=== PATIENT | female | born 1940 | race Caucasian/White ===

== ENCOUNTER 2018-04-05 21:57 | Inpatient (IN) | payer MEDICARE, OTHER, SELFPAY ==
[2018-04-05 21:58] VITALS: BP 161/63; PULSE 61; RESP 12; TEMP 36.3; O2SAT 97; BMI 23.8
--- NOTE | 2018-04-05 22:01 | EKG12_ITS ---
Test Reason : CHEST PAIN Blood Pressure : / mmHG Vent. Rate : 064 BPM Atrial Rate : 064 BPM P-R Int : 174 ms QRS Dur : 078 ms QT Int : 416 ms P-R-T Axes : 071 -10 058 degrees QTc Int : 429 ms Normal sinus rhythm Normal ECG Confirmed by HEMALATHA AREVALO, ELADIO ([id number]), scientific publications editor NILTON UMANZOR ([id number]) on 04/09/2018 8:57:12 AM Referred By: BRONSON/JHONY Confirmed By:ELADIO PENNY MD
--- NOTE | 2018-04-05 22:22 | RAD_ITS ---
STUDY: X-RAY CHEST REASON FOR EXAM: Female, 78 years old. Cough with shortness of breath. TECHNIQUE: 1 view COMPARISON: Prior chest CT exam on February 14, 2014. No prior chest examination. FINDINGS: The lung paiz are well-expanded without major consolidation or focal atelectasis. There is no demonstrated pleural abnormality. The lung nodules as demonstrated on the prior chest CT exam are not apparent on portable chest radiography. The pulmonary nodule at the right lung base may be vaguely visualized just above the surface of the right diaphragm. If so, it does not appear to be substantially changed in size compared to the CT exam. Normal size heart. Normal mediastinum and micah. Normal visualized pulmonary arteries. There is atherosclerotic calcification of the aortic arch with tortuosity. There are diffuse degenerative changes of the visualized thoracic spine. Normal visualized ribs, clavicles, and shoulders. There is no demonstrated abnormality of the visualized soft tissue structures of the upper abdomen. RAD/Chest 1 View (Portable) IMPRESSION: No acute pulmonary findings. Negative for major consolidation, focal atelectasis, cardiomegaly or pleural effusion. Multiple noncalcified nodules were identified on the prior CT exam of February 14, 2014. Only the nodule at the right lung base is vaguely visible and does not appear to be significantly changed in size. The other nodules are not apparent. There is Electronically Signed: Michell Mtz MD at 22:51 EDT , Service support ,
[2018-04-05 22:25] LABS: Absolute Lymphocyte Count 3.86 X10^3/ul (0.83-4.51); Absolute Neutrophil Count 5.1 X10^3/uL (2.0-7.7); Basophil# 0.01 X10^3/uL; Basophil% 0.1 % (0-1); Eosinophil# 0.17 X10^3/uL; Eosinophils% 1.7 % (0-5); Hematocrit 44.1 % (37-47); Lymphocyte # 3.86 X10^3/ul (4.0); Lymphocyte % 37.6 % (19-41); Mean Corp Hgb Conc 31.7 g/gl (32-36); Mean Corpuscular Hgb 26.3 pg (27.0-32.0); Mean Corpuscular Volume 82.7 fL (81-99); Mean Platelet Vol. 11.5 fl (6.2-12.0); Monocyte# 1.12 X10^3/uL; Monocyte% 10.9 % (0-10); Neutrophil % 49.6 % (47-70); POSITIVE COUNT NO; POSITIVE DIFFERENTIAL NO; POSITIVE MORPHOLOGY NO; Platelet Count 158 K/mm3 (150-450); RBC Distribution Width CV 13.9 % (11.6-14.6); RBC Distribution Width SD 41.5 fl (35.1-43.9); Red Blood Count 5.33 M/mm3 (4.2-5.4); White Blood Count 10.3 K/mm3 (4.4-11.0)
[2018-04-05 22:50] VITALS: BP 144/61; PULSE 65; RESP 14; O2SAT 99
[2018-04-05 22:52] LABS: Anion Gap 8 (5-15); BUN 37 mg/dL (7-18); BUN/Creat Ratio 33.9 RATIO (10-20); Calcium,Total 9.5 mg/dL (8.5-10.1); Chloride 104 mmol/L (98-107); Creatinine, Serum 1.09 mg/dL (0.55-1.02); EST Glomerular Filtration Rate 52 mL/min (>60); Est Glom Filt Rate - Afr Amer 63 mL/min (>60); Estimated Creatinine Clearance 37.32 ml/min; Glucose 116 mg/dL (74-106); Potassium 4.4 mmol/L (3.5-5.1); Sodium Level 139 mmol/L (136-145)
[2018-04-05 23:36] VITALS: BP 133/64; PULSE 58; RESP 14; O2SAT 98
[2018-04-06] VITALS (15 sets, daily range): BP systolic 135–159; BP diastolic 64–72; PULSE 50–80; RESP 14–20; TEMP 36.7–37.1; O2SAT 95–99; BMI 24.5; BMI 24.6
[2018-04-06 00:13] LABS: AST(SGOT) 68 U/L (15-37); Alanine Aminotransfer ALT/SGPT 45 U/L (13-56); Albumin, Serum 3.9 g/dL (3.2-5.0); Alkaline Phosphatase 85 U/L (45-117); Bilirubin, Direct 0.28 mg/dL (0.00-0.30); Globulin 3.9 g/dL (2.2-4.2); Lipase 264 U/L (73-393); Protein, Total 7.8 g/dL (6.4-8.2)
--- NOTE | 2018-04-06 00:14 | ED.DCSUM_ITS ---
- ER Visit Summary Date of Service: 04/06/18 Chief Complaint: chest pain History of Present Illness: The patient is a 78 F who presents for chest pain. Patient is having lower substernal upper epigastric chest pain that began this morning at rest. Patient describes it as a crushing pain that radiates straight through into her back. It lasted approximately 20 minutes and then subsided. This afternoon she had another episode that resolved, and then this evening a third episode. At that time she came to the emergency department for evaluation. Pain is improved if she coughs or gets up and walks around. It is worsened by nothing. She denies fever, shortness of breath, abdominal pain, nausea or vomiting, urinary symptoms. She is currently having an episode of vertigo that started 3 days ago and she has had associated nausea with that, but none worsened with the chest pain. She states that she had vaginal bleeding yesterday, and is status post a total hysterectomy. She also felt like her neck was stiff earlier. She has history of diabetes, hypertension, hypercholesterolemia, history of esophageal spasms that she states feels similar to her chest pain today but they occur much higher in her chest, vertigo , cholecystectomy and hysterectomy. She denies smoking. No cardiac history. Physical Examination: Vital signs: afebrile, hemodynamically stable, no hypoxia on room air General: well nourished, well developed, in no distress Skin: warm, dry, no rash, no pallor HEENT: normocephalic and atraumatic; PERRL, EOMI, no nystagmus, moist mucous membranes Cardiovascular: regular rate and rhythm without murmurs, no peripheral edema, 2 + pulses all distal extremities, no chest tenderness Respiratory: No increased work of breathing, lungs are clear to auscultation bilaterally, no rales, rhonchi or wheezing Abdominal: Abdomen is soft, nontender with normoactive bowel sounds, no guarding or rebound, no masses MSK: Moves all extremities, no deformities, normal strength Neuro: Awake and alert, oriented ?4. No facial droop, sensation and motor function intact and symmetric Test Results: Abnormal Lab Results 04/05/18 04/05/18 04/05/18 22:15 22:15 22:15 WBC 10.3 RBC 5.33 Hgb 14.0 Hct 44.1 MCV 82.7 MCH 26.3 L MCHC 31.7 L RDW 13.9 RDW Differential 41.5 Plt Count 158 MPV 11.5 Immature Gran % (Auto) 0.100 Neut % (Auto) 49.6 Lymph % (Auto) 37.6 Harding % (Auto) 10.9 H Eos % (Auto) 1.7 Baso % (Auto) 0.1 Absolute Neuts (auto) 5.1 Absolute Lymphs (auto) 3.86 Total Counted Not Reportable Sodium 139 Potassium 4.4 Chloride 104 Carbon Dioxide 27.0 Anion Gap 8 BUN 37 H Creatinine 1.09 H Estim Creat Clear Calc 37.32 Est GFR (MDRD) Af Amer 63 Est GFR (MDRD) Non-Af 52 L BUN/Creatinine Ratio 33.9 H Glucose 116 H Calcium 9.5 Total Bilirubin 1.30 H Direct Bilirubin 0.28 AST 68 H ALT 45 Alkaline Phosphatase 85 Troponin I < 0.015 Total Protein 7.8 Albumin 3.9 Globulin 3.9 Lipase 264 POC Glucose 04/06/18 04/06/18 04/06/18 02:02 04:51 04:51 WBC 7.5 RBC 4.84 Hgb 12.8 Hct 39.7 MCV 82.0 MCH 26.4 L MCHC 32.2 RDW 13.9 RDW Differential 40.8 Plt Count 149 L MPV 12.5 H Immature Gran % (Auto) 0.300 Neut % (Auto) 49.3 Lymph % (Auto) 34.7 Harding % (Auto) 13.3 H Eos % (Auto) 2.3 Baso % (Auto) 0.1 Absolute Neuts (auto) 3.7 Absolute Lymphs (auto) 2.60 Total Counted Not Reportable Sodium 141 Potassium 4.1 Chloride 105 Carbon Dioxide 27.0 Anion Gap 9 BUN 29 H Creatinine 0.84 Estim Creat Clear Calc 48.43 Est GFR (MDRD) Af Amer 85 Est GFR (MDRD) Non-Af 70 BUN/Creatinine Ratio 34.6 H Glucose 139 H Calcium 8.8 Total Bilirubin Direct Bilirubin AST ALT Alkaline Phosphatase Troponin I < 0.015 < 0.015 Total Protein Albumin Globulin Lipase POC Glucose 04/06/18 06:57 WBC RBC Hgb Hct MCV MCH MCHC RDW RDW Differential Plt Count MPV Immature Gran % (Auto) Neut % (Auto) Lymph % (Auto) Harding % (Auto) Eos % (Auto) Baso % (Auto) Absolute Neuts (auto) Absolute Lymphs (auto) Total Counted Sodium Potassium Chloride Carbon Dioxide Anion Gap BUN Creatinine Estim Creat Clear Calc Est GFR (MDRD) Af Amer Est GFR (MDRD) Non-Af BUN/Creatinine Ratio Glucose Calcium Total Bilirubin Direct Bilirubin AST ALT Alkaline Phosphatase Troponin I Total Protein Albumin Globulin Lipase POC Glucose 146 H Clinical Impression(s) from Imaging Studies Chest X-Ray 04/05/18 22:22 IMPRESSION: No acute pulmonary findings. Negative for major consolidation, focal atelectasis, cardiomegaly or pleural effusion. Multiple noncalcified nodules were identified on the prior CT exam of February 14, 2014. Only the nodule at the right lung base is vaguely visible and does not appear to be significantly changed in size. The other nodules are not apparent. There is Electronically Signed: Michell Mtz MD at 22:51 EDT , Service support , Emergency Department Course and Treatment: Patient presents with 3 episodes of pain that she described as crushing. She has radiation into her back, however if this were an aortic dissection, the pain would not be intermittent with complete resolution for long periods of time in between. EKG showed a sinus rhythm without ischemia or ectopy. Troponin negative. Patient had no leukocytosis. Because of the location of the pain in the radiation into the back, hepatic function and lipase were checked to evaluate for possible pancreatitis. Patient was offered and declined a pelvic exam to evaluate her for the episode of vaginal bleeding that is since resolved. Patient was given aspirin. She remained pain-free while in the emergency department. Because of her age, significant risk factors, and the concerning description of crushing chest pain, patient was admitted for further chest pain workup. Treatment Plan: [] Disposition: [] Impression: Chest pain, concern for atypical angina This note was generated with [employer] software. It may contain incorrect words, spelling, and punctuation that were not noted in review of the chart prior to signing ED Disposition - Plan for ED Patient: Disposition: Acute Care [facility] Chief Complaint: Chest Pain
[2018-04-06] MEDS: Aspirin 81 MG TAB.CHEW 324 MG PO (00:49)
--- NOTE | 2018-04-06 01:43 | EKG12_ITS ---
Test Reason : ADMIT Blood Pressure : / mmHG Vent. Rate : 059 BPM Atrial Rate : 059 BPM P-R Int : 174 ms QRS Dur : 086 ms QT Int : 440 ms P-R-T Axes : 014 -28 052 degrees QTc Int : 435 ms Sinus bradycardia Otherwise normal ECG When compared with ECG of 05-APR-2018 22:07, MANUAL COMPARISON REQUIRED, DATA IS UNCONFIRMED Confirmed by BUD AREVALO, AROLDO ([id number]), staff editor NILTON UMANZOR ([id number]) on 04/11/2018 2:37:45 PM Referred By: STEFANO Confirmed By:AROLDO FARRELL MD
--- NOTE | 2018-04-06 02:58 | PCM.HP.STD ---
Problem List (1) Chest pain Status: Acute (2) Multiple lung nodules Status: Acute (3) Type II diabetes mellitus Status: Chronic (4) Hypertension Status: Chronic History of Present Illness Date of Admission: 04/06/18 Chief Complaint: epigastric pain The patient is a 78 year old F with a PMH as above who presents with 3 intermittent, self-resolving episodes of epigastric pain that she describes as crushing and goes to her back. She had the first episode in the morning, then when around lunch and then her last around dinner, at which point her brought her in to the hospital. She denies any previous cardiac history and does not have a significant family history. She has had previous stress tests in the past that were negative for ischemia, her most recent was 06/2017 with an EF of 83%. When she points to her pain, she points to her epigastric region. There is no radiation to her chest, jaw or arm. She did not have any blurry vision or SOB, and the pain lasted for about 15 minutes. She is currently without chest pain. She states that she has been having an episode of vertigo for the last few days which happens 1-2 times per year for the last 10-15 years. She denies chest pain with activity, only with rest today. She has not had chest pain with activity in the past. Her only h/o chest pain is related to her esophageal spasms. In the ER he EKG was non-ischemic and her troponin was normal. Past Medical History Past Medical History (Chronic Problems): Chronic Problems Peripheral neuropathy (Chronic) Type II diabetes mellitus (Chronic) Hypertension (Chronic) Allergies acetaminophen [From Vicodin] Allergy (Verified 04/05/18 22:00) Unknown codeine Allergy (Verified 04/05/18 22:00) Anaphylaxis hydrocodone bitartrate [From Vicodin] Allergy (Verified 04/05/18 22:00) Unknown zolpidem tartrate [From Ambien] Adverse Reaction (Verified 04/05/18 22:00) Other hallucinations CRAB Allergy (Uncoded 04/05/18 22:00) Swollen lymph glands Home Medications: Ambulatory Orders Medication Instructions Recorded Atorvastatin Calcium [Lipitor] 40 mg PO QHS 02/14/14 Gabapentin 600 mg PO QHS 02/14/14 Metformin [Metformin HCl] 1,000 mg PO BID 02/14/14 Tolterodine Tartrate [Tolterodine 2 mg PO QHS 02/14/14 Tartrate ER] Amlodipine [Norvasc] 5 mg PO DAILY 04/05/18 Glimepiride 1 mg PO DAILY 04/05/18 Hyoscyamine [Levsinex] 0.125 mg PO Q12 PRN 04/05/18 Irbesartan [Avapro] 300 mg PO QHS 04/05/18 Meloxicam 7.5 mg PO DAILY 04/05/18 Ranitidine [Zantac] 150 mg PO BID 04/05/18 Magnesium PO QHS 04/06/18 Sitagliptin Phosphate [Januvia] 100 mg PO DAILY 04/06/18 Surgical History: hysterectomy, - - section, surgery for ectopic , bilateral of oophorectomy. 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 Denies: Hematemesis, Hematochezia, Nausea, Vomiting Genitourinary: Denies: Dysuria Musculoskeletal: Denies: Joint Pain, Joint Tenderness Skin: Denies: Rash, Wounds Neurological: Denies: Numbness, Tingling, Focal weakness Psychiatric: Denies: Anxiety, Depression Hematologic/ Lymphatic: Denies: Easy Bruising, Easy Bleeding VTE Information - Inpt Only VTE Present on Admission: No Patient Problems: Active and Suspected Problems Chest pain (Acute) - Physical Exam General: Alert, Oriented x3, Cooperative, No apparent distress HEENT: Atraumatic, PERRLA, EOMI, Normocephalic Oral: Moist Mucosa Neck: Supple, No JVD Lungs: Clear to auscultation, Normal air movement, No rhonchi, No wheeze, No rales Cardiovascular: Regular rate, Regular Rhythm, Normal S1, Normal S2 Abdomen: Soft, Non Tender, Non-Distended, No Hepato-splenomegaly Extremities: No edema, Capillary Refill Less than 3 Seconds Skin: No rashes, No breakdown Neurological: Neuro grossly intact, Sensory exam intact to light touch and pain Psych/Mental Status: Normal Affect, Appropriate Vital Signs Temp Pulse Resp BP Pulse Ox 98.3 F 62 16 159/72 H 95 04/06/18 01:30 04/06/18 01:57 04/06/18 01:30 04/06/18 01:30 04/06/18 01:30 Oxygen Delivery Method Room Air Weight: 143 lb 4.807 oz Body Mass Index (BMI) 24.5 Assessment/Plan All Active Problems Chest pain (Acute) Liver lesion, right lobe (Acute) Kidney stone on left side (Acute) Multiple lung nodules (Acute) 1. Chest pain r/o/Epigastric pain/HTN/HLD - Unsure as to the cause, she did state that the third time she had her chest pain she began to panic which made the pain worse and to last longer - No significant family h/o heart disease and no personal hx with a stress test which was normal in june 2017 - Will trend troponins - EKG in am - Will monitor overnight - C/w norvasc, ARB, statin 2. DM2 - will hold her home medications and start SSI 3. Urinary incontinence - Stable - c/w tolterodine 4. Pulmonary nodules - The previous CT chest nodules do not appear to be present after 3 years on the CXR today - Outpatient follow-up DVT: Heparin Diet: Cardiac Code Visit OBSV E&M: 91065 Initial observation care L3
[2018-04-06 05:33] LABS: Absolute Neutrophil Count 3.7 X10^3/uL (2.0-7.7); Basophil# 0.01 X10^3/uL; Basophil% 0.1 % (0-1); Eosinophil# 0.17 X10^3/uL; Eosinophils% 2.3 % (0-5); Hematocrit 39.7 % (37-47); Hemoglobin 12.8 g/dl (12.0-15.0); Lymphocyte % 34.7 % (19-41); Mean Corp Hgb Conc 32.2 g/gl (32-36); Mean Corpuscular Hgb 26.4 pg (27.0-32.0); Mean Platelet Vol. 12.5 fl (6.2-12.0); Monocyte% 13.3 % (0-10); Neutrophil % 49.3 % (47-70); Platelet Count 149 K/mm3 (150-450); RBC Distribution Width CV 13.9 % (11.6-14.6); RBC Distribution Width SD 40.8 fl (35.1-43.9); Red Blood Count 4.84 M/mm3 (4.2-5.4); White Blood Count 7.5 K/mm3 (4.4-11.0)
[2018-04-06 05:34] LABS: POSITIVE COUNT NO; POSITIVE DIFFERENTIAL NO; POSITIVE MORPHOLOGY NO
[2018-04-06 05:47] LABS: Anion Gap 9 (5-15); BUN 29 mg/dL (7-18); BUN/Creat Ratio 34.6 RATIO (10-20); Calcium,Total 8.8 mg/dL (8.5-10.1); Chloride 105 mmol/L (98-107); Creatinine, Serum 0.84 mg/dL (0.55-1.02); EST Glomerular Filtration Rate 70 mL/min (>60); Est Glom Filt Rate - Afr Amer 85 mL/min (>60); Estimated Creatinine Clearance 48.43 ml/min; Glucose 139 mg/dL (74-106); Potassium 4.1 mmol/L (3.5-5.1); Sodium Level 141 mmol/L (136-145)
[2018-04-06 07:10] LABS: Bedside Glucose 146 mg/dL (70-110)
[2018-04-06] MEDS: Famotidine 20 MG Tablet PO (09:38)
[2018-04-06] MEDS: Atorvastatin Calcium 40 MG Tablet PO (09:38)
[2018-04-06] MEDS: amLODIPine 5 MG Tablet PO (09:38)
[2018-04-06] MEDS: Losartan Potassium 100 MG Tablet PO (09:39)
[2018-04-06] MEDS: Insulin Lispro 100 UNIT/ML INSULN.PEN SQ (11:10)
[2018-04-06 11:11] LABS: Bedside Glucose 207 mg/dL (70-110)
--- NOTE | 2018-04-06 16:20 | STEWCON_ITS ---
Reason For Study: CHEST PAIN Stress Results Protocol: Terence Protocol Maximum Predicted HR: 143 bpm Target HR: 122 bpm% Max imum Predicted HR: 90 % DurationHeart Rate Stage (mm:ss) (bpm) BPCom ment BASELINE 58 148/68 STAGE 1 3:00 11 1 152/60 STAGE 2 3:00 12 2 182/60 STAGE 3 0:18 12 9 / PEEWEE BLE TO KEEP UP WITH SPEED OF TREADMILL RECOVERY\ 70 140/50 Stress Duration: 6:18 mm:ss Maximum Stress HR: 129 bpm Baseline Echocardiogram Findings Stress Echo Wall motion Data Resting WMIntermediate WMStress WM Resting Wall Motion Wall Motion Stress No regional wall motion No regional wall motion abnormalities noted. abnormalities noted. Ejection Fraction 60 %. Ejection Fraction 75 %. Stress Results Normal blood pressure response to exercise. Exercise was stopped due to achievement of target heart rate. Interpretation Summary Exercise stress echo. Stress protocol: Resting EKG demonstrates sinus bradycardia with a rate of 57 bpm. Resting blood pressure is 148/68 mmHg. The patient exercised according to the regular Terence protocol for a total duration of 6 minutes and 18 seconds. The maximum heart rate attained was 129 bpm which was 90% of the maximum predicted heart rate the maximum workload attained was 7.9 metabolic equivalents. The patient maintained sinus rhythm throughout the recording. At rest there were no ST or T-wave changes noted suggest ischemia at peak exercise upsloping ST changes only were noted with no meet the criteria for ischemia. No clinical angina was noted the test was terminated due to leg fatigue and shortness of breath. Stress echo: The resting echocardiographic images demonstrate an ejection fraction of 60-65% no wall motion abnormalities were noted. The patient exercised according to the Terence protocol for a total duration of 6 minutes and 18 seconds the ejection fraction at peak exercise was noted to be 70-75%. No wall motion abnormalities were noted and no obvious ischemia was present. Conclusion: Normal exercise stress echo with no evidence of ischemia at a moderate workload. Ordering Physician: Stevie Lunsford Performed By: Bee Ospina, MAHAD, RVT
[2018-04-06] MEDS: metFORMIN HCl 1,000 MG Tablet 1000 MG PO (17:14)
[2018-04-06] MEDS: Tolterodine Tartrate 2 MG CAP.SA PO (22:40)
[2018-04-06] MEDS: Gabapentin 600 MG Tablet PO (22:40)
[2018-04-07 03:12] VITALS: PULSE 44
[2018-04-07 03:35] VITALS: BP 138/65; PULSE 51; RESP 16; TEMP 36.9; O2SAT 95
--- NOTE | 2018-04-07 05:00 | EKG12_ITS ---
Test Reason : AM Blood Pressure : / mmHG Vent. Rate : 051 BPM Atrial Rate : 051 BPM P-R Int : 168 ms QRS Dur : 088 ms QT Int : 464 ms P-R-T Axes : 049 -11 029 degrees QTc Int : 427 ms Sinus bradycardia Otherwise normal ECG When compared with ECG of 06-APR-2018 01:53, MANUAL COMPARISON REQUIRED, DATA IS UNCONFIRMED Confirmed by BUD AREVALO, AROLDO ([id number]), non linear editor NILTON UMANZOR ([id number]) on 04/11/2018 2:35:28 PM Referred By: STEFANO Confirmed By:AROLDO FARRELL MD
[2018-04-07 06:21] LABS: Hematocrit 39.5 % (37-47); Hemoglobin 12.8 g/dl (12.0-15.0); Mean Corp Hgb Conc 32.4 g/gl (32-36); Mean Corpuscular Hgb 26.7 pg (27.0-32.0); Mean Corpuscular Volume 82.3 fL (81-99); Platelet Count 137 K/mm3 (150-450); RBC Distribution Width CV 13.7 % (11.6-14.6); RBC Distribution Width SD 40.8 fl (35.1-43.9); White Blood Count 7.2 K/mm3 (4.4-11.0)
[2018-04-07 06:30] LABS: Anion Gap 9 (5-15); BUN 22 mg/dL (7-18); BUN/Creat Ratio 26.4 RATIO (10-20); Calcium,Total 8.8 mg/dL (8.5-10.1); Chloride 106 mmol/L (98-107); Creatinine, Serum 0.83 mg/dL (0.55-1.02); EST Glomerular Filtration Rate 71 mL/min (>60); Est Glom Filt Rate - Afr Amer 86 mL/min (>60); Estimated Creatinine Clearance 49.02 ml/min; Glucose 126 mg/dL (74-106); Potassium 4.1 mmol/L (3.5-5.1); Sodium Level 141 mmol/L (136-145)
[2018-04-07 06:35] LABS: Scan Indicated on CBC? Y/N NO
[2018-04-07 06:39] LABS: Partial Thromboplast Time 32.1 Seconds (24.1-36.2); Prothrombin Time (Protime)PT. 13.2 SECONDS (11.7-14.9)
[2018-04-07 07:57] VITALS: PULSE 48
[2018-04-07 09:35] VITALS: BP 137/67; PULSE 58; RESP 16; TEMP 36.8; O2SAT 97
--- NOTE | 2018-04-07 11:52 | CASEMGMT ---
Face to Face with patient for initial transition planning/care coordination assessment. TACHO CABALLERO introduced self and role at [facility], pt voices understanding and consents to assessment at this time. Pt is sitting up on side of bed in no distress at this time. Pt is A/Ox4 at this time and answers all questions appropriately at this time. Care providers, pharmacy, and demographics verified. See attached link. Pt voices no further concerns/needs at this time. Advised pt to ask for CM if any further questions/concerns/needs arise, voices understanding. [place] T[place] CAB[place]
[2018-04-07 11:58] VITALS: PULSE 64
[2018-04-07] MEDS: Famotidine 20 MG Tablet PO (14:08)
--- NOTE | 2018-04-07 14:11 | DCINST_ITS ---
- Discharge Diagnoses Current Active Problems: Current Active and Chronic Problems Chest pain (Acute) You will use the following diet at home:: Calorie/Carbohydrate Controlled ( specify 1200, 1400, etc) - 1800 neeta Your food should be the consistency of: Regular Your liquids should be the consistency of: Regular/Thin Discharge Activity: Return to Normal Activity Weight Bearing Status: Full weight bearing Allergies/Adverse Reactions: Allergies acetaminophen [From Vicodin] Allergy (Verified 04/05/18 22:00) Unknown codeine Allergy (Verified 04/05/18 22:00) Anaphylaxis hydrocodone bitartrate [From Vicodin] Allergy (Verified 04/05/18 22:00) Unknown zolpidem tartrate [From Ambien] Adverse Reaction (Verified 04/05/18 22:00) Other hallucinations CRAB Allergy (Uncoded 04/05/18 22:00) Swollen lymph glands Medications to take at Discharge Atorvastatin Calcium [Lipitor] 40 mg PO QHS 02/14/14 Gabapentin 600 mg PO QHS 02/14/14 Metformin [Metformin HCl] 1,000 mg PO BID 02/14/14 Tolterodine Tartrate [Tolterodine Tartrate ER] 2 mg PO QHS 02/14/14 Amlodipine [Norvasc] 5 mg PO DAILY 04/05/18 Glimepiride 1 mg PO DAILY 04/05/18 Hyoscyamine [Levsinex] 0.125 mg PO Q12 PRN 04/05/18 Irbesartan [Avapro] 300 mg PO QHS 04/05/18 Meloxicam 7.5 mg PO DAILY 04/05/18 Ranitidine [Zantac] 150 mg PO BID 04/05/18 Magnesium PO QHS 04/06/18 Sitagliptin Phosphate [Januvia] 100 mg PO DAILY 04/06/18 Primary Care Physician: Dhiraj Julian MD [Primary Care Provider] - Please follow up with your Primary Care Physician in: in 2-3 weeks Test Results: Test results from this visit will be discussed in further detail at your follow- up appointment, if applicable.
--- NOTE | 2018-04-09 10:11 | PCM.DC.SUM ---
Discharge Date and Diagnosis Date of Admission: 04/06/18 Date of Discharge: 04/07/18 - Primary Discharge Diagnosis #1 musculoskeletal chest pain #2 type 2 diabetes - Secondary Discharge Diagnosis Chronic Problems Peripheral neuropathy (Chronic) Type II diabetes mellitus (Chronic) Hypertension (Chronic) Hospital Course and Treatment Operations: None Procedures: - - Stress echocardiogram Summary of Care Provided: The patient is a 78 year old F who was seen in the emergency room at [facility] with chief complaint of precordial chest pain. Workup in the emergency room included labs which were remarkable for a creatinine of 1.09 and a BUN of 37, bilirubin was high at 1.3, AST was high at 68, troponin was below 0.015. EKG showed no evidence of ischemic changes. Patient's chest x-ray did not show any acute process. Patient was placed in observation status initially, this was changed to full admission same day, serial enzymes were obtained and these were all negative. Patient underwent a stress echocardiogram on 04/07/18, this test showed no evidence of ischemia and the patient had a normal EF. On that date, patient was seen and examined by myself and felt to be in stable condition for discharge home Discharge Activity: Return to Normal Activity Weight Bearing Status: Full weight bearing Home Medications: Medications to take at Discharge Atorvastatin Calcium [Lipitor] 40 mg PO QHS 02/14/14 Gabapentin 600 mg PO QHS 02/14/14 Metformin [Metformin HCl] 1,000 mg PO BID 02/14/14 Tolterodine Tartrate [Tolterodine Tartrate ER] 2 mg PO QHS 02/14/14 Amlodipine [Norvasc] 5 mg PO DAILY 04/05/18 Glimepiride 1 mg PO DAILY 04/05/18 Hyoscyamine [Levsinex] 0.125 mg PO Q12 PRN 04/05/18 Irbesartan [Avapro] 300 mg PO QHS 04/05/18 Meloxicam 7.5 mg PO DAILY 04/05/18 Ranitidine [Zantac] 150 mg PO BID 04/05/18 Magnesium PO QHS 04/06/18 Sitagliptin Phosphate [Januvia] 100 mg PO DAILY 04/06/18 Primary Care Physician: Dhiraj Julian MD [Primary Care Provider] - Please follow up with your Primary Care Physician in: in 2-3 weeks Please Follow Up With: Dhiraj Julian MD Disposition: Home Minutes spent on discharge:: 31 Patient Condition:: Stable Medical Necessity - Tobacco Use Smoking Status: Never smoker Meaningful Use Info Meaningful Use Diagnoses (Choose all that apply): None applicable Code Visit Inpatient E&M: 75521 Disch Hosp
== END 2018-04-07 14:10 | disposition home or self-care (01) | DRG 313 ==
LOC: ED 23:10 → PCU 04-06 00:46
PROVIDERS: Admitting Provider Family Medicine; Emergency Provider Emergency Medicine; Family Provider Family Medicine; PCP Family Medicine; Visit Provider Internal Medicine
DX: R07.89 Other chest pain (principal); R32 Unspecified urinary incontinence; E11.42 Type 2 diabetes mellitus with diabetic polyneuropathy; Z79.84 Long term (current) use of oral hypoglycemic drugs; I10 Essential (primary) hypertension; E78.5 Hyperlipidemia, unspecified
CPT/HCPCS: 36415; 71045; 80048; 80076; 82962; 83690; 84484; 85025; 85027; 85610; 85730; 93005; 93017; 93350; 99283; J7030; J7040; A4216

== ENCOUNTER 2019-02-11 19:51 | Emergency (ER) | payer MEDICARE, OTHER, SELFPAY ==
[2019-02-11 19:52] VITALS: BP 159/82; PULSE 73; RESP 17; RESP 18; TEMP 36.3; BMI 25.2
--- NOTE | 2019-02-11 20:26 | ED.VISSUMM ---
- ER Visit Summary Date of Service: 02/11/19 Chief Complaint: Left-sided nosebleed History of Present Illness: The patient is a 78 F typically does not get nosebleeds. States that she did have one several weeks ago and Dr. Gianluca Sorenson of the ENT group did have to cauterize it. She denies being on any blood thinners. She is had no nasal trauma. Physical Examination: Well-appearing older female no acute distress. Vital signs are stable and afebrile. Initial blood pressure 159/82. HEENT exam blood for the left naris. Small blood in the posterior pharynx. No clots. Neck nontender. Lungs clear to auscultation bilaterally. Heart regular rhythm no murmur. Abdomen soft nontender. Extremities moves all 4. Neurologically awake alert. Test Results: None. Emergency Department Course and Treatment: Afrin soaked cotton balls were placed in both sides of her nose. After about 10 minutes he removed. Bleeding it resolved. The bleeding was on the left side anteriorly. I placed a nasal tampon. On repeat exam at 2127 patient has no further bleeding is doing well. She is comfortable being discharged home. Treatment Plan: Anterior nasal pack. Antibiotic therapy. Follow-up in ENT in 2 to 3 days. Return if rebleed and unable to stop. Disposition: Discharge Impression: Acute nosebleed. Anterior nasal pack by ER This note was generated with [employer] dictation software. It may contain incorrect words, spelling, and punctuation that were not noted in review of the chart prior to signing ED Disposition - Plan for ED Patient: Referrals: Dhiraj Julian MD [Primary Care Provider] -
--- NOTE | 2019-02-11 21:31 | ED.DEP ---
ED Disposition - Plan for ED Patient: Disposition: Home or Assisted Living Instructions: Nosebleed Prescriptions: Amoxicillin 250 mg PO TID #9 cap Prescription Printed Referrals: Jeff Hernandez MD [STAFF PHYSICIAN] - 3-5 Days Additional Instructions: If rebleeds hold direct pressure by pinching her nose for 20 minutes. If unable stop return to the ER. Nasal packing was pulled out in 3 days. Call and follow-up with Dr. Sorenson's office. Antibiotic daily until pack removed.
[2019-02-11 21:41] VITALS: RESP 18
== END 2019-02-11 21:42 | disposition home or self-care (01) ==
PROVIDERS: Emergency Provider Emergency Medicine; Family Provider Family Medicine; PCP Family Medicine
DX: R04.0 Epistaxis (principal); E11.9 Type 2 diabetes mellitus without complications; Z79.84 Long term (current) use of oral hypoglycemic drugs; Z79.899 Other long term (current) drug therapy
CPT/HCPCS: 30901; 99282

== ENCOUNTER 2019-02-12 22:12 | Emergency (ER) | payer MEDICARE, OTHER, SELFPAY ==
[2019-02-11 19:52] VITALS: BMI 25.2
[2019-02-12 22:13] VITALS: BP 154/75; PULSE 61; RESP 12; TEMP 36.4; O2SAT 98; BMI 24.4
--- NOTE | 2019-02-12 22:35 | ED.VIS.GEN ---
History of Present Illness Chief Complaint: Nosebleed Informant: Patient Narrative: Patient stated just prior to arrival her left nares started bleeding again. She was seen in the department yesterday for nosebleed. She was given Afrin nasal spray and a clip to hold pressure. A nasal tampon was inserted. Right now she is having mild stabbing. Nothing going down the back of her throat. She has an appointment on Saturday with ENT. - Past Medical History (1) Chest pain Status: Acute (2) Kidney stone on left side Status: Acute (3) Liver lesion, right lobe Status: Acute (4) Multiple lung nodules Status: Acute (5) Hypertension Status: Chronic (6) Peripheral neuropathy Status: Chronic (7) Type II diabetes mellitus Status: Chronic Past Medical History - Allergies and Home Meds Allergies/Adverse Reactions: Allergies acetaminophen [From Vicodin] Allergy (Verified 02/12/19 22:13) Unknown codeine Allergy (Verified 02/12/19 22:13) Anaphylaxis hydrocodone bitartrate [From Vicodin] Allergy (Verified 02/12/19 22:13) Unknown zolpidem tartrate [From Ambien] Adverse Reaction (Verified 02/12/19 22:13) Other hallucinations CRAB Allergy (Uncoded 02/12/19 22:13) Swollen lymph glands Primary Care Physician: Dhiraj Julian MD [Primary Care Provider] - Prior records reviewed: Yes Past Medical History: None - See problem list Surgical History: hysterectomy, - - section, surgery for ectopic , bilateral of oophorectomy. Smoking Status: Never smoker Alcohol: None Drugs: None - Family History Maternal Family History: Reports: Heart Disease Paternal Family History: Reports: No pertinent history Review of Systems General: Denies: Chills, Fever, Sweats Eyes: Denies: Visual changes - bilaterally, Diplopia ENT: Reports: - - Left nosebleed. Denies: Rhinorrhea, Sore throat Cardiovascular: Denies: Chest pain, Palpitations Respiratory: Denies: Dyspnea, Cough, Dyspnea on exertion Gastrointestinal: Denies: Abdominal pain, Nausea, Vomiting, Diarrhea, Melena, Hematochezia Genitourinary: Denies: Dysuria, Hematuria, Frequency Musculoskeletal: Denies: Back pain, Extremity Pain Skin: Denies: Rash, Wounds Neurological: Denies: Headache, Weakness, Numbness Physical Exam Vital Signs/Narrative: Vital Signs Temp Pulse Resp BP Pulse Ox 02/12/19 22:13 97.5 F L 61 12 154/75 H 98 General: Well nourished, Well developed, No Acute Distress Head: Normocephalic, Atraumatic Eyes: Perrl, EOMI ENT: Moist mucous membranes, No rhinorrhea, - - Left anterior nasal packing and perfect position. No active bleeding. Throat exam normal. Mild fluid when she dabs that is pink in nature Neck: Supple, Nontender Cardiovascular: Regular rate, Regular rhythm, No murmurs Respiratory: No distress, CTA bilaterally, Chest nontender Abdomen: Soft, Nontender, Nondistended, Normal bowel sounds Back: Nontender, Normal Inspection Extremities: Nontender, No edema Skin: Normal color, No rash Neurological: Alert, Oriented x3, Cranial nerves II-XII grossly intact, Normal Strength, Normal Sensation Psychological: Normal affect, Normal Mood Diagnostic/Tx/Re-eval - Medical Decision Making Afrin nasal spray was sprayed in her nose over the tampon. This was all the patient needed. Bleeding stopped with pressure for 30 minutes. What was happening was her nasal tampon was getting hard. She was given Afrin to use at home. She will follow-up as an outpatient ED Disposition - Plan for ED Patient: Disposition: Home or Assisted Living Diagnosis: Epistaxis Instructions: Nosebleed Referrals: Dhiraj Julian MD [Primary Care Provider] - Additional Instructions: Follow with your ear nose and throat doctor as scheduled
[2019-02-12] MEDS: Oxymetazoline 0.05% 1 SPRAY SPRAY.BTL NASAL (22:37)
[2019-02-12 23:36] VITALS: BP 150/60; PULSE 74; RESP 16; O2SAT 96
== END 2019-02-12 23:36 | disposition home or self-care (01) ==
PROVIDERS: Emergency Provider Emergency Medicine; Family Provider Family Medicine; PCP Family Medicine
DX: R04.0 Epistaxis (principal); I10 Essential (primary) hypertension; E11.42 Type 2 diabetes mellitus with diabetic polyneuropathy; Z79.84 Long term (current) use of oral hypoglycemic drugs; Z79.899 Other long term (current) drug therapy
CPT/HCPCS: 99282

== ENCOUNTER → 2019-03-12 12:48 | Outpatient (CLI) | payer MEDICARE, OTHER, SELFPAY ==
[2019-02-12 22:13] VITALS: BMI 24.4
--- NOTE | 2019-03-12 13:08 | CDU_ITS ---
Reason For Study: Carotid artery stenosis Rt. Velocities/BP Lt. Velocities/BP Prox CCA 73.9/6.9 cm/sec. Prox CCA 77.7/11.4 cm/sec. Mid CCA 78.3/11.3 cm/sec. Mid CCA 88.8 cm/sec. Dist CCA 70.6/11.3 cm/sec. Dist CCA 74/12.6 cm/sec. Prox ICA 140.7/18.9 cm/sec. Prox ICA 65.5/12.6 cm/sec. Mid ICA 125.7/16 cm/sec. Mid ICA 76.1/13.5 cm/sec. Dist ICA 65.4/11.4 cm/sec. Dist ICA 59.7/12.4 cm/sec. Rt. ICA/CCA = 1.9. Lt. ICA/CCA = 1.0. Prox ECA 179.5/16.3 cm/sec. Prox ECA 67.3/6.9 cm/sec. Rt. Vert. 50.7/10.2 cm/sec. Lt. Vert. 42.8/10.7 cm/sec. Right Extracranial There is homogeneous, irregular atherosclerotic plaque noted in the right common carotid artery. There is heterogeneous, irregular atherosclerotic plaque noted in the right internal carotid artery. There is heterogeneous, irregular atherosclerotic plaque noted in the right external carotid artery. Antegrade flow is noted in the right vertebral artery. Left Extracranial There is heterogeneous, irregular atherosclerotic plaque noted in the left common carotid artery. There is heterogeneous, irregular atherosclerotic plaque noted in the left internal carotid artery. There is heterogeneous, irregular atherosclerotic plaque noted in the left external carotid artery. Antegrade flow is noted in the left vertebral artery. Procedure Carotid Duplex [id number]. Exam performed in department. Interpretation Summary Moderate (50-69%) stenosis right extracranial internal carotid. Mild (<50%) stenosis left extracranial internal carotid. Flow within the vertebral arteries is antegrade bilaterally. Ordering Physician: Reinaldo Kumar Referring Physician: Abdiaziz Julian Performed By: Shavon Graham RVT
== END ==
PROVIDERS: Family Provider Family Medicine; PCP Family Medicine; Referring Provider Ophthalmology; Visit Provider Ophthalmology
DX: I65.22 Occlusion and stenosis of left carotid artery (principal)
CPT/HCPCS: 93880

== ENCOUNTER 2019-06-23 02:00 | Emergency (ER) | payer MEDICARE, OTHER, SELFPAY ==
[2019-06-23 02:01] VITALS: BP 173/72; BP 191/80; PULSE 50; PULSE 53; RESP 16; TEMP 36.3; O2SAT 97; BMI 24.0
--- NOTE | 2019-06-23 02:29 | ED.DCSUM_ITS ---
History of Present Illness Chief Complaint: Nosebleed Informant: Patient Onset: Today Current Severity: Mild Maximum Severity: Mild Narrative: Patient presents with nosebleed from the left side of her nose that woke her f rom sleep about 45 minutes ago. Patient was seen here in early February with similar and required nasal packing. Patient states she is been using her saline nasal spray as instructed. No recent facial trauma. She is not on anticoagulants. - Past Medical History (1) Kidney stone on left side Status: Chronic (2) Liver lesion, right lobe Status: Chronic (3) Multiple lung nodules Status: Chronic (4) Hypertension Status: Chronic (5) Peripheral neuropathy Status: Chronic (6) Type II diabetes mellitus Status: Chronic Past Medical History - Allergies and Home Meds Allergies/Adverse Reactions: Allergies acetaminophen [From Vicodin] Allergy (Verified 06/23/19 02:01) Unknown codeine Allergy (Verified 06/23/19 02:01) Anaphylaxis hydrocodone bitartrate [From Vicodin] Allergy (Verified 06/23/19 02:01) Unknown zolpidem tartrate [From Ambien] Adverse Reaction (Verified 06/23/19 02:01) Other hallucinations CRAB Allergy (Uncoded 06/23/19 02:01) Swollen lymph glands Primary Care Physician: Dhiraj Julian MD [Primary Care Provider] - Doctors: Dr Hernandez Surgical History: hysterectomy, - - section, surgery for ectopic , bilateral of oophorectomy. Lives: Spouse/ Significant Other Smoking Status: Unknown if ever smoked - Family History Maternal Family History: Reports: Heart Disease Paternal Family History: Reports: No pertinent history Review of Systems General: Denies: Chills, Fever Eyes: Denies: Visual changes - bilaterally ENT: Denies: Rhinorrhea, Sore throat Cardiovascular: Denies: Chest pain Respiratory: Denies: Dyspnea Gastrointestinal: Denies: Abdominal pain Neurological: Denies: Headache Hematologic: Denies: Easy bruising, Easy bleeding Allergy: Denies: Uticaria Physical Exam Vital Signs/Narrative: Vital Signs Temp Pulse Resp BP Pulse Ox 06/23/19 02:01 97.3 F L 53 L 16 191/80 H 97 Inital Vital Signs reviewed: Yes General: Well nourished, Well developed ENT: Moist mucous membranes, - - Holding pressure to bilateral nares. Bleeding controlled at this time. Neck: Supple Cardiovascular: Regular rate, Regular rhythm Respiratory: No distress, CTA bilaterally Abdomen: Soft, Nontender Neurological: Alert, Oriented x3 Psychological: Normal affect Diagnostic/Tx/Re-eval - Medical Decision Making Cottonball soaked in Afrin and Cetacaine was first applied to the nose. After 10 minutes this was removed and patient was able to blow large clots out of her nose. Sinus pack was placed in the left nare as patient requested not to have a large Rhino Rocket again if at all possible. Bleeding has been well controlled. She is been able to ambulate up and down the malave without any further bleeding. She is given a nasal clip for home if needed. I did advise her that if her bleeding returns she may need to return for the larger packing. She voices understanding and agreement. She will follow-up with Dr. Osman. ED Disposition - Plan for ED Patient: Disposition: Home or Assisted Living Diagnosis: Epistaxis Instructions: Nosebleed Referrals: Jeff Hernandez MD [STAFF PHYSICIAN] - 3-5 Days
[2019-06-23] MEDS: Oxymetazoline 0.05% 1 SPRAY SPRAY.BTL 2 SPRAY NASAL (02:30)
[2019-06-23 03:26] VITALS: BP 173/72; PULSE 50; RESP 16; O2SAT 97
[2019-06-23] MEDS: Tetracaine/Benzocaine/Butamben 1 APPLIC TOPICAL (03:28)
== END 2019-06-23 03:20 | disposition home or self-care (01) ==
PROVIDERS: Emergency Provider Emergency Medicine; Family Provider Family Medicine; PCP Family Medicine
DX: R04.0 Epistaxis (principal); I10 Essential (primary) hypertension; E11.42 Type 2 diabetes mellitus with diabetic polyneuropathy; Z87.442 Personal history of urinary calculi; Z79.84 Long term (current) use of oral hypoglycemic drugs; Z79.899 Other long term (current) drug therapy
CPT/HCPCS: 30901; 99282

== ENCOUNTER 2020-08-12 11:00 | Outpatient (RCR) | payer MEDICARE, OTHER, SELFPAY | END 2020-08-12 23:59 | LOC: IMMUN 11:00 | PROVIDERS: PCP Family Medicine; Visit Provider Family Medicine | DX: Z23 Encounter for immunization (principal) | CPT/HCPCS: 0011A; 0012A ==

== ENCOUNTER 2020-11-14 19:53 | Emergency (ER) | payer MEDICARE, OTHER, SELFPAY ==
[2020-11-14 19:54] VITALS: BP 128/63; PULSE 66; RESP 16; TEMP 36.6; O2SAT 97; BMI 24.2
--- NOTE | 2020-11-14 21:10 | EDS_ITS ---
HPI HPI - GI History of Present Illness Chief Complaint: Nausea/Vomiting Abdominal Pain/Flank Pain Onset: Days (4-5) Context: Gradual Onset Timing: Intermittent Quality: Sharp Location: - (lower abd) Current Severity: Gone Maximum Severity: Moderate Worsened by: - (occurs when having a BM/diarrhea only, then dissapates) Relieved by: Nothing Nausea/Vomiting/Emesis GI Symptom: Positive for Nausea and Vomiting Onset: Days (4-5) Quality: Positive for Nonbilious; Negative for Blood streaks, Coffee ground and Hematemesis Severity: Severe Diarrhea/Melena/Hematochezia GI Symptom: Positive for Diarrhea; Negative for Melena and Hematochezia Onset: Days (4-5) Stool Quality: Positive for Watery and Black; Negative for Maroon and BRB per rectum Severity: Severe Associated Symptoms Associated Symptoms: Negative for Dysuria, Frequency, Hematuria and Urgency Narrative Narrative: Patient presenting with gastroenteritis-like symptoms after her daughter, with whom she has daily contact, had similar symptoms and got over them after about 6 days. Patient saw her PCP today for this, she is feeling like she is having trouble keeping fluids in her since she is vomiting with any food intake and with anything other than sips of fluids, and with the diarrhea, and was sent here to get IV fluids. She has felt lightheaded on occasion but had no syncope. Recent Illness/Hospitalization: No [facility] Medical History (Updated 11/14/20 @ 22:[address] Osito Rizvi MD) Hypertension Kidney stone on left side Liver lesion, right lobe Multiple lung nodules Peripheral neuropathy Type II diabetes mellitus Home Medications Metformin [Metformin Hcl] 1,000 mg PO BID 02/14/14 [History Last Taken 04/05/18] atorvastatin 40 mg PO QHS 02/14/14 [History Last Taken 04/05/18 40 MG] gabapentin 300 mg PO QHS 02/14/14 [History Last Taken 04/04/18] tolterodine 2 mg PO QHS 02/14/14 [History Last Taken 04/04/18] Ranitidine [Zantac] 150 mg PO BID 04/05/18 [History Last Taken 04/05/18] amlodipine 5 mg PO DAILY 04/05/18 [History Last Taken 04/05/18] glimepiride 1 mg PO DAILY 04/05/18 [History Last Taken 04/05/18] hyoscyamine sulfate 0.125 mg PO Q12 PRN 04/05/18 [History Last Taken 04/05/18] irbesartan [Avapro] 300 mg PO QHS 04/05/18 [History Last Taken 04/06/18] meloxicam 15 mg PO DAILY 04/05/18 [History Last Taken 04/05/18] Januvia 100 mg PO DAILY 04/06/18 [History Last Taken 04/05/18] hydrochlorothiazide 25 mg PO DAILY 02/11/19 [History Last Taken Unknown] apremilast [Otezla] 30 mg PO BID 11/14/20 [History Last Taken Unknown] bupropion HCl 75 mg PO DAILY 11/14/20 [History Last Taken Unknown] fluoxetine mg 11/14/20 [History Last Taken Unknown] magnesium 250 mg PO DAILY 11/14/20 [History Last Taken Unknown] ondansetron 8 mg PO Q8H PRN PRN #20 tab 11/14/20 [Rx Last Taken Unknown] Allergy/AdvReac Type Severity Reaction Status Date / Time acetaminophen [From Vicodin] Allergy Unknown Verified 11/14/20 19:56 codeine Allergy Anaphylaxis Verified 11/14/20 19:56 hydrocodone bitartrate Allergy Unknown Verified 11/14/20 19:56 [From Vicodin] zolpidem tartrate AdvReac Other Verified 11/14/20 19:56 [From Ambien] CRAB Allergy Swollen Uncoded 11/14/20 19:56 lymph glands Surgical History H/O: hysterectomy History of cholecystectomy Social History Smoking Status: Never smoker ROS ROS ED Constitutional Constitutional ED: Denies chills or fever(s) Eyes Eyes: Denies change in vision or diplopia ENT ENT ED: Denies rhinorrhea or sore throat Cardiovascular Cardiovascular: Denies chest pain or palpitations Respiratory/Chest Respiratory/Chest: Denies cough or dyspnea Gastrointestinal Gastrointestinal: Reports abdominal pain, diarrhea, nausea, vomiting and other Details: I know what melena looks/smells like, and I don't have melena. ; Denies melena Genitourinary Genitourinary ED: Denies dysuria or hematuria Musculoskeletal Musculoskeletal: Denies back pain or neck pain Integumentary Denies abscess or rash Neurologic Neurologic: Denies headache(s), paresthesias or weakness Psychiatric Psychiatric: Denies anxiety or suicidal thoughts EXAM Physical Exam Const Vital Signs: 11/14/20 19:54 Temperature 98 F Temperature Source Temporal Pulse Rate 66 Respiratory Rate 16 Blood Pressure 128/63 H Blood Pressure Mean 84 Pulse Ox 97 Oxygen Delivery Method Room Air Positive well nourished and well developed General Appearance ED: well developed and NAD HEENT Reports moist mucous membranes normocephalic and atraumatic Eyes PERRL and EOMs intact bilaterally Neck full ROM and supple Resp normal respiratory effort and clear to auscultation bilaterally Cardio regular rate, regular rhythm and no murmurs GI non-tender and non-distended Auscultation: hyperactive bowel sounds Palpation: soft Back/Spine no CVA tenderness General Back: other FROM Extremity normal to inspection General Extremety ED: Negative for edema, pulses abnormal or tenderness General Extremity: Negative for edema or pulses abnormal Neuro oriented x3, CN's II-XII intact bilaterally and no sensory deficits noted Sensorium / Orientation: awake and alert Motor Exam: strength 5/5 throughout Skin no rashes or lesions noted and no wounds MDM MDM MDM Narrative Medical decision making narrative: Labs as noted below are reviewed. She has prerenal azotemia but no electrolyte disturbances, chronically elevated total bilirubin that is no higher than usual, and no significant leukocytosis or leftward shift. Family was asking about her diverticulosis, I do not think she has acute diverticulitis given the pain that she was having, these are likely unrelated. Her abdomen is benign, she does not have a leukocytosis, and given her recent contact with her daughter who was ill with similar symptoms I suspect this is viral in etiology. She feels much better after IV fluids and Zofran. She is comfortable going home with a prescription for Zofran and following up with her doctor. I did offer stool studies but she did not have diarrhea while she was here. We discussed reasons to return and she is comfortable with that plan. Lab Data Attestation: I reviewed the patient's lab results. Labs: Laboratory Results - last 24 hr 11/14/20 11/14/20 20:35 20:35 WBC 10.3 RBC 5.21 Hgb 13.9 Hct 43.8 MCV 84.1 MCH 26.7 L MCHC 31.7 L RDW Std Deviation 41.4 RDW Coeff of Finesse 13.5 Plt Count 171 MPV 12.4 H Immature Gran % (Auto) 0.200 Neut % (Auto) 54.7 Lymph % (Auto) 34.7 Iroquois % (Auto) 8.7 Eos % (Auto) 1.4 Baso % (Auto) 0.3 Absolute Neuts (auto) 5.6 Absolute Lymphs (auto) 3.56 Nucleated RBC % 0 Sodium 139 Potassium 3.9 Chloride 102 Carbon Dioxide 28.0 Anion Gap 9 BUN 29 H Creatinine 1.02 Estim Creat Clear Calc 38.62 Est GFR (MDRD) Af Amer 67 Est GFR (MDRD) Non-Af 56 L BUN/Creatinine Ratio 28.4 H Glucose 113 H Calcium 9.4 Total Bilirubin 1.20 H AST 28 ALT 43 Alkaline Phosphatase 80 Total Protein 7.2 Albumin 3.8 Globulin 3.4 Albumin/Globulin Ratio 1.1 Discharge Plan Triage Chief Complaint: Nausea/Vomiting ED Provider: Osito Rizvi Dx/Rx/DC Orders Clinical Impression: Viral gastroenteritis, Mild dehydration Instructions: ED Dehydration (Adult), ED Gastroenteritis, Viral (Adult) Prescriptions: New ondansetron 4 mg tablet,disintegrating 8 mg PO Q8H PRN PRN (Reason: Nausea) Qty: 20 RF: 0 No Action tolterodine 2 MG capsule,extended release 24hr 2 mg PO QHS RF: 0 atorvastatin 40 MG tablet 40 mg PO QHS RF: 0 gabapentin 300 MG capsule 300 mg PO QHS RF: 0 Metformin [Metformin Hcl] 1,000 MG tablet 1,000 mg PO BID RF: 0 amlodipine 5 MG tablet 5 mg PO DAILY RF: 0 glimepiride 1 MG tablet 1 mg PO DAILY RF: 0 meloxicam 7.5 MG tablet 15 mg PO DAILY RF: 0 hyoscyamine sulfate 0.375 MG tablet 0.125 mg PO Q12 PRN (Reason: esophageal spasms) RF: 0 irbesartan [Avapro] 300 MG tablet 300 mg PO QHS RF: 0 Ranitidine [Zantac] 150 MG tablet 150 mg PO BID RF: 0 Januvia 100 MG tablet 100 mg PO DAILY RF: 0 hydrochlorothiazide 25 MG tablet 25 mg PO DAILY RF: 0 fluoxetine 10 mg Tablet RF: 0 bupropion HCl 75 mg tablet 75 mg PO DAILY RF: 0 magnesium 250 mg Tablet 250 mg PO DAILY RF: 0 Otezla 30 mg tablet 30 mg PO BID RF: 0 Primary Care Provider: Dhiraj Julian Referrals: Dhiraj Julian MD [Primary Care Provider] - 1-2 Days if not improving Disposition Disposition: Home, self care
[2020-11-14 21:22] LABS: Absolute Lymphocyte Count 3.56 X10^3/uL (0.83-4.51); Absolute Neutrophil Count 5.6 X10^3/uL (2.0-7.7); Basophil# 0.03 X10^3/uL; Basophil% 0.3 % (0-1); Eosinophil# 0.14 X10^3/uL; Eosinophils% 1.4 % (0-5); Hematocrit 43.8 % (37-47); Hemoglobin 13.9 g/dL (12.0-15.0); Lymphocyte # 3.56 X10^3/ul (0.83-4.51); Lymphocyte % 34.7 % (19-41); Mean Corp Hgb Conc 31.7 g/dL (32-36); Mean Corpuscular Hgb 26.7 pg (27.0-32.0); Mean Corpuscular Volume 84.1 fL (81-99); Mean Platelet Vol. 12.4 fl (6.2-12.0); Monocyte# 0.89 X10^3/uL; Monocyte% 8.7 % (0-10); NRBC Flagged by Analyzer 0 % (0-5); Neutrophil # 5.61 X10^3/uL (2.7-7.7); Neutrophil % 54.7 % (47-70); Platelet Count 171 K/mm3 (150-450); RBC Distribution Width CV 13.5 % (11.6-14.6); RBC Distribution Width SD 41.4 fl (35.1-43.9); Red Blood Count 5.21 M/mm3 (4.2-5.4); White Blood Count 10.3 K/mm3 (4.4-11.0)
[2020-11-14] MEDS: 0.9% Normal Saline 1,000 ML 1000 ML IV (21:22)
[2020-11-14] MEDS: Ondansetron 4 MG/2 ML Vial IV (21:22)
[2020-11-14 21:38] LABS: ALB/GLOB Ratio 1.1 RATIO (0.9-2.4); AST(SGOT) 28 U/L (15-37); Alanine Aminotransfer ALT/SGPT 43 U/L (13-56); Albumin, Serum 3.8 g/dL (3.2-5.0); Alkaline Phosphatase 80 U/L (45-117); Anion Gap 9 (5-15); BUN 29 mg/dL (7-18); BUN/Creat Ratio 28.4 RATIO (10-20); Calcium,Total 9.4 mg/dL (8.5-10.1); Chloride 102 mmol/L (98-107); Creatinine, Serum 1.02 mg/dL (0.55-1.02); EST Glomerular Filtration Rate 56 mL/min (>60); Est Glom Filt Rate - Afr Amer 67 mL/min (>60); Estimated Creatinine Clearance 38.62 ml/min; Globulin 3.4 g/dL (2.2-4.2); Glucose 113 mg/dL (74-106); Potassium 3.9 mmol/L (3.5-5.1); Protein, Total 7.2 g/dL (6.4-8.2); Sodium Level 139 mmol/L (136-145)
[2020-11-14 22:27] VITALS: BP 122/71; PULSE 67; RESP 13; O2SAT 99
== END 2020-11-14 22:28 | disposition home or self-care (01) ==
PROVIDERS: Emergency Provider Emergency Medicine; PCP Family Medicine
DX: A08.4 Viral intestinal infection, unspecified (principal); E86.0 Dehydration; E11.40 Type 2 diabetes mellitus with diabetic neuropathy, unspecified; I10 Essential (primary) hypertension; Z79.84 Long term (current) use of oral hypoglycemic drugs; Z79.899 Other long term (current) drug therapy
CPT/HCPCS: 80053; 85025; 96374; 99283; J7030; A4216; J2405

== ENCOUNTER → 2021-04-20 15:24 | Outpatient (CLI) | payer MEDICARE, OTHER, SELFPAY ==
--- NOTE | 2021-04-20 15:27 | MRI_ITS ---
STUDY: MRI BRAIN WITHOUT CONTRAST REASON FOR EXAM: Female, 81 years old. Dementia, UNSTEADY GAIT TECHNIQUE: Standardized multiplanar fat and water weighted pulse sequences were obtained. COMPARISON: None. FINDINGS: No evidence of restricted diffusion is seen. No evidence of parenchymal hemorrhages or contusions, no evidence of intra or extra-axial fluid collection is seen. Mild prominence of the ventricles and extra-axial spaces for the patient''s age. Subtle scattered areas of T2 prolongation visualized in the periventricular and subcortical white matter unremarkable for the patient''s age. Normal bilateral basal ganglia. Normal thalami. Normal sella turcica, pituitary gland, infundibular stalk, optic chiasm and hypothalamus. Normal tectal plate and pineal gland. Normal midbrain, carlene and medulla. Normal cerebellum. Normal basal cisterns. Normal bilateral temporal bones. Normal bilateral internal auditory canals. Normal flow voids within the major intracranial circulation suggesting patency by spin echo criteria. Mild circumferential periosteal disease visualized in the paranasal sinuses. Subtle T2 prolongation visualized in the right mastoid air cells. No demonstrated orbital abnormality, within the constraints of a routine brain study. Normal calvarium and skull base. Normal visualized soft tissue structures. Normal visualized upper cervical spine. MRI/Brain without Contrast IMPRESSION: No evidence of acute intracranial pathology is seen. Mild chronic atrophic brain changes and chronic microvascular disease unremarkable for the patient''s age. Electronically Signed: Archie Mancini MD at 8:24 EDT Tel , Service support ,
== END ==
PROVIDERS: PCP Family Medicine; Referring Provider Psychiatry & Neurology Neurology; Visit Provider Psychiatry & Neurology Neurology
DX: F03.90 Unspecified dementia, unspecified severity, without behavioral disturbance, psychotic disturbance, mood disturbance, and anxiety (principal)
CPT/HCPCS: 70551

== ENCOUNTER 2021-04-28 12:53 | Emergency (ER) | payer MEDICARE, OTHER, SELFPAY ==
[2021-04-28 12:54] VITALS: BP 115/64; PULSE 60; RESP 18; TEMP 36.7; O2SAT 96; BMI 24.4
--- NOTE | 2021-04-28 14:35 | EKG12_ITS ---
Test Reason : GENERAL ILLNESS Blood Pressure : / mmHG Vent. Rate : 055 BPM Atrial Rate : 055 BPM P-R Int : 162 ms QRS Dur : 088 ms QT Int : 454 ms P-R-T Axes : 034 -29 059 degrees QTc Int : 434 ms Sinus bradycardia Otherwise normal ECG Confirmed by HEMALATHA AREVALO, ELADIO ([id number]), editorial assistant ANGELA DAVIDSON ([id number]) on 05/02/2021 8:39:14 AM Referred By: SIMON Confirmed By:ELADIO PENNY MD
--- NOTE | 2021-04-28 14:35 | EX.ED.DYSGE1 ---
HPI History of Present Illness Chief Complaint: Nausea/Vomiting/Diarrhea Detail of Chief Complaint: Nausea, vomiting, and diarrhea Informant: patient Narrative Narrative: Patient presents to the emergency department stating that she has not been feeling well for the last 10 days. Patient initially was diagnosed with a UTI 10 days ago and started on Macrobid. Patient subsequently developed low-grade fever and vomiting and diarrhea. She has not vomited for several days and her last diarrheal episode was yesterday x2. Patient denies any abdominal pain. Patient has nausea and just has no appetite. Patient generally feels weak. She denies chest pain or shortness of breath. She had a mild cough. Patient has had both Covid vaccines. Patient denies recent travel. Prior similar symptoms: No PFSH PFS Medical History (Updated 04/28/21 @ 22:[address] Brittney Huston, ) Arthritis Carpal tunnel syndrome High cholesterol Hypertension Kidney stone on left side Liver lesion, right lobe Low back problem Multiple lung nodules Peripheral neuropathy Type II diabetes mellitus Home Medications Metformin [Metformin Hcl] 1,000 mg PO BID 02/14/14 [History Last Taken 04/05/18] atorvastatin 40 mg PO QHS 02/14/14 [History Last Taken 04/05/18 40 MG] gabapentin 300 mg PO QHS 02/14/14 [History Last Taken 04/04/18] tolterodine 2 mg PO QHS 02/14/14 [History Last Taken 04/04/18] Ranitidine [Zantac] 150 mg PO BID 04/05/18 [History Last Taken 04/05/18] amlodipine 5 mg PO DAILY 04/05/18 [History Last Taken 04/05/18] glimepiride 1 mg PO DAILY 04/05/18 [History Last Taken 04/05/18] hyoscyamine sulfate 0.125 mg PO Q12 PRN 04/05/18 [History Last Taken 04/05/18] irbesartan [Avapro] 300 mg PO QHS 04/05/18 [History Last Taken 04/06/18] meloxicam 15 mg PO DAILY 04/05/18 [History Last Taken 04/05/18] Januvia 100 mg PO DAILY 04/06/18 [History Last Taken 04/05/18] hydrochlorothiazide 25 mg PO DAILY 02/11/19 [History Last Taken Unknown] apremilast [Otezla] 30 mg PO BID 11/14/20 [History Last Taken Unknown] bupropion HCl 75 mg PO DAILY 11/14/20 [History Last Taken Unknown] magnesium 250 mg PO DAILY 11/14/20 [History Last Taken Unknown] ondansetron 8 mg PO Q8H PRN PRN #20 tab 11/14/20 [Rx Last Taken Unknown] donepezil 10 mg tablet 10 mg PO QHS #30 tab 04/10/21 [Rx Last Taken Unknown] donepezil 5 mg tablet 5 mg PO QHS #30 tab 04/10/21 [Rx Last Taken Unknown] fluoxetine 10 mg tablet 10 mg PO DAILY tab 04/10/21 [History Last Taken Unknown] valsartan 320 mg tablet 320 mg PO DAILY tab 04/10/21 [History Last Taken Unknown] Allergy/AdvReac Type Severity Reaction Status Date / Time acetaminophen [From Vicodin] Allergy Unknown Verified 04/28/21 12:54 codeine Allergy Anaphylaxis Verified 04/28/21 12:54 hydrocodone bitartrate Allergy Unknown Verified 04/28/21 12:54 [From Vicodin] zolpidem tartrate AdvReac Other Verified 04/28/21 12:54 [From Ambien] CRAB Allergy Swollen Uncoded 04/28/21 12:54 lymph glands Family History (Updated 04/10/21 @ 08:13 by Bee Cherry) Grandfather Parkinson disease Other CVA (cerebral vascular accident) Surgical History H/O: hysterectomy History of cholecystectomy Social History (Updated 04/10/21 @ 08:24 by Bee Cherry) Smoking Status: Never smoker how long ago did patient quit smoking: stoped in 1969 used when she was in her teens alcohol intake: never substance use type: does not use ROS ROS ED Constitutional Constitutional ED: Reports systems reviewed and no addt'l complaints, except as documented; Denies body ache(s), change in weight or chills Eyes Eyes: Denies acute decrease in peripheral vision, change in vision, double vision or loss of vision ENT ENT ED: Reports none; Denies ear pain, lip swelling, loss taste/smell, neck pain, otalgia or sore throat Cardiovascular Cardiovascular: Reports none; Denies abdominal pain, chest pain with activity, leg edema, lightheadedness, palpitations, rapid heart rate or syncope Respiratory/Chest Respiratory/Chest: Reports none; Denies change in mental status, dry cough, dyspnea, hemoptysis, shortness of breath at rest or shortness of breath with exertion Gastrointestinal Gastrointestinal: Reports none, diarrhea, nausea and vomiting; Denies abdominal pain, change in stool character, hematemesis, hematochezia, melena or rectal bleeding Genitourinary Genitourinary ED: Reports none; Denies abdominal discomfort, anuria, dysuria, genital pain or polyuria Musculoskeletal Musculoskeletal: Reports none; Denies arthralgias, back pain, difficulty walking, extremity pain, muscle weakness or myalgias Integumentary Reports none; Denies abscess or rash Neurologic Neurologic: Reports none and weakness; Denies abnormal gait, confusion, focal weakness, frequent falls, headache(s), loss of vision, numbness, paresthesias, radicular pain or vertigo Psychiatric Psychiatric: Reports systems reviewed and no addt'l complaints, except as documented and none; Denies behavioral changes, confusion, difficulty concentrating, hallucinations, suicidal ideation, tactile hallucinations or visual hallucinations Endocrine Endocrinology: Denies none, cold intolerance, excessive sweating, fatigue or heat intolerance Hematologic/Lymphatic Hematologic/Lymphatic: Reports none; Denies anemia, easy bleeding or easy bruising Allergic/Immunologic Allergic/Immunologic ED: Denies as per HPI, none, lip swelling, mouth swelling, throat swelling, tongue swelling or hives EXAM Physical Exam Const Vital Signs: 04/28/21 12:54 04/28/21 14:52 04/28/21 17:55 Temperature 98.1 F 98.7 F Temperature Source Temporal Oral Pulse Rate 60 55 L 54 L Respiratory Rate 18 18 18 Blood Pressure 115/64 141/52 H 147/62 H Blood Pressure Mean 81 81 90 Pulse Ox 96 98 96 Oxygen Delivery Method Room Air Room Air 04/28/21 22:10 Temperature Temperature Source Pulse Rate 48 L Respiratory Rate 18 Blood Pressure 132/81 H Blood Pressure Mean 98 Pulse Ox 98 Oxygen Delivery Method Room Air Positive well nourished and well developed General Appearance ED: well developed and NAD HEENT Reports TM's clear and moist mucous membranes normocephalic and atraumatic; Negative for trauma or tenderness Tympanic Membrane ED: Yes TM's clear Eyes PERRL and EOMs intact bilaterally General Eye ED: Negative for pale conjunctiva or scleral icterus Neck no lymphadenopathy, supple and no JVD General: Negative for tenderness Chest Wall inspection of chest normal and palpation of chest normal Chest: Negative for tenderness Resp normal respiratory effort and clear to auscultation bilaterally Effort and Inspection: Negative for respiratory distress or pain with movement Auscultation: Negative for rhonchi, wheezes or diminished lung sounds Cardio regular rate, regular rhythm, S1 normal heart sound, S2 normal heart sound and no murmurs Peripheral Pulses: pulses 2+ throughout GI normal to inspection, nondistended, normoactive bowel sounds, soft to palpation, non-tender, non-distended and no masses Back/Spine no CVA tenderness and no thoracic nor lumbar tenderness Extremity normal to inspection General Extremety ED: Negative for edema General Extremity: Negative for edema Neuro oriented x3, CN's II-XII intact bilaterally, no sensory deficits noted and gait normal Sensorium / Orientation: awake, alert, oriented to person, oriented to place and oriented to time Motor Exam: strength 5/5 throughout and strength abnormal Psych mental status grossly normal Skin no rashes or lesions noted and no wounds MDM MDM MDM Narrative Medical decision making narrative: IV line established on arrival. Patient was given Zofran 4 mg IV. She was given normal saline. Patient was found to have elevated liver enzymes therefore a CT scan of the abdomen pelvis was obtained which was essentially unremarkable. Patient also had an ultrasound of the right upper quadrant at the request of GI which also was essentially unremarkable. Patient was evaluated by Dr. Rich in the emergency department given the elevated liver enzymes. 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 I was asked to repeat patient's liver enzymes and if trending down to discharge patient home to follow-up with GI as an outpatient. I did send off enteric pathogens and those results will be pending. Patient was feeling significantly improved in department. I suspect etiology of her symptoms likely viral. Patient will be given referral to urology for follow-up regarding the abnormal finding on CT of a possible mass in her bladder. Lab Data Attestation: I reviewed the patient's lab results. Labs: Laboratory Results - last 24 hr 04/28/21 04/28/21 04/28/21 13:10 13:10 13:10 WBC 6.2 RBC 5.16 Hgb 13.8 Hct 41.8 MCV 81.0 MCH 26.7 L MCHC 33.0 RDW Std Deviation 39.3 RDW Coeff of Finesse 13.2 Plt Count 166 MPV 12.9 H Immature Gran % (Auto) 1.000 H Neut % (Auto) 54.5 Lymph % (Auto) 30.4 [place] % (Auto) 11.2 H Eos % (Auto) 2.6 Baso % (Auto) 0.3 Absolute Neuts (auto) 3.4 Absolute Lymphs (auto) 1.87 Nucleated RBC % 0 Sodium 136 Potassium 3.6 Chloride 103 Carbon Dioxide 27.0 Anion Gap 6 BUN 20 H Creatinine 0.98 Estim Creat Clear Calc 37.87 Est GFR (MDRD) Af Amer 70 Est GFR (MDRD) Non-Af 58 L BUN/Creatinine Ratio 20.4 H Glucose 187 H Lactic Acid 1.6 Calcium 9.9 Total Bilirubin 1.50 H Direct Bilirubin AST 191 H ALT 694 H Alkaline Phosphatase 188 H Troponin I High Sens 10 Total Protein 7.3 Albumin 3.3 Globulin 4.0 Albumin/Globulin Ratio 0.8 L Lipase 485 H Urine Color Urine Clarity Urine pH Ur [place] Urine Protein Urine Glucose (UA) Urine Ketones Urine Occult Blood Urine Nitrite Urine Bilirubin Urine Urobilinogen Ur Leukocyte Esterase Urine RBC Urine WBC Ur Squamous Epith Cells Ur Renal Epithelial Cell Urine Bacteria Urine Mucus COVID-19 (YENIFER) 04/28/21 04/28/21 04/28/21 14:30 15:25 22:16 WBC RBC Hgb Hct MCV MCH MCHC RDW Std Deviation RDW Coeff of Finesse Plt Count MPV Immature Gran % (Auto) Neut % (Auto) Lymph % (Auto) [place] % (Auto) Eos % (Auto) Baso % (Auto) Absolute Neuts (auto) Absolute Lymphs (auto) Nucleated RBC % Sodium Potassium Chloride Carbon Dioxide Anion Gap BUN Creatinine Estim Creat Clear Calc Est GFR (MDRD) Af Amer Est GFR (MDRD) Non-Af BUN/Creatinine Ratio Glucose Lactic Acid Calcium Total Bilirubin 1.50 H Direct Bilirubin 0.40 H AST 145 H ALT 561 H Alkaline Phosphatase 167 H Troponin I High Sens Total Protein 6.7 Albumin 3.1 L Globulin 3.6 Albumin/Globulin Ratio Lipase Urine Color Yellow Urine Clarity Sl Cldy Urine pH 7.0 Ur Specific [place] 1.010 Urine Protein 15 H Urine Glucose (UA) 100 H Urine Ketones Negative Urine Occult Blood 25 H Urine Nitrite Negative Urine Bilirubin Negative Urine Urobilinogen Normal Ur Leukocyte Esterase Negative Urine RBC 0-5 SEEN Urine WBC 0-5 SEEN Ur Squamous Epith Cells 0 SEEN Ur Renal Epithelial Cell 0-5 SEEN Urine Bacteria 0 SEEN Urine Mucus 0 SEEN COVID-19 (YENIFER) Not Detected Radiography Diagnostic Testing: Clinical Impression(s) from Imaging Studies Abdomen/Pelvis CT 04/28/21 17:04 IMPRESSION: 1. No acute abnormality. 2. Unremarkable noncontrast liver with previously imaged hemangioma. 3. Possible lesion/mass in the urinary bladder. Either dedicated bladder imaging or cystoscopy is advised for evaluation. Electronically Signed: Shellie Painting MD at 18:13 EDT Tel , Service support , Gallbladder Ultrasound 04/28/21 19:19 IMPRESSION: Right hepatic irregular 2.8 cm echogenic lesion compatible with hemangioma characterized on MRI. Prior cholecystectomy. Heterogeneous echogenic pancreatic parenchyma is nonspecific and can be normal for patient. Pancreatitis can look similar in the appropriate setting. at 2200 Reported and signed by: José Kumar MD Electronically Signed: José Kumar MD at 21:58 EDT Tel , Service support , EKG Initial EKG: Attestation: I personally reviewed and interpreted this EKG as follows: Comments: Sinus rhythm with a ventricular rate of 55 bpm with no acute ST segment changes Discharge Plan Triage Chief Complaint: Nausea/Vomiting/Diarrhea ED Provider: Brittney Huston Dx/Rx/DC Orders Clinical Impression: Gastroenteritis, Elevated liver enzymes, Bladder mass Instructions: ED Gastroenteritis, Viral (Adult) Prescriptions: No Action valsartan 320 mg tablet 320 mg PO DAILY RF: 0 donepezil 5 mg tablet 5 mg PO QHS Qty: 30 RF: 0 donepezil 10 mg tablet 10 mg PO QHS Qty: 30 RF: 2 tolterodine 2 MG capsule,extended release 24hr 2 mg PO QHS RF: 0 atorvastatin 40 MG tablet 40 mg PO QHS RF: 0 gabapentin 300 MG capsule 300 mg PO QHS RF: 0 Metformin [Metformin Hcl] 1,000 MG tablet 1,000 mg PO BID RF: 0 amlodipine 5 MG tablet 5 mg PO DAILY RF: 0 glimepiride 1 MG tablet 1 mg PO DAILY RF: 0 meloxicam 7.5 MG tablet 15 mg PO DAILY RF: 0 hyoscyamine sulfate 0.375 MG tablet 0.125 mg PO Q12 PRN (Reason: esophageal spasms) RF: 0 irbesartan [Avapro] 300 MG tablet 300 mg PO QHS RF: 0 Ranitidine [Zantac] 150 MG tablet 150 mg PO BID RF: 0 Januvia 100 MG tablet 100 mg PO DAILY RF: 0 hydrochlorothiazide 25 MG tablet 25 mg PO DAILY RF: 0 bupropion HCl 75 mg tablet 75 mg PO DAILY RF: 0 magnesium 250 mg Tablet 250 mg PO DAILY RF: 0 Otezla 30 mg tablet 30 mg PO BID RF: 0 ondansetron 4 mg tablet,disintegrating 8 mg PO Q8H PRN PRN (Reason: Nausea) Qty: 20 RF: 0 fluoxetine 10 mg tablet 10 mg PO DAILY RF: 0 Primary Care Provider: Dhiraj Julian Referrals: oRse Cooper MD [STAFF PHYSICIAN] - 3-5 Days Antonio Rich DO [STAFF PHYSICIAN] - 2 Days Dhiraj Julian MD [Primary Care Provider] - Activity Restrictions/Additional Instructions: Up with Dr. Rich regarding the elevated liver enzymes. Follow-up with urology regarding the mass found in the bladder to evaluate further and rule out malignancy. Disposition Disposition: Home, Self Care
[2021-04-28] MEDS: 0.9% Normal Saline 1,000 ML 1000 ML IV (14:48)
[2021-04-28] MEDS: Ondansetron 4 MG/2 ML Vial IV (14:49)
[2021-04-28 14:52] VITALS: BP 141/52; PULSE 55; RESP 18; TEMP 37.1; O2SAT 98
[2021-04-28 14:57] LABS: Bacteria 0 SEEN /hpf (None Seen); Mucous, Urine 0 SEEN /hpf (<or=2+); Squamous Epithelial Cells - UA 0 SEEN /hpf (5-10)
[2021-04-28 14:58] LABS: Glucose, Dipstick 100 mg/dl (Normal); Ketone-Dipstick Negative (Negative); Leukocyte Esterase-Dipstick Negative /ul (Negative); Nitrite-Dipstick Negative (Negative); Occult Blood-Urine 25 /ul (Negative); Protein-Dipstick 15 mg/dl (Negative); Urine Bilirubin Dipstick Negative (Negative); Urine Urobilinogen Normal (Normal)
[2021-04-28 15:05] LABS: Absolute Lymphocyte Count 1.87 X10^3/uL (0.83-4.51); Absolute Neutrophil Count 3.4 X10^3/uL (2.0-7.7); Basophil# 0.02 X10^3/uL; Basophil% 0.3 % (0-1); Eosinophil# 0.16 X10^3/uL; Eosinophils% 2.6 % (0-5); Hematocrit 41.8 % (37-47); Hemoglobin 13.8 g/dL (12.0-15.0); Lymphocyte # 1.87 X10^3/ul (0.83-4.51); Lymphocyte % 30.4 % (19-41); Mean Corpuscular Hgb 26.7 pg (27.0-32.0); Mean Platelet Vol. 12.9 fl (6.2-12.0); Monocyte# 0.69 X10^3/uL; Monocyte% 11.2 % (0-10); NRBC Flagged by Analyzer 0 % (0-5); Neutrophil # 3.36 X10^3/uL (2.7-7.7); Neutrophil % 54.5 % (47-70); Platelet Count 166 K/mm3 (150-450); RBC Distribution Width CV 13.2 % (11.6-14.6); RBC Distribution Width SD 39.3 fl (35.1-43.9); Red Blood Count 5.16 M/mm3 (4.2-5.4); White Blood Count 6.2 K/mm3 (4.4-11.0)
[2021-04-28 15:17] LABS: Lactic Acid 1.6 mmol/L (0.4-1.9)
[2021-04-28 15:20] LABS: ALB/GLOB Ratio 0.8 RATIO (0.9-2.4); AST(SGOT) 191 U/L (15-37); Alanine Aminotransfer ALT/SGPT 694 U/L (13-56); Albumin, Serum 3.3 g/dL (3.2-5.0); Alkaline Phosphatase 188 U/L (45-117); Anion Gap 6 (5-15); BUN 20 mg/dL (7-18); BUN/Creat Ratio 20.4 RATIO (10-20); Calcium,Total 9.9 mg/dL (8.5-10.1); Chloride 103 mmol/L (98-107); Creatinine, Serum 0.98 mg/dL (0.55-1.02); EST Glomerular Filtration Rate 58 mL/min (>60); Est Glom Filt Rate - Afr Amer 70 mL/min (>60); Estimated Creatinine Clearance 37.87 ml/min; Glucose 187 mg/dL (74-106); Lipase 485 U/L (73-393); Potassium 3.6 mmol/L (3.5-5.1); Protein, Total 7.3 g/dL (6.4-8.2); Sodium Level 136 mmol/L (136-145); Troponin-I HS 10 pg/mL (3.0-54.0)
[2021-04-28 15:20] LABS: Color, Urine Yellow (Yellow); Urine Clarity Sl Cldy (Clear)
[2021-04-28 15:41] LABS: Red Blood Cells-Urine 0-5 SEEN /hpf (0-5); Renal Epithelial Cells 0-5 SEEN /hpf (0-5); White Blood Cells 0-5 SEEN /hpf (0-5)
--- NOTE | 2021-04-28 17:04 | CT_ITS ---
STUDY: CT ABDOMEN AND PELVIS WITHOUT CONTRAST REASON FOR EXAM: Female, 81 years old. Abdominal pain and elevated liver enzymes RADIATION DOSAGE (If Supplied By Facility): CTDIvol = ( 6.41 ) mGy, DLP = ( 302.52 ) mGycm TECHNIQUE: Transaxial images were obtained from the dome of the diaphragm to the symphysis pubis without oral contrast, and without intravenous contrast. Sagittal and coronal images were reconstructed. Individualized dose optimization techniques were used for this CT. COMPARISON: 14 February 2014, 15 February 2014 FINDINGS: Examination is technically limited due to lack of IV contrast. Evaluation of hepatic parenchyma is limited. Diagnostic information is available. There are benign calcified granulomata in the lower lungs stable since 2013 and not requiring any further evaluation.. The visualized portions of the heart are within normal limits. There is an ill-defined hypodensity in segment 7 previously diagnosed as hemangioma on MR in 2013 and appearing stable. Gallbladder is removed.. Normal spleen. Normal pancreas. Normal bilateral adrenal glands. Normal right kidney. Normal left kidney. Normal visualized stomach. Normal small intestine. Normal colon. The appendix is visualized and appears normal. Normal abdominal aorta. Normal inferior vena cava. Normal retroperitoneum. There is possible lesion or debris or hematoma in the urinary bladder. This is poorly evaluated. Uterus is removed. Normal abdominal wall. Normal osseous structures. Thecal sac is surgically decompressed at L3-L4 and L4-L5 with laminectomies. CT/Abdomen/Pelvis without Cont IMPRESSION: 1. No acute abnormality. 2. Unremarkable noncontrast liver with previously imaged hemangioma. 3. Possible lesion/mass in the urinary bladder. Either dedicated bladder imaging or cystoscopy is advised for evaluation. Electronically Signed: Shellie Painting MD at 18:13 EDT Tel , Service support ,
[2021-04-28 17:55] VITALS: BP 147/62; PULSE 54; RESP 18; O2SAT 96
--- NOTE | 2021-04-28 19:19 | US_ITS ---
HISTORY: elevated liver enzymes EXAMINATION: US Abdomen RUQ (limited) TECHNIQUE: Reyna scale and color doppler imaging was performed of the right upper quadrant. COMPARISON: CT abdomen and pelvis April 28, 2021. CT chest angiogram February 14, 2014. MRI abdomen February 15, 2014 FINDINGS: Pancreas: Heterogeneous, mildly echogenic parenchyma without gross ductal ectasia. No visualized peripancreatic fluid collection. Pancreatic tail is incompletely seen. Liver: 16.2 cm. Normal general echogenicity. Irregular right hepatic 2.8 cm echogenic lesion. No visualized parenchymal mass or intrahepatic biliary ductal dilatation. Hepatopedal portal flow is preserved. Right kidney: 10.0 cm in length with normal cortical echogenicity. No hydronephrosis, solid renal mass, or shadowing nephrolithiasis. No renal cyst seen. No focal cortical thinning or scarring. Color vascular flow is preserved. Gallbladder: Surgically absent. Common duct measures 6 mm. US/Gallbladder IMPRESSION: Right hepatic irregular 2.8 cm echogenic lesion compatible with hemangioma characterized on MRI. Prior cholecystectomy. Heterogeneous echogenic pancreatic parenchyma is nonspecific and can be normal for patient. Pancreatitis can look similar in the appropriate setting. at 2200 Reported and signed by: José Kumar MD Electronically Signed: José Kumar MD at 21:58 EDT Tel , Service support ,
[2021-04-28 22:10] VITALS: BP 132/81; PULSE 48; RESP 18; O2SAT 98
[2021-04-28 22:39] LABS: AST(SGOT) 145 U/L (15-37); Alanine Aminotransfer ALT/SGPT 561 U/L (13-56); Albumin, Serum 3.1 g/dL (3.2-5.0); Alkaline Phosphatase 167 U/L (45-117); Globulin 3.6 g/dL (2.2-4.2); Protein, Total 6.7 g/dL (6.4-8.2)
[2021-04-28 23:17] VITALS: RESP 16
== END 2021-04-28 23:18 | disposition home or self-care (01) ==
PROVIDERS: Emergency Provider Emergency Medicine; PCP Family Medicine
DX: K52.9 Noninfective gastroenteritis and colitis, unspecified (principal); Z87.440 Personal history of urinary (tract) infections
CPT/HCPCS: 74176; 76705; 80053; 80076; 81001; 83605; 83690; 84484; 85025; 87506; 87635; 93005; 96361; 96374; 99283; J7030; U0005; A4216; J2405; U0003

== ENCOUNTER → 2021-05-01 10:55 | Outpatient (CLI) | payer MEDICARE, OTHER, SELFPAY ==
[2021-05-01 11:59] LABS: Absolute Lymphocyte Count 2.65 X10^3/uL (0.83-4.51); Absolute Neutrophil Count 4.3 X10^3/uL (2.0-7.7); Basophil# 0.03 X10^3/uL; Basophil% 0.4 % (0-1); Eosinophil# 0.06 X10^3/uL; Eosinophils% 0.8 % (0-5); Hematocrit 42.7 % (37-47); Hemoglobin 13.6 g/dL (12.0-15.0); International Normalized Ratio 1.1; Lymphocyte # 2.65 X10^3/ul (0.83-4.51); Lymphocyte % 33.8 % (19-41); Mean Corp Hgb Conc 31.9 g/dL (32-36); Mean Corpuscular Hgb 26.3 pg (27.0-32.0); Mean Corpuscular Volume 82.6 fL (81-99); Mean Platelet Vol. 12.6 fl (6.2-12.0); Monocyte# 0.75 X10^3/uL; Monocyte% 9.6 % (0-10); NRBC Flagged by Analyzer 0 % (0-5); Neutrophil # 4.32 X10^3/uL (2.7-7.7); Neutrophil % 54.9 % (47-70); Platelet Count 221 K/mm3 (150-450); Prothrombin Time (Protime)PT. 13.3 SECONDS (11.7-14.9); RBC Distribution Width CV 13.3 % (11.6-14.6); RBC Distribution Width SD 40.1 fl (35.1-43.9); Red Blood Count 5.17 M/mm3 (4.2-5.4); White Blood Count 7.9 K/mm3 (4.4-11.0)
[2021-05-01 12:18] LABS: ALB/GLOB Ratio 0.9 RATIO (0.9-2.4); AST(SGOT) 80 U/L (15-37); Alanine Aminotransfer ALT/SGPT 329 U/L (13-56); Albumin, Serum 3.4 g/dL (3.2-5.0); Alkaline Phosphatase 154 U/L (45-117); Anion Gap 8 (5-15); BUN 16 mg/dL (7-18); BUN/Creat Ratio 19.4 RATIO (10-20); Calcium,Total 9.4 mg/dL (8.5-10.1); Chloride 101 mmol/L (98-107); Creatinine, Serum 0.82 mg/dL (0.55-1.02); EST Glomerular Filtration Rate 71 mL/min (>60); Est Glom Filt Rate - Afr Amer 86 mL/min (>60); Globulin 3.9 g/dL (2.2-4.2); Glucose 158 mg/dL (74-106); Potassium 3.6 mmol/L (3.5-5.1); Protein, Total 7.3 g/dL (6.4-8.2); Sodium Level 136 mmol/L (136-145)
[2021-05-02 11:50] LABS: AFP, Tumor Marker 1.6 ng/mL (0.0-8.3)
== END ==
PROVIDERS: PCP Family Medicine; Referring Provider Internal Medicine Gastroenterology; Visit Provider Internal Medicine Gastroenterology
DX: Z00.00 Encounter for general adult medical examination without abnormal findings (principal); R74.8 Abnormal levels of other serum enzymes; Z51.89 Encounter for other specified aftercare; K74.60 Unspecified cirrhosis of liver
CPT/HCPCS: 36415; 80053; 82105; 85025; 85610

== ENCOUNTER 2021-05-02 08:28 | Observation (INO) | payer MEDICARE, OTHER, SELFPAY ==
[2021-05-02 08:29] VITALS: BP 126/59; PULSE 51; RESP 18; TEMP 36.1; O2SAT 100; BMI 23.0
--- NOTE | 2021-05-02 09:01 | EKG12_ITS ---
Test Reason : Blood Pressure : / mmHG Vent. Rate : 048 BPM Atrial Rate : 048 BPM P-R Int : 186 ms QRS Dur : 088 ms QT Int : 444 ms P-R-T Axes : 023 -19 060 degrees QTc Int : 396 ms Sinus bradycardia with sinus arrhythmia Otherwise normal ECG Confirmed by HEMALATHA AREVALO, ELADIO ([id number]), editor producer ANGELA DAVIDSON ([id number]) on 05/03/2021 9:27:57 AM Referred By: DIRK Confirmed By:ELADIO PENNY MD
[2021-05-02 09:24] LABS: Absolute Lymphocyte Count 1.48 X10^3/uL (0.83-4.51); Absolute Neutrophil Count 4.2 X10^3/uL (2.0-7.7); Basophil# 0.01 X10^3/uL; Basophil% 0.2 % (0-1); Eosinophil# 0.15 X10^3/uL; Eosinophils% 2.3 % (0-5); Hematocrit 40.7 % (37-47); Hemoglobin 12.9 g/dL (12.0-15.0); Lymphocyte # 1.48 X10^3/ul (0.83-4.51); Lymphocyte % 22.4 % (19-41); Mean Corp Hgb Conc 31.7 g/dL (32-36); Mean Corpuscular Hgb 26.3 pg (27.0-32.0); Mean Corpuscular Volume 82.9 fL (81-99); Mean Platelet Vol. 12.2 fl (6.2-12.0); Monocyte# 0.71 X10^3/uL; Monocyte% 10.8 % (0-10); NRBC Flagged by Analyzer 0 % (0-5); Neutrophil % 63.5 % (47-70); Platelet Count 175 K/mm3 (150-450); RBC Distribution Width CV 13.5 % (11.6-14.6); RBC Distribution Width SD 40.8 fl (35.1-43.9); Red Blood Count 4.91 M/mm3 (4.2-5.4); White Blood Count 6.6 K/mm3 (4.4-11.0)
--- NOTE | 2021-05-02 09:40 | EDS_ITS ---
HPI HPI - GI History of Present Illness Chief Complaint: Abd Pain Informant: patient and family Narrative Narrative: Patient returns with some continuing abdominal pain. She has continuing nausea despite some Zofran. She has had dry heaves but not actual vomiting in the last couple days. She has been having a little trouble getting her meds but is taking them. She has overall malaise. She is not having coughing URIs or myalgias symptoms though. She was just here about 4 days ago for this. She wanted to go home because she was feeling much better after she was seen in the emergency department. She is following up with Dr. Rich. They called again today and were referred in here for further evaluation as her symptoms are not improving. The initial start of these was with nausea vomiting diarrhea almost 2 weeks ago now. No known inciting events. She is also now on antibiotics for possible UTI and is having some urinary symptoms. Her recent CT showed a possible urinary bladder mass. [facility] Medical History Arthritis Carpal tunnel syndrome High cholesterol Hypertension Kidney stone on left side Liver lesion, right lobe Low back problem Multiple lung nodules Peripheral neuropathy Type II diabetes mellitus Home Medications Metformin [Metformin Hcl] 1,000 mg PO BID 02/14/14 [History Last Taken 04/05/18] atorvastatin 40 mg PO QHS 02/14/14 [History Last Taken 04/05/18 40 MG] gabapentin 300 mg PO QHS 02/14/14 [History Last Taken 04/04/18] tolterodine 2 mg PO QHS 02/14/14 [History Last Taken 04/04/18] Ranitidine [Zantac] 150 mg PO BID 04/05/18 [History Last Taken 04/05/18] amlodipine 5 mg PO DAILY 04/05/18 [History Last Taken 04/05/18] glimepiride 1 mg PO DAILY 04/05/18 [History Last Taken 04/05/18] hyoscyamine sulfate 0.125 mg PO Q12 PRN 04/05/18 [History Last Taken 04/05/18] irbesartan [Avapro] 300 mg PO QHS 04/05/18 [History Last Taken 04/06/18] Januvia 100 mg PO DAILY 04/06/18 [History Last Taken 04/05/18] hydrochlorothiazide 25 mg PO DAILY 02/11/19 [History Last Taken Unknown] apremilast [Otezla] 30 mg PO BID 11/14/20 [History Last Taken Unknown] bupropion HCl 75 mg PO DAILY 11/14/20 [History Last Taken Unknown] magnesium 250 mg PO DAILY 11/14/20 [History Last Taken Unknown] ondansetron 8 mg PO Q8H PRN PRN #20 tab 11/14/20 [Rx Last Taken Unknown] donepezil 10 mg tablet 10 mg PO QHS #30 tab 04/10/21 [Rx Last Taken Unknown] donepezil 5 mg tablet 5 mg PO QHS #30 tab 04/10/21 [Rx Last Taken Unknown] fluoxetine 10 mg tablet 10 mg PO DAILY tab 04/10/21 [History Last Taken Unknown] valsartan 320 mg tablet 320 mg PO DAILY tab 04/10/21 [History Last Taken Unknown] Allergy/AdvReac Type Severity Reaction Status Date / Time acetaminophen [From Vicodin] Allergy Unknown Verified 05/02/21 08:28 codeine Allergy Anaphylaxis Verified 05/02/21 08:28 hydrocodone bitartrate Allergy Unknown Verified 05/02/21 08:28 [From Vicodin] zolpidem tartrate AdvReac Other Verified 05/02/21 08:28 [From Ambien] CRAB Allergy Swollen Uncoded 05/02/21 08:28 lymph glands Family History Grandfather Parkinson disease Other CVA (cerebral vascular accident) Surgical History H/O: hysterectomy History of cholecystectomy Social History Smoking Status: Never smoker how long ago did patient quit smoking: stoped in 1970 used when she was in her teens alcohol intake: never substance use type: does not use ROS ROS ED Constitutional Constitutional ED: Denies chills or fever(s) ENT ENT ED: Denies rhinorrhea or sore throat Cardiovascular Cardiovascular: Denies chest pain or palpitations Respiratory/Chest Respiratory/Chest: Denies cough or dyspnea Gastrointestinal Gastrointestinal: Reports abdominal pain, diarrhea, nausea and vomiting; Denies constipation or melena Genitourinary Genitourinary ED: Reports dysuria Musculoskeletal Musculoskeletal: Reports other Details: Patient has chronic longstanding back pain but no change in quality or quantity of pain. Integumentary Denies rash Neurologic Neurologic: Denies headache(s), paresthesias or weakness Endocrine Endocrinology: Denies polydipsia or polyuria Hematologic/Lymphatic Hematologic/Lymphatic: Denies easy bruising Allergic/Immunologic Allergic/Immunologic ED: Denies mouth swelling, tongue swelling or urticaria EXAM Physical Exam Const Vital Signs: 05/02/21 08:29 05/02/21 12:43 Temperature 97 F L Temperature Source Temporal Pulse Rate 51 L 49 L Respiratory Rate 18 16 Blood Pressure 126/59 H 145/60 H Blood Pressure Mean 81 88 Pulse Ox 100 99 Oxygen Delivery Method Room Air Room Air Positive well nourished and well developed General Appearance ED: well developed and NAD HEENT Reports dry mucous membranes Mouth ED: Yes dry mucous membranes Mouth: dry mucous membranes Eyes Eyes Narrative: Possible very minimal icterus. General Eye ED: Negative for pale conjunctiva Neck no JVD Resp normal respiratory effort and clear to auscultation bilaterally Auscultation: Negative for rales, rhonchi or wheezes Cardio regular rate, regular rhythm and no murmurs GI non-distended and no masses GI Narrative: Patient does have some mild tenderness toward the right upper quadrant. No rebound or guarding. Abdomen is not distended. Bowel sounds do sound normal. Auscultation: normoactive bowel sounds Palpation: soft and tender Back/Spine no CVA tenderness Extremity full ROM General Extremety ED: Negative for edema or tenderness General Extremity: Negative for edema Neuro Sensorium / Orientation: alert, oriented to person, oriented to place and oriented to time Psych mental status grossly normal Skin Lesions: no lesions Rashes: no rashes MDM MDM MDM Narrative Medical decision making narrative: Patient's liver function tests are decreasing but still elevated. However, her lipase is increasing. CBC is normal. Lactate is negative. CAT scan shows continued area in the bladder. However CAT scan does not show definitive signs of pancreatitis. Urine has 10-25 white cells. I got more information from patient. She states she was placed on antibiotics for urine infection 10 or 12 days ago. It sounds like it was nitrofurantoin. Because of her nausea vomiting there is been many days she could not take it. However, all her symptoms started long before this by at least 4 or so days. She is no longer running on the antibiotics. With her continual symptoms, still elevated LFTs, I did discuss the case with Dr. Rich. He is very familiar with this patient. His concern is also that there is diverticula near the area of the head of the pancreas. He would like to bring her in for controlling of her nausea and vomiting, hydration and obtaining MRCP. I have hospitalist on page. Lab Data Attestation: I reviewed the patient's lab results. Labs: Laboratory Results - last 24 hr 05/02/21 05/02/21 05/02/21 09:15 09:15 09:15 WBC 6.6 RBC 4.91 Hgb 12.9 Hct 40.7 MCV 82.9 MCH 26.3 L MCHC 31.7 L RDW Std Deviation 40.8 RDW Coeff of Finesse 13.5 Plt Count 175 MPV 12.2 H Immature Gran % (Auto) 0.800 Neut % (Auto) 63.5 Lymph % (Auto) 22.4 [place] % (Auto) 10.8 H Eos % (Auto) 2.3 Baso % (Auto) 0.2 Absolute Neuts (auto) 4.2 Absolute Lymphs (auto) 1.48 Nucleated RBC % 0 Sodium 139 Potassium 3.5 Chloride 100 Carbon Dioxide 28.0 Anion Gap 11 BUN 20 H Creatinine 1.22 H Estim Creat Clear Calc 30.42 Est GFR (MDRD) Af Amer 55 L Est GFR (MDRD) Non-Af 45 L BUN/Creatinine Ratio 16.4 Glucose 151 H Lactic Acid 1.7 Calcium 9.1 Total Bilirubin 1.60 H AST 41 H ALT 233 H Alkaline Phosphatase 135 H Troponin I High Sens 10 Total Protein 6.9 Albumin 3.1 L Globulin 3.8 Albumin/Globulin Ratio 0.8 L Lipase 594 H Urine Color Urine Clarity Urine pH Ur Specific [place] Urine Protein Urine Glucose (UA) Urine Ketones Urine Occult Blood Urine Nitrite Urine Bilirubin Urine Urobilinogen Ur Leukocyte Esterase Urine RBC Urine WBC Ur Squamous Epith Cells Ur Renal Epithelial Cell Urine Bacteria Hyaline Casts Urine Mucus 05/02/21 10:35 WBC RBC Hgb Hct MCV MCH MCHC RDW Std Deviation RDW Coeff of [place] Plt Count MPV Immature Gran % (Auto) Neut % (Auto) Lymph % (Auto) [place] % (Auto) Eos % (Auto) Baso % (Auto) Absolute Neuts (auto) Absolute Lymphs (auto) Nucleated RBC % Sodium Potassium Chloride Carbon Dioxide Anion Gap BUN Creatinine Estim Creat Clear Calc Est GFR (MDRD) Af Amer Est GFR (MDRD) Non-Af BUN/Creatinine Ratio Glucose Lactic Acid Calcium Total Bilirubin AST ALT Alkaline Phosphatase Troponin I High Sens Total Protein Albumin Globulin Albumin/Globulin Ratio Lipase Urine Color Yellow Urine Clarity Sl. Cloudy Urine pH 6.5 Ur Specific [place] 1.010 Urine Protein 30 H Urine Glucose (UA) Normal Urine Ketones 15 H Urine Occult Blood 250 H Urine Nitrite Negative Urine Bilirubin Negative Urine Urobilinogen Normal Ur Leukocyte Esterase 100 H Urine RBC 10-25 SEEN Urine WBC 10-25 SEEN Ur Squamous Epith Cells 0-5 SEEN Ur Renal Epithelial Cell 0-5 SEEN Urine Bacteria 2+ Hyaline Casts 0-5 SEEN Urine Mucus 2+ Radiography Diagnostic Testing: Clinical Impression(s) from Imaging Studies Abdomen/Pelvis CT 05/02/21 11:40 IMPRESSION: Stable 1.2 cm x 2.4 cm linear hypodensity in the posterior aspect of the right lobe of liver. This most likely represents a small hemangioma. 3.9 sign by 2.2 cm mass at the base of the bladder on the right side. A neoplastic process should be ruled out. Electronically Signed: Ben Mathew MD at 12:16 EDT , Service support , Discharge Plan Triage Chief Complaint: Abd Pain ED Provider: Jesus Hilario Dx/Rx/DC Orders Clinical Impression: Elevated liver enzymes, Intractable nausea and vomiting, Elevated lipase Prescriptions: No Action valsartan 320 mg tablet 320 mg PO DAILY RF: 0 donepezil 5 mg tablet 5 mg PO QHS Qty: 30 RF: 0 donepezil 10 mg tablet 10 mg PO QHS Qty: 30 RF: 2 tolterodine 2 MG capsule,extended release 24hr 2 mg PO QHS RF: 0 atorvastatin 40 MG tablet 40 mg PO QHS RF: 0 gabapentin 300 MG capsule 300 mg PO QHS RF: 0 Metformin [Metformin Hcl] 1,000 MG tablet 1,000 mg PO BID RF: 0 amlodipine 5 MG tablet 5 mg PO DAILY RF: 0 glimepiride 1 MG tablet 1 mg PO DAILY RF: 0 hyoscyamine sulfate 0.375 MG tablet 0.125 mg PO Q12 PRN (Reason: esophageal spasms) RF: 0 irbesartan [Avapro] 300 MG tablet 300 mg PO QHS RF: 0 Ranitidine [Zantac] 150 MG tablet 150 mg PO BID RF: 0 Januvia 100 MG tablet 100 mg PO DAILY RF: 0 hydrochlorothiazide 25 MG tablet 25 mg PO DAILY RF: 0 bupropion HCl 75 mg tablet 75 mg PO DAILY RF: 0 magnesium 250 mg Tablet 250 mg PO DAILY RF: 0 Otezla 30 mg tablet 30 mg PO BID RF: 0 ondansetron 4 mg tablet,disintegrating 8 mg PO Q8H PRN PRN (Reason: Nausea) Qty: 20 RF: 0 fluoxetine 10 mg tablet 10 mg PO DAILY RF: 0 Primary Care Provider: Dhiraj Julian Referrals: Dhiraj Julian MD [Primary Care Provider] - Disposition Disposition: Acute Care [facility]
[2021-05-02] MEDS: Ondansetron 4 MG/2 ML Vial IV (09:42)
[2021-05-02 09:56] LABS: Lactic Acid 1.7 mmol/L (0.4-1.9)
[2021-05-02 10:02] LABS: ALB/GLOB Ratio 0.8 RATIO (0.9-2.4); AST(SGOT) 41 U/L (15-37); Alanine Aminotransfer ALT/SGPT 233 U/L (13-56); Albumin, Serum 3.1 g/dL (3.2-5.0); Alkaline Phosphatase 135 U/L (45-117); Anion Gap 11 (5-15); BUN 20 mg/dL (7-18); BUN/Creat Ratio 16.4 RATIO (10-20); Calcium,Total 9.1 mg/dL (8.5-10.1); Chloride 100 mmol/L (98-107); Creatinine, Serum 1.22 mg/dL (0.55-1.02); EST Glomerular Filtration Rate 45 mL/min (>60); Est Glom Filt Rate - Afr Amer 55 mL/min (>60); Estimated Creatinine Clearance 30.42 ml/min; Globulin 3.8 g/dL (2.2-4.2); Glucose 151 mg/dL (74-106); Lipase 594 U/L (73-393); Potassium 3.5 mmol/L (3.5-5.1); Protein, Total 6.9 g/dL (6.4-8.2); Sodium Level 139 mmol/L (136-145); Troponin-I HS 10 pg/mL (3.0-54.0)
[2021-05-02 10:52] LABS: Color, Urine Yellow (Yellow); Glucose, Dipstick Normal (Normal); Ketone-Dipstick 15 mg/dl (Negative); Leukocyte Esterase-Dipstick 100 /ul (Negative); Nitrite-Dipstick Negative (Negative); Occult Blood-Urine 250 /ul (Negative); Protein-Dipstick 30 mg/dl (Negative); Urine Bilirubin Dipstick Negative (Negative); Urine Clarity Sl. Cloudy (Clear); Urine Urobilinogen Normal (Normal); Urine pH 6.5 (5.0 - 8.0)
[2021-05-02 11:01] LABS: White Blood Cells 10-25 SEEN /hpf (0-5)
[2021-05-02 11:02] LABS: Bacteria 2+ /hpf (None Seen); Mucous, Urine 2+ /hpf (<or=2+); Red Blood Cells-Urine 10-25 SEEN /hpf (0-5); Renal Epithelial Cells 0-5 SEEN /hpf (0-5); Squamous Epithelial Cells - UA 0-5 SEEN /hpf (5-10)
[2021-05-02 11:03] LABS: Hyaline Cast 0-5 SEEN /lpf (0-5)
--- NOTE | 2021-05-02 11:40 | CT_ITS ---
STUDY: CT ABDOMEN AND PELVIS WITH CONTRAST REASON FOR EXAM: Female, 81 years old. Abdominal pain. RADIATION DOSAGE (If Supplied By Facility): CTDIvol = ( 10.52 ) mGy, DLP = ( 894.85 ) mGycm TECHNIQUE: Transaxial images were obtained from the dome of the diaphragm to the symphysis pubis without oral contrast. IV 100mL Isovue-300 was administered. Sagittal and coronal images were reconstructed. Individualized dose optimization techniques were used for this CT. COMPARISON: Comparison is made with prior examination 04/28/2021. FINDINGS: Stable calcified granuloma in the right lower lobe. The visualized portions of the heart are within normal limits. There is decreased attenuation of the liver consistent with steatosis. There is a 1.2cm x 2.4 cm linear hypodensity in the posterior aspect of the right lobe of the liver. There appears to be peripheral enhancement. This may represent a small hemangioma. There are surgical clips in the gallbladder fossa consistent with a prior cholecystectomy. Normal spleen. Normal pancreas. Normal bilateral adrenal glands. Normal right kidney. Normal left kidney. Normal visualized stomach. Normal small intestine. Normal colon. The appendix is visualized and appears normal. There is diffuse atherosclerotic calcification of the abdominal aorta, without a demonstrated aneurysm. Normal inferior vena cava. Normal retroperitoneum. Once again, is a 3.9 cm x 2.2 cm mass at the base of the bladder on the right side. Normal abdominal wall. There are diffuse degenerative changes of the visualized lumbar spine. The patient is status post laminectomy at the L4-L5 and L5-S1 levels. This is unchanged. CT/Abdomen/Pelvis W IV Cont ONLY IMPRESSION: Stable 1.2 cm x 2.4 cm linear hypodensity in the posterior aspect of the right lobe of liver. This most likely represents a small hemangioma. 3.9 sign by 2.2 cm mass at the base of the bladder on the right side. A neoplastic process should be ruled out. Electronically Signed: Ben Mathew MD at 12:16 EDT , Service support ,
[2021-05-02 12:43] VITALS: BP 145/60; PULSE 49; RESP 16; O2SAT 99
--- NOTE | 2021-05-02 14:04 | NURSING ---
MED SURG OBS TERELETSJONO ELEVATED LFT, NAUSEA, VOMITING
[2021-05-02 14:07] VITALS: BP 152/55; PULSE 50; RESP 15; TEMP 36.8; O2SAT 97
--- NOTE | 2021-05-02 14:39 | MRI_ITS ---
History: pancreatitis, n/v, weight loss x 3 wks EXAMINATION: MR MRCP W/O Contrast TECHNIQUE: Multiplanar and multisequence MR images of the abdomen were obtained with MRCP sequence. Three-dimensional post-processing reconstructions were performed. IV Contrast dosage and agent: COMPARISON: CT abdomen and pelvis May 02, 2021 FINDINGS: LIVER: Stable lesion within hepatic segment 7 corresponding to known hemangioma. Normal morphology. GALLBLADDER AND BILIARY TREE: Gallbladder is absent. The extrahepatic CBD measures 4.4 mm. No intra- or extrahepatic biliary dilation. No choledochal filling defect . PANCREAS: No mass. No pancreatic duct dilation. SPLEEN: Non-enlarged. ADRENAL GLANDS: No nodules. KIDNEYS: Normal renal size and position. No hydronephrosis. No mass. LYMPH NODES: No enlarged periportal or retroperitoneal lymph nodes. PERITONEUM: No ascites or fluid collection. VESSELS: Aorta is non-dilated. LOWER CHEST: No pleural effusion. MRI/MRCP Abdomen without Contrast IMPRESSION: Unremarkable MRCP. No biliary dilation or choledocolithiasis. No evidence of a mass. at 1653 Reported and signed by: Haider Wang MD Electronically Signed: Haider Wang MD at 16:52 EDT Tel , Service support ,
--- NOTE | 2021-05-02 15:24 | PCM.HP.STD ---
HPI - General General Date of Admission: 05/02/21 Date of Service: 05/02/21 Chief Complaint: Nausea, intermittent vomiting HPI Temi HENRY, is a 81 F who presents to the emergency room at [facility] with a chief complaint of mid abdominal pain along with nausea and dry heaves, she has intermittent vomiting also but has not had vomiting over the past 2 days. Patient is following up with Dr. Rich the repair order clerk as an outpatient. Patient denies any diarrhea or blood in her stool. Work-up in the emergency room included labs which showed elevated liver enzymes-these have been elevated before on her recent visit to the emergency room but are now decreasing. CT of the abdomen and pelvis again shows an area in the bladder concerning for mass, no definite signs of pancreatitis was noted on the CT scan. Urine has 10-25 white cells. Lipase is elevated at 594. Creatinine and BUN are slightly elevated at [address] Rich was contacted by the emergency room physician, he was concerned about a possible diverticular near the head of the pancreas and he would like an MRCP ordered on the patient if she is admitted. Patient will be admitted to [facility] for pancreatitis and persistent nausea and vomiting. [facility] Medical History Arthritis Carpal tunnel syndrome High cholesterol Hypertension Kidney stone on left side Liver lesion, right lobe Low back problem Multiple lung nodules Peripheral neuropathy Type II diabetes mellitus Home Medications atorvastatin 40 mg PO QHS 02/14/14 [History Last Taken 10 Days Ago ~04/22/21] gabapentin 300 mg PO QHS 02/14/14 [History Last Taken 05/01/21] tolterodine 2 mg PO QHS 02/14/14 [History Last Taken 05/01/21] Januvia 100 mg PO DAILY 04/06/18 [History Last Taken 04/29/21] magnesium 250 mg PO DAILY 11/14/20 [History Last Taken 04/25/21] valsartan 320 mg tablet 320 mg PO DAILY tab 04/10/21 [History Last Taken Unknown] amlodipine 10 mg PO DAILY 05/02/21 [History Last Taken 10 Days Ago ~04/22/21] bupropion HCl 150 mg PO DAILY 05/02/21 [History Last Taken 10 Days Ago ~04/22/21] donepezil 5 mg PO QHS 05/02/21 [History Last Taken 05/01/21] donepezil 10 mg PO QHS 05/02/21 [History Last Taken Unknown] fluoxetine 40 mg PO DAILY 05/02/21 [History Last Taken 10 Days Ago ~04/22/21] hydrochlorothiazide 12.5 mg PO DAILY 05/02/21 [History Last Taken 10 Days Ago ~04/22/21] metformin 1,000 mg PO BID 05/02/21 [History Last Taken 05/01/21] omeprazole 40 mg PO DAILY 05/02/21 [History Last Taken 04/25/21] ondansetron 4 mg PO Q8H PRN PRN 05/02/21 [History Last Taken 05/01/21] Allergy/AdvReac Type Severity Reaction Status Date / Time acetaminophen [From Vicodin] Allergy Unknown Verified 05/02/21 08:28 codeine Allergy Anaphylaxis Verified 05/02/21 08:28 hydrocodone bitartrate Allergy Unknown Verified 05/02/21 08:28 [From Vicodin] zolpidem tartrate AdvReac Other Verified 05/02/21 08:28 [From Ambien] CRAB Allergy Swollen Uncoded 05/02/21 08:28 lymph glands Family History Grandfather Parkinson disease Other CVA (cerebral vascular accident) Surgical History H/O: hysterectomy History of cholecystectomy Social History Smoking Status: Never smoker how long ago did patient quit smoking: stoped in 1970 used when she was in her teens alcohol intake: never substance use type: does not use ROS Constitutional Constitutional: Denies anorexia, change in weight, fever(s), night sweats or weakness Eyes Eyes: Denies blurry vision, change in vision, discharge from eye(s) or eye pain Cardiovascular Cardiovascular: Denies chest pain, claudication, edema or palpitations Respiratory/Chest Respiratory/Chest: Denies cough, hemoptysis, shortness of breath at rest or shortness of breath with exertion Gastrointestinal Gastrointestinal: Reports abdominal pain, nausea and vomiting; Denies constipation, diarrhea, hematemesis, hematochezia or melena Genitourinary Genitourinary: Denies dysuria, hematuria, urinary frequency, urinary hesitancy, urinary incontinence or urinary urgency Musculoskeletal Musculoskeletal: Denies back pain, joint pain, joint stiffness, joint swelling, myalgias or neck pain Neurologic Neurologic: Denies abnormal gait, abnormal speech, dizziness, focal weakness, headache(s), loss of vision, numbness, other visual disturbances, paresthesias, seizure-like activity, syncope or tingling Psychiatric Psychiatric: Reports other Details: Cognitive impairment-questionable dementia ; Denies anxiety, cognitive impairment, depression, irritability, mood swings or suicidal ideation Endocrine Endocrinology: Denies change in body appearance, cold intolerance, excessive sweating, heat intolerance, polydipsia or polyuria Hematologic/Lymphatic Hematologic/Lymphatic: Denies none, anemia, easy bleeding, easy bruising or lymphadenopathy Allergic/Immunologic Allergic/Immunologic: Denies rhinitis, urticaria, eczemia or asthma Vital Signs Vital Signs Vital Signs: 05/02/21 08:29 05/02/21 12:43 05/02/21 14:07 Temperature 97 F L 98.2 F Temperature Source Temporal Oral Pulse Rate 51 L 49 L 50 L Respiratory Rate 18 16 15 Blood Pressure 126/59 H 145/60 H 152/55 H Blood Pressure Mean 81 88 87 Pulse Ox 100 99 97 Oxygen Delivery Method Room Air Room Air Room Air Weight Weight: 58.967 kg Body Mass Index (BMI) 23.0 Physical Exam Const alert, oriented x3, no apparent distress, healthy appearing and well nourished General Appearance: cooperative, well kempt and well developed Orientation / Consciousness: awake, oriented to person, oriented to place and oriented to time HEENT normocephalic, head/scalp atraumatic, hearing grossly normal bilaterally and moist oral mucous membranes Eyes PERRL, EOMs intact bilaterally and conjunctivae normal Neck nuchal rigidity, supple, no JVD, thyroid normal and no carotid bruits General: trachea midline Resp normal respiratory effort, no use of accessory muscles and clear to auscultation bilaterally Auscultation: Negative for rales, rhonchi or wheezes Cardio regular rate, regular rhythm, S1 normal heart sound, S2 normal heart sound, no murmurs, no rub and no gallops GI normal to inspection, nondistended, normoactive bowel sounds, soft to palpation, non-tender and non-distended Extremity no clubbing, cyanosis or edema Skin no rashes or lesions noted General Skin Exam: no breakdown Neuro oriented x3, CN's II-XII intact bilaterally, no focal motor deficits and no sensory deficits noted Sensorium / Orientation: awake and alert Speech: speech normal Psych thought process normal and affect normal Results Lab / Micro Data Result Diagrams: 05/02/21 09:15 05/02/21 09:15 Labs: Laboratory Results - last 24 hr 05/02/21 09:15: WBC 6.6, RBC 4.91, Hgb 12.9, Hct 40.7, MCV 82.9, MCH 26.3 L, MCHC 31.7 L, RDW Std Deviation 40.8, RDW Coeff of Finesse 13.5, Plt Count 175, MPV 12.2 H, Immature Gran % (Auto) 0.800, Neut % (Auto) 63.5, Lymph % (Auto) 22.4, [place] % (Auto) 10.8 H, Eos % (Auto) 2.3, Baso % (Auto) 0.2, Absolute Neuts (auto) 4.2, Absolute Lymphs (auto) 1.48, Nucleated RBC % 0 05/02/21 09:15: Sodium 139, Potassium 3.5, Chloride 100, Carbon Dioxide 28.0, Anion Gap 11, BUN 20 H, Creatinine 1.22 H, Estim Creat Clear Calc 30.42, Est GFR (MDRD) Af Amer 55 L, Est GFR (MDRD) Non-Af 45 L, BUN/Creatinine Ratio 16.4, Glucose 151 H, Calcium 9.1, Total Bilirubin 1.60 H, AST 41 H, ALT 233 H, Alkaline Phosphatase 135 H, Troponin I High Sens 10, Total Protein 6.9, Albumin 3.1 L, Globulin 3.8, Albumin/Globulin Ratio 0.8 L, Lipase 594 H 05/02/21 09:15: Lactic Acid 1.7 05/02/21 10:35: Urine Color Yellow, Urine Clarity Sl. Cloudy, Urine pH 6.5, Ur Specific [place] 1.010, Urine Protein 30 H, Urine Glucose (UA) Normal, Urine Ketones 15 H, Urine Occult Blood 250 H, Urine Nitrite Negative, Urine Bilirubin Negative, Urine Urobilinogen Normal, Ur Leukocyte Esterase 100 H, Urine RBC 10-25 SEEN, Urine WBC 10-25 SEEN, Ur Squamous Epith Cells 0-5 SEEN, Ur Renal Epithelial Cell 0-5 SEEN, Urine Bacteria 2+, Hyaline Casts 0-5 SEEN, Urine Mucus 2+ Radiology Impression Abdomen/Pelvis CT 05/02/21 11:40 IMPRESSION: Stable 1.2 cm x 2.4 cm linear hypodensity in the posterior aspect of the right lobe of liver. This most likely represents a small hemangioma. 3.9 sign by 2.2 cm mass at the base of the bladder on the right side. A neoplastic process should be ruled out. Electronically Signed: Ben Mathew MD at 12:16 EDT , Service support , Assessment & Plan Assessment/Plan (1) Elevated liver enzymes: PLAN: 1. Acute pancreatitis-patient will be admitted to [facility], she will be given IV fluids, patient will undergo an MRCP and be seen in consultation by gastroenterology. #2 elevated liver enzymes-etiology unclear, some of the patient's liver enzymes are improved from the last time they were checked on the 15th and 18th of this month. Patient's bilirubin has remained the same. #3 possible bladder mass-patient will be following up with urology as an outpatient #4 persistent nausea and vomiting-etiology unclear, patient will be given fluids #5 cognitive impairment/dementia-patient is on Aricept #6 type 2 diabetes-patient's blood sugars will be monitored #7 essential hypertension Charges/Coding Visit Charges OBSV E&M: 52632 Initial observation care L3
[2021-05-02 16:09] VITALS: BMI 23.9
--- NOTE | 2021-05-02 16:19 | PCS.PANDOC ---
PANDEMIC DOCUMENTATION INITIATED: Date: 05/02/2021 Time: 1600
[2021-05-02 16:20] VITALS: BP 145/55; PULSE 55; RESP 18; TEMP 37.4; O2SAT 97
[2021-05-02] MEDS: Contrast Allergy Safety Check IV (16:24)
[2021-05-02] MEDS: 0.9% Normal Saline 1,000 ML 125 ML IV ×2 (16:24→23:47)
[2021-05-02 16:40] LABS: Bedside Glucose 111 mg/dL (70-110)
--- NOTE | 2021-05-02 18:58 | PCM.CONS.GEN ---
Assessment & Plan Assessment/Plan (1) Elevated lipase: PLAN: .Elevated lipase likely secondary to a recent bout of choledocholithiasis resulting in pancreatitis. I believe that she likely had a small stone that plugged up her common bile duct affecting her pancreatic duct and causing pancreatitis. I suspect that her lipase was going down and went back up secondary dehydration. There was no sign of pseudocyst or chronic pancreatitis to make me think that this has been going on a long time. She does not admit to drinking any alcohol as per her daughter and her son. She should be on IV fluids at 175 cc an hour. (2) Intractable nausea and vomiting: PLAN: Intractable nausea vomiting secondary to pancreatitis and possibly gastritis. She has been on PPI therapy. 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 At this time she is improving. If her abdominal pain still continues then she will need an endoscopic evaluation. HPI Consult Data Date of Consult: 05/02/21 HPI Narrative HPI Narrative: DILCIA HENRY, is a 81 F who presented to the ED on 04/28/2021 after not been feeling well for the last 10 days. Patient initially was diagnosed with a UTI 10 days ago and started on Macrobid. Patient subsequently developed low-grade fever and vomiting and diarrhea. She has not vomited for several days and her last diarrheal episode was yesterday x2. Patient denies any abdominal pain. Patient has nausea and just has no appetite. Patient generally feels weak. She denies chest pain or shortness of breath. She had imaging in the ED that it showed a bladder mass. I was called to see the patient because she had increased liver enzymes consistent with a cholestatic hepatitis, hyperglycemia and mild jaundice. We had ordered an ultrasound in the ED and it it showed some haziness around the area of the pancreas. I encouraged the patient to stay however she was adamant about leaving. She called me last night and had complaints of excruciating pain and lethargy since leaving the hospital. I requested she go back to the emergency room for further evaluation. When she came to the ED she was discovered to have again an increased lipase. Her LFTs were improving. However she was still a lot of pain. I requested that she get an MRCP due to the fact that she had a large duodenal diverticulum that was seen on previous CT scan and ultrasound. There was no filling defect seen in the area of the pancreas or in the common bile duct. At this time she is still having abdominal pain but it is improved after IV fluids and pain medicine. She is still on antibiotics for UTI. [facility] Medical History Arthritis Carpal tunnel syndrome High cholesterol Hypertension Kidney stone on left side Liver lesion, right lobe Low back problem Multiple lung nodules Peripheral neuropathy Type II diabetes mellitus Home Medications atorvastatin 40 mg PO QHS 02/14/14 [History Last Taken 10 Days Ago ~04/22/21] gabapentin 300 mg PO QHS 02/14/14 [History Last Taken 05/01/21] tolterodine 2 mg PO QHS 02/14/14 [History Last Taken 05/01/21] Januvia 100 mg PO DAILY 04/06/18 [History Last Taken 04/29/21] magnesium 250 mg PO DAILY 11/14/20 [History Last Taken 04/25/21] valsartan 320 mg tablet 320 mg PO DAILY tab 04/10/21 [History Last Taken Unknown] amlodipine 10 mg PO DAILY 05/02/21 [History Last Taken 10 Days Ago ~04/22/21] bupropion HCl 150 mg PO DAILY 05/02/21 [History Last Taken 10 Days Ago ~04/22/21] donepezil 5 mg PO QHS 05/02/21 [History Last Taken 05/01/21] donepezil 10 mg PO QHS 05/02/21 [History Last Taken Unknown] fluoxetine 40 mg PO DAILY 05/02/21 [History Last Taken 10 Days Ago ~04/22/21] hydrochlorothiazide 12.5 mg PO DAILY 05/02/21 [History Last Taken 10 Days Ago ~04/22/21] metformin 1,000 mg PO BID 05/02/21 [History Last Taken 05/01/21] omeprazole 40 mg PO DAILY 05/02/21 [History Last Taken 04/25/21] ondansetron 4 mg PO Q8H PRN PRN 05/02/21 [History Last Taken 05/01/21] Allergy/AdvReac Type Severity Reaction Status Date / Time acetaminophen [From Vicodin] Allergy Unknown Verified 05/02/21 08:28 codeine Allergy Anaphylaxis Verified 05/02/21 08:28 hydrocodone bitartrate Allergy Unknown Verified 05/02/21 08:28 [From Vicodin] zolpidem tartrate AdvReac Other Verified 05/02/21 08:28 [From Ambien] CRAB Allergy Swollen Uncoded 05/02/21 08:28 lymph glands Family History Grandfather Parkinson disease Other CVA (cerebral vascular accident) Surgical History H/O: hysterectomy History of cholecystectomy Social History Smoking Status: Never smoker how long ago did patient quit smoking: stoped in 1969 used when she was in her teens alcohol intake: never substance use type: does not use Physical Exam Const alert General Appearance: cooperative Orientation / Consciousness: oriented to person HEENT hearing grossly normal bilaterally Head and Scalp: normal to inspection Face and Sinus: face symmetric Nose: external nose normal Mouth: oral and palatal mucosa normal Eyes conjunctivae normal General Eye: normal appearance of both eyes Neck full ROM General: normal visual inspection Lymph Lymphatic: no lymphadenopathy noted Chest inspection of chest normal and palpation of chest normal Chest: symmetrical chest wall rise Resp normal respiratory effort Effort and Inspection: able to speak in complete sentences Cardio regular rate GI non-distended Percussion: normal to percussion Rectal Exam: deferred Neuro Speech: speech normal Gait (Neuro): normal gait Lab / Micro Data Result Diagrams: 05/02/21 09:15 05/02/21 09:15 Labs: Laboratory Results - last 24 hr 05/02/21 09:15: WBC 6.6, RBC 4.91, Hgb 12.9, Hct 40.7, MCV 82.9, MCH 26.3 L, MCHC 31.7 L, RDW Std Deviation 40.8, RDW Coeff of Finesse 13.5, Plt Count 175, MPV 12.2 H, Immature Gran % (Auto) 0.800, Neut % (Auto) 63.5, Lymph % (Auto) 22.4, [place] % (Auto) 10.8 H, Eos % (Auto) 2.3, Baso % (Auto) 0.2, Absolute Neuts (auto) 4.2, Absolute Lymphs (auto) 1.48, Nucleated RBC % 0 05/02/21 09:15: Sodium 139, Potassium 3.5, Chloride 100, Carbon Dioxide 28.0, Anion Gap 11, BUN 20 H, Creatinine 1.22 H, Estim Creat Clear Calc 30.42, Est GFR (MDRD) Af Amer 55 L, Est GFR (MDRD) Non-Af 45 L, BUN/Creatinine Ratio 16.4, Glucose 151 H, Calcium 9.1, Total Bilirubin 1.60 H, AST 41 H, ALT 233 H, Alkaline Phosphatase 135 H, Troponin I High Sens 10, Total Protein 6.9, Albumin 3.1 L, Globulin 3.8, Albumin/Globulin Ratio 0.8 L, Lipase 594 H 05/02/21 09:15: Lactic Acid 1.7 05/02/21 10:35: Urine Color Yellow, Urine Clarity Sl. Cloudy, Urine pH 6.5, Ur Specific [place] 1.010, Urine Protein 30 H, Urine Glucose (UA) Normal, Urine Ketones 15 H, Urine Occult Blood 250 H, Urine Nitrite Negative, Urine Bilirubin Negative, Urine Urobilinogen Normal, Ur Leukocyte Esterase 100 H, Urine RBC 10-25 SEEN, Urine WBC 10-25 SEEN, Ur Squamous Epith Cells 0-5 SEEN, Ur Renal Epithelial Cell 0-5 SEEN, Urine Bacteria 2+, Hyaline Casts 0-5 SEEN, Urine Mucus 2+ 05/02/21 16:36: POC Glucose 111 H Radiology Impression Abdomen/Pelvis CT 05/02/21 11:40 IMPRESSION: Stable 1.2 cm x 2.4 cm linear hypodensity in the posterior aspect of the right lobe of liver. This most likely represents a small hemangioma. 3.9 sign by 2.2 cm mass at the base of the bladder on the right side. A neoplastic process should be ruled out. Electronically Signed: Ben Mathew MD at 12:16 EDT , Service support , MRCP 05/02/21 14:39 IMPRESSION: Unremarkable MRCP. No biliary dilation or choledocolithiasis. No evidence of a mass. at 1653 Reported and signed by: Haider Wang MD Electronically Signed: Haider Wang MD at 16:52 EDT Tel , Service support , Charges/Coding Visit Charges Inpatient E&M: 80114 Init Hosp L3
[2021-05-02 22:00] VITALS: BP 129/56; PULSE 51; RESP 16; TEMP 37.2; O2SAT 93
[2021-05-02] MEDS: Atorvastatin Calcium 40 MG Tablet PO (22:02)
[2021-05-02] MEDS: Donepezil HCl 10 MG Tablet PO (22:02)
[2021-05-02] MEDS: Tolterodine Tartrate 2 MG CAP.SA PO (22:03)
[2021-05-02] MEDS: Gabapentin 300 MG Capsule PO (22:03)
[2021-05-02 22:15] LABS: Bedside Glucose 134 mg/dL (70-110)
[2021-05-03 06:24] VITALS: BP 139/59; PULSE 52; RESP 16; TEMP 36.7; O2SAT 97
[2021-05-03] MEDS: 0.9% Normal Saline 1,000 ML 125 ML IV ×3 (06:31→21:32)
[2021-05-03] MEDS: Enoxaparin 40 MG/0.4 ML Syringe SC (06:32)
[2021-05-03 06:41] LABS: Bedside Glucose 145 mg/dL (70-110)
[2021-05-03 06:41] LABS: Absolute Lymphocyte Count 2.24 X10^3/uL (0.83-4.51); Absolute Neutrophil Count 3.5 X10^3/uL (2.0-7.7); Basophil# 0.03 X10^3/uL; Basophil% 0.4 % (0-1); Eosinophil# 0.15 X10^3/uL; Eosinophils% 2.2 % (0-5); Hematocrit 35.3 % (37-47); Hemoglobin 11.1 g/dL (12.0-15.0); Lymphocyte # 2.24 X10^3/ul (0.83-4.51); Mean Corp Hgb Conc 31.4 g/dL (32-36); Mean Corpuscular Hgb 26.2 pg (27.0-32.0); Mean Corpuscular Volume 83.5 fL (81-99); Mean Platelet Vol. 12.5 fl (6.2-12.0); Monocyte# 0.84 X10^3/uL; Monocyte% 12.4 % (0-10); NRBC Flagged by Analyzer 0 % (0-5); Neutrophil # 3.49 X10^3/uL (2.7-7.7); Neutrophil % 51.4 % (47-70); Platelet Count 160 K/mm3 (150-450); RBC Distribution Width CV 13.8 % (11.6-14.6); RBC Distribution Width SD 41.9 fl (35.1-43.9); Red Blood Count 4.23 M/mm3 (4.2-5.4); White Blood Count 6.8 K/mm3 (4.4-11.0)
--- NOTE | 2021-05-03 07:03 | PCM.PN.HOSP ---
Subjective Subjective Patient is an 81-year-old lady admitted with abdominal pain. An assessment of pancreatitis made admitted to regular nursing floor for further management Objective Data Objective Data Vital Signs: Vital Signs Temp Pulse Resp BP Pulse Ox 98.1 F 52 L 16 139/59 H 97 05/03/21 06:24 05/03/21 06:24 05/03/21 06:24 05/03/21 06:24 05/03/21 06:24 Oxygen Delivery Method Room Air Weight: 61.235 kg Body Mass Index (BMI) 23.9 Intake & Output: Intake and Output for Last 24 Hours 05/01/21 05/02/21 05/03/21 23:59 23:59 23:59 Intake Total 2282.92 / 2282.92 841.67 / 841.67 Output Total 200 / 200 Balance 2282.92 / 2282.92 641.67 / 641.67 Lab / Micro Data Result Diagrams: 05/03/21 05:55 05/03/21 05:55 Labs: Laboratory Results - last 24 hr 05/02/21 09:15: WBC 6.6, RBC 4.91, Hgb 12.9, Hct 40.7, MCV 82.9, MCH 26.3 L, MCHC 31.7 L, RDW Std Deviation 40.8, RDW Coeff of Finesse 13.5, Plt Count 175, MPV 12.2 H, Immature Gran % (Auto) 0.800, Neut % (Auto) 63.5, Lymph % (Auto) 22.4, [place] % (Auto) 10.8 H, Eos % (Auto) 2.3, Baso % (Auto) 0.2, Absolute Neuts (auto) 4.2, Absolute Lymphs (auto) 1.48, Nucleated RBC % 0 05/02/21 09:15: Sodium 139, Potassium 3.5, Chloride 100, Carbon Dioxide 28.0, Anion Gap 11, BUN 20 H, Creatinine 1.22 H, Estim Creat Clear Calc 30.42, Est GFR (MDRD) Af Amer 55 L, Est GFR (MDRD) Non-Af 45 L, BUN/Creatinine Ratio 16.4, Glucose 151 H, Calcium 9.1, Total Bilirubin 1.60 H, AST 41 H, ALT 233 H, Alkaline Phosphatase 135 H, Troponin I High Sens 10, Total Protein 6.9, Albumin 3.1 L, Globulin 3.8, Albumin/Globulin Ratio 0.8 L, Lipase 594 H 05/02/21 09:15: Lactic Acid 1.7 05/02/21 10:35: Urine Color Yellow, Urine Clarity Sl. Cloudy, Urine pH 6.5, Ur Specific [place] 1.010, Urine Protein 30 H, Urine Glucose (UA) Normal, Urine Ketones 15 H, Urine Occult Blood 250 H, Urine Nitrite Negative, Urine Bilirubin Negative, Urine Urobilinogen Normal, Ur Leukocyte Esterase 100 H, Urine RBC 10-25 SEEN, Urine WBC 10-25 SEEN, Ur Squamous Epith Cells 0-5 SEEN, Ur Renal Epithelial Cell 0-5 SEEN, Urine Bacteria 2+, Hyaline Casts 0-5 SEEN, Urine Mucus 2+ 05/02/21 16:36: POC Glucose 111 H 05/02/21 22:09: POC Glucose 134 H 05/03/21 05:55: WBC 6.8, RBC 4.23, Hgb 11.1 L, Hct 35.3 L, MCV 83.5, MCH 26.2 L, MCHC 31.4 L, RDW Std Deviation 41.9, RDW Coeff of Finesse 13.8, Plt Count 160, MPV 12.5 H, Immature Gran % (Auto) 0.600, Neut % (Auto) 51.4, Lymph % (Auto) 33.0, [place] % (Auto) 12.4 H, Eos % (Auto) 2.2, Baso % (Auto) 0.4, Absolute Neuts (auto) 3.5, Absolute Lymphs (auto) 2.24, Nucleated RBC % 0 05/03/21 06:30: POC Glucose 145 H Radiography Diagnostic Testing: Radiology Impression Abdomen/Pelvis CT 05/02/21 11:40 IMPRESSION: Stable 1.2 cm x 2.4 cm linear hypodensity in the posterior aspect of the right lobe of liver. This most likely represents a small hemangioma. 3.9 sign by 2.2 cm mass at the base of the bladder on the right side. A neoplastic process should be ruled out. Electronically Signed: Ben Mathew MD at 12:16 EDT , Service support , MRCP 05/02/21 14:39 IMPRESSION: Unremarkable MRCP. No biliary dilation or choledocolithiasis. No evidence of a mass. at 1653 Reported and signed by: Haider Wang MD Electronically Signed: Haider Wang MD at 16:52 EDT Tel , Service support , Physical Exam Narrative GENERAL: cooperative HEENT: Atraumatic; EYES; Anicteric, Normal Conjunctiva NECK; supple, normal thyroid, RESPIRATORY: Diminished to auscultation CARDIOVASCULAR: Regular S1 S2, GI: soft, normoactive bowel sounds, : No Renal angle tenderness; EXTREMITIES: No edema, no clubbing, MUSCULOSKELETAL: no muscle waisting NEURO: Awake; no lateralizing signs. SKIN: No Rash PSYCH; Flat affect Assessment & Plan Assessment/Plan (1) Elevated liver enzymes: PLAN: Patient is an 81-year-old lady admitted with abdominal pain. An assessment of pancreatitis made admitted to regular nursing floor for further management 1. Acute pancreatitis ?Secondary to choledocholithiasis. Admitted to regular nursing floor currently being managed conservatively with consultation placed to GI . Dr. Rich's notes and recommendations reviewed 2. 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 AST back to normal ALT remains slightly elevated 3. Diabetes mellitus type II -patient's oral hypoglycemics held. Placed on long acting insulin, Accu-Cheks a.c. and at bedtime and covered with sliding scale insulin 4. Hypertension - Blood pressure controlled, home medications continued with dose adjustment as needed 5. Mild cognitive impairment ?Patient is on Aricept 6. Dyslipidemia -Patient is on statin therapy, continued at home dose 7. Bladder mass ?Patient to follow-up with urology following discharge 8. DVT prophylaxis ?Lovenox Charges/Coding Visit Charges OBSV E&M: 03457 Subsequent observation care L3
[2021-05-03 07:26] LABS: ALB/GLOB Ratio 0.8 RATIO (0.9-2.4); AST(SGOT) 24 U/L (15-37); Alanine Aminotransfer ALT/SGPT 155 U/L (13-56); Albumin, Serum 2.5 g/dL (3.2-5.0); Alkaline Phosphatase 102 U/L (45-117); Anion Gap 8 (5-15); BUN 13 mg/dL (7-18); BUN/Creat Ratio 18.4 RATIO (10-20); Calcium,Total 8.5 mg/dL (8.5-10.1); Chloride 109 mmol/L (98-107); Creatinine, Serum 0.71 mg/dL (0.55-1.02); EST Glomerular Filtration Rate 84 mL/min (>60); Est Glom Filt Rate - Afr Amer 102 mL/min (>60); Estimated Creatinine Clearance 35.49 ml/min; Globulin 3.1 g/dL (2.2-4.2); Glucose 139 mg/dL (74-106); Lipase 515 U/L (73-393); Potassium 3.4 mmol/L (3.5-5.1); Protein, Total 5.6 g/dL (6.4-8.2); Sodium Level 142 mmol/L (136-145)
[2021-05-03 07:31] VITALS: PULSE 60
[2021-05-03 09:56] VITALS: BP 174/54; PULSE 49; RESP 18; TEMP 36.7; O2SAT 96
[2021-05-03] MEDS: buPROPion (XL) 150 MG TABLET.XL PO (10:02)
[2021-05-03] MEDS: FLUoxetine 20 MG Capsule 40 MG PO (10:02)
[2021-05-03] MEDS: Pantoprazole Sodium 40 MG Tablet PO (10:02)
[2021-05-03] MEDS: amLODIPine 10 MG Tablet PO (10:02)
[2021-05-03] MEDS: Losartan Potassium 100 MG Tablet PO (10:03)
[2021-05-03] MEDS: Ketorolac 15 MG/ML Vial IV (11:18)
[2021-05-03] MEDS: 0.9% Saline Lock 10 ML Syringe IV (11:18)
[2021-05-03] MEDS: Insulin Lispro 100 UNIT/ML INSULN.PEN SC ×2 (11:22→21:27)
[2021-05-03] MEDS: Ceftriaxone 1 GM/50 ML BAG IV (11:22)
[2021-05-03 11:25] LABS: Bedside Glucose 165 mg/dL (70-110)
--- NOTE | 2021-05-03 12:12 | CASEMGMT ---
TACHO CABALLERO Assessment: Face to Face with pt for initial transition planning/care coordination assessment. RN ADA introduced self and role at [facility], pt voices understanding and consents to assessment. Pt is A/O x4 and answers all questions appropriately at this time. Pt sitting up on edge of bed in no distress. Daughter Amara at bedside and present for beginning of assessment. Care providers, pharmacy, and demographics verified/updated. Admitting Dx: elevated LFT, nausea, vomiting PCP:Eliel Specialists: Friend, gastro; Allison, uro; Elder Freed, pain mgmt for spinal injections at [facility]. Preferred Pharmacy: [facility] Insurance: [facility], MMO Prescription Benefit: yes LNOK: Amara Kaplan, dtr; Sahil Morillo, son Living Arrangements: Pt lives alone in a two story house with two steps to enter. Pt reports she uses the main floor of the home. Pt reports she is I in ADL's and denies concerns at home. Transportation: Pt drives self and denies concerns with transportation. DME/HHC/SNF: Pt has 2 canes, one regular and one dressy; walker, grab bars in the bathroom and a BGM. Pt states she has strips and lancets for her BGM. Pt states she has had HHC in the past and is unsure of the name of the agency. Pt has been at [place] in the past. Pt states her passed last year. She states she has been to grief meetings at her voodoo but she has stopped them. She states she is too private and conservative for big group meetings. She states she has good family support and pastoral support. She requests to speak to the hospital ton container filler. Made her aware this RN CM will check to see if he is available. She denies the need to speak to the whether he is or not. Pt states she wants to stay the night tonight because if she does not, she will get a bill from her insurance. She is aware that she is in observation status. Discussed with physician and patient is anticipated to dc tomorrow, observation status maintained. Pt states no concerns with going home at time of dc. Pt states no further concerns/needs. CM to follow. Advised pt to ask CM if any further question/concerns/needs arise, voices understanding. Pt Goal: Home Plan: Home with family support
--- NOTE | 2021-05-03 12:55 | CASEMGMT ---
TACHO CABALLERO in to discuss [employer] form with patient. TACHO CABALLERO explained [employer]WFORD form, patient voiced understanding. Pt signed form and filed in chart. Pt provided with a copy of signed [employer]WF[employer] form. Patient is aware that the health center assistant is out, she still declines to speak with [employer]. Patient had no further questions or concerns at this time.
[2021-05-03 13:34] VITALS: BP 144/64; PULSE 53; RESP 20; TEMP 37.6; O2SAT 97
[2021-05-03 13:38] VITALS: PULSE 60
[2021-05-03 16:46] LABS: Bedside Glucose 100 mg/dL (70-110)
--- NOTE | 2021-05-03 19:12 | PCM.PROGNOTE ---
Subjective Subjective .Patient is doing a little bit better today. She states that she is slightly hungry.. She has not had a bowel movement . She is having mild nausea. Objective Data Objective Data Vital Signs: Vital Signs Temp Pulse Resp BP Pulse Ox 99.7 F H 60 20 H 144/64 H 97 05/03/21 13:34 05/03/21 13:38 05/03/21 13:34 05/03/21 13:34 05/03/21 13:34 Oxygen Delivery Method Room Air Weight: 135 lb Body Mass Index (BMI) 23.9 Intake & Output: Intake and Output for Last 24 Hours 05/01/21 05/02/21 05/03/21 23:59 23:59 23:59 Intake Total 2282.92 / 2282.92 1785.42 / 1785.42 Output Total 200 / 200 Balance 2282.92 / 2282.92 1585.42 / 1585.42 Lab / Micro Data Result Diagrams: 05/03/21 05:55 05/03/21 05:55 Labs: Laboratory Results - last 24 hr 05/02/21 22:09: POC Glucose 134 H 05/03/21 05:55: WBC 6.8, RBC 4.23, Hgb 11.1 L, Hct 35.3 L, MCV 83.5, MCH 26.2 L, MCHC 31.4 L, RDW Std Deviation 41.9, RDW Coeff of Finesse 13.8, Plt Count 160, MPV 12.5 H, Immature Gran % (Auto) 0.600, Neut % (Auto) 51.4, Lymph % (Auto) 33.0, [place] % (Auto) 12.4 H, Eos % (Auto) 2.2, Baso % (Auto) 0.4, Absolute Neuts (auto) 3.5, Absolute Lymphs (auto) 2.24, Nucleated RBC % 0 05/03/21 05:55: Sodium 142, Potassium 3.4 L, Chloride 109 H, Carbon Dioxide 25.0, Anion Gap 8, BUN 13, Creatinine 0.71, Estim Creat Clear Calc 35.49, Est GFR (MDRD) Af Amer 102, Est GFR (MDRD) Non-Af 84, BUN/Creatinine Ratio 18.4, Glucose 139 H, Calcium 8.5, Total Bilirubin 1.10 H, AST 24, ALT 155 H, Alkaline Phosphatase 102, Total Protein 5.6 L, Albumin 2.5 L, Globulin 3.1, Albumin/Globulin Ratio 0.8 L, Lipase 515 H 05/03/21 06:30: POC Glucose 145 H 05/03/21 11:16: POC Glucose 165 H 05/03/21 16:35: POC Glucose 100 Physical Exam Const alert General Appearance: cooperative Orientation / Consciousness: oriented to person HEENT hearing grossly normal bilaterally Head and Scalp: normal to inspection Face and Sinus: face symmetric Nose: external nose normal Mouth: oral and palatal mucosa normal Eyes conjunctivae normal General Eye: normal appearance of both eyes Neck full ROM General: normal visual inspection Lymph Lymphatic: no lymphadenopathy noted Chest inspection of chest normal and palpation of chest normal Chest: symmetrical chest wall rise Resp normal respiratory effort Effort and Inspection: able to speak in complete sentences Cardio regular rate GI non-distended Percussion: normal to percussion Rectal Exam: deferred Neuro Speech: speech normal Gait (Neuro): normal gait Assessment & Plan Assessment/Plan (1) Pancreatitis: PLAN: I suspect that her hyperlipidemia is secondary to mild pancreatitis. I will check an ESR and CRP. Even with IV fluids her lipase seems to be decreasing slowly. She seems to be clinically improving. 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 Continue conservative therapy. Charges/Coding Visit Charges Inpatient E&M: 29365 Subs Hosp L2
[2021-05-03 20:20] VITALS: BP 147/98; PULSE 55; RESP 16; TEMP 37.2; O2SAT 97
[2021-05-03] MEDS: Atorvastatin Calcium 40 MG Tablet PO (21:27)
[2021-05-03] MEDS: Gabapentin 300 MG Capsule PO (21:27)
[2021-05-03] MEDS: Donepezil HCl 10 MG Tablet PO (21:28)
[2021-05-03] MEDS: Tolterodine Tartrate 2 MG CAP.SA PO (21:28)
[2021-05-03 21:36] LABS: Bedside Glucose 173 mg/dL (70-110)
[2021-05-04 02:30] VITALS: BP 150/58; PULSE 50; RESP 18; TEMP 36.8; O2SAT 97
[2021-05-04] MEDS: Ondansetron 4 MG/2 ML Vial IV (02:38)
[2021-05-04] MEDS: 0.9% Normal Saline 1,000 ML 125 ML IV (05:09)
[2021-05-04] MEDS: Enoxaparin 40 MG/0.4 ML Syringe SC (05:09)
[2021-05-04 06:35] LABS: Absolute Lymphocyte Count 2.38 X10^3/uL (0.83-4.51); Absolute Neutrophil Count 3.9 X10^3/uL (2.0-7.7); Basophil# 0.01 X10^3/uL; Basophil% 0.1 % (0-1); Eosinophil# 0.13 X10^3/uL; Eosinophils% 1.9 % (0-5); Hemoglobin 10.9 g/dL (12.0-15.0); Lymphocyte # 2.38 X10^3/ul (0.83-4.51); Lymphocyte % 33.9 % (19-41); Mean Corp Hgb Conc 32.1 g/dL (32-36); Mean Corpuscular Hgb 26.8 pg (27.0-32.0); Mean Corpuscular Volume 83.7 fL (81-99); Mean Platelet Vol. 12.1 fl (6.2-12.0); Monocyte# 0.54 X10^3/uL; Monocyte% 7.7 % (0-10); NRBC Flagged by Analyzer 0 % (0-5); Neutrophil # 3.91 X10^3/uL (2.7-7.7); Neutrophil % 55.7 % (47-70); Platelet Count 146 K/mm3 (150-450); RBC Distribution Width CV 13.5 % (11.6-14.6); RBC Distribution Width SD 41.4 fl (35.1-43.9); Red Blood Count 4.06 M/mm3 (4.2-5.4)
[2021-05-04 06:56] LABS: Bedside Glucose 146 mg/dL (70-110)
[2021-05-04 07:05] LABS: ALB/GLOB Ratio 0.8 RATIO (0.9-2.4); AST(SGOT) 20 U/L (15-37); Alanine Aminotransfer ALT/SGPT 118 U/L (13-56); Albumin, Serum 2.5 g/dL (3.2-5.0); Alkaline Phosphatase 94 U/L (45-117); Anion Gap 7 (5-15); BUN 6 mg/dL (7-18); BUN/Creat Ratio 9.5 RATIO (10-20); Calcium,Total 8.2 mg/dL (8.5-10.1); Chloride 111 mmol/L (98-107); Creatinine, Serum 0.63 mg/dL (0.55-1.02); EST Glomerular Filtration Rate 96 mL/min (>60); Est Glom Filt Rate - Afr Amer 117 mL/min (>60); Estimated Creatinine Clearance 35.49 ml/min; Glucose 137 mg/dL (74-106); Magnesium 1.4 mg/dL (1.6-2.6); Potassium 3.3 mmol/L (3.5-5.1); Protein, Total 5.5 g/dL (6.4-8.2); Sodium Level 143 mmol/L (136-145)
[2021-05-04] MEDS: Ceftriaxone 1 GM/50 ML BAG IV (09:02)
[2021-05-04] MEDS: Insulin Lispro 100 UNIT/ML INSULN.PEN SC ×2 (10:49→15:45)
[2021-05-04] MEDS: amLODIPine 10 MG Tablet PO (10:59)
[2021-05-04] MEDS: Losartan Potassium 100 MG Tablet PO (10:59)
[2021-05-04] MEDS: Pantoprazole Sodium 40 MG Tablet PO (10:59)
[2021-05-04] MEDS: FLUoxetine 20 MG Capsule 40 MG PO (11:00)
[2021-05-04] MEDS: buPROPion (XL) 150 MG TABLET.XL PO (11:00)
--- NOTE | 2021-05-04 11:21 | PCM.PN.HOSP ---
Subjective Subjective Had a large BM this morning and feels better. She still uncertain about going home Objective Data Objective Data Vital Signs: Vital Signs Temp Pulse Resp BP Pulse Ox 98.2 F 50 L 18 150/58 H 97 05/04/21 02:30 05/04/21 02:30 05/04/21 02:30 05/04/21 02:30 05/04/21 02:30 Oxygen Delivery Method Room Air Weight: 135 lb Body Mass Index (BMI) 23.9 Intake & Output: Intake and Output for Last 24 Hours 05/03/21 05/04/21 05/05/21 03:59 03:59 03:59 Intake Total 2282.92 / 2282.92 2768.75 / 2768.75 1002.08 / 1002.08 Output Total 200 / 200 650 / 650 Balance 2082.92 / 2082.92 2768.75 / 2768.75 352.08 / 352.08 Lab / Micro Data Result Diagrams: 05/04/21 06:27 05/04/21 06:27 Labs: Laboratory Results - last 24 hr 05/03/21 11:16: POC Glucose 165 H 05/03/21 16:35: POC Glucose 100 05/03/21 21:26: POC Glucose 173 H 05/04/21 06:27: WBC 7.0, RBC 4.06 L, Hgb 10.9 L, Hct 34.0 L, MCV 83.7, MCH 26.8 L, MCHC 32.1, RDW Std Deviation 41.4, RDW Coeff of Finesse 13.5, Plt Count 146 L, MPV 12.1 H, Immature Gran % (Auto) 0.700, Neut % (Auto) 55.7, Lymph % (Auto) 33.9, [place] % (Auto) 7.7, Eos % (Auto) 1.9, Baso % (Auto) 0.1, Absolute Neuts (auto) 3.9, Absolute Lymphs (auto) 2.38, Nucleated RBC % 0 05/04/21 06:27: Sodium 143, Potassium 3.3 L, Chloride 111 H, Carbon Dioxide 25.0, Anion Gap 7, BUN 6 L, Creatinine 0.63, Estim Creat Clear Calc 35.49, Est GFR (MDRD) Af Amer 117, Est GFR (MDRD) Non-Af 96, BUN/Creatinine Ratio 9.5 L, Glucose 137 H, Calcium 8.2 L, Magnesium 1.4 L, Total Bilirubin 1.00, AST 20, ALT 118 H, Alkaline Phosphatase 94, Total Protein 5.5 L, Albumin 2.5 L, Globulin 3.0, Albumin/Globulin Ratio 0.8 L 05/04/21 06:46: POC Glucose 146 H
--- NOTE | 2021-05-04 11:24 | PCM.PN.HOSP ---
Subjective Subjective Feels a bit better today, had a large BM this morning. Objective Data Objective Data Vital Signs: Vital Signs Temp Pulse Resp BP Pulse Ox 98.2 F 50 L 18 150/58 H 97 05/04/21 02:30 05/04/21 02:30 05/04/21 02:30 05/04/21 02:30 05/04/21 02:30 Oxygen Delivery Method Room Air Weight: 135 lb Body Mass Index (BMI) 23.9 Intake & Output: Intake and Output for Last 24 Hours 05/03/21 05/04/21 05/05/21 03:59 03:59 03:59 Intake Total 2282.92 / 2282.92 2768.75 / 2768.75 1002.08 / 1002.08 Output Total 200 / 200 650 / 650 Balance 2082.92 / 2082.92 2768.75 / 2768.75 352.08 / 352.08 Lab / Micro Data Result Diagrams: 05/04/21 06:27 05/04/21 06:27 Labs: Laboratory Results - last 24 hr 05/03/21 11:16: POC Glucose 165 H 05/03/21 16:35: POC Glucose 100 05/03/21 21:26: POC Glucose 173 H 05/04/21 06:27: WBC 7.0, RBC 4.06 L, Hgb 10.9 L, Hct 34.0 L, MCV 83.7, MCH 26.8 L, MCHC 32.1, RDW Std Deviation 41.4, RDW Coeff of Finesse 13.5, Plt Count 146 L, MPV 12.1 H, Immature Gran % (Auto) 0.700, Neut % (Auto) 55.7, Lymph % (Auto) 33.9, [place] % (Auto) 7.7, Eos % (Auto) 1.9, Baso % (Auto) 0.1, Absolute Neuts (auto) 3.9, Absolute Lymphs (auto) 2.38, Nucleated RBC % 0 05/04/21 06:27: Sodium 143, Potassium 3.3 L, Chloride 111 H, Carbon Dioxide 25.0, Anion Gap 7, BUN 6 L, Creatinine 0.63, Estim Creat Clear Calc 35.49, Est GFR (MDRD) Af Amer 117, Est GFR (MDRD) Non-Af 96, BUN/Creatinine Ratio 9.5 L, Glucose 137 H, Calcium 8.2 L, Magnesium 1.4 L, Total Bilirubin 1.00, AST 20, ALT 118 H, Alkaline Phosphatase 94, Total Protein 5.5 L, Albumin 2.5 L, Globulin 3.0, Albumin/Globulin Ratio 0.8 L 05/04/21 06:46: POC Glucose 146 H Physical Exam Const alert, oriented x3 and no apparent distress General Appearance: cooperative HEENT normocephalic and moist oral mucous membranes Eyes PERRL, EOMs intact bilaterally and conjunctivae normal Neck supple and no JVD Resp normal respiratory effort, no retractions, no use of accessory muscles and clear to auscultation bilaterally Auscultation: Negative for crackles, rales, rhonchi or wheezes Cardio regular rate, regular rhythm, S1 normal heart sound, S2 normal heart sound and no murmurs GI soft to palpation and non-distended; Negative for hepatosplenomegaly Palpation: tender Extremity no clubbing, cyanosis or edema Skin no rashes or lesions noted Neuro no focal motor deficits and no sensory deficits noted Psych affect normal Appearance: appropriate Assessment & Plan Assessment/Plan (1) Elevated liver enzymes: PLAN: 1. Acute pancreatitis ?Secondary to choledocholithiasis. Admitted to regular nursing floor currently being managed conservatively with consultation placed to GI . Dr. Rich's notes and recommendations reviewed -05/04/2021: Lipase is trending down and was never severely elevated and there is no CT findings of pancreatitis, possibility of gastroenteritis as a cause of her discomfort. MRCP was unremarkable. 2. 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 AST back to normal ALT remains slightly elevated 3. Diabetes mellitus type II -patient's oral hypoglycemics held. Placed on long acting insulin, Accu-Cheks a.c. and at bedtime and covered with sliding scale insulin 4. Hypertension - Blood pressure controlled, home medications continued with dose adjustment as needed 5. Mild cognitive impairment ?Patient is on Aricept 6. Dyslipidemia -Patient is on statin therapy, continued at home dose 7. Bladder mass ?Patient to follow-up with urology following discharge 05/04/2021: Patient aware of the need for urology follow-up 8. DVT prophylaxis ?Lovenox Charges/Coding Visit Charges OBSV E&M: 41467 Subsequent observation care L2
[2021-05-04 11:46] LABS: Phosphorus 2.9 mg/dL (2.5-4.9)
[2021-05-04] MEDS: Creon 24,000 unit DR Capsule 1 CAP PO ×2 (12:05→15:45)
[2021-05-04 13:52] VITALS: BP 152/67; PULSE 51; RESP 16; TEMP 37.1; O2SAT 96
[2021-05-04] MEDS: 0.9% Normal Saline 1,000 ML 100 ML IV ×2 (14:50→22:31)
[2021-05-04 14:52] VITALS: PULSE 70
[2021-05-04] MEDS: Potassium Chloride Oral Tablet 20 MEQ 60 MEQ PO (15:44)
[2021-05-04 16:21] VITALS: BP 163/84; PULSE 60; RESP 16; TEMP 37.2; O2SAT 97
--- NOTE | 2021-05-04 18:39 | EX.PCM.PN.GI ---
Subjective Subjective She is actually doing a lot better. Added pancreatic enzymes in order to help digestive food better and the setting of pancreatitis. She is feeling a lot better and her appetite is improving also. Objective Data Objective Data Vital Signs: Vital Signs Temp Pulse Resp BP Pulse Ox 98.9 F 60 16 163/84 H 97 05/04/21 16:21 05/04/21 16:21 05/04/21 16:21 05/04/21 16:21 05/04/21 16:21 Oxygen Delivery Method Room Air Weight: 135 lb Body Mass Index (BMI) 23.9 Intake & Output: Intake and Output for Last 24 Hours 05/02/21 05/03/21 05/04/21 23:59 23:59 23:59 Intake Total 2282.92 / 2282.92 2768.75 / 2768.75 1981.08 / 1980.08 Output Total 200 / 200 650 / 650 Balance 2282.92 / 2282.92 2568.75 / 2568.75 1331.08 / 1331.08 Lab / Micro Data Result Diagrams: 05/04/21 06:27 05/04/21 06:27 Labs: Laboratory Results - last 24 hr 05/03/21 21:26: POC Glucose 173 H 05/04/21 06:27: WBC 7.0, RBC 4.06 L, Hgb 10.9 L, Hct 34.0 L, MCV 83.7, MCH 26.8 L, MCHC 32.1, RDW Std Deviation 41.4, RDW Coeff of Finesse 13.5, Plt Count 146 L, MPV 12.1 H, Immature Gran % (Auto) 0.700, Neut % (Auto) 55.7, Lymph % (Auto) 33.9, [place] % (Auto) 7.7, Eos % (Auto) 1.9, Baso % (Auto) 0.1, Absolute Neuts (auto) 3.9, Absolute Lymphs (auto) 2.38, Nucleated RBC % 0 05/04/21 06:27: Sodium 143, Potassium 3.3 L, Chloride 111 H, Carbon Dioxide 25.0, Anion Gap 7, BUN 6 L, Creatinine 0.63, Estim Creat Clear Calc 35.49, Est GFR (MDRD) Af Amer 117, Est GFR (MDRD) Non-Af 96, BUN/Creatinine Ratio 9.5 L, Glucose 137 H, Calcium 8.2 L, Magnesium 1.4 L, Total Bilirubin 1.00, AST 20, ALT 118 H, Alkaline Phosphatase 94, Total Protein 5.5 L, Albumin 2.5 L, Globulin 3.0, Albumin/Globulin Ratio 0.8 L 05/04/21 06:27: Phosphorus 2.9 05/04/21 06:46: POC Glucose 146 H Physical Exam Const alert General Appearance: cooperative Orientation / Consciousness: oriented to person HEENT hearing grossly normal bilaterally Head and Scalp: normal to inspection Face and Sinus: face symmetric Nose: external nose normal Mouth: oral and palatal mucosa normal Eyes conjunctivae normal General Eye: normal appearance of both eyes Neck full ROM General: normal visual inspection Lymph Lymphatic: no lymphadenopathy noted Chest inspection of chest normal and palpation of chest normal Chest: symmetrical chest wall rise Resp normal respiratory effort Effort and Inspection: able to speak in complete sentences Cardio regular rate GI non-distended Percussion: normal to percussion Rectal Exam: deferred Neuro Speech: speech normal Gait (Neuro): normal gait Assessment & Plan Assessment/Plan (1) Pancreatitis: PLAN: I suspect that her hyperlipidemia is secondary to mild pancreatitis. Even with IV fluids her lipase seems to be decreasing slowly. She seems to be clinically improving. Continue current therapy. 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 Continue conservative therapy. (2) Bladder mass: (3) Intractable nausea and vomiting:
[2021-05-04 20:00] VITALS: BP 163/60; PULSE 52; RESP 16; TEMP 37.2; O2SAT 97
[2021-05-04] MEDS: Donepezil HCl 10 MG Tablet PO (21:28)
[2021-05-04] MEDS: Gabapentin 300 MG Capsule PO (21:28)
[2021-05-04] MEDS: Atorvastatin Calcium 40 MG Tablet PO (21:28)
[2021-05-04] MEDS: Tolterodine Tartrate 2 MG CAP.SA PO (21:28)
[2021-05-04 21:50] LABS: Bedside Glucose 136 mg/dL (70-110)
[2021-05-04 23:15] LABS: Bedside Glucose 151 mg/dL (70-110)
[2021-05-04 23:15] LABS: Bedside Glucose 169 mg/dL (70-110)
[2021-05-05 02:05] VITALS: BP 127/90; PULSE 52; RESP 16; TEMP 37.1; O2SAT 94
[2021-05-05] MEDS: Enoxaparin 40 MG/0.4 ML Syringe SC (06:28)
[2021-05-05 06:46] LABS: Absolute Lymphocyte Count 1.88 X10^3/uL (0.83-4.51); Absolute Neutrophil Count 3.1 X10^3/uL (2.0-7.7); Basophil# 0.02 X10^3/uL; Basophil% 0.3 % (0-1); Eosinophils% 3.5 % (0-5); Hematocrit 34.6 % (37-47); Hemoglobin 10.5 g/dL (12.0-15.0); Lymphocyte # 1.88 X10^3/ul (0.83-4.51); Lymphocyte % 32.5 % (19-41); Mean Corp Hgb Conc 30.3 g/dL (32-36); Mean Corpuscular Volume 85.6 fL (81-99); Monocyte% 10.4 % (0-10); NRBC Flagged by Analyzer 0 % (0-5); Neutrophil # 3.06 X10^3/uL (2.7-7.7); Platelet Count 156 K/mm3 (150-450); RBC Distribution Width CV 13.7 % (11.6-14.6); Red Blood Count 4.04 M/mm3 (4.2-5.4); White Blood Count 5.8 K/mm3 (4.4-11.0)
[2021-05-05 07:18] LABS: ALB/GLOB Ratio 0.9 RATIO (0.9-2.4); AST(SGOT) 19 U/L (15-37); Alanine Aminotransfer ALT/SGPT 101 U/L (13-56); Albumin, Serum 2.6 g/dL (3.2-5.0); Alkaline Phosphatase 93 U/L (45-117); Anion Gap 5 (5-15); BUN 4 mg/dL (7-18); BUN/Creat Ratio 5.5 RATIO (10-20); Calcium,Total 8.5 mg/dL (8.5-10.1); Chloride 113 mmol/L (98-107); Creatinine, Serum 0.73 mg/dL (0.55-1.02); EST Glomerular Filtration Rate 82 mL/min (>60); Est Glom Filt Rate - Afr Amer 99 mL/min (>60); Estimated Creatinine Clearance 35.49 ml/min; Glucose 154 mg/dL (74-106); Magnesium 1.7 mg/dL (1.6-2.6); Potassium 3.8 mmol/L (3.5-5.1); Protein, Total 5.6 g/dL (6.4-8.2); Sodium Level 144 mmol/L (136-145)
[2021-05-05 07:39] VITALS: BP 148/70; PULSE 50; RESP 16; TEMP 37.1; O2SAT 97
[2021-05-05] MEDS: Creon 24,000 unit DR Capsule 1 CAP PO ×3 (07:43→16:47)
[2021-05-05] MEDS: 0.9% Normal Saline 1,000 ML 100 ML IV (07:43)
[2021-05-05 08:01] LABS: Bedside Glucose 146 mg/dL (70-110)
[2021-05-05] MEDS: FLUoxetine 20 MG Capsule 40 MG PO (09:49)
[2021-05-05] MEDS: Losartan Potassium 100 MG Tablet PO (09:49)
[2021-05-05] MEDS: Pantoprazole Sodium 40 MG Tablet PO (09:49)
[2021-05-05] MEDS: amLODIPine 10 MG Tablet PO (09:49)
[2021-05-05] MEDS: Ceftriaxone 1 GM/50 ML BAG IV (09:49)
[2021-05-05] MEDS: buPROPion (XL) 150 MG TABLET.XL PO (09:49)
[2021-05-05 12:16] LABS: Bedside Glucose 149 mg/dL (70-110)
[2021-05-05 14:45] VITALS: BP 185/61; PULSE 59; RESP 16; TEMP 37.3; O2SAT 97
--- NOTE | 2021-05-05 16:14 | PCM.PN.HOSP ---
Subjective Subjective Was doing well this morning and then had a large BM that the nurse was able to evaluate and saw that it was bloody. Objective Data Objective Data Vital Signs: Vital Signs Temp Pulse Resp BP Pulse Ox 99.1 F 59 L 16 185/61 H 97 05/05/21 14:45 05/05/21 14:45 05/05/21 14:45 05/05/21 14:45 05/05/21 14:45 Oxygen Delivery Method Room Air Weight: 135 lb Body Mass Index (BMI) 23.9 Intake & Output: Intake and Output for Last 24 Hours 05/04/21 05/05/21 05/06/21 03:59 03:59 03:59 Intake Total 2768.75 / 2768.75 2749.41 / 2749.41 1780 / 1780 Output Total 650 / 650 300 / 300 Balance 2768.75 / 2768.75 2099.41 / 2099.41 1480 / 1480 Lab / Micro Data Result Diagrams: 05/05/21 05:52 05/05/21 05:52 Labs: Laboratory Results - last 24 hr 05/04/21 10:46: POC Glucose 151 H 05/04/21 15:40: POC Glucose 169 H 05/04/21 21:27: POC Glucose 136 H 05/05/21 05:52: Sodium 144, Potassium 3.8, Chloride 113 H, Carbon Dioxide 26.0, Anion Gap 5, BUN 4 L, Creatinine 0.73, Estim Creat Clear Calc 35.49, Est GFR (MDRD) Af Amer 99, Est GFR (MDRD) Non-Af 82, BUN/Creatinine Ratio 5.5 L, Glucose 154 H, Calcium 8.5, Magnesium 1.7, Total Bilirubin 1.10 H, AST 19, ALT 101 H, Alkaline Phosphatase 93, Total Protein 5.6 L, Albumin 2.6 L, Globulin 3.0, Albumin/Globulin Ratio 0.9 05/05/21 05:52: WBC 5.8, RBC 4.04 L, Hgb 10.5 L, Hct 34.6 L, MCV 85.6, MCH 26.0 L, MCHC 30.3 L D, RDW Std Deviation 43.0, RDW Coeff of Finesse 13.7, Plt Count 156, MPV 13.0 H, Immature Gran % (Auto) 0.300, Neut % (Auto) 53.0, Lymph % (Auto) 32.5, [place] % (Auto) 10.4 H, Eos % (Auto) 3.5, Baso % (Auto) 0.3, Absolute Neuts (auto) 3.1, Absolute Lymphs (auto) 1.88, Nucleated RBC % 0 05/05/21 06:28: POC Glucose 146 H 05/05/21 12:02: POC Glucose 149 H Micro: Microbiology 05/02/21 10:35 Urine, Clean Catch Urine Culture - Final Mixed Gram Positive Organisms Physical Exam Const alert, oriented x3 and no apparent distress General Appearance: cooperative HEENT normocephalic and moist oral mucous membranes Eyes PERRL, EOMs intact bilaterally and conjunctivae normal Neck supple and no JVD Resp normal respiratory effort, no retractions, no use of accessory muscles and clear to auscultation bilaterally Auscultation: Negative for crackles, rales, rhonchi or wheezes Cardio regular rate, regular rhythm, S1 normal heart sound, S2 normal heart sound and no murmurs GI soft to palpation, non-tender and non-distended; Negative for hepatosplenomegaly Extremity no clubbing, cyanosis or edema Skin no rashes or lesions noted Neuro no focal motor deficits and no sensory deficits noted Psych affect normal Appearance: appropriate Assessment & Plan Assessment/Plan (1) Elevated liver enzymes: PLAN: 1. Acute pancreatitis ?Secondary to choledocholithiasis. Admitted to regular nursing floor currently being managed conservatively with consultation placed to GI . Dr. Rich's notes and recommendations reviewed -05/04/2021: Lipase is trending down and was never severely elevated and there is no CT findings of pancreatitis, possibility of gastroenteritis as a cause of her discomfort. MRCP was unremarkable. -05/05/2021: Plan to advance her diet today to make sure she could tolerate it and then after morning rounds she had a large bowel movement that the nurse was able to evaluate and noted blood. Made GI aware. 2. 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 AST back to normal ALT remains slightly elevated 3. Diabetes mellitus type II -patient's oral hypoglycemics held. Placed on long acting insulin, Accu-Cheks a.c. and at bedtime and covered with sliding scale insulin 4. Hypertension - Blood pressure controlled, home medications continued with dose adjustment as needed 5. Mild cognitive impairment ?Patient is on Aricept 6. Dyslipidemia -Patient is on statin therapy, continued at home dose 7. Bladder mass ?Patient to follow-up with urology following discharge 05/04/2021: Patient aware of the need for urology follow-up DVT: SCDs Charges/Coding Visit Charges OBSV E&M: 19766 Subsequent observation care L2
[2021-05-05] MEDS: Insulin Lispro 100 UNIT/ML INSULN.PEN SC (16:47)
[2021-05-05 17:06] LABS: Bedside Glucose 185 mg/dL (70-110)
[2021-05-05 18:06] VITALS: BP 146/50; PULSE 53; RESP 16; TEMP 36.8; O2SAT 100
[2021-05-05] MEDS: Tolterodine Tartrate 2 MG CAP.SA PO (22:27)
[2021-05-05] MEDS: Gabapentin 300 MG Capsule PO (22:27)
[2021-05-05] MEDS: Atorvastatin Calcium 40 MG Tablet PO (22:27)
[2021-05-05] MEDS: Donepezil HCl 10 MG Tablet PO (22:27)
[2021-05-05 23:10] LABS: Bedside Glucose 144 mg/dL (70-110)
[2021-05-06 00:05] VITALS: BP 151/59; PULSE 58; RESP 16; TEMP 37; O2SAT 99
[2021-05-06] MEDS: Ondansetron 4 MG/2 ML Vial IV (04:32)
[2021-05-06] MEDS: 0.9% Saline Lock 10 ML Syringe IV (04:32)
[2021-05-06 06:05] VITALS: BP 149/63; PULSE 56; RESP 16; TEMP 36.9; O2SAT 98
[2021-05-06 06:55] LABS: Bedside Glucose 149 mg/dL (70-110)
[2021-05-06 07:38] LABS: Absolute Neutrophil Count 4.9 X10^3/uL (2.0-7.7); Basophil# 0.02 X10^3/uL; Basophil% 0.2 % (0-1); Eosinophil# 0.19 X10^3/uL; Eosinophils% 2.3 % (0-5); Hematocrit 35.8 % (37-47); Hemoglobin 11.4 g/dL (12.0-15.0); Lymphocyte % 27.1 % (19-41); Mean Corp Hgb Conc 31.8 g/dL (32-36); Mean Corpuscular Hgb 26.6 pg (27.0-32.0); Mean Corpuscular Volume 83.6 fL (81-99); Monocyte# 0.82 X10^3/uL; Monocyte% 10.1 % (0-10); NRBC Flagged by Analyzer 0 % (0-5); Neutrophil # 4.87 X10^3/uL (2.7-7.7); Neutrophil % 59.9 % (47-70); Platelet Count 147 K/mm3 (150-450); RBC Distribution Width CV 13.4 % (11.6-14.6); RBC Distribution Width SD 41.1 fl (35.1-43.9); Red Blood Count 4.28 M/mm3 (4.2-5.4); White Blood Count 8.1 K/mm3 (4.4-11.0)
[2021-05-06 07:50] LABS: ALB/GLOB Ratio 0.8 RATIO (0.9-2.4); AST(SGOT) 18 U/L (15-37); Alanine Aminotransfer ALT/SGPT 92 U/L (13-56); Albumin, Serum 2.7 g/dL (3.2-5.0); Alkaline Phosphatase 96 U/L (45-117); Anion Gap 8 (5-15); BUN 10 mg/dL (7-18); BUN/Creat Ratio 11.8 RATIO (10-20); Calcium,Total 9.1 mg/dL (8.5-10.1); Chloride 107 mmol/L (98-107); Creatinine, Serum 0.85 mg/dL (0.55-1.02); EST Glomerular Filtration Rate 69 mL/min (>60); Est Glom Filt Rate - Afr Amer 83 mL/min (>60); Estimated Creatinine Clearance 41.75 ml/min; Globulin 3.5 g/dL (2.2-4.2); Glucose 156 mg/dL (74-106); Potassium 3.7 mmol/L (3.5-5.1); Protein, Total 6.2 g/dL (6.4-8.2); Sodium Level 141 mmol/L (136-145)
[2021-05-06] MEDS: Creon 24,000 unit DR Capsule 1 CAP PO (08:16)
[2021-05-06 08:27] VITALS: BP 158/61; PULSE 53; RESP 16; TEMP 36.6; O2SAT 96
--- NOTE | 2021-05-06 08:30 | EX.PCM.PN.GI ---
Subjective Subjective She had a large bowel movement and a lot of blood was seen in the stool. It was painless. She had been having bloody bowel movements for the past several days. Her hemoglobin is increased from yesterday. Objective Data Objective Data Vital Signs: Vital Signs Temp Pulse Resp BP Pulse Ox 98 F 53 L 16 158/61 H 96 05/06/21 08:27 05/06/21 08:27 05/06/21 08:27 05/06/21 08:27 05/06/21 08:27 Oxygen Delivery Method Room Air Weight: 135 lb Body Mass Index (BMI) 23.9 Intake & Output: Intake and Output for Last 24 Hours 05/04/21 05/05/21 05/06/21 23:59 23:59 23:59 Intake Total 2749.41 / 2749.41 3038 / 3038 Output Total 650 / 650 900 / 900 600 / 600 Balance 2099.41 / 2099.41 2138 / 2138 -600 / -600 Lab / Micro Data Result Diagrams: 05/06/21 06:55 05/06/21 06:55 Labs: Laboratory Results - last 24 hr 05/05/21 12:02: POC Glucose 149 H 05/05/21 16:46: POC Glucose 185 H 05/05/21 22:30: POC Glucose 144 H 05/06/21 06:15: POC Glucose 149 H 05/06/21 06:55: Sodium 141, Potassium 3.7, Chloride 107, Carbon Dioxide 26.0, Anion Gap 8, BUN 10, Creatinine 0.85, Estim Creat Clear Calc 41.75, Est GFR (MDRD) Af Amer 83, Est GFR (MDRD) Non-Af 69, BUN/Creatinine Ratio 11.8, Glucose 156 H, Calcium 9.1, Total Bilirubin 1.00, AST 18, ALT 92 H, Alkaline Phosphatase 96, Total Protein 6.2 L, Albumin 2.7 L, Globulin 3.5, Albumin/Globulin Ratio 0.8 L 05/06/21 06:55: WBC 8.1, RBC 4.28, Hgb 11.4 L, Hct 35.8 L, MCV 83.6, MCH 26.6 L, MCHC 31.8 L, RDW Std Deviation 41.1, RDW Coeff of Finesse 13.4, Plt Count 147 L, MPV 13.0 H, Immature Gran % (Auto) 0.400, Neut % (Auto) 59.9, Lymph % (Auto) 27.1, [place] % (Auto) 10.1 H, Eos % (Auto) 2.3, Baso % (Auto) 0.2, Absolute Neuts (auto) 4.9, Absolute Lymphs (auto) 2.20, Nucleated RBC % 0 Micro: Microbiology 05/02/21 10:35 Urine, Clean Catch Urine Culture - Final Mixed Gram Positive Organisms Physical Exam Const alert General Appearance: cooperative Orientation / Consciousness: oriented to person HEENT hearing grossly normal bilaterally Head and Scalp: normal to inspection Face and Sinus: face symmetric Nose: external nose normal Mouth: oral and palatal mucosa normal Eyes conjunctivae normal General Eye: normal appearance of both eyes Neck full ROM General: normal visual inspection Lymph Lymphatic: no lymphadenopathy noted Chest inspection of chest normal and palpation of chest normal Chest: symmetrical chest wall rise Resp normal respiratory effort Effort and Inspection: able to speak in complete sentences Cardio regular rate GI non-distended Percussion: normal to percussion Rectal Exam: deferred Neuro Speech: speech normal Gait (Neuro): normal gait Assessment & Plan Assessment/Plan (1) Lower GI bleed: PLAN: I suspect that her lower GI bleed either came from a diverticular source, stercoral ulcer associated with constipation, anal fissure associated with constipation, ischemic colitis associated with her recent hospital stay. Lower on the differential diagnosis would be inflammatory bowel disease such as ulcerative colitis, infectious colitis or malignancy. If she continues to bleed we may have to perform a colonoscopy. Her hemoglobin is improving which is really good. (2) Pancreatitis: PLAN: I will recheck her lipase as it has not been checked in a couple days to make sure it continues to improve. (3) Elevated liver enzymes: PLAN: Her liver enzymes are almost back to normal. I believe she had either sludge in her common bile duct or choledocholithiasis that caused the pain and hyperlipasemia.
--- NOTE | 2021-05-06 09:00 | PCM.PN.HOSP ---
Subjective Subjective Abdominal pain is improving, and she is tolerating a diet without significant discomfort. However she does continue to have diarrhea that is intermittently bloody hemoglobin is rising though and is stable Objective Data Objective Data Vital Signs: Vital Signs Temp Pulse Resp BP Pulse Ox 98 F 53 L 16 158/61 H 96 05/06/21 08:27 05/06/21 08:27 05/06/21 08:27 05/06/21 08:27 05/06/21 08:27 Oxygen Delivery Method Room Air Weight: 135 lb Body Mass Index (BMI) 23.9 Intake & Output: Intake and Output for Last 24 Hours 05/05/21 05/06/21 05/07/21 03:59 03:59 03:59 Intake Total 2749.41 / 2749.41 3038 / 3038 Output Total 650 / 650 900 / 900 600 / 600 Balance 2099.41 / 2099.41 2138 / 2138 -600 / -600 Lab / Micro Data Result Diagrams: 05/06/21 06:55 05/06/21 06:55 Labs: Laboratory Results - last 24 hr 05/05/21 12:02: POC Glucose 149 H 05/05/21 16:46: POC Glucose 185 H 05/05/21 22:30: POC Glucose 144 H 05/06/21 06:15: POC Glucose 149 H 05/06/21 06:55: Sodium 141, Potassium 3.7, Chloride 107, Carbon Dioxide 26.0, Anion Gap 8, BUN 10, Creatinine 0.85, Estim Creat Clear Calc 41.75, Est GFR (MDRD) Af Amer 83, Est GFR (MDRD) Non-Af 69, BUN/Creatinine Ratio 11.8, Glucose 156 H, Calcium 9.1, Total Bilirubin 1.00, AST 18, ALT 92 H, Alkaline Phosphatase 96, Total Protein 6.2 L, Albumin 2.7 L, Globulin 3.5, Albumin/Globulin Ratio 0.8 L 05/06/21 06:55: WBC 8.1, RBC 4.28, Hgb 11.4 L, Hct 35.8 L, MCV 83.6, MCH 26.6 L, MCHC 31.8 L, RDW Std Deviation 41.1, RDW Coeff of Finesse 13.4, Plt Count 147 L, MPV 13.0 H, Immature Gran % (Auto) 0.400, Neut % (Auto) 59.9, Lymph % (Auto) 27.1, [place] % (Auto) 10.1 H, Eos % (Auto) 2.3, Baso % (Auto) 0.2, Absolute Neuts (auto) 4.9, Absolute Lymphs (auto) 2.20, Nucleated RBC % 0 Micro: Microbiology 05/02/21 10:35 Urine, Clean Catch Urine Culture - Final Mixed Gram Positive Organisms Physical Exam Const alert, oriented x3 and no apparent distress General Appearance: cooperative HEENT normocephalic and moist oral mucous membranes Eyes PERRL, EOMs intact bilaterally and conjunctivae normal Neck supple and no JVD Resp normal respiratory effort, no retractions, no use of accessory muscles and clear to auscultation bilaterally Auscultation: Negative for crackles, rales, rhonchi or wheezes Cardio regular rate, regular rhythm, S1 normal heart sound, S2 normal heart sound and no murmurs GI soft to palpation, non-tender and non-distended; Negative for hepatosplenomegaly Palpation: tender Extremity no clubbing, cyanosis or edema Skin no rashes or lesions noted Neuro no focal motor deficits and no sensory deficits noted Psych affect normal Appearance: appropriate Assessment & Plan Assessment/Plan (1) Elevated liver enzymes: PLAN: 1. Acute pancreatitis ?Secondary to choledocholithiasis. Admitted to regular nursing floor currently being managed conservatively with consultation placed to GI . Dr. Rich's notes and recommendations reviewed -05/04/2021: Lipase is trending down and was never severely elevated and there is no CT findings of pancreatitis, possibility of gastroenteritis as a cause of her discomfort. MRCP was unremarkable. -05/05/2021: Plan to advance her diet today to make sure she could tolerate it and then after morning rounds she had a large bowel movement that the nurse was able to evaluate and noted blood. Made GI aware. -05/06/2021: Tolerating a diet without significant discomfort. Continues to have some diarrhea with intermittent bleed though her hemoglobin is stable. If her hemoglobin remained stable can possibly plan for discharge in the morning if okay with GI 2. 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 AST back to normal ALT remains slightly elevated 3. Diabetes mellitus type II -patient's oral hypoglycemics held. Placed on long acting insulin, Accu-Cheks a.c. and at bedtime and covered with sliding scale insulin 4. Hypertension - Blood pressure controlled, home medications continued with dose adjustment as needed 5. Mild cognitive impairment ?Patient is on Aricept 6. Dyslipidemia -Patient is on statin therapy, continued at home dose 7. Bladder mass ?Patient to follow-up with urology following discharge 05/04/2021: Patient aware of the need for urology follow-up DVT: SCDs Charges/Coding Visit Charges Inpatient E&M: 52015 Subs Hosp L2
[2021-05-06] MEDS: Pantoprazole Sodium 40 MG Tablet PO (09:53)
[2021-05-06] MEDS: amLODIPine 10 MG Tablet PO (09:53)
[2021-05-06] MEDS: Losartan Potassium 100 MG Tablet PO (09:53)
[2021-05-06] MEDS: FLUoxetine 20 MG Capsule 40 MG PO (09:54)
[2021-05-06] MEDS: buPROPion (XL) 150 MG TABLET.XL PO (09:54)
--- NOTE | 2021-05-06 10:57 | PCM.DC ---
Discharge Instructions Diet Discharge Diet: Low fat / Low cholesterol and Carb Control Diet Activity Discharge Activity: Return to Normal Activity Dressing / Incision Call your doctor if you observe: Fever of 101 or Higher, Shortness of breath, Dizziness, Fainting spells, Swelling in the ankles, Chest pain and Increased palpitations (irregular heartbeat) Follow Up Care Test Results: Test results from this visit will be discussed in further detail at your follow-up appointment, if applicable. Discharge Plan Admission Admit Date/Time: 05/02/21 14:25 Attending Provider: Lars Pelletier Primary Care Provider: Dhiraj Julian Discharge Orders/Prescriptions Prescriptions: Continued valsartan 320 mg tablet 320 mg PO DAILY RF: 0 tolterodine 2 MG capsule,extended release 24hr 2 mg PO QHS RF: 0 atorvastatin 40 MG tablet 40 mg PO QHS RF: 0 gabapentin 300 MG capsule 300 mg PO QHS RF: 0 Januvia 100 MG tablet 100 mg PO DAILY RF: 0 magnesium 250 mg Tablet 250 mg PO DAILY RF: 0 fluoxetine 40 mg capsule 40 mg PO DAILY RF: 0 omeprazole 40 mg Capsule,Delayed Release(Dr/Ec) 40 mg PO DAILY RF: 0 amlodipine 10 mg tablet 10 mg PO DAILY RF: 0 metformin 1,000 mg tablet 1,000 mg PO BID RF: 0 hydrochlorothiazide 12.5 mg capsule 12.5 mg PO DAILY RF: 0 bupropion HCl 150 mg tablet extended release 24 hr 150 mg PO DAILY RF: 0 donepezil 5 mg tablet 5 mg PO QHS RF: 0 donepezil 10 mg tablet 10 mg PO QHS RF: 0 ondansetron 4 mg tablet,disintegrating 4 mg PO Q8H PRN PRN (Reason: Nausea) RF: 0 Referrals / Follow Up: Antonio Rich DO [STAFF PHYSICIAN] - Within 1 Month Dhiraj Julian MD [Primary Care Provider] - Within 1 Week Disposition Disposition (needs filled in before D/C Order can be placed): Home, Self Care
--- NOTE | 2021-05-06 11:04 | DS.PCM_ITS ---
Providers Date of Admission: 05/02/21 Primary Care Physician: Dr. Dhiraj Julian MD Consultations 05/02/21 15:51 Consult: Gastroenterology Routine Consulting Provider: Fab[facility] G[facility] Reason for Consult: pancreatitis EMERGENT Consult: No MD Notified: Yes Date Notified: 05/02/21 Time Notified: 14:31 Method of Notification: Verbal Reason For Visit: ELEVATED LFT NAUSEA VOMITING Diagnosis Discharge Diagnosis (1) Elevated liver enzymes: Status: Acute Code(s): R74.8 - Abnormal levels of other serum enzymes Medications at Discharge Home Medications atorvastatin 40 mg PO QHS 02/14/14 gabapentin 300 mg PO QHS 02/14/14 tolterodine 2 mg PO QHS 02/14/14 Januvia 100 mg PO DAILY 04/06/18 magnesium 250 mg PO DAILY 11/14/20 valsartan 320 mg tablet 320 mg PO DAILY tab 04/10/21 amlodipine 10 mg PO DAILY 05/02/21 bupropion HCl 150 mg PO DAILY 05/02/21 donepezil 5 mg PO QHS 05/02/21 donepezil 10 mg PO QHS 05/02/21 fluoxetine 40 mg PO DAILY 05/02/21 hydrochlorothiazide 12.5 mg PO DAILY 05/02/21 metformin 1,000 mg PO BID 05/02/21 omeprazole 40 mg PO DAILY 05/02/21 ondansetron 4 mg PO Q8H PRN PRN 05/02/21 Hospital Course Operations None Procedures None Summary of Care Provided Minutes Spent on Discharge: 45 Hospital Course: Per HPI: DILCIA HENRY, is a 81 F who presents to the emergency room at [facility] with a chief complaint of mid abdominal pain along with nausea and dry heaves, she has intermittent vomiting also but has not had vomiting over the past 2 days. Patient is following up with Dr. Rich the electric refrigerator preparer as an outpatient. Patient denies any diarrhea or blood in her stool. Work-up in the emergency room included labs which showed elevated liver enzymes-these have been elevated before on her recent visit to the emergency room but are now decreasing. CT of the abdomen and pelvis again shows an area in the bladder concerning for mass, no definite signs of pancreatitis was noted on the CT scan. Urine has 10-25 white cells. Lipase is elevated at 594. Creatinine and BUN are slightly elevated at [address] Rich was contacted by the emergency room physician, he was concerned about a possible diverticular near the head of the pancreas and he would like an MRCP ordered on the patient if she is admitted. Patient will be admitted to [facility] for pancreatitis and persistent nausea and vomiting. Hospital Course: 1. Acute pancreatitis ?Secondary to choledocholithiasis. Admitted to regular nursing floor currently being managed conservatively with consultation placed to GI . Dr. Rich's notes and recommendations reviewed -05/04/2021: Lipase is trending down and was never severely elevated and there i s no CT findings of pancreatitis, possibility of gastroenteritis as a cause of her discomfort. MRCP was unremarkable. -05/05/2021: Plan to advance her diet today to make sure she could tolerate it and then after morning rounds she had a large bowel movement that the nurse was able to evaluate and noted blood. Made GI aware. -05/06/2021: Tolerating a diet without significant discomfort. Continues to have some diarrhea with intermittent bleed though her hemoglobin is stable. In discussion with her and with GI, GI is okay with her being discharged today with outpatient follow-up. She wants to go home today. She is tolerating the diet as discussed above. I discussed with her the plan for discharge and she expressed understanding of the risk and benefits of going home and wants to go home. 2. 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 AST back to normal ALT remains slightly elevated 3. Diabetes mellitus type II -patient's oral hypoglycemics held. Placed on long acting insulin, Accu-Cheks a.c. and at bedtime and covered with sliding scale insulin 4. Hypertension - Blood pressure controlled, home medications continued with dose adjustment as needed 5. Mild cognitive impairment ?Patient is on Aricept 6. Dyslipidemia -Patient is on statin therapy, continued at home dose 7. Bladder mass ?Patient to follow-up with urology following discharge 05/04/2021: Patient aware of the need for urology follow-up Physical Exam Const alert, oriented x3 and no apparent distress General Appearance: cooperative HEENT normocephalic and moist oral mucous membranes Eyes PERRL, EOMs intact bilaterally and conjunctivae normal Neck supple and no JVD Resp normal respiratory effort, no retractions, no use of accessory muscles and clear to auscultation bilaterally Auscultation: Negative for crackles, rales, rhonchi or wheezes Cardio regular rate, regular rhythm, S1 normal heart sound, S2 normal heart sound and no murmurs GI soft to palpation, non-tender and non-distended; Negative for hepatosplenomegaly Extremity no clubbing, cyanosis or edema Skin no rashes or lesions noted Neuro no focal motor deficits and no sensory deficits noted Psych affect normal Appearance: appropriate Weight / BMI Weight Weight: 135 lb Body Mass Index (BMI) 23.9 ABG / Lab / Microbiology Data Result Diagrams: 05/06/21 06:55 05/06/21 06:55 Laboratory: Laboratory Results - last 24 hr 05/05/21 12:02: POC Glucose 149 H 05/05/21 16:46: POC Glucose 185 H 05/05/21 22:30: POC Glucose 144 H 05/06/21 06:15: POC Glucose 149 H 05/06/21 06:55: Sodium 141, Potassium 3.7, Chloride 107, Carbon Dioxide 26.0, Anion Gap 8, BUN 10, Creatinine 0.85, Estim Creat Clear Calc 41.75, Est GFR (MDRD) Af Amer 83, Est GFR (MDRD) Non-Af 69, BUN/Creatinine Ratio 11.8, Glucose 156 H, Calcium 9.1, Total Bilirubin 1.00, AST 18, ALT 92 H, Alkaline Phosphatase 96, Total Protein 6.2 L, Albumin 2.7 L, Globulin 3.5, Albumin/Globulin Ratio 0.8 L 05/06/21 06:55: WBC 8.1, RBC 4.28, Hgb 11.4 L, Hct 35.8 L, MCV 83.6, MCH 26.6 L, MCHC 31.8 L, RDW Std Deviation 41.1, RDW Coeff of Finesse 13.4, Plt Count 147 L, MPV 13.0 H, Immature Gran % (Auto) 0.400, Neut % (Auto) 59.9, Lymph % (Auto) 27.1, Sharkey % (Auto) 10.1 H, Eos % (Auto) 2.3, Baso % (Auto) 0.2, Absolute Neuts (auto) 4.9, Absolute Lymphs (auto) 2.20, Nucleated RBC % 0 Microbiology: Microbiology 05/02/21 10:35 Urine, Clean Catch Urine Culture - Final Mixed Gram Positive Organisms D/C Instructions Discharge Diet: Low fat / Low cholesterol and Carb Control Diet Call your doctor if you observe: Fever of 101 or Higher, Shortness of breath, Dizziness, Fainting spells, Swelling in the ankles, Chest pain and Increased palpitations (irregular heartbeat) Meaningful Use Info Meaningful Use Diagnoses (Choose all that apply): None applicable Discharge Plan Admission Admit Date/Time: 05/02/21 14:25 Attending Provider: Lars Pelletier Primary Care Provider: Dhiraj Julian Discharge Orders/Prescriptions Prescriptions: Continued valsartan 320 mg tablet 320 mg PO DAILY RF: 0 tolterodine 2 MG capsule,extended release 24hr 2 mg PO QHS RF: 0 atorvastatin 40 MG tablet 40 mg PO QHS RF: 0 gabapentin 300 MG capsule 300 mg PO QHS RF: 0 Januvia 100 MG tablet 100 mg PO DAILY RF: 0 magnesium 250 mg Tablet 250 mg PO DAILY RF: 0 fluoxetine 40 mg capsule 40 mg PO DAILY RF: 0 omeprazole 40 mg Capsule,Delayed Release(Dr/Ec) 40 mg PO DAILY RF: 0 amlodipine 10 mg tablet 10 mg PO DAILY RF: 0 metformin 1,000 mg tablet 1,000 mg PO BID RF: 0 hydrochlorothiazide 12.5 mg capsule 12.5 mg PO DAILY RF: 0 bupropion HCl 150 mg tablet extended release 24 hr 150 mg PO DAILY RF: 0 donepezil 5 mg tablet 5 mg PO QHS RF: 0 donepezil 10 mg tablet 10 mg PO QHS RF: 0 ondansetron 4 mg tablet,disintegrating 4 mg PO Q8H PRN PRN (Reason: Nausea) RF: 0 Referrals / Follow Up: Rose Cooper MD [STAFF PHYSICIAN] - Within 1 Month Antonio Rich DO [STAFF PHYSICIAN] - Within 1 Month Dhiraj Julian MD [Primary Care Provider] - Within 1 Week Disposition Disposition (needs filled in before D/C Order can be placed): Home, Self Care Charges/Coding Visit Charges Inpatient E&M: 43251 Disch Hosp
== END 2021-05-06 11:42 | disposition home or self-care (01) ==
LOC: ED 13:50 → MS3 14:27
PROVIDERS: Internal Medicine; Admitting Provider Internal Medicine; Emergency Provider Emergency Medicine; PCP Family Medicine; Visit Provider Family Medicine
DX: K80.50 Calculus of bile duct without cholangitis or cholecystitis without obstruction (principal); K85.90 Acute pancreatitis without necrosis or infection, unspecified; Z23 Encounter for immunization; M19.90 Unspecified osteoarthritis, unspecified site; E11.40 Type 2 diabetes mellitus with diabetic neuropathy, unspecified; I10 Essential (primary) hypertension; R91.8 Other nonspecific abnormal finding of lung field; R74.8 Abnormal levels of other serum enzymes; N32.9 Bladder disorder, unspecified; K57.10 Diverticulosis of small intestine without perforation or abscess without bleeding; E78.5 Hyperlipidemia, unspecified; G31.84 Mild cognitive impairment of uncertain or unknown etiology; R00.1 Bradycardia, unspecified; Z79.899 Other long term (current) drug therapy; Z79.84 Long term (current) use of oral hypoglycemic drugs; Z87.891 Personal history of nicotine dependence; Z87.440 Personal history of urinary (tract) infections
CPT/HCPCS: 36415; 74177; 74181; 80048; 80053; 81001; 82962; 83605; 83690; 83735; 84100; 84484; 85025; 87086; 87088; 93005; 96361; 96365; 96366; 96372; 96375; 96376; 99218; 99284; J7030; Q9967; 90686; A4216; G0378; J2405

== ENCOUNTER → 2021-06-02 18:12 | Outpatient (CLI) | payer MEDICARE, OTHER, SELFPAY ==
--- NOTE | 2021-06-02 16:00 | CYSPIN_PTH ---
PATIENT: DILCIA HENRY LOC: [facility] U#:[id number] AGE/SX: 85/F ROOM: RE06/02/[address]: Dr. Rose Cooper MD : 1940 BED: DIS: SPEC #: [id number] RECD: 06/05/21 08:50 STATUS: KINA DAIJA #: [id number] KALEE: 06/02/21 16:[address]: Rose Cooper DEPT: CYTOLOGY RECD BY: Ava Segundo ENTERED: 06/05/21 08:50 SP TYPE: CYSPIN FL OTHR DR: Dr. Dhiraj Julian MD Tissues: Urine Procedures: Pap Stain (control) Special Stain Group II Cytospin Fluid HEADER OPERATION: Not noted PRE-OP DIAGNOSIS: Gross hematuria TISSUE SUBMITTED: Urine for cytology DIAGNOSIS CYTOLOGY Urine for cytology (cytospin): Positive for malignant cells consistent with urothelial carcinoma. AM:topher 06/05/2021 COMMENT Case has been reviewed in consultation with Dr. Torres who concurs with the above diagnosis. IDC:SJ CYTOLOGY STUDY Slides are reviewed. CYTOLOGY GROSS Received is 20 ml of yellow cloudy fluid labeled with the patient's name and and designated per the requisition as urine. Submitted for cytology preparation. / topher 06/05/2021 TC:0 CPT: 46447
[2021-06-02 18:14] LABS: Cytology, Body Fluid / CSF SEE PATHOLOGY REPORT
== END ==
PROVIDERS: PCP Family Medicine; Visit Provider Urology
DX: R31.0 Gross hematuria (principal)
CPT/HCPCS: 88108; 88313

== ENCOUNTER 2021-07-05 07:16 | Day surgery (SDC) | payer MEDICARE, OTHER, SELFPAY ==
[2021-07-05] VITALS (9 sets, daily range): BP systolic 113–146; BP diastolic 55–74; PULSE 60–100; RESP 16–18; TEMP 36.1–36.6; O2SAT 91–100; BMI 23.8
[2021-07-05 08:20] LABS: Bedside Glucose 151 mg/dL (70-110)
[2021-07-05] MEDS: Lactated Ringers 1,000 ML 15 ML IV (08:32)
--- NOTE | 2021-07-05 08:58 | DCINST_ITS ---
Discharge Instructions Diet Discharge Diet: No restrictions Activity Discharge Activity: Return to Normal Activity and May Not Drive (while taking narcotic pain medications.) Dressing / Incision Call your doctor if you observe: Fever of 101 or Higher Follow Up Care Please Follow Up With: Kalyan Valencia MD When: Call [phone] for an appointment Test Results: Test results from this visit will be discussed in further detail at your follow-up appointment, if applicable. Discharge Plan Admission Primary Reason for Your Visit: Resection of bladder tumor Attending Provider: Kalyan Valencia Primary Care Provider: Dhiraj Julian Discharge Orders/Prescriptions Prescriptions: New ciprofloxacin HCl [Cipro] 500 mg tablet 500 mg PO BID Qty: 10 RF: 0 Continued valsartan 320 mg tablet 320 mg PO DAILY RF: 0 ondansetron 4 mg tablet,disintegrating 4 mg PO Q8H PRN PRN (Reason: Nausea) Qty: 60 RF: 3 tolterodine 2 MG capsule,extended release 24hr 2 mg PO QHS RF: 0 atorvastatin 40 MG tablet 40 mg PO QHS RF: 0 gabapentin 300 MG capsule 300 mg PO QHS RF: 0 Januvia 100 MG tablet 100 mg PO DAILY RF: 0 magnesium 250 mg Tablet 250 mg PO DAILY RF: 0 fluoxetine 40 mg capsule 40 mg PO DAILY RF: 0 amlodipine 10 mg tablet 10 mg PO DAILY RF: 0 metformin 1,000 mg tablet 1,000 mg PO BID RF: 0 hydrochlorothiazide 12.5 mg capsule 12.5 mg PO DAILY RF: 0 bupropion HCl 150 mg tablet extended release 24 hr 150 mg PO DAILY RF: 0 donepezil [Aricept] 5 mg tablet 5 mg PO QHS RF: 0 donepezil 10 mg tablet 10 mg PO QHS RF: 0 Probiotic 10 billion cell Capsule 10,000 mmu cells PO DAILY RF: 0 metoclopramide HCl [Reglan] 5 mg tablet 5 mg PO TID PRN (Reason: Nausea) RF: 0 hydrocortisone 2.5 % cream 1 applic topical BID PRN (Reason: Rash) RF: 0 ondansetron HCl [Zofran] 4 mg tablet 4 mg PO Q8H Qty: 21 RF: 0 Other Ambulatory Orders: Hemoglobin A1c (Routine) Timeframe: [id number] Facility: [facility] - Location: Laboratory Ordered By: Dr. Perico DeHorta Referrals / Follow Up: Kalyan Valencia MD [STAFF PHYSICIAN] - Dhiraj Julian MD [Primary Care Provider] - Disposition Disposition (needs filled in before D/C Order can be placed): Home, Self Care
--- NOTE | 2021-07-05 08:58 | PCM.HP.STD ---
HPI - General HPI Narrative DILCIA HENRY, is a 81 F who presents for resection of a bladder tumor [facility] Medical History (Updated 06/28/21 @ 11:13 by Floresita Alejandra) Ambulates with cane Arthritis Back pain Cancer Carpal tunnel syndrome Depression Diabetes Dietary restriction Fecal incontinence GI bleeding High cholesterol History of hiatal hernia History of pain when walking History of stress test Hx of cataract Hypertension Hypertension Injury of back Kidney stone on left side Kidney stones Liver cirrhosis Liver lesion, right lobe Low back problem Migraine headache Multiple lung nodules Nausea Non-smoker Normal stress echocardiogram Open wound Pancreatitis Peripheral neuropathy Type II diabetes mellitus Wears glasses Home Medications atorvastatin 40 mg PO QHS 02/14/14 [History Last Taken 10 Days Ago ~04/22/21] gabapentin 300 mg PO QHS 02/14/14 [History Last Taken 05/01/21] tolterodine 2 mg PO QHS 02/14/14 [History Last Taken 05/01/21] Januvia 100 mg PO DAILY 04/06/18 [History Last Taken 04/29/21] magnesium 250 mg PO DAILY 11/14/20 [History Last Taken 04/25/21] valsartan 320 mg tablet 320 mg PO DAILY tab 04/10/21 [History Last Taken 07/05/21 06:30] amlodipine 10 mg PO DAILY 05/02/21 [History Last Taken 07/05/21 06:30] bupropion HCl 150 mg PO DAILY 05/02/21 [History Last Taken 10 Days Ago ~04/22/21] donepezil 10 mg PO QHS 05/02/21 [History Last Taken Unknown] donepezil [Aricept] 5 mg PO QHS 05/02/21 [History Last Taken 05/01/21] fluoxetine 40 mg PO DAILY 05/02/21 [History Last Taken 10 Days Ago ~04/22/21] hydrochlorothiazide 12.5 mg PO DAILY 05/02/21 [History Last Taken 10 Days Ago ~04/22/21] metformin 1,000 mg PO BID 05/02/21 [History Last Taken 05/01/21] ondansetron HCl 4 mg tablet 4 mg PO Q8H #21 tab 06/01/21 [Rx Last Taken Unknown] ondansetron 4 mg disintegrating tablet 4 mg PO Q8H PRN PRN #60 tab 06/12/21 [Rx Last Taken Unknown] Probiotic 10,000 mmu cells PO DAILY 06/28/21 [History Last Taken Unknown] hydrocortisone 1 applic TOPICAL BID PRN 06/28/21 [History Last Taken Unknown] metoclopramide HCl [Reglan] 5 mg PO TID PRN 06/28/21 [History Last Taken Unknown] ciprofloxacin HCl [Cipro] 500 mg PO BID #10 tab 07/05/21 [Rx Last Taken Unknown] Allergy/AdvReac Type Severity Reaction Status Date / Time acetaminophen [From Vicodin] Allergy Unknown Verified 07/05/21 08:01 codeine Allergy Anaphylaxis Verified 07/05/21 08:01 hydrocodone bitartrate Allergy Unknown Verified 07/05/21 08:01 [From Vicodin] zolpidem tartrate AdvReac Other Verified 07/05/21 08:01 [From Ambien] CRAB Allergy Swollen Uncoded 07/05/21 08:01 lymph glands Family History Grandfather Parkinson disease Other CVA (cerebral vascular accident) Surgical History (Updated 06/28/21 @ 11:13 by Floresita Alejandra) H/O: hysterectomy History of 2 sections History of back surgery History of cholecystectomy Hx of detached retina repair Hx of total knee replacement Social History Smoking Status: Never smoker how long ago did patient quit smoking: stoped in 1969 used when she was in her teens alcohol intake: never substance use type: does not use Vital Signs Vital Signs Vital Signs: 07/05/21 08:08 07/05/21 08:14 Temperature 97.8 F Temperature Source Temporal Pulse Rate 62 Respiratory Rate 16 Respiratory Pattern Normal Blood Pressure 146/74 H Blood Pressure Mean 98 Blood Pressure Source Monitor Blood Pressure Position Semi-Fowlers Blood Pressure Location Left Arm Pulse Ox 100 Oxygen Delivery Method Room Air Weight Weight: 61.1 kg Body Mass Index (BMI) 23.8 Results Lab / Micro Data Labs: Laboratory Results - last 24 hr 07/05/21 07:52: POC Glucose 151 H
--- NOTE | 2021-07-05 09:10 | BLB_PTH ---
PATIENT: DILCIA HENRY LOC: [facility] [place] U#:[id number] AGE/SX: 81/F ROOM: RE07/05/[address]: Dr. Kalyan Valencia MD : 1940 BED: DIS: 07/05/2021 SPEC #: [id number] RECD: 07/05/21 12:07 STATUS: KINA CHOE #: [id number] KALEE: 07/05/21 09:[address]: Kalyan Valencia DEPT: SURGICAL PATHOLOGY RECD BY: Ava Segundo ENTERED: 07/05/21 13:23 SP TYPE: TURB OTHR DR: Dr. Dhiraj Julian MD Tissues: Urinary bladder, NOS Procedures: Surgery Specimen Level V HEADER OPERATION: Cysto, transurethral resection bladder tumor PRE-OP DIAGNOSIS: Acute neoplasm of bladder TISSUE SUBMITTED: Bladder tumor MICROSCOPIC DIAGNOSIS Urinary bladder tumor, transurethral resection: Papillary urothelial carcinoma. See synoptic report below. AM:topher 07/06/2021 COMMENT BLADDER CANCER (TUR) SUMMARY Procedure: Transurethral resection of bladder (TURBT) Tumor site: Not specified Histologic type: Papillary urothelial carcinoma Histologic grade: 2/3 Tumor configuration: Papillary Muscularis propria presence: Present and free of carcinoma. Lymphvascular invasion: Not identified Tumor extension: Confined to urothelium Additional pathologic findings: Mild chronic inflammation. The above summary is in compliance with [employer] (CAP) Cancer Protocols Checklist and [place] [employer] Committee on Cancer (AJCC), Staging Manual, 8th Ed. MICROSCOPIC DESCRIPTION Slides are reviewed. GROSS DESCRIPTION Received in fixative is one container labeled with the patient's name and designated bladder tumor. The specimen consists of multiple irregular and friable fragments of pink-donnelly soft tissue that in aggregate measure 6.5 x 5.5 x 0.4 cm. The specimen is totally submitted in eight cassettes. / AM:topher 07/05/21 TC:0 CPT: 51184
--- NOTE | 2021-07-05 09:59 | PCM.OPRPT ---
Report of Operation Date of Procedure: 07/05/21 Pre-Operative Diagnosis: Large bladder tumor Post-Operative Diagnosis: Large bladder tumor at the bladder neck trigone on the right side and anterior bladder neck Surgery/Procedure Performed:: Transurethral resection of a very large bladder tumor greater than 5 cm in size instillation of mitomycin-C in the PACU Description of Surgical Findings:: 81-year-old female who had episode of gross hematuria and CT scan was done demonstrated the mass within the bladder she comes now for resection of this tumor that appears to be bladder cancer so today we can proceed with a complete resection and instillation of mitomycin-C. Patient was taken back to the operating room at the smooth induction of general anesthesia she was placed in dorsolithotomy position. The urethra vaginal area prepped and draped used to fashion went into the bladder with a 21 [place] rigid cystourethroscope immediately there was papillary tumor right at the entrance of the bladder the tumor was coming from the bladder neck area circumferentially mostly on the right side the tumor did not involve the left ureteral orifice the tumor was covering the right ureteral orifice and going to the right lateral wall and in the anterior bladder. Photographs were taken to document the tumor I then went in with a resectoscope and started resecting at the midline working my way laterally as I was resected and identified the right ureteral orifice this was resected and open no stent was placed. I continued the resection working my way laterally to the right side pulling back to the bladder neck to resect the tumor is a resectable tumor we went to the lateral wall and eventually work my way to the anterior wall with the tumor extended all the way up to the anterior wall once the tumor was completely resected cauterized bleeders as I went along all the chips of the tumor that was resected was removed out of the bladder it did not appear to be muscle invasive but it certainly appeared to be may be invasive into the lamina propria but I did not feel like it was invasive into the muscle cauterized extensively to obtain hemostasis the right ureter orifice was resected but open no stent was placed and then catheter was used to drain the bladder and then mitomycin C was placed in the PACU, for patient to hold for 1 hour Surgeon: melissa Type of Anesthesia: General Drains: none Admit VTE Documentation VTE Present on Admission: No VTE Mechan Device Prophylaxis: SCD's VTE Pharm Prophylaxis ordered?: No
[2021-07-05] MEDS: Lactated Ringers 1,000 ML 75 ML IV (10:38)
== END 2021-07-05 14:14 | disposition home or self-care (01) ==
LOC: SDC 07:20 → AC 07:27
PROVIDERS: PCP Family Medicine; Referring Provider Urology; Visit Provider Urology
PROC: 0T5B8ZZ Destruction of Bladder, Via Natural or Artificial Opening Endoscopic (ICD-10-PCS; CPT 51720; principal; 2021-07-05 09:00)
DX: C67.5 Malignant neoplasm of bladder neck (principal); E78.00 Pure hypercholesterolemia, unspecified; E11.42 Type 2 diabetes mellitus with diabetic polyneuropathy; R91.8 Other nonspecific abnormal finding of lung field; I10 Essential (primary) hypertension; M19.90 Unspecified osteoarthritis, unspecified site; F32.A Depression, unspecified; Z79.899 Other long term (current) drug therapy; Z79.84 Long term (current) use of oral hypoglycemic drugs; Z87.891 Personal history of nicotine dependence
CPT/HCPCS: 00912; 51720; 52240; 82962; 88307; J7120; J2405; J3490; J9280

== ENCOUNTER 2021-07-08 20:51 | Emergency (ER) | payer MEDICARE, OTHER, SELFPAY ==
[2021-07-08 20:52] VITALS: BP 147/70; PULSE 93; RESP 16; TEMP 36.7; O2SAT 97; BMI 23.4
--- NOTE | 2021-07-08 21:04 | EX.ED.DYSGE1 ---
HPI History of Present Illness Chief Complaint: Complaint Informant: patient Onset/Context/Timing Onset: Today Context: Gradual Onset Timing: Intermittent Quality: Leaking around catheter, bloody urine Current Severity: Moderate Maximum Severity: Moderate Worsened by: Nothing Relieved by: Nothing Associated Symptoms Associated Symptoms: Nothing, no fevers, chills, abdominal pain, nausea, vomiting Narrative Narrative: Patient had a bladder tumor resection several days ago, and was discharged with an 18 F Espinal catheter. Patient states today, she has had more hematuria with some clots, and now there is no flow into the bag but there is leaking around the catheter. [facility] Medical History Ambulates with cane Arthritis Back pain Cancer Carpal tunnel syndrome Depression Diabetes Dietary restriction Fecal incontinence GI bleeding High cholesterol History of hiatal hernia History of pain when walking History of stress test Hx of cataract Hypertension Hypertension Injury of back Kidney stone on left side Kidney stones Liver cirrhosis Liver lesion, right lobe Low back problem Migraine headache Multiple lung nodules Nausea Non-smoker Normal stress echocardiogram Open wound Pancreatitis Peripheral neuropathy Type II diabetes mellitus Wears glasses Home Medications atorvastatin 40 mg PO QHS 02/14/14 [History Last Taken 10 Days Ago ~04/22/21] gabapentin 300 mg PO QHS 02/14/14 [History Last Taken 05/01/21] tolterodine [Detrol LA] 2 mg PO QHS 02/14/14 [History Last Taken 05/01/21] Januvia 100 mg PO DAILY 04/06/18 [History Last Taken 04/29/21] magnesium 250 mg PO DAILY 11/14/20 [History Last Taken 04/25/21] valsartan 320 mg tablet 320 mg PO DAILY tab 04/10/21 [History Last Taken 07/05/21 06:30] amlodipine 10 mg PO DAILY 05/02/21 [History Last Taken 07/05/21 06:30] bupropion HCl 150 mg PO DAILY 05/02/21 [History Last Taken 10 Days Ago ~04/22/21] donepezil 10 mg PO QHS 05/02/21 [History Last Taken Unknown] fluoxetine 40 mg PO DAILY 05/02/21 [History Last Taken 10 Days Ago ~04/22/21] hydrochlorothiazide 12.5 mg PO DAILY 10/19/21 [History Last Taken 10 Days Ago ~04/22/21] metformin 1,000 mg PO BID 05/02/21 [History Last Taken 05/01/21] ondansetron HCl 4 mg tablet 4 mg PO Q8H #21 tab 06/01/21 [Rx Last Taken Unknown] ondansetron 4 mg disintegrating tablet 4 mg PO Q8H PRN PRN #60 tab 06/12/21 [Rx Last Taken Unknown] Probiotic 10,000 mmu cells PO DAILY 06/28/21 [History Last Taken Unknown] hydrocortisone 1 applic TOPICAL BID PRN 06/28/21 [History Last Taken Unknown] metoclopramide HCl [Reglan] 5 mg PO TID PRN 06/28/21 [History Last Taken Unknown] ciprofloxacin HCl [Cipro] 500 mg PO BID #10 tab 07/05/21 [Rx Last Taken Unknown] Allergy/AdvReac Type Severity Reaction Status Date / Time acetaminophen [From Vicodin] Allergy Unknown Verified 07/08/21 20:52 codeine Allergy Anaphylaxis Verified 07/08/21 20:52 hydrocodone bitartrate Allergy Unknown Verified 07/08/21 20:52 [From Vicodin] zolpidem tartrate AdvReac Other Verified 07/08/21 20:52 [From Ambien] CRAB Allergy Swollen Uncoded 07/08/21 20:52 lymph glands Family History Grandfather Parkinson disease Other CVA (cerebral vascular accident) Surgical History (Updated 06/28/21 @ 11:13 by Floresita Alejandra) H/O: hysterectomy History of 2 sections History of back surgery History of cholecystectomy Hx of detached retina repair Hx of total knee replacement Social History Smoking Status: Never smoker how long ago did patient quit smoking: stoped in 1970 used when she was in her teens alcohol intake: never substance use type: does not use ROS ROS ED Constitutional Constitutional ED: Denies chills or fever(s) Eyes Eyes: Denies change in vision or diplopia ENT ENT ED: Denies rhinorrhea or sore throat Cardiovascular Cardiovascular: Denies chest pain or palpitations Respiratory/Chest Respiratory/Chest: Denies cough or dyspnea Gastrointestinal Gastrointestinal: Denies abdominal pain, diarrhea, nausea or vomiting Genitourinary Genitourinary ED: Reports as per HPI and hematuria; Denies dysuria Musculoskeletal Musculoskeletal: Denies back pain or neck pain Integumentary Denies abscess or rash Neurologic Neurologic: Denies headache(s), paresthesias or weakness Psychiatric Psychiatric: Denies anxiety or suicidal thoughts EXAM Physical Exam Const Vital Signs: 07/08/21 20:52 07/08/21 21:20 Temperature 98.1 F 98.1 F Temperature Source Temporal Temporal Pulse Rate 93 93 Respiratory Rate 16 16 Blood Pressure 147/70 H 147/70 H Blood Pressure Mean 95 95 Pulse Ox 97 97 Oxygen Delivery Method Room Air Room Air Positive well nourished and well developed General Appearance ED: well developed and NAD HEENT Reports moist mucous membranes normocephalic and atraumatic Eyes PERRL and EOMs intact bilaterally Neck full ROM and supple Resp normal respiratory effort GI non-tender and non-distended Auscultation: normoactive bowel sounds Palpation: soft Narrative: Espinal catheter in place, hematuria present, there is leaking of clear red urine around the catheter, and a little in the Espnial bag. Extremity normal to inspection General Extremety ED: Negative for edema, pulses abnormal or tenderness General Extremity: Negative for edema or pulses abnormal Neuro oriented x3, CN's II-XII intact bilaterally and no sensory deficits noted Sensorium / Orientation: awake and alert Motor Exam: strength 5/5 throughout Skin no rashes or lesions noted and no wounds MDM MDM MDM Narrative Medical decision making narrative: Discussed with Dr. Valencia, he recommends replacing the catheter with a 20 Arabic without a triple-lumen, flushing the catheter, which is what we did. This resulted in good amount of urine that came out she felt better, urine flowing through the catheter with clots after this, it was pink after we irrigated, it then became a little darker but it is flowing well and the patient wants to go home which I am comfortable with. Will follow up with urology after the weekend. Discharge Plan Triage Chief Complaint: Complaint ED Provider: Osito Rizvi Dx/Rx/DC Orders Clinical Impression: Acute urinary retention, Hematuria, Obstructed Espinal catheter Instructions: ED Espinal Catheter, Care Prescriptions: No Action valsartan 320 mg tablet 320 mg PO DAILY RF: 0 ondansetron 4 mg tablet,disintegrating 4 mg PO Q8H PRN PRN (Reason: Nausea) Qty: 60 RF: 3 tolterodine [Detrol LA] 2 MG capsule,extended release 24hr 2 mg PO QHS RF: 0 atorvastatin 40 MG tablet 40 mg PO QHS RF: 0 gabapentin 300 MG capsule 300 mg PO QHS RF: 0 Januvia 100 MG tablet 100 mg PO DAILY RF: 0 magnesium 250 mg Tablet 250 mg PO DAILY RF: 0 fluoxetine 40 mg capsule 40 mg PO DAILY RF: 0 amlodipine 10 mg tablet 10 mg PO DAILY RF: 0 metformin 1,000 mg tablet 1,000 mg PO BID RF: 0 hydrochlorothiazide 12.5 mg capsule 12.5 mg PO DAILY RF: 0 bupropion HCl 150 mg tablet extended release 24 hr 150 mg PO DAILY RF: 0 donepezil 10 mg tablet 10 mg PO QHS RF: 0 Probiotic 10 billion cell Capsule 10,000 mmu cells PO DAILY RF: 0 metoclopramide HCl [Reglan] 5 mg tablet 5 mg PO TID PRN (Reason: Nausea) RF: 0 hydrocortisone 2.5 % cream 1 applic topical BID PRN (Reason: Rash) RF: 0 ciprofloxacin HCl [Cipro] 500 mg tablet 500 mg PO BID Qty: 10 RF: 0 ondansetron HCl [Zofran] 4 mg tablet 4 mg PO Q8H Qty: 21 RF: 0 Primary Care Provider: Dhiraj Julian Referrals: Kalyan Valencia MD [STAFF PHYSICIAN] - 3-5 Days if not improving Dhiraj Julian MD [Primary Care Provider] - Disposition Disposition: Home, Self Care
[2021-07-08 21:20] VITALS: BP 147/70; PULSE 93; RESP 16; TEMP 36.7; O2SAT 97
[2021-07-08 22:56] VITALS: BP 132/80; PULSE 78; RESP 18; TEMP 36.7; O2SAT 98
== END 2021-07-08 22:57 | disposition home or self-care (01) ==
PROVIDERS: Emergency Provider Emergency Medicine; PCP Family Medicine
DX: R33.9 Retention of urine, unspecified (principal); R31.9 Hematuria, unspecified; T83.091A Other mechanical complication of indwelling urethral catheter, initial encounter; I10 Essential (primary) hypertension; G43.909 Migraine, unspecified, not intractable, without status migrainosus; M19.90 Unspecified osteoarthritis, unspecified site; E11.40 Type 2 diabetes mellitus with diabetic neuropathy, unspecified; E11.36 Type 2 diabetes mellitus with diabetic cataract; E78.00 Pure hypercholesterolemia, unspecified; Z79.84 Long term (current) use of oral hypoglycemic drugs; Z79.899 Other long term (current) drug therapy
CPT/HCPCS: 51702; 99283; A4216

== ENCOUNTER 2021-07-09 10:30 | Emergency (ER) | payer MEDICARE, OTHER, SELFPAY ==
[2021-07-09 10:32] VITALS: BP 150/75; PULSE 78; RESP 14; TEMP 35.5; O2SAT 95; BMI 23.8
--- NOTE | 2021-07-09 10:44 | EDS_ITS ---
HPI HPI - Female History of Present Illness Chief Complaint: Complaint Informant: patient Pain Current Severity: Mild Maximum Severity: Mild Bleeding Issue: Negative for Vaginal bleeding, Passing clots and Passing tissue Narrative Narrative: 81-year-old female history of bladder cancer for which she just had surgery earlier this week. She had a catheter placed postoperatively. She returned overnight last night was passing blood-tinged urine had the Espinal changed to a 20 Brazilian and now today she is passing no urine. She denies any fever or chills. She is on no blood thinners. Prior similar symptoms: Yes Recent Illness/Hospitalization: Yes PFSH [facility] Medical History Ambulates with cane Arthritis Back pain Cancer Carpal tunnel syndrome Depression Diabetes Dietary restriction Fecal incontinence GI bleeding High cholesterol History of hiatal hernia History of pain when walking History of stress test Hx of cataract Hypertension Hypertension Injury of back Kidney stone on left side Kidney stones Liver cirrhosis Liver lesion, right lobe Low back problem Migraine headache Multiple lung nodules Nausea Non-smoker Normal stress echocardiogram Open wound Pancreatitis Peripheral neuropathy Type II diabetes mellitus Wears glasses Home Medications atorvastatin 40 mg PO QHS 02/14/14 [History Last Taken 10 Days Ago ~04/22/21] gabapentin 300 mg PO QHS 02/14/14 [History Last Taken 05/01/21] tolterodine [Detrol LA] 2 mg PO QHS 02/14/14 [History Last Taken 05/01/21] Januvia 100 mg PO DAILY 04/06/18 [History Last Taken 04/29/21] magnesium 250 mg PO DAILY 11/14/20 [History Last Taken 04/25/21] valsartan 320 mg tablet 320 mg PO DAILY tab 04/10/21 [History Last Taken 07/05/21 06:30] amlodipine 10 mg PO DAILY 05/02/21 [History Last Taken 07/05/21 06:30] bupropion HCl 150 mg PO DAILY 05/02/21 [History Last Taken 10 Days Ago ~04/22/21] donepezil 10 mg PO QHS 05/02/21 [History Last Taken Unknown] fluoxetine 40 mg PO DAILY 05/02/21 [History Last Taken 10 Days Ago ~04/22/21] hydrochlorothiazide 12.5 mg PO DAILY 05/02/21 [History Last Taken 10 Days Ago ~04/22/21] metformin 1,000 mg PO BID 05/02/21 [History Last Taken 05/01/21] ondansetron HCl 4 mg tablet 4 mg PO Q8H #21 tab 06/01/21 [Rx Last Taken Unknown] ondansetron 4 mg disintegrating tablet 4 mg PO Q8H PRN PRN #60 tab 06/12/21 [Rx Last Taken Unknown] Probiotic 10,000 mmu cells PO DAILY 06/28/21 [History Last Taken Unknown] hydrocortisone 1 applic TOPICAL BID PRN 06/28/21 [History Last Taken Unknown] metoclopramide HCl [Reglan] 5 mg PO TID PRN 06/28/21 [History Last Taken Unknown] ciprofloxacin HCl [Cipro] 500 mg PO BID #10 tab 07/05/21 [Rx Last Taken Unknown] Allergy/AdvReac Type Severity Reaction Status Date / Time acetaminophen [From Vicodin] Allergy Unknown Verified 07/09/21 10:32 codeine Allergy Anaphylaxis Verified 07/09/21 10:32 hydrocodone bitartrate Allergy Unknown Verified 07/09/21 10:32 [From Vicodin] zolpidem tartrate AdvReac Other Verified 07/09/21 10:32 [From Ambien] CRAB Allergy Swollen Uncoded 07/09/21 10:32 lymph glands Family History Grandfather Parkinson disease Other CVA (cerebral vascular accident) Surgical History H/O: hysterectomy History of 2 sections History of back surgery History of cholecystectomy Hx of detached retina repair Hx of total knee replacement Social History Smoking Status: Never smoker how long ago did patient quit smoking: stoped in 1970 used when she was in her teens alcohol intake: never substance use type: does not use ROS ROS ED ROS Narrative Denies recent illness. Review of Systems ROS Unobtainable: Denies due to encephalopathy Constitutional Constitutional ED: Denies fever(s) Eyes Eyes: Denies change in vision ENT ENT ED: Denies ear pain Cardiovascular Cardiovascular: Denies chest pain Respiratory/Chest Respiratory/Chest: Denies dyspnea Gastrointestinal Gastrointestinal: Denies abdominal pain, diarrhea, nausea or vomiting Genitourinary Genitourinary ED: Reports hematuria; Denies dysuria Musculoskeletal Musculoskeletal: Denies myalgias Integumentary Denies rash Neurologic Neurologic: Denies headache(s) Psychiatric Psychiatric: Denies depression Endocrine Endocrinology: Denies polyuria Hematologic/Lymphatic Hematologic/Lymphatic: Denies easy bruising Allergic/Immunologic Allergic/Immunologic ED: Denies urticaria EXAM Physical Exam Narrative Exam Narrative: 81-year-old female no acute distress vital signs stable afebrile. HEENT exam unremarkable. Lungs are clear equal symmetrical. Heart regular rhythm rate about 78 no murmur. Abdomen soft nondistended normal bowel sounds no peritoneal signs. Bladder scan shows bladder about 250 cc. There is no urine in her Espinal bag. Moving all 4 extremities. No edema. Neurologically she is awake and alert with no focal motor deficits. Const Vital Signs: 07/09/21 10:32 Temperature 96 F L Temperature Source Temporal Pulse Rate 78 Respiratory Rate 14 Blood Pressure 150/75 H Blood Pressure Mean 100 Pulse Ox 95 Oxygen Delivery Method Room Air Positive well nourished and well developed; Negative for obese, cachectic, contractures or unkempt General Appearance ED: well developed and NAD; Negative for unkempt, cachectic, contractures or pallor Nutritional Appearance: Negative for cachectic or obese HEENT Reports moist mucous membranes Negative for trauma or tenderness Eyes PERRL and EOMs intact bilaterally Neck no lymphadenopathy, supple and no JVD Thyroid: Negative for tender Chest Wall inspection of chest normal and palpation of chest normal Resp normal respiratory effort and clear to auscultation bilaterally Effort and Inspection: Negative for pain with movement Auscultation: Negative for rales, rhonchi or wheezes Cardio regular rate, regular rhythm, S1 normal heart sound, no murmurs and no JVD Rate: Negative for tachycardic Rhythm: Negative for abnormal rhythm GI normal to inspection, nondistended, normoactive bowel sounds, soft to palpation, non-tender, non-distended and no masses Auscultation: normoactive bowel sounds Palpation: Negative for tender, guarding or rigid no CVA tenderness Back/Spine no CVA tenderness General Back: Negative for CVA tenderness Extremity normal to inspection and full ROM General Extremety ED: Negative for edema or tenderness General Extremity: Negative for edema Neuro oriented x3 and no sensory deficits noted Sensorium / Orientation: alert, oriented to person, oriented to place and oriented to time; Negative for confused, lethargic or stuporous Psych mental status grossly normal Appearance: Negative for unkempt Mood & Affect: Negative for depressed or tearful Skin no rashes or lesions noted and no wounds General Skin Exam: Negative for jaundice or pallor MDM MDM MDM Narrative Medical decision making narrative: 81-year-old female with urinary retention suspected secondary to gross hematuria. She is a 20 Brazilian [place] change of 22 and irrigated the urinalysis to be sent. Patient doing well feels much better with a larger catheter in. She has blood- tinged urine but not a lot of gross blood. She has appointment to see her urologist on Saturday. Lab Data Attestation: I reviewed the patient's lab results. Lab results narrative: Urinalysis shows greater than 30 red blood cells. No whites. No squamous cells no bacteria. No nitrites. Labs: Laboratory Results - last 24 hr 07/09/21 11:10 Urine Color Red Urine Clarity Cloudy Urine pH 8.0 Ur Specific [place] 1.010 Urine Protein 100 H Urine Glucose (UA) 100 H Urine Ketones Negative Urine Occult Blood 250 H Urine Nitrite Negative Urine Bilirubin Negative Urine Urobilinogen Normal Ur Leukocyte Esterase 100 H Urine RBC > 100 SEEN Urine WBC 0-5 SEEN Ur Squamous Epith Cells 0 SEEN Urine Bacteria 0 SEEN Urine Mucus 0 SEEN Discharge Plan Triage Chief Complaint: Complaint ED Provider: Justo Eastman Dx/Rx/DC Orders Clinical Impression: Hematuria, Acute urinary retention Instructions: ED Hematuria Prescriptions: No Action valsartan 320 mg tablet 320 mg PO DAILY RF: 0 ondansetron 4 mg tablet,disintegrating 4 mg PO Q8H PRN PRN (Reason: Nausea) Qty: 60 RF: 3 tolterodine [Detrol LA] 2 MG capsule,extended release 24hr 2 mg PO QHS RF: 0 atorvastatin 40 MG tablet 40 mg PO QHS RF: 0 gabapentin 300 MG capsule 300 mg PO QHS RF: 0 Januvia 100 MG tablet 100 mg PO DAILY RF: 0 magnesium 250 mg Tablet 250 mg PO DAILY RF: 0 fluoxetine 40 mg capsule 40 mg PO DAILY RF: 0 amlodipine 10 mg tablet 10 mg PO DAILY RF: 0 metformin 1,000 mg tablet 1,000 mg PO BID RF: 0 hydrochlorothiazide 12.5 mg capsule 12.5 mg PO DAILY RF: 0 bupropion HCl 150 mg tablet extended release 24 hr 150 mg PO DAILY RF: 0 donepezil 10 mg tablet 10 mg PO QHS RF: 0 Probiotic 10 billion cell Capsule 10,000 mmu cells PO DAILY RF: 0 metoclopramide HCl [Reglan] 5 mg tablet 5 mg PO TID PRN (Reason: Nausea) RF: 0 hydrocortisone 2.5 % cream 1 applic topical BID PRN (Reason: Rash) RF: 0 ciprofloxacin HCl [Cipro] 500 mg tablet 500 mg PO BID Qty: 10 RF: 0 ondansetron HCl [Zofran] 4 mg tablet 4 mg PO Q8H Qty: 21 RF: 0 Primary Care Provider: Dhiraj Julian Referrals: Kalyan Valencia MD [STAFF PHYSICIAN] - Keep Renee appointment Dhiraj Julian MD [Primary Care Provider] - Activity Restrictions/Additional Instructions: Follow-up with Dr. Kristian Valencia as scheduled. Return if unable to pass urine through the catheter. If bleeding is a lot worse or you feel worse. Plenty of fluids and rest. Disposition Disposition: Home, Self Care
[2021-07-09 11:17] LABS: Bacteria 0 SEEN /hpf (None Seen); Mucous, Urine 0 SEEN /hpf (<or=2+); Squamous Epithelial Cells - UA 0 SEEN /hpf (5-10)
[2021-07-09 11:19] LABS: Color, Urine Red (Yellow); Glucose, Dipstick 100 mg/dl (Normal); Ketone-Dipstick Negative (Negative); Leukocyte Esterase-Dipstick 100 /ul (Negative); Nitrite-Dipstick Negative (Negative); Occult Blood-Urine 250 /ul (Negative); Protein-Dipstick 100 mg/dl (Negative); Urine Bilirubin Dipstick Negative (Negative); Urine Clarity Cloudy (Clear); Urine Urobilinogen Normal (Normal)
[2021-07-09 11:36] LABS: Red Blood Cells-Urine > 100 SEEN /hpf (0-5); White Blood Cells 0-5 SEEN /hpf (0-5)
[2021-07-09 12:09] VITALS: BP 173/73; PULSE 71
--- NOTE | 2021-07-09 12:10 | ED.RN ---
Pt came in with 20FR arechiga catheter secured by leg bag. Pt complaining of leakage around and minimal collection of urine. Arechiga changed to 22FR, immediate drainage of urine-hematuria noted. Collected 500cc of urine and minimal clots noted. Arechiga continues to drain, switched to leg bag on discharge. Pt tolerated well.
== END 2021-07-09 12:12 | disposition home or self-care (01) ==
PROVIDERS: Emergency Provider Emergency Medicine; PCP Family Medicine
DX: R31.9 Hematuria, unspecified (principal); R33.9 Retention of urine, unspecified; Z87.891 Personal history of nicotine dependence
CPT/HCPCS: 51702; 81001; 99283

== ENCOUNTER → 2021-12-04 | Outpatient (CLI) | payer MEDICARE, OTHER, SELFPAY ==
--- NOTE | 2021-12-04 13:35 | RAD_ITS ---
STUDY: X-RAY - PELVIS AND LEFT HIP REASON FOR EXAM: Female, 81 years old. L HIP OA TECHNIQUE: 3 views of the pelvis and hip. COMPARISON: None. FINDINGS: There is a non-specific bowel gas pattern. Normal visualized soft tissue structures. Normal bilateral iliac wings, sacroiliac joints and visualized sacrum. Normal bilateral superior and inferior pubic rami. Normal pubic symphysis. Normal bilateral ischial tuberosities. Normal visualized femoral head. There is osteoarthritic spur formation of the acetabular rim. There is moderate articular joint space narrowing of the hip. RAD/HIP, UNI W/ Pelvis 2-3 Views IMPRESSION: Moderate arthrosis. Electronically Signed: Nate Holman MD at 15:19 EDT ,
== END | disposition home or self-care (01) ==
LOC: RAD 13:09
PROVIDERS: PCP Family Medicine; Referring Provider Anesthesiology Pain Medicine; Visit Provider Anesthesiology Pain Medicine
DX: M16.12 Unilateral primary osteoarthritis, left hip (principal)
CPT/HCPCS: 73502

== ENCOUNTER 2022-01-05 14:08 | Emergency (ER) | payer MEDICARE, OTHER, SELFPAY ==
[2022-01-05 14:09] VITALS: BP 118/69; PULSE 65; RESP 18; TEMP 36.8; O2SAT 98; BMI 23.0
--- NOTE | 2022-01-05 14:29 | RAD_ITS ---
STUDY: X-RAY - LEFT ELBOW REASON FOR EXAM: Female, 81 years old. trauma TECHNIQUE: 3 view(s) of the elbow. COMPARISON: None. FINDINGS: Normal visualized humerus, radius and ulna. Normal radiocapitellar and ulnotrochlear articulations. The soft tissue structures are unremarkable. RAD/Elbow min 3 Views IMPRESSION: Normal x-ray examination of the elbow. Electronically Signed: Nate Holman MD at 15:11 EDT ,
[2022-01-05] MEDS: Clindamycin 600 MG/50 ML BAG 100 MG IV (15:19)
[2022-01-05 15:39] LABS: ALB/GLOB Ratio 0.8 RATIO (0.9-2.4); AST(SGOT) 43 U/L (15-37); Alanine Aminotransfer ALT/SGPT 51 U/L (13-56); Albumin, Serum 3.3 g/dL (3.2-5.0); Alkaline Phosphatase 86 U/L (45-117); Anion Gap 7 (5-15); BUN 24 mg/dL (7-18); BUN/Creat Ratio 23.3 RATIO (10-20); Calcium,Total 9.8 mg/dL (8.5-10.1); Chloride 102 mmol/L (98-107); Creatinine, Serum 1.03 mg/dL (0.55-1.02); EST Glomerular Filtration Rate 55 mL/min (>60); Est Glom Filt Rate - Afr Amer 66 mL/min (>60); Estimated Creatinine Clearance 36.04 ml/min; Globulin 3.9 g/dL (2.2-4.2); Glucose 129 mg/dL (74-106); Potassium 4.1 mmol/L (3.5-5.1); Protein, Total 7.2 g/dL (6.4-8.2); Sodium Level 137 mmol/L (136-145)
[2022-01-05 16:08] LABS: Absolute Lymphocyte Count 2.46 X10^3/uL (0.83-4.51); Absolute Neutrophil Count 2.2 X10^3/uL (2.0-7.7); Basophil# 0.02 X10^3/uL; Basophil% 0.3 % (0-1); Eosinophils% 1.6 % (0-5); Hematocrit 38.6 % (37-47); Hemoglobin 11.8 g/dL (12.0-15.0); Lymphocyte # 2.46 X10^3/ul (0.83-4.51); Lymphocyte % 40.5 % (19-41); Mean Corp Hgb Conc 30.6 g/dL (32-36); Mean Corpuscular Hgb 25.1 pg (27.0-32.0); Mean Corpuscular Volume 82.1 fL (81-99); Mean Platelet Vol. 11.3 fl (6.2-12.0); Monocyte# 1.27 X10^3/uL; Monocyte% 20.9 % (0-10); NRBC Flagged by Analyzer 0 % (0-5); Neutrophil % 36.2 % (47-70); Platelet Count 145 K/mm3 (150-450); RBC Distribution Width CV 16.5 % (11.6-14.6); RBC Distribution Width SD 49.2 fl (35.1-43.9); White Blood Count 6.1 K/mm3 (4.4-11.0)
--- NOTE | 2022-01-05 16:09 | EX.ED.UPPERE ---
HPI History of Present Illness Chief Complaint: Upper Extremity Injury Narrative Narrative: Patient presents with left elbow pain. She has a history of a fall, she had a negative x-ray but has had some olecranon pain since then. Today she noticed some pus from her patellar bursa. No fever or chills. No new injury. She has no significant pain with pronation supination flexion or extension unless the extension is almost full. [facility] Medical History Ambulates with cane Arthritis Back pain Cancer Carpal tunnel syndrome Depression Diabetes Dietary restriction Fecal incontinence GI bleeding High cholesterol History of hiatal hernia History of pain when walking History of stress test Hx of cataract Hypertension Hypertension Injury of back Kidney stone on left side Kidney stones Liver cirrhosis Liver lesion, right lobe Low back problem Migraine headache Multiple lung nodules Nausea Non-smoker Normal stress echocardiogram Open wound Pancreatitis Peripheral neuropathy Type II diabetes mellitus Wears glasses Home Medications atorvastatin 40 mg tablet 40 mg PO QHS cholestrol 02/14/14 [History Last Taken 10 Days Ago ~04/22/21] gabapentin 300 mg capsule 300 mg PO QHS nerve pain 02/14/14 [History Last Taken 05/01/21] tolterodine 2 mg capsule,extended release 24 hr (Detrol LA) 2 mg PO QHS overactive bladder 02/14/14 [History Last Taken 05/01/21] sitagliptin 100 mg tablet (Januvia) 100 mg PO DAILY diabetes 04/06/18 [History Last Taken 04/29/21] magnesium 250 mg tablet 250 mg PO DAILY 11/14/20 [History Last Taken 04/25/21] valsartan 320 mg tablet 320 mg PO DAILY 04/10/21 [History Last Taken 07/05/21 06:30] amlodipine 10 mg tablet 10 mg PO DAILY bp 05/02/21 [History Last Taken 07/05/21 06:30] bupropion HCl 150 mg 24 hr tablet, extended release 150 mg PO DAILY mood 05/02/21 [History Last Taken 10 Days Ago ~04/22/21] donepezil 10 mg tablet 10 mg PO QHS memory 05/02/21 [History Last Taken Unknown] fluoxetine 40 mg capsule 40 mg PO DAILY depression 05/02/21 [History Last Taken 10 Days Ago ~04/22/21] hydrochlorothiazide 12.5 mg capsule 12.5 mg PO DAILY bp/fluid 05/02/21 [History Last Taken 10 Days Ago ~04/22/21] metformin 1,000 mg tablet 1,000 mg PO BID dm 05/02/21 [History Last Taken 05/01/21] ondansetron 4 mg disintegrating tablet 4 mg PO Q8H PRN PRN Nausea #60 tabs 06/12/21 [Rx Last Taken Unknown] Lactobacillus acidophilus 10 billion cell capsule (Probiotic) 10,000 mmu cells PO DAILY 06/28/21 [History Last Taken Unknown] hydrocortisone 2.5 % topical cream 1 applic topical BID PRN Rash 06/28/21 [History Last Taken Unknown] metoclopramide HCl 5 mg tablet (Reglan) 5 mg PO TID PRN Nausea 06/28/21 [History Last Taken Unknown] ciprofloxacin HCl 500 mg tablet (Cipro) 500 mg PO BID #10 tabs 07/05/21 [Rx Last Taken Unknown] clindamycin HCl 300 mg capsule (Cleocin HCl) 300 mg PO Q6H #28 caps 01/05/22 [Rx Last Taken Unknown] Allergy/AdvReac Type Severity Reaction Status Date / Time acetaminophen [From Vicodin] Allergy Unknown Verified 01/05/22 14:12 codeine Allergy Anaphylaxis Verified 01/05/22 14:12 hydrocodone bitartrate AdvReac Vomiting Verified 01/05/22 14:12 [From Vicodin] zolpidem tartrate AdvReac Other Verified 01/05/22 14:12 [From Ambien] CRAB Allergy Swollen Uncoded 01/05/22 14:12 lymph glands Family History Grandfather Parkinson disease Other CVA (cerebral vascular accident) Surgical History H/O: hysterectomy History of 2 sections History of back surgery History of cholecystectomy Hx of detached retina repair Hx of total knee replacement Social History Smoking Status: Never smoker how long ago did patient quit smoking: stoped in 1970 used when she was in her teens alcohol intake: never substance use type: does not use ROS ROS ED ROS Narrative Past medical history: none Medications: Reviewed Social history: Noncontributory Review of systems: General: No fevers or chills Musculoskeletal: Elbow pain as in HPI Skin: No other abrasions or lacerations Neurological: No weakness or paresthesias Hematologic: No easy bleeding or easy bruising EXAM Physical Exam Narrative Exam Narrative: Physical exam General: Well nourished, Well developed, No Acute Distress Head: Normocephalic, Atraumatic Neck: Supple, Nontender, No lymphadenopathy Cardiovascular: Regular rate, Regular rhythm Respiratory: No distress, CTA bilaterally Abdomen: Soft, Nontender, Nondistended Back: Nontender, Normal Inspection. Negative for: CVA tenderness Extremities: Left elbow shows a very small olecranon bursa with very scant pustular discharge. There is no surrounding cellulitis. There is no joint effusion. No pain with pronation and supination some pain with full extension but otherwise no other pain Skin: As above otherwise normal color, No rash Neurological: Alert, Normal Strength, Normal Sensation Psychological: Normal affect Const Vital Signs: 01/05/22 14:09 Temperature 98.3 F Temperature Source Temporal Pulse Rate 65 Respiratory Rate 18 Blood Pressure 118/69 Blood Pressure Mean 85 Pulse Ox 98 Oxygen Delivery Method Room Air MDM MDM MDM Narrative Medical decision making narrative: Patient is given IV antibiotics, I talked to orthopedics who is planning on doing a washout in the office in 2 days on Saturday. Patient will be followed up with orthopedics if anything worsens they are to return. This seems like a reasonable treatment strategy. Lab Data Labs: Laboratory Results - last 24 hr 01/05/22 01/05/22 15:06 15:06 WBC Cancelled Corrected WBC Cancelled RBC Cancelled Hgb Cancelled Hct Cancelled MCV Cancelled MCH Cancelled MCHC Cancelled RDW Std Deviation Cancelled RDW Coeff of [place] Cancelled Plt Count Cancelled MPV Cancelled Immature Gran % (Auto) Cancelled Neut % (Auto) Cancelled Lymph % (Auto) Cancelled [place] % (Auto) Cancelled Eos % (Auto) Cancelled Baso % (Auto) Cancelled Absolute Neuts (auto) Cancelled Absolute Lymphs (auto) Cancelled Total Counted Cancelled Neutrophils % (Manual) Cancelled Band Neutrophils % Cancelled Lymphocytes % (Manual) Cancelled Monocytes % (Manual) Cancelled Eosinophils % (Manual) Cancelled Basophils % (Manual) Cancelled Metamyelocytes % Cancelled Myelocytes % Cancelled Promyelocytes % Cancelled Blast Cells % Cancelled Plasma Cell % (Manual) Cancelled Other Cells % Cancelled Nucleated RBC % Cancelled Nucleated RBCs/100 WBC Cancelled Differential Comment Cancelled Diff Path Review Cancelled Hypersegmented Neuts Cancelled Atypical Lymphocytes Cancelled Reactive Lymphocytes Cancelled Smudge Cells Cancelled Toxic Granulation Cancelled Toxic Vacuolation Cancelled Dohle Bodies Cancelled Gisela Rods Cancelled Platelet Estimate Cancelled Plt Morphology Comment Cancelled RBC Morphology Cancelled Polychromasia Cancelled Hypochromasia Cancelled Poikilocytosis Cancelled Basophilic Stippling Cancelled Anisocytosis Cancelled Microcytosis Cancelled Macrocytosis Cancelled Spherocytes Cancelled Sickle Cells Cancelled Target Cells Cancelled Tear Drop Cells Cancelled Ovalocytes Cancelled Stomatocytes Cancelled [place] Bodies Cancelled Brandee Cells Cancelled Bite Cells Cancelled Crenated Cell Cancelled Acanthocytes (Spur) Cancelled Rouleaux Cancelled Schistocytes Cancelled Sodium 137 Potassium 4.1 Chloride 102 Carbon Dioxide 28.0 Anion Gap 7 BUN 24 H Creatinine 1.03 H Estim Creat Clear Calc 36.04 Est GFR (MDRD) Af Amer 66 Est GFR (MDRD) Non-Af 55 L BUN/Creatinine Ratio 23.3 H Glucose 129 H Calcium 9.8 Total Bilirubin 0.40 AST 43 H ALT 51 Alkaline Phosphatase 86 Total Protein 7.2 Albumin 3.3 Globulin 3.9 Albumin/Globulin Ratio 0.8 L Radiography Diagnostic Testing: Clinical Impression(s) from Imaging Studies Elbow X-Ray 01/05/22 14:29 IMPRESSION: Normal x-ray examination of the elbow. Electronically Signed: Nate Holman MD at 15:11 EDT , Discharge Plan Triage Chief Complaint: Upper Extremity Injury ED Provider: Quentin Bear Dx/Rx/DC Orders Clinical Impression: Bursitis, olecranon, Fall Instructions: ED Bursitis Elbow Olecranon Prescriptions: New clindamycin HCl [Cleocin HCl] 300 mg capsule 300 mg PO Q6H Qty: 28 0RF No Action valsartan 320 mg tablet 320 mg PO DAILY Label Comments: TAKE 1 TABLET BY MOUTH EVERY DAY ondansetron 4 mg tablet,disintegrating 4 mg PO Q8H PRN PRN (Reason: Nausea) Qty: 60 3RF tolterodine [Detrol LA] 2 MG capsule,extended release 24hr 2 mg PO QHS Label Comments: URINARY MEDICATION atorvastatin 40 MG tablet 40 mg PO QHS Label Comments: CHOLESTEROL gabapentin 300 MG capsule 300 mg PO QHS Label Comments: NEUROPATHY Januvia 100 MG tablet 100 mg PO DAILY Label Comments: magnesium 250 mg Tablet 250 mg PO DAILY fluoxetine 40 mg capsule 40 mg PO DAILY amlodipine 10 mg tablet 10 mg PO DAILY metformin 1,000 mg tablet 1,000 mg PO BID hydrochlorothiazide 12.5 mg capsule 12.5 mg PO DAILY bupropion HCl 150 mg tablet extended release 24 hr 150 mg PO DAILY donepezil 10 mg tablet 10 mg PO QHS Rx Instructions: Begin after completing one month of treatment of donepezil 5mg nightly Probiotic 10 billion cell Capsule 10,000 mmu cells PO DAILY metoclopramide HCl [Reglan] 5 mg tablet 5 mg PO TID PRN (Reason: Nausea) Rx Instructions: administer 30 minutes before meals hydrocortisone 2.5 % cream 1 applic topical BID PRN (Reason: Rash) Rx Instructions: apply to the rectum twice daily x 21 days ciprofloxacin HCl [Cipro] 500 mg tablet 500 mg PO BID Qty: 10 0RF Primary Care Provider: Dhiraj Julian Referrals: Nirmal Dunn MD [STAFF PHYSICIAN] - (on Saturday) Dhiraj Julian MD [Primary Care Provider] - Disposition Disposition: Home, Self Care
[2022-01-05 16:34] VITALS: BP 120/70; PULSE 68; RESP 18; O2SAT 98
== END 2022-01-05 16:37 | disposition home or self-care (01) ==
PROVIDERS: Emergency Provider Emergency Medicine; PCP Family Medicine; Visit Provider Emergency Medicine
DX: M70.22 Olecranon bursitis, left elbow (principal)
CPT/HCPCS: 73080; 80053; 85025; 96365; 96366; 99282; J7050; A4216

== ENCOUNTER → 2022-01-16 | Outpatient (CLI) | payer MEDICARE, OTHER, SELFPAY ==
--- NOTE | 2022-01-16 15:46 | MRI_ITS ---
EXAM: MR LUMBAR SPINE WITHOUT INTRAVENOUS CONTRAST CLINICAL INDICATION: RADICULOPATHY, LUMBAR REGION TECHNIQUE: Multiplanar and multisequence MR images of the lumbar spine without intravenous contrast. This report was created using [employer] report Clinical Data technology. COMPARISON: None. FINDINGS: VERTEBRAE: Unremarkable. Vertebral body heights are preserved. Normal vertebral bodies and posterior elements. Normal alignment. No spondylolisthesis. There is preservation of the normal lumbar lordosis. SPINAL CORD: Unremarkable. Normal position and signal intensity of the conus medullaris. SOFT TISSUES: Unremarkable. DISCS/SPINAL CANAL/NEURAL FORAMINA: L1-L2: Unremarkable. Normal disc height and morphology. Normal spinal canal and lateral recesses. Normal neuroforamina. L2-3: Prominent disc space narrowing. Broad-based disc protrusion and facet arthropathy results in mild spinal stenosis and moderate bilateral neural foraminal narrowing. L3-4: Prominent disc space narrowing. Broad-based disc protrusion and prominent facet arthropathy results in mild spinal stenosis and severe bilateral neural foraminal and left lateral recess stenoses. L4-5: Prominent disc space narrowing. Broad-based disc protrusion and facet arthropathy results in mild spinal stenosis and severe bilateral neural foraminal narrowing. L5-S1: Mild disc bulging and moderate bilateral facet arthropathy results in moderate narrowing of the neural foramina. No significant spinal stenosis. MRI/Spine Lumbar (Routine) IMPRESSION: Prominent disc space narrowing at L2-3, L3-4 and L4-5 as well as multilevel facet arthropathy resulting in multilevel mild spinal stenoses and moderate to severe neural foraminal stenoses as described above. Electronically Signed: Haider Wang MD at 8:59 EDT ,
== END | disposition home or self-care (01) ==
LOC: MRI 15:30
PROVIDERS: PCP Family Medicine; Referring Provider Anesthesiology Pain Medicine; Visit Provider Anesthesiology Pain Medicine
DX: M96.1 Postlaminectomy syndrome, not elsewhere classified (principal); M54.16 Radiculopathy, lumbar region
CPT/HCPCS: 72148

== ENCOUNTER 2022-01-26 14:26 | Emergency (ER) | payer OTHER, MEDICARE, SELFPAY ==
[2022-01-26 14:28] VITALS: BP 149/92; PULSE 84; RESP 16; TEMP 36.7; O2SAT 99; BMI 24.5
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
[2022-01-26 16:09] VITALS: RESP 16
== END 2022-01-26 16:10 | disposition home or self-care (01) ==
PROVIDERS: Emergency Provider Emergency Medicine; PCP Family Medicine; Visit Provider Emergency Medicine
DX: S16.1XXA Strain of muscle, fascia and tendon at neck level, initial encounter (principal); S30.1XXA Contusion of abdominal wall, initial encounter; V43.52XA Car driver injured in collision with other type car in traffic accident, initial encounter
CPT/HCPCS: 70450; 71045; 72125; 74176; 93005; 99284

== ENCOUNTER → 2022-03-07 | Outpatient (CLI) | payer MEDICARE, OTHER, SELFPAY ==
[2022-03-07 13:36] LABS: Hemoglobin A1c 6.8 % (3.8-5.6)
== END | disposition home or self-care (01) ==
LOC: LAB 12:12
PROVIDERS: PCP Family Medicine; Referring Provider Nurse Practitioner Adult Health; Visit Provider Nurse Practitioner Adult Health
DX: E11.9 Type 2 diabetes mellitus without complications (principal)
CPT/HCPCS: 36415; 83036

== ENCOUNTER 2022-03-26 07:45 | Observation (INO) | payer MEDICARE, OTHER, SELFPAY ==
--- NOTE | 2022-03-20 13:10 | CASEMGMT ---
Social Work Referral Source: nurse Dasia at Dr. Fam's office. Date of referral: 03/20/2022 Reason for referral: Discharge planning Per phone call with Dasia soto nurse at Dr. Fam's office, the patient and family are interested in the [facility] after surgery on 03.26.2022. Dasia inquired whether there was anything which can be done to arrange this prior to surgery. Let Dasia know this telegraphic typewriter installer can call the patient to review, but will need PT/OT evaluations ordered and once this is done this will assist with formalizing a plan based on patient's care needs. Phone call to number listed for patient, . Patient's daughter Amara answered and reported to be handling all of patient's health care and physician phone calls. Amara confirmed that spoke with physician office about SNF and further therapy after surgery. Amara asked about patient staying at [facility], reporting that patient has voiced preference to remain at the hospital for rehab as this is close to patient's home. Educated to the availability of list of SNF's for patient's geographic region, and that social services manager would like to provide this to patient and family. Educated Amara to need for 3 choices, as well as that based on how patient does after surgery, and with therapy would help indicate level of care at time of discharge. Amara reported patient has been to [place] in the past, after last back surgery and patient would not want to return to this facility. Amara reports the patient would like the hospital based unit as a first choice. Amara reported will work with the patient on determining a second and third choice. Amara reported patient normally lives alone and is independent at home, but was told would need 24/7 care after surgery and this is not a viable option for the family to provided to the patient. Emailed Amara at [email or web address] list of area SNF's in patient's geographic regions including resource and quality data. Inquired whether patient has a power of deputy prosecuting attorney for healthcare and or living well. Amara reported patient has both and agreed to bring the forms in with the patient at time of surgery or email to this telegraphic typewriter installer prior to surgery. Phone call to admissions line for [facility] and rehab units. Spoke with Deidre and admissions of identified first choice. Based on diagnosis the rehab unit may be a consideration for this patient, but further determination of level of care needs will be after surgery and therapy evaluations. Phone call back to daughter Amara, and message left updating. Plan: Based on patient living alone, limited family availability to provide 24-hour care, and history of rehab after prior back surgery anticipate some level of rehab for patient after this procedure. SNF versus rehab unit level of care. Social work will follow and assist with appropriate referrals as indicated. -PAPO Schwartz, FINISH SPECIALIST
[2022-03-22 16:00] LABS: Absolute Neutrophil Count 4.1 X10^3/uL (2.0-7.7); Basophil# 0.03 X10^3/uL; Basophil% 0.4 % (0-1); Eosinophil# 0.15 X10^3/uL; Eosinophils% 1.9 % (0-5); Hematocrit 39.7 % (37-47); Hemoglobin 12.6 g/dL (12.0-15.0); Lymphocyte % 36.3 % (19-41); Mean Corp Hgb Conc 31.7 g/dL (32-36); Mean Corpuscular Hgb 26.4 pg (27.0-32.0); Mean Corpuscular Volume 83.1 fL (81-99); Mean Platelet Vol. 12.2 fl (6.2-12.0); Monocyte# 0.76 X10^3/uL; Monocyte% 9.5 % (0-10); NRBC Flagged by Analyzer 0 % (0-5); Neutrophil # 4.11 X10^3/uL (2.7-7.7); Neutrophil % 51.5 % (47-70); Platelet Count 171 K/mm3 (150-450); RBC Distribution Width CV 14.7 % (11.6-14.6); RBC Distribution Width SD 44.2 fl (35.1-43.9); Red Blood Count 4.78 M/mm3 (4.2-5.4)
[2022-03-22 16:38] LABS: Anion Gap 8 (5-15); BUN 25 mg/dL (7-18); BUN/Creat Ratio 23.1 RATIO (10-20); Calcium,Total 9.7 mg/dL (8.5-10.1); Chloride 106 mmol/L (98-107); Creatinine, Serum 1.08 mg/dL (0.55-1.02); EST Glomerular Filtration Rate 52 mL/min (>60); Est Glom Filt Rate - Afr Amer 63 mL/min (>60); Glucose 113 mg/dL (74-106); Potassium 4.3 mmol/L (3.5-5.1); Sodium Level 139 mmol/L (136-145)
[2022-03-22 17:18] LABS: HIV - WCH Non-Reactive (Nonreactive); Hepatitis B Surface Antibody Non-Reactive; Hepatitis C Antibody Non-Reactive (Nonreactive)
[2022-03-22 17:59] LABS: Magnesium 2.1 mg/dL (1.6-2.6)
[2022-03-24 16:19] LABS: Hepatitis A AB, Total Negative (Negative)
[2022-03-26] VITALS (12 sets, daily range): BP systolic 109–144; BP diastolic 48–70; PULSE 56–67; RESP 12–18; TEMP 35.9–37.1; O2SAT 94–100; BMI 23.1
[2022-03-26] MEDS: Magnesium 1 GM over 15 mins IV (06:16)
[2022-03-26] MEDS: Acetaminophen 500 MG Tablet 1000 MG PO ×3 (06:16→21:45)
[2022-03-26] MEDS: Lactated Ringers 1,000 ML 15 ML IV (06:17)
[2022-03-26] MEDS: Insulin Lispro 100 UNIT/ML INSULN.PEN SC ×2 (06:18→16:14)
[2022-03-26 07:25] LABS: Bedside Glucose 281 mg/dL (74-106)
--- NOTE | 2022-03-26 07:30 | RAD_ITS ---
EXAM: XR SPINE, 1 VIEW CLINICAL INDICATION: REPEAT LAMINECTOMY L3-4 TECHNIQUE: Single view of the spine. This report was created using [employer] report generation technology. COMPARISON: None. FINDINGS: VERTEBRAE: Single lateral view of the lumbar spine obtained in the OR for localization purposes. Surgical marker the L4 level. Multilevel disc degeneration and facet arthropathy. Preserved vertebral body height. No fracture. Preservation of the normal spine curvature. DISC SPACES: Normal. Disc spaces are maintained. SOFT TISSUES: Normal. RAD/Lumbar Spine 2 or 3 Views IMPRESSION: As above. Electronically Signed: Haider Wang MD at 9:51 EDT ,
[2022-03-26] MEDS: Cefazolin 2 GM in 0.9% Normal Saline 100 ML IV (07:39)
[2022-03-26] MEDS: THROMBIN (RECOMBINANT) 20,000 UNIT VIAL 20000 UNIT TOPICAL (09:20)
--- NOTE | 2022-03-26 09:30 | RAD_ITS ---
EXAM: XR SPINE, 1 VIEW CLINICAL INDICATION: LAMINECTOMY TECHNIQUE: Single view of the spine. This report was created using [employer] report generation technology. COMPARISON: None. FINDINGS: VERTEBRAE: Normal. Preserved vertebral body height. No fracture. Preservation of the normal spine curvature. No significant facet arthropathy. DISC SPACES: Lateral view of the lumbar spine obtained in the OR demonstrates radiographic marker at the L3-4 disc. SOFT TISSUES: Normal. RAD/Spine 1 View Any Level IMPRESSION: As above. Electronically Signed: Haider Wang MD at 9:51 EDT ,
[2022-03-26] MEDS: Lactated Ringers 1,000 ML 100 ML IV ×2 (10:00→21:45)
--- NOTE | 2022-03-26 10:11 | PCM.HP.BLA ---
History and Physical [facility] [address] [place] [id number] OFFICE VISIT Date of Service:? 02/23/22 MR#: [id number] Acct: [id number] Name:DILCIA AVENDANO Rep #: [id number] : 1940 ? ? Provider: Dr. Memo Fam, DO Age/Sex:? 81/F ? ? Location: [facility] [place].NITIN Status: Signed Intake Vital Signs ? 01/26/2214:28 Height 5 ft 4 in Weight: 143 lb BMI 24.5 BP 149/92 H Respiration 16 Pulse 84 Temp 98.0 F Temp Source Temporal Pulse Oximetry (%) 99 Intake Visit Reasons:?Lumbar pain Chief Complaint: Cognitive changes/Tremor Lt hand Allergies acetaminophen [From Vicodin] Allergy (Verified 01/26/22 15:01) Unknowncodeine Allergy (Verified 01/26/22 15:01) Anaphylaxishydrocodone bitartrate [From Vicodin] Adverse Reaction (Verified 01/26/22 15:01) Vomitingzolpidem tartrate [From Ambien] Adverse Reaction (Verified 01/26/22 15:01) OtherCRAB Allergy (Uncoded 01/26/22 15:01) Swollen lymph glands Medications atorvastatin 40 mg tablet 40 mg PO QHS cholestrol 02/14/14 [History Confirmed 02/23/22] gabapentin 300 mg capsule 300 mg PO QHS nerve pain 02/14/14 [History Confirmed 02/23/22] tolterodine 2 mg capsule,extended release 24 hr (Detrol LA) 2 mg PO QHS overactive bladder 02/14/14 [History Confirmed 02/23/22] sitagliptin 100 mg tablet (Januvia) 100 mg PO DAILY diabetes 04/06/18 [History Confirmed 02/23/22] magnesium 250 mg tablet 250 mg PO DAILY 11/14/20 [History Confirmed 02/23/22] valsartan 320 mg tablet 320 mg PO DAILY 04/10/21 [History Confirmed 02/23/22] amlodipine 10 mg tablet 10 mg PO DAILY bp 05/02/21 [History Confirmed 02/23/22] bupropion HCl 150 mg 24 hr tablet, extended release 150 mg PO DAILY mood 05/02/21 [History Confirmed 02/23/22] fluoxetine 40 mg capsule 40 mg PO DAILY depression 05/02/21 [History Confirmed 02/23/22] hydrochlorothiazide 12.5 mg capsule 12.5 mg PO DAILY bp/fluid 05/02/21 [History Confirmed 02/23/22] metformin 1,000 mg tablet 1,000 mg PO BID dm 05/02/21 [History Confirmed 02/23/22] hydrocortisone 2.5 % topical cream 1 applic topical BID PRN Rash 06/28/21 [History Confirmed 02/23/22] clobetasol 0.05 % scalp solution 1 applic topical 02/23/22 [History Confirmed 02/23/22] meloxicam 15 mg tablet 15 mg PO 02/23/22 [History Confirmed 02/23/22] nystatin 100,000 unit/gram topical powder 1 applic topical 02/23/22 [History Confirmed 02/23/22] PFSH Medical History?(Updated 02/23/22 @ 14:[address] Memo Fam DO) Ambulates with cane Arthritis Back pain Cancer Carpal tunnel syndrome Depression Diabetes Dietary restriction Fecal incontinence GI bleeding High cholesterol History of hiatal hernia History of pain when walking History of stress test Hx of cataract Hypertension Hypertension Injury of back Kidney stone on left side Kidney stones Liver cirrhosis Liver lesion, right lobe Low back problem Migraine headache Multiple lung nodules Nausea Non-smoker Normal stress echocardiogram Open wound Pancreatitis Peripheral neuropathy Type II diabetes mellitus Wears glasses Surgical History? H/O: hysterectomy History of 2 sections History of back surgery History of cholecystectomy Hx of detached retina repair Hx of total knee replacement Family History? Grandfather Parkinson diseaseOther CVA (cerebral vascular accident) Social History? Smoking Status:? Never smoker how long ago did patient quit smoking:? stoped in 1970 used when she was in her teens alcohol intake:? never substance use type:? does not use HPI Lumbar pain Details: Parts of this documentation were recorded by a scribe, this documentation accurately reflects the service provided and the decisions made by me, Dr. Memo Fam DO 02/23/22 1301. DILCIA HENRY is a 81 year old F NEW patient here today for lumbar spine. She states that she has been having lumbar pain since she was a child. She has had a previous surgery by Dr. Aviles at [facility] and she was doing really well until about 2 years ago then her pain returned and has been worse over the last 8 months. She states that she has been seeing Dr. Mark for back injections which are not helpful She states that she is now having a hard time walking as she has weakness in the left leg. She has been seen by Dr. Pappas and had an MRI completed and was sent here by Dr. Mark. She states that she has lower left sided back pain thats radiates down her left leg to the knee. She does have numbness of the left thigh as well. She states that her left leg is always itchy. Goal today is to have something to help with the pain. She does live along and she does have a hx of falls d/t her left leg pain/numbness. Mrs. Henry is a delightful young lady 81 years old who presents in the company of her daughter.? She has terrific pain from her left buttocks into the anterior thigh.? The thigh feels weak and she has trouble going up or down stairs because of the weakness.? As I recall her back surgery at 2 or 3 levels was about 14 years ago.? It was very successful and made her pain go away for a long time.? Last few months the pain has been worse and worse even though it started perhaps a year or 2 ago.? Now it is affecting her life.? She is normally very active. Mrs. Henry is very well oriented as to time place and person.? Her mind is sharp.? Right now she has some pain with extension and some with flexion that is increased.? She has wasting of the left quad as compared to the right.? The left patellar reflex is completely absent and the right 1 is 3+.? She can stand on her toes and she can stand on her heels without difficulty.? She has no long tract signs.? Clonus is absent Babinski's are downgoing. I went over the MRI scan that she had not too long ago.? I can see where the old surgery was in the fact that she has marked degeneration at L2-3 L3-4 and L4-5.? However at L3-4 she has lateral recess stenosis probably bony in nature or he could even be left over ligamentum flavum.? Nonetheless it is probably affecting the L4 nerve root which goes right along with her symptoms.? I explained to Mrs. Henry and her daughter that I would sure like to help her if possible.? We probably need to get her hemoglobin A1c down to below 7 before I feel comfortable doing her surgery.? After that we will schedule her for decompression of L3-4 on the left side.? I will see her again at preop. Coding Level of Care Code Off vis,new,level 3 Diagnoses Back pain? M54.9 Lumbosacral radiculopathy at L4? M54.17 Time Spent (min) 40 Assessment and Plan Assessment and Plan (1) Back pain: ?Status:?Acute ?Comment: SCIATIC SANCHEZ, HX OF BACK SURGERY
--- NOTE | 2022-03-26 10:13 | PCM.OPRPT ---
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 Fam child care assistant: Pham Moore NP Anesthesia: General endotracheal by [facility] EBL: 20 cc Drains: None Complications: None Procedure: Patient was taken to the OR where she was placed under general endotracheal anesthesia a Espinal catheter was inserted. Neuro monitoring placed her leads on the patient. The patient was then placed in the prone position on the Bruno frame. After proper positioning with care to protect her bony prominences her breasts her brachial plexus her ulnar nerves of both elbows and her cervical spine and facial features the back was prepped and draped standard fashion I made a longitudinal incision centered somewhat over the old incision centered at the level of the iliac crest. Subcutaneous tissues were incised length of the skin incision. Note that she did not have any spinous processes as these were removed from her surgery 17 years ago. So when a certain depth I started skiving the incision with the cautery over to the left to identify facet. Identified the facet that I thought would probably be the L3-4 facet. A marker was put in place and an intraoperative x-ray was taken the demonstrated that we were at the right level. Then used cautery to slowly start releasing soft tissues off of the facet as I went towards the medial side. I finished the release with straight and angled curettes this was a careful and tedious process obviously. Once I had some of the scar released off the medial part of the facet I began the laminectomy process removing basically in layers first top half and then as I went further deeper I was able to use the curette to release the scar tissue off of the dura and the dura of course was identified I continued this until I was able to completely decompress the lateral recess with mostly using 3 mm 45 degree Kerrison rongeurs. Again this was a tedious process because of the old surgery and the fact that she had some scar tissue and also quite a bit of ligamentum flavum that was left in at the time of the surgery 17 years ago. Of course this is almost impossible to take off the dura as safely so the idea is to remove bone far enough out that the ligamentum flavum can sleep simply stay on the dura as long as it does not have any pressure from the outside from bone. I also was able to identify the foramen the foramen was open and the L4 nerve root was loose. Note that I took a second x-ray with a needle thought to be in the disc space and we confirmed that it was knowing that looking at the MRI scan I had to go to the disc space and not really necessarily above it but I was able to release even above it and only a little bit below it perhaps less than a quarter of an inch and this was all decompressed also so this confirmed that the pressure that was seen from the MRI scan had been released. Noted we thoroughly irrigated every few minutes in the course of the case to prevent infection. I then packed the epidural space with thrombin-soaked Gelfoam and cottonoids 2 or 3 times until we got excellent hemostasis. An amniotic membrane was placed over the dura to prevent any further adhesions. Gelfoam was placed over the top of that. I then closed the lumbar fascia using [id number] suture with #1 Vicryl followed by closure of subcutaneous tissues with 2-0 Vicryl in interrupted fashion and the skin was approximated using skin clips. Sterile dressings were applied. The patient was then recovered in the OR she was moved to her hospital bed and taken to recovery in satisfactory condition. This is the end of operative summary on Shanel Felton. This is Dr. Fam dictating.
[2022-03-26 11:21] LABS: Bedside Glucose 138 mg/dL (74-106)
--- NOTE | 2022-03-26 11:55 | HP.PCM_ITS ---
History and Physical MR#: [id number] Acct: [id number] Name:MIRTA ANGEL Rep #: [id number] : 07/27/1948 ? ? Provider: Dr. Memo Fam, DO Age/Sex:? 73/F ? ? Location: [facility] [place] Status: Signed Intake Vital Signs ? 03/24/2111:45 Height 5 ft 4 in Intake Visit Reasons:?CERVICAL SPINE Is patient in pain?: Yes Pain scale (1-10): 7 Allergies amoxicillin Adverse Reaction (Intermediate, V Nauseasulfamethoxazole [From ] Adverse Reaction (Intermediate, Fatiguetrimethoprim [From ] Adverse Reaction (Intermediate, Fatigue Medications atenolol 25 mg tablet 25 mg PO QHS bp 11/04/20 [History Co biotin 10,000 mcg disintegrating tablet 10,000 mcg PO DAILY supplement 11/04/20 calcium carbonate 500 mg calcium (1,250 mg) tablet 500 mg PO BID supplement 11/04/20 [History Confirme cholecalciferol (vitamin D3) 50 mcg (2,000 unit) capsule 50 mcg PO DAILY supplement 11/04/20 [History Confirmed citalopram 20 mg tablet 20 mg PO DAILY anxiety 11/04/20 [History lisinopril 2.5 mg tablet 2.5 mg PO QHS bp 11/04/20 [History Confirmed 03/16/22] magnesium 250 mg tablet 250 mg PO DAILY supplement 11/04/20 [History Confirmed 03/16/22] meloxicam 7.5 mg tablet 7.5 mg PO DAILY 11/04/20 [History Confirmed 03/16/22] metformin 500 mg tablet,extended release 24 hr 500 mg PO DAILY bld glucose 11/04/20 [History Confirmed 03/16/22] rosuvastatin 5 mg tablet 5 mg PO QHS cholesterol 11/04/20 [History Confirmed 03/16/22] trazodone 50 mg tablet 50 mg PO QHS sleep 11/04/20 [History Confirmed 03/16/22] oxycodone-acetaminophen 5 mg-325 mg tablet 0.5 - 1 tab PO BID pain 03/21/21 [History Confirmed 03/16/22] potassium 99 mg tablet 99 mg PO DAILY supplement 03/21/21 [History Confirmed 03/16/22] PFSH Medical History? Anxiety Back pain CPAP (continuous positive airway pressure) dependence Easy bruising Former smoker High cholesterol History of cardiac arrhythmia History of diabetes mellitus History of irregular heartbeat History of stress test Hypertension Restless legs Wears dentures Wears partial dentures Surgical History History of appendectomy History of carpal tunnel release of both wrists History of cholecystectomy History of lumbar surgery History of rotator cuff surgery Family History? Father Diabetes Heart disease Hypertension Myocardial infarctionBrother Myocardial infarction Hypertension Heart disease Diabetes CancerGrandmother CancerGrandfather CancerMother Arthritis Social History?( household members:? spouse and family Smoking Status:? Former smoker alcohol intake:? never what type of physical activity do you participate in:? none do you feel safe at home:? Yes HPI CERVICAL SPINE Details: Parts of this documentation were recorded by a scribe, this documentation accurately reflects the service provided and the decisions made by me, Dr. Memo Fam, DO MIRTA OTERO is a 73 year old F here today for neck pain that radiates into bilateral arms. Patient is being referred by Dr. Mark who performed a steroid injection into her cervical spine without any relief of pain. Patient applies both ice and heat to her neck and uses a tens unit. She also takes naproxen for pain relief. She says all of these interventions do not work as well as they used to. Patient obtained a cervical spine MRI earlier this year. No plain x- rays have been obtained recently. Patient denies any injury that would have caused her pain. Patient states that on a scale from 1-10 that her pain is a 7 or 8 Mrs. Oetro returns for follow-up and for a new problem.? She has had neck pain now for several months that has gradually worsened.? It goes down her right arm mostly and little bit on her left arm and the pain has been severe at times.? She is unable to live her life as she would like to because of the disability discomfort and pain.? She had an epidural steroid done by Dr. Mark about 2 or 2 and half months ago and it did not help her whatsoever.? She is a diabetic and takes 1 metformin pill a day. On examination she has positive Spurling's to the right side.? She otherwise has feels physiologic reflexes bilaterally.? She has no muscle atrophy.? She has reasonable motor strength of all the major muscle groups of both upper extremities.? She has no long tract signs.? Clonus is absent and Babinski's are downgoing. I reviewed plain x-rays of her cervical spine that demonstrated decreased disc space with some enthesophyte formation at C5-6.? I reviewed the MRI scan that she had the demonstrates that she has significant foraminal stenosis at C5-6 on the right and little bit on the left.? She also has significant foraminal stenosis at C6-7 only on the left.? She was wishes to have something done if she is tired of the significant pain that she has been living in.? She will need a two-level anterior cervical fusion at C5-6 and C6-7.? Since she is diabetic I will order a current hemoglobin A1c and a fructosamine level.? I explained to her that if her hemoglobin A1c is more than 7 or if her fructosamine level is over 294 we will have to work on getting those values down before surgical intervention.? I will see her again at preop.? She is due to see Dr. Moran on the of this month.? She thinks that he was going to go ahead and draw a h emoglobin A1c.? I will make sure that Dr. Jones gets this dictation to see that I am going to order the hemoglobin A1c early.? I told her to keep her appointment with Dr. Jones. Coding Level of Care Code Off vis,est,level 2 Diagnoses Cervical disc disorder at C5-C6 level with radiculopathy? M50.122
--- NOTE | 2022-03-26 13:22 | PN.HOSP_ITS ---
Subjective Subjective Consult requested by Dr. Fam for post operative medical management. Feeling tired post-op. Objective Data Objective Data Vital Signs: Vital Signs Temp Pulse Resp BP Pulse Ox O2 Del Method O2 Flow Rate 36.7 C 63 18 130/64 H 97 Room Air 4 03/26/22 12:44 03/26/22 12:44 03/26/22 12:44 03/26/22 12:44 03/26/22 12:44 03/26/22 12:44 03/26/22 12:08 Oxygen Flow Rate (L/min) 4 Oxygen Delivery Method Room Air Weight: 61 kg Body Mass Index (BMI) 23.1 Intake & Output: Intake and Output for Last 24 Hours 03/24/22 03/25/22 03/26/22 23:59 23:59 23:59 Intake Total 1212 / 1212 Output Total 400 / 400 Balance 812 / 812 Lab / Micro Data Result Diagrams: 03/22/22 15:34 03/22/22 15:34 Labs: Laboratory Results - last 24 hr 03/26/22 06:02: POC Glucose 281 H 03/26/22 11:01: POC Glucose 138 H Micro: Microbiology 03/22/22 15:34 Swab (Method) Nasal Screen MRSA/MSSA - Final Radiography Diagnostic Testing: Radiology Impression Lumbar Spine X-Ray 03/26/22 07:30 IMPRESSION: As above. Electronically Signed: Haider Wang MD at 9:51 EDT , Spine X-Ray 03/26/22 09:30 IMPRESSION: As above. Electronically Signed: Haider Wang MD at 9:51 EDT , Physical Exam Const alert and no apparent distress Resp normal respiratory effort, no retractions, no use of accessory muscles and clear to auscultation bilaterally Cardio regular rate, regular rhythm, S1 normal heart sound and S2 normal heart sound GI normal to inspection, nondistended, normoactive bowel sounds and soft to palpation Extremity normal to inspection Assessment & Plan Assessment/Plan (1) Lumbosacral radiculopathy at L4: PLAN: s/p laminectomy mgmt per spine PLAN: Plan DM2: * continue metformin, tradjenta * add SSI * anticipate DC home with home medications. HTN: * stable * continue HCTZ, losartan, amlodipine DW pt's dtr at bedside Thank for the consult. The hospital service will follow along during the patient's hospitalization. Charges/Coding Visit Charges Inpatient E&M: 92765 Subs Hosp L2
[2022-03-26] MEDS: Cefazolin 1 GM/50 ML BAG IV (16:13)
[2022-03-26 17:40] LABS: Bedside Glucose 167 mg/dL (74-106)
[2022-03-26] MEDS: metFORMIN HCl 1,000 MG Tablet 1000 MG PO (18:43)
[2022-03-26] MEDS: Atorvastatin Calcium 40 MG Tablet PO (21:46)
[2022-03-27] VITALS (7 sets, daily range): BP systolic 115–152; BP diastolic 48–80; PULSE 51–78; RESP 12–18; TEMP 36.5–36.8; O2SAT 88–99
[2022-03-27] MEDS: Cefazolin 1 GM/50 ML BAG IV (00:03)
[2022-03-27] MEDS: Gabapentin 300 MG Capsule PO (00:03)
[2022-03-27 00:45] LABS: Bedside Glucose 103 mg/dL (74-106)
[2022-03-27] MEDS: Acetaminophen 500 MG Tablet 1000 MG PO ×3 (06:40→21:05)
--- NOTE | 2022-03-27 07:14 | PN.HOSP_ITS ---
Subjective Subjective Has some back pain. Objective Data Objective Data Vital Signs: Vital Signs Temp Pulse Resp BP Pulse Ox O2 Del Method O2 Flow Rate 36.5 C L 61 16 137/68 H 96 Nasal Cannula 2 03/27/22 04:36 03/27/22 04:36 03/27/22 04:36 03/27/22 04:36 03/27/22 04:36 03/27/22 04:36 03/27/22 04:36 Oxygen Flow Rate (L/min) 2 Oxygen Delivery Method Nasal Cannula Weight: 61 kg Body Mass Index (BMI) 23.1 Intake & Output: Intake and Output for Last 24 Hours 03/25/22 03/26/22 03/27/22 23:59 23:59 23:59 Intake Total 2703.66 / 2703.66 1438.33 / 1438.33 Output Total 1100 / 1100 1950 / 1950 Balance 1603.66 / 1603.66 -511.67 / -511.67 Lab / Micro Data Result Diagrams: 03/22/22 15:34 03/22/22 15:34 Labs: Laboratory Results - last 24 hr 03/26/22 06:02: POC Glucose 281 H 03/26/22 11:01: POC Glucose 138 H 03/26/22 16:12: POC Glucose 167 H 03/27/22 00:12: POC Glucose 103 Micro: Microbiology 03/22/22 15:34 Swab (Method) Nasal Screen MRSA/MSSA - Final Radiography Diagnostic Testing: Radiology Impression Lumbar Spine X-Ray 03/26/22 07:30 IMPRESSION: As above. Electronically Signed: Haider Wang MD at 9:51 EDT , Spine X-Ray 03/26/22 09:30 IMPRESSION: As above. Electronically Signed: Haider Wang MD at 9:51 EDT , Physical Exam Const Constitutional Narrative: more alert. up in chair Cardio regular rate, regular rhythm, S1 normal heart sound and S2 normal heart sound GI normal to inspection, nondistended, normoactive bowel sounds, soft to palpation and non-tender Extremity normal to inspection Assessment & Plan Assessment/Plan (1) Lumbosacral radiculopathy at L4: PLAN: s/p laminectomy mgmt per spine PLAN: Plan DM2: * stable * continue metformin, tradjenta * add SSI * anticipate DC home with home medications. HTN: * stable * continue HCTZ, losartan, amlodipine Transient Hypoxia: lungs clear. incentive spirometer DW pt's dtr at bedside Medically stable for discharge. Home meds reconcilled. Will sign off. Please call with questions. Charges/Coding Visit Charges Inpatient E&M: 22618 Subs Hosp L2
[2022-03-27 07:45] LABS: Bedside Glucose 129 mg/dL (74-106)
[2022-03-27] MEDS: hydroCHLOROthiazide 12.5mg 12.5 MG PO (08:25)
[2022-03-27] MEDS: buPROPion (XL) 150 MG TABLET.XL PO (08:25)
[2022-03-27] MEDS: Ensure Clear 120 ML Liquid PO ×3 (08:25→21:05)
[2022-03-27] MEDS: metFORMIN HCl 1,000 MG Tablet 1000 MG PO ×2 (08:26→16:30)
[2022-03-27] MEDS: amLODIPine 10 MG Tablet PO (08:26)
[2022-03-27] MEDS: Fluoxetine HCl 40 MG CAPSULE PO (08:27)
[2022-03-27] MEDS: Pantoprazole Sodium 20 MG Tablet PO (08:27)
[2022-03-27] MEDS: LINAGLIPTIN 5 MG TABLET PO (08:27)
[2022-03-27] MEDS: Losartan Potassium 100 MG Tablet PO (08:27)
[2022-03-27 09:16] LABS: Bedside Glucose 145 mg/dL (74-106)
--- NOTE | 2022-03-27 09:41 | CASEMGMT ---
Social Work Prior to admission pt's family requesting post acute care at [facility] fro short term rehab prior to returning home. SW spoke with PT who confirms pt would be appropriate for Inpatient Rehab Unit. SW met with pt and introduced self and role of SW. Pt confirms that she plans for short term rehab prior to returning home. SW discussed both RU and SNF and pt states she wants to stay at [facility]. A list of RU and SNF providers including quality and resource use data and consistent with the patient?s preferred geographic region, medical needs, and insurance network were provided from the [employer] Guide. With pt permission, phone call to pt dgt Amara and discharge plan discussed. Amara confirms pt will need post accute care and SW discussed RU and SNF. Amara agreeable to RU and preferred provider is [facility] RU. Phone call to Deidre in RU and referral made. Return call from Deidre who confirms pt has been accepted and can admit when medically ready. Amara updated. Plan: [facility] Inpatient Rehab, when medically ready FELICITA Galan
--- NOTE | 2022-03-27 10:00 | NURSING ---
This RN is aware of Vitals taken by [facility] [employer].
[2022-03-27] MEDS: Insulin Lispro 100 UNIT/ML INSULN.PEN SC ×2 (11:19→16:33)
[2022-03-27 11:41] LABS: Bedside Glucose 164 mg/dL (74-106)
--- NOTE | 2022-03-27 11:58 | CASEMGMT ---
TACHO CABALLERO made tc to discuss CRAWFORD form with patient dtr Amara at [phone]. RN ADA explained CRAWFORD form, patient dtr voiced understanding. Pt dtr gave verbal consent for signature on form and filed in chart. Dodie LUIS verified as well. Pt provided with a copy of signed CRAWFORD form. Patient dtr had no further questions or concerns at this time.
--- NOTE | 2022-03-27 12:12 | PCM.PN.ORT ---
Subjective Subjective Postop day #1. Mrs. Felton is seen on rounds. She related right away that her anterior left thigh pain was completely resolved. Dressings dry. Neurologically she is intact in both lower extremities. She is alert and well oriented. Is scheduled to be moved to the transitional care unit in probably today or possibly tomorrow. Progress is satisfactory. Objective Data Objective Data Vital Signs: Vital Signs Temp Pulse Resp BP Pulse Ox O2 Del Method O2 Flow Rate 98.1 F 53 L 12 139/52 H 96 Nasal Cannula 2 03/27/22 08:20 03/27/22 08:20 03/27/22 08:20 03/27/22 08:20 03/27/22 09:11 03/27/22 09:11 03/27/22 09:11 Oxygen Flow Rate (L/min) 2 Oxygen Delivery Method Nasal Cannula Weight: 134 lb 7.712 oz Body Mass Index (BMI) 23.1 Intake & Output: Intake and Output for Last 24 Hours 03/25/22 03/26/22 03/27/22 23:59 23:59 23:59 Intake Total 2703.66 / 2703.66 1738.33 / 1738.33 Output Total 1100 / 1100 2050 / 2050 Balance 1603.66 / 1603.66 -311.67 / -311.67 Lab / Micro Data Result Diagrams: 03/22/22 15:34 03/22/22 15:34 Labs: Laboratory Results - last 24 hr 03/26/22 16:12: POC Glucose 167 H 03/27/22 00:12: POC Glucose 103 03/27/22 06:45: POC Glucose 129 H 03/27/22 08:19: POC Glucose 145 H 03/27/22 11:16: POC Glucose 164 H Micro: Microbiology 03/22/22 15:34 Swab (Method) Nasal Screen MRSA/MSSA - Final
--- NOTE | 2022-03-27 15:40 | CASEMGMT ---
Social Work SW met with physician who feels it would be more beneficial for pt to go to TCU than RU. TCU is able to accept. Physician notified and SW requested physician complete Transfer to extended care orders and medication list for discharge. Pt can discharge to TCU when these orders are complete. Phone call to pt dgt Amara and updated on the change. Amara agreeable. Physician paged to discuss discharge orders. No return call. Plan: TCU, when medically ready FELICITA Galan
[2022-03-27 16:55] LABS: Bedside Glucose 184 mg/dL (74-106)
--- NOTE | 2022-03-27 17:52 | NURSING ---
paged Dr. Fam via terminal makeup operator as waiting on transfer to extended care facility paperwork and med list to sent pt to tcu.
--- NOTE | 2022-03-27 18:48 | NURSING ---
called Dr. Fam via boarding machine operator as no return call to page. informed Dr. Fam of paperwork needed including transfer to extended care facility report and signed med list. Dr. Fam stated he was not aware he needed to do these thing and this is why he consults the hospitalist. Discussed admitting physician usually is the physician that does the transfer to extended care facility report even if hospitalists assist with the med list. States he will no longer consult the hospitalist or transfer patients to these facilities. Dr. Fam states he is not at the hospital to complete these forms. States to have Dr. Edgar call him. Dr. Edgar sent text message
--- NOTE | 2022-03-27 18:51 | NURSING ---
received phone call from Dr. Fam asking why he was not informed of the need for this paperwork earlier. Explained that per SW note he had been informed of the need for these forms at time of note. Also informed Dr. Fam per primary RN that he had told her when he was rounding on patient that he was going to go back to the office to do the paperwork. Informed by Dr. Fam that patient is to stay the night and forms would be addressed tomorrow.
--- NOTE | 2022-03-27 18:52 | NURSING ---
received return call from Dr. Edgar. updated on formed needed for discharge to TCU. Discussed converstation had with Dr. Fam. This nurse was informed it is up to admitting physician to complete the transfer to extended care facility, that Dr. Edgar had updated/adjusted the home meds in the computer but he had also signed off the patient.
[2022-03-27] MEDS: Atorvastatin Calcium 40 MG Tablet PO (21:05)
[2022-03-27 21:31] LABS: Bedside Glucose 136 mg/dL (74-106)
[2022-03-28 02:00] VITALS: BP 144/67; PULSE 65; RESP 16; TEMP 36.8; O2SAT 95
[2022-03-28] MEDS: Acetaminophen 500 MG Tablet 1000 MG PO ×2 (05:48→13:14)
[2022-03-28 06:40] LABS: Bedside Glucose 141 mg/dL (74-106)
[2022-03-28 08:30] VITALS: BP 132/73; PULSE 70; RESP 18; TEMP 36.9; O2SAT 96
[2022-03-28] MEDS: metFORMIN HCl 1,000 MG Tablet 1000 MG PO (08:46)
[2022-03-28 09:41] VITALS: O2SAT 92
[2022-03-28] MEDS: amLODIPine 10 MG Tablet PO (10:42)
[2022-03-28] MEDS: LINAGLIPTIN 5 MG TABLET PO (10:42)
[2022-03-28] MEDS: Losartan Potassium 100 MG Tablet PO (10:42)
[2022-03-28] MEDS: Fluoxetine HCl 40 MG CAPSULE PO (10:42)
[2022-03-28] MEDS: Pantoprazole Sodium 20 MG Tablet PO (10:42)
[2022-03-28] MEDS: hydroCHLOROthiazide 12.5mg 12.5 MG PO (10:42)
[2022-03-28] MEDS: buPROPion (XL) 150 MG TABLET.XL PO (10:43)
[2022-03-28] MEDS: Ensure Clear 120 ML Liquid PO ×2 (10:44→13:14)
[2022-03-28] MEDS: Insulin Lispro 100 UNIT/ML INSULN.PEN SC (11:36)
--- NOTE | 2022-03-28 12:35 | CASEMGMT ---
Social Work SW spoke with Physician who feels pt is ready for discharge at this time. Discharge orders completed and faxed to TCU. VM left with pt olga lidia Maloney informing of transfer to TCU. Disposition: TCU, skilled level of care FELICITA Palacios
[2022-03-28 13:08] VITALS: BP 136/58; PULSE 70; RESP 16; TEMP 36.8; O2SAT 94
--- NOTE | 2022-03-28 13:57 | NURSING ---
REPORT GIVEN TO TCU
--- NOTE | 2022-03-28 14:13 | CASEMGMT ---
All d/c orders completed for patient for TCU. patient is on her way to TCU. Aelxia KEARNEY
[2022-03-29 08:30] LABS: Bedside Glucose 267 mg/dL (74-106)
[2022-03-29 08:30] LABS: Bedside Glucose 272 mg/dL (74-106)
== END 2022-03-28 14:12 | disposition skilled nursing facility (03) ==
LOC: SDC 12:15 → MS3 12:15
PROVIDERS: Anesthesiology; Admitting Provider Orthopaedic Surgery; PCP Family Medicine; Referring Provider Orthopaedic Surgery; Visit Provider Orthopaedic Surgery
PROC: (CPT 63030; principal; 2022-03-26 07:00)
DX: M48.061 Spinal stenosis, lumbar region without neurogenic claudication (principal); E11.42 Type 2 diabetes mellitus with diabetic polyneuropathy; M54.16 Radiculopathy, lumbar region; M54.17 Radiculopathy, lumbosacral region; Z87.891 Personal history of nicotine dependence; Z79.899 Other long term (current) drug therapy; Z79.84 Long term (current) use of oral hypoglycemic drugs; F32.A Depression, unspecified; E78.00 Pure hypercholesterolemia, unspecified; I10 Essential (primary) hypertension; G25.0 Essential tremor; R09.02 Hypoxemia
CPT/HCPCS: 63030; 00630; 36415; 72020; 72100; 80048; 82962; 83735; 85025; 86703; 86706; 86708; 86803; 87077; 87081; 87426; 96361; 96365; 96366; 97162; 97530; 99218; 99251; J7120; G0378; G0463; J2405; J3475

== ENCOUNTER 2022-03-28 14:15 | Inpatient (IN) | payer MEDICARE, OTHER, SELFPAY ==
[2022-03-28 14:45] VITALS: BP 130/80; PULSE 78; RESP 18; TEMP 36.2; O2SAT 98; BMI 23.2
[2022-03-28] MEDS: Petrolatum 33% Tube 1 APPLIC TOPICAL (18:16)
[2022-03-28] MEDS: metFORMIN HCl 1,000 MG Tablet 1000 MG PO (18:17)
--- NOTE | 2022-03-28 20:45 | HP.PCM_ITS ---
[facility] - General General Date of Admission: 03/28/22 Date of Service: 03/28/22 Chief Complaint: Here for rehab. [facility] Temi HENRY, is a 82 Female who presents with followin03/26/2022 Dr. Fam performed repeat laminectomy medial facetectomy L3-4 on left. 03/26/2022 Tired post-op. 03/27/2022 Some back pain. Radicular symptoms resolved. Patient lives alone, TCU on discharge. 03/28/2022 Admit to TCU with debility, here for rehabilitation, strengthening, prior to discharge home alone. [facility] Medical History Ambulates with cane Arthritis Back pain Cancer Cancer Carpal tunnel syndrome Depression Diabetes Dietary restriction Fecal incontinence Forgetfulness GI bleeding High cholesterol History of hiatal hernia History of pain when walking History of stress test Hx of cataract Hypertension Hypertension Injury of back Kidney stone on left side Liver lesion, right lobe Migraine headache Multiple lung nodules Nausea Non-smoker Normal stress echocardiogram Open wound Pancreatitis Pancreatitis Peripheral neuropathy Type II diabetes mellitus Wears glasses Home Medications atorvastatin 40 mg tablet 40 mg PO QHS cholestrol 02/14/14 [History Last Taken 10 Days Ago ~04/22/21] gabapentin 300 mg capsule 300 mg PO QHS PRN NERVE PAIN 02/14/14 [History Last Taken 05/01/21] tolterodine 2 mg capsule,extended release 24 hr (Detrol LA) 2 mg PO QHS overactive bladder 02/14/14 [History Last Taken 05/01/21] sitagliptin 100 mg tablet (Januvia) 100 mg PO DAILY diabetes 04/06/18 [History Last Taken 04/29/21] magnesium 250 mg tablet 250 mg PO DAILY Supplement 11/14/20 [History Last Taken 04/25/21] valsartan 320 mg tablet 320 mg PO DAILY Cholesterol 04/10/21 [History Last Taken 07/05/21 06:30] amlodipine 10 mg tablet 10 mg PO DAILY bp 05/02/21 [History Last Taken 03/26/22 05:00] bupropion HCl 150 mg 24 hr tablet, extended release 150 mg PO DAILY mood 05/02/21 [History Last Taken 03/26/22 05:00] fluoxetine 40 mg capsule 40 mg PO DAILY depression 05/02/21 [History Last Taken 03/26/22 05:00] hydrochlorothiazide 12.5 mg capsule 12.5 mg PO DAILY bp/fluid 05/02/21 [History Last Taken 10 Days Ago ~04/22/21] metformin 1,000 mg tablet 1,000 mg PO BID dm 05/02/21 [History Last Taken 05/01/21] hydrocortisone 2.5 % topical cream 1 applic topical BID PRN Rash 06/28/21 [History Last Taken Unknown] clobetasol 0.05 % scalp solution 1 applic topical PRN PRN Skin Cleansing 02/23/22 [History Last Taken Unknown] meloxicam 15 mg tablet 15 mg PO DAILY Arthritis 02/23/22 [History Last Taken Unknown] nystatin 100,000 unit/gram topical powder 1 applic topical PRN PRN Rash 02/23/22 [History Last Taken Unknown] calcium carbonate 600 mg-vitamin D3 5 mcg (200 unit) tablet 1 tab PO DAILY Supp lement 03/21/22 [History Last Taken Unknown] omeprazole 20 mg capsule,delayed release 20 mg PO DAILY GERD 03/21/22 [History Last Taken 03/26/22 05:00] Allergy/AdvReac Type Severity Reaction Status Date / Time codeine Allergy Anaphylaxis Verified 03/26/22 06:22 crab Allergy Swollen Verified 03/28/22 10:33 lymph glands hydrocodone bitartrate AdvReac Vomiting Verified 03/26/22 06:22 [From Vicodin] zolpidem tartrate AdvReac Other Verified 03/26/22 06:22 [From Ambien] Family History Grandfather Parkinson disease Other CVA (cerebral vascular accident) Surgical History H/O: hysterectomy History of 2 sections History of back surgery History of cholecystectomy Hx of cystoscopy Hx of detached retina repair Hx of total knee replacement Social History (Updated 03/28/22 @ 20:[address] Romulo Infante MD) household members: none Smoking Status: Never smoker how long ago did patient quit smoking: stoped in 1970 used when she was in her teens alcohol intake: never substance use type: does not use ROS Constitutional Constitutional: Denies chills, fever(s) or weight gain ENT HEENT: Denies headache(s), nasal congestion or nasal discharge Cardiovascular Cardiovascular: Denies chest pain or palpitations Respiratory/Chest Respiratory/Chest: Denies cough, excessive phlegm production or shortness of breath with exertion Gastrointestinal Gastrointestinal: Denies abdominal pain, nausea or vomiting Genitourinary Genitourinary: Denies dysuria Musculoskeletal Musculoskeletal: Denies joint pain or joint swelling Integumentary Integumentary: Denies rash or wounds Neurologic Neurologic: Denies focal weakness, numbness or tingling Psychiatric Psychiatric: Denies anxiety, auditory hallucinations, depression, homicidal ideation or suicidal ideation Vital Signs Vital Signs Vital Signs: 03/28/22 14:45 03/28/22 14:45 Temperature 97.1 F L Temperature Source Temporal Pulse Rate 78 78 Pulse Rhythm Regular Pulse Strength Normal (2+) Respiratory Rate 18 Respiratory Effort Normal Non-Labored Respiratory Depth Normal Respiratory Pattern Normal Blood Pressure 130/80 H Blood Pressure Mean 96 Blood Pressure Source Monitor Blood Pressure Position Sitting Blood Pressure Location Left Arm Pulse Ox 98 Oxygen Delivery Method Room Air Room Air Weight Weight: 61.371 kg Body Mass Index (BMI) 23.2 Physical Exam Const alert General Appearance: cooperative HEENT normocephalic Eyes PERRL and EOMs intact bilaterally Neck supple, no JVD and no carotid bruits Resp normal respiratory effort, normal air movement and clear to auscultation bilater ally Cardio regular rate and regular rhythm GI normal to inspection, nondistended, normoactive bowel sounds, non-tender and non-distended Extremity normal capillary refill General Extremity: Negative for edema Skin no rashes or lesions noted General Skin Exam: no breakdown Psych affect normal Appearance: appropriate Results Lab / Micro Data Micro: Microbiology 03/28/22 15:28 Nasal Secretion SARS-CoV-2 Antigen (Rapid) - Final Assessment & Plan Assessment/Plan (1) Debility: (2) Lumbar back pain with radiculopathy affecting left lower extremity: (3) Diabetes mellitus: (4) Hypertension: (5) Hyperlipidemia: (6) Diabetic polyneuropathy: (7) Overactive bladder: (8) Hypomagnesemia: (9) Depression: (10) Osteoarthritis: PLAN: Plan 82 year old female with below past medical history hospitalized for repeat laminectomy medial facetectomy L3-4 on left 03/26/[address] Fam, admitted to TCU with debility, here for rehabilitation, strengthening, prior to discharge home alone. * Debility - PT/OT. * Pain - Tylenol 1000mg q6h prn pain (1-10). * Bowel - Senna/colace 1 tablet bid, Dulcolax 10mg daily prn. * Adult immunization - Administer pneumonia vaccine, covid19 vaccine, flu vacci ne as appropriate. * DVT prophylaxis - Hold. * Hypertension - Losartan 100mg daily, HCTZ 12.5mg daily, Amlodipine 10mg daily. * Hyperlipidemia - Atorvastatin 40mg qhs. * Depression - Bupropion XL 150mg daily, Fluoxetine 40mg daily, stable chronic continuous churn buttermaker use, GDR not recommended. * Calcium deficiency - Calcium/D 1 tablet daily. * Diabetic polyneuropathy - Gabapentin 300mg qhs prn. * Hemorrhoids - HC 2.5% topical bid thru 04/18/2022. * Diabetes Mellitus II - Metformin 1000mg bidcm, Tradjenta 5mg daily. * Hypomagnesemia - Magnesium chloride 128mg daily. * GERD - Pantoprazole 20mg daily. * Skin irritation - Eucerin topical bid. * Overactive bladder - Tolterodine 2mg qhs.
[2022-03-28] MEDS: Tolterodine Tartrate 2 MG CAP.SA PO (21:23)
[2022-03-28] MEDS: Atorvastatin Calcium 40 MG Tablet PO (21:23)
[2022-03-28] MEDS: Senna/Docusate Sodium 1 Tablet PO (21:32)
[2022-03-28] MEDS: Acetaminophen 500 MG Tablet 1000 MG PO (21:35)
[2022-03-29 05:29] LABS: Absolute Lymphocyte Count 2.29 X10^3/uL (0.83-4.51); Absolute Neutrophil Count 4.8 X10^3/uL (2.0-7.7); Basophil# 0.01 X10^3/uL; Basophil% 0.1 % (0-1); Eosinophil# 0.28 X10^3/uL; Eosinophils% 3.3 % (0-5); Hematocrit 37.3 % (37-47); Hemoglobin 11.6 g/dL (12.0-15.0); Lymphocyte # 2.29 X10^3/ul (0.83-4.51); Lymphocyte % 27.4 % (19-41); Mean Corp Hgb Conc 31.1 g/dL (32-36); Mean Corpuscular Hgb 26.1 pg (27.0-32.0); Mean Corpuscular Volume 83.8 fL (81-99); Mean Platelet Vol. 11.8 fl (6.2-12.0); Monocyte# 0.98 X10^3/uL; Monocyte% 11.7 % (0-10); NRBC Flagged by Analyzer 0 % (0-5); Neutrophil # 4.77 X10^3/uL (2.7-7.7); Neutrophil % 57.1 % (47-70); Platelet Count 138 K/mm3 (150-450); RBC Distribution Width CV 14.6 % (11.6-14.6); RBC Distribution Width SD 44.4 fl (35.1-43.9); Red Blood Count 4.45 M/mm3 (4.2-5.4); White Blood Count 8.4 K/mm3 (4.4-11.0)
[2022-03-29 05:53] LABS: Anion Gap 7 (5-15); BUN 22 mg/dL (7-18); BUN/Creat Ratio 22.9 RATIO (10-20); Calcium,Total 9.2 mg/dL (8.5-10.1); Chloride 104 mmol/L (98-107); Creatinine, Serum 0.96 mg/dL (0.55-1.02); EST Glomerular Filtration Rate 59 mL/min (>60); Est Glom Filt Rate - Afr Amer 72 mL/min (>60); Estimated Creatinine Clearance 39.69 ml/min; Glucose 160 mg/dL (74-106); Potassium 4.2 mmol/L (3.5-5.1); Sodium Level 140 mmol/L (136-145)
[2022-03-29] MEDS: Fluoxetine HCl 40 MG CAPSULE PO (06:38)
[2022-03-29] MEDS: Senna/Docusate Sodium 1 Tablet PO (06:38)
[2022-03-29] MEDS: hydroCHLOROthiazide 12.5mg 12.5 MG PO (06:39)
[2022-03-29] MEDS: amLODIPine 10 MG Tablet PO (06:39)
[2022-03-29] MEDS: buPROPion (XL) 150 MG TABLET.XL PO (06:40)
[2022-03-29] MEDS: Magnesium Chloride 64 MG Delay Rel.Tablet 128 MG PO (06:40)
[2022-03-29] MEDS: Pantoprazole Sodium 20 MG Tablet PO (06:40)
[2022-03-29] MEDS: Losartan Potassium 100 MG Tablet PO (06:41)
[2022-03-29] MEDS: LINAGLIPTIN 5 MG TABLET PO (06:41)
[2022-03-29] MEDS: Petrolatum 33% Tube 1 APPLIC TOPICAL ×2 (06:44→17:30)
[2022-03-29] MEDS: Calcium Carb/Vitamin D 1 TABLET Tablet PO (06:45)
[2022-03-29] MEDS: metFORMIN HCl 1,000 MG Tablet 1000 MG PO ×2 (06:46→17:29)
[2022-03-29 06:51] LABS: Bedside Glucose 143 mg/dL (74-106)
[2022-03-29] MEDS: Tuberculin,Purif.prot.deriv. 50 TU/ML Vial 0.1 ML ID (09:30)
[2022-03-29 10:19] VITALS: BP 114/63; PULSE 77; RESP 17; TEMP 36.6; O2SAT 97
--- NOTE | 2022-03-29 10:55 | PCM.PN.DRR ---
TCU RX Drug Regimen Review Subjective: 82 YOF admitted to TCU for strengthening and rehabilitation prior to DC home alone. The patient is admitted S/P hospitalization after having a laminectomy performed. Objective: Allergies codeine Allergy (Verified 03/26/22 06:22) Anaphylaxis crab Allergy (Verified 03/28/22 10:33) Swollen lymph glands hydrocodone bitartrate [From Vicodin] Adverse Reaction (Verified 03/26/22 06:22) Vomiting zolpidem tartrate [From Ambien] Adverse Reaction (Verified 03/26/22 06:22) Other hallucinations Current Medications Generic Name Dose Route Start Last Admin Trade Name Freq PRN Reason Stop Dose Admin Acetaminophen 1,000 mg 03/28/22 21:00 03/28/22 21:35 Acetaminophen 500 Mg Tablet PO 1,000 mg Q6H PRN PRN Administration Pain Score 1-10 Amlodipine Besylate 10 mg 03/29/22 06:00 03/29/22 06:39 Amlodipine 10 Mg Tablet PO 10 mg DAILY PARAM Administration Atorvastatin Calcium 40 mg 03/28/22 22:00 03/28/22 21:23 Atorvastatin Calcium 40 Mg Tablet PO 40 mg QHS PARAM Administration Bisacodyl 10 mg 03/28/22 21:00 Bisacodyl 5 Mg Tablet PO DAILY PRN Constipation Bupropion HCl 150 mg 03/29/22 06:00 03/29/22 06:40 Bupropion (Xl) 150 Mg Tablet.Xl PO 150 mg DAILY PARAM Administration Calcium/Vitamin D 1 tablet 03/29/22 08:00 03/29/22 06:45 Calcium Carb/Vitamin D 1 Tablet Tablet PO 1 tablet DAILYCM PARAM Administration Fluoxetine HCl 40 mg 03/29/22 06:00 03/29/22 06:38 Fluoxetine Hcl 40 Mg Capsule PO 40 mg DAILY PARAM Administration Gabapentin 300 mg 03/28/22 14:55 Gabapentin 300 Mg Capsule PO QHS PRN NERVE PAIN Hydrochlorothiazide 12.5 mg 03/29/22 06:00 03/29/22 06:39 Hydrochlorothiazide 12.5mg PO 12.5 mg DAILY PARAM Administration Hydrocortisone 1 applic 03/28/22 14:55 Hydrocortisone 2.5% Crm TOPICAL 04/18/22 14:56 BID PRN Rash Protocol Linagliptin 5 mg 03/29/22 06:00 03/29/22 06:41 Linagliptin 5 Mg Tablet PO 5 mg DAILY PARAM Administration Losartan Potassium 100 mg 03/29/22 06:00 03/29/22 06:41 Losartan Potassium 100 Mg Tablet PO 100 mg DAILY PARAM Administration Magnesium Chloride 128 mg 03/29/22 06:00 03/29/22 06:40 Magnesium Chloride 64 Mg Delay Rel.Tablet PO 128 mg DAILY PARAM Administration Metformin HCl 1,000 mg 03/28/22 17:00 03/29/22 06:46 Metformin Hcl 1,000 Mg Tablet PO 1,000 mg BIDCM PARAM Administration Multi-Ingredient Cream 1 applic 03/28/22 18:00 03/29/22 06:44 Petrolatum 33% Tube TOPICAL 1 applic BID PARAM Administration Protocol Pantoprazole Sodium 20 mg 03/29/22 06:00 03/29/22 06:40 Pantoprazole Sodium 20 Mg Tablet PO 20 mg DAILY PARAM Administration Senna/Docusate Sodium 1 tablet 03/28/22 21:15 03/29/22 06:38 Senna/Docusate Sodium 1 Tablet PO 1 tablet BID PARAM Administration Sodium Chloride 10 - 40 ml 03/28/22 15:19 0.9% Saline Lock 10 Ml Syringe IV UD PRN SALINE FLUSH Tolterodine Tartrate 2 mg 03/28/22 22:00 03/28/22 21:23 Tolterodine Tartrate 2 Mg Cap.Sa PO 2 mg QHS PARAM Administration Tuberculin PPD 0.1 ml 04/05/22 10:00 Tuberculin,Purif.Prot.Deriv. 50 Tu/Ml Vial ID 04/05/22 10:01 X1 ONE Problem List (Last Reviewed 03/28/22 @ 20:[address] Romulo Infante MD) Osteoarthritis (Acute) Depression (Acute) Hypomagnesemia (Acute) Overactive bladder (Acute) Diabetic polyneuropathy (Acute) Hyperlipidemia (Acute) Hypertension (Chronic) Diabetes mellitus (Acute) Lumbar back pain with radiculopathy affecting left lower extremity (Acute) Debility (Acute) Vital Signs Temp Pulse Resp BP Pulse Ox O2 Del Method 97.8 F 77 17 114/63 97 Room Air 03/29/22 10:19 03/29/22 10:19 03/29/22 10:19 03/29/22 10:19 03/29/22 10:19 03/29/22 10:19 Oxygen Delivery Method Room Air Weight: 61.371 kg Body Mass Index (BMI) 23.2 Sodium 140 mmol/L (136-145) 03/29/22 05:10 Potassium 4.2 mmol/L (3.5-5.1) 03/29/22 05:10 Chloride 104 mmol/L (98-107) 03/29/22 05:10 Carbon Dioxide 29.0 mmol/L (21.0-32.0) 03/29/22 05:10 Anion Gap 7 (5-15) 03/29/22 05:10 BUN 22 mg/dL (7-18) H 03/29/22 05:10 Creatinine 0.96 mg/dL (0.55-1.02) 03/29/22 05:10 Est GFR (MDRD) Af Amer 72 mL/min (>60) 03/29/22 05:10 Est GFR (MDRD) Non-Af 59 mL/min (>60) L 03/29/22 05:10 BUN/Creatinine Ratio 22.9 RATIO (10-20) H 03/29/22 05:10 Glucose 160 mg/dL (74-106) H 03/29/22 05:10 Assessment/Plan: 1. Pain: Tylenol 1000mg PO Q6h PRN Pain 1-10. Please continue to monitor for increased/decreased S/S pain, PRN medication usage, LFT as clinically indicated. - The patient has utilized 1 dose of acetaminophen since admission. Pre-medication pain score rated 5/10 and patient was resting with eyes closed at time of post assessment. Pain control appears adequate at this time. 2. HTN/HLD: Norvasc 10mg PO Daily, Lipitor 40mg PO QHS, HCTZ 12.5mg PO Daily, Losartan 100mg PO Daily. Please continue to monitor BP (range 114-130/ 63-80), pulse (range 77-78 BPM), electrolytes (WNL), lipid panel annually or sooner as clinically indicated. 3. Type II Diabetes: Metformin 1000mg PO BID, Tradjenta 5mg PO Daily. Please continue to monitor blood glucose (POC = 143), A1c (last 6.8% on 03/05), S/S hypoglycemia. The patient is on correct doses of medication based on renal function/GFR. 4. Diabetic Polyneuropathy: Gabapentin 300mg PO QHS PRN nerve Pain. This is a Beer's Criteria medication which can increase the risk of falls in patients >65 years of age. Please continue to monitor the patient closely for falls, assess risk vs. benefit should problems arise. The patient is on a correct dose/ frequency of this medication based on renal function. 5. Overactive Bladder: Detrol LA 2mg PO QHS. Please continue to monitor for improvement in bladder symptoms. This is a Beer's Criteria medication and can increase WATER PURIFICATION CHEMIST effects. it does not appear patient is affected at this time, please continue to monitor to assess risk vs. benefit of continued use. 6. GERD: Protonix 20mg PO Daily. Please continue to monitor for upset stomach, medication effectiveness. may also encourage non-pharmacologic treatments to help minimize GERD exacerbations and flare-ups as well. 7. Hemorrhoids: Hydrocortisone Cream 2.5% Cream topically BID thru 04/18/22. Please continue to monitor for medication effectiveness, skin irritation. 8. Bowel: Senna/Docusate 1 tab PO BID, Dulcolax 10mg PO Daily PRN. Please continue to monitor for increased/decreased constipation and/or diarrhea. To date, the patient has not had a bowel movement. Consider administering PRN medication if the patient has not had a bowel movement in >48hr, thank you. 9. General Wellness: Os-Noman + D 1 tablet PO Daily, magnesium chloride 2 tab PO Daily. Please continue to monitor labs as clinically indicated. 10. Skin Integrity: Eucerin Cream topically BID. Please continue to assess skin for evidence of skin breakdown, sore formations. Assessment/Plan for indications treated with psychotropic medications: 11. Depression: Bupropion XL 150mg PO daily, Prozac 40mg PO Daily. The patient has been on these as chronic, long-term use. Please assess if GDR is clinically appropriate, thank you. Prozac is a Beer's criteria medication which can increase the risk of fall/fractures in the elderly. Please continue to monitor the patient for increased risk of falls and assess the risk vs. benefit of use should problems arise. Medical chart and medication regimen reviewed. The following medication irregularities or issues were identified: 1. The patient is on multiple medications that can increase falls in patients older than 65 (Gabapentin, Prozac). Please continue to closely monitor patient and assess the risk vs. benefit should problems arise, thank you. Date of Note:: 03/29/22
--- NOTE | 2022-03-29 13:43 | NURSING ---
THERAPY CAME TO THIS NURSE AND STATED PT ASKED FOR PURSE AND WAS GIVEN IT. PT THEN PULLED OUT CLEAR CONTAINER WITH 2 BLUE PILLS IN IT AND STATED SHE NEEDED HER TYLENOL. THIS NURSE TO ROOM AND ASKED PT TO SEE BOTTLE. PT STATED IT WAS HER TYLENOL THAT SHE CARRY WITH HER IN CLEAR BOTTLE. (NO WRITING ON BOTTLE). ASKED PT IF I COULD LOCK IT UP IN MED BOX TILL SHE GOES HOME AND EDUCATED HER ON TAKING MEDS WITH OUT US KNOWING AND HOW IT COULD EFFECT HER. PT UNDER STOOD. PT OKED THIS NURSE TO LOCK IT UP IN MED BOX.
--- NOTE | 2022-03-29 15:54 | CASEMGMT ---
Social Work Met with patient to complete initial assessment. Introduced self and role. Verified contacts. Discussed code status and MOLST form. Pt confirms DNR-CC - purple bracelet placed, DNR form placed in . folder. MOLST completed and placed in foldapril. Educated to Medicare benefit and secondary insurance. Pts goal is to return home alone. 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 SW to continue to follow for DC planning. Chula Allen, PATTERN VAULT CLERK POLE FRAME CONSTRUCTION WORKER
[2022-03-29] MEDS: Acetaminophen 500 MG Tablet 1000 MG PO (16:35)
[2022-03-29] MEDS: Atorvastatin Calcium 40 MG Tablet PO ×2 (21:17)
[2022-03-29] MEDS: Tolterodine Tartrate 2 MG CAP.SA PO (21:18)
[2022-03-30] MEDS: amLODIPine 10 MG Tablet PO (06:10)
[2022-03-30] MEDS: buPROPion (XL) 150 MG TABLET.XL PO (06:10)
[2022-03-30] MEDS: Fluoxetine HCl 40 MG CAPSULE PO (06:10)
[2022-03-30] MEDS: Pantoprazole Sodium 20 MG Tablet PO (06:10)
[2022-03-30] MEDS: hydroCHLOROthiazide 12.5mg 12.5 MG PO (06:10)
[2022-03-30] MEDS: Magnesium Chloride 64 MG Delay Rel.Tablet 128 MG PO (06:10)
[2022-03-30] MEDS: LINAGLIPTIN 5 MG TABLET PO (06:10)
[2022-03-30] MEDS: Losartan Potassium 100 MG Tablet PO (06:10)
[2022-03-30] MEDS: Petrolatum 33% Tube 1 APPLIC TOPICAL ×2 (06:13→16:46)
[2022-03-30 06:41] LABS: Bedside Glucose 164 mg/dL (74-106)
[2022-03-30] MEDS: Calcium Carb/Vitamin D 1 TABLET Tablet PO (08:18)
[2022-03-30] MEDS: metFORMIN HCl 1,000 MG Tablet 1000 MG PO ×2 (08:18→16:45)
[2022-03-30 12:36] VITALS: PULSE 77; RESP 16; O2SAT 96
[2022-03-30] MEDS: Senna/Docusate Sodium 1 Tablet PO (16:45)
[2022-03-30] MEDS: Tolterodine Tartrate 2 MG CAP.SA PO ×2 (20:06→20:10)
[2022-03-30] MEDS: Acetaminophen 500 MG Tablet 1000 MG PO (20:10)
[2022-03-31] MEDS: Losartan Potassium 100 MG Tablet PO (05:40)
[2022-03-31] MEDS: Pantoprazole Sodium 20 MG Tablet PO (05:40)
[2022-03-31] MEDS: Magnesium Chloride 64 MG Delay Rel.Tablet 128 MG PO (05:40)
[2022-03-31] MEDS: amLODIPine 10 MG Tablet PO (05:40)
[2022-03-31] MEDS: hydroCHLOROthiazide 12.5mg 12.5 MG PO (05:40)
[2022-03-31] MEDS: Senna/Docusate Sodium 1 Tablet PO (05:40)
[2022-03-31] MEDS: LINAGLIPTIN 5 MG TABLET PO (05:41)
[2022-03-31] MEDS: Fluoxetine HCl 40 MG CAPSULE PO (05:41)
[2022-03-31] MEDS: buPROPion (XL) 150 MG TABLET.XL PO (05:41)
[2022-03-31] MEDS: Petrolatum 33% Tube 1 APPLIC TOPICAL ×2 (05:46→16:32)
[2022-03-31 06:35] LABS: Bedside Glucose 111 mg/dL (74-106)
[2022-03-31] MEDS: metFORMIN HCl 1,000 MG Tablet 1000 MG PO ×2 (07:46→16:31)
[2022-03-31] MEDS: Calcium Carb/Vitamin D 1 TABLET Tablet PO (07:46)
[2022-03-31 14:00] VITALS: BP 113/62; PULSE 79; RESP 16; TEMP 36.8; O2SAT 98
[2022-03-31] MEDS: Atorvastatin Calcium 40 MG Tablet PO (19:48)
[2022-03-31] MEDS: Acetaminophen 500 MG Tablet 1000 MG PO (19:50)
[2022-03-31 20:00] VITALS: O2SAT 97
[2022-04-01] MEDS: buPROPion (XL) 150 MG TABLET.XL PO (06:06)
[2022-04-01] MEDS: Magnesium Chloride 64 MG Delay Rel.Tablet 128 MG PO (06:06)
[2022-04-01] MEDS: hydroCHLOROthiazide 12.5mg 12.5 MG PO (06:07)
[2022-04-01] MEDS: Pantoprazole Sodium 20 MG Tablet PO (06:07)
[2022-04-01] MEDS: Fluoxetine HCl 40 MG CAPSULE PO (06:07)
[2022-04-01] MEDS: amLODIPine 10 MG Tablet PO (06:07)
[2022-04-01] MEDS: LINAGLIPTIN 5 MG TABLET PO (06:07)
[2022-04-01] MEDS: Losartan Potassium 100 MG Tablet PO (06:07)
[2022-04-01] MEDS: Petrolatum 33% Tube 1 APPLIC TOPICAL ×2 (06:09→17:23)
[2022-04-01 06:50] LABS: Bedside Glucose 126 mg/dL (74-106)
[2022-04-01] MEDS: metFORMIN HCl 1,000 MG Tablet 1000 MG PO ×2 (07:48→17:24)
[2022-04-01] MEDS: Calcium Carb/Vitamin D 1 TABLET Tablet PO (07:48)
[2022-04-01 14:32] VITALS: BP 118/64; PULSE 77; RESP 16; TEMP 36.1; O2SAT 98
[2022-04-01] MEDS: Atorvastatin Calcium 40 MG Tablet PO (20:22)
[2022-04-01] MEDS: Acetaminophen 500 MG Tablet 1000 MG PO (20:22)
[2022-04-01] MEDS: Tolterodine Tartrate 2 MG CAP.SA PO (20:22)
[2022-04-02] MEDS: Losartan Potassium 100 MG Tablet PO (05:58)
[2022-04-02] MEDS: LINAGLIPTIN 5 MG TABLET PO (05:59)
[2022-04-02] MEDS: Fluoxetine HCl 40 MG CAPSULE PO (05:59)
[2022-04-02] MEDS: buPROPion (XL) 150 MG TABLET.XL PO (05:59)
[2022-04-02] MEDS: Magnesium Chloride 64 MG Delay Rel.Tablet 128 MG PO (06:00)
[2022-04-02] MEDS: hydroCHLOROthiazide 12.5mg 12.5 MG PO (06:00)
[2022-04-02] MEDS: amLODIPine 10 MG Tablet PO (06:00)
[2022-04-02] MEDS: Pantoprazole Sodium 20 MG Tablet PO (06:00)
[2022-04-02] MEDS: Petrolatum 33% Tube 1 APPLIC TOPICAL ×2 (06:04→17:39)
[2022-04-02 06:50] LABS: Bedside Glucose 133 mg/dL (74-106)
[2022-04-02] MEDS: metFORMIN HCl 1,000 MG Tablet 1000 MG PO ×2 (08:04→17:39)
[2022-04-02] MEDS: Calcium Carb/Vitamin D 1 TABLET Tablet PO (08:04)
[2022-04-02] MEDS: Acetaminophen 500 MG Tablet 1000 MG PO ×2 (09:54→20:04)
[2022-04-02 14:06] VITALS: BP 119/59; PULSE 70; RESP 18; TEMP 36.6; O2SAT 96
[2022-04-02] MEDS: Atorvastatin Calcium 40 MG Tablet PO (20:03)
[2022-04-02] MEDS: Tolterodine Tartrate 2 MG CAP.SA PO (20:03)
[2022-04-02 20:06] VITALS: PULSE 78; RESP 16; O2SAT 94
[2022-04-03] MEDS: buPROPion (XL) 150 MG TABLET.XL PO (05:20)
[2022-04-03] MEDS: LINAGLIPTIN 5 MG TABLET PO (05:20)
[2022-04-03] MEDS: hydroCHLOROthiazide 12.5mg 12.5 MG PO (05:21)
[2022-04-03] MEDS: Losartan Potassium 100 MG Tablet PO (05:21)
[2022-04-03] MEDS: amLODIPine 10 MG Tablet PO (05:21)
[2022-04-03] MEDS: Pantoprazole Sodium 20 MG Tablet PO (05:21)
[2022-04-03] MEDS: Magnesium Chloride 64 MG Delay Rel.Tablet 128 MG PO (05:21)
[2022-04-03] MEDS: Fluoxetine HCl 40 MG CAPSULE PO (05:21)
[2022-04-03] MEDS: Petrolatum 33% Tube 1 APPLIC TOPICAL ×2 (05:22→16:53)
[2022-04-03 05:24] VITALS: BP 120/64; PULSE 58
[2022-04-03 06:36] LABS: Bedside Glucose 129 mg/dL (74-106)
[2022-04-03] MEDS: metFORMIN HCl 1,000 MG Tablet 1000 MG PO ×2 (07:48→16:53)
[2022-04-03] MEDS: Calcium Carb/Vitamin D 1 TABLET Tablet PO (07:49)
--- NOTE | 2022-04-03 09:49 | NURSING ---
CALLED DR NAVARRETE'S OFFICE. APPT IS SCHEDULED 04/09 AT 1530. UPDATED R'. SHE WILL LET STAFF KNOW IF SHE CAN GET TRANSPORT ARRANGED.
--- NOTE | 2022-04-03 09:57 | CASEMGMT ---
Addendum entered by Chula Allen 04/03/22 10:34: Dtr provided preferences: [facility], Usha Montoya. Referral made via phone and [facility] to [facility]. Original Note: Social Work Spoke with pt to discuss DC plans. Pt is requesting to DC home tomorrow. IDT agreeable and recommending HHC PT. Pt agreeable and does not have preference for HHC. Pt states her DIL Maria Antonia can transport her. No DME needs. SW contacted dtr, Amara, as DIL phone number is not listed. Dtr confirms DC plans. SW offered to send skilled HHC list - dtr agreeable. Skilled HHC list of providers including quality and resource use data and consistent with the patient?s preferred geographic region, medical needs, and insurance network via [facility] Guide Link. BIMS () and PHQ-9 (09/10) completed for MDS assessment. Plan: DC home alone 04/04, HHC PT ANJELICA OrtizW
[2022-04-03 14:08] VITALS: BP 126/46; PULSE 72; RESP 14; TEMP 36.8; O2SAT 98
--- NOTE | 2022-04-03 20:16 | DS.PCM_ITS ---
Providers Date of Admission: 03/28/22 Primary Care Physician: Dr. Dhiraj Julian MD Reason For Visit: LAMINECTOMY LT L3-4 Diagnosis Discharge Diagnosis (1) Debility: Status: Acute Code(s): R53.81 - Other malaise (2) Lumbar back pain with radiculopathy affecting left lower extremity: Status: Acute Code(s): M54.16 - Radiculopathy, lumbar region (3) Diabetes mellitus: Status: Acute Code(s): E11.9 - Type 2 diabetes mellitus without complications (4) Hypertension: Status: Chronic Code(s): I10 - Essential (primary) hypertension (5) Hyperlipidemia: Status: Acute Code(s): E78.5 - Hyperlipidemia, unspecified (6) Diabetic polyneuropathy: Status: Acute Code(s): E11.42 - Type 2 diabetes mellitus with diabetic polyneuropathy (7) Overactive bladder: Status: Acute Code(s): N32.81 - Overactive bladder (8) Hypomagnesemia: Status: Acute Code(s): E83.42 - Hypomagnesemia (9) Depression: Status: Acute Code(s): F32.A - Depression, unspecified (10) Osteoarthritis: Status: Acute Code(s): M19.90 - Unspecified osteoarthritis, unspecified site Plan 82 year old female with below past medical history hospitalized for repeat laminectomy medial facetectomy L3-4 on left 03/26/[address] Fam, admitted to TCU with debility, here for rehabilitation, strengthening, prior to discharge home alone. * Debility - PT/OT. * Pain - Tylenol 1000mg q6h prn pain (1-10). * Bowel - Senna/colace 1 tablet bid, Dulcolax 10mg daily prn. * Adult immunization - Administer pneumonia vaccine, covid19 vaccine, flu vaccine as appropriate. * DVT prophylaxis - Hold. * Hypertension - Losartan 100mg daily, HCTZ 12.5mg daily, Amlodipine 10mg daily. * Hyperlipidemia - Atorvastatin 40mg qhs. * Depression - Bupropion XL 150mg daily, Fluoxetine 40mg daily, stable chronic snf use, GDR not recommended. * Calcium deficiency - Calcium/D 1 tablet daily. * Diabetic polyneuropathy - Gabapentin 300mg qhs prn. * Hemorrhoids - HC 2.5% topical bid thru 04/18/2022. * Diabetes Mellitus II - Metformin 1000mg bidcm, Tradjenta 5mg daily. * Hypomagnesemia - Magnesium chloride 128mg daily. * GERD - Pantoprazole 20mg daily. * Skin irritation - Eucerin topical bid. * Overactive bladder - Tolterodine 2mg qhs. Medications at Discharge Home Medications atorvastatin 40 mg tablet 40 mg PO QHS cholestrol 02/14/14 tolterodine 2 mg capsule,extended release 24 hr (Detrol LA) 2 mg PO QHS overactive bladder 02/14/14 sitagliptin 100 mg tablet (Januvia) 100 mg PO DAILY diabetes 04/06/18 magnesium 250 mg tablet 250 mg PO DAILY Supplement 11/14/20 valsartan 320 mg tablet 320 mg PO DAILY Cholesterol 04/10/21 amlodipine 10 mg tablet 10 mg PO DAILY bp 05/02/21 bupropion HCl 150 mg 24 hr tablet, extended release 150 mg PO DAILY mood 05/02/21 fluoxetine 40 mg capsule 40 mg PO DAILY depression 05/02/21 hydrochlorothiazide 12.5 mg capsule 12.5 mg PO DAILY bp/fluid 05/02/21 metformin 1,000 mg tablet 1,000 mg PO BID dm 05/02/21 calcium carbonate 600 mg-vitamin D3 5 mcg (200 unit) tablet 1 tab PO DAILY Supplement 03/21/22 omeprazole 20 mg capsule,delayed release 20 mg PO DAILY GERD 03/21/22 acetaminophen 500 mg tablet 1,000 mg PO Q6H PRN PRN Pain Score 1-10 #0 tabs 04/03/22 Hospital Course Operations - (Lumbar laminectomy.) Procedures None Summary of Care Provided Minutes Spent on Discharge: 35 Hospital Course: 82 year old female with below past medical history hospitalized for repeat laminectomy medial facetectomy L3-4 on left 03/26/[address] Fam, admitted to TCU with debility, here for rehabilitation, strengthening, prior to discharge home alone. Discharge home alone 04/04/2022, Home Health Care PT. Physical Exam Const alert General Appearance: cooperative HEENT normocephalic Eyes PERRL and EOMs intact bilaterally Neck supple, no JVD and no carotid bruits Resp normal respiratory effort, normal air movement and clear to auscultation bilaterally Cardio regular rate and regular rhythm GI normal to inspection, nondistended, normoactive bowel sounds, non-tender and non-distended Extremity normal capillary refill General Extremity: Negative for edema Skin no rashes or lesions noted General Skin Exam: no breakdown Psych affect normal Appearance: appropriate Weight / BMI Weight Weight: 59.874 kg Body Mass Index (BMI) 23.2 ABG / Lab / Microbiology Data Result Diagrams: 03/29/22 05:10 03/29/22 05:10 Laboratory: Laboratory Results - last 24 hr 04/03/22 06:12: POC Glucose 129 H Microbiology: Microbiology 03/28/22 15:28 Nasal Secretion SARS-CoV-2 Antigen (Rapid) - Final D/C Instructions Discharge Diet: No restrictions Discharge Activity: Return to Normal Activity, May Shower and Use Walker Weight Bearing Status: Weight bearing as tolerated Call your doctor if you observe: Fever of 101 or Higher, Inability to urinate, Inability to have a bowel movement, Shortness of breath, Dizziness, Fainting spells, Swelling in the ankles, Chest pain and Uncontrolled pain Additional Instructions: Discharge home alone 04/04/2022, Home Health Care PT. Please Follow Up With: DR FAM When: As scheduled. Meaningful Use Info Meaningful Use Diagnoses (Choose all that apply): None applicable Discharge Plan Admission Admit Date/Time: 03/28/22 14:15 Primary Reason for Your Visit: Debility. Attending Provider: Romulo Infante Chi Primary Care Provider: Dhiraj Julian Instructions Additional Instructions / Restrictions: Discharge home alone 04/04/2022, Home Health Care PT. Discharge Orders/Prescriptions Prescriptions: New acetaminophen 500 mg Tablet 1,000 mg PO Q6H PRN PRN (Reason: Pain Score 1-10) Qty: 0 0RF Continued valsartan 320 mg tablet 320 mg PO DAILY Label Comments: TAKE 1 TABLET BY MOUTH EVERY DAY tolterodine [Detrol LA] 2 MG capsule,extended release 24hr 2 mg PO QHS Label Comments: URINARY MEDICATION atorvastatin 40 MG tablet 40 mg PO QHS Label Comments: CHOLESTEROL Januvia 100 MG tablet 100 mg PO DAILY Label Comments: magnesium 250 mg Tablet 250 mg PO DAILY fluoxetine 40 mg capsule 40 mg PO DAILY amlodipine 10 mg tablet 10 mg PO DAILY metformin 1,000 mg tablet 1,000 mg PO BID hydrochlorothiazide 12.5 mg capsule 12.5 mg PO DAILY bupropion HCl 150 mg tablet extended release 24 hr 150 mg PO DAILY calcium carbonate-vitamin D3 600 mg-5 mcg (200 unit) Tablet 1 tab PO DAILY omeprazole 20 mg Capsule,Delayed Release(Dr/Ec) 20 mg PO DAILY Discontinued clobetasol 0.05 % solution 1 applic topical PRN PRN (Reason: Skin Cleansing) Label Comments: APPLY TO THE AREAS OF RASH ON THE SCALP 1X DAILY- BEST TO APPLY AFTER SHOWER WHEN HAIR IS DAMP meloxicam 15 mg tablet 15 mg PO DAILY nystatin 100,000 unit/gram powder 1 applic topical PRN PRN (Reason: Rash) Label Comments: APPLY TO AFFECTED AREA TWICE A DAY gabapentin 300 MG capsule 300 mg PO QHS PRN (Reason: NERVE PAIN) Label Comments: NEUROPATHY hydrocortisone 2.5 % cream 1 applic topical BID PRN (Reason: Rash) Rx Instructions: apply to the rectum twice daily x 21 days Referrals / Follow Up: Dhiraj Julian MD [Primary Care Provider] - Disposition Disposition (needs filled in before D/C Order can be placed): Home Health Service
[2022-04-03] MEDS: Atorvastatin Calcium 40 MG Tablet PO (20:44)
[2022-04-03] MEDS: Tolterodine Tartrate 2 MG CAP.SA PO ×2 (20:44)
[2022-04-04] MEDS: Magnesium Chloride 64 MG Delay Rel.Tablet 128 MG PO (05:31)
[2022-04-04] MEDS: Pantoprazole Sodium 20 MG Tablet PO (05:31)
[2022-04-04] MEDS: Losartan Potassium 100 MG Tablet PO (05:31)
[2022-04-04] MEDS: LINAGLIPTIN 5 MG TABLET PO (05:31)
[2022-04-04] MEDS: buPROPion (XL) 150 MG TABLET.XL PO (05:31)
[2022-04-04] MEDS: Fluoxetine HCl 40 MG CAPSULE PO (05:31)
[2022-04-04] MEDS: amLODIPine 10 MG Tablet PO (05:31)
[2022-04-04] MEDS: hydroCHLOROthiazide 12.5mg 12.5 MG PO (05:31)
[2022-04-04] MEDS: Petrolatum 33% Tube 1 APPLIC TOPICAL (05:32)
[2022-04-04 05:38] VITALS: BP 119/63; PULSE 68
[2022-04-04 06:40] LABS: Bedside Glucose 132 mg/dL (74-106)
[2022-04-04] MEDS: metFORMIN HCl 1,000 MG Tablet 1000 MG PO (08:00)
[2022-04-04] MEDS: Calcium Carb/Vitamin D 1 TABLET Tablet PO (08:00)
--- NOTE | 2022-04-04 11:11 | NURSING ---
duscharged home with family. discharge instructions, appointments, and medications reviewed with pt. denies questions or concerns
[2022-04-04 11:15] VITALS: BP 128/68; PULSE 70; RESP 16; TEMP 36.7; O2SAT 97
--- NOTE | 2022-04-04 12:01 | NURSING ---
Health Education Aide Note; MDS complete
--- NOTE | 2022-04-09 08:51 | MDS.RN ---
Information for the mds was obtained from review of the clinical record, interview of resident, staff, and direct observation of resident's care.
== END 2022-04-04 11:17 | disposition home health service (06) | DRG 561 ==
PROVIDERS: Admitting Provider Family Medicine Geriatric Medicine; PCP Family Medicine; Visit Provider Family Medicine Geriatric Medicine
DX: Z47.89 Encounter for other orthopedic aftercare (principal); E11.42 Type 2 diabetes mellitus with diabetic polyneuropathy; I10 Essential (primary) hypertension; E78.00 Pure hypercholesterolemia, unspecified; M19.90 Unspecified osteoarthritis, unspecified site; E83.42 Hypomagnesemia; K21.9 Gastro-esophageal reflux disease without esophagitis; K64.9 Unspecified hemorrhoids; F32.A Depression, unspecified; N32.81 Overactive bladder; Z79.84 Long term (current) use of oral hypoglycemic drugs; Z79.899 Other long term (current) drug therapy
CPT/HCPCS: 36415; 80048; 82962; 85025; 87811; 92523; 97110; 97116; 97162; 97166; 97530; 97535

== ENCOUNTER 2022-07-15 15:13 | Emergency (ER) | payer MEDICARE, OTHER, SELFPAY ==
[2022-07-15 15:15] VITALS: BP 180/71; PULSE 63; RESP 20; TEMP 36.9; O2SAT 99; BMI 23.5
[2022-07-15 15:27] VITALS: BP 180/71; PULSE 65; RESP 20; TEMP 36.9; O2SAT 98
--- NOTE | 2022-07-15 15:57 | EKG12_ITS ---
Test Reason : CHEST PAIN Blood Pressure : / mmHG Vent. Rate : 064 BPM Atrial Rate : 064 BPM P-R Int : 154 ms QRS Dur : 092 ms QT Int : 424 ms P-R-T Axes : 018 -28 050 degrees QTc Int : 437 ms Normal sinus rhythm Normal ECG Confirmed by BUD AREVALO, AROLDO ([id number]), scientific publications editor ANGELA DAVIDSON ([id number]) on 07/17/2022 1:15:43 PM Referred By: JIMENA Confirmed By:AROLDO FARRELL MD
--- NOTE | 2022-07-15 15:57 | RAD_ITS ---
INDICATION: chest pain EXAMINATION/TECHNIQUE: X-RAY - XR Chest 1 View COMPARISON: None. FINDINGS: The lungs are clear. Tortuous and calcified thoracic aorta. The heart is not enlarged. No pleural effusion or pneumothorax. Degenerative changes of the thoracic spine. RAD/Chest 1 View (Portable) IMPRESSION: No acute radiographic abnormalities. Electronically Signed: Sahil Cruz MD at 17:35 EST ,
--- NOTE | 2022-07-15 16:17 | EDS_ITS ---
HPI History of Present Illness Chief Complaint: Chest Pain Informant: patient Onset/Context/Timing Onset: Today and Hours (1) Activity at onset: sudden Timing: Continuous Quality: Positive for Aching and Dull Location: Substernal and - (Abdominal) Worsened By: Nothing Relieved By: Nothing Associated Symptoms: Positive for Nausea, Vomiting, Dyspnea and Lightheadedness; Negative for Diaphoresis, Cough, Fever, Acid Reflux or Palpitations Narrative Narrative: Patient presents with chest and abdominal pain that began today. Patient states it began rather suddenly. Patient states she was eating lunch when this began. Patient states it has been constant. Patient states it began approxi-1 hour prior to arrival. Patient describes it as dull and aching. Patient states it started in her lower chest and has spread to her entire abdomen. Patient states nothing makes it worse and nothing makes it better. Patient admits to some nausea and one episode of vomiting. Patient admits to some shortness of breath and lightheadedness. Patient denies any cough or fevers. Patient denies any diaphoresis or palpitations. CVD Risk Factors: Positive for Hypertension, Diabetes and Hypercholesterolemia; Negative for Family History 1' </=55 or Smoking PE Risk Factors: Positive for Cancer; Negative for Recent Travel/Surgery, Recent Immobilization or Prior DVT or PE [facility] Medical History Ambulates with cane Arthritis Back pain Cancer Cancer Carpal tunnel syndrome Depression Diabetes Dietary restriction Fecal incontinence Forgetfulness GI bleeding High cholesterol History of hiatal hernia History of pain when walking History of stress test Hx of cataract Hypertension Hypertension Injury of back Kidney stone on left side Liver lesion, right lobe Migraine headache Multiple lung nodules Nausea Non-smoker Normal stress echocardiogram Open wound Pancreatitis Pancreatitis Peripheral neuropathy Type II diabetes mellitus Wears glasses Home Medications atorvastatin 40 mg tablet 40 mg PO QHS cholestrol 02/14/14 [History Last Taken 10 Days Ago ~04/22/21] tolterodine 2 mg capsule,extended release 24 hr (Detrol LA) 2 mg PO QHS overactive bladder 02/14/14 [History Last Taken 05/01/21] sitagliptin phosphate 100 mg tablet (Januvia) 100 mg PO DAILY diabetes 04/06/18 [History Last Taken 04/29/21] magnesium 250 mg tablet 250 mg PO DAILY Supplement 11/14/20 [History Last Taken 04/25/21] valsartan 320 mg tablet 320 mg PO DAILY Cholesterol 04/10/21 [History Last Taken 07/05/21 06:30] amlodipine 10 mg tablet 10 mg PO DAILY bp 05/02/21 [History Last Taken 03/26/22 05:00] bupropion HCl 150 mg 24 hr tablet, extended release 150 mg PO DAILY mood 05/02/21 [History Last Taken 03/26/22 05:00] fluoxetine 40 mg capsule 40 mg PO DAILY depression 05/02/21 [History Last Taken 03/26/22 05:00] hydrochlorothiazide 12.5 mg capsule 12.5 mg PO DAILY bp/fluid 05/02/21 [History Last Taken 10 Days Ago ~04/22/21] metformin 1,000 mg tablet 1,000 mg PO BID dm 05/02/21 [History Last Taken 05/01/21] calcium carbonate 600 mg-vitamin D3 5 mcg (200 unit) tablet 1 tab PO DAILY Supplement 03/21/22 [History Last Taken Unknown] omeprazole 20 mg capsule,delayed release 20 mg PO DAILY GERD 03/21/22 [History Last Taken 03/26/22 05:00] acetaminophen 500 mg tablet 1,000 mg PO Q6H PRN PRN Pain Score 1-10 #0 tabs 04/03/22 [Rx Last Taken Unknown] Allergy/AdvReac Type Severity Reaction Status Date / Time codeine Allergy Anaphylaxis Verified 07/15/22 15:14 crab Allergy Swollen Verified 07/15/22 15:14 lymph glands hydrocodone bitartrate AdvReac Vomiting Verified 07/15/22 15:14 [From Vicodin] zolpidem tartrate AdvReac Other Verified 07/15/22 15:14 [From Ambien] Family History Grandfather Parkinson disease Other CVA (cerebral vascular accident) Surgical History H/O: hysterectomy History of 2 sections History of back surgery History of cholecystectomy Hx of cystoscopy Hx of detached retina repair Hx of total knee replacement Social History household members: none Smoking Status: Never smoker how long ago did patient quit smoking: stoped in 1969 used when she was in her teens alcohol intake: never substance use type: does not use ROS ROS ED Constitutional Constitutional ED: Reports chills and subjective; Denies fever(s) Eyes Eyes: Denies blurry vision or change in vision ENT ENT ED: Denies rhinorrhea or sore throat Cardiovascular Cardiovascular: Reports chest pain; Denies palpitations Respiratory/Chest Respiratory/Chest: Reports dyspnea; Denies cough Gastrointestinal Gastrointestinal: Reports abdominal pain, nausea and vomiting Genitourinary Genitourinary ED: Denies dysuria or hematuria Musculoskeletal Musculoskeletal: Denies back pain or neck pain Integumentary Denies abscess or rash Neurologic Neurologic: Reports headache(s); Denies weakness Allergic/Immunologic Allergic/Immunologic ED: Denies mouth swelling or urticaria EXAM Physical Exam Const Vital Signs: 07/15/22 15:15 07/15/22 15:15 07/15/22 15:27 Temperature 98.4 F 98.4 F Temperature Source Oral Oral Pulse Rate 63 65 Respiratory Rate 20 H 20 H Respiratory Effort Normal Non-Labored Respiratory Pattern Tachypnea Blood Pressure 180/71 H 180/71 H Blood Pressure Mean 107 107 Pulse Ox 99 98 Oxygen Delivery Method Room Air Room Air 07/15/22 16:45 07/15/22 19:05 Temperature Temperature Source Pulse Rate 67 Respiratory Rate 15 Respiratory Effort Respiratory Pattern Blood Pressure 150/68 H Blood Pressure Mean 95 Pulse Ox 99 96 Oxygen Delivery Method Room Air Room Air Positive well nourished and well developed General Appearance ED: well developed and NAD HEENT normocephalic and atraumatic Eyes PERRL and EOMs intact bilaterally Neck supple and no JVD Chest Wall palpation of chest normal Resp normal respiratory effort and clear to auscultation bilaterally Effort and Inspection: Negative for respiratory distress Cardio regular rate, regular rhythm and no murmurs GI normal to inspection, nondistended, normoactive bowel sounds, soft to palpation, non-tender and non-distended Extremity normal to inspection General Extremety ED: Negative for edema or tenderness General Extremity: Negative for edema Neuro oriented x3, CN's II-XII intact bilaterally and no sensory deficits noted Sensorium / Orientation: awake and alert Motor Exam: strength 5/5 throughout Psych mental status grossly normal Heart Score History: Slightly/Non-Suspicious ECG: Normal Age: >/= 65 years Risk Factors: >/= 3 Risk Factors or History of CAD Troponin: </= Normal Limit Score: 4 MDM MDM MDM Narrative Medical decision making narrative: Patient was given aspirin by EMS. EKG was obtained. On my interpretation, it showed a normal sinus rhythm with a rate of 64. OH interval, QRS interval, and QTc intervals were all normal. Hope was normal. There are no acute ST or T wave changes. Portable 1 view chest x-ray was obtained. On my interpretation, lung paiz are clear. There is normal cardiac silhouette. Bony thorax is normal. There is no acute process noted. Radiologist also interpreted the x- ray and agrees. CBC was within normal limits. Comprehensive metabolic profile was within normal limits. Lipase was slightly elevated at 597. Patient has had similar results in the past. High-sensitivity troponin was normal. 2-hour repeat high-sensitivity troponin was essentially unchanged. Urinalysis does not show any evidence of urinary tract infection or hematuria. Patient is feeling better on reevaluation. Patient wants to go home. Patient was instructed to drink plenty of fluids. Patient was instructed to follow-up with her primary care physician in 5 to 7 days. Patient understood and was agreeable with the plan. All questions were answered. Lab Data Attestation: I reviewed the patient's lab results. Labs: Laboratory Results - last 24 hr 07/15/22 07/15/22 07/15/22 15:03 15:03 16:58 WBC 9.2 RBC 4.99 Hgb 13.4 Hct 41.9 MCV 84.0 MCH 26.9 L MCHC 32.0 RDW Std Deviation 44.1 H RDW Coeff of Finesse 14.5 Plt Count 187 MPV 12.6 H Immature Gran % (Auto) 0.300 Neut % (Auto) 49.9 Lymph % (Auto) 38.9 [place] % (Auto) 9.3 Eos % (Auto) 1.5 Baso % (Auto) 0.1 Absolute Neuts (auto) 4.6 Absolute Lymphs (auto) 3.58 Nucleated RBC % 0 Sodium 140 Potassium 4.6 Chloride 104 Carbon Dioxide 31.0 Anion Gap 5 BUN 23 H Creatinine 0.96 Estim Creat Clear Calc 38.02 Est GFR (MDRD) Af Amer 72 Est GFR (MDRD) Non-Af 59 L BUN/Creatinine Ratio 24.0 H Glucose 83 Calcium 9.5 Total Bilirubin 1.10 H AST 63 H ALT 49 Alkaline Phosphatase 75 Troponin I High Sens 9 Total Protein 7.4 Albumin 3.9 Globulin 3.5 Albumin/Globulin Ratio 1.1 Lipase 597 H Urine Color Straw Urine Clarity Clear Urine pH 8.0 Ur Specific [place] 1.010 Urine Protein Negative Urine Glucose (UA) 50 H Urine Ketones Negative Urine Occult Blood Negative Urine Nitrite Negative Urine Bilirubin Negative Urine Urobilinogen Normal Ur Leukocyte Esterase Negative Urine RBC 0 SEEN Urine WBC 0 SEEN Ur Squamous Epith Cells 0-5 SEEN Urine Bacteria 0 SEEN Urine Mucus 0 SEEN 07/15/22 18:13 WBC RBC Hgb Hct MCV MCH MCHC RDW Std Deviation RDW Coeff of [place]ines[place] Plt Count MPV Immature Gran % (Auto) Neut % (Auto) Lymph % (Auto) [place] % (Auto) Eos % (Auto) Baso % (Auto) Absolute Neuts (auto) Absolute Lymphs (auto) Nucleated RBC % Sodium Potassium Chloride Carbon Dioxide Anion Gap BUN Creatinine Estim Creat Clear Calc Est GFR (MDRD) Af Amer Est GFR (MDRD) Non-Af BUN/Creatinine Ratio Glucose Calcium Total Bilirubin AST ALT Alkaline Phosphatase Troponin I High Sens 10 Total Protein Albumin Globulin Albumin/Globulin Ratio Lipase Urine Color Urine Clarity Urine pH Ur Specific [place] Urine Protein Urine Glucose (UA) Urine Ketones Urine Occult Blood Urine Nitrite Urine Bilirubin Urine Urobilinogen Ur Leukocyte Esterase Urine RBC Urine WBC Ur Squamous Epith Cells Urine Bacteria Urine Mucus Radiography Chest X-Ray - ED: 1 View, Read by ED Physician, Read by Radiologist and No Acute Disease Diagnostic Testing: Clinical Impression(s) from Imaging Studies Chest X-Ray 07/15/22 15:57 IMPRESSION: No acute radiographic abnormalities. Electronically Signed: Sahil Cruz MD at 17:35 EST , EKG Initial EKG: Attestation: I personally reviewed and interpreted this EKG as follows: Interpretation: Sinus Rhythm (64) and No Acute Injury Pattern Prior EKG tracings: available for review Prior: Unchanged (01/26/2022) Discharge Plan Triage Chief Complaint: Chest Pain ED Provider: Perico Bar Dx/Rx/DC Orders Clinical Impression: Abdominal pain, Chest pain Instructions: ED Abdominal Pain Unkn Cause Fem, ED Chest Pain, Uncertain Cause Prescriptions: No Action valsartan 320 mg tablet 320 mg PO DAILY Label Comments: TAKE 1 TABLET BY MOUTH EVERY DAY tolterodine [Detrol LA] 2 MG capsule,extended release 24hr 2 mg PO QHS Label Comments: URINARY MEDICATION atorvastatin 40 MG tablet 40 mg PO QHS Label Comments: CHOLESTEROL Januvia 100 MG tablet 100 mg PO DAILY Label Comments: magnesium 250 mg Tablet 250 mg PO DAILY fluoxetine 40 mg capsule 40 mg PO DAILY amlodipine 10 mg tablet 10 mg PO DAILY metformin 1,000 mg tablet 1,000 mg PO BID hydrochlorothiazide 12.5 mg capsule 12.5 mg PO DAILY bupropion HCl 150 mg tablet extended release 24 hr 150 mg PO DAILY calcium carbonate-vitamin D3 600 mg-5 mcg (200 unit) Tablet 1 tab PO DAILY omeprazole 20 mg Capsule,Delayed Release(Dr/Ec) 20 mg PO DAILY acetaminophen 500 mg Tablet 1,000 mg PO Q6H PRN PRN (Reason: Pain Score 1-10) Qty: 0 0RF Hold Instructions: Order Changed Primary Care Provider: Dhiraj Julian Referrals: Dhiraj Julian MD [Primary Care Provider] - 3-5 Days Disposition Disposition: Home, Self Care
[2022-07-15 16:28] LABS: Absolute Lymphocyte Count 3.58 X10^3/uL (0.83-4.51); Absolute Neutrophil Count 4.6 X10^3/uL (2.0-7.7); Basophil# 0.01 X10^3/uL; Basophil% 0.1 % (0-1); Eosinophil# 0.14 X10^3/uL; Eosinophils% 1.5 % (0-5); Hematocrit 41.9 % (37-47); Hemoglobin 13.4 g/dL (12.0-15.0); Lymphocyte # 3.58 X10^3/ul (0.83-4.51); Lymphocyte % 38.9 % (19-41); Mean Corpuscular Hgb 26.9 pg (27.0-32.0); Mean Platelet Vol. 12.6 fl (6.2-12.0); Monocyte# 0.86 X10^3/uL; Monocyte% 9.3 % (0-10); NRBC Flagged by Analyzer 0 % (0-5); Neutrophil # 4.59 X10^3/uL (2.7-7.7); Neutrophil % 49.9 % (47-70); Platelet Count 187 K/mm3 (150-450); RBC Distribution Width CV 14.5 % (11.6-14.6); RBC Distribution Width SD 44.1 fl (35.1-43.9); Red Blood Count 4.99 M/mm3 (4.2-5.4); White Blood Count 9.2 K/mm3 (4.4-11.0)
[2022-07-15 16:45] VITALS: O2SAT 99
[2022-07-15 16:55] LABS: ALB/GLOB Ratio 1.1 RATIO (0.9-2.4); AST(SGOT) 63 U/L (15-37); Alanine Aminotransfer ALT/SGPT 49 U/L (13-56); Albumin, Serum 3.9 g/dL (3.2-5.0); Alkaline Phosphatase 75 U/L (45-117); Anion Gap 5 (5-15); BUN 23 mg/dL (7-18); Calcium,Total 9.5 mg/dL (8.5-10.1); Chloride 104 mmol/L (98-107); Creatinine, Serum 0.96 mg/dL (0.55-1.02); EST Glomerular Filtration Rate 59 mL/min (>60); Est Glom Filt Rate - Afr Amer 72 mL/min (>60); Estimated Creatinine Clearance 38.02 ml/min; Globulin 3.5 g/dL (2.2-4.2); Glucose 83 mg/dL (74-106); Lipase 597 U/L (73-393); Potassium 4.6 mmol/L (3.5-5.1); Protein, Total 7.4 g/dL (6.4-8.2); Sodium Level 140 mmol/L (136-145); Troponin-I HS (w/2H Reflex) 9 pg/mL (3.0-54.0)
[2022-07-15 17:03] LABS: Bacteria 0 SEEN /hpf (None Seen); Mucous, Urine 0 SEEN /hpf (<or=2+); Red Blood Cells-Urine 0 SEEN /hpf (0-5); White Blood Cells 0 SEEN /hpf (0-5)
[2022-07-15 17:06] LABS: Color, Urine Straw (Yellow); Glucose, Dipstick 50 mg/dl (Normal); Ketone-Dipstick Negative (Negative); Leukocyte Esterase-Dipstick Negative /ul (Negative); Nitrite-Dipstick Negative (Negative); Occult Blood-Urine Negative /ul (Negative); Protein-Dipstick Negative (Negative); Urine Bilirubin Dipstick Negative (Negative); Urine Clarity Clear (Clear); Urine Urobilinogen Normal (Normal)
[2022-07-15 17:34] LABS: Squamous Epithelial Cells - UA 0-5 SEEN /hpf (5-10)
[2022-07-15 18:21] LABS: Reflex Troponin-HS? (from REC) Y
[2022-07-15 19:05] VITALS: BP 150/68; PULSE 67; RESP 15; O2SAT 96
[2022-07-15 19:20] LABS: Troponin-I HS 10 pg/mL (3.0-54.0)
[2022-07-15 19:46] VITALS: BP 140/60; PULSE 78; RESP 16
== END 2022-07-15 19:47 | disposition home or self-care (01) ==
PROVIDERS: Emergency Provider Emergency Medicine; PCP Family Medicine; Visit Provider Emergency Medicine
DX: R10.9 Unspecified abdominal pain (principal); E11.42 Type 2 diabetes mellitus with diabetic polyneuropathy; R07.9 Chest pain, unspecified; I10 Essential (primary) hypertension; E78.00 Pure hypercholesterolemia, unspecified; Z79.899 Other long term (current) drug therapy; Z79.84 Long term (current) use of oral hypoglycemic drugs
CPT/HCPCS: 71045; 80053; 81001; 83690; 84484; 85025; 93005; 99285; A4216

== ENCOUNTER 2023-02-17 20:47 | Emergency (ER) | payer MEDICARE, OTHER, SELFPAY ==
[2023-02-17 20:49] VITALS: BP 141/107; PULSE 68; RESP 16; TEMP 36.6; O2SAT 100; BMI 24.3
--- NOTE | 2023-02-17 21:03 | EKG12_ITS ---
Test Reason : ABDOMINAL PAIN Blood Pressure : / mmHG Vent. Rate : 066 BPM Atrial Rate : 066 BPM P-R Int : 172 ms QRS Dur : 088 ms QT Int : 430 ms P-R-T Axes : 038 -28 062 degrees QTc Int : 450 ms Sinus rhythm with occasional Premature ventricular complexes Otherwise normal ECG Confirmed by HEMALATHA AREVALO, ELADIO ([id number]), online editor ANGELA DAVIDSON ([id number]) on 02/18/2023 1:34:14 PM Referred By: Confirmed By:ELADIO PENNY MD
--- NOTE | 2023-02-17 21:03 | CT_ITS ---
We are attempting to reach an attending provider to discuss findings. An addendum with communication details will be sent when the communication is complete. EXAM: CT ABDOMEN AND PELVIS WITH INTRAVENOUS CONTRAST CLINICAL INDICATION: upper abdominal pain TECHNIQUE: Helically acquired images were obtained of the abdomen and pelvis with intravenous contrast. This CT exam was performed using one or more of the following dose reduction techniques: automated exposure control, adjustment of the mA and/or kV according to patient size, and/or use of iterative reconstruction technique. CONTRAST: 75 cc of Isovue-300 IV. RADIATION DOSE: CTDIvol = 11.62 mGy, DLP = 477.94 mGy-cm COMPARISON: Noncontrast CT scan of the abdomen and pelvis 01/26/2022. FINDINGS: LOWER THORAX: Partially visualized low-density mass measuring 2.6 cm in the right atrium near the interatrial septum. Calcified granuloma right lung base. Coronary artery calcifications. No cardiomegaly. No significant pericardial effusion. ABDOMEN: LIVER: Focal linear subcapsular area of low density posteriorly in the right lobe of the liver unchanged since previous exam. GALLBLADDER AND BILE DUCTS: Cholecystectomy. No intra- or extrahepatic biliary ductal dilation. PANCREAS: Unremarkable. No focal cystic or solid mass. SPLEEN: Unremarkable. Normal size without focal cystic or solid mass. ADRENALS: Unremarkable. No nodules. KIDNEYS AND URETERS: Unremarkable. Normal renal size and position. No hydronephrosis. STOMACH AND BOWEL: Unremarkable. No stomach or bowel distention. No focal inflammatory change. PELVIS: APPENDIX: Normal appendix. BLADDER: Unremarkable. REPRODUCTIVE: Hysterectomy. ABDOMEN and PELVIS: INTRAPERITONEAL SPACE: Unremarkable. No ascites or other fluid collection. No free air. BONES/JOINTS: Unremarkable. No suspicious lytic or blastic abnormality. SOFT TISSUES: Unremarkable. No discrete abdominal or pelvic wall hernia. VASCULATURE: See above. LYMPH NODES: Numerous borderline enlarged jejunal mesenteric lymph nodes similar to the prior exam. CT/Abdomen/Pelvis W IV Cont ONLY IMPRESSION: 1. Partially visualized low-density mass measuring 2.6 cm in the right atrium near the interatrial septum. Consider CTA chest with contrast or cardiac echo for further evaluation. 2. Numerous borderline enlarged jejunal mesenteric lymph nodes similar to the prior exam. 3. Coronary artery disease. 4. Focal linear subcapsular area of low density posteriorly in the right lobe of the liver unchanged since previous exam. 5. Hysterectomy. 6. No acute abdominal pelvic abnormality. 7. Cholecystectomy. Electronically Signed: Matt Barraza MD at 22:33 EDT ,
--- NOTE | 2023-02-17 21:07 | EX.ED.DYSGE1 ---
HPI <Dr. Fawad De Leon DO - Last Filed: 02/18/23 00:30> History of Present Illness Chief Complaint: Abd Pain <BRIAN Rosas - Last Filed: 02/17/23 21:56> Narrative Narrative: 82-year-old female with PMH of HTN, HLD, DM2, esophageal spasms, kidney stones, bladder cancer s/p treatment, cholecystectomy, hysterectomy presents with sudden onset epigastric pain that started about 30 minutes ago while she was sitting on the couch. She states it felt like something struck her in the epigastrium and it started radiating around both sides to the back. She started to become very worried about this and was breathing heavily. When her daughter arrived shortly after she states the patient was hyperventilating and does become anxious when these type of things happen. After arriving here she states the pain has lessened to about 7/10. She has no nausea or vomiting. She has had diarrhea today which is different than her normal 1-2 daily BMs. No melena or hematochezia. No fever chills or chest pain or shortness of breath. She states she just had a cystoscopy a week ago and it was normal. She also saw cardiology for murmur and had a normal echo and EKG. PFSH <Dr. Fawad De Leon DO - Last Filed: 02/18/23 00:30> [facility] Medical History Ambulates with cane Arthritis Back pain Cancer Carpal tunnel syndrome Depression Diabetes Dietary restriction Essential hypertension Fecal incontinence Forgetfulness GI bleeding High cholesterol History of hiatal hernia History of pain when walking History of stress test Hx of cataract Hypertension Injury of back Kidney stone on left side Liver lesion, right lobe Migraine headache Multiple lung nodules Nausea Normal stress echocardiogram Open wound Pancreatitis Peripheral neuropathy Type II diabetes mellitus Wears glasses Home Medications atorvastatin 40 mg tablet 40 mg PO QHS cholestrol 02/14/14 [History Last Taken 10 Days Ago ~04/22/21] tolterodine 2 mg capsule,extended release 24 hr (Detrol LA) 2 mg PO QHS overactive bladder 02/14/14 [History Last Taken 05/01/21] magnesium 250 mg tablet 250 mg PO DAILY Supplement 11/14/20 [History Last Taken 04/25/21] valsartan 320 mg tablet 320 mg PO DAILY Cholesterol 04/10/21 [History Last Taken 07/05/21 06:30] amlodipine 10 mg tablet 10 mg PO DAILY bp 05/02/21 [History Last Taken 03/26/22 05:00] bupropion HCl 150 mg 24 hr tablet, extended release 150 mg PO DAILY mood 05/02/21 [History Last Taken 03/26/22 05:00] fluoxetine 40 mg capsule 40 mg PO DAILY depression 05/02/21 [History Last Taken 03/26/22 05:00] hydrochlorothiazide 12.5 mg capsule 12.5 mg PO DAILY bp/fluid 05/02/21 [History Last Taken 10 Days Ago ~04/22/21] metformin 1,000 mg tablet 1,000 mg PO BID dm 05/02/21 [History Last Taken 05/01/21] calcium carbonate 600 mg-vitamin D3 5 mcg (200 unit) tablet 1 tab PO DAILY Supplement 03/21/22 [History Last Taken Unknown] acetaminophen 500 mg tablet 1,000 mg (2 x 500 mg) PO Q6H PRN PRN Pain Score 1-10 #0 tabs 04/03/22 [Rx Last Taken Unknown] Lactobacillus acidophilus 20 billion cell capsule (Florajen Acidophilus) 20,000 mmu cells PO DAILY 01/25/23 [History Last Taken Unknown] clobetasol 0.05 % topical ointment 1 applic topical BID PRN 01/25/23 [History Last Taken Unknown] gabapentin 300 mg capsule 600 mg PO QHS 01/25/23 [History Last Taken Unknown] glimepiride 1 mg tablet 1 mg PO QAM 01/25/23 [History Last Taken Unknown] hyoscyamine sulfate 0.125 mg sublingual tablet 0.125 mg sublingual Q4H PRN 01/25/23 [History Last Taken Unknown] linagliptin 5 mg tablet 5 mg PO DAILY 01/25/23 [History Last Taken Unknown] meclizine 12.5 mg tablet 12.5 mg PO Q6H PRN 01/25/23 [History Last Taken Unknown] meloxicam 15 mg tablet 15 mg PO DAILY 01/25/23 [History Last Taken Unknown] oxycodone-acetaminophen 2.5 mg-325 mg tablet 1 tab PO Q6H PRN 01/25/23 [History Last Taken Unknown] albuterol sulfate 90 mcg/actuation aerosol inhaler 2 puff inhalation Q6H PRN 02/13/23 [History Last Taken Unknown] nystatin 100,000 unit/gram topical powder 1 applic topical BID PRN 02/13/23 [History Last Taken Unknown] ondansetron 4 mg disintegrating tablet 4 mg PO Q6H PRN 02/13/23 [History Last Taken Unknown] Allergy/AdvReac Type Severity Reaction Status Date / Time acetaminophen [From Vicodin] Allergy Severe Anaphylaxis Verified 02/17/23 20:49 duloxetine Allergy Severe Hallucinati Verified 02/17/23 20:49 ons hydrocodone [From Vicodin] Allergy Severe Anaphylaxis Verified 02/17/23 20:49 levofloxacin [From Levaquin] Allergy Unknown Hallucinations, Verified 02/17/23 20:49 joint pain oxaprozin Allergy Unknown Unknown Verified 02/17/23 20:49 prednisone Allergy Unknown Unknown Verified 02/17/23 20:49 codeine Allergy Anaphylaxis Verified 02/17/23 20:49 crab Allergy Swollen Verified 02/17/23 20:49 lymph glands hydrocodone bitartrate AdvReac Vomiting Verified 02/17/23 20:49 [From Vicodin] zolpidem tartrate AdvReac Other Verified 02/17/23 20:49 [From Ambien] Family History Grandmother Parkinson disease Father Hypertension CVA (cerebral vascular accident) Diabetes Myocardial infarction Brother Sarcoid Surgical History H/O: hysterectomy History of 2 sections History of back surgery History of cataract extraction History of cholecystectomy Hx of cystoscopy Hx of detached retina repair Hx of total knee replacement S/P laminectomy Social History household members: none Smoking Status: Former smoker quit date: 01/30/71 how long ago did patient quit smokin alcohol intake: never substance use type: does not use caffeine: No ROS <BRIAN Rosas - Last Filed: 02/17/23 21:56> ROS ED ROS Narrative Constitutional: Negative for fever, chills, malaise. CVS: Negative for palpitations, chest pain, syncope. Respiratory: Negative for shortness of breath, cough, orthopnea. GI: Positive for abdominal pain, nausea, vomiting, diarrhea, constipation, melena, hematochezia. : Negative for dysuria, hematuria or frequency. Neuro: Negative for headache, motor/sensory dysfunction. Skin: Negative for rash, abscess, or wound. Musc: Negative for joint pain, swelling, trauma. Heme: Negative for easy bruising, bleeding, lymphadenopathy. EXAM <Dr. Fawad De Leon DO - Last Filed: 02/18/23 00:30> Physical Exam Const Vital Signs: 02/17/23 20:49 Temperature 97.9 F Temperature Source Oral Pulse Rate 68 Respiratory Rate 16 Blood Pressure 141/107 H Blood Pressure Mean 118 Pulse Ox 100 <BRIAN Rosas - Last Filed: 02/17/23 21:56> Physical Exam Narrative Exam Narrative: CONST: Patient sitting in no acute distress. EYES: Normal inspection. NECK: Normal inspection. RESP: No respiratory distress, CTAB. CVS: Regular rate and rhythm, no murmur, no gallop. ABD: Soft with mild midline epigastric tenderness, no guarding or rebound, nondistended, no hepatosplenomegaly. Back: Normal inspection. SKIN: Color normal, no rash, warm, dry, intact. EXTREMITIES: Normal appearance, no pedal edema. 2+ radial and DP pulses. NEURO: Oriented x4. PSYCH: Normal affect. Const Vital Signs: 02/17/23 20:49 Temperature 97.9 F Temperature Source Oral Pulse Rate 68 Respiratory Rate 16 Blood Pressure 141/107 H Blood Pressure Mean 118 Pulse Ox 100 [facility] <Dr. Fawad De Leon DO - Last Filed: 02/18/23 00:30> [facility] Lab Data Lab results narrative: CBC without evidence of systemic inflammation, anemia, no thrombocytopenia BMP without significant [place] abnormalities, no significant acute kidney injury, no anion gap LFTs show no evidence of hepatobiliary pathology. Lipase is wnl indicating no pancreatic inflammation. Urinalysis shows no evidence of urinary inflammation suggestive of UTI Lactate initially elevated consistent with endorgan hypoperfusion and dehydration, repeat lactate downtrending consistent with improved circulation and adequate resuscitation. Labs: Laboratory Results - last 24 hr 02/17/23 02/17/23 02/17/23 21:14 21:28 23:21 WBC 10.9 RBC 4.75 Hgb 11.6 L Hct 37.8 MCV 79.6 L MCH 24.4 L MCHC 30.7 L RDW Std Deviation 42.2 RDW Coeff of Fniesse 14.8 H Plt Count 197 MPV 11.1 Immature Gran % (Auto) 0.400 Neut % (Auto) 45.0 L Lymph % (Auto) 43.4 H [place] % (Auto) 9.2 Eos % (Auto) 1.7 Baso % (Auto) 0.3 Absolute Neuts (auto) 4.9 Absolute Lymphs (auto) 4.72 H Nucleated RBC % 0 Sodium 141 Potassium 4.2 Chloride 109 H Carbon Dioxide 23.0 Anion Gap 9 BUN 30 H Creatinine 1.10 H Estim Creat Clear Calc 33.18 Est GFR (MDRD) Af Amer 61 Est GFR (MDRD) Non-Af 51 L BUN/Creatinine Ratio 27.3 H Glucose 65 L Lactic Acid 3.0 H* 2.3 H* Calcium 9.3 Total Bilirubin 0.70 AST 73 H ALT 51 Alkaline Phosphatase 98 Troponin I High Sens 8 Total Protein 6.8 Albumin 3.4 Globulin 3.4 Albumin/Globulin Ratio 1.0 Lipase 52 Urine Color Yellow Urine Clarity Clear Urine pH 7.0 Ur Specific [place] 1.010 Urine Protein Negative Urine Glucose (UA) Normal Urine Ketones Negative Urine Occult Blood Negative Urine Nitrite Negative Urine Bilirubin Negative Urine Urobilinogen Normal Ur Leukocyte Esterase Negative Urine RBC 0 SEEN Urine WBC 0-5 SEEN Ur Squamous Epith Cells 0-5 SEEN Urine Bacteria 0 SEEN Urine Mucus 0 SEEN Radiography Diagnostic Testing: Clinical Impression(s) from Imaging Studies Abdomen/Pelvis CT 02/17/23 21:03 IMPRESSION: 1. Partially visualized low-density mass measuring 2.6 cm in the right atrium near the interatrial septum. Consider CTA chest with contrast or cardiac echo for further evaluation. 2. Numerous borderline enlarged jejunal mesenteric lymph nodes similar to the prior exam. 3. Coronary artery disease. 4. Focal linear subcapsular area of low density posteriorly in the right lobe of the liver unchanged since previous exam. 5. Hysterectomy. 6. No acute abdominal pelvic abnormality. 7. Cholecystectomy. Electronically Signed: Matt Barraza MD at 22:33 EDT , ADDENDUM: 02/17/23 2242 IMPRESSION: 1. Partially visualized low-density mass measuring 2.6 cm in the right atrium near the interatrial septum. Consider CTA chest with contrast or cardiac echo for further evaluation. 2. Numerous borderline enlarged jejunal mesenteric lymph nodes similar to the prior exam. 3. Coronary artery disease. 4. Focal linear subcapsular area of low density posteriorly in the right lobe of the liver unchanged since previous exam. 5. Hysterectomy. 6. No acute abdominal pelvic abnormality. 7. Cholecystectomy. N.B. : The above Results were Read Back by Matt Barraza MD to Fawad De Leon MD, and understanding confirmed on 02/17/2023 22:35:37 (ET). Electronically Signed: Matt Barraza MD at 22:33 EDT , Treatment and Re-Evaluation :: ED attending note: I evaluated the patient in conjunction with the SHERYL. I agree with his/her statements and above findings. I have personally performed a face to face assessment of the patient and have reviewed the SHERLY Note. I performed a substantive portion of the visit including all aspects of the following. I personally saw the patient performed chart review, physical exam, reviewed labs, imaging (if obtained), and formulated a treatment and management plan. Brief history: 82-year-old female here with epigastric abdominal pain, diarrhea. She states she is history of esophageal spasm and this feels similar. States pain was extremely severe located epigastrium radiated to her back. Denies any syncope or loss of consciousness. Denies any focal weakness. Exam: Nursing triage notes reviewed, Vital signs reviewed Constitutional: please see mdm HENT: MMM Eyes: Pupils equal round and reactive to light, Extraocular muscles intact Neck: No stridor, no JVD, full neck ROM Lungs: Clear to auscultation, No wheezing or rales. No increased work of breathing, no conversational dyspnea, no accessory muscle use, no nasal flaring. No respiratory distress noted Heart: Regular rate and rhythm, No murmurs, No rubs and No gallops, 2+ distal pulses (radial, femoral, posterior tibial) in all extremities Abdomen: Soft, there is no tenderness, rigidity, rebound or guarding, no obvious peritoneal signs, no palpable pulsatile abdominal masses, no auscultated abdominal bruit : No CVAT Extremities: No edema Neuro: No focal neurological deficits, cranial nerves II through XII intact, 5/5 strength in all extremities. Intact sensation to light touch in all extremities, 2+ reflexes bilateral patella dens. Normal gait. No ataxia. Skin: No rash or lesions noted MDM/plan: Chief Complaint: Abdominal pain, diarrhea External records reviewed: CT scan from 2021 shows IMPRESSION: Large amount of fecal material is seen in the colon. The previously seen mass in the bladder is not seen at this time. Factors affecting care: Bladder cancer, type 2 diabetes, hyperlipidemia Social determinants of health: Elderly, dementia History obtained from others: Patient's daughter MDM narrative: The patient was hemodynamically stable, afebrile, nontoxic-appearing. Exam was mostly unremarkable. No obvious peritoneal signs I considered the following differential diagnosis: Perforation, obstruction, myocardial ischemia, arrhythmia, pancreatitis, hepatobiliary production, mesenteric BMP to rule out electrolyte abnormalities CT scan rule out perforation or obstruction or evidence of mesenteric ischemia. We obtained a broad lab and imaging work-up to further elucidate etiology the patient complaints. Specifically obtain lactate to rule out signs of end-organ hypoperfusion. Lactate was initially elevated. CT scan of the abdomen pelvis showed no evidence of acute intra-abdominal cause including mesenteric ischemia. CT scan of the abdomen pelvis did not show evidence of an atrial mass. POCUS ultrasound was performed by myself and revealed no evidence of obvious intra atrial mass. Likely imaging artifact. Given the patient's initial elevated lactate was given 1 L fluid lactate was repeated. Repeat lactate was downtrending and essentially normal. Patient remained asymptomatic. I discussed further fluid resuscitation with patient and daughter. Offered further evaluation. Pt and daughter stated they would prefer to go home. Repeat abdominal exam showed no symptoms no pain no distention no peritoneal signs. Suspect the patient's lactate elevation was secondary to dehydration from diarrhea. Encourage oral intake of Pedialyte or body armor or Gatorade. Strict return precaution were discussed. All questions were answered. Shared decision making: I will have a discussion with the patient and or visitors regarding risk/benefits of further testing or admission. They will be made aware of of the risk/benefits inherent in this decision they will be given the opportunity to voice understanding. Consults: None Impression: Diarrhea, dehydration, esophageal spasm Disposition: Discharge <BRIAN Rosas - Last Filed: 02/17/23 21:56> [facility] Narrative Medical decision making narrative: History gathered from: Patient and daughter Patient has had diarrhea today and developed epigastric pain. She appears well and nontoxic and is afebrile with normal vital signs. Her cardiopulmonary exam is unremarkable. She has focal epigastric tenderness with no guarding or rebound. She has no right upper quadrant tenderness and has had a cholecystectomy. There is no evidence of pulsatile mass and upper and lower extremity pulses are symmetric. Broad work-up including cardiac and abdominal labs were ordered due to her age. Cardiac work-up was negative with nonischemic EKG and troponin of 8. CBC shows normal white count of 10.9. Hemoglobin is 11.6. This is slightly lower than previous but she has been in the range of 10 or 11 previously. Electrolytes are normal. Creatinine 1.1. ALT is 73 but she has normal AST, bilirubin, alk phos and lipase. Urinalysis is negative for infection. CT of the abdomen/pelvis is pending and disposition signed over to my attending. Differential: Esophageal spasm, ACS, pancreatitis, kidney stone, gastritis, GERD, among others Lab Data Attestation: I reviewed the patient's lab results. Labs: Laboratory Results - last 24 hr 02/17/23 02/17/23 02/17/23 21:14 21:28 23:21 WBC 10.9 RBC 4.75 Hgb 11.6 L Hct 37.8 MCV 79.6 L MCH 24.4 L MCHC 30.7 L RDW Std Deviation 42.2 RDW Coeff of Finesse 14.8 H Plt Count 197 MPV 11.1 Immature Gran % (Auto) 0.400 Neut % (Auto) 45.0 L Lymph % (Auto) 43.4 H [place] % (Auto) 9.2 Eos % (Auto) 1.7 Baso % (Auto) 0.3 Absolute Neuts (auto) 4.9 Absolute Lymphs (auto) 4.72 H Nucleated RBC % 0 Sodium 141 Potassium 4.2 Chloride 109 H Carbon Dioxide 23.0 Anion Gap 9 BUN 30 H Creatinine 1.10 H Estim Creat Clear Calc 33.18 Est GFR (MDRD) Af Amer 61 Est GFR (MDRD) Non-Af 51 L BUN/Creatinine Ratio 27.3 H Glucose 65 L Lactic Acid 3.0 H* 2.3 H* Calcium 9.3 Total Bilirubin 0.70 AST 73 H ALT 51 Alkaline Phosphatase 98 Troponin I High Sens 8 Total Protein 6.8 Albumin 3.4 Globulin 3.4 Albumin/Globulin Ratio 1.0 Lipase 52 Urine Color Yellow Urine Clarity Clear Urine pH 7.0 Ur Specific [place] 1.010 Urine Protein Negative Urine Glucose (UA) Normal Urine Ketones Negative Urine Occult Blood Negative Urine Nitrite Negative Urine Bilirubin Negative Urine Urobilinogen Normal Ur Leukocyte Esterase Negative Urine RBC 0 SEEN Urine WBC 0-5 SEEN Ur Squamous Epith Cells 0-5 SEEN Urine Bacteria 0 SEEN Urine Mucus 0 SEEN Radiography Diagnostic Testing: Clinical Impression(s) from Imaging Studies Abdomen/Pelvis CT 02/17/23 21:03 IMPRESSION: 1. Partially visualized low-density mass measuring 2.6 cm in the right atrium near the interatrial septum. Consider CTA chest with contrast or cardiac echo for further evaluation. 2. Numerous borderline enlarged jejunal mesenteric lymph nodes similar to the prior exam. 3. Coronary artery disease. 4. Focal linear subcapsular area of low density posteriorly in the right lobe of the liver unchanged since previous exam. 5. Hysterectomy. 6. No acute abdominal pelvic abnormality. 7. Cholecystectomy. Electronically Signed: Matt Barraza MD at 22:33 EDT , ADDENDUM: 02/17/23 2242 IMPRESSION: 1. Partially visualized low-density mass measuring 2.6 cm in the right atrium near the interatrial septum. Consider CTA chest with contrast or cardiac echo for further evaluation. 2. Numerous borderline enlarged jejunal mesenteric lymph nodes similar to the prior exam. 3. Coronary artery disease. 4. Focal linear subcapsular area of low density posteriorly in the right lobe of the liver unchanged since previous exam. 5. Hysterectomy. 6. No acute abdominal pelvic abnormality. 7. Cholecystectomy. N.B. : The above Results were Read Back by Matt Barraza MD to Fawad De Leon MD, and understanding confirmed on 02/17/2023 22:35:37 (ET). Electronically Signed: Matt Barraza MD at 22:33 EDT , EKG Initial EKG: Attestation: I personally reviewed and interpreted this EKG as follows: Interpretation: Sinus Rhythm and No Acute Injury Pattern Comments: Sinus rhythm with occasional PVCs, 66 bpm, no STEMI criteria Discharge Plan Triage Chief Complaint: Abd Pain ED Midlevel Provider: Amara Reilly ED Provider: Fawad De Leon Dx/Rx/DC Orders Clinical Impression: Diarrhea, Esophageal spasm, Abdominal pain, Acidosis, lactic Instructions: Abdominal Pain, ED Esophageal Spasm Prescriptions: No Action valsartan 320 mg tablet 320 mg PO DAILY Patient Comments: TAKE 1 TABLET BY MOUTH EVERY DAY glimepiride 1 mg tablet 1 mg PO QAM Rx Instructions: administer with breakfast meloxicam 15 mg tablet 15 mg PO DAILY Patient Comments: TAKE 1 TABLET BY MOUTH ONCE DAILY WITH FOOD oxycodone-acetaminophen 2.5-325 mg tablet 1 tab PO Q6H PRN Patient Comments: TAKE 1 TABLET BY MOUTH EVERY 6 HOURS NEEDED FOR PAIN FOR 10 DAYS INS WILL NOT COVER Florajen Acidophilus 20 billion cell capsule 20,000 mmu cells PO DAILY Patient Comments: TAKE 1 CAPSULE BY MOUTH ONCE DAILY gabapentin 300 mg capsule 600 mg PO QHS meclizine 12.5 mg tablet 12.5 mg PO Q6H PRN clobetasol 0.05 % ointment 1 applic topical BID PRN hyoscyamine sulfate 0.125 mg tablet, sublingual 0.125 mg sublingual Q4H PRN linagliptin 5 mg tablet 5 mg PO DAILY nystatin 100,000 unit/gram powder 1 applic topical BID PRN ondansetron 4 mg tablet,disintegrating 4 mg PO Q6H PRN albuterol sulfate 90 mcg/actuation HFA aerosol inhaler 2 puff inhalation Q6H PRN tolterodine [Detrol LA] 2 MG capsule,extended release 24hr 2 mg PO QHS Patient Comments: URINARY MEDICATION atorvastatin 40 MG tablet 40 mg PO QHS Patient Comments: CHOLESTEROL magnesium 250 mg Tablet 250 mg PO DAILY fluoxetine 40 mg capsule 40 mg PO DAILY amlodipine 10 mg tablet 10 mg PO DAILY metformin 1,000 mg tablet 1,000 mg PO BID hydrochlorothiazide 12.5 mg capsule 12.5 mg PO DAILY bupropion HCl 150 mg tablet extended release 24 hr 150 mg PO DAILY calcium carbonate-vitamin D3 600 mg-5 mcg (200 unit) Tablet 1 tab PO DAILY acetaminophen 500 mg Tablet 1,000 mg PO Q6H PRN PRN (Reason: Pain Score 1-10) Qty: 0 0RF Hold Instructions: Order Changed Primary Care Provider: Dhiraj Julian Referrals: Dhiraj Julian MD [Primary Care Provider] - Activity Restrictions/Additional Instructions: Thank you for trusting us with your care today! Please take Tylenol (2 pills, 650 mg), ibuprofen (2 pills, 400 mg) every 6 hours as needed for pain and fever control. Please return to the emergency department if your symptoms change or worsen. Please follow with your primary care physician for further outpatient evaluation and management. Disposition Disposition: Home, Self Care
[2023-02-17 21:21] LABS: Absolute Lymphocyte Count 4.72 X10^3/uL (0.83-4.51); Absolute Neutrophil Count 4.9 X10^3/uL (2.0-7.7); Basophil# 0.03 X10^3/uL; Basophil% 0.3 % (0-1); Eosinophil# 0.18 X10^3/uL; Eosinophils% 1.7 % (0-5); Hematocrit 37.8 % (37-47); Hemoglobin 11.6 g/dL (12.0-15.0); Lymphocyte # 4.72 X10^3/ul (0.83-4.51); Lymphocyte % 43.4 % (19-41); Mean Corp Hgb Conc 30.7 g/dL (32-36); Mean Corpuscular Hgb 24.4 pg (27.0-32.0); Mean Corpuscular Volume 79.6 fL (81-99); Mean Platelet Vol. 11.1 fl (6.2-12.0); Monocyte% 9.2 % (0-10); NRBC Flagged by Analyzer 0 % (0-5); Platelet Count 197 K/mm3 (150-450); RBC Distribution Width CV 14.8 % (11.6-14.6); RBC Distribution Width SD 42.2 fl (35.1-43.9); Red Blood Count 4.75 M/mm3 (4.2-5.4); White Blood Count 10.9 K/mm3 (4.4-11.0)
[2023-02-17 21:39] LABS: Bacteria 0 SEEN /hpf (None Seen); Mucous, Urine 0 SEEN /hpf (<or=2+); Red Blood Cells-Urine 0 SEEN /hpf (0-5)
[2023-02-17 21:40] LABS: Color, Urine Yellow (Yellow); Glucose, Dipstick Normal (Normal); Ketone-Dipstick Negative (Negative); Leukocyte Esterase-Dipstick Negative /ul (Negative); Nitrite-Dipstick Negative (Negative); Occult Blood-Urine Negative /ul (Negative); Protein-Dipstick Negative (Negative); Urine Bilirubin Dipstick Negative (Negative); Urine Clarity Clear (Clear); Urine Urobilinogen Normal (Normal)
[2023-02-17 21:40] LABS: AST(SGOT) 73 U/L (15-37); Alanine Aminotransfer ALT/SGPT 51 U/L (13-56); Albumin, Serum 3.4 g/dL (3.2-5.0); Alkaline Phosphatase 98 U/L (45-117); Anion Gap 9 (5-15); BUN 30 mg/dL (7-18); BUN/Creat Ratio 27.3 RATIO (10-20); Calcium,Total 9.3 mg/dL (8.5-10.1); Chloride 109 mmol/L (98-107); EST Glomerular Filtration Rate 51 mL/min (>60); Est Glom Filt Rate - Afr Amer 61 mL/min (>60); Estimated Creatinine Clearance 33.18 ml/min; Globulin 3.4 g/dL (2.2-4.2); Glucose 65 mg/dL (74-106); Lipase 52 U/L (13-75); Potassium 4.2 mmol/L (3.5-5.1); Protein, Total 6.8 g/dL (6.4-8.2); Sodium Level 141 mmol/L (136-145); Troponin-I HS 8 pg/mL (3.0-54.0)
[2023-02-17 21:52] LABS: Squamous Epithelial Cells - UA 0-5 SEEN /hpf (5-10); White Blood Cells 0-5 SEEN /hpf (0-5)
[2023-02-17] MEDS: 0.9% Normal Saline 1,000 ML 1000 ML IV (22:07)
[2023-02-17] MEDS: Ketorolac 15 MG/ML Vial IV (22:08)
[2023-02-18 00:16] LABS: Lactic Acid 2.3 mmol/L (0.4-1.9)
[2023-02-18 01:38] LABS: Reflex Lactate? Y
[2023-02-18 03:32] LABS: Reflex Lactate? Y
== END 2023-02-18 00:35 | disposition home or self-care (01) ==
LOC: ED 21:51
PROVIDERS: Physician Assistant; Emergency Provider Emergency Medicine; PCP Family Medicine; Visit Provider Emergency Medicine
DX: K22.4 Dyskinesia of esophagus (principal); F03.90 Unspecified dementia, unspecified severity, without behavioral disturbance, psychotic disturbance, mood disturbance, and anxiety; E11.42 Type 2 diabetes mellitus with diabetic polyneuropathy; E86.0 Dehydration; R19.7 Diarrhea, unspecified; I10 Essential (primary) hypertension; Z87.891 Personal history of nicotine dependence; E87.20 Acidosis, unspecified; E78.00 Pure hypercholesterolemia, unspecified; Z79.899 Other long term (current) drug therapy; Z79.84 Long term (current) use of oral hypoglycemic drugs
CPT/HCPCS: 74177; 80053; 81001; 83605; 83690; 84484; 85025; 93005; 96361; 96374; 99283; J7030; Q9967; A4216

== ENCOUNTER 2023-06-20 16:27 | Observation (INO) | payer MEDICARE, OTHER, SELFPAY ==
[2023-06-20] VITALS (11 sets, daily range): BP systolic 129–161; BP diastolic 61–112; PULSE 62–74; RESP 13–20; TEMP 36.2–36.6; O2SAT 92–99; BMI 24.3; BMI 23.9
--- NOTE | 2023-06-20 16:40 | CT_ITS ---
We are attempting to reach an attending provider to discuss findings. An addendum with communication details will be sent when the communication is complete. INDICATION: Neuro deficit, acute, stroke suspected EXAMINATION: CTA HEAD, AND CTA NECK TECHNIQUE: Routine carotid CT angiogram protocol was performed without and with IV contrast. In addition, images were obtained of the [place]. NASCET criteria using the distal ICAs for comparison were used for evaluation of stenoses. 3D reconstructions were reviewed. A radiation dose optimization technique was used for this scan. IV Contrast dosage and agent: COMPARISON: FINDINGS: --CTA NECK: AORTIC ARCH AND BRANCHES: Normal anatomy, patent. RIGHT CCA: No occlusion, significant stenosis or dissection. RIGHT CAROTID BULB: Atherosclerotic calcifications with approximate 60-70% luminal stenosis. RIGHT ICA: No occlusion, significant stenosis or dissection. LEFT CCA: No occlusion, significant stenosis or dissection. LEFT CAROTID BULB: Atherosclerotic calcifications with less than 50% luminal stenosis. LEFT ICA: No occlusion, significant stenosis or dissection. RIGHT VERTEBRAL ARTERY: No occlusion, significant stenosis or dissection. LEFT VERTEBRAL ARTERY: No occlusion, significant stenosis or dissection. NECK SOFT TISSUES: Unremarkable. --CTA HEAD: --Anterior circulation: ICAs: No significant stenosis at the intracranial/visualized segments. ACAs: No significant stenosis at the visualized segments. ACOM: Present. MCAs: No significant stenosis at the visualized segments. --Posterior circulation: PCOMs: Nonvisualization bilaterally. 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 BASILAR ARTERY: No significant stenosis. VERTEBRAL ARTERIES: No significant stenosis at the intradural/visualized segments. No evidence of intracranial aneurysm or vascular malformation. CT/STROKE CTA Head AND Neck W/Con IMPRESSION: Atherosclerotic calcifications at the carotid bulbs, right more than left. Negative CTA Brain. Electronically Signed: Yrn Orellana DO at 17:19 EST Reading Location ID and State: [facility] / [place] Tel [phone], Service support ,
--- NOTE | 2023-06-20 16:40 | CT_ITS ---
We are attempting to reach an attending provider to discuss findings. An addendum with communication details will be sent when the communication is complete. INDICATION: Neuro deficit, acute, stroke suspected EXAMINATION: CT BRAIN - CT Head Stroke Protocol W/O Contrast Injection TECHNIQUE: Multiple axial images were obtained of the head without intravenous contrast. A radiation dose optimization technique was used for this scan. IV Contrast dosage and agent: None. COMPARISON: FINDINGS: BRAIN PARENCHYMA: No intra- or extra-axial hemorrhage. No evidence of acute infarct. No intracranial mass or mass effect. Mild bilateral white matter microangiopathic ischemic changes. Posterior fossa structures are unremarkable. CSF SPACES: Appropriate for age. No hydrocephalus. Basal cisterns are patent. CALVARIUM, SKULL BASE, PARANASAL SINUSES AND MASTOID AIR CELLS: Clear. No discrete lytic or blastic abnormalities. ORBITS: Both globes, extraocular muscles, optic nerves and retrobulbar fat appear unremarkable. CT/STROKE Brain/Head without Cont IMPRESSION: Age-related changes. No acute intracranial pathology. Electronically Signed: Yrn Orellana DO at 16:57 EST Reading Location ID and State: [facility] / [place] Tel [phone], Service support ,
--- NOTE | 2023-06-20 16:51 | EX.ED.DYSGE1 ---
HPI History of Present Illness Chief Complaint: Stroke Alert Informant: patient and family Narrative Narrative: I was called out to triage to see this patient. I made sure they did not require intubation or acute in room evaluation or therapy and they were sent to CT. I was told that the patient was perfectly normal at 130 this afternoon. Somebody checked on her at 3 or 3030 and she was missing. They do not know where she was. Evidently she was eventually found. She has been vomiting and globally confused. She was having decreased sensation of her left lower extremity but the patient says that she has spinal stenosis and gets that. 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 No other lateralizing finding. A more comprehensive evaluation will be done when we are not in the malave. Patient is not a good informant as she is somewhat confused. She gets distracted and runs off track quite easily. Daughter states that she does have some mild dementia but she is very functional. She was normal at 130. She went over the house to take her to an appointment. The house was open and purse was still in the house. She was trying to find her mother. Evidently a neighbor found her. She had vomited although she has not vomited since. They do not know if she fell and patient denies this but patient's story changes frequently. But patient evidently is much more confused and confabulating stories and this is very far out of her normal. [facility] Medical History Ambulates with cane Arthritis Back pain Cancer Carpal tunnel syndrome Depression Diabetes Dietary restriction Essential hypertension Fecal incontinence Forgetfulness GI bleeding High cholesterol History of hiatal hernia History of pain when walking History of stress test Hx of cataract Hypertension Injury of back Kidney stone on left side Liver lesion, right lobe Migraine headache Multiple lung nodules Nausea Normal stress echocardiogram Open wound Pancreatitis Peripheral neuropathy Type II diabetes mellitus Wears glasses Home Medications atorvastatin 40 mg tablet 40 mg PO QHS cholestrol 02/14/14 [History Last Taken 10 Days Ago ~04/22/21] tolterodine 2 mg capsule,extended release 24 hr (Detrol LA) 2 mg PO QHS overactive bladder 02/14/14 [History Last Taken 05/01/21] magnesium 250 mg tablet 250 mg PO DAILY Supplement 11/14/20 [History Last Taken 04/25/21] valsartan 320 mg tablet 320 mg PO DAILY Cholesterol 04/10/21 [History Last Taken 07/05/21 06:30] amlodipine 10 mg tablet 10 mg PO DAILY bp 05/02/21 [History Last Taken 03/26/22 05:00] bupropion HCl 150 mg 24 hr tablet, extended release 150 mg PO DAILY mood 05/02/21 [History Last Taken 03/26/22 05:00] fluoxetine 40 mg capsule 40 mg PO DAILY depression 05/02/21 [History Last Taken 03/26/22 05:00] hydrochlorothiazide 12.5 mg capsule 12.5 mg PO DAILY bp/fluid 05/02/21 [History Last Taken 10 Days Ago ~04/22/21] metformin 1,000 mg tablet 1,000 mg PO BID dm 05/02/21 [History Last Taken 05/01/21] calcium carbonate 600 mg-vitamin D3 5 mcg (200 unit) tablet 1 tab PO DAILY Supplement 03/21/22 [History Last Taken Unknown] Lactobacillus acidophilus 20 billion cell capsule (Florajen Acidophilus) 20,000 mmu cells PO DAILY 01/25/23 [History Last Taken Unknown] clobetasol 0.05 % topical ointment 1 applic topical BID PRN rash 01/25/23 [History Last Taken Unknown] gabapentin 300 mg capsule 600 mg PO QHS 01/25/23 [History Last Taken Unknown] glimepiride 1 mg tablet 1 mg PO QAM 01/25/23 [History Last Taken Unknown] hyoscyamine sulfate 0.125 mg sublingual tablet 0.125 mg sublingual Q4H PRN dyspepsia 01/25/23 [History Last Taken Unknown] linagliptin 5 mg tablet 5 mg PO DAILY 01/25/23 [History Last Taken Unknown] meclizine 12.5 mg tablet 12.5 mg PO Q6H PRN dizziness 01/25/23 [History Last Taken Unknown] meloxicam 15 mg tablet 15 mg PO DAILY 01/25/23 [History Last Taken Unknown] oxycodone-acetaminophen 2.5 mg-325 mg tablet 1 tab PO Q6H PRN pain 01/25/23 [History Last Taken Unknown] nystatin 100,000 unit/gram topical powder 1 applic topical BID PRN rash 02/13/23 [History Last Taken Unknown] ondansetron 4 mg disintegrating tablet 4 mg PO Q6H PRN nausea and vomiting 02/13/23 [History Last Taken Unknown] Allergy/AdvReac Type Severity Reaction Status Date / Time acetaminophen [From Vicodin] Allergy Severe Anaphylaxis Verified 06/20/23 16:39 duloxetine Allergy Severe Hallucinati Verified 06/20/23 16:39 ons hydrocodone [From Vicodin] Allergy Severe Anaphylaxis Verified 06/20/23 16:39 levofloxacin [From Levaquin] Allergy Unknown Hallucinations, Verified 06/20/23 16:39 joint pain oxaprozin Allergy Unknown Unknown Verified 06/20/23 16:39 prednisone Allergy Unknown Unknown Verified 06/20/23 16:39 codeine Allergy Anaphylaxis Verified 06/20/23 16:39 crab Allergy Swollen Verified 06/20/23 16:39 lymph glands hydrocodone bitartrate AdvReac Vomiting Verified 06/20/23 16:39 [From Vicodin] zolpidem tartrate AdvReac Other Verified 06/20/23 16:39 [From Ambien] Family History Grandmother Parkinson disease Father Hypertension CVA (cerebral vascular accident) Diabetes Myocardial infarction Brother Sarcoid Surgical History H/O: hysterectomy History of 2 sections History of back surgery History of cataract extraction History of cholecystectomy Hx of cystoscopy Hx of detached retina repair Hx of total knee replacement S/P laminectomy Social History household members: none Smoking Status: Never smoker how long ago did patient quit smokin alcohol intake: never substance use type: does not use caffeine: No ROS ROS ED ROS Narrative Review of systems is really unobtainable because the patient cannot give a consistent story. EXAM Physical Exam Narrative Exam Narrative: General: Patient is actually awake alert and pleasant. She is not sleepy or lethargic. HEENT: I do not see signs of trauma or injury to her head. She does have a little left facial droop but she has a history of Young's palsy and that is apparently normal for her. Neck is not tender. No JVD. Lungs are clear. Saturations are normal at 99% on room air showing no hypoxia. Heart is regular. Abdomen is soft and nontender. Extremities show no tenderness. Patient had stated once that she seemed to be leaning to the right but I am not getting any localizing weakness on exam. Occasionally sees she seems to feel less on the left but she has a history of stenosis and has those symptoms sometimes. Her NIH is overall 0 at this time. Occasionally she will go up to a 1 for questions about a month. Const Vital Signs: 06/20/23 16:30 06/20/23 16:57 06/20/23 16:57 Temperature 97.2 F L Temperature Source Temporal Pulse Rate 66 62 Respiratory Rate 16 19 H Blood Pressure 136/112 H 153/67 H Blood Pressure Mean 120 95 Pulse Ox 99 99 99 Oxygen Delivery Method Room Air Room Air Room Air 06/20/23 17:23 06/20/23 16:32 06/20/23 17:41 Temperature Temperature Source Pulse Rate 64 66 67 Respiratory Rate 19 H 15 13 Blood Pressure 161/64 H 156/61 H Blood Pressure Mean 96 92 Pulse Ox 99 98 99 Oxygen Delivery Method Room Air Room Air Room Air 06/20/23 18:17 06/20/23 19:34 06/20/23 20:51 Temperature 97.9 F Temperature Source Pulse Rate 74 64 72 Respiratory Rate 18 20 H 20 H Blood Pressure 153/83 H 147/74 H 129/90 H Blood Pressure Mean 106 98 103 Pulse Ox 97 94 92 Oxygen Delivery Method Room Air Room Air MDM MDM MDM Narrative Medical decision making narrative: Online neurologist saw her. He is getting her NIH at 1 and would not recommend tPA at this time. Patient's CBC shows acute abnormalities. Patient's electrolytes show mild elevation of the BUN and creatinine and glucose but no marked abnormalities to explain her symptoms. Her magnesium is normal. Bones no. Her PT TD and ETT are normal. No Urinalysis is no acute process. My independent interpretation of her CT of the head shows some atrophy and age-related changes but no bleed. Final reading is negative. Final reading of her CTA shows some chronic stenosis but no acute process. Patient is not back to her baseline. We do not know the source of this at this time. Stroke is still certainly possible. This needs to be worked up further and the patient should be in the hospital. She has multiple risk factors. I would think if she had taken too much of her meds such as gabapentin, she would be much more sleepy or lethargic. But she is not back to baseline and she needs further evaluation. I will do the [facility]. Lab Data Attestation: I reviewed the patient's lab results. Labs: Laboratory Results - last 24 hr 06/20/23 06/20/23 16:35 17:57 WBC 9.3 RBC 5.03 Hgb 12.5 Hct 40.1 MCV 79.7 L MCH 24.9 L MCHC 31.2 L RDW Std Deviation 44.6 H RDW Coeff of [place] 15.6 H Plt Count 190 MPV 11.6 Immature Gran % (Auto) 0.300 Neut % (Auto) 64.3 Lymph % (Auto) 24.7 Henry % (Auto) 9.5 Eos % (Auto) 0.8 Baso % (Auto) 0.4 Absolute Neuts (auto) 6.0 Absolute Lymphs (auto) 2.29 Nucleated RBC % 0 PT 13.5 INR 1.0 APTT 25.8 Sodium 139 Potassium 4.0 Chloride 106 Carbon Dioxide 26.0 Anion Gap 7 BUN 28 H Creatinine 1.13 H Estim Creat Clear Calc 31.75 Est GFR (MDRD) Af Amer 59 L Est GFR (MDRD) Non-Af 49 L BUN/Creatinine Ratio 24.8 H Glucose 119 H Calcium 9.6 Magnesium 1.8 Troponin I High Sens 11 Urine Color Yellow Urine Clarity Clear Urine pH 8.0 Ur Specific [place] 1.015 Urine Protein 15 H Urine Glucose (UA) Normal Urine Ketones 50 H Urine Occult Blood Negative Urine Nitrite Negative Urine Bilirubin Negative Urine Urobilinogen Normal Ur Leukocyte Esterase 25 H Urine RBC 0 SEEN Urine WBC 0-5 SEEN Ur Squamous Epith Cells 0-5 SEEN Urine Bacteria 0 SEEN Urine Mucus 0 SEEN Radiography Diagnostic Testing: Clinical Impression(s) from Imaging Studies Brain CT 06/20/23 16:40 IMPRESSION: Age-related changes. No acute intracranial pathology. Electronically Signed: Yrn Orellana DO at 16:57 EST Reading Location ID and State: [facility] / [place] Tel [phone], Service support , ADDENDUM: 06/20/23 0549 IMPRESSION: Age-related changes. No acute intracranial pathology. N.B. : The above Results were Read Back by Yrn Orellana DO to Jesus Hilario MD, and understanding confirmed on 06/20/2023 17:11:05 (ET). Electronically Signed: Yrn Orellana DO at 16:57 EST , Head/Neck CTA 06/20/23 16:40 IMPRESSION: Atherosclerotic calcifications at the carotid bulbs, right more than left. Negative CTA Brain. Electronically Signed: Yrn Orellana DO at 17:19 EST , ADDENDUM: 06/20/23 1727 IMPRESSION: Atherosclerotic calcifications at the carotid bulbs, right more than left. Negative CTA Brain. N.B. : The above Results were Read Back by Yrn Orellana DO to Jesus Hilario MD, and understanding confirmed on 06/20/2023 17:20:07 (ET). Electronically Signed: Yrn Orellana DO at 17:19 EST , Chest X-Ray 06/20/23 17:20 IMPRESSION: No radiographic evidence of acute cardiopulmonary disease. Electronically Signed: Yrn Orellana DO at 17:39 EST , Management Discussion w/another healthcare provider: Hospitalist and Clinical Instructor Discharge Plan Triage Chief Complaint: Stroke Alert Other Complaint: Neuro S/Sx ED Provider: Jesus Hilario Dx/Rx/DC Orders Clinical Impression: Acute alteration in mental status, History of dementia, Mild dehydration Prescriptions: No Action valsartan 320 mg tablet 320 mg PO DAILY Patient Comments: TAKE 1 TABLET BY MOUTH EVERY DAY glimepiride 1 mg tablet 1 mg PO QAM Rx Instructions: administer with breakfast meloxicam 15 mg tablet 15 mg PO DAILY Patient Comments: TAKE 1 TABLET BY MOUTH ONCE DAILY WITH FOOD oxycodone-acetaminophen 2.5-325 mg tablet 1 tab PO Q6H PRN (Reason: pain) Patient Comments: TAKE 1 TABLET BY MOUTH EVERY 6 HOURS NEEDED FOR PAIN FOR 10 DAYS INS WILL NOT COVER Florajen Acidophilus 20 billion cell capsule 20,000 mmu cells PO DAILY Patient Comments: TAKE 1 CAPSULE BY MOUTH ONCE DAILY gabapentin 300 mg capsule 600 mg PO QHS meclizine 12.5 mg tablet 12.5 mg PO Q6H PRN (Reason: dizziness) clobetasol 0.05 % ointment 1 applic topical BID PRN (Reason: rash) hyoscyamine sulfate 0.125 mg tablet, sublingual 0.125 mg sublingual Q4H PRN (Reason: dyspepsia) linagliptin 5 mg tablet 5 mg PO DAILY nystatin 100,000 unit/gram powder 1 applic topical BID PRN (Reason: rash) ondansetron 4 mg tablet,disintegrating 4 mg PO Q6H PRN (Reason: nausea and vomiting) tolterodine [Detrol LA] 2 MG capsule,extended release 24hr 2 mg PO QHS Patient Comments: URINARY MEDICATION atorvastatin 40 MG tablet 40 mg PO QHS Patient Comments: CHOLESTEROL magnesium 250 mg Tablet 250 mg PO DAILY fluoxetine 40 mg capsule 40 mg PO DAILY amlodipine 10 mg tablet 10 mg PO DAILY metformin 1,000 mg tablet 1,000 mg PO BID hydrochlorothiazide 12.5 mg capsule 12.5 mg PO DAILY bupropion HCl 150 mg tablet extended release 24 hr 150 mg PO DAILY calcium carbonate-vitamin D3 600 mg-5 mcg (200 unit) Tablet 1 tab PO DAILY Primary Care Provider: Dhiraj Julian Referrals: Dhiraj Julian MD [Primary Care Provider] -
[2023-06-20 16:52] LABS: Absolute Lymphocyte Count 2.29 X10^3/uL (0.83-4.51); Basophil# 0.04 X10^3/uL; Basophil% 0.4 % (0-1); Eosinophil# 0.07 X10^3/uL; Eosinophils% 0.8 % (0-5); Hematocrit 40.1 % (37-47); Hemoglobin 12.5 g/dL (12.0-15.0); Lymphocyte # 2.29 X10^3/ul (0.83-4.51); Lymphocyte % 24.7 % (19-41); Mean Corp Hgb Conc 31.2 g/dL (32-36); Mean Corpuscular Hgb 24.9 pg (27.0-32.0); Mean Corpuscular Volume 79.7 fL (81-99); Mean Platelet Vol. 11.6 fl (6.2-12.0); Monocyte# 0.88 X10^3/uL; Monocyte% 9.5 % (0-10); NRBC Flagged by Analyzer 0 % (0-5); Neutrophil # 5.98 X10^3/uL (2.7-7.7); Neutrophil % 64.3 % (47-70); Platelet Count 190 K/mm3 (150-450); RBC Distribution Width CV 15.6 % (11.6-14.6); RBC Distribution Width SD 44.6 fl (35.1-43.9); Red Blood Count 5.03 M/mm3 (4.2-5.4); White Blood Count 9.3 K/mm3 (4.4-11.0)
[2023-06-20 17:10] LABS: Anion Gap 7 (5-15); BUN 28 mg/dL (7-18); BUN/Creat Ratio 24.8 RATIO (10-20); Calcium,Total 9.6 mg/dL (8.5-10.1); Chloride 106 mmol/L (98-107); Creatinine, Serum 1.13 mg/dL (0.55-1.02); EST Glomerular Filtration Rate 49 mL/min (>60); Est Glom Filt Rate - Afr Amer 59 mL/min (>60); Estimated Creatinine Clearance 31.75 ml/min; Glucose 119 mg/dL (74-106); Magnesium 1.8 mg/dL (1.6-2.6); Sodium Level 139 mmol/L (136-145); Troponin-I HS 11 pg/mL (3.0-54.0)
--- NOTE | 2023-06-20 17:20 | RAD_ITS ---
INDICATION: Neuro deficit, acute, stroke suspected EXAMINATION/TECHNIQUE: X-RAY - XR Chest 1 View COMPARISON: July 15, 2022 FINDINGS: LINES/DEVICES: None. LUNGS: No consolidation, edema or effusion. No pneumothorax. MEDIASTINUM AND CARDIOVASCULAR STRUCTURES: Cardiac silhouette not enlarged. Central airways and mediastinal contour are unremarkable. BONES AND SOFT TISSUES: Unremarkable. RAD/Chest 1 View IMPRESSION: No radiographic evidence of acute cardiopulmonary disease. Electronically Signed: Yrn Orellana DO at 17:39 EST ,
[2023-06-20 17:21] LABS: Partial Thromboplast Time 25.8 Seconds (24.1-36.2); Prothrombin Time (Protime)PT. 13.5 SECONDS (11.7-14.9)
[2023-06-20 18:06] LABS: Bacteria 0 SEEN /hpf (None Seen); Mucous, Urine 0 SEEN /hpf (<or=2+); Red Blood Cells-Urine 0 SEEN /hpf (0-5)
[2023-06-20 18:11] LABS: Color, Urine Yellow (Yellow); Glucose, Dipstick Normal (Normal); Ketone-Dipstick 50 mg/dl (Negative); Leukocyte Esterase-Dipstick 25 /ul (Negative); Nitrite-Dipstick Negative (Negative); Occult Blood-Urine Negative /ul (Negative); Protein-Dipstick 15 mg/dl (Negative); Specific Gravity, Urine 1.015 (1.002-1.030); Squamous Epithelial Cells - UA 0-5 SEEN /hpf (5-10); Urine Bilirubin Dipstick Negative (Negative); Urine Clarity Clear (Clear); Urine Urobilinogen Normal (Normal); White Blood Cells 0-5 SEEN /hpf (0-5)
--- NOTE | 2023-06-20 20:55 | HP.PCM.HOS_ITS ---
[facility] - General General Date of Admission: 06/20/23 Date of Service: 06/20/23 Chief Complaint: Altered mental status HPI Narrative DILCIA HENRY, is a 83 F with a past medical history of essential hypertension, hyperlipidemia, diabetes mellitus type 2; of unknown control, history of mild dementia; but the patient still lives independently, remote history of Young's palsy; with persistent left facial droop, history of migraine headaches, history of pancreatitis, depression; since the of her approximately 2 years ago, history of bladder cancer, peripheral neuropathy, history of spinal stenosis; with decreased sensation in the left lower extremity and osteoarthritis; status post left total knee replacement who presents to [facility] ER complaining of altered mental status. Ms. Henry is not a fully-reliable historian at this time as she has a limited recollection of today's earlier events so information was gathered from chart, medical staff and computer. According to the records patient was last known to be normal approximately 1:30 in the afternoon earlier today on June 20, 2023 then someone went to check on her at approximately 3 PM and noted she was missing from her home. Apparently she was found by one of her neighbors and admitted to nausea, vomiting and she was noted to be severely confused. The patient's daughter was present in the ER and she claimed that though her mother does have mild dementia she has been very functional - up till now. The patient is not sure if she fell but she has no obvious signs of recent trauma or abrasions. The daughter reports the patient is much more confused than normal and confabulating stories that is very out of character for her. There is no report of fever, chills, diarrhea, constipation, recent illness, recent medication changes or known alcohol abuse and her urine drug screen is negative. In the ER she was noted to have a CT scans of the brain, head and neck that were negative for acute pathologic changes that would explain her acute delirium with persistent confusion in the setting of chronic dementia but her laboratory test did reveal evidence of likely dehydration with a serum creatinine of 1.13 mg/dL and a BUN of 28 mg/dL present on admission and she was then admitted to the CDU under observation status for a TIA/CVA workup for a stay that is expected to be less than 48 hours. [facility] Medical History Ambulates with cane Arthritis Back pain Cancer Carpal tunnel syndrome Depression Diabetes Dietary restriction Essential hypertension Fecal incontinence Forgetfulness GI bleeding High cholesterol History of hiatal hernia History of pain when walking History of stress test Hx of cataract Hypertension Injury of back Kidney stone on left side Liver lesion, right lobe Migraine headache Multiple lung nodules Nausea Normal stress echocardiogram Open wound Pancreatitis Peripheral neuropathy Type II diabetes mellitus Wears glasses Home Medications atorvastatin 40 mg tablet 40 mg PO QHS cholestrol 02/14/14 [History Last Taken 10 Days Ago ~04/22/21] tolterodine 2 mg capsule,extended release 24 hr (Detrol LA) 2 mg PO QHS overactive bladder 02/14/14 [History Last Taken 05/01/21] magnesium 250 mg tablet 250 mg PO DAILY Supplement 11/14/20 [History Last Taken 04/25/21] valsartan 320 mg tablet 320 mg PO DAILY Cholesterol 04/10/21 [History Last Taken 07/05/21 06:30] amlodipine 10 mg tablet 10 mg PO DAILY bp 05/02/21 [History Last Taken 03/26/22 05:00] bupropion HCl 150 mg 24 hr tablet, extended release 150 mg PO DAILY mood 05/02/21 [History Last Taken 03/26/22 05:00] fluoxetine 40 mg capsule 40 mg PO DAILY depression 05/02/21 [History Last Taken 03/26/22 05:00] hydrochlorothiazide 12.5 mg capsule 12.5 mg PO DAILY bp/fluid 05/02/21 [History Last Taken 10 Days Ago ~04/22/21] metformin 1,000 mg tablet 1,000 mg PO BID dm 05/02/21 [History Last Taken ] calcium carbonate 600 mg-vitamin D3 5 mcg (200 unit) tablet 1 tab PO DAILY Supplement 03/21/22 [History Last Taken Unknown] Lactobacillus acidophilus 20 billion cell capsule (Florajen Acidophilus) 20,000 mmu cells PO DAILY 01/25/23 [History Last Taken Unknown] clobetasol 0.05 % topical ointment 1 applic topical BID PRN rash 01/25/23 [History Last Taken Unknown] gabapentin 300 mg capsule 600 mg PO QHS 01/25/23 [History Last Taken Unknown] glimepiride 1 mg tablet 1 mg PO QAM 01/25/23 [History Last Taken Unknown] hyoscyamine sulfate 0.125 mg sublingual tablet 0.125 mg sublingual Q4H PRN dyspe psia 01/25/23 [History Last Taken Unknown] linagliptin 5 mg tablet 5 mg PO DAILY 01/25/23 [History Last Taken Unknown] meclizine 12.5 mg tablet 12.5 mg PO Q6H PRN dizziness 01/25/23 [History Last Taken Unknown] meloxicam 15 mg tablet 15 mg PO DAILY 01/25/23 [History Last Taken Unknown] oxycodone-acetaminophen 2.5 mg-325 mg tablet 1 tab PO Q6H PRN pain 01/25/23 [History Last Taken Unknown] nystatin 100,000 unit/gram topical powder 1 applic topical BID PRN rash 02/13/23 [History Last Taken Unknown] ondansetron 4 mg disintegrating tablet 4 mg PO Q6H PRN nausea and vomiting 02/13/23 [History Last Taken Unknown] Allergy/AdvReac Type Severity Reaction Status Date / Time acetaminophen [From Vicodin] Allergy Severe Anaphylaxis Verified 06/20/23 16:39 duloxetine Allergy Severe Hallucinati Verified 06/20/23 16:39 ons hydrocodone [From Vicodin] Allergy Severe Anaphylaxis Verified 06/20/23 16:39 levofloxacin [From Levaquin] Allergy Unknown Hallucinations, Verified 06/20/23 16:39 joint pain oxaprozin Allergy Unknown Unknown Verified 06/20/23 16:39 prednisone Allergy Unknown Unknown Verified 06/20/23 16:39 codeine Allergy Anaphylaxis Verified 06/20/23 16:39 crab Allergy Swollen Verified 06/20/23 16:39 lymph glands hydrocodone bitartrate AdvReac Vomiting Verified 06/20/23 16:39 [From Vicodin] zolpidem tartrate AdvReac Other Verified 06/20/23 16:39 [From Ambien] Family History Grandmother Parkinson disease Father Hypertension CVA (cerebral vascular accident) Diabetes Myocardial infarction Brother Sarcoid Surgical History H/O: hysterectomy History of 2 sections History of back surgery History of cataract extraction History of cholecystectomy Hx of cystoscopy Hx of detached retina repair Hx of total knee replacement S/P laminectomy Social History household members: none Smoking Status: Never smoker how long ago did patient quit smokin alcohol intake: never substance use type: does not use caffeine: No ROS ROS Narrative Full review of systems could not be completed due to patient's persistent confusion and tangential manner of answering questions. Review of Systems ROS Unobtainable: due to mental condition Vital Signs Vital Signs Vital Signs: 06/20/23 16:30 06/20/23 16:57 06/20/23 16:57 Temperature 97.2 F L Temperature Source Temporal Pulse Rate 66 62 Respiratory Rate 16 19 H Blood Pressure 136/112 H 153/67 H Blood Pressure Mean 120 95 Pulse Ox 99 99 99 Oxygen Delivery Method Room Air Room Air Room Air 06/20/23 17:23 06/20/23 16:32 06/20/23 17:41 Temperature Temperature Source Pulse Rate 64 66 67 Respiratory Rate 19 H 15 13 Blood Pressure 161/64 H 156/61 H Blood Pressure Mean 96 92 Pulse Ox 99 98 99 Oxygen Delivery Method Room Air Room Air Room Air 06/20/23 18:17 06/20/23 19:34 06/20/23 20:51 Temperature 97.9 F Temperature Source Pulse Rate 74 64 72 Respiratory Rate 18 20 H 20 H Blood Pressure 153/83 H 147/74 H 129/90 H Blood Pressure Mean 106 98 103 Pulse Ox 97 94 92 Oxygen Delivery Method Room Air Room Air Weight Weight: 137 lb 9.095 oz Body Mass Index (BMI) 24.3 Physical Exam Narrative Patient is pleasantly confused and eager to interact. Const alert, no apparent distress, average body habitus and healthy appearing General Appearance: cooperative Orientation / Consciousness: confused HEENT normocephalic, head/scalp atraumatic, hearing grossly normal bilaterally, moist oral mucous membranes and oropharynx normal Eyes PERRL, EOMs intact bilaterally and conjunctivae normal Neck no lymphadenopathy and supple Resp normal respiratory effort, no retractions, no use of accessory muscles and clear to auscultation bilaterally Cardio regular rate and regular rhythm GI normal to inspection, nondistended, normoactive bowel sounds, soft to palpation, non-tender and non-distended Extremity normal to inspection, full ROM and no clubbing, cyanosis or edema Skin Skin Narrative: Patient has no evidence of rash at this time. Neuro CN's II-XII intact bilaterally and moves all extremities Sensorium / Orientation: awake, alert and oriented to person Speech: speech normal Motor Exam: strength 5/5 throughout Psych affect normal Psych Narrative: Patient is pleasantly confused, tangential and sometimes nonsensical in her responses to questions. Results Medical Records Data Attestation: I reviewed the patient's medical records Lab / Micro Data Attestation: I reviewed the patient's lab results. 06/20/23 16:35 06/20/23 16:35 Labs: Laboratory Results - last 24 hr 06/20/23 16:35: WBC 9.3, RBC 5.03, Hgb 12.5, Hct 40.1, MCV 79.7 L, MCH 24.9 L, MCHC 31.2 L, RDW Std Deviation 44.6 H, RDW Coeff of Finesse 15.6 H, Plt Count 190, MPV 11.6, Immature Gran % (Auto) 0.300, Neut % (Auto) 64.3, Lymph % (Auto) 24.7, [place] % (Auto) 9.5, Eos % (Auto) 0.8, Baso % (Auto) 0.4, Absolute Neuts (auto) 6.0, Absolute Lymphs (auto) 2.29, Nucleated RBC % 0, PT 13.5, INR 1.0, APTT 25.8, Sodium 139, Potassium 4.0, Chloride 106, Carbon Dioxide 26.0, Anion Gap 7, BUN 28 H, Creatinine 1.13 H, Estim Creat Clear Calc 31.75, Est GFR (MDRD) Af Amer 59 L, Est GFR (MDRD) Non-Af 49 L, BUN/Creatinine Ratio 24.8 H, Glucose 119 H, Calcium 9.6, Magnesium 1.8, Troponin I High Sens 11 06/20/23 17:57: Urine Color Yellow, Urine Clarity Clear, Urine pH 8.0, Ur Specific [place] 1.015, Urine Protein 15 H, Urine Glucose (UA) Normal, Urine Ketones 50 H, Urine Occult Blood Negative, Urine Nitrite Negative, Urine Bilirubin Negative, Urine Urobilinogen Normal, Ur Leukocyte Esterase 25 H, Urine RBC 0 SEEN, Urine WBC 0-5 SEEN, Ur Squamous Epith Cells 0-5 SEEN, Urine Bacteria 0 SEEN, Urine Mucus 0 SEEN Imagaing Radiology Impression Brain CT 06/20/23 16:40 IMPRESSION: Age-related changes. No acute intracranial pathology. Electronically Signed: Yrn Orellana DO at 16:57 EST , ADDENDUM: 06/20/23 1717 IMPRESSION: Age-related changes. No acute intracranial pathology. N.B. : The above Results were Read Back by Yrn Orellana DO to Jesus Hilario MD, and understanding confirmed on 06/20/2023 17:11:05 (ET). Electronically Signed: Yrn Orellana DO at 16:57 EST , Head/Neck CTA 06/20/23 16:40 IMPRESSION: Atherosclerotic calcifications at the carotid bulbs, right more than left. Negative CTA Brain. Electronically Signed: Yrn Orellana DO at 17:19 EST , ADDENDUM: 06/20/23 1727 IMPRESSION: Atherosclerotic calcifications at the carotid bulbs, right more than left. Negative CTA Brain. N.B. : The above Results were Read Back by Yrn Orellana DO to Jesus Hilario MD, and understanding confirmed on 06/20/2023 17:20:07 (ET). Electronically Signed: Yrn Orellana DO at 17:19 EST , Chest X-Ray 06/20/23 17:20 IMPRESSION: No radiographic evidence of acute cardiopulmonary disease. Electronically Signed: Yrn Orellana DO at 17:39 EST , Assessment & Plan Assessment/Plan (1) Acute alteration in mental status: (2) History of dementia: (3) Mild dehydration: PLAN: Plan 1. Acute delirium with alteration in mental status with persistent confusion since at least 3 PM this afternoon in the setting of chronic mild dementia - Admit to CDU under observation status. Give empiric aspirin and statin. Allow for permissive hypertension until CVA definitively ruled out on MRI. Check MRI of the brain to assess for acute infarct or inflammation that would explain her symptomatology. Check carotid Doppler to evaluate for stenosis. Check echocardiogram to evaluate left ventricular ejection fraction. Minimize STOVE FITTER- active medications. Check TSH, B12 and folate levels to evaluate for potential nutritional deficiencies that may clarify potential ways to improve her clinical condition. Check urine drug screen including blood alcohol concentration is pending at this time to fully evaluate for potential reversible causes of confusion. Finally, we will consult [facility] to evaluate this patient in the a.m. for further recommendations with help appreciated in advance. 2. Mild dehydration present on admission with serum creatinine of 1.13 mg/dL and BUN of 28 mg/dL - Volume resuscitate and then recheck BMP in the a.m. to ensure correction. 3. 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 4. Depression; since the of her approximately 2 years ago compounding #1 - #3 - Resume her antidepressant regimen as previous. 5. Essential hypertension - Hold scheduled antihypertensives to allow for p ermissive hypertension until CVA is definitively ruled out on MRI. 5. Hyperlipidemia - Continue atorvastatin as previous and check lipid profile this admission in light of #1. 6. Diabetes mellitus type 2; of unknown control - ADA diet. Fingerstick blood sugars before every meal and at bedtime plus low intensity sliding scale insulin. Check hemoglobin A1c to objectively evaluate quality of diabetic control. 7. History of migraine headaches - Stable with no evidence of recurrence at t his time. 8. History of pancreatitis - Stable. 9. History of bladder cancer - Noted. 10. Osteoarthritis; status post left total knee replacement - Stable. 11. DVT prophylaxis - Lovenox 40 mg subcu daily plus SCDs. Total time: Approximately 70 minutes. Charges/Coding Visit Charges OBSV E&M: 54706 Observ/hosp same date L2
[2023-06-20 21:28] LABS: Alcohol, Blood (Medical)-Serum < 3.0 mg/dL
--- NOTE | 2023-06-20 21:28 | CDU_ITS ---
Reason For Study: CONFUSION W/SUSPECTED TIA Rt. Velocities/BP Lt. Velocities/BP Prox CCA 53.5/8.1 cm/sec. Prox CCA 90.8/16.0 cm/sec. Mid CCA 61.0/11.0 cm/sec. Mid CCA 101.8/19.3 cm/sec. Dist CCA 58.2/10.0 cm/sec. Dist CCA 88.6/17.1 cm/sec. Prox ICA 176.3/22.6 cm/sec. Prox ICA 78.7/14.9 cm/sec. Mid ICA 143.6/17.5 cm/sec. Mid ICA 72.1/9.5 cm/sec. Dist ICA 56.7/8.4 cm/sec. Dist ICA 67.7/13.8 cm/sec. Rt. ICA/CCA = 176.3/61.0=2.9. Lt. ICA/CCA = 78.7/101.8=0.8. Prox ECA 226.8/18.2 cm/sec. Prox ECA 80.9/9.5 cm/sec. Rt. Vert. 53.4/9.5 cm/sec. Lt. Vert. 46.8/9.2 cm/sec. Right Extracranial There is heterogeneous, irregular atherosclerotic plaque noted in the right common carotid artery. There is heterogeneous, irregular atherosclerotic plaque noted in the right internal carotid artery. There is heterogeneous, irregular atherosclerotic plaque noted in the right external carotid artery. Antegrade flow is noted in the right vertebral artery. Left Extracranial There is heterogeneous, irregular atherosclerotic plaque noted in the left common carotid artery. There is heterogeneous, irregular atherosclerotic plaque noted in the left internal carotid artery. There is heterogeneous, irregular atherosclerotic plaque noted in the left external carotid artery. Antegrade flow is noted in the left vertebral artery. Procedure Carotid Duplex 70969. This is a Carotid Duplex examination using B-mode, color flow and specral Doppler. Exam performed portable in patient room. 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 Less than 50% stenosis left external carotid Patent, antegrade vertebrals bilaterally Slight change on right from 03/12/19 Ordering Physician: Surjit Guerrero Referring Physician: Dhiraj Julian Performed By: Rina Cazares RDCS, RVT
--- NOTE | 2023-06-20 21:46 | ECHOD_ITS ---
Reason For Study: TIA/CVA Procedure This was a 2D Doppler, Color Flow transthoracic echocardiogram. Exam performed portable in patient room. Left Ventricle Normal LV size. Mild concentric left ventricular hypertrophy. The left ventricular ejection fraction is 65 %. Stage 2 diastolic dysfunction. Right Ventricle Normal right ventricle. Atria Severely dilated left atrium. Filamentous structure noted in the left atrium. Cannot rule out left atrial mass. Recommend AGA or cardiac MRI for further evaluation. The right atrium is mildly enlarged. Bubble contrast study negative for right to left interatrial shunt. Mitral Valve Trivial mitral valve insufficiency. Tricuspid Valve Mild to moderate (1-2+) tricuspid valve insufficiency. Right ventricular systolic pressure estimated to be 40 mmHg. Aortic Valve Aortic sclerosis, no stenosis. Pulmonic Valve The pulmonic valve is not well visualized. Great Vessels The aortic root is not well visualized. Pericardium/Pleural Trivial pericardial effusion. Medication Performed a rapid injection of agitated mix of 9 cc saline and 1cc air to assess for atrial septal defect. MMode/2D Measurements & Calculations LVIDd: 4.6 cm IVSd: 1.2 cm LA dimension: 4.6 cm LVIDs: 2.8 cm LVPWd: 0.85 cm RVDd: 3.4 cm FS: 40.2 % LAV(MOD-bp): 71.9 ml LVAd ap4: 23.5 cm2 SV(MOD-sp4): 39.7 ml LAV(MOD-bp) Indexed: 43.9 ml/m2 LVLd ap4: 6.6 cm LAV(MOD-sp2): 62.1 ml EDV(MOD-sp4): 68.1 ml LAV(MOD-sp4): 79.3 ml EDV(sp4-el): 70.5 ml LVAs ap4: 13.2 cm2 LVLs ap4: 5.3 cm ESV(MOD-sp4): 28.5 ml ESV(sp4-el): 27.9 ml EF(MOD-sp4): 58.2 % EF(sp4-el): 60.5 % SV(sp4-el): 42.6 ml LA A4 area: 24.3 cm2 RA A4 area: 18.4 cm2 TAPSE: 2.3 cm Time Measurements MV dec time: 0.17 sec Doppler Measurements & Calculations MV E max joseluis: 103.2 cm/sec Lat Peak E' Joseluis: 8.9 cm/sec Med Peak E' Joseluis: 7.3 cm/sec MV A max joseluis: 87.8 cm/sec E/E' lat: 11.7 E/E' med: 14.2 MV E/A: 1.2 MV V2 max: 125.5 cm/sec MV P1/2t max joseluis: 129.6 cm/sec Ao V2 max: 139.1 cm/sec MV max P.3 mmHg MV P1/2t: 61.0 msec Ao max P.8 mmHg MV V2 mean: 63.8 cm/sec Ao V2 mean: 94.2 cm/sec MV mean P.0 mmHg MV dec slope: 622.5 cm/sec2 Ao mean P.2 mmHg MV V2 VTI: 39.6 cm MVA(P1/2t): 3.6 cm2 Ao V2 VTI: 35.1 cm AV (velocity ratio): 0.87 LV V1 max: 109.8 cm/sec PA V2 max: 102.3 cm/sec TR max joseluis: 294.2 cm/sec LV V1 max P.8 mmHg TR max P.6 mmHg LV V1 mean P.9 mmHg LV V1 mean: 80.1 cm/sec LV V1 VTI: 30.5 cm ECHO/Echo Complete Interpretation Summary Mild concentric left ventricular hypertrophy. The left ventricular ejection fraction is 65 %. Stage 2 diastolic dysfunction. Severely dilated left atrium. Filamentous structure noted in the left atrium. C annot rule out left atrial mass. Recommend AGA or cardiac MRI for further evaluation. The right atrium is mildly enlarged. Mild to moderate (1-2+) tricuspid valve insufficiency. Right ventricular systolic pressure estimated to be 40 mmHg. Aortic sclerosis, no stenosis. Trivial pericardial effusion. Ordering Physician: Surjit Guerrero Referring Physician: KATHIE OBRIEN Performed By: Luis A Farrell RCS
--- NOTE | 2023-06-20 21:46 | MRI_ITS ---
HISTORY: Persistent confusion with suspected TIA versus CVA. TECHNIQUE: Multiplanar and multisequence MR images of the brain were obtained without contrast. 278 images. COMPARISON: CT prior day, MRI 04/20/2021. FINDINGS: BRAIN PARENCHYMA: Multiple foci and small zones of increased T2 FLAIR signal in the bilateral cerebral white matter again seen. No abnormal focus of restricted diffusion. No acute intracranial hemorrhage identified. CSF SPACES: Chronic volume loss. No significant midline shift or other mass effect.No extra-axial fluid collection. VASCULAR SYSTEM: Major intracranial flow voids are maintained. PARANASAL SINUSES AND MASTOID AIR CELLS: Trace fluid in the right mastoid air cells. ORBITS: Right lens resection. MRI/Brain without Contrast IMPRESSION: No evidence for acute infarct. Chronic involutional and white matter changes. Electronically Signed: Larissa Castillo MD at 12:09 EST ,
[2023-06-20 22:02] LABS: Vitamin B12 271 pg/mL (211-911)
[2023-06-20] MEDS: 0.9% Normal Saline (1000mL) 1,000 ML 100 ML IV (22:43)
[2023-06-20] MEDS: Aspirin 81 MG TAB.CHEW 162 MG PO (22:50)
[2023-06-20] MEDS: Tolterodine Tartrate 2 MG CAP.SA PO (22:50)
[2023-06-20] MEDS: Atorvastatin Calcium 40 MG Tablet PO (22:50)
[2023-06-21] VITALS (8 sets, daily range): BP systolic 135–157; BP diastolic 60–98; PULSE 56–70; RESP 12–18; TEMP 36.6–37.1; O2SAT 92–99; BMI 24.0
[2023-06-21 00:07] LABS: Bedside Glucose 98 mg/dL (74-106)
[2023-06-21 03:02] LABS: Amphetamine Urine VISTA NEGATIVE (<1000 ng/mL); Barbiturate Urine VISTA NEGATIVE (< 200 ng/mL); Benzodiazepine Urine VISTA NEGATIVE (< 200 ng/mL); Cocaine Urine VISTA NEGATIVE (< 300 ng/mL); Ecstacy Urine VISTA NEGATIVE (< 500 ng/mL); Methadone Urine VISTA NEGATIVE (< 300 ng/mL); PCP Urine VISTA NEGATIVE (< 25 ng/mL); THC Urine VISTA NEGATIVE (< 50 ng/mL); Vista UDS pH Range 8
[2023-06-21 04:16] LABS: Bedside Glucose 104 mg/dL (74-106)
[2023-06-21 06:30] LABS: Absolute Lymphocyte Count 2.37 X10^3/uL (0.83-4.51); Absolute Neutrophil Count 4.7 X10^3/uL (2.0-7.7); Basophil# 0.04 X10^3/uL; Basophil% 0.5 % (0-1); Eosinophil# 0.14 X10^3/uL; Eosinophils% 1.7 % (0-5); Hemoglobin 11.1 g/dL (12.0-15.0); Lymphocyte # 2.37 X10^3/ul (0.83-4.51); Lymphocyte % 29.4 % (19-41); Mean Corp Hgb Conc 30.8 g/dL (32-36); Mean Corpuscular Hgb 24.8 pg (27.0-32.0); Mean Corpuscular Volume 80.4 fL (81-99); Mean Platelet Vol. 11.4 fl (6.2-12.0); Monocyte# 0.83 X10^3/uL; Monocyte% 10.3 % (0-10); NRBC Flagged by Analyzer 0 % (0-5); Neutrophil # 4.66 X10^3/uL (2.7-7.7); Neutrophil % 57.9 % (47-70); Platelet Count 167 K/mm3 (150-450); RBC Distribution Width CV 15.6 % (11.6-14.6); RBC Distribution Width SD 44.9 fl (35.1-43.9); Red Blood Count 4.48 M/mm3 (4.2-5.4); White Blood Count 8.1 K/mm3 (4.4-11.0)
[2023-06-21 07:02] LABS: Bedside Glucose 109 mg/dL (74-106)
[2023-06-21 07:22] LABS: ALB/GLOB Ratio 1.1 RATIO (0.9-2.4); AST(SGOT) 24 U/L (15-37); Alanine Aminotransfer ALT/SGPT 21 U/L (13-56); Albumin, Serum 3.3 g/dL (3.2-5.0); Alkaline Phosphatase 71 U/L (45-117); Anion Gap 8 (5-15); BUN 25 mg/dL (7-18); BUN/Creat Ratio 24.8 RATIO (10-20); Calcium,Total 8.5 mg/dL (8.5-10.1); Chloride 108 mmol/L (98-107); Cholesterol 137 mg/dL (200); Creatinine, Serum 1.01 mg/dL (0.55-1.02); EST Glomerular Filtration Rate 56 mL/min (>60); Est Glom Filt Rate - Afr Amer 67 mL/min (>60); Estimated Creatinine Clearance 35.52 ml/min; Glucose 109 mg/dL (74-106); High Density Lipoprotein 42 mg/dL; Phosphorus 3.5 mg/dL (2.5-4.9); Potassium 3.6 mmol/L (3.5-5.1); Protein, Total 6.3 g/dL (6.4-8.2); Sodium Level 140 mmol/L (136-145); Thyroid Stim Hormone (TSH) 1.59 uIU/mL (0.358-3.74); Triglycerides 124 mg/dL; Very Low Density Lipoprotein 25 mg/dL (5-40)
--- NOTE | 2023-06-21 08:58 | PN.HOSP_ITS ---
Reason for Visit Reason for Visit: Diagnoses Dehydration (06/20/23) Altered mental status, unspecified (06/20/23) Personal history of other mental and behavioral disorders (06/20/23) Objective Data Objective Data Vital Signs: Vital Signs Temp Pulse Resp BP Pulse Ox O2 Del Method 97.9 F 65 17 135/60 H 93 Room Air 06/21/23 04:12 06/21/23 06:50 06/21/23 06:50 06/21/23 04:12 06/21/23 06:50 06/21/23 06:50 Oxygen Delivery Method Room Air Weight: 61.4 kg Body Mass Index (BMI) 24.0 Lab / Micro Data 06/21/23 05:50 06/21/23 05:50 Labs: Laboratory Results - last 24 hr 06/20/23 16:35: WBC 9.3, RBC 5.03, Hgb 12.5, Hct 40.1, MCV 79.7 L, MCH 24.9 L, MCHC 31.2 L, RDW Std Deviation 44.6 H, RDW Coeff of Finesse 15.6 H, Plt Count 190, MPV 11.6, Immature Gran % (Auto) 0.300, Neut % (Auto) 64.3, Lymph % (Auto) 24.7, Armstrong % (Auto) 9.5, Eos % (Auto) 0.8, Baso % (Auto) 0.4, Absolute Neuts (auto) 6.0, Absolute Lymphs (auto) 2.29, Nucleated RBC % 0, PT 13.5, INR 1.0, APTT 25.8, Sodium 139, Potassium 4.0, Chloride 106, Carbon Dioxide 26.0, Anion Gap 7, BUN 28 H, Creatinine 1.13 H, Estim Creat Clear Calc 31.75, Est GFR (MDRD) Af Amer 59 L, Est GFR (MDRD) Non-Af 49 L, BUN/Creatinine Ratio 24.8 H, Glucose 119 H, Calcium 9.6, Magnesium 1.8, Troponin I High Sens 11, Folate 19.70 06/20/23 17:57: Urine Color Yellow, Urine Clarity Clear, Urine pH 8.0, Ur Specif ic [place] 1.015, Urine Protein 15 H, Urine Glucose (UA) Normal, Urine Ketones 50 H, Urine Occult Blood Negative, Urine Nitrite Negative, Urine Bilirubin Negative, Urine Urobilinogen Normal, Ur Leukocyte Esterase 25 H, Urine RBC 0 SEEN, Urine WBC 0-5 SEEN, Ur Squamous Epith Cells 0-5 SEEN, Urine Bacteria 0 SEEN, Urine Mucus 0 SEEN, Urine Opiates Screen NEGATIVE, Urine Methadone Screen NEGATIVE, Ur Barbiturates Screen NEGATIVE, Ur Phencyclidine Scrn NEGATIVE, Ur Amphetamines Screen NEGATIVE, MDMA (Ecstasy) Screen NEGATIVE, U Benzodiazepines Scrn NEGATIVE, Urine Cocaine Screen NEGATIVE, U Cannabinoids Screen NEGATIVE, Ur Drug Screen Comment 06/20/23 21:05: Vitamin B12 271, Ethyl Alcohol < 3.0 06/20/23 23:48: POC Glucose 98 06/21/23 03:58: POC Glucose 104 06/21/23 05:50: WBC 8.1, RBC 4.48, Hgb 11.1 L, Hct 36.0 L, MCV 80.4 L, MCH 24.8 L, MCHC 30.8 L, RDW Std Deviation 44.9 H, RDW Coeff of Finesse 15.6 H, Plt Count 167, MPV 11.4, Immature Gran % (Auto) 0.200, Neut % (Auto) 57.9, Lymph % (Auto) 29.4, Armstrong % (Auto) 10.3 H, Eos % (Auto) 1.7, Baso % (Auto) 0.5, Absolute Neuts (auto) 4.7, Absolute Lymphs (auto) 2.37, Nucleated RBC % 0, Sodium 140, Potassium 3.6, Chloride 108 H, Carbon Dioxide 24.0, Anion Gap 8, BUN 25 H, Creatinine 1.01, Estim Creat Clear Calc 35.52, Est GFR (MDRD) Af Amer 67, Est GFR (MDRD) Non-Af 56 L, BUN/Creatinine Ratio 24.8 H, Glucose 109 H, Calcium 8.5, Phosphorus 3.5, Total Bilirubin 1.60 H, AST 24, ALT 21, Alkaline Phosphatase 71, Total Protein 6.3 L, Albumin 3.3, Globulin 3.0, Albumin/Globulin Ratio 1.1, Triglycerides 124, Cholesterol 137, LDL Cholesterol 70, VLDL Cholesterol 25, HDL Cholesterol 42, TSH 1.59 06/21/23 06:44: POC Glucose 109 H Radiography Diagnostic Testing: Radiology Impression Brain CT 06/20/23 16:40 IMPRESSION: Age-related changes. No acute intracranial pathology. Electronically Signed: Yrn Orellana DO at 16:57 EST , ADDENDUM: 06/20/23 1717 IMPRESSION: Age-related changes. No acute intracranial pathology. N.B. : The above Results were Read Back by Yrn Orellana DO to Jesus Hilario MD, and understanding confirmed on 06/20/2023 17:11:05 (ET). Electronically Signed: Yrn Orellana DO at 16:57 EST , Head/Neck CTA 06/20/23 16:40 IMPRESSION: Atherosclerotic calcifications at the carotid bulbs, right more than left. Negative CTA Brain. Electronically Signed: Yrn Orellana DO at 17:19 EST , ADDENDUM: 06/20/23 1727 IMPRESSION: Atherosclerotic calcifications at the carotid bulbs, right more than left. Negative CTA Brain. N.B. : The above Results were Read Back by Yrn Orellana DO to Jesus Hilario MD, and understanding confirmed on 06/20/2023 17:20:07 (ET). Electronically Signed: Yrn Orellana DO at 17:19 EST , Chest X-Ray 06/20/23 17:20 IMPRESSION: No radiographic evidence of acute cardiopulmonary disease. Electronically Signed: Yrn Orellana DO at 17:39 EST , Physical Exam Narrative GENERAL: cooperative HEENT: Atraumatic; normocephalic EYES; Anicteric, Normal Conjunctiva NECK; supple, normal thyroid, RESPIRATORY: Diminished to auscultation CARDIOVASCULAR: Regular S1 S2, GI: soft, normoactive bowel sounds, : No Renal angle tenderness; EXTREMITIES: No edema, no clubbing, MUSCULOSKELETAL: no muscle wasting NEURO: Awake; no lateralizing signs. SKIN: No Rash PSYCH; Flat affect Assessment & Plan Assessment/Plan (1) Acute alteration in mental status: (2) History of dementia: (3) Mild dehydration: PLAN: Plan 1. Acute delirium with alteration in mental status with persistent confusion since at least 3 PM this afternoon in the setting of chronic mild dementia - Admit to CDU under observation status. Give empiric aspirin and statin. Allow for permissive hypertension until CVA definitively ruled out on MRI. Check MRI of the brain to assess for acute infarct or inflammation that would explain her symptomatology. Check carotid Doppler to evaluate for stenosis. Check echoc ardiogram to evaluate left ventricular ejection fraction. 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 Check TSH, B12 and folate levels to evaluate for potential nutritional deficiencies that may clarify potential ways to improve her clinical condition. Check urine drug screen including blood alcohol concentration is pending at this time to fully evaluate for potential reversible causes of confusion. Finally, we will consult [facility] to evaluate this patient in the a.m. for further recommendations with help appreciated in advance. 2. Mild dehydration present on admission with serum creatinine of 1.13 mg/dL and BUN of 28 mg/dL - Volume resuscitate and then recheck BMP in the a.m. to ensure correction. 3. 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 4. Depression; since the of her approximately 2 years ago compounding #1 - #3 - Resume her antidepressant regimen as previous. 5. Essential hypertension - Hold scheduled antihypertensives to allow for permissive hypertension until CVA is definitively ruled out on MRI. 5. Hyperlipidemia - Continue atorvastatin as previous and check lipid profile this admission in light of #1. 6. Diabetes mellitus type 2; of unknown control - ADA diet. Fingerstick blood sugars before every meal and at bedtime plus low intensity sliding scale insulin. Check hemoglobin A1c to objectively evaluate quality of diabetic control. 7. History of migraine headaches - Stable with no evidence of recurrence at this time. 8. History of pancreatitis - Stable. 9. History of bladder cancer - Noted. 10. Osteoarthritis; status post left total knee replacement - Stable. 11. DVT prophylaxis - Lovenox 40 mg subcu daily plus SCDs. Total time: Approximately 70 minutes.
[2023-06-21] MEDS: Aspirin 81 MG TAB.CHEW 162 MG PO (12:15)
[2023-06-21] MEDS: Magnesium Chloride 64 MG Delay Rel.Tablet PO (12:15)
[2023-06-21] MEDS: Fluoxetine HCl 40 MG CAPSULE PO (12:15)
[2023-06-21] MEDS: buPROPion (XL) 150 MG TABLET.XL PO (12:15)
[2023-06-21] MEDS: Meloxicam 15 MG Tablet PO (12:15)
[2023-06-21] MEDS: Calcium Carb/Vitamin D 1 TABLET Tablet PO (12:15)
[2023-06-21] MEDS: Enoxaparin 40 MG/0.4 ML Syringe SC (12:16)
[2023-06-21] MEDS: 0.9% Normal Saline (1000mL) 1,000 ML 100 ML IV (12:30)
[2023-06-21 12:41] LABS: Bedside Glucose 191 mg/dL (74-106)
--- NOTE | 2023-06-21 13:00 | PCM.DC.SUM ---
Providers Date of Admission: 06/20/23 Date of Discharge: 06/21/23 Primary Care Physician: Dr. Dhiraj Julian MD Reason For Visit: ALTERED MENTAL STATUS WITH POSSIBLE TIA VS CVA Diagnosis Discharge Diagnosis (1) Acute alteration in mental status: Status: Acute Code(s): R41.82 - Altered mental status, unspecified (2) History of dementia: Status: Acute Code(s): Z86.59 - Personal history of other mental and behavioral disorders (3) Mild dehydration: Status: Acute Code(s): E86.0 - Dehydration Medications at Discharge Home Medications atorvastatin 40 mg tablet 40 mg PO QHS cholestrol 02/14/14 tolterodine 2 mg capsule,extended release 24 hr (Detrol LA) 2 mg PO QHS overactive bladder 02/14/14 magnesium 250 mg tablet 250 mg PO DAILY Supplement 11/14/20 valsartan 320 mg tablet 320 mg PO DAILY Cholesterol 04/10/21 amlodipine 10 mg tablet 10 mg PO DAILY bp 05/02/21 bupropion HCl 150 mg 24 hr tablet, extended release 150 mg PO DAILY mood 05/02/21 fluoxetine 40 mg capsule 40 mg PO DAILY depression 05/02/21 hydrochlorothiazide 12.5 mg capsule 12.5 mg PO DAILY bp/fluid 05/02/21 metformin 1,000 mg tablet 1,000 mg PO BID dm 05/02/21 calcium carbonate 600 mg-vitamin D3 5 mcg (200 unit) tablet 1 tab PO DAILY Supplement 03/21/22 Lactobacillus acidophilus 20 billion cell capsule (Florajen Acidophilus) 20,000 mmu cells PO DAILY 01/25/23 clobetasol 0.05 % topical ointment 1 applic topical BID PRN rash 01/25/23 hyoscyamine sulfate 0.125 mg sublingual tablet 0.125 mg sublingual Q4H PRN dyspepsia 01/25/23 linagliptin 5 mg tablet 5 mg PO DAILY 01/25/23 meclizine 12.5 mg tablet 12.5 mg PO Q6H PRN dizziness 01/25/23 meloxicam 15 mg tablet 15 mg PO DAILY 01/25/23 nystatin 100,000 unit/gram topical powder 1 applic topical BID PRN rash 02/13/23 ondansetron 4 mg disintegrating tablet 4 mg PO Q6H PRN nausea and vomiting 08/02/23 aspirin 81 mg chewable tablet 162 mg (2 x 81 mg) PO DAILYCM #30 tabs 06/21/23 Hospital Course Summary of Care Provided Minutes Spent on Discharge: 35 Hospital Course: Patient is an 83-year-old lady admitted with transient confusion 1. Transient global amnesia ? Patient admitted to monitored bed underwent subsequent evaluation with an MRI which came back negative. Patient's symptoms did resolve. Patient was on gabapentin and it was held during her hospital stay and to continue on discharge 2. Mild dehydration ? 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 Diabetes mellitus type II -patient's oral hypoglycemics held. Placed on long acting insulin, Accu-Cheks a.c. and at bedtime and covered with sliding scale insulin. Patient will on both metformin as well as Amaryl at home blood glucose remained stable without her antihyperglycemic agents. Amaryl subsequently discontinued on discharge 5. Hypertension - Blood pressure controlled, home medications continued with dose adjustment as needed 6. Dyslipidemia -Patient is on statin therapy, continued at home dose 7. Mild cognitive impairment ?Patient is on Aricept 8. History of bladder cancer ? Status post TURP remains in remission 9. DVT prophylaxis - On enoxaparin Physical Exam Narrative GENERAL: cooperative HEENT: Atraumatic; normocephalic EYES; Anicteric, Normal Conjunctiva NECK; supple, normal thyroid, RESPIRATORY: Diminished to auscultation CARDIOVASCULAR: Regular S1 S2, GI: soft, normoactive bowel sounds, : No Renal angle tenderness; EXTREMITIES: No edema, no clubbing, MUSCULOSKELETAL: no muscle wasting NEURO: Awake; no lateralizing signs. SKIN: No Rash PSYCH; Flat affect Weight / BMI Weight Weight: 61.4 kg Body Mass Index (BMI) 24.0 ABG / Lab / Microbiology Data 06/21/23 05:50 06/21/23 05:50 Laboratory: Laboratory Results - last 24 hr 06/20/23 16:35: WBC 9.3, RBC 5.03, Hgb 12.5, Hct 40.1, MCV 79.7 L, MCH 24.9 L, MCHC 31.2 L, RDW Std Deviation 44.6 H, RDW Coeff of Finesse 15.6 H, Plt Count 190, MPV 11.6, Immature Gran % (Auto) 0.300, Neut % (Auto) 64.3, Lymph % (Auto) 24.7, [place] % (Auto) 9.5, Eos % (Auto) 0.8, Baso % (Auto) 0.4, Absolute Neuts (auto) 6.0, Absolute Lymphs (auto) 2.29, Nucleated RBC % 0, PT 13.5, INR 1.0, APTT 25.8, Sodium 139, Potassium 4.0, Chloride 106, Carbon Dioxide 26.0, Anion Gap 7, BUN 28 H, Creatinine 1.13 H, Estim Creat Clear Calc 31.75, Est GFR (MDRD) Af Amer 59 L, Est GFR (MDRD) Non-Af 49 L, BUN/Creatinine Ratio 24.8 H, Glucose 119 H, Calcium 9.6, Magnesium 1.8, Troponin I High Sens 11, Folate 19.70 06/20/23 17:57: Urine Color Yellow, Urine Clarity Clear, Urine pH 8.0, Ur Specific [place] 1.015, Urine Protein 15 H, Urine Glucose (UA) Normal, Urine Ketones 50 H, Urine Occult Blood Negative, Urine Nitrite Negative, Urine Bilirubin Negative, Urine Urobilinogen Normal, Ur Leukocyte Esterase 25 H, Urine RBC 0 SEEN, Urine WBC 0-5 SEEN, Ur Squamous Epith Cells 0-5 SEEN, Urine Bacteria 0 SEEN, Urine Mucus 0 SEEN, Urine Opiates Screen NEGATIVE, Urine Methadone Screen NEGATIVE, Ur Barbiturates Screen NEGATIVE, Ur Phencyclidine Scrn NEGATIVE, Ur Amphetamines Screen NEGATIVE, MDMA (Ecstasy) Screen NEGATIVE, U Benzodiazepines Scrn NEGATIVE, Urine Cocaine Screen NEGATIVE, U Cannabinoids Screen NEGATIVE, Ur Drug Screen Comment 06/20/23 21:05: Vitamin B12 271, Ethyl Alcohol < 3.0 06/20/23 23:48: POC Glucose 98 06/21/23 03:58: POC Glucose 104 06/21/23 05:50: WBC 8.1, RBC 4.48, Hgb 11.1 L, Hct 36.0 L, MCV 80.4 L, MCH 24.8 L, MCHC 30.8 L, RDW Std Deviation 44.9 H, RDW Coeff of Finesse 15.6 H, Plt Count 167, MPV 11.4, Immature Gran % (Auto) 0.200, Neut % (Auto) 57.9, Lymph % (Auto) 29.4, [place] % (Auto) 10.3 H, Eos % (Auto) 1.7, Baso % (Auto) 0.5, Absolute Neuts (auto) 4.7, Absolute Lymphs (auto) 2.37, Nucleated RBC % 0, Sodium 140, Potassium 3.6, Chloride 108 H, Carbon Dioxide 24.0, Anion Gap 8, BUN 25 H, Creatinine 1.01, Estim Creat Clear Calc 35.52, Est GFR (MDRD) Af Amer 67, Est GFR (MDRD) Non-Af 56 L, BUN/Creatinine Ratio 24.8 H, Glucose 109 H, Calcium 8.5, Phosphorus 3.5, Total Bilirubin 1.60 H, AST 24, ALT 21, Alkaline Phosphatase 71, Total Protein 6.3 L, Albumin 3.3, Globulin 3.0, Albumin/Globulin Ratio 1.1, Triglycerides 124, Cholesterol 137, LDL Cholesterol 70, VLDL Cholesterol 25, HDL Cholesterol 42, TSH 1.59 06/21/23 06:44: POC Glucose 109 H 06/21/23 12:16: POC Glucose 191 H Radiography Diagnostic Testing: Radiology Impression Brain CT 06/20/23 16:40 IMPRESSION: Age-related changes. No acute intracranial pathology. Electronically Signed: Yrn Orellana DO at 16:57 EST , ADDENDUM: 06/20/23 1717 IMPRESSION: Age-related changes. No acute intracranial pathology. N.B. : The above Results were Read Back by Yrn Orellana DO to Jesus Hilario MD, and understanding confirmed on 06/20/2023 17:11:05 (ET). Electronically Signed: Yrn Orellana DO at 16:57 EST , Head/Neck CTA 06/20/23 16:40 IMPRESSION: Atherosclerotic calcifications at the carotid bulbs, right more than left. Negative CTA Brain. Electronically Signed: Yrn Orellana DO at 17:19 EST , ADDENDUM: 06/20/23 1727 IMPRESSION: Atherosclerotic calcifications at the carotid bulbs, right more than left. Negative CTA Brain. N.B. : The above Results were Read Back by Yrn Orellana DO to Jesus Hilario MD, and understanding confirmed on 06/20/2023 17:20:07 (ET). Electronically Signed: Yrn Orellana DO at 17:19 EST , Chest X-Ray 06/20/23 17:20 IMPRESSION: No radiographic evidence of acute cardiopulmonary disease. Electronically Signed: Yrn Orellana DO at 17:39 EST , Brain MRI 06/20/23 21:46 IMPRESSION: No evidence for acute infarct. Chronic involutional and white matter changes. Electronically Signed: Larissa Castillo MD at 12:09 EST , D/C Instructions Discharge Diet: 1800 Calorie Control Diet Discharge Activity: Return to Normal Activity Call your doctor if you observe: Fever of 101 or Higher, Shortness of breath, Fainting spells and Chest pain Meaningful Use Info Meaningful Use Diagnoses (Choose all that apply): None applicable Discharge Plan Admission Admit Date/Time: 06/20/23 21:23 Attending Provider: Surjit Johns Primary Care Provider: Dhiraj Julian Consulting Providers: Lars Pelletier Discharge Orders/Prescriptions Prescriptions: New aspirin 81 mg Tablet,Chewable 162 mg PO DAILYCM Qty: 30 0RF Continued valsartan 320 mg tablet 320 mg PO DAILY Patient Comments: TAKE 1 TABLET BY MOUTH EVERY DAY meloxicam 15 mg tablet 15 mg PO DAILY Patient Comments: TAKE 1 TABLET BY MOUTH ONCE DAILY WITH FOOD Florajen Acidophilus 20 billion cell capsule 20,000 mmu cells PO DAILY Patient Comments: TAKE 1 CAPSULE BY MOUTH ONCE DAILY meclizine 12.5 mg tablet 12.5 mg PO Q6H PRN (Reason: dizziness) clobetasol 0.05 % ointment 1 applic topical BID PRN (Reason: rash) hyoscyamine sulfate 0.125 mg tablet, sublingual 0.125 mg sublingual Q4H PRN (Reason: dyspepsia) linagliptin 5 mg tablet 5 mg PO DAILY nystatin 100,000 unit/gram powder 1 applic topical BID PRN (Reason: rash) ondansetron 4 mg tablet,disintegrating 4 mg PO Q6H PRN (Reason: nausea and vomiting) tolterodine [Detrol LA] 2 MG capsule,extended release 24hr 2 mg PO QHS Patient Comments: URINARY MEDICATION atorvastatin 40 MG tablet 40 mg PO QHS Patient Comments: CHOLESTEROL magnesium 250 mg Tablet 250 mg PO DAILY fluoxetine 40 mg capsule 40 mg PO DAILY amlodipine 10 mg tablet 10 mg PO DAILY metformin 1,000 mg tablet 1,000 mg PO BID hydrochlorothiazide 12.5 mg capsule 12.5 mg PO DAILY bupropion HCl 150 mg tablet extended release 24 hr 150 mg PO DAILY calcium carbonate-vitamin D3 600 mg-5 mcg (200 unit) Tablet 1 tab PO DAILY Discontinued glimepiride 1 mg tablet 1 mg PO QAM Rx Instructions: administer with breakfast oxycodone-acetaminophen 2.5-325 mg tablet 1 tab PO Q6H PRN (Reason: pain) Patient Comments: TAKE 1 TABLET BY MOUTH EVERY 6 HOURS NEEDED FOR PAIN FOR 10 DAYS INS WILL NOT COVER gabapentin 300 mg capsule 600 mg PO QHS Referrals / Follow Up: Dhiraj Julian MD [Primary Care Provider] - Within 1 Week Disposition Disposition (needs filled in before D/C Order can be placed): Home, Self Care Charges/Coding Visit Charges Inpatient E&M: 88902 Disch Hosp >30min
--- NOTE | 2023-06-21 13:50 | CASEMGMT ---
Patient has order for discharge. RN CM in to discuss needs at discharge, no family at bedside, patient has history of dementia. RN CM called daughter Amara to discuss needs. Daughter concerned for safety at home as patient was found wondering from home. RN CM discussed different levels of care and patient's observation status. Amara states she will be in at 3:30 to discuss options for discharge. RN CM updated social work regarding safety at home and possible need for placement. CM will continue to follow this patient and plan for a safe discharge.
--- NOTE | 2023-06-21 16:21 | CASEMGMT ---
Addendum entered by Alexia Granados 06/21/23 17:00: Violette from [facility] called and the respite bed will not be available until Saturday. JANELLE notified physician, RN, and patient's family. JANELLE will follow up with [facility] Saturday. Alexia KAERNEY Original Note: JANELLE met with patient's daughter Amara and patient. Introduced self and role at [facility]. Amara expressed concern that patient is not safe to be home alone. Family is not able to stay with patient and patient cannot stay with family as they have prior obligations and work. JANELLE provided Amara with a list of private duty agencies and assisted living facilities. Amara said they will work on getting patient into assisted living, but where does patient go in the meantime. Amara and patient are aware halfway would not be covered as patient is Medicare observation status. JANELLE mentioned that several facilities offer respite which may be cheaper than going to a halfway private pay. Amara asked if JANELLE could check with [facility]. JANELLE called [facility] and spoke with Marysol in admissions. JANELLE explained the situation. [facility]sol said they do offer respite, but they do not have anything available in their memory care unit. JANELLE spoke with Amara letting her know this information. Amara asked JANELLE to check with [facility]. JANELLE spoke with Violette at [facility] and they do have an opening in their memory care unit for respite. It would be $275 per day and would want 2 weeks up front. Respite is no more than 30 days. JANELLE explained that would be more than sufficient for family as they are looking for assisted living for patient. Violette was not sure when the room would be cleaned. Violette will check on this and get back to JANELLE. Violette said it could be Saturday. JANELLE asked Violette if it could be the weekend. She will check on it. JANELLE spoke with Amara and let her know this information. JANELLE also updated physician. Awaiting return call from [facility]. Alexia KEARNEY
[2023-06-21 16:55] LABS: Bedside Glucose 157 mg/dL (74-106)
--- NOTE | 2023-06-21 17:10 | CASEMGMT ---
Met with patient and her family to complete CRAWFORD form. CRAWFORD form explained to all who voiced understanding. Patient requested that her daughter sign form. Original form placed in pt?s chart and copy provided to?patient. Hattie Mayen, Discharge Planning Asst
[2023-06-21] MEDS: Atorvastatin Calcium 40 MG Tablet PO (21:52)
[2023-06-21] MEDS: Tolterodine Tartrate 2 MG CAP.SA PO (21:52)
[2023-06-21 22:19] LABS: Bedside Glucose 153 mg/dL (74-106)
[2023-06-22 00:21] VITALS: BMI 24.0
[2023-06-22 03:42] LABS: Bedside Glucose 106 mg/dL (74-106)
[2023-06-22 03:51] VITALS: BP 143/64; PULSE 60; RESP 14; TEMP 36.9; O2SAT 96
[2023-06-22 06:00] VITALS: BMI 24.0
[2023-06-22 06:23] LABS: Bedside Glucose 120 mg/dL (74-106)
--- NOTE | 2023-06-22 08:26 | PN.HOSP_ITS ---
Reason for Visit Reason for Visit: Diagnoses Dehydration (06/20/23) Altered mental status, unspecified (06/20/23) Personal history of other mental and behavioral disorders (06/20/23) Subjective Subjective LATE entry note for 06/21/2023 Patient admitted with altered mental status acute CVA was ruled out plan was for patient to be discharged home however patient's family requested for transfer to nursing home facility Objective Data Objective Data Vital Signs: Vital Signs Temp Pulse Resp BP Pulse Ox O2 Del Method 98.4 F 60 14 143/64 H 96 Room Air 06/22/23 03:51 06/22/23 03:51 06/22/23 03:51 06/22/23 03:51 06/22/23 03:51 06/22/23 03:51 Oxygen Delivery Method Room Air Weight: 61.4 kg Body Mass Index (BMI) 24.0 Intake & Output: Intake and Output for Last 24 Hours 06/20/23 06/21/23 06/22/23 23:59 23:59 23:59 Intake Total 2288.33 / 2288.33 100 / 100 Output Total 2 / 2 Balance 2286.33 / 2286.33 100 / 100 Lab / Micro Data 06/22/23 09:08 06/22/23 09:08 Labs: Laboratory Results - last 24 hr 06/21/23 12:16: POC Glucose 191 H 06/21/23 16:33: POC Glucose 157 H 06/21/23 21:54: POC Glucose 153 H 06/22/23 03:23: POC Glucose 106 06/22/23 06:04: POC Glucose 120 H Radiography Diagnostic Testing: Radiology Impression Brain MRI 06/20/23 21:46 IMPRESSION: No evidence for acute infarct. Chronic involutional and white matter changes. Electronically Signed: Larissa Csatillo MD at 12:09 EST , Echocardiogram 06/20/23 21:46 Interpretation Summary Mild concentric left ventricular hypertrophy. The left ventricular ejection fraction is 65 %. Stage 2 diastolic dysfunction. Severely dilated left atrium. Filamentous structure noted in the left atrium. Cannot rule out left atrial mass. Recommend AGA or cardiac MRI for further evaluation. The right atrium is mildly enlarged. Mild to moderate (1-2+) tricuspid valve insufficiency. Right ventricular systolic pressure estimated to be 40 mmHg. Aortic sclerosis, no stenosis. Trivial pericardial effusion. Ordering Physician: Surjit Guerrero Referring Physician: KATHIE OBRIEN Performed By: Luis A Farrell RCS Physical Exam Narrative GENERAL: cooperative HEENT: Atraumatic; normocephalic EYES; Anicteric, Normal Conjunctiva NECK; supple, normal thyroid, RESPIRATORY: Diminished to auscultation CARDIOVASCULAR: Regular S1 S2, GI: soft, normoactive bowel sounds, : No Renal angle tenderness; EXTREMITIES: No edema, no clubbing, MUSCULOSKELETAL: no muscle wasting NEURO: Awake; no lateralizing signs. SKIN: No Rash PSYCH; Flat affect Assessment & Plan Assessment/Plan (1) Acute alteration in mental status: (2) History of dementia: (3) Mild dehydration: PLAN: Plan Patient is an 83-year-old lady admitted with transient confusion 1. Transient global amnesia ? Patient admitted to monitored bed underwent subsequent evaluation with an MRI which came back negative. Patient symptoms resolved patient is on gabapentin discontinued 2. Mild dehydration ? 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 Diabetes mellitus type II -patient's oral hypoglycemics held. Placed on long acting insulin, Accu-Cheks a.c. and at bedtime and covered with sliding scale insulin. Patient will on both metformin as well as Amaryl at home blood glucose remained stable without her antihyperglycemic agents. Amaryl subsequently discontinued on discharge 5. Hypertension - Blood pressure controlled, home medications continued with dose adjustment as needed 6. Dyslipidemia -Patient is on statin therapy, continued at home dose 7. Mild cognitive impairment ?Patient is on Aricept 8. History of bladder cancer ? Status post TURP remains in remission 9. Physical deconditioning - Requested for PT OT eval and social media marketing analyst to assist with discharge planning 10. DVT prophylaxis - On enoxaparin Time spent in the patient's overall evaluation,decision-making process, review of diagnostic data, adjustment of management, discussion with other providers, nursing nursing and ancillary staff involved in patient's care documentation, 50 Minutes Charges/Coding Visit Charges Inpatient E&M: 10729 [facility] Hosp L3
[2023-06-22 09:29] LABS: Absolute Lymphocyte Count 2.02 X10^3/uL (0.83-4.51); Absolute Neutrophil Count 4.6 X10^3/uL (2.0-7.7); Basophil# 0.03 X10^3/uL; Basophil% 0.4 % (0-1); Eosinophil# 0.14 X10^3/uL; Eosinophils% 1.8 % (0-5); Hematocrit 38.4 % (37-47); Hemoglobin 11.8 g/dL (12.0-15.0); Lymphocyte # 2.02 X10^3/ul (0.83-4.51); Lymphocyte % 26.3 % (19-41); Mean Corp Hgb Conc 30.7 g/dL (32-36); Mean Corpuscular Hgb 24.6 pg (27.0-32.0); Mean Corpuscular Volume 80.2 fL (81-99); Mean Platelet Vol. 11.3 fl (6.2-12.0); Monocyte# 0.83 X10^3/uL; Monocyte% 10.8 % (0-10); NRBC Flagged by Analyzer 0 % (0-5); Neutrophil # 4.64 X10^3/uL (2.7-7.7); Neutrophil % 60.4 % (47-70); Platelet Count 162 K/mm3 (150-450); RBC Distribution Width CV 15.4 % (11.6-14.6); RBC Distribution Width SD 44.9 fl (35.1-43.9); Red Blood Count 4.79 M/mm3 (4.2-5.4); White Blood Count 7.7 K/mm3 (4.4-11.0)
[2023-06-22 09:49] LABS: Anion Gap 2 (5-15); BUN 21 mg/dL (7-18); BUN/Creat Ratio 20.6 RATIO (10-20); Calcium,Total 8.9 mg/dL (8.5-10.1); Chloride 107 mmol/L (98-107); Creatinine, Serum 1.02 mg/dL (0.55-1.02); EST Glomerular Filtration Rate 55 mL/min (>60); Est Glom Filt Rate - Afr Amer 67 mL/min (>60); Estimated Creatinine Clearance 35.18 ml/min; Glucose 130 mg/dL (74-106); Potassium 3.9 mmol/L (3.5-5.1); Sodium Level 138 mmol/L (136-145)
[2023-06-22 09:50] VITALS: BP 148/92; PULSE 55; RESP 16; TEMP 36.5; O2SAT 97
[2023-06-22] MEDS: Meloxicam 15 MG Tablet PO (10:14)
[2023-06-22] MEDS: buPROPion (XL) 150 MG TABLET.XL PO (10:14)
[2023-06-22] MEDS: Fluoxetine HCl 40 MG CAPSULE PO (10:14)
[2023-06-22] MEDS: Enoxaparin 40 MG/0.4 ML Syringe SC (10:14)
[2023-06-22] MEDS: Magnesium Chloride 64 MG Delay Rel.Tablet PO (10:14)
[2023-06-22] MEDS: Calcium Carb/Vitamin D 1 TABLET Tablet PO (10:14)
[2023-06-22] MEDS: Aspirin 81 MG TAB.CHEW 162 MG PO (10:14)
[2023-06-22 10:55] LABS: Bedside Glucose 113 mg/dL (74-106)
--- NOTE | 2023-06-22 11:14 | PCM.PN.HOSP ---
Reason for Visit Reason for Visit: Diagnoses Dehydration (06/20/23) Altered mental status, unspecified (06/20/23) Personal history of other mental and behavioral disorders (06/20/23) Objective Data Objective Data Vital Signs: Vital Signs Temp Pulse Resp BP Pulse Ox O2 Del Method 97.7 F L 55 L 16 148/92 H 97 Room Air 06/22/23 09:50 06/22/23 09:50 06/22/23 09:50 06/22/23 09:50 06/22/23 09:50 06/22/23 10:05 Oxygen Delivery Method Room Air Weight: 61.4 kg Body Mass Index (BMI) 24.0 Intake & Output: Intake and Output for Last 24 Hours 06/20/23 06/21/23 06/22/23 23:59 23:59 23:59 Intake Total 2288.33 / 2288.33 100 / 100 Output Total 2 / 2 Balance 2286.33 / 2286.33 100 / 100 Lab / Micro Data 06/22/23 09:08 06/22/23 09:08 Labs: Laboratory Results - last 24 hr 06/21/23 12:16: POC Glucose 191 H 06/21/23 16:33: POC Glucose 157 H 06/21/23 21:54: POC Glucose 153 H 06/22/23 03:23: POC Glucose 106 06/22/23 06:04: POC Glucose 120 H 06/22/23 09:08: WBC 7.7, RBC 4.79, Hgb 11.8 L, Hct 38.4, MCV 80.2 L, MCH 24.6 L, MCHC 30.7 L, RDW Std Deviation 44.9 H, RDW Coeff of Finesse 15.4 H, Plt Count 162, MPV 11.3, Immature Gran % (Auto) 0.300, Neut % (Auto) 60.4, Lymph % (Auto) 26.3, [place] % (Auto) 10.8 H, Eos % (Auto) 1.8, Baso % (Auto) 0.4, Absolute Neuts (auto) 4.6, Absolute Lymphs (auto) 2.02, Nucleated RBC % 0, Sodium 138, Potassium 3.9, Chloride 107, Carbon Dioxide 29.0, Anion Gap 2 L, BUN 21 H, Creatinine 1.02, Estim Creat Clear Calc 35.18, Est GFR (MDRD) Af Amer 67, Est GFR (MDRD) Non-Af 55 L, BUN/Creatinine Ratio 20.6 H, Glucose 130 H, Calcium 8.9 06/22/23 10:25: POC Glucose 113 H Radiography Diagnostic Testing: Radiology Impression Carotid Duplex 06/20/23 21:28 Interpretation Summary 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 Less than 50% stenosis left external carotid Patent, antegrade vertebrals bilaterally Slight change on right from 03/12/19 Ordering Physician: Surjit Guerrero Referring Physician: Dhiraj Obrien Performed By: Rina Cazares, RDCS, RVT Brain MRI 06/20/23 21:46 IMPRESSION: No evidence for acute infarct. Chronic involutional and white matter changes. Electronically Signed: Larissa Castillo MD at 12:09 EST Reading Location ID and State: [facility] / [place] Tel , Service support , Echocardiogram 06/20/23 21:46 Interpretation Summary Mild concentric left ventricular hypertrophy. The left ventricular ejection fraction is 65 %. Stage 2 diastolic dysfunction. Severely dilated left atrium. Filamentous structure noted in the left atrium. Cannot rule out left atrial mass. Recommend AGA or cardiac MRI for further evaluation. The right atrium is mildly enlarged. Mild to moderate (1-2+) tricuspid valve insufficiency. Right ventricular systolic pressure estimated to be 40 mmHg. Aortic sclerosis, no stenosis. Trivial pericardial effusion. Ordering Physician: Surjit Guerrero Referring Physician: DHIRAJ OBRIEN Performed By: Luis A Farrell RCS Charges/Coding Visit Charges Inpatient E&M: 02738 Subs Hosp L3
[2023-06-22 11:20] VITALS: O2SAT 95
[2023-06-22 13:30] VITALS: BMI 24.0
[2023-06-22 14:46] VITALS: BP 129/116; PULSE 67; RESP 16; TEMP 37.1; O2SAT 97
[2023-06-22 17:02] LABS: Bedside Glucose 128 mg/dL (74-106)
[2023-06-22] MEDS: Atorvastatin Calcium 40 MG Tablet PO (20:25)
[2023-06-22] MEDS: Tolterodine Tartrate 2 MG CAP.SA PO (20:25)
[2023-06-22 20:45] VITALS: BP 158/74; PULSE 63; RESP 18; TEMP 37.2; O2SAT 97
[2023-06-22 21:02] LABS: Bedside Glucose 165 mg/dL (74-106)
[2023-06-22] MEDS: Insulin Lispro 100 UNIT/ML INSULN.PEN SC (21:05)
--- NOTE | 2023-06-22 23:01 | PCA ---
Assisted in complete bed change, gown change, emptied trash cans, and linens bins
[2023-06-23 01:07] VITALS: BMI 24.0
[2023-06-23 03:05] VITALS: BP 135/84; PULSE 58; RESP 18; TEMP 36.8; O2SAT 96
[2023-06-23 03:43] LABS: Bedside Glucose 137 mg/dL (74-106)
[2023-06-23 06:00] VITALS: BMI 23.8
[2023-06-23 06:16] LABS: Bedside Glucose 138 mg/dL (74-106)
[2023-06-23 07:29] LABS: Absolute Lymphocyte Count 2.43 X10^3/uL (0.83-4.51); Absolute Neutrophil Count 4.5 X10^3/uL (2.0-7.7); Basophil# 0.03 X10^3/uL; Basophil% 0.4 % (0-1); Eosinophil# 0.16 X10^3/uL; Hemoglobin 11.7 g/dL (12.0-15.0); Lymphocyte # 2.43 X10^3/ul (0.83-4.51); Lymphocyte % 29.8 % (19-41); Mean Corp Hgb Conc 30.8 g/dL (32-36); Mean Corpuscular Hgb 24.7 pg (27.0-32.0); Mean Corpuscular Volume 80.2 fL (81-99); Mean Platelet Vol. 11.1 fl (6.2-12.0); Monocyte% 12.3 % (0-10); NRBC Flagged by Analyzer 0 % (0-5); Neutrophil # 4.52 X10^3/uL (2.7-7.7); Neutrophil % 55.3 % (47-70); Platelet Count 158 K/mm3 (150-450); RBC Distribution Width CV 15.2 % (11.6-14.6); RBC Distribution Width SD 44.1 fl (35.1-43.9); Red Blood Count 4.74 M/mm3 (4.2-5.4); White Blood Count 8.2 K/mm3 (4.4-11.0)
[2023-06-23 07:50] VITALS: O2SAT 95
[2023-06-23 07:53] LABS: Anion Gap 5 (5-15); BUN 23 mg/dL (7-18); BUN/Creat Ratio 22.8 RATIO (10-20); Chloride 107 mmol/L (98-107); Creatinine, Serum 1.01 mg/dL (0.55-1.02); EST Glomerular Filtration Rate 56 mL/min (>60); Est Glom Filt Rate - Afr Amer 67 mL/min (>60); Estimated Creatinine Clearance 35.52 ml/min; Glucose 127 mg/dL (74-106); Magnesium 1.9 mg/dL (1.6-2.6); Phosphorus 3.7 mg/dL (2.5-4.9); Potassium 3.8 mmol/L (3.5-5.1); Sodium Level 138 mmol/L (136-145)
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
[2023-06-23] MEDS: Magnesium Chloride 64 MG Delay Rel.Tablet PO (09:56)
[2023-06-23] MEDS: Aspirin 81 MG TAB.CHEW 162 MG PO (09:56)
[2023-06-23] MEDS: Enoxaparin 40 MG/0.4 ML Syringe SC (09:56)
[2023-06-23] MEDS: Calcium Carb/Vitamin D 1 TABLET Tablet PO (09:56)
[2023-06-23] MEDS: Meloxicam 15 MG Tablet PO (09:56)
[2023-06-23] MEDS: buPROPion (XL) 150 MG TABLET.XL PO (09:57)
[2023-06-23] MEDS: Fluoxetine HCl 40 MG CAPSULE PO (09:57)
[2023-06-23 10:16] VITALS: BP 118/70; PULSE 64; RESP 12; TEMP 36.6; O2SAT 98
[2023-06-23] MEDS: Insulin Lispro 100 UNIT/ML INSULN.PEN SC ×2 (11:32→17:03)
[2023-06-23 11:51] LABS: Bedside Glucose 202 mg/dL (74-106)
[2023-06-23 15:58] VITALS: BP 155/71; PULSE 58; RESP 12; TEMP 36.6; O2SAT 97
[2023-06-23 15:59] VITALS: BMI 23.8
[2023-06-23 17:23] LABS: Bedside Glucose 155 mg/dL (74-106)
[2023-06-23 20:03] VITALS: BMI 23.8
[2023-06-23] MEDS: Atorvastatin Calcium 40 MG Tablet PO (21:26)
[2023-06-23] MEDS: Tolterodine Tartrate 2 MG CAP.SA PO (21:26)
[2023-06-23 21:50] VITALS: BP 160/79; PULSE 75; RESP 18; TEMP 37.1; O2SAT 98
[2023-06-23 21:53] LABS: Bedside Glucose 127 mg/dL (74-106)
[2023-06-24 03:23] LABS: Bedside Glucose 135 mg/dL (74-106)
[2023-06-24 03:50] VITALS: BP 168/86; PULSE 62; RESP 18; TEMP 37.1; O2SAT 96
[2023-06-24 04:30] VITALS: BP 141/61
[2023-06-24 06:00] VITALS: BMI 23.6
[2023-06-24 06:10] LABS: Bedside Glucose 149 mg/dL (74-106)
[2023-06-24 06:50] LABS: Absolute Lymphocyte Count 2.82 X10^3/uL (0.83-4.51); Absolute Neutrophil Count 4.7 X10^3/uL (2.0-7.7); Basophil# 0.04 X10^3/uL; Basophil% 0.5 % (0-1); Eosinophil# 0.17 X10^3/uL; Eosinophils% 1.9 % (0-5); Hematocrit 38.5 % (37-47); Hemoglobin 11.9 g/dL (12.0-15.0); Lymphocyte # 2.82 X10^3/ul (0.83-4.51); Lymphocyte % 31.9 % (19-41); Mean Corp Hgb Conc 30.9 g/dL (32-36); Mean Corpuscular Hgb 24.9 pg (27.0-32.0); Mean Corpuscular Volume 80.7 fL (81-99); Mean Platelet Vol. 11.7 fl (6.2-12.0); Monocyte# 1.07 X10^3/uL; Monocyte% 12.1 % (0-10); NRBC Flagged by Analyzer 0 % (0-5); Neutrophil # 4.71 X10^3/uL (2.7-7.7); Neutrophil % 53.3 % (47-70); Platelet Count 158 K/mm3 (150-450); RBC Distribution Width CV 15.1 % (11.6-14.6); RBC Distribution Width SD 43.9 fl (35.1-43.9); Red Blood Count 4.77 M/mm3 (4.2-5.4); White Blood Count 8.8 K/mm3 (4.4-11.0)
[2023-06-24 07:15] LABS: Anion Gap 7 (5-15); BUN 26 mg/dL (7-18); BUN/Creat Ratio 26.7 RATIO (10-20); Calcium,Total 9.2 mg/dL (8.5-10.1); Chloride 106 mmol/L (98-107); Creatinine, Serum 0.98 mg/dL (0.55-1.02); EST Glomerular Filtration Rate 58 mL/min (>60); Est Glom Filt Rate - Afr Amer 70 mL/min (>60); Estimated Creatinine Clearance 36.61 ml/min; Glucose 131 mg/dL (74-106); Potassium 3.8 mmol/L (3.5-5.1); Sodium Level 139 mmol/L (136-145)
[2023-06-24 07:30] LABS: Bedside Glucose 123 mg/dL (74-106)
[2023-06-24 09:50] VITALS: BP 121/111; PULSE 52; RESP 16; TEMP 37.3; O2SAT 98
[2023-06-24] MEDS: Magnesium Chloride 64 MG Delay Rel.Tablet PO (10:06)
[2023-06-24] MEDS: buPROPion (XL) 150 MG TABLET.XL PO (10:06)
[2023-06-24] MEDS: Calcium Carb/Vitamin D 1 TABLET Tablet PO (10:06)
[2023-06-24] MEDS: Fluoxetine HCl 40 MG CAPSULE PO (10:06)
[2023-06-24] MEDS: Aspirin 81 MG TAB.CHEW 162 MG PO (10:06)
[2023-06-24] MEDS: Enoxaparin 40 MG/0.4 ML Syringe SC (10:07)
[2023-06-24] MEDS: Meloxicam 15 MG Tablet PO (10:07)
--- NOTE | 2023-06-24 11:34 | PCM.DC.SUM ---
Providers Date of Admission: 06/20/23 Date of Discharge: 06/24/23 Primary Care Physician: Dr. Dhiraj Julian MD Reason For Visit: ALTERED MENTAL STATUS WITH POSSIBLE TIA VS CVA Diagnosis Discharge Diagnosis (1) Acute alteration in mental status: Status: Acute Code(s): R41.82 - Altered mental status, unspecified (2) History of dementia: Status: Acute Code(s): Z86.59 - Personal history of other mental and behavioral disorders (3) Mild dehydration: Status: Acute Code(s): E86.0 - Dehydration Medications at Discharge Home Medications atorvastatin 40 mg tablet 40 mg PO QHS cholestrol 02/14/14 tolterodine 2 mg capsule,extended release 24 hr (Detrol LA) 2 mg PO QHS overactive bladder 02/14/14 magnesium 250 mg tablet 250 mg PO DAILY Supplement 11/14/20 valsartan 320 mg tablet 320 mg PO DAILY Cholesterol 04/10/21 amlodipine 10 mg tablet 10 mg PO DAILY bp 05/02/21 bupropion HCl 150 mg 24 hr tablet, extended release 150 mg PO DAILY mood 05/02/21 fluoxetine 40 mg capsule 40 mg PO DAILY depression 05/02/21 hydrochlorothiazide 12.5 mg capsule 12.5 mg PO DAILY bp/fluid 05/02/21 metformin 1,000 mg tablet 1,000 mg PO BID dm 05/02/21 calcium carbonate 600 mg-vitamin D3 5 mcg (200 unit) tablet 1 tab PO DAILY Supplement 03/21/22 Lactobacillus acidophilus 20 billion cell capsule (Florajen Acidophilus) 20,000 mmu cells PO DAILY 01/25/23 clobetasol 0.05 % topical ointment 1 applic topical BID PRN rash 01/25/23 hyoscyamine sulfate 0.125 mg sublingual tablet 0.125 mg sublingual Q4H PRN dyspepsia 01/25/23 linagliptin 5 mg tablet 5 mg PO DAILY 01/25/23 meclizine 12.5 mg tablet 12.5 mg PO Q6H PRN dizziness 01/25/23 meloxicam 15 mg tablet 15 mg PO DAILY 01/25/23 nystatin 100,000 unit/gram topical powder 1 applic topical BID PRN rash 02/13/23 ondansetron 4 mg disintegrating tablet 4 mg PO Q6H PRN nausea and vomiting 08/02/23 aspirin 81 mg chewable tablet 162 mg (2 x 81 mg) PO DAILYCM #30 tabs 06/21/23 Hospital Course Operations None Procedures None Summary of Care Provided Minutes Spent on Discharge: 55 Hospital Course: Patient is an 83-year-old female with a past medical history as outlined was admitted through the ED on 06/20/2023 on account of altered mental status. Last known well was around 130 on the day of admission June 20, 2023 when someone went to check on her and she was found to be missing from her home. She was found by one of her neighbors due to nausea and vomiting and was noted to be very confused. She apparently had mild dementia per her daughter but she had been very functional up until that point. She had had nonsustained fever, chills, dehydration or constipation or any other illness. Urine drug screen was negative. CT of the brain, head and neck was negative for any acute pathology and showed no evidence of stroke. Creatinine was mildly elevated and so there was concern for dehydration. She was admitted and managed for acute encephalopathy with concerns for dehydration and to rule out a stroke. MRI of the brain done was negative for stroke and so his symptoms were thought to be due to transient global amnesia in light of her dementia. Patient remained stable during this admission. She was evaluated by PT OT and was deemed as needing skilled care in light of her worsening dementia. [facility]. She is follow-up with her primary care doctor within 1 to 2 weeks. Patient seen and examined prior to discharge. He had no complaints and had an uneventful night. Review of systems otherwise negative. Labs and vitals reviewed. Home medication reviewed and reconciled. Physical Exam Const no apparent distress and average body habitus Constitutional Narrative: Very confused. Alert and oriented x 0 General Appearance: cooperative Orientation / Consciousness: awake, confused and disoriented Exam Limitations: no limitations HEENT normocephalic, head/scalp atraumatic and hearing grossly normal bilaterally Mouth: oral and palatal mucosa normal Eyes PERRL and EOMs intact bilaterally Neck no lymphadenopathy and supple Resp normal respiratory effort, no retractions and no use of accessory muscles Cardio regular rate, regular rhythm, S1 normal heart sound, S2 normal heart sound and no murmurs GI normal to inspection, nondistended, normoactive bowel sounds and soft to palpation Extremity normal to inspection, full ROM and no clubbing, cyanosis or edema General Extremity: edema Skin no rashes or lesions noted Neuro CN's II-XII intact bilaterally, moves all extremities, no focal motor deficits and no sensory deficits noted Sensorium / Orientation: awake and alert Motor Exam: strength 5/5 throughout Psych Psych Narrative: very confused Weight / BMI Weight Weight: 133 lb 2.547 oz Body Mass Index (BMI) 23.6 ABG / Lab / Microbiology Data 06/24/23 06:20 06/24/23 06:20 Laboratory: Laboratory Results - last 24 hr 06/20/23 16:36: POC Glucose 123 H 06/23/23 11:31: POC Glucose 202 H 06/23/23 17:03: POC Glucose 155 H 06/23/23 21:19: POC Glucose 127 H 06/24/23 03:05: POC Glucose 135 H 06/24/23 05:50: POC Glucose 149 H 06/24/23 06:20: WBC 8.8, RBC 4.77, Hgb 11.9 L, Hct 38.5, MCV 80.7 L, MCH 24.9 L, MCHC 30.9 L, RDW Std Deviation 43.9, RDW Coeff of Finesse 15.1 H, Plt Count 158, MPV 11.7, Immature Gran % (Auto) 0.300, Neut % (Auto) 53.3, Lymph % (Auto) 31.9, [place] % (Auto) 12.1 H, Eos % (Auto) 1.9, Baso % (Auto) 0.5, Absolute Neuts (auto) 4.7, Absolute Lymphs (auto) 2.82, Nucleated RBC % 0, Sodium 139, Potassium 3.8, Chloride 106, Carbon Dioxide 26.0, Anion Gap 7, BUN 26 H, Creatinine 0.98, Estim Creat Clear Calc 36.61, Est GFR (MDRD) Af Amer 70, Est GFR (MDRD) Non-Af 58 L, BUN/Creatinine Ratio 26.7 H, Glucose 131 H, Calcium 9.2 D/C Instructions Discharge Diet: 1800 Calorie Control Diet Weight Bearing Status: Weight bearing as tolerated Call your doctor if you observe: Fever of 101 or Higher, Shortness of breath, Fainting spells and Chest pain Meaningful Use Info Meaningful Use Diagnoses (Choose all that apply): None applicable Discharge Plan Admission Admit Date/Time: 06/20/23 21:23 Primary Reason for Your Visit: weakness, altered mental status Attending Provider: Janneth Lewis Primary Care Provider: Dhiraj Julian Consulting Providers: Lars Pelletier; Surjit Johns Instructions Patient Instructions: Altered LOC Ch Discharge Orders/Prescriptions Prescriptions: New aspirin 81 mg Tablet,Chewable 162 mg PO DAILYCM Qty: 30 0RF Continued valsartan 320 mg tablet 320 mg PO DAILY Patient Comments: TAKE 1 TABLET BY MOUTH EVERY DAY meloxicam 15 mg tablet 15 mg PO DAILY Patient Comments: TAKE 1 TABLET BY MOUTH ONCE DAILY WITH FOOD Florajen Acidophilus 20 billion cell capsule 20,000 mmu cells PO DAILY Patient Comments: TAKE 1 CAPSULE BY MOUTH ONCE DAILY meclizine 12.5 mg tablet 12.5 mg PO Q6H PRN (Reason: dizziness) clobetasol 0.05 % ointment 1 applic topical BID PRN (Reason: rash) hyoscyamine sulfate 0.125 mg tablet, sublingual 0.125 mg sublingual Q4H PRN (Reason: dyspepsia) linagliptin 5 mg tablet 5 mg PO DAILY nystatin 100,000 unit/gram powder 1 applic topical BID PRN (Reason: rash) ondansetron 4 mg tablet,disintegrating 4 mg PO Q6H PRN (Reason: nausea and vomiting) tolterodine [Detrol LA] 2 MG capsule,extended release 24hr 2 mg PO QHS Patient Comments: URINARY MEDICATION atorvastatin 40 MG tablet 40 mg PO QHS Patient Comments: CHOLESTEROL magnesium 250 mg Tablet 250 mg PO DAILY fluoxetine 40 mg capsule 40 mg PO DAILY amlodipine 10 mg tablet 10 mg PO DAILY metformin 1,000 mg tablet 1,000 mg PO BID hydrochlorothiazide 12.5 mg capsule 12.5 mg PO DAILY bupropion HCl 150 mg tablet extended release 24 hr 150 mg PO DAILY calcium carbonate-vitamin D3 600 mg-5 mcg (200 unit) Tablet 1 tab PO DAILY Discontinued glimepiride 1 mg tablet 1 mg PO QAM Rx Instructions: administer with breakfast oxycodone-acetaminophen 2.5-325 mg tablet 1 tab PO Q6H PRN (Reason: pain) Patient Comments: TAKE 1 TABLET BY MOUTH EVERY 6 HOURS NEEDED FOR PAIN FOR 10 DAYS INS WILL NOT COVER gabapentin 300 mg capsule 600 mg PO QHS Referrals / Follow Up: Dhiraj Julian MD [Primary Care Provider] - Within 1 Week Disposition Disposition (needs filled in before D/C Order can be placed): Home, Self Care Charges/Coding Visit Charges Inpatient E&M: 15907 Disch Hosp >30min
[2023-06-24] MEDS: Insulin Lispro 100 UNIT/ML INSULN.PEN SC (12:14)
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
[2023-06-24 12:33] LABS: Bedside Glucose 188 mg/dL (74-106)
[2023-06-24 12:42] VITALS: BMI 23.6
--- NOTE | 2023-06-24 14:17 | PHA.DC.MR.R ---
Pharmacy [facility] Reconciliation Pharmacy Service has performed discharge medication reconciliation for this patient. The patient's discharge medication list was reviewed for discrepancies and discrepancies were resolved. Medications at Discharge Home Medications atorvastatin 40 mg tablet 40 mg PO QHS cholestrol 02/14/14 tolterodine 2 mg capsule,extended release 24 hr (Detrol LA) 2 mg PO QHS overactive bladder 02/14/14 magnesium 250 mg tablet 250 mg PO DAILY Supplement 11/14/20 valsartan 320 mg tablet 320 mg PO DAILY Cholesterol 04/10/21 amlodipine 10 mg tablet 10 mg PO DAILY bp 05/02/21 bupropion HCl 150 mg 24 hr tablet, extended release 150 mg PO DAILY mood 05/02/21 fluoxetine 40 mg capsule 40 mg PO DAILY depression 05/02/21 hydrochlorothiazide 12.5 mg capsule 12.5 mg PO DAILY bp/fluid 05/02/21 metformin 1,000 mg tablet 1,000 mg PO BID dm 05/02/21 calcium carbonate 600 mg-vitamin D3 5 mcg (200 unit) tablet 1 tab PO DAILY Supplement 03/21/22 Lactobacillus acidophilus 20 billion cell capsule (Florajen Acidophilus) 20,000 mmu cells PO DAILY 01/25/23 clobetasol 0.05 % topical ointment 1 applic topical BID PRN rash 01/25/23 hyoscyamine sulfate 0.125 mg sublingual tablet 0.125 mg sublingual Q4H PRN dyspepsia 01/25/23 linagliptin 5 mg tablet 5 mg PO DAILY 01/25/23 meclizine 12.5 mg tablet 12.5 mg PO Q6H PRN dizziness 01/25/23 meloxicam 15 mg tablet 15 mg PO DAILY 01/25/23 nystatin 100,000 unit/gram topical powder 1 applic topical BID PRN rash 02/13/23 ondansetron 4 mg disintegrating tablet 4 mg PO Q6H PRN nausea and vomiting 02/13/23 aspirin 81 mg chewable tablet 162 mg (2 x 81 mg) PO DAILYCM #30 tabs 06/21/23
--- NOTE | 2023-06-24 15:53 | CHAPLAIN ---
Type of Pastoral Visit _x__ Initial Visit ___ Follow-up Visit ___ On-call Visit ___ General Patient Visit ___ Spiritual Assessment ___ Family Conference ___ Bereavement ___ Rapid Response ___ Code Blue ___ Other (describe below) Pastoral Care Referral From _x__ Patient ___ Family ___ Nurse ___ Physician ___ Medication Reconciliation Technician ___ Power Equipment Mechanics Instructor ___ Other (describe below) Sacrament/Intervention ___ Active listening ___ Anointing ___ Oriental Orthodox ___ Bereavement ___ Communion ___ Susi exploration ___ ___ Life review ___ Prayer ___ Reconciliation ___ Sacrament of Sick _x__ Supportive presence ___ Wedding ___ Other (describe below) Pastoral Comments this patient was being readied for discharge when this carpenter mine entered the room; offer of good wishes and support given as pt greets the carpenter mine and thanks him for coming; pt talks freely as she is being wheeled out for discharge
== END 2023-06-24 13:41 | disposition home or self-care (01) ==
LOC: ED 21:10 → PCU 21:28
PROVIDERS: Internal Medicine; Admitting Provider Family Medicine; Emergency Provider Emergency Medicine; PCP Family Medicine; Visit Provider Student in an Organized Health Care Education/Training Program
DX: G45.4 Transient global amnesia (principal); F03.90 Unspecified dementia, unspecified severity, without behavioral disturbance, psychotic disturbance, mood disturbance, and anxiety; E11.42 Type 2 diabetes mellitus with diabetic polyneuropathy; E86.0 Dehydration; I10 Essential (primary) hypertension; E78.00 Pure hypercholesterolemia, unspecified; Z79.84 Long term (current) use of oral hypoglycemic drugs; M48.00 Spinal stenosis, site unspecified; Z79.899 Other long term (current) drug therapy; F32.A Depression, unspecified; R11.2 Nausea with vomiting, unspecified; I65.23 Occlusion and stenosis of bilateral carotid arteries; I08.1 Rheumatic disorders of both mitral and tricuspid valves
CPT/HCPCS: 36415; 70450; 70496; 70498; 70551; 71045; 80048; 80053; 80061; 80307; 81001; 82077; 82607; 82746; 82962; 83735; 84100; 84443; 84484; 85025; 85610; 85730; 93005; 93306; 93880; 94762; 96360; 96361; 96372; 97110; 97116; 97162; 97166; 97530; 97535; 99221; 99285; J7030; Q9967; A4216; G0378

== ENCOUNTER → 2023-06-26 | Outpatient (REF) | payer MEDICARE, OTHER, SELFPAY ==
[2023-06-26 08:48] LABS: Erythrocyte Sedimentation Rate 20 mm/hr (0-30)
[2023-06-26 08:51] LABS: Absolute Lymphocyte Count 2.63 X10^3/uL (0.83-4.51); Basophil# 0.04 X10^3/uL; Basophil% 0.5 % (0-1); Eosinophil# 0.21 X10^3/uL; Eosinophils% 2.7 % (0-5); Hematocrit 36.3 % (37-47); Hemoglobin 11.4 g/dL (12.0-15.0); Lymphocyte # 2.63 X10^3/ul (0.83-4.51); Lymphocyte % 33.7 % (19-41); Mean Corp Hgb Conc 31.4 g/dL (32-36); Mean Corpuscular Hgb 25.1 pg (27.0-32.0); Monocyte# 0.86 X10^3/uL; NRBC Flagged by Analyzer 0 % (0-5); Neutrophil # 4.04 X10^3/uL (2.7-7.7); Neutrophil % 51.7 % (47-70); Platelet Count 165 K/mm3 (150-450); RBC Distribution Width CV 15.1 % (11.6-14.6); RBC Distribution Width SD 43.1 fl (35.1-43.9); Red Blood Count 4.54 M/mm3 (4.2-5.4); White Blood Count 7.8 K/mm3 (4.4-11.0)
[2023-06-26 09:11] LABS: ALB/GLOB Ratio 1.1 RATIO (0.9-2.4); AST(SGOT) 19 U/L (15-37); Alanine Aminotransfer ALT/SGPT 21 U/L (13-56); Albumin, Serum 3.4 g/dL (3.2-5.0); Alkaline Phosphatase 77 U/L (45-117); Anion Gap 6 (5-15); BUN 24 mg/dL (7-18); BUN/Creat Ratio 22.9 RATIO (10-20); Calcium,Total 9.1 mg/dL (8.5-10.1); Chloride 104 mmol/L (98-107); Creatinine, Serum 1.05 mg/dL (0.55-1.02); EST Glomerular Filtration Rate 53 mL/min (>60); Est Glom Filt Rate - Afr Amer 65 mL/min (>60); Globulin 3.2 g/dL (2.2-4.2); Glucose 144 mg/dL (74-106); Protein, Total 6.6 g/dL (6.4-8.2); Sodium Level 136 mmol/L (136-145)
[2023-06-26 09:53] LABS: Hemoglobin A1c 6.9 % (3.8-5.6)
== END ==
LOC: OLS.WHLCAR 05:00
PROVIDERS: PCP Family Medicine; Visit Provider Internal Medicine
DX: E11.40 Type 2 diabetes mellitus with diabetic neuropathy, unspecified (principal); F03.90 Unspecified dementia, unspecified severity, without behavioral disturbance, psychotic disturbance, mood disturbance, and anxiety; I10 Essential (primary) hypertension
CPT/HCPCS: 36415; 80053; 83036; 85025; 85652

== ENCOUNTER 2023-08-04 19:41 | Inpatient (IN) | payer MEDICARE, OTHER, SELFPAY ==
[2023-08-04 19:42] VITALS: BP 129/65; PULSE 81; RESP 16; TEMP 36.4; O2SAT 99; BMI 23.3
--- NOTE | 2023-08-04 20:12 | CT_ITS ---
STUDY: CT ABDOMEN AND PELVIS WITH CONTRAST REASON FOR EXAM: Female, 83 years old. abdominal pain RADIATION DOSAGE (If Supplied By Facility): CTDIvol = ( 9.51 ) mGy, DLP = ( 876.03 ) mGycm TECHNIQUE: Transaxial images were obtained from the dome of the diaphragm to the symphysis pubis without oral contrast. 100ml Isovue 370 was administered. Sagittal and coronal images were reconstructed. Individualized dose optimization techniques were used for this CT. COMPARISON: 02/17/2023. FINDINGS: Left lower lobe nodule measuring 1 cm stable or slightly increased in the interval. Minimal posterior dependent atelectasis. Redemonstrated hypoattenuated mass within the right atrium measuring 3.8 x 3.1 cm.Remainder of the liver unremarkable. There are surgical clips in the gallbladder fossa consistent with a prior cholecystectomy. Normal spleen. Normal pancreas. Normal bilateral adrenal glands. Mild fullness of the right renal collecting system and right ureter to the level of the urinary bladder with no stone along the trajectory of the right ureter, etiology indeterminate. Normal left kidney with no left hydronephrosis or hydroureter. Small hiatal hernia, otherwise unremarkable stomach. Normal small intestine. Increased fecal debris within the colon consistent with constipation. There is non-visualization of the appendix. There is significant thickening of the wall through the distal sigmoid and rectum concerning for significant inflammatory process/proctitis versus rectal lesion. There is diffuse atherosclerotic calcification of the abdominal aorta, without a demonstrated aneurysm. Normal inferior vena cava. Normal retroperitoneum. Normal urinary bladder. There is absence of the uterus consistent with a prior hysterectomy. Normal abdominal wall. There are diffuse degenerative changes of the visualized lumbar spine. CT/Abdomen/Pelvis W IV Cont ONLY IMPRESSION: Constipation. Question severe distal proctitis versus rectal lesion/neoplasm not excluded. Correlation with physical exam recommended. Stable hypoattenuated linear density most compatible with benign process. Status post cholecystectomy. Mild hiatal hernia. Question minimal right hydronephrosis and hydroureter with etiology indeterminate. A distal stricture, lesion along the ureter or urinary bladder cannot be excluded, versus recently passed stone. Clinical correlation recommended. Electronically Signed: Ammy Hamm MD at 22:12 EST ,
--- OUTSIDE RECORDS SUMMARY | 2023-08-04 20:20 | XMS RPT_ITS | CCD ---
Author Name Unknown Address [address] [place] [address] Organization [facility] Care Team Providers Care Business Owner/Engineer Name Role Phone Kathie Julian MD Primary Care Provider KATHIE JULIAN Referring Unavailable KATHIE JULIAN Primary Care Unavailable KATHIE JULIAN Referring Unavailable KATHIE JULIAN Primary Care Unavailable KATHIE JULIAN Attending Unavailable KATHIE JULIAN Primary Care Unavailable KATHIE JULIAN Referring Unavailable KATHIE JULIAN Primary Care Unavailable KATHIE JULIAN Primary Care Unavailable KATHIE JULIAN Attending Unavailable KATHIE JULIAN Primary Care Unavailable JEANA MENDOZA Attending Unavailable KATHIE JULIAN Primary Care Unavailable KATHIE JULIAN Referring Unavailable KATHIE JULIAN Referring Unavailable KATHIE JULIAN Primary Care Unavailable Allergies Allergy Classification Reported Allergen(s) Allergy Type Date of Onset Reaction(s) Facility (20 sources) Acetaminophen / HYDROcodone; Translations: [HYDROCODONE-ACETA MINOPHEN] Drug Allergy 7 Anaphylaxis [facility] Work Phone: (20 sources) Codeine; Translations: [CODEINE] Drug Allergy 4 Anaphylaxis [facility] Work Phone: (20 sources) crab allergenic extract; Translations: [CRAB] Drug Allergy 6 Unknown [facility] (20 sources) DULoxetine; Translations: [DULOXETINE] Drug Allergy 4 Other: See Comments [facility] (20 sources) levoFLOXacin; Translations: [LEVOFLOXACIN] Drug Allergy 0 Intolerance [facility] Work Phone: (20 sources) oxaprozin; Translations: [OXAPROZIN] Drug Allergy 5 [facility] Work Phone: (20 sources) predniSONE; Translations: [PREDNISONE] Drug Allergy 5 Other: See Comments [facility] Work Phone: (20 sources) zolpidem; Translations: [ZOLPIDEM TARTRATE] Drug Allergy 4 Mental Status Change [facility] Work Phone: Medications Current Medications Medication Drug Class(es) Dates Sig (Normalized) Sig (Original) 24 hr buPROPion hydrochloride 150 mg extended release oral tablet (20 sources) Aminoketone Start: 08-07-2021 End: 11-19-2023 take 1 tablet by mouth once daily buPROPion XL (WELLBUTRIN XL) 150 mg 24 hr tablet Indications: Anxiety with depression Take 1 tablet by mouth once daily. 90 tablet 1 05/23/2023 11/19/2023 Active Completed/Discontinued Medications Medication Drug Class(es) Dates Sig (Normalized) Sig (Original) acetaminophen 325 mg / oxyCODONE hydrochloride 2.5 mg oral tablet (20 sources) Opioid Agonist Start: 06-28-2022 take 1 tablet by mouth every six hours as needed for pain oxyCODONE-Acetami nophen 2.5-325 mg per tablet TAKE 1 TABLET BY MOUTH EVERY 6 HOURS NEEDED FOR PAIN FOR 10 DAYS INS WILL NOT COVER 0 06/28/2022 Active Problems Active Problems Problem Classification Problem Date Documented Da te Episodic/Chronic Allergic reactions (1 source) Inflammatory dermatosis; Translations: [Dermatitis, unspecified] Episodic Anxiety disorders (3 sources) Mixed anxiety and depressive disorder; Translations: [Other specified anxiety disorders] Chronic Cancer of bladder (20 sources) Malignant neoplasm, overlapping lesion of bladder; Translations: [Malignant neoplasm of overlapping sites of bladder] Onset: 1 07-11-2021 Chronic Cardiac dysrhythmias (20 sources) Ventricular premature beats; Translations: [Ventricular premature depolarization] Onset: 8 08-25-2018 Chronic Conditions associated with dizziness or vertigo (1 source) Benign paroxysmal positional vertigo; Translations: [Benign paroxysmal vertigo, unspecified ear] Episodic Delirium, dementia, and amnestic and other cognitive disorders (13 sources) Dementia; Translations: [Unspecified dementia without behavioral disturbance] Onset: 3 Chronic Diabetes mellitus with complications (20 sources) Type 2 diabetes mellitus; Translations: [Type 2 diabetes mellitus with diabetic neuropathy, unspecified] Onset: 7 08-28-2016 Chronic Diabetes mellitus without complication (2 sources) Type 2 diabetes mellitus without complication; Translations: [Type 2 diabetes mellitus without complications] Chronic Disorders of lipid metabolism (20 sources) Pure hypercholesterolemia; Translations: [Pure hypercholesterolemia, unspecified] Onset: 4 01-31-2004 Chronic Esophageal disorders (20 sources) Gastroesophageal reflux disease; Translations: [Gastro-esophageal reflux disease without esophagitis] Onset: 9 08-25-2018 Chronic Essential hypertension (20 sources) Benign essential hypertension; Translations: [Essential (primary) hypertension] Onset: 5 06-21-2005 Chronic Fracture of upper limb (1 source) Closed fracture thumb proximal phalanx; Translations: [Nondisplaced fracture of proximal phalanx of right thumb, subsequent encounter for fracture with routine healing] Episodic Headache; including migraine (1 source) Headache; Translations: [Headache, unspecified headache type] 06-25-2023 Episodic Mood disorders (3 sources) Depressive disorder; Translations: [Depression, unspecified depression type] Chronic Osteoarthritis (20 sources) Osteoarthrosis of the carpometacarpal joint of the thumb; Translations: [Unilateral primary osteoarthritis of first carpometacarpal joint, right hand] Onset: 9 07-23-2018 Chronic Other connective tissue disease (20 sources) History of right total knee replacement; Translations: [Presence of right artificial knee joint] Onset: 8 08-05-2017 Chronic Other connective tissue disease (2 sources) Bursitis of olecranon of left elbow; Translations: [Olecranon bursitis, left elbow] Episodic Other diseases of bladder and urethra (20 sources) Overactive bladder; Translations: [Overactive bladder] Onset: 9 08-25-2018 Chronic Other diseases of kidney and ureters (2 sources) Renal impairment; Translations: [Disorder of kidney and ureter, unspecified] Episodic Other gastrointestinal disorders (1 source) Altered bowel function; Translations: [Other specified symptoms and signs involving the digestive system and abdomen] Episodic Other hematologic conditions (1 source) Microcytosis; Translations: [Other abnormality of red blood cells] Episodic Other nervous system disorders (20 sources) Carpal tunnel syndrome of right wrist; Translations: [Carpal tunnel syndrome, right upper limb] Onset: 9 08-25-2018 Chronic Other non-traumatic joint disorders (1 source) Shoulder pain; Translations: [Pain in left shoulder] Episodic Other non-traumatic joint disorders (1 source) Pain in elbow; Translations: [Pain in left elbow] Episodic Other non-traumatic joint disorders (1 source) Chronic pain of left upper limb; Translations: [Pain in left shoulder] Episodic Other screening for suspected conditions (not mental disorders or infectious disease) (2 sources) Patient encounter status; Translations: [Encounter for screening for malignant neoplasm of colon] Episodic Spondylosis; intervertebral disc disorders; other back problems (20 sources) Displacement of lumbar intervertebral disc without myelopathy; Translations: [Other intervertebral disc displacement, lumbar region] Onset: 01-24-2004 Chronic Past or Other Problems Problem Classification Problem Date Documented Date Episodic/Chronic Genitourinary symptoms and ill-defined conditions (20 sources) Microalbuminuria; Translations: [Proteinuria, unspecified] Onset: 03-20-2017 03-20-2017 Episodic Heart valve disorders (2 sources) Heart murmur; Translations: [Cardiac murmur, unspecified] Onset: 12-21-2022 Episodic Other aftercare (2 sources) Follow-up orthopedic assessment; Translations: [Encounter for other orthopedic aftercare] Onset: 05-03-2022 06-14-2023 Episodic Other and unspecified benign neoplasm (20 sources) Hemangioma of liver; Translations: [Hemangioma of intra-abdominal structures] Onset: 02-17-2014 11-28-2018 Episodic Other diseases of kidney and ureters (1 source) Disorder of kidney and ureter, unspecified; Translations: [Renal insufficiency] Onset: 01-31-2023 Episodic Other lower respiratory disease (20 sources) Multiple nodules of lung; Translations: [Other nonspecific abnormal finding of lung field] Onset: 02-17-2014 06-17-2017 Episodic Pancreatic disorders (not diabetes) (13 sources) Acute pancreatitis; Translations: [Acute pancreatitis without necrosis or infection, unspecified] Onset: 05-03-2021 07-11-2021 Episodic Residual codes; unclassified (2 sources) Postprocedural state finding; Translations: [Other specified postprocedural states] Onset: 06-28-2022 06-14-2023 Episodic Spondylosis; intervertebral disc disorders; other back problems (20 sources) Lumbar radiculopathy; Translations: [Radiculopathy, lumbar region] Onset: 11-10-2015 11-10-2015 Episodic Results Test Name Value Interpretation Reference Range Facil ity Vital Signs Date Time Vital Sign Value Performing Clinician Faci lity 06-14-2023 15:38-0500 Body height 162.6 cm Kathie Julian MD Work Phone: [facility] 06-14-2023 15:38-0500 Body weight 64.32 kg Kathie Julian MD Work Phone: [facility] 06-14-2023 15:38-0500 Diastolic blood pressure 70 mm[Hg] Kathie Julain MD Work Phone: [facility] 06-14-2023 15:38-0500 Heart rate 67 /min Kathie Julian MD Work Phone: [facility] 06-14-2023 15:38-0500 SaO2% (BldA) [Mass fraction] 97 % Kathie Julian MD Work Phone: [facility] 06-14-2023 15:38-0500 Systolic blood pressure 146 mm[Hg] Kathie Julian MD Work Phone: [facility] 02-19-2023 15:30-0400 Diastolic blood pressure 70 mm[Hg] Jeana Mendoza MECHANICAL ENGINEERING SPECIALIST.FACING MACHINE OPERATOR Work Phone: [facility] 02-19-2023 15:30-0400 Heart rate 60 /min Jeana Mendoza MECHANICAL ENGINEERING SPECIALIST.FACING MACHINE OPERATOR Work Phone: [facility] 02-19-2023 15:30-0400 Respiratory rate 16 /min Jeana Mendoza MECHANICAL ENGINEERING SPECIALIST.FACING MACHINE OPERATOR Work Phone: [facility] 02-19-2023 15:30-0400 SaO2% (BldA) [Mass fraction] 98 % Jeana Mendoza MECHANICAL ENGINEERING SPECIALIST.FACING MACHINE OPERATOR Work Phone: [facility] 02-19-2023 15:30-0400 Systolic blood pressure 130 mm[Hg] Jeana Mendoza APRN.CNP Work Phone: [facility] 12-13-2022 15:28-0400 Body height 162.6 cm Kathie Julian MD Work Phone: [facility] 12-13-2022 15:28-0400 Body weight 62.41 kg Kathie Julian MD Work Phone: [facility] 12-13-2022 15:28-0400 Diastolic blood pressure 54 mm[Hg] Kathie Julian MD Work Phone: [facility] 12-13-2022 15:28-0400 Heart rate 69 /min Kathie Julian MD Work Phone: [facility] 12-13-2022 15:28-0400 SaO2% (BldA) [Mass fraction] 96 % Kathie Julian MD Work Phone: [facility] 12-13-2022 15:28-0400 Systolic blood pressure 118 mm[Hg] Kathie Julian MD Work Phone: [facility] 07-12-2022 11:08-0500 Body weight 60.6 kg Kathie Julian MD Work Phone: [facility] 07-12-2022 11:08-0500 Diastolic blood pressure 66 mm[Hg] Kathie Julian MD Work Phone: [facility] 07-12-2022 11:08-0500 Heart rate 66 /min Kathie Julian MD Work Phone: [facility] 07-12-2022 11:08-0500 Respiratory rate 20 /min Kathie Julian MD Work Phone: [facility] 07-12-2022 11:08-0500 SaO2% (BldA) [Mass fraction] 97 % Kathie Julian MD Work Phone: [facility] 07-12-2022 11:08-0500 Systolic blood pressure 144 mm[Hg] Kathie Julian MD Work Phone: [facility] 02-16-2022 10:15-0400 Body weight 59.88 kg Jeana Haagen MECHANICAL ENGINEERING SPECIALIST.FACING MACHINE OPERATOR Work Phone: [facility] 02-16-2022 10:15-0400 Diastolic blood pressure 66 mm[Hg] Jeana Haagen MECHANICAL ENGINEERING SPECIALIST.FACING MACHINE OPERATOR Work Phone: [facility] 02-16-2022 10:15-0400 Heart rate 58 /min Jeana Haagen MECHANICAL ENGINEERING SPECIALIST.FACING MACHINE OPERATOR Work Phone: [facility] 02-16-2022 10:15-0400 Respiratory rate 14 /min Jeana Haagen MECHANICAL ENGINEERING SPECIALIST.FACING MACHINE OPERATOR Work Phone: [facility] 02-16-2022 10:15-0400 SaO2% (BldA) [Mass fraction] 97 % Jeana Haagen MECHANICAL ENGINEERING SPECIALIST.FACING MACHINE OPERATOR Work Phone: [facility] 02-16-2022 10:15-0400 Systolic blood pressure 128 mm[Hg] Jeana Haagen MECHANICAL ENGINEERING SPECIALIST.FACING MACHINE OPERATOR Work Phone: [facility] 01-18-2022 11:34-0400 Body weight 61.69 kg Kathie Julian MD Work Phone: [facility] 01-18-2022 11:34-0400 Diastolic blood pressure 62 mm[Hg] Kathie Julian MD Work Phone: [facility] 01-18-2022 11:34-0400 Heart rate 60 /min Kathie Julian MD Work Phone: [facility] 01-18-2022 11:34-0400 Systolic blood pressure 132 mm[Hg] Kathie Julian MD Work Phone: [facility] 01-10-2022 11:21-0400 Diastolic blood pressure 62 mm[Hg] Kathie Julian MD Work Phone: [facility] 01-10-2022 11:21-0400 Systolic blood pressure 128 mm[Hg] Kathie Julian MD Work Phone: [facility] 01-10-2022 10:59-0400 Body weight 60.33 kg Kathie Julian MD Work Phone: [facility] 01-10-2022 10:59-0400 Heart rate 60 /min Kathie Julian MD Work Phone: [facility] 01-10-2022 10:59-0400 Respiratory rate 16 /min Kathie Julian MD Work Phone: [facility] 01-05-2022 13:32-0400 Body weight 60.33 kg Arpita Podlogar MECHANICAL ENGINEERING SPECIALIST.FACING MACHINE OPERATOR Work Phone: [facility] 01-05-2022 13:32-0400 Diastolic blood pressure 58 mm[Hg] Arpita Podlogar MECHANICAL ENGINEERING SPECIALIST.FACING MACHINE OPERATOR Work Phone: [facility] 01-05-2022 13:32-0400 Heart rate 69 /min Arpita Podlogar MECHANICAL ENGINEERING SPECIALIST.FACING MACHINE OPERATOR Work Phone: [facility] 01-05-2022 13:32-0400 Respiratory rate 18 /min Arpita Podlogar MECHANICAL ENGINEERING SPECIALIST.FACING MACHINE OPERATOR Work Phone: [facility] 01-05-2022 13:32-0400 SaO2% (BldA) [Mass fraction] 98 % Arpita Podlogar MECHANICAL ENGINEERING SPECIALIST.FACING MACHINE OPERATOR Work Phone: [facility] 01-05-2022 13:32-0400 Systolic blood pressure 112 mm[Hg] Arpita Podlogar MECHANICAL ENGINEERING SPECIALIST.FACING MACHINE OPERATOR Work Phone: [facility] 12-09-2021 09:00-0400 Body temperature 97.39 [degF] Jessica Athy PA-C Work Phone: [facility] 12-09-2021 09:00-0400 Body weight 61.87 kg Jessica Athy PA-C Work Phone: [facility] 12-09-2021 09:00-0400 Diastolic blood pressure 66 mm[Hg] Jessica Athy PA-C Work Phone: [facility] 12-09-2021 09:00-0400 Heart rate 75 /min Jessica Athy PA-C Work Phone: [facility] 12-09-2021 09:00-0400 Respiratory rate 20 /min Jessicabrittany Estevezmarianne PA-C Work Phone: [facility] 12-09-2021 09:00-0400 SaO2% (BldA) [Mass fraction] 97 % Jessicabrittany Estevezy PA-C Work Phone: [facility] 12-09-2021 09:00-0400 Systolic blood pressure 138 mm[Hg] Jessicabrittany Estevezy PA-C Work Phone: [facility] 11-08-2021 15:22-0400 Body weight 63.01 kg Jeana Haagen MECHANICAL ENGINEERING SPECIALIST.FACING MACHINE OPERATOR Work Phone: [facility] 11-08-2021 15:22-0400 Diastolic blood pressure 62 mm[Hg] Jeana Haagen MECHANICAL ENGINEERING SPECIALIST.FACING MACHINE OPERATOR Work Phone: [facility] 11-08-2021 15:22-0400 Heart rate 80 /min Jeana Haagen MECHANICAL ENGINEERING SPECIALIST.FACING MACHINE OPERATOR Work Phone: [facility] 11-08-2021 15:22-0400 Respiratory rate 16 /min Jeana Haagen MECHANICAL ENGINEERING SPECIALIST.FACING MACHINE OPERATOR Work Phone: [facility] 11-08-2021 15:22-0400 SaO2% (BldA) [Mass fraction] 98 % Jeana Haagen MECHANICAL ENGINEERING SPECIALIST.FACING MACHINE OPERATOR Work Phone: [facility] 11-08-2021 15:22-0400 Systolic blood pressure 134 mm[Hg] Jeana Haagen MECHANICAL ENGINEERING SPECIALIST.FACING MACHINE OPERATOR Work Phone: [facility] Encounters Encounter Date Encounter Type Care Provider Facility Start: 06-24-2023 Telephone encounter Kathie Julian MD Work Phone: [facility] Procedures Date Procedure Procedure Detail Performing Clinician Start: 01-31-2023 Us retroperitoneal r eal time w/image complete Kathie Julian MD Work Phone: Start: 12-24-2019 Adult depression scr eening assessment Khadijah Durandione NP Start: 12-17-2018 Electrocardiogram Plan of Treatment Date Care Activity Detail Author Start: 10-18-2024 Urine microalbumin profile [facility] Start: 06-14-2024 3 comp foot exam completed Diabetic Foot Exam [facility] Start: 06-14-2024 Diabetic foot examination Diabetic F oot Exam [facility] Start: 12-22-2023 Glaucoma screening Dilated Retinal E xam [facility] Start: 12-22-2023 Hepatitis C antibody , confirmatory test DILATED RETINAL EXAM [facility] Start: 12-14-2023 COVID-19 VACCINE (3 - Booster for Moderna series) COVID-19 VACCINE (3 - Booster for Moderna series) [facility] Immunizations Immunization Date Immunization Notes Care Provider Lisbet frausto 05-03-2021 influenza, seasonal, injectable, preservative free Kathie Julian MD Work Phone: [facility] 05-03-2021 influenza virus vacc ine, unspecified formulation Us Work Phone: [facility] 09-09-2020 COVID-19 vaccine, fu ll dose (MODERNA) Khadijah Schlechty [facility] 08-12-2020 COVID-19 vaccine, fu ll dose (MODERNA) Khadijah Schlechty [facility] 04-09-2020 influenza, high-dose , quadrivalent vaccine (FLUZONE HIGH DOSE QUADRIVALENT) Khadijah Schlecy [facility] Work Phone: 04-21-2019 influenza, high dose seasonal, preservative-free Khadijah Schlechty [facility] Work Phone: 04-28-2018 influenza, high dose seasonal, preservative-free Khadijah Schlechty [facility] 04-15-2017 influenza, high dose seasonal, preservative-free Khadijah Schlechty [facility] 05-08-2016 influenza, high dose seasonal, preservative-free Khadijah Schlechty [facility] Work Phone: 05-05-2015 influenza, high dose seasonal, preservative-free Khadijah Schlechty [facility] 01-05-2015 pneumococcal conjuga te vaccine, 13 valent Khadijah Schlechty [facility] 10-18-2014 tetanus toxoid, redu brie diphtheria toxoid, and acellular pertussis vaccine, adsorbed Khadijah Schlechty NP [facility] 04-21-2014 influenza, seasonal, injectable [facility] 02-17-2014 pneumococcal polysaccharide vaccine, 23 valent [facility] Work Phone: 05-23-2013 influenza virus vacc ine, unspecified formulation [facility]hadijah [facility] 04-19-2012 influenza virus vacc ine, unspecified formulation [facility] 07-15-2011 TD(adult) unspecifie d formulation Kathie Julian MD Work Phone: [facility] 06-20-2011 tetanus and diphther ia toxoids, adsorbed, preservative free, for adult use (2 Lf of tetanus toxoid and 2 Lf of diphtheria toxoid) [facility] 05-26-2011 influenza virus vacc ine, unspecified formulation [facility] Work Phone: 04-29-2010 influenza virus vacc ine, unspecified formulation [facility] Work Phone: 05-19-2009 zoster vaccine, live [facility] 04-16-2009 influenza virus vacc ine, unspecified formulation [facility] Work Phone: 05-20-2008 influenza virus vacc ine, unspecified formulation Khadijah [facility] 07-25-2007 influenza virus vacc ine, unspecified formulation [facility] Work Phone: 06-11-2006 influenza virus vacc ine, unspecified formulation Khadijah [facility] Work Phone: 04-30-2003 pneumococcal polysaccharide vaccine, 23 valent Jessica Rivera PA-C Work Phone: [facility] Work Phone: Payers Date Payer Category Payer Medicare [id number] 2020 Unknown MMO MMO MEDICARE SUPPLEMENT [id number] 2020-Present [phone] [address] [place] [address] Indemnity [id number] 2020 Unknown MMO MMO MEDICARE SUPPLEMENT [id number] 2020-Present [phone] [address] [place] [address] Indemnity [id number] 2013 Medicare MEDICARE MEDICAR E A AND B [id number] 2013-Present [phone] [address] [address] [place] [address] Medicare [id number] 2013 Medicare MEDICARE MEDICAR E A AND B [id number] 2013-Present [phone] [place] [address] Medicare [id number] 2013 Medicare [id number] Social History Date Type Detail Facility Start: 06-24-2014 End: 03-22-2022 Tobacco smoking status NHIS Ex-smoker [facility] Start: 06-14-1959 End: 01-30-1971 History of tobacco use Current smoker [facility] Start: 06-14-1959 End: 01-30-1971 History of tobacco use Cigarette Smoker [facility] Start: 10-04-2021 End: 06-14-2023 Alcohol intake Current non-drinker of alcohol (finding) [facility] Start: 1940 Sex Assigned At Not on file [facility] Start: 09-24-2021 End: 03-22-2022 Exposure to SARS-CoV-2 (event) Not sure [facility] Start: 06-24-2014 End: 12-13-2022 Cigarettes smoked current (pack per day) - Reported 0.3 [facility] Work Phone: Start: 06-24-2014 End: 03-22-2022 Tobacco use and exposure Smokeless tobacco non-user [facility] Work Phone: Start: 03-22-2022 Tobacco Comment Parents smoked in childhood home. Spouse non-smoker. [facility] Start: 12-24-2019 End: 12-13-2022 Tobacco use panel [facility] Work Phone: Adult Depression Screening Assessment 6 [facility] Work Phone: Medical Equipment Procedure Code Equipment Code Equipment Origin al Text Equipment Identifier Dates Cement Simplex B one High Viscosity - [id number] Start: 07-10-2017 Insert Triathlon 3 X3 11mm Tibial Posterior Stabilized Primary Knee - [id number] Start: 07-10-2017 Component Triath bere 3 Femoral Cemented Posterior Stabilize Knee Right - [id number] Start: 07-10-2017 Component Triath bere 32mm Asymmetric X3 10mm Patellar Knee - [id number] Start: 07-10-2017 Baseplate Triath bere 3 Tibial Primary Cement Knee - [id number] Start: 07-10-2017 Start: 11-25-2018 End: 07-12-2022 Clinical Notes 02-05-2019 to 06-25-2023 Telephone Encounter - Tamanna Moreno OCCA - 06/25/2023 1:51 PM ESTTelephone Encounter - Kathie Julian MD - 06/25/2023 1:43 PM ESTTelephone Encounter - Evans Hernandez RN - 06/25/2023 1:13 PM EST Note Date & Type Note Facility 06-25-2023 Miscellaneous Notes TC back to Amara who verbalized understanding. Agreeable to follow up as long as with Dr. Julian and on a or Saturday after 3PM. Per preference, scheduled followup for 08/16/2023. JUAN Elizondo Got it. Please make sure has a follow up. Phoned daughterAmara, and given provider's question. Amara states patient is only at [facility] for respite care until they can find a place for patient. Reports patient is not admitted there, and they are not doing a thing for patient. Reports they are trying to get patient into [facility], and [facility] will see patient tomorrow, to do an assessment, to see if she is a good candidate for [facility]. Daughter asking if pcp can order the sed rate, for patient to come to lab to have blood draw, since she is only at [facility] for respite care? Please advise daughterAmara. Is she doing rehab at [facility]. If we are not managing. I cannot order anything until she comes out. Daughter notified of provider message. She is asking for a sed rate to rule out temporal arteritis, as the hospital did not run this. Please advise Meds she is on have not changed in some time. They are also not usually big offenders of causing changes like this. She has had some memory decline I believe for a while, we may be seeing more signs of dementia. Pts daughter called and is notified of providers message and instructions. She voices understanding and will wait on Dr Julian to call back. Yenny Ferrer, TACHO Metformin refilled. Will forward note to Dr. Julian for him to review on his return. Jeana Mendoza APRN.ANGI Patient's daughter called in for a refill of Metformin and they are calling back this afternoon to check on the status as she is out of this medication and needs this filled today. Please call and advise. Patient's daughter Amara Kaplan calling to give Dr. Julian an update on patient and ask for his input, as well. Amara states patient has been showing signs of early dementia over the years, however this past pt had a dentist appt and instead of waiting for dtr Amara to pick her up, pt began to walk to the dentist. Pt stated there was a birthday republican at the dentist that she was going to. Pt was redirected back home by a neighbor. Pt also voiced to dtr that she had fallen twice that day () and had a headache and was vomiting. Due to pt's abrupt memory change as well as other sx's, dtr took pt to [facility] ER. Pt was admitted and is still there this morning. Pt believes it is the year 1988. Dtr states a complete stroke work up was completed and nothing was found . The plan is for pt to be discharged from [facility] today and pt will go to [facility] memory care unit under respite care for now until a further plan is determined. Daughter states [facility] has discontinued pt's gabapaentin, which has been only med change at this time. Dtr states pt continues fluoxetine and wellbutrin and is taking meds correctly as far as she knows and pt has not taken any Oxy IR this past week. Dtr wonders if Dr. Julian thinks this could all be med related, or other? Noted pt had recent OV with Dr. Julian on 06/14/23 with no med changes. Labs were ordered but not completed and pt was advised to F/U in 6 months. Daughter also requesting Metformin refill for pt as pended. Please advise daughter Amara. Dtr aware that Dr Julian is OOO today and will return tomorrow. Requested Prescriptions Pending Prescriptions Disp Refills metFORMIN (GLUCOPHAGE) 1,000 mg tablet 180 tablet 1 Sig: Take 1 tablet by mouth two times a day with meals. Last encounter with this provider: 06/14/2023 Next appt: not scheduled. Ginny Zacarias RN documented in this encounter [facility] 06-14-2023 Note HNO ID: [id number] Author: Kathie Julian MD Service: ? Author Type: Physician Type: Progress Notes Filed: 06/14/2023 4:19 PM Note Text: Patient presents with: 6 Month Exam HPI: Patient presents today for office visit for follow up. Still seeing Dr. Mark Takes her 2-3 hrs in the morning to get up and moving due to being in severe pain. They are going to send her to a surgery. Has ddd spine and also has arthritis in her hip. HTN: Monitors BP Stable Continues on HCTZ, Amlodipine and Valsartan Denies chest pain and shortness of breath Has had headaches for the last couple weeks. Taking Ibuprofen prn with relief. Headaches were sharp. She was congested when headaches came on. No headaches for last couple days. Feeling better. Some dizziness first thing in the mornings. Gets up slowly. Denies palpitations and syncope Some edema to B/L ankles the last couple days DM: Monitors sugars Checking once in the morning This a.m 103 No vision changes. Having cataract surgery soon. Not scheduled yet. Denies foot lesions, numbness and pain GERD: Continues on Omeprazole Symptoms controlled Still follows with Urology. Hx of bladder ca. Continues on Detrol. No urinary issues. Denies hematuria. MEDICATIONS: Current Outpatient Medications Medication Sig oxyCODONE IR (ROXICODONE) 5 mg immediate release tablet TAKE 1 TABLET BY MOUTH TWICE A DAY FOR 28 DAYS NEEDED omeprazole (PRILOSEC) 20 mg capsule Take 1 capsule by mouth daily before breakfast. 1/2 hr before meal. buPROPion XL (WELLBUTRIN XL) 150 mg 24 hr tablet Take 1 tablet by mouth once daily. glimepiride (AMARYL) 1 mg tablet Take 1 tablet by mouth daily with breakfast. meloxicam (MOBIC) 15 mg tablet Take 1 tablet by mouth once daily. With food. metFORMIN (GLUCOPHAGE) 1,000 mg tablet Take 1 tablet by mouth twice daily with meals. hyoscyamine sublingual (LEVSIN SL) 0.125 mg Dissolve 1 tablet under the tongue every 4 hours as needed. valsartan (DIOVAN) 320 mg tablet Take 1 tablet by mouth once daily. atorvastatin (LIPITOR) 40 mg tablet Take 1 tablet by mouth once daily. FLUoxetine (PROZAC) 40 mg capsule Take 1 capsule by mouth once daily. amLODIPine (NORVASC) 10 mg tablet Take 1 tablet by mouth once daily. hydroCHLOROthiazide 12.5 mg capsule Take 1 capsule by mouth once daily. linaGLIPtin (TRADJENTA) 5 mg tab Take 1 tablet by mouth once daily. clobetasol (TEMOVATE) 0.05 % ointment Apply to affected area twice daily. Apply to the severely and persistently itching patch of rash and bumps of left upper back post shoulder area dermatitis once to twice per day as tolerated; AVOID face, eyes/eyelids, and all deep fold areas. Can use for up to 2-4 weeks on a particular area, but then stop or taper off as able (sooner if cleared). tolterodine ER (DETROL LA) 2 mg 24 hr capsule Take 1 capsule by mouth once daily. oxyCODONE-Acetaminophen 2.5-325 mg per tablet TAKE 1 TABLET BY MOUTH EVERY 6 HOURS NEEDED FOR PAIN FOR 10 DAYS INS WILL NOT COVER blood sugar diagnostic (ACCU-CHEK GUILLERMINA) test strip Use twice a day as instructed. DX:E11.40 Insulin: No Lactobacillus acidophilus (FLORAJEN ACIDOPHILUS) 20 billion cell cap Take 1 capsule by mouth once daily. blood sugar diagnostic (BLOOD GLUCOSE TEST) test strip Test blood suga(s) 2 times daily. Dx: Type 2 DM - Controlled E11.9 Insulin: No nystatin (NYSTOP) powder Apply 1 application to affected area twice daily. gabapentin (NEURONTIN) 300 mg capsule Take 2 capsules by mouth daily at bedtime for 180 days. Patient also takes one pill in the morning as needed ondansetron orally disintegrating (ZOFRAN ODT) 4 mg disintegrating tablet Take 1 tablet by mouth every 6 hours. meclizine (ANTIVERT) 12.5 mg tab Take 1 tablet by mouth every 6 hours as needed (dizziness). DETROL LA 2 mg 24 hr capsule Take 1 capsule by mouth once daily. Magnesium Oxide 250 mg tab Take by mouth daily at bedtime. Blood-Glucose Meter (ACCU-CHEK GUILLERMINA PLUS METER) misc Use daily as instructed. DX:E11.40 Insulin: No Blood-Glucose Meter (ACCU-CHEK GUILLERMINA MONITORING) Misc Kit USE DIRECTED Current Facility-Administered Medications Medication Dose Route Frequency perflutren lipid microspheres 1.3 mL in NaCl (PF) 0.9% 10 mL injection (DEFINITY) INTRAVENOUS DIRECTED PRN sodium chloride 0.9 % (flush) 10 mL (BD POSIFLUSH) 10 mL INTRAVENOUS DIRECTED PRN ALLERGIES: ALLERGIES Allergen Reactions Codeine Anaphylaxis Ambien [Zolpidem Ta* Mental Status Change Hallucinations. Crab Unknown Cymbalta [Duloxetin* Other: See Comments Made blood sugar go up. Hallucinations Oxaprozin Prednisone Other: See Comments Hyperglycemia. Vicodin [Hydrocodon* Anaphylaxis Levaquin [Levofloxa* Intolerance Had joint pain. Hallucinations. 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 [facility] 06-14-2023 History of Present illness Narrative Patient presents with: 6 Month Exam HPI: Patient presents today for office visit for follow up. Still seeing Dr. Mark Takes her 2-3 hrs in the morning to get up and moving due to being in severe pain. They are going to send her to a surgery. Has ddd spine and also has arthritis in her hip. HTN: Monitors BP Stable Continues on HCTZ, Amlodipine and Valsartan Denies chest pain and shortness of breath Has had headaches for the last couple weeks. Taking Ibuprofen prn with relief. Headaches were sharp. She was congested when headaches came on. No headaches for last couple days. Feeling better. Some dizziness first thing in the mornings. Gets up slowly. Denies palpitations and syncope Some edema to B/L ankles the last couple days DM: Monitors sugars Checking once in the morning This a.m 103 No vision changes. Having cataract surgery soon. Not scheduled yet. Denies foot lesions, numbness and pain GERD: Continues on Omeprazole Symptoms controlled Still follows with Urology. Hx of bladder ca. Continues on Detrol. No urinary issues. Denies hematuria. MEDICATIONS: Current Outpatient Medications Medication Sig oxyCODONE IR (ROXICODONE) 5 mg immediate release tablet TAKE 1 TABLET BY MOUTH TWICE A DAY FOR 28 DAYS NEEDED omeprazole (PRILOSEC) 20 mg capsule Take 1 capsule by mouth daily before breakfast. 1/2 hr before meal. buPROPion XL (WELLBUTRIN XL) 150 mg 24 hr tablet Take 1 tablet by mouth once daily. glimepiride (AMARYL) 1 mg tablet Take 1 tablet by mouth daily with breakfast. meloxicam (MOBIC) 15 mg tablet Take 1 tablet by mouth once daily. With food. metFORMIN (GLUCOPHAGE) 1,000 mg tablet Take 1 tablet by mouth twice daily with meals. hyoscyamine sublingual (LEVSIN SL) 0.125 mg Dissolve 1 tablet under the tongue every 4 hours as needed. valsartan (DIOVAN) 320 mg tablet Take 1 tablet by mouth once daily. atorvastatin (LIPITOR) 40 mg tablet Take 1 tablet by mouth once daily. FLUoxetine (PROZAC) 40 mg capsule Take 1 capsule by mouth once daily. amLODIPine (NORVASC) 10 mg tablet Take 1 tablet by mouth once daily. hydroCHLOROthiazide 12.5 mg capsule Take 1 capsule by mouth once daily. linaGLIPtin (TRADJENTA) 5 mg tab Take 1 tablet by mouth once daily. clobetasol (TEMOVATE) 0.05 % ointment Apply to affected area twice daily. Apply to the severely and persistently itching patch of rash and bumps of left upper back post shoulder area dermatitis once to twice per day as tolerated; AVOID face, eyes/eyelids, and all deep fold areas. Can use for up to 2-4 weeks on a particular area, but then stop or taper off as able (sooner if cleared). tolterodine ER (DETROL LA) 2 mg 24 hr capsule Take 1 capsule by mouth once daily. oxyCODONE-Acetaminophen 2.5-325 mg per tablet TAKE 1 TABLET BY MOUTH EVERY 6 HOURS NEEDED FOR PAIN FOR 10 DAYS INS WILL NOT COVER blood sugar diagnostic (ACCU-CHEK GUILLERMINA) test strip Use twice a day as instructed. DX:E11.40 Insulin: No Lactobacillus acidophilus (FLORAJEN ACIDOPHILUS) 20 billion cell cap Take 1 capsule by mouth once daily. blood sugar diagnostic (BLOOD GLUCOSE TEST) test strip Test blood suga(s) 2 times daily. Dx: Type 2 DM - Controlled E11.9 Insulin: No nystatin (NYSTOP) powder Apply 1 application to affected area twice daily. gabapentin (NEURONTIN) 300 mg capsule Take 2 capsules by mouth daily at bedtime for 180 days. Patient also takes one pill in the morning as needed ondansetron orally disintegrating (ZOFRAN ODT) 4 mg disintegrating tablet Take 1 tablet by mouth every 6 hours. meclizine (ANTIVERT) 12.5 mg tab Take 1 tablet by mouth every 6 hours as needed (dizziness). DETROL LA 2 mg 24 hr capsule Take 1 capsule by mouth once daily. Magnesium Oxide 250 mg tab Take by mouth daily at bedtime. Blood-Glucose Meter (ACCU-CHEK GUILLERMINA PLUS METER) misc Use daily as instructed. DX:E11.40 Insulin: No Blood-Glucose Meter (ACCU-CHEK GUILLERMINA MONITORING) Misc Kit USE DIRECTED Current Facility-Administered Medications Medication Dose Route Frequency perflutren lipid microspheres 1.3 mL in NaCl (PF) 0.9% 10 mL injection (DEFINITY) INTRAVENOUS DIRECTED PRN sodium chloride 0.9 % (flush) 10 mL (BD POSIFLUSH) 10 mL INTRAVENOUS DIRECTED PRN ALLERGIES: ALLERGIES Allergen Reactions Codeine Anaphylaxis Ambien [Zolpidem Ta* Mental Status Change Hallucinations. Crab Unknown Cymbalta [Duloxetin* Other: See Comments Made blood sugar go up. Hallucinations Oxaprozin Prednisone Other: See Comments Hyperglycemia. Vicodin [Hydrocodon* Anaphylaxis Levaquin [Levofloxa* Intolerance Had joint pain. Hallucinations. 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) PONV (postoperative nausea and vomiting) 06/24/2017 Pure hypercholesterolemia Retinal break of right eye 2015 Type II or unspecified type diabetes mellitus without mention of complication, not stated as uncontrolled PAST SURGICAL HISTORY Procedure Laterality Date ARTHROSCOPY KNEE DIAGNOSTIC W/WO SYNOVIAL BX SPX Right 03/2005 Arthroscopy, knee ARTHRP INTERPOS INTERCARPAL/METACARPAL JOINTS Right 08/27/2018 Right thumb CMC arthroplasty with LRTI, palmaris longes and Right carpal tunnel release ARTHRP KNE CONDYLE&PLATU MEDIAL&LAT COMPARTMENTS Right 07/10/2017 Knee replacement, total DELIVERY ONLY 08/04/1963 , low transverse DELIVERY ONLY 03/02/1972 , low transverse CHOLECYSTOSTOMY PRQ W/IMAGING & CATHETER PLMT 1991 COLONOSCOPY FLX DX W/COLLJ SPEC WHEN PFRMD 08/22/2011 Colonoscopy LAMINECTOMY W/O FFD 07/16 VERT SEG LUMBAR 01/2004 removal of blood clot at site LAMINECTOMY,LUMBAR Left 03/26/2022 L3-[address] Fam medial facetectomy LAPAROSCOPY SURG CHOLECYSTECTOMY 1996 PAST SURGICAL HISTORY OF Right 2017 cataract surgery PAST SURGICAL HISTORY OF Right 2016 Macular hole repair TOTAL ABDOMINAL HYSTERECT W/WO RMVL TUBE OVARY 1987 fibroid TX ECTOPIC ABDOMINAL/VAGINAL APPR 1967 FAMILY HISTORY Problem Relation Age of Onset Arthritis Mother Hypertension Father Stroke Father Diabetes Father at 71 of diabetes Heart Father LA Arthritis Maternal Grandmother other (Other) Maternal Grandmother parkinsons other (Other) Brother sarcoid other (Other. GB resection.) Daughter Social History Tobacco Use Smoking status: Former Packs/day: 0.30 Years: 12.00 Additional pack years: 0.00 Total pack years: 3.60 Types: Cigarettes Start date: 06/14/1959 Quit date: 01/30/1971 Years since quittin.4 Smokeless tobacco: Never Tobacco comments: Parents smoked in childhood home. Spouse non-smoker. Substance Use Topics Alcohol use: No Drug use: No Reviewed current medications, allergies, past medical history, surgical history, family history and social history today. REVIEW OF SYSTEMS All other reviewed and negative other than HPI. HEALTH MAINTENANCE: Reviewed health maintenance issues today and recommended the following in detail. Hepatitis B Vaccine(1 of 3 - Risk 3-dose series) Never done RSV Vaccine(1 - 1-dose 60+ series) Never done Diabetic Foot Exam due on 07/12/2022 Influenza Vaccine(1) due on 03/15/2023 Covid-19 Vaccine(3 - 2022- season) due on 03/15/2023 HbA1C due on 06/14/2023 VITALS: BP 146/70 Pulse 67 Ht 162.6 cm (5' 4 ) Wt 64.3 kg (141 lb 12.8 oz) SpO2 97% BMI 24.34 kg/m Last 4 Encounter Wt Readings: Date: Wt: 12/13/2022 62.4 kg (137 lb 9.6 oz) 07/12/2022 60.6 kg (133 lb 9.6 oz) 03/22/2022 60.8 kg (134 lb) 02/16/2022 59.9 kg (132 lb) PHYSICAL EXAMINATION: General appearance: Well appearing, alert, in no acute distress, well-hydrated, well nourished. Skin: Skin color, texture, turgor normal, no suspicious rashes or lesions Head: Normocephalic, no masses, lesions, tenderness or abnormalities Eyes: Anicteric sclera. Pupils are equally round and reactive to light. Extraocular movements are intact. Lungs: Lungs clear to auscultation. No wheezing, rhonchi, rales Heart: RRR without murmur, gallop, or rubs. No ectopy Abdomen: Normal abdominal exam, Abdomen soft, non-tender. Bowel sounds normal. No masses, organomegaly Extremities: No deformities, edema, skin discoloration, clubbing or cyanosis. Good capillary refill. Musculoskeletal: No joint swelling, deformity, or tenderness Feet:Shoes and socks removed, No deformities, ulcers, calluses, normal distal pulses, and sensitive to 10 gm monofilament ASSESSMENT/PLAN: 1. Radiculopathy, lumbar region - ICD9: 724.4, ICD10: M54.16 (primary diagnosis) - per ortho 2. 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 Essential hypertension, benign - ICD9: 401.1, ICD10: I10 - fair control. Bp check and validate cuff in one month - BASIC METABOLIC PNL 4. Pure hypercholesterolemia - ICD9: 272.0, ICD10: E78.00 - stable. 5. Gastroesophageal reflux disease, unspecified whether esophagitis present - ICD9: 530.81, ICD10: K21.9 - stable. 6. Malignant neoplasm of overlapping sites of bladder (HCC) - ICD9: 188.8, ICD10: C67.8 - per urology Kathie Julian MD RTO in six months. documented in this encounter [facility] 06-05-2023 Miscellaneous Notes Patient has been identified by name and date of : Pharmacy phones for refill(s): Requested Prescriptions Pending Prescriptions Disp Refills omeprazole (PRILOSEC) 20 mg capsule 30 capsule 5 Sig: Take 1 capsule by mouth daily before breakfast. 1/2 hr before meal. Date of last office visit in primary care: 02/19/2023 Date of next office visit in primary care: 06/14/2023 Last 2 Encounter Wt Readings: Date: Wt: 12/13/2022 62.4 kg (137 lb 9.6 oz) 07/12/2022 60.6 kg (133 lb 9.6 oz) Previous labs/tests for medication: Not applicable Please advise. Thank you. Graciela Tello LPN. documented in this encounter [facility] 05-23-2023 Miscellaneous Notes The following approved medication requests have been transmitted electronically. Requested Prescriptions Signed Prescriptions Disp Refills meloxicam (MOBIC) 15 mg tablet 30 tablet 5 Sig: Take 1 tablet by mouth once daily. With food. Authorizing Provider: EJ SMITH MD Shanel Felton is calling Kathie Julian MD today requesting an prescription meloxicam (MOBIC) 15 mg tablet Please send to [facility]/ Alex documented in this encounter [facility] 05-22-2023 Miscellaneous Notes Patient has been identified by name and date of : Yes Requested Prescriptions Pending Prescriptions Disp Refills buPROPion XL (WELLBUTRIN XL) 150 mg 24 hr tablet 90 tablet 1 Sig: Take 1 tablet by mouth once daily. glimepiride (AMARYL) 1 mg tablet 30 tablet 11 Sig: Take 1 tablet by mouth daily with breakfast. RX INSTRUCTIONS: Patient aware RX will be sent to pharmacy. No need to notify patient. Lucrecia Henry documented in this encounter [facility] 03-07-2023 Miscellaneous Notes Medication refill requested by pharmacy. Requested Prescriptions Pending Prescriptions Disp Refills metFORMIN (GLUCOPHAGE) 1,000 mg tablet 180 tablet 1 Sig: Take 1 tablet by mouth twice daily with meals. Last encounter with this provider: 02/19/2023 Next appt: 06/14/2023 Ginny Zacarias RN documented in this encounter [facility] 02-19-2023 Note HNO ID: [id number] Author: Jeana Mendoza APRN.FACING MACHINE OPERATOR Service: ? Author Type: Nurse Practitioner Type: Progress Notes Filed: 02/19/2023 5:28 PM Note Text: This is a 82 year old female who presents today with: Patient presents with: ER F/U: [facility] ER 02/18/23 dx: abd pain HISTORY OF PRESENT ILLNESS: Shanel Felton is a 82 year old female. Patient presents with: ER F/U: [facility] ER 02/18/23 dx: abd pain Pt presents today with ER follow-up. Patient went to the emergency room on 02/18/2023 with complaints of a sudden onset of epigastric pain that started about 30 minutes prior to her onset of the emergency room. Per the documentation, patient stated for like something struck her in the epigastrium and it started radiating around both sides to the back. When the daughter arrived shortly after the onset, patient was hyperventilating and anxious. After arriving to the emergency room, the pain lessened to about a 7 out of 10. There was no nausea or vomiting. She did have diarrhea earlier in the day which was different than her normal 1-2 daily BMs. No melena or hematochezia. No fevers or chills. No chest pain or shortness of breath. Patient was noted to have a cystoscopy a week ago and it was normal. She also saw cardiology for a murmur and had a normal echo and EKG. She had a BMP to rule out electrolyte abnormalities. A CT scan to rule out perforation obstruction, or evidence of mesenteric ischemia. A broad lab and imaging work-up were obtained. Lactate was initially elevated, but then lowered on recheck. CT scan of the abdomen showed no evidence of acute intra-abdominal cause including mesenteric ischemia. The CT had questionable evidence of a atrial mass. A [id number] ultrasound was obtained and revealed no evidence of obvious intra atrial mass. [place] that the imaging was likely showing artifact. In addition patient recently had echo which did not demonstrate this. It was felt that patient was experiencing esophageal spasm. Patient did take a Levsin and felt improvement. Reports this morning she felt like she was going to start with symptoms again, but took the Levsin and had relief within 20 minutes. She reports that she feels great today. 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) PONV (postoperative nausea and vomiting) 06/24/2017 Pure hypercholesterolemia Retinal break of right eye 2016 Type II or unspecified type diabetes mellitus without mention of complication, not stated as uncontrolled PAST SURGICAL HISTORY Procedure Laterality Date ARTHROSCOPY KNEE DIAGNOSTIC W/WO SYNOVIAL BX SPX Right 03/2005 Arthroscopy, knee ARTHRP INTERPOS INTERCARPAL/METACARPAL JOINTS Right 08/27/2018 Right thumb CMC arthroplasty with LRTI, palmaris longes and Right carpal tunnel release ARTHRP KNE CONDYLEANDPLATU MEDIALANDLAT COMPARTMENTS Right 07/10/2017 Knee replacement, total DELIVERY ONLY 08/04/1963 , low transverse DELIVERY ONLY 03/02/1972 , low transverse CHOLECYSTOSTOMY PRQ W/IMAGING AND CATHETER PLMT 1991 COLONOSCOPY FLX DX W/COLLJ SPEC WHEN PFRMD 08/22/2011 Colonoscopy LAMINECTOMY W/O FFD 07/16 VERT SEG LUMBAR 01/2004 removal of blood clot at site LAMINECTOMY,LUMBAR Left 03/26/2022 L3-[address] Fam medial facetectomy LAPAROSCOPY SURG CHOLECYSTECTOMY 1996 PAST SURGICAL HISTORY OF Right 2017 cataract surgery PAST SURGICAL HISTORY OF Right 2016 Macular hole repair TOTAL ABDOMINAL HYSTERECT W/WO RMVL TUBE OVARY 1987 fibroid TX ECTOPIC ABDOMINAL/VAGINAL APPR 1967 ALLERGIES Codeine, Ambien [Zolpidem Tartrate], Crab, Cymbalta [Duloxetine], Oxaprozin, Prednisone, Vicodin [Hydrocodone-Acetaminophen], and Levaquin [Levofloxacin] MEDICATIONS Current Outpatient Medications Medication Sig hyoscyamine sublingual (LEVSIN SL) 0.125 mg Dissolve 1 tablet under the tongue every 4 hours as needed. valsartan (DIOVAN) 320 mg tablet Take 1 tablet by mouth once daily. atorvastatin (LIPITOR) 40 mg tablet Take 1 tablet by mouth once daily. FLUoxetine (PROZAC) 40 mg capsule Take 1 capsule by mouth once daily. amLODIPine (NORVASC) 10 mg tablet Take 1 tablet by mouth once daily. hydroCHLOROthiazide 12.5 mg capsule Take 1 capsule by mouth once daily. linaGLIPtin (TRADJENTA) 5 mg tab Take 1 tablet by mouth once daily. clobetasol (TEMOVATE) 0.05 % ointment Apply to affected area twice daily. Apply to the severely and persistently itching patch of rash and bumps of left upper back post shoulder area dermatitis once to twice per day as tolerated; AVOID face, eyes/eyelids, and all deep fold areas. Can use for up to 2-4 weeks on a particular area, but then stop or taper off as able (sooner if cleared). glimepiride (AMARYL) 1 mg tablet (more content not included)... [facility] 02-19-2023 Instructions Jeana Mendoza APRN.CNP - 02/19/2023 3:57 PM EDT Take the levsin as needed. Let us know if you get any further episode. documented in this encounter [facility] 02-19-2023 History of Present illness Narrative This is a 82 year old female who presents today with: Patient presents with: ER F/U: [facility] ER 02/18/23 dx: abd pain HISTORY OF PRESENT ILLNESS: Shanel Felton is a 82 year old female. Patient presents with: ER F/U: [facility] ER 02/18/23 dx: abd pain Pt presents today with ER follow-up. Patient went to the emergency room on 02/18/2023 with complaints of a sudden onset of epigastric pain that started about 30 minutes prior to her onset of the emergency room. Per the documentation, patient stated for like something struck her in the epigastrium and it started radiating around both sides to the back. When the daughter arrived shortly after the onset, patient was hyperventilating and anxious. After arriving to the emergency room, the pain lessened to about a 7 out of 10. There was no nausea or vomiting. She did have diarrhea earlier in the day which was different than her normal 1-2 daily BMs. No melena or hematochezia. No fevers or chills. No chest pain or shortness of breath. Patient was noted to have a cystoscopy a week ago and it was normal. She also saw cardiology for a murmur and had a normal echo and EKG. She had a BMP to rule out electrolyte abnormalities. A CT scan to rule out perforation obstruction, or evidence of mesenteric ischemia. A broad lab and imaging work-up were obtained. Lactate was initially elevated, but then lowered on recheck. CT scan of the abdomen showed no evidence of acute intra-abdominal cause including mesenteric ischemia. The CT had questionable evidence of a atrial mass. A [id number] ultrasound was obtained and revealed no evidence of obvious intra atrial mass. [place] that the imaging was likely showing artifact. In addition patient recently had echo which did not demonstrate this. It was felt that patient was experiencing esophageal spasm. Patient did take a Levsin and felt improvement. Reports this morning she felt like she was going to start with symptoms again, but took the Levsin and had relief within 20 minutes. She reports that she feels great today. 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) PONV (postoperative nausea and vomiting) 06/24/2017 Pure hypercholesterolemia Retinal break of right eye 2016 Type II or unspecified type diabetes mellitus without mention of complication, not stated as uncontrolled PAST SURGICAL HISTORY Procedure Laterality Date ARTHROSCOPY KNEE DIAGNOSTIC W/WO SYNOVIAL BX SPX Right 03/2005 Arthroscopy, knee ARTHRP INTERPOS INTERCARPAL/METACARPAL JOINTS Right 08/27/2018 Right thumb CMC arthroplasty with LRTI, palmaris longes and Right carpal tunnel release ARTHRP KNE CONDYLE&PLATU MEDIAL&LAT COMPARTMENTS Right 07/10/2017 Knee replacement, total DELIVERY ONLY 08/04/1963 , low transverse DELIVERY ONLY 03/02/1972 , low transverse CHOLECYSTOSTOMY PRQ W/IMAGING & CATHETER PLMT 1991 COLONOSCOPY FLX DX W/COLLJ SPEC WHEN PFRMD 08/22/2011 Colonoscopy LAMINECTOMY W/O FFD 07/16 VERT SEG LUMBAR 01/2004 removal of blood clot at site LAMINECTOMY,LUMBAR Left 03/26/2022 L3-[address] Fam medial facetectomy LAPAROSCOPY SURG CHOLECYSTECTOMY 1996 PAST SURGICAL HISTORY OF Right 2017 cataract surgery PAST SURGICAL HISTORY OF Right 2016 Macular hole repair TOTAL ABDOMINAL HYSTERECT W/WO RMVL TUBE OVARY 1986 fibroid TX ECTOPIC ABDOMINAL/VAGINAL APPR 1966 ALLERGIES Codeine, Ambien [Zolpidem Tartrate], Crab, Cymbalta [Duloxetine], Oxaprozin, Prednisone, Vicodin [Hydrocodone-Acetaminophen], and Levaquin [Levofloxacin] MEDICATIONS Current Outpatient Medications Medication Sig hyoscyamine sublingual (LEVSIN SL) 0.125 mg Dissolve 1 tablet under the tongue every 4 hours as needed. valsartan (DIOVAN) 320 mg tablet Take 1 tablet by mouth once daily. atorvastatin (LIPITOR) 40 mg tablet Take 1 tablet by mouth once daily. FLUoxetine (PROZAC) 40 mg capsule Take 1 capsule by mouth once daily. amLODIPine (NORVASC) 10 mg tablet Take 1 tablet by mouth once daily. hydroCHLOROthiazide 12.5 mg capsule Take 1 capsule by mouth once daily. linaGLIPtin (TRADJENTA) 5 mg tab Take 1 tablet by mouth once daily. clobetasol (TEMOVATE) 0.05 % ointment Apply to affected area twice daily. Apply to the severely and persistently itching patch of rash and bumps of left upper back post shoulder area dermatitis once to twice per day as tolerated; AVOID face, eyes/eyelids, and all deep fold areas. Can use for up to 2-4 weeks on a particular area, but then stop or taper off as able (sooner if cleared). glimepiride (AMARYL) 1 mg tablet Take 1 tablet by mouth daily with breakfast. tolterodine ER (DETROL LA) 2 mg 24 hr capsule Take 1 capsule by mouth once daily. omeprazole (PRILOSEC) 20 mg capsule Take 1 capsule by mouth daily before breakfast. 1/2 hr before meal. meloxicam (MOBIC) 15 mg tablet Take 1 tablet by mouth once daily. With food. metFORMIN (GLUCOPHAGE) 1,000 mg tablet Take 1 tablet by mouth twice daily with meals. buPROPion XL (WELLBUTRIN XL) 150 mg 24 hr tablet Take 1 tablet by mouth once daily. oxyCODONE-Acetaminophen 2.5-325 mg per tablet TAKE 1 TABLET BY MOUTH EVERY 6 HOURS NEEDED FOR PAIN FOR 10 DAYS INS WILL NOT COVER blood sugar diagnostic (ACCU-CHEK GUILLERMINA) test strip Use twice a day as instructed. DX:E11.40 Insulin: No Lactobacillus acidophilus (FLORAJEN ACIDOPHILUS) 20 billion cell cap Take 1 capsule by mouth once daily. blood sugar diagnostic (BLOOD GLUCOSE TEST) test strip Test blood suga(s) 2 times daily. Dx: Type 2 DM - Controlled E11.9 Insulin: No nystatin (NYSTOP) powder Apply 1 application to affected area twice daily. gabapentin (NEURONTIN) 300 mg capsule Take 2 capsules by mouth daily at bedtime for 180 days. Patient also takes one pill in the morning as needed ondansetron orally disintegrating (ZOFRAN ODT) 4 mg disintegrating tablet Take 1 tablet by mouth every 6 hours. meclizine (ANTIVERT) 12.5 mg tab Take 1 tablet by mouth every 6 hours as needed (dizziness). DETROL LA 2 mg 24 hr capsule Take 1 capsule by mouth once daily. Magnesium Oxide 250 mg tab Take by mouth daily at bedtime. Blood-Glucose Meter (ACCU-CHEK GUILLERMINA PLUS METER) misc Use daily as instructed. DX:E11.40 Insulin: No Blood-Glucose Meter (ACCU-CHEK GUILLERMINA MONITORING) Misc Kit USE DIRECTED Current Facility-Administered Medications Medication Dose Route Frequency perflutren lipid microspheres 1.3 mL in NaCl (PF) 0.9% 10 mL injection (DEFINITY) INTRAVENOUS DIRECTED PRN sodium chloride 0.9 % (flush) 10 mL (BD POSIFLUSH) 10 mL INTRAVENOUS DIRECTED PRN FAMILY HISTORY Problem Relation Age of Onset Arthritis Mother Hypertension Father Stroke Father Diabetes Father at 71 of diabetes Heart Father LA Arthritis Maternal Grandmother other (Other) Maternal Grandmother parkinsons other (Other) Brother sarcoid other (Other. GB resection.) Daughter Social History Tobacco Use Smoking status: Former Packs/day: 0.30 Years: 12.00 Total pack years: 3.60 Types: Cigarettes Start date: 06/14/1959 Quit date: 01/30/1971 Years since quittin.0 Smokeless tobacco: Never Tobacco comments: Parents smoked in childhood home. Spouse non-smoker. Substance Use Topics Alcohol use: No Drug use: No EXAM: BP 130/70 Pulse 60 Resp 16 SpO2 98% PHYSICAL EXAM: General Appearance: Well appearing, alert, in no acute distress, well-hydrated, well nourished.. Skin: Skin color, texture, turgor normal, no suspicious rashes or lesions. Head: Normocephalic, no masses, lesions, tenderness or abnormalities. Eyes: Anicteric sclera. Extraocular movements are intact. . Neck: Supple, no adenopathy; thyroid symmetric, normal size, no bruits. Lungs: Lungs clear to auscultation. No wheezing, rhonchi, rales.. Heart: RRR without murmur, gallop, or rubs. No ectopy. Abdomen: Normal abdominal exam, Abdomen soft. Mild generalized tenderness. No rebound/guarding. Bowel sounds normal. No masses, organomegaly. Extremities: No deformities, edema, skin discoloration, clubbing or cyanosis. Good capillary refill. . Neurologic: Gait normal. ASSESSMENT/PLAN: 1. Esophageal spasm - ICD9: 530.5, ICD10: K22.4 [place] symptoms related to esophageal spasm. Improved today. Has prn levsyn. She is aware to notify provider of any new/recurrent/worsening symptoms. Discussed treatment plan and patient voices understanding. Patient's questions answered appropriately. Medications and potential side effects were discussed and patient voices understanding. Return to the office as scheduled or as needed for worsening/no improvement. Jeana Mendoza APRN.FACING MACHINE OPERATOR documented in this encounter [facility] 02-18-2023 Miscellaneous Notes Pt's daughter Amara calling in as she had to take her mom to the [facility] ER yesterday. She states pt has a hx of esophageal spasms and that is what the end dx was in the ER. Pt was having at home and got so anxious that she was having a panic attack and hyperventilating. When daughter go to her mom's house she wasn't sure what was happening so to be safe she took her to the ER where they dx it as esophageal spasms. Pt has taken Levsin in the past prescribed by Dr. Durbin. Daughter states these pills help but only has a couple of them left. Asking for refill. Appt with Jeana Mendoza on 02/19 at 340 pm for ER f/u. Patient has been identified by name and date of : Yes, Provider Dr. Julian Date 02/18/23 Time 1030 Daughter Amara phones for refill(s): Requested Prescriptions Pending Prescriptions Disp Refills hyoscyamine sublingual (LEVSIN SL) 0.125 mg 30 tablet 5 Sig: Dissolve 1 tablet under the tongue every 4 hours as needed. Date of last office visit in primary care: 12/13/22 Next OV 06/14/23 Last 2 Encounter Wt Readings: Date: Wt: 12/13/2022 62.4 kg (137 lb 9.6 oz) 07/12/2022 60.6 kg (133 lb 9.6 oz) Previous labs/tests for medication: Blood Pressure: BUN (mg/dL) Date Value 01/25/2023 26 04/19/2021 28 Sodium (mmol/L) Date Value 01/25/2023 141 04/19/2021 139 Last 1 Encounter BP Readings: Date: BP: 12/13/2022 118/54 Liver Function: ALT (U/L) Date Value 12/13/2022 19 03/31/2021 26 AST (U/L) Date Value 12/13/2022 22 03/31/2021 26 Please advise. Thank you. Jessica Persaud RN documented in this encounter [facility] 02-11-2023 Miscellaneous Notes Amara calls to request results of US Kidney/bladder. Reviewed Negative results. Amara verbalizes understanding. Jaylin Camacho RN documented in this encounter [facility] 01-31-2023 Note HNO ID: [id number] Author: Anamaria Giron RDMS Service: ? Author Type: Endoscopy Technician Type: Progress Notes Filed: 01/31/2023 10:30 AM Note Text: Radiology Service Progress Note PATIENT NAME: Shanel Felton DATE OF SERVICE: January 31, 2023 TIME: 10:30 AM PATIENT IDENTITY VERIFICATION COMPLETED USING TWO (2) IDENTIFIERS: Name and Date of confirmed by patient verbally. FALL SCREENING: Has the patient had 2 falls in the last year or 1 fall with injury or currently using an Ambulatory Assistive Device (Walker, Cane, Wheelchair, Crutches, etc.)? No PATIENT GENDER DATA: Female. status: : No status: NO. PATIENT RELEVANT IMPLANT DATA REVIEWED: Not Applicable RADIOLOGY DEPARTMENT: Ultrasound PERIPHERAL IV DATA: Not applicable SIGNED BY: Anamaria Giron RDMS January 31, 2023 10:30 AM [facility] 01-31-2023 History of Present illness Narrative Radiology Service Progress Note PATIENT NAME: Shanel Felton DATE OF SERVICE: January 31, 2023 TIME: 10:30 AM PATIENT IDENTITY VERIFICATION COMPLETED USING TWO (2) IDENTIFIERS: Name and Date of confirmed by patient verbally. FALL SCREENING: Has the patient had 2 falls in the last year or 1 fall with injury or currently using an Ambulatory Assistive Device (Walker, Cane, Wheelchair, Crutches, etc.)? No PATIENT GENDER DATA: Female. status: : No status: NO. PATIENT RELEVANT IMPLANT DATA REVIEWED: Not Applicable RADIOLOGY DEPARTMENT: Ultrasound PERIPHERAL IV DATA: Not applicable SIGNED BY: Anamaria Giron RDMS January 31, 2023 10:30 AM documented in this encounter [facility] 12-14-2022 Miscellaneous Notes Patient notified. Ginny Zacarias RN Labs are stable except kidney function is down a little. Can be due to hydration. Push fluids. Recheck bmp in two weeks. documented in this encounter [facility] 12-13-2022 Note HNO ID: [id number] Author: Kathie Julian MD Service: ? Author Type: Physician Type: Progress Notes Filed: 12/13/2022 4:09 PM Note Text: Patient presents with: Follow Up HPI: Patient presents today for office visit for follow up. HTN: Monitors BP at home Stable Denies chest pain and shortness of breath No headaches or dizziness No palpitations No syncope No edema DM: Monitors blood sugars Sugars have been high Watches diet closely and exercises daily No vision changes. Up to date on eye exam No foot lesions, numbness or pain. Follows podiatry prn. Discuss Januvia. Was on patient assistance in past however no longer qualifies. Requesting something cheaper. Paying over $700 a month. GERD: Taking Omeprazole. Symptoms controlled. HLD: No myalgias Still seeing Dr Mark. Still seeing urology. Psych:emotionally is doing well. Memory is still an issue. Her daughter is with her today.has had labs and MRI. Has seen neurology. Declines meds. MEDICATIONS: Current Outpatient Medications Medication Sig glimepiride (AMARYL) 1 mg tablet Take 1 tablet by mouth daily with breakfast. tolterodine ER (DETROL LA) 2 mg 24 hr capsule Take 1 capsule by mouth once daily. hydroCHLOROthiazide 12.5 mg capsule Take 1 capsule by mouth once daily. omeprazole (PRILOSEC) 20 mg capsule Take 1 capsule by mouth daily before breakfast. 1/2 hr before meal. meloxicam (MOBIC) 15 mg tablet Take 1 tablet by mouth once daily. With food. metFORMIN (GLUCOPHAGE) 1,000 mg tablet Take 1 tablet by mouth twice daily with meals. buPROPion XL (WELLBUTRIN XL) 150 mg 24 hr tablet Take 1 tablet by mouth once daily. oxyCODONE-Acetaminophen 2.5-325 mg per tablet TAKE 1 TABLET BY MOUTH EVERY 6 HOURS NEEDED FOR PAIN FOR 10 DAYS INS WILL NOT COVER blood sugar diagnostic (ACCU-CHEK GUILLERMINA) test strip Use twice a day as instructed. DX:E11.40 Insulin: No amLODIPine (NORVASC) 10 mg tablet Take 1 tablet by mouth once daily. Lactobacillus acidophilus (FLORAJEN ACIDOPHILUS) 20 billion cell cap Take 1 capsule by mouth once daily. FLUoxetine (PROZAC) 40 mg capsule Take 1 capsule by mouth once daily. atorvastatin (LIPITOR) 40 mg tablet Take 1 tablet by mouth once daily. valsartan (DIOVAN) 320 mg tablet Take 1 tablet by mouth once daily. blood sugar diagnostic (BLOOD GLUCOSE TEST) test strip Test blood suga(s) 2 times daily. Dx: Type 2 DM - Controlled E11.9 Insulin: No nystatin (NYSTOP) powder Apply 1 application to affected area twice daily. gabapentin (NEURONTIN) 300 mg capsule Take 2 capsules by mouth daily at bedtime for 180 days. Patient also takes one pill in the morning as needed ondansetron orally disintegrating (ZOFRAN ODT) 4 mg disintegrating tablet Take 1 tablet by mouth every 6 hours. meclizine (ANTIVERT) 12.5 mg tab Take 1 tablet by mouth every 6 hours as needed (dizziness). DETROL LA 2 mg 24 hr capsule Take 1 capsule by mouth once daily. Magnesium Oxide 250 mg tab Take by mouth daily at bedtime. Blood-Glucose Meter (ACCU-CHEK GUILLERMINA PLUS METER) misc Use daily as instructed. DX:E11.40 Insulin: No clobetasol (TEMOVATE) 0.05 % ointment Apply to the severely and persistently itching patch of rash and bumps of left upper back post shoulder area dermatitis once to twice per day as tolerated; AVOID face, eyes/eyelids, and all deep fold areas. Can use for up to 2-4 weeks on a particular area, but then stop or taper off as able (sooner if cleared). (Patient taking differently: as needed. Apply to the severely and persistently itching patch of rash and bumps of left upper back post shoulder area dermatitis once to twice per day as tolerated; AVOID face, eyes/eyelids, and all deep fold areas. Can use for up to 2-4 weeks on a particular area, but then stop or taper off as able (sooner if cleared).) hyoscyamine sublingual (LEVSIN SL) 0.125 mg subl Dissolve 1 tablet under the tongue every 4 hours as needed. Blood-Glucose Meter (ACCU-CHEK GUILLERMINA MONITORING) [facility] Kit USE DIRECTED No current facility-administered medications for this visit. ALLERGIES: ALLERGIES Allergen Reactions Codeine Anaphylaxis Ambien [Zolpidem Ta* Mental Status Change Hallucinations. Crab Unknown Cymbalta [Duloxetin* Other: See Comments Made blood sugar go up. Hallucinations Oxaprozin Prednisone Other: See Comments Hyperglycemia. Vicodin [Hydrocodon* Anaphylaxis Levaquin [Levofloxa* Intolerance Had joint pain. Hallucinations. 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 [facility] 12-13-2022 History of Present illness Narrative Patient presents with: Follow Up HPI: Patient presents today for office visit for follow up. HTN: Monitors BP at home Stable Denies chest pain and shortness of breath No headaches or dizziness No palpitations No syncope No edema DM: Monitors blood sugars Sugars have been high Watches diet closely and exercises daily No vision changes. Up to date on eye exam No foot lesions, numbness or pain. Follows podiatry prn. Discuss Januvia. Was on patient assistance in past however no longer qualifies. Requesting something cheaper. Paying over $700 a month. GERD: Taking Omeprazole. Symptoms controlled. HLD: No myalgias Still seeing Dr Mark. Still seeing urology. Psych:emotionally is doing well. Memory is still an issue. Her daughter is with her today.has had labs and MRI. Has seen neurology. Declines meds. MEDICATIONS: Current Outpatient Medications Medication Sig glimepiride (AMARYL) 1 mg tablet Take 1 tablet by mouth daily with breakfast. tolterodine ER (DETROL LA) 2 mg 24 hr capsule Take 1 capsule by mouth once daily. hydroCHLOROthiazide 12.5 mg capsule Take 1 capsule by mouth once daily. omeprazole (PRILOSEC) 20 mg capsule Take 1 capsule by mouth daily before breakfast. 1/2 hr before meal. meloxicam (MOBIC) 15 mg tablet Take 1 tablet by mouth once daily. With food. metFORMIN (GLUCOPHAGE) 1,000 mg tablet Take 1 tablet by mouth twice daily with meals. buPROPion XL (WELLBUTRIN XL) 150 mg 24 hr tablet Take 1 tablet by mouth once daily. oxyCODONE-Acetaminophen 2.5-325 mg per tablet TAKE 1 TABLET BY MOUTH EVERY 6 HOURS NEEDED FOR PAIN FOR 10 DAYS INS WILL NOT COVER blood sugar diagnostic (ACCU-CHEK GUILLERMINA) test strip Use twice a day as instructed. DX:E11.40 Insulin: No amLODIPine (NORVASC) 10 mg tablet Take 1 tablet by mouth once daily. Lactobacillus acidophilus (FLORAJEN ACIDOPHILUS) 20 billion cell cap Take 1 capsule by mouth once daily. FLUoxetine (PROZAC) 40 mg capsule Take 1 capsule by mouth once daily. atorvastatin (LIPITOR) 40 mg tablet Take 1 tablet by mouth once daily. valsartan (DIOVAN) 320 mg tablet Take 1 tablet by mouth once daily. blood sugar diagnostic (BLOOD GLUCOSE TEST) test strip Test blood suga(s) 2 times daily. Dx: Type 2 DM - Controlled E11.9 Insulin: No nystatin (NYSTOP) powder Apply 1 application to affected area twice daily. gabapentin (NEURONTIN) 300 mg capsule Take 2 capsules by mouth daily at bedtime for 180 days. Patient also takes one pill in the morning as needed ondansetron orally disintegrating (ZOFRAN ODT) 4 mg disintegrating tablet Take 1 tablet by mouth every 6 hours. meclizine (ANTIVERT) 12.5 mg tab Take 1 tablet by mouth every 6 hours as needed (dizziness). DETROL LA 2 mg 24 hr capsule Take 1 capsule by mouth once daily. Magnesium Oxide 250 mg tab Take by mouth daily at bedtime. Blood-Glucose Meter (ACCU-CHEK GUILLERMINA PLUS METER) misc Use daily as instructed. DX:E11.40 Insulin: No clobetasol (TEMOVATE) 0.05 % ointment Apply to the severely and persistently itching patch of rash and bumps of left upper back post shoulder area dermatitis once to twice per day as tolerated; AVOID face, eyes/eyelids, and all deep fold areas. Can use for up to 2-4 weeks on a particular area, but then stop or taper off as able (sooner if cleared). (Patient taking differently: as needed. Apply to the severely and persistently itching patch of rash and bumps of left upper back post shoulder area dermatitis once to twice per day as tolerated; AVOID face, eyes/eyelids, and all deep fold areas. Can use for up to 2-4 weeks on a particular area, but then stop or taper off as able (sooner if cleared).) hyoscyamine sublingual (LEVSIN SL) 0.125 mg subl Dissolve 1 tablet under the tongue every 4 hours as needed. Blood-Glucose Meter (ACCU-CHEK GUILLERMINA MONITORING) [facility] Kit USE DIRECTED No current facility-administered medications for this visit. ALLERGIES: ALLERGIES Allergen Reactions Codeine Anaphylaxis Ambien [Zolpidem Ta* Mental Status Change Hallucinations. Crab Unknown Cymbalta [Duloxetin* Other: See Comments Made blood sugar go up. Hallucinations Oxaprozin Prednisone Other: See Comments Hyperglycemia. Vicodin [Hydrocodon* Anaphylaxis Levaquin [Levofloxa* Intolerance Had joint pain. Hallucinations. 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) PONV (postoperative nausea and vomiting) 06/24/2017 Pure hypercholesterolemia Retinal break of right eye 2016 Type II or unspecified type diabetes mellitus without mention of complication, not stated as uncontrolled PAST SURGICAL HISTORY Procedure Laterality Date ARTHROSCOPY KNEE DIAGNOSTIC W/WO SYNOVIAL BX SPX Right 03/2005 Arthroscopy, knee ARTHRP INTERPOS INTERCARPAL/METACARPAL JOINTS Right 08/27/2018 Right thumb CMC arthroplasty with LRTI, palmaris longes and Right carpal tunnel release ARTHRP KNE CONDYLE&PLATU MEDIAL&LAT COMPARTMENTS Right 07/10/2017 Knee replacement, total DELIVERY ONLY 08/04/1963 , low transverse DELIVERY ONLY 03/02/1972 , low transverse CHOLECYSTOSTOMY PRQ W/IMAGING & CATHETER PLMT 1991 COLONOSCOPY FLX DX W/COLLJ SPEC WHEN PFRMD 08/22/2011 Colonoscopy LAMINECTOMY W/O FFD 1/2 VERT SEG LUMBAR 01/2004 removal of blood clot at site LAMINECTOMY,LUMBAR Left 03/26/2022 L3-[address] Fam medial facetectomy LAPAROSCOPY SURG CHOLECYSTECTOMY 1996 PAST SURGICAL HISTORY OF Right 2017 cataract surgery PAST SURGICAL HISTORY OF Right 2016 Macular hole repair TOTAL ABDOMINAL HYSTERECT W/WO RMVL TUBE OVARY 1987 fibroid TX ECTOPIC ABDOMINAL/VAGINAL APPR 1967 FAMILY HISTORY Problem Relation Age of Onset Arthritis Mother Hypertension Father Stroke Father Diabetes Father at 71 of diabetes Heart Father [place] Arthritis Maternal Grandmother other (Other) Maternal Grandmother parkinsons other (Other) Brother sarcoid other (Other. GB resection.) Daughter Social History Tobacco Use Smoking status: Former Packs/day: 0.30 Years: 12.00 Pack years: 3.60 Types: Cigarettes Start date: 06/14/1959 Quit date: 01/30/1971 Years since quittin.9 Smokeless tobacco: Never Tobacco comments: Parents smoked in childhood home. Spouse non-smoker. Substance Use Topics Alcohol use: No Drug use: No Reviewed current medications, allergies, past medical history, surgical history, family history and social history today. REVIEW OF SYSTEMS All other reviewed and negative other than HPI. HEALTH MAINTENANCE: Reviewed health maintenance issues today and recommended the following in detail. SHINGRIX VACCINE(2 of 3) due on 07/14/2009 COVID-19 VACCINE(3 - Booster for Moderna series) due on 11/04/2020 DIABETIC FOOT EXAM due on 07/12/2022 ADVANCE DIRECTIVE DISCUSSION - on file. DEPRESSION ASSESSMENT Never done DILATED RETINAL EXAM has an appt next week. URINE ALBUMIN:CREATININE RATIO due on 01/10/2023 LDL CHOLESTEROL due on 01/10/2023 VITALS: BP 118/54 Pulse 69 Ht 162.6 cm (5' 4 ) Wt 62.4 kg (137 lb 9.6 oz) SpO2 96% BMI 23.62 kg/m Last 4 Encounter Wt Readings: Date: Wt: 12/13/2022 62.4 kg (137 lb 9.6 oz) 07/12/2022 60.6 kg (133 lb 9.6 oz) 03/22/2022 60.8 kg (134 lb) 02/16/2022 59.9 kg (132 lb) PHYSICAL EXAMINATION: General appearance: Well appearing, alert, in no acute distress, well-hydrated, well nourished. Skin: Skin color, texture, turgor normal, no suspicious rashes or lesions Head: Normocephalic, no masses, lesions, tenderness or abnormalities Lungs: Lungs clear to auscultation. No wheezing, rhonchi, rales Heart: RRR, soft systolic murmur Abdomen: Normal abdominal exam, Abdomen soft, non-tender. Bowel sounds normal. No masses, organomegaly Extremities: No deformities, edema, skin discoloration, clubbing or cyanosis. Good capillary refill. Musculoskeletal: No joint swelling, deformity, or tenderness ASSESSMENT/PLAN: 1. Radiculopathy, lumbar region - ICD9: 724.4, ICD10: M54.16 (primary diagnosis) - per radiculopathy 2. Depression, unspecified depression type - ICD9: 311, ICD10: F32.A - continue meds. - FLUOXETINE 40 MG CAPSULE 3. Essential hypertension, benign - ICD9: 401.1, ICD10: I10 - Controlled - Continue current medications - Recommend regular aerobic exercise - AMLODIPINE 10 MG TABLET - HYDROCHLOROTHIAZIDE 12.5 MG CAPSULE 4. 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 Right carpal tunnel syndrome - ICD9: 354.0, ICD10: G56.01 - stable 6. Pure hypercholesterolemia - ICD9: 272.0, ICD10: E78.00 - follow labs. 7. Malignant neoplasm of overlapping sites of bladder (HCC) - ICD9: 188.8, ICD10: C67.8 - per Dr Mark 8. Displacement of lumbar intervertebral disc without myelopathy - ICD9: 722.10, ICD10: M51.26 - per pain management 9. Primary osteoarthritis of first carpometacarpal joint of right hand - ICD9: 715.14, ICD10: M18.11 - stable 10. Dementia without behavioral disturbance, psychotic disturbance, mood disturbance, or anxiety, unspecified dementia severity, unspecified dementia type (HCC) - ICD9: 294.20, ICD10: F03.90 - declines meds. Kathie Julian RTO in six months and prn. documented in this encounter [facility] 10-18-2022 Miscellaneous Notes Patient was notified Honey Means Ma Readd amaril once a day. Call sugars in two weeks Patient returns call and reports that blood sugars have been up for patient since starting on oxycodone. Yesterday readings were 177, 161, and 133. FBS at time of phone call was 150. Patient reports d/t cost of Januvia she won't be able to afford it monthly. Jaylin Camacho RN Placed call to patients daughter and patient. No answer at either number. Left VM on patients daughter phone advising her return call with sugar readings. Unable to leave message on patient phone. Lizeth Washington Check with Shanel how her sugars have been running., if cannot get assistance, we may have to change meds. Patient daughter called Sw and let Sw know that patient received message from [employer] that she was over income for help with Januvia assistance. Sw reviewed income that patient reported last year and now this year. There was a change in income and patient daughter notes that patient has a pension that she does not always remember that she has at times. So now, this has placed patient over income for assistance. documented in this encounter [facility] 10-12-2022 Miscellaneous Notes Patient said she didn't realize she didn't have any refills left on this rx. She is completely out of medication and wants to know if rx can be sent today. Patient has been identified by name and date of : Yes Requested Prescriptions Pending Prescriptions Disp Refills tolterodine ER (DETROL LA) 2 mg 24 hr capsule 90 capsule 1 Sig: Take 1 capsule by mouth once daily. RX INSTRUCTIONS: Patient aware RX will be sent to pharmacy. No need to notify patient. Taylor Marin Pss documented in this encounter [facility] 10-09-2022 Miscellaneous Notes Patient phones requesting refills as follows: Requested Prescriptions Pending Prescriptions Disp Refills hydroCHLOROthiazide 12.5 mg capsule 30 capsule 12 Sig: Take 1 capsule by mouth once daily. omeprazole (PRILOSEC) 20 mg capsule 30 capsule 5 Sig: Take 1 capsule by mouth daily before breakfast. 1/2 hr before meal. MARLENA 07/12/22 NOV 12/13/22 Please review and advise. Caydne Patterson LPN documented in this encounter [facility] 10-03-2022 Miscellaneous Notes Application mailed to [employer]. Copy sent to scanning. done Application on desk to sign. Patient and daughter stopped in with patient income statements. Figured up patient income and noted on forms. will take forms to Dr. Julian office for Januvia prescription completion. Sw spoke with patient as Sw has not received income information for [employer] PAP forms. Patient notes that she thought daughter was going to drop off income. Sw notes that she has not received income documentation. Patient reports that she is going to see daughter today and will see when she is planning on dropping off income to and will let SW know. Sw received [employer] application with consent for release form for [employer] application for Januvia. Patient [employer] forms did not have gross income written on forms. There was an envelope with different figures noted on envelope. No income documentation attached. Patient notes that she thought that daughter had attached tax forms to application when she dropped forms off. Sw does not have tax forms. Patient notes that she will call daughter and ask her to drop off tax form to to be able to address yearly income on application. Patient spoke with Sw and noted that she received [employer] P[employer] forms and have completed forms for her Januvia. Patient notes that her daughter will drop off forms to . documented in this encounter [facility] 09-21-2022 Miscellaneous Notes Faxing as requested. Sw checked with [facility] regarding [facility] Fax. The rep said that the fax number is [phone]. Sw will send to OSITO Cruz to see about refaxing patient Januvia prescription. documented in this encounter [facility] 09-19-2022 Miscellaneous Notes Script faxed as requested. Printed. Patient called Sw regarding refill through [facility] PAP. Patient notes that she called [facility] and they need a new prescription for Januvia refill to be processed. Sw notes that she will check with [facility] to see where prescription needs to be sent and about yearly application. [facility] needs new Januvia prescription faxed to them. Patient is able then to have refill on current PAP application. Patient is in need of applying to [employer] P[employer] as application will 09/27/22. Please fax Januvia prescription to [facility] fax#[phone]. Sw will also assist patient with applying again to [employer] and mail application along with consent for release form to patient home. documented in this encounter [facility] 09-11-2022 Miscellaneous Notes Patient has been identified by name and date of : Yes Requested Prescriptions Pending Prescriptions Disp Refills meloxicam (MOBIC) 15 mg tablet 30 tablet 5 Sig: Take 1 tablet by mouth once daily. With food. RX INSTRUCTIONS: Patient aware RX will be sent to pharmacy. No need to notify patient. MARLENA 07/12/22 NOV 12/13/22 Bee Patino MA Patient is requesting a script for Mobic [facility] [place] if PCP is still wanting her to take this. documented in this encounter [facility] 08-31-2022 Miscellaneous Notes Pt returned call. Message from Mook schmidt Left message for patient to return call. Amara Moreira Ma No FH. Yes, she can stop . Thanks, Mook Lee PA-C Patient calling to ask if she needs to continue having mamm done yearly? Patient received her reminder letter, last mamm was done 09/12/2021. Pending order if needed. Patient said to call her if still needing to have mamm done, to get appt scheduled. Please advise documented in this encounter [facility] 08-20-2022 Miscellaneous Notes Spoke with patient. Informed and verbalized understanding. States she wasn't feeling the greatest for a couple weeks and was in a lot of pain. Wasn't being too cautious with her diet in this time but states her pain is under control now and she's feeling much better and things are looking up. She will watch her diet more closely. Lizeth Washington Attempted to contact patient at both numbers. No answer at each number. Unable to leave message at this time. Please try to contact patient again. Thank you. Can please let patient know that we received her lab results. er A1C crept up a little bit to 7.4. Please try to watch diet. Please work on diabetic diet, by eating less sugar, bread, potato, pasta, rice, corn, corn syrup. Jeana Mendoza APRN.FACING MACHINE OPERATOR documented in this encounter [facility] 07-30-2022 Miscellaneous Notes Patient has been identified by name and date of : Yes, Provider Eliel Date 07/30 Time 1530 Patient phones for refill(s): Requested Prescriptions Pending Prescriptions Disp Refills metFORMIN (GLUCOPHAGE) 1,000 mg tablet 180 tablet 0 Sig: Take 1 tablet by mouth twice daily with meals. Date of last office visit with pcp: 07/12/22 Date of last office visit in primary care: Last 2 Encounter Wt Readings: Date: Wt: 07/12/2022 60.6 kg (133 lb 9.6 oz) 03/22/2022 60.8 kg (134 lb) Previous labs/tests for medication: Diabetes: Hemoglobin A1C (%) Date Value 04/16/2022 7.2 01/10/2022 7.7 03/27/2021 7.1 10/04/2020 7.2 Please advise. Thank you. Tamiko Rosario RN documented in this encounter [facility] 07-19-2022 Miscellaneous Notes Patient calling pharmacy is telling her provider will not respond to request for rx renewal. Patient said she still has about 30 pills left, she gets 90 day rx. Pending rx to file to pharmacy. Please advise Patient has been identified by name and date of : Patient phones for refill(s): Requested Prescriptions Pending Prescriptions Disp Refills buPROPion XL (WELLBUTRIN XL) 150 mg 24 hr tablet 90 tablet 1 Sig: Take 1 tablet by mouth once daily. Date of last office visit in primary care: 07/12/2022, has appt 12/13/2022 Last 2 Encounter Wt Readings: Date: Wt: 07/12/2022 60.6 kg (133 lb 9.6 oz) 03/22/2022 60.8 kg (134 lb) Previous labs/tests for medication: Not applicable Please advise. Thank you. Graciela Tello LPN documented in this encounter [facility] 07-12-2022 History of Present illness Narrative Patient presents with: Follow Up: 6 month HPI: Patient presents today for office visit for follow up. Continues to see Dr. Mark and Dr. Fam. They are discussing a spinal stimulator. We are six months out from her surgery. Using oxycodone. HYPERTENSION:has been good at home. No chest pain or shortness of breath. Is out of amlodipine today. Her family will check the bp in one month and call with numbers. DM:occasionally checking sugars. Have been ok. Has been riding he bike daily. HLD:no issues with cholesterol. Psych:emotionally is doing well. Still following with urology. MEDICATIONS: Current Outpatient Medications Medication Sig oxyCODONE-Acetaminophen 2.5-325 mg per tablet TAKE 1 TABLET BY MOUTH EVERY 6 HOURS NEEDED FOR PAIN FOR 10 DAYS INS WILL NOT COVER amLODIPine (NORVASC) 10 mg tablet Take 1 tablet by mouth once daily. FLUoxetine (PROZAC) 40 mg capsule Take 1 capsule by mouth once daily. metFORMIN (GLUCOPHAGE) 1,000 mg tablet Take 1 tablet by mouth twice daily with meals. meloxicam (MOBIC) 15 mg tablet Take 1 tablet by mouth once daily. With food. atorvastatin (LIPITOR) 40 mg tablet Take 1 tablet by mouth once daily. tolterodine ER (DETROL LA) 2 mg 24 hr capsule Take 1 capsule by mouth once daily. buPROPion XL (WELLBUTRIN XL) 150 mg 24 hr tablet Take 1 tablet by mouth once daily. valsartan (DIOVAN) 320 mg tablet Take 1 tablet by mouth once daily. blood sugar diagnostic (BLOOD GLUCOSE TEST) test strip Test blood suga(s) 2 times daily. Dx: Type 2 DM - Controlled E11.9 Insulin: No hydroCHLOROthiazide 12.5 mg capsule Take 1 capsule by mouth once daily. nystatin (NYSTOP) powder Apply 1 application to affected area twice daily. ondansetron orally disintegrating (ZOFRAN ODT) 4 mg disintegrating tablet Take 1 tablet by mouth every 6 hours. meclizine (ANTIVERT) 12.5 mg tab Take 1 tablet by mouth every 6 hours as needed (dizziness). DETROL LA 2 mg 24 hr capsule Take 1 capsule by mouth once daily. blood sugar diagnostic (ACCU-CHEK GUILLERMINA) test strip Use twice a day as instructed. DX:E11.40 Insulin: No Magnesium Oxide 250 mg tab Take by mouth daily at bedtime. Blood-Glucose Meter (ACCU-CHEK GUILLERMINA PLUS METER) [facility] Use daily as instructed. DX:E11.40 Insulin: No hyoscyamine sublingual (LEVSIN SL) 0.125 mg subl Dissolve 1 tablet under the tongue every 4 hours as needed. Blood-Glucose Meter (ACCU-CHEK GUILLERMINA MONITORING) Misc Kit USE DIRECTED SITagliptin (JANUVIA) 100 mg tablet Take 1 tablet by mouth once daily for 14 days. omeprazole (PRILOSEC) 20 mg capsule Take 1 capsule by mouth daily before breakfast. 1/2 hr before meal. traMADol (ULTRAM) 50 mg tablet Take 50 mg by mouth every 6 hours as needed for pain. (Patient not taking: Reported on 07/12/2022) benzonatate (TESSALON PERLES) 100 mg capsule Take 1 capsule by mouth three times daily as needed for cough. (Patient not taking: Reported on 07/12/2022) gabapentin (NEURONTIN) 300 mg capsule Take 2 capsules by mouth daily at bedtime for 180 days. Patient also takes one pill in the morning as needed clobetasol (TEMOVATE) 0.05 % ointment Apply to the severely and persistently itching patch of rash and bumps of left upper back post shoulder area dermatitis once to twice per day as tolerated; AVOID face, eyes/eyelids, and all deep fold areas. Can use for up to 2-4 weeks on a particular area, but then stop or taper off as able (sooner if cleared). (Patient taking differently: as needed. Apply to the severely and persistently itching patch of rash and bumps of left upper back post shoulder area dermatitis once to twice per day as tolerated; AVOID face, eyes/eyelids, and all deep fold areas. Can use for up to 2-4 weeks on a particular area, but then stop or taper off as able (sooner if cleared). ) No current facility-administered medications for this visit. ALLERGIES: ALLERGIES Allergen Reactions Codeine Anaphylaxis Ambien [Zolpidem Ta* Mental Status Change Hallucinations. Crab Unknown Cymbalta [Duloxetin* Other: See Comments Made blood sugar go up. Hallucinations Oxaprozin Prednisone Other: See Comments Hyperglycemia. Vicodin [Hydrocodon* Anaphylaxis Levaquin [Levofloxa* Intolerance Had joint pain. Hallucinations. 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) PONV (postoperative nausea and vomiting) 06/24/2017 Pure hypercholesterolemia Retinal break of right eye 2015 Type II or unspecified type diabetes mellitus without mention of complication, not stated as uncontrolled PAST SURGICAL HISTORY Procedure Laterality Date ARTHROSCOPY KNEE DIAGNOSTIC W/WO SYNOVIAL BX SPX Right 03/2005 Arthroscopy, knee ARTHRP INTERPOS INTERCARPAL/METACARPAL JOINTS Right 08/27/2018 Right thumb CMC arthroplasty with LRTI, palmaris longes and Right carpal tunnel release ARTHRP KNE CONDYLE&PLATU MEDIAL&LAT COMPARTMENTS Right 07/10/2017 Knee replacement, total DELIVERY ONLY 08/04/1963 , low transverse DELIVERY ONLY 03/02/1972 , low transverse CHOLECYSTOSTOMY PRQ W/IMAGING & CATHETER PLMT 1991 COLONOSCOPY FLX DX W/COLLJ SPEC WHEN PFRMD 08/22/2011 Colonoscopy LAMINECTOMY W/O FFD 07/16 VERT SEG LUMBAR 01/2004 removal of blood clot at site LAMINECTOMY,LUMBAR Left 03/26/2022 L3-[address] Fam medial facetectomy LAPAROSCOPY SURG CHOLECYSTECTOMY 1996 PAST SURGICAL HISTORY OF Right 2017 cataract surgery PAST SURGICAL HISTORY OF Right 2016 Macular hole repair TOTAL ABDOMINAL HYSTERECT W/WO RMVL TUBE OVARY 1987 fibroid TX ECTOPIC ABDOMINAL/VAGINAL APPR 1967 FAMILY HISTORY Problem Relation Age of Onset Arthritis Mother Hypertension Father Stroke Father Diabetes Father at 71 of diabetes Heart Father LA Arthritis Maternal Grandmother other (Other) Maternal Grandmother parkinsons other (Other) Brother sarcoid other (Other. GB resection.) Daughter Social History Tobacco Use Smoking status: Former Packs/day: 0.30 Years: 12.00 Pack years: 3.60 Types: Cigarettes Start date: 06/14/1959 Quit date: 01/30/1971 Years since quittin.4 Smokeless tobacco: Never Tobacco comments: Parents smoked in childhood home. Spouse non-smoker. Substance Use Topics Alcohol use: No Drug use: No Reviewed current medications, allergies, past medical history, surgical history, family history and social history today. REVIEW OF SYSTEMS All other reviewed and negative other than HPI. HEALTH MAINTENANCE: Reviewed health maintenance issues today and recommended the following in detail. COVID-19 VACCINE(3 - Booster for Moderna series) due on 11/04/2020 DEPRESSION ASSESSMENT Never done INFLUENZA-had done. VITALS: BP 144/66 (BP Site: Right Arm, BP Position: Sitting) Pulse 66 Resp 20 Wt 60.6 kg (133 lb 9.6 oz) SpO2 97% BMI 22.93 kg/m Last 4 Encounter Wt Readings: Date: Wt: 07/12/2022 60.6 kg (133 lb 9.6 oz) 03/22/2022 60.8 kg (134 lb) 02/16/2022 59.9 kg (132 lb) 01/18/2022 61.7 kg (136 lb) PHYSICAL EXAMINATION: General appearance: Well appearing, alert, in no acute distress, well-hydrated, well nourished. Skin: Skin color, texture, turgor normal, no suspicious rashes or lesions Head: Normocephalic, no masses, lesions, tenderness or abnormalities Neck: Supple, no adenopathy; thyroid symmetric, normal size, no bruits Back: Normal exam Lungs: Lungs clear to auscultation. No wheezing, rhonchi, rales Heart: RRR without murmur, gallop, or rubs. No ectopy Abdomen: Normal abdominal exam, Abdomen soft, non-tender. Bowel sounds normal. No masses, organomegaly Extremities: No deformities, edema, skin discoloration, clubbing or cyanosis. Good capillary refill. Musculoskeletal: No joint swelling, deformity, or tenderness ASSESSMENT/PLAN: 1. Pure hypercholesterolemia - ICD9: 272.0, ICD10: E78.00 (primary diagnosis) - stable. 2. 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 - Continue current medications - BLOOD SUGAR DIAGNOSTIC STRIPS - BASIC METABOLIC PNL - HGB A1C 3. Essential hypertension, benign - ICD9: 401.1, ICD10: I10 - good control - Goal of BP <130/80 - AMLODIPINE 10 MG TABLET 4. Malignant neoplasm of overlapping sites of bladder (HCC) - ICD9: 188.8, ICD10: C67.8 - stable. 5. Displacement of lumbar intervertebral disc without myelopathy - ICD9: 722.10, ICD10: M51.26 - as above. Per pain management. 6. Postlaminectomy syndrome, lumbar region - ICD9: 722.83, ICD10: M96.1 7. Microalbuminuria - ICD9: 791.0, ICD10: R80.9 - will follow. Kathie Julian RTO in six months and prn. documented in this encounter [facility] 06-06-2022 Miscellaneous Notes MARLENA 03/22/2022 Appointment scheduled 07/12/2022 Please advise. Thank you. KELVIN Elizondo Patient has been identified by name and date of : Yes Patient phones for refill(s): Requested Prescriptions Pending Prescriptions Disp Refills amLODIPine (NORVASC) 10 mg tablet 90 tablet 3 Sig: Take 1 tablet by mouth once daily. metFORMIN (GLUCOPHAGE) 1,000 mg tablet 180 tablet 0 Sig: Take 1 tablet by mouth twice daily with meals. Date of last office visit in primary care: 03/22/22 Last 2 Encounter Wt Readings: Date: Wt: 03/22/2022 60.8 kg (134 lb) 02/16/2022 59.9 kg (132 lb) Previous labs/tests for medication: Not applicable Please advise. Thank you. Shawna Roberts documented in this encounter [facility] 05-24-2022 Miscellaneous Notes Pt calling and states if she needs to continue medication below she will need a refill called. CHELLE Johnson will mail it to her. Please advise pt. Maggi Gonzalez [facility] Patient has been identified by name and date of : Yes Patient phones for refill(s): Requested Prescriptions Pending Prescriptions Disp Refills FLUoxetine (PROZAC) 40 mg capsule 90 capsule 1 Sig: Take 1 capsule by mouth once daily. Date of last office visit in primary care: 03/22/22 next apt 07/12/22 Last 2 Encounter Wt Readings: Date: Wt: 03/22/2022 60.8 kg (134 lb) 02/16/2022 59.9 kg (132 lb) Previous labs/tests for medication: Not applicable Thank you. Maggi Gonzalez LPN documented in this encounter [facility] 05-03-2022 Miscellaneous Notes Patient [facility] and she is eligible for refill on her Januvia on 06/18/22. Patient notes that she will contact [facility] at that time to request refill. Patient thanked David for assistance. Patient reports that she is getting low on her Januvia. She has number for [facility] and will call to see when she is eligible for refill on Januvia. Sw noted that she would check with [employer] and see when patient needs to complete new yearly application. Sw will let patient know what she learns from [employer]. Sw received message from patient requesting SW call her to discuss prescription assistance needs. Sw noted that she would reach out to patient tomorrow 05/03 @10am. documented in this encounter [facility] 04-24-2022 Miscellaneous Notes Patient has been identified by name and date of : Yes Patient phones for refill(s): Requested Prescriptions Pending Prescriptions Disp Refills metFORMIN (GLUCOPHAGE) 1,000 mg tablet 180 tablet 0 Sig: Take 1 tablet by mouth twice daily with meals. Date of last office visit in primary care: 04/21/2022 6 month follow-up: 07/12/2022 Last 2 Encounter Wt Readings: Date: Wt: 03/22/2022 60.8 kg (134 lb) 02/16/2022 59.9 kg (132 lb) Previous labs/tests for medication: Diabetes: Hemoglobin A1C (%) Date Value 04/16/2022 7.2 01/10/2022 7.7 03/27/2021 7.1 10/04/2020 7.2 Please advise. Thank you. Rocio Tran LPN documented in this encounter [facility] 04-05-2022 Miscellaneous Notes ok Katie BOYD calling from [facility] to report plan of care for patient and Physical Therapy will visit patient 1 time a week for first week and 2 times a week for 4 weeks. Physical therapy will work with patient on Strengthening, Pain Management, and Gait/Transfer Safety. No Call Back needed. hPam Clemente RN documented in this encounter [facility] 04-03-2022 Miscellaneous Notes Liliam notified. Cayden Patterson LPN Yes Liliam from [facility] calls and states that patient is being discharged from [facility] on 04/04/2022 with the diagnosis of Laminectomy L3-L4 . Liliam asking if provider willing to follow patient with orders for Physical Therapy? If agreeable please give Liliam a call back . Thank you, Pham Clemente RN documented in this encounter [facility] 03-23-2022 Miscellaneous Notes Daughter was here picked up splint. Spoke with her about care of fracture. Spoke with pt 's daughter and information listed below given. Pt 's daughter verbalizes understanding. Daughter will machine pecan picker down stairs. Please advise if this is not okay. Maggi Gonzalez LPN Reviewed with ortho can use splint for comfort. Follow up not needed unless patient not feeling better over time. Left message for daughter to call office. Spoke with ortho and they will contact office back. Could they see her today? Spoke to daughter Zachary. Problem with seeing ortho? Patient is going to be in TCU 1-[address] Fam. She has a thumb fracture although it is a month old. Do we have a thumb spica splint we can give her and send her over to see Alex lopez. documented in this encounter [facility] 03-22-2022 Miscellaneous Notes OV faxed See ov Dasia with Dr. Fam's office called to check on medical clearance for surgery on Saturday03-26-22. I let her know pt it having a pre op clearance apt today. She is asking to have everything faxed to [phone]. If there is any problems please call [phone]. Maggi Gonzalez LPN documented in this encounter [facility] 03-21-2022 Miscellaneous Notes TC to pt, she states surgery is scheduled for next Saturday (03/26). Appt scheduled for tomorrow (03/22) @ 4:20 with PCP. She is complicated enough, I would prefer to do a preop visit. Received fax from [facility] requesting medical clearance letter and any other pertinent information for patient to proceed with a repeat laminectomy L3-4 left side. They did not fax any type of form to be signed. Ok for letter? Advise. Lizeth Washington documented in this encounter [facility] 03-12-2022 Miscellaneous Notes Shanel is asking for a 90 script for all of the medication. Pharmacy verified in [facility] Patient has been identified by name and date of : Yes Patient aware RX will be sent to pharmacy. No need to notify patient. Patient phones for refill(s): Requested Prescriptions Pending Prescriptions Disp Refills meloxicam (MOBIC) 15 mg tablet Sig: Take 1 tablet by mouth once daily. With food. atorvastatin (LIPITOR) 40 mg tablet 90 tablet 1 Sig: Take 1 tablet by mouth once daily. tolterodine ER (DETROL LA) 2 mg 24 hr capsule 90 capsule 1 Sig: Take 1 capsule by mouth once daily. buPROPion XL (WELLBUTRIN XL) 150 mg 24 hr tablet Sig: Take 1 tablet by mouth once daily. Date of last office visit : 02/16/2022 Date of next office visit : 07/12/2022 Last 2 Encounter Wt Readings: Date: Wt: 02/16/2022 59.9 kg (132 lb) 01/18/2022 61.7 kg (136 lb) Please advise. Katie Velasquez Pss documented in this encounter [facility] 03-06-2022 Miscellaneous Notes 2 week supply sent. Jeana Mendoza APRN.[facility] [place] spoke with patient and she reports that she did call [facility] Patient Assistance program for Januvia. Patient reports that the automated message stated that prescription refill was now in process. Patient notes that [facility] did not mention how long it would take before prescription would be sent to patient. Patient is asking for 2 week prescription of Januvia to be sent to [facility]. Patient is asking for this request to be sent to [place]. We can send in another refill. I am not sure what pharmacy she is describing. If needs refilled, send back to Jeana/[facility] since I am out of the office. Patient called DAVID to ask what she should do as she thought she had one more bottle of Januvia, but that turned out to be another medication. Sw noted on SW 10/11/21 note that patient would need to call [facility] to request Januvia refill. Patient notes that she will tell [facility] that she is out of medication and see what they say about sending her refill and time frame. Sw noted that she will send note to Dr. Julian for any recommendations he may have. Typically, patient assistance companies take 5-10 days for shipping. Patient hopes if she explains that she is out of medication that they can expediate order. Patient notes that she will let know what she finds out from [facility]. documented in this encounter [facility] 02-16-2022 History of Present illness Narrative This is a 81 year old female who presents today with: Patient presents with: Wheelchair Evaluation HISTORY OF PRESENT ILLNESS: Shanel Felton is a 81 year old female. Patient presents with: Wheelchair Evaluation Pt presents today for mobility device evaluation. Presents with daughter. Family is concerned about her ability to navigate in her home. Refers even to walk into her kitchen is difficult. Pt has chronic lower back pain. She has radicular symptoms in the LLE resulting in pain and weakness which has affected her ability to be mobile and independently function in her home. Home is one floor. Two little steps to get into the home. Refers the home is large and there is room to use mobilized wheelchair. She has been using a cane and walker in the home. She has been sleeping in the living room. But she would use a motorized/wheelchair to get to the bathroom. She reports that the left leg does give out on her resulting in several falls. Refers symptoms have worsened over the last couple of years. Refers that she has been following with pain management. She has been receiving injections into her lower back. She has an upcoming appointment with ortho next Saturday -- Dr. Dunn. Discussed the different possibilities for mobility devices. Patient and daughter report that they do not feel that she would be able to have the dexterity to use her arms to mobilize a wheelchair. This would exacerbate her back pain. In addition, she has weakness in her hands, as well as an old torn left rotator cuff which results in shoulder pain. Not driving any longer. They also feel that this would help with mood. She currently is unable to really leave her home. Her daughter lives three blocks away, but patient reports that she cannot even ambulate across her yard d/t the pain and weakness in her back and leg. If she could increase her mobility, she would be able to participate in more activities outside the home. 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) PONV (postoperative nausea and vomiting) 06/24/2017 Pure hypercholesterolemia Retinal break of right eye 2016 Type II or unspecified type diabetes mellitus without mention of complication, not stated as uncontrolled PAST SURGICAL HISTORY Procedure Laterality Date ARTHROSCOPY KNEE DIAGNOSTIC W/WO SYNOVIAL BX SPX Right 03/2005 Arthroscopy, knee ARTHRP INTERPOS INTERCARPAL/METACARPAL JOINTS Right 08/27/2018 Right thumb CMC arthroplasty with LRTI, palmaris longes and Right carpal tunnel release ARTHRP KNE CONDYLE&PLATU MEDIAL&LAT COMPARTMENTS Right 07/10/2017 Knee replacement, total DELIVERY ONLY 08/04/1963 , low transverse DELIVERY ONLY 03/02/1972 , low transverse CHOLECYSTOSTOMY PRQ W/IMAGING & CATHETER PLMT 1991 COLONOSCOPY FLX DX W/COLLJ SPEC WHEN PFRMD 08/22/2011 Colonoscopy LAMINECTOMY W/O FFD 07/16 VERT SEG LUMBAR 01/2004 removal of blood clot at site LAPAROSCOPY SURG CHOLECYSTECTOMY 1996 PAST SURGICAL HISTORY OF Right 2017 cataract surgery PAST SURGICAL HISTORY OF Right 2016 Macular hole repair TOTAL ABDOMINAL HYSTERECT W/WO RMVL TUBE OVARY 1987 fibroid TX ECTOPIC ABDOMINAL/VAGINAL APPR 1966 ALLERGIES Codeine, Ambien [Zolpidem Tartrate], Crab, Cymbalta [Duloxetine], Oxaprozin, Prednisone, Vicodin [Hydrocodone-Acetaminophen], and Levaquin [Levofloxacin] MEDICATIONS Current Outpatient Medications Medication Sig omeprazole (PRILOSEC) 20 mg capsule Take 1 capsule by mouth daily before breakfast. 1/2 hr before meal. metFORMIN (GLUCOPHAGE) 1,000 mg tablet Take 1 tablet by mouth twice daily with meals. valsartan (DIOVAN) 320 mg tablet Take 1 tablet by mouth once daily. traMADol (ULTRAM) 50 mg tablet Take 50 mg by mouth every 6 hours as needed for pain. atorvastatin (LIPITOR) 40 mg tablet Take 1 tablet by mouth once daily. blood sugar diagnostic (BLOOD GLUCOSE TEST) test strip Test blood suga(s) 2 times daily. Dx: Type 2 DM - Controlled E11.9 Insulin: No FLUoxetine HCl (PROZAC) 40 mg capsule Take 1 capsule by mouth once daily. benzonatate (TESSALON PERLES) 100 mg capsule Take 1 capsule by mouth three times daily as needed for cough. SITagliptin (JANUVIA) 100 mg tablet Take 1 tablet by mouth once daily. meloxicam (MOBIC) 15 mg tablet Take 1 tablet by mouth once daily. With food. tolterodine ER (DETROL LA) 2 mg 24 hr capsule Take 1 capsule by mouth once daily. buPROPion XL (WELLBUTRIN XL) 150 mg 24 hr tablet Take 1 tablet by mouth once daily. hydroCHLOROthiazide 12.5 mg capsule Take 1 capsule by mouth once daily. sAXagliptin (ONGLYZA) 5 mg tab Take 1 tablet by mouth once daily. nystatin (NYSTOP) powder Apply 1 application to affected area twice daily. gabapentin (NEURONTIN) 300 mg capsule Take 2 capsules by mouth daily at bedtime for 180 days. Patient also takes one pill in the morning as needed amLODIPine (NORVASC) 10 mg tablet Take 1 tablet by mouth once daily. ondansetron orally disintegrating (ZOFRAN ODT) 4 mg disintegrating tablet Take 1 tablet by mouth every 6 hours. meclizine (ANTIVERT) 12.5 mg tab Take 1 tablet by mouth every 6 hours as needed (dizziness). DETROL LA 2 mg 24 hr capsule Take 1 capsule by mouth once daily. blood sugar diagnostic (ACCU-CHEK GUILLERMINA) test strip Use twice a day as instructed. DX:E11.40 Insulin: No Magnesium Oxide 250 mg tab Take by mouth daily at bedtime. Blood-Glucose Meter (ACCU-CHEK GUILLERMINA PLUS METER) [facility] Use daily as instructed. DX:E11.40 Insulin: No clobetasol (TEMOVATE) 0.05 % ointment Apply to the severely and persistently itching patch of rash and bumps of left upper back post shoulder area dermatitis once to twice per day as tolerated; AVOID face, eyes/eyelids, and all deep fold areas. Can use for up to 2-4 weeks on a particular area, but then stop or taper off as able (sooner if cleared). (Patient taking differently: as needed. Apply to the severely and persistently itching patch of rash and bumps of left upper back post shoulder area dermatitis once to twice per day as tolerated; AVOID face, eyes/eyelids, and all deep fold areas. Can use for up to 2-4 weeks on a particular area, but then stop or taper off as able (sooner if cleared). ) hyoscyamine sublingual (LEVSIN SL) 0.125 mg subl Dissolve 1 tablet under the tongue every 4 hours as needed. Blood-Glucose Meter (ACCU-CHEK GUILLERMINA MONITORING) [facility] Kit USE DIRECTED No current facility-administered medications for this visit. FAMILY HISTORY Problem Relation Age of Onset Arthritis Mother Hypertension Father Stroke Father Diabetes Father at 71 of diabetes Heart Father LA Arthritis Maternal Grandmother other (Other) Maternal Grandmother parkinsons other (Other) Brother sarcoid other (Other. GB resection.) Daughter Social History Tobacco Use Smoking status: Former Smoker Packs/day: 0.30 Years: 12.00 Pack years: 3.60 Types: Cigarettes Start date: 06/14/1959 Quit date: 01/30/1971 Years since quittin.0 Smokeless tobacco: Never Used Tobacco comment: Parents smoked in childhood home. Spouse non-smoker. Substance Use Topics Alcohol use: No Drug use: No EXAM: BP 128/66 Pulse (!) 58 Resp 14 Wt 59.9 kg (132 lb) SpO2 97% BMI 22.66 kg/m PHYSICAL EXAM: General Appearance: Well appearing, alert, in no acute distress, well-hydrated, well nourished.. Skin: Skin color, texture, turgor normal, no suspicious rashes or lesions. Head: Normocephalic, no masses, lesions, tenderness or abnormalities. Eyes: Anicteric sclera.Extraocular movements are intact. . Neurologic: Gait slightly unsteady -- hand-held assist and cane. ASSESSMENT/PLAN: 1. Displacement of lumbar intervertebral disc without myelopathy - ICD9: 722.10, ICD10: M51.26 (primary diagnosis) 2. Chronic left-sided low back pain with left-sided sciatica - ICD9: 724.2, 724.3, 338.29, ICD10: M54.42, G89.29 3. Chronic left shoulder pain - ICD9: 719.41, 338.29, ICD10: M25.512, G89.29 Pt with limited mobility d/t chronic back pain with radicular symptoms to the left leg. She would benefit from motorized scooter for mobility both in and out of her home. She would not be able to self-propel a device d/t back pain and left arm/shoulder pain. She has the space in her home to accommodate a device and the mental capacity to be able to use a device. Having a motorized scooter would allow her to be able to continue to function independently in her home. Discussed treatment plan and patient voices understanding. Patient's questions answered appropriately. Medications and potential side effects were discussed and patient voices understanding. Return to the office as scheduled or as needed for worsening/no improvement. Jeana Mendoza APRN.FACING MACHINE OPERATOR documented in this encounter [facility] 02-09-2022 Miscellaneous Notes Appointment has been scheduled. I can write a script. Let her know however, due to expense, these are often difficult to get paid for and my require a special face to face visit and some evaluation recommended by the provider. Amara returns call and reports patient is requesting a motorized scooter. Pended. Needs diagnosis. Jaylin Camacho RN Patient calling was told by her daughter to call office and ask for rx for motorized wheel chair. Patient said she is having more difficulty walking across the room at home, back problems. She plans to use this inside and out side the home. Asked patient if she wanted motorized power chair like a hoverround or power wheel chair? Patient said right now she uses walker in her home. Patient is not sure which she wanted. Patient is going to call her daughter and have her call the office. Not sure which order to pend. documented in this encounter [facility] 02-01-2022 Miscellaneous Notes noted Patient reports she was told to call in with an update after being seen by Dr. Julian on 01/18/22 due to changes in bowel function. She states she is doing okay and that she is not having any diarrhea or blood in her stools, or other symptoms. She reports that her stools are not completely solid but she believes it is from medication. Thank you. documented in this encounter [facility] 01-18-2022 Instructions Kathie Julian MD - 01/18/2022 11:54 AM EDT Call with an update next week on the bowels. Call if worsens. documented in this encounter [facility] 01-18-2022 Nurse Note Bowels have changed noticed that are very thin skinny formed. Left leg itching 2-3 weeks. No visible rash. Elbow is distillation operator helper from fall. Bleed again through the night. Still on clindamycin for her elbow also. documented in this encounter [facility] 01-18-2022 History of Present illness Narrative Patient presents with: Change In Bowel Habits HPI: Patient presents today for office visit for acute visit. See nursing note from yesterday: Pt called in and reports that 10 days ago she had a BM that was bright red, the next day she had another one. She states after those to episodes she hasn't had anymore blood in her stool, but now she can't control her bowel movements. Pt denies any abdominal pain or nausea. She reports she used to have BMs the size of frankfurters, now they are like little snakes the size of her little finger followed by diarrhea. She states that it is not foul smelling. She says she was too embarrassed at her last appointment to tell the provider about this issue. Appointment was made with provider tomorrow at 1120 am. Nursing Notes: Nancy Silverio LPN 01/18/2022 11:37 AM Signed Bowels have changed noticed that are very thin skinny formed. Left leg itching 2-3 weeks. No visible rash. Elbow is distillation operator helper from fall. Bleed again through the night. Still on clindamycin for her elbow also. Has not followed up with ortho yet. Reinforced to do so. Occasional serous drainage. Redness is improving. Is healing. No fever or chills. Still on antibiotics. No current gi bleeding. No abd pain. No fever or nausea or vomiting. Stools are formed. Has had a lot of gas. Caliber has changed just since on antibiotics. Bowels are soft. No loss of control of bowels but has felt like she has to defecate and has to go immediately. Has only been since on antibiotics. No current pain meds. Is seeing Dr. Mark. They are considering a pain pump or or stimulator. Has some itching on her left upper thigh. Now has extended down the leg as well and feels tingling. This is the leg that is affected by her back issues. No rash. MEDICATIONS: Current Outpatient Medications Medication Sig omeprazole (PRILOSEC) 20 mg capsule Take 1 capsule by mouth daily before breakfast. 1/2 hr before meal. metFORMIN (GLUCOPHAGE) 1,000 mg tablet Take 1 tablet by mouth twice daily with meals. valsartan (DIOVAN) 320 mg tablet Take 1 tablet by mouth once daily. traMADol (ULTRAM) 50 mg tablet Take 50 mg by mouth every 6 hours as needed for pain. atorvastatin (LIPITOR) 40 mg tablet Take 1 tablet by mouth once daily. blood sugar diagnostic (BLOOD GLUCOSE TEST) test strip Test blood suga(s) 2 times daily. Dx: Type 2 DM - Controlled E11.9 Insulin: No FLUoxetine HCl (PROZAC) 40 mg capsule Take 1 capsule by mouth once daily. benzonatate (TESSALON PERLES) 100 mg capsule Take 1 capsule by mouth three times daily as needed for cough. SITagliptin (JANUVIA) 100 mg tablet Take 1 tablet by mouth once daily. meloxicam (MOBIC) 15 mg tablet Take 1 tablet by mouth once daily. With food. tolterodine ER (DETROL LA) 2 mg 24 hr capsule Take 1 capsule by mouth once daily. buPROPion XL (WELLBUTRIN XL) 150 mg 24 hr tablet Take 1 tablet by mouth once daily. hydroCHLOROthiazide 12.5 mg capsule Take 1 capsule by mouth once daily. sAXagliptin (ONGLYZA) 5 mg tab Take 1 tablet by mouth once daily. nystatin (NYSTOP) powder Apply 1 application to affected area twice daily. gabapentin (NEURONTIN) 300 mg capsule Take 2 capsules by mouth daily at bedtime for 180 days. Patient also takes one pill in the morning as needed amLODIPine (NORVASC) 10 mg tablet Take 1 tablet by mouth once daily. ondansetron orally disintegrating (ZOFRAN ODT) 4 mg disintegrating tablet Take 1 tablet by mouth every 6 hours. meclizine (ANTIVERT) 12.5 mg tab Take 1 tablet by mouth every 6 hours as needed (dizziness). DETROL LA 2 mg 24 hr capsule Take 1 capsule by mouth once daily. blood sugar diagnostic (ACCU-CHEK GUILLERMINA) test strip Use twice a day as instructed. DX:E11.40 Insulin: No Magnesium Oxide 250 mg tab Take by mouth daily at bedtime. Blood-Glucose Meter (ACCU-CHEK GUILLERMINA PLUS METER) [facility] Use daily as instructed. DX:E11.40 Insulin: No clobetasol (TEMOVATE) 0.05 % ointment Apply to the severely and persistently itching patch of rash and bumps of left upper back post shoulder area dermatitis once to twice per day as tolerated; AVOID face, eyes/eyelids, and all deep fold areas. Can use for up to 2-4 weeks on a particular area, but then stop or taper off as able (sooner if cleared). (Patient taking differently: as needed. Apply to the severely and persistently itching patch of rash and bumps of left upper back post shoulder area dermatitis once to twice per day as tolerated; AVOID face, eyes/eyelids, and all deep fold areas. Can use for up to 2-4 weeks on a particular area, but then stop or taper off as able (sooner if cleared). ) hyoscyamine sublingual (LEVSIN SL) 0.125 mg subl Dissolve 1 tablet under the tongue every 4 hours as needed. Blood-Glucose Meter (ACCU-CHEK GUILLERMINA MONITORING) [facility] Kit USE DIRECTED No current facility-administered medications for this visit. ALLERGIES: ALLERGIES Allergen Reactions Codeine Anaphylaxis Ambien [Zolpidem Ta* Mental Status Change Hallucinations. Crab Unknown Cymbalta [Duloxetin* Other: See Comments Made blood sugar go up. Hallucinations Oxaprozin Prednisone Other: See Comments Hyperglycemia. Vicodin [Hydrocodon* Anaphylaxis Levaquin [Levofloxa* Intolerance Had joint pain. Hallucinations. 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) PONV (postoperative nausea and vomiting) 06/24/2017 Pure hypercholesterolemia Retinal break of right eye 2016 Type II or unspecified type diabetes mellitus without mention of complication, not stated as uncontrolled PAST SURGICAL HISTORY Procedure Laterality Date ARTHROSCOPY KNEE DIAGNOSTIC W/WO SYNOVIAL BX SPX Right 03/2005 Arthroscopy, knee ARTHRP INTERPOS INTERCARPAL/METACARPAL JOINTS Right 08/27/2018 Right thumb CMC arthroplasty with LRTI, palmaris longes and Right carpal tunnel release ARTHRP KNE CONDYLE&PLATU MEDIAL&LAT COMPARTMENTS Right 07/10/2017 Knee replacement, total DELIVERY ONLY 08/04/1963 , low transverse DELIVERY ONLY 03/02/1972 , low transverse CHOLECYSTOSTOMY PRQ W/IMAGING & CATHETER PLMT 1991 COLONOSCOPY FLX DX W/COLLJ SPEC WHEN PFRMD 08/22/2011 Colonoscopy LAMINECTOMY W/O FFD 07/16 VERT SEG LUMBAR 01/2004 removal of blood clot at site LAPAROSCOPY SURG CHOLECYSTECTOMY 1996 PAST SURGICAL HISTORY OF Right 2017 cataract surgery PAST SURGICAL HISTORY OF Right 2016 Macular hole repair TOTAL ABDOMINAL HYSTERECT W/WO RMVL TUBE OVARY 1987 fibroid TX ECTOPIC ABDOMINAL/VAGINAL APPR 1967 FAMILY HISTORY Problem Relation Age of Onset Arthritis Mother Hypertension Father Stroke Father Diabetes Father at 71 of diabetes Heart Father LA Arthritis Maternal Grandmother other (Other) Maternal Grandmother parkinsons other (Other) Brother sarcoid other (Other. GB resection.) Daughter Social History Tobacco Use Smoking status: Former Smoker Packs/day: 0.30 Years: 12.00 Pack years: 3.60 Types: Cigarettes Start date: 06/14/1959 Quit date: 01/30/1971 Years since quittin.0 Smokeless tobacco: Never Used Tobacco comment: Parents smoked in childhood home. Spouse non-smoker. Substance Use Topics Alcohol use: No Drug use: No Reviewed current medications, allergies, past medical history, surgical history, family history and social history today. REVIEW OF SYSTEMS She thinks she had a colonoscopy done four year ago. Last record I had was 10 years ago. All other reviewed and negative other than HPI. VITALS: BP 132/62 Pulse 60 Wt 61.7 kg (136 lb) BMI 23.34 kg/m Last 4 Encounter Wt Readings: Date: Wt: 01/10/2022 60.3 kg (133 lb) 01/05/2022 60.3 kg (133 lb) 12/09/2021 61.9 kg (136 lb 6.4 oz) 11/08/2021 63 kg (138 lb 14.4 oz) PHYSICAL EXAMINATION: General appearance: Well appearing, alert, in no acute distress, well-hydrated, well nourished. Skin: Skin color, texture, turgor normal, no suspicious rashes or lesions Lungs: Lungs clear to auscultation. No wheezing, rhonchi, rales Heart: RRR without murmur, gallop, or rubs. No ectopy Abdomen: Normal abdominal exam, Abdomen soft, non-tender. Bowel sounds normal. No masses, organomegaly No rash on skin. Elbow is improving. Minimal redness around elbow. Normal range of motion. ASSESSMENT/PLAN: 1. Change in bowel function - ICD9: 787.99, ICD10: R19.8 (primary diagnosis) - ? Related to antibiotics. Check ifobt. Call if worsens or not better when finishes antibiotics. If continues, see surgery for scope 2. Olecranon bursitis of left elbow - ICD9: 726.33, ICD10: M70.22 - follow with ortho - CONSULT TO ORTHOPAEDICS 3. Screening for colon cancer - ICD9: V76.51, ICD10: Z12.11 - FECAL OCCULT BLOOD TEST Kathie Julian documented in this encounter [facility] 01-17-2022 Miscellaneous Notes Pt called in and reports that 10 days ago she had a BM that was bright red, the next day she had another one. She states after those to episodes she hasn't had anymore blood in her stool, but now she can't control her bowel movements. Pt denies any abdominal pain or nausea. She reports she used to have BMs the size of frankfurters, now they are like little snakes the size of her little finger followed by diarrhea. She states that it is not foul smelling. She says she was too embarrassed at her last appointment to tell the provider about this issue. Appointment was made with provider tomorrow at 1120 am. documented in this encounter [facility] 01-12-2022 Miscellaneous Notes Patient was notified [facility] 1. Sugars are up. Watch diet and call sugars in two weeks. Get a1c in three months. 2. Protein in urine is better. Stay on bp meds 3. Red blood cells are smaller. Check iron in the week or two . documented in this encounter [facility] 01-10-2022 History of Present illness Narrative No chief complaint on file. HPI: Patient presents today for office visit for follow up. Has been getting spinal injections from Dr. Mark. Getting pain pump. Sees Friend in a few weeks. No stomach pain. Has reflux symptoms. No black or bloody stools. She is on clindamycin for below, which may be bothering her. Did have a fall recently but has had falls all her life. Hit her head and injured her bursa. Seen in the ER after. Seeing Alex lopez for her olecranon bursitis. Has been draining. No redness or warmth. Does use a cane. HTN: Patient is compliant with meds Yes Denies side effects: Yes. Chest pain: No. Dyspnea: No. Edema: No. Palpitations: No. DM: Reports overall feeling well. Medication side effects: No. Hypoglycemic spells: No. Watching diet: Yes. HYPERLIPIDEMIA: Patient is taking medication: yes, Patient denies myalgias: No. UROLOGY : following with urolgoy MEDICATIONS: Current Outpatient Medications Medication Sig metFORMIN (GLUCOPHAGE) 1,000 mg tablet Take 1 tablet by mouth twice daily with meals. valsartan (DIOVAN) 320 mg tablet Take 1 tablet by mouth once daily. traMADol (ULTRAM) 50 mg tablet Take 50 mg by mouth every 6 hours as needed for pain. atorvastatin (LIPITOR) 40 mg tablet Take 1 tablet by mouth once daily. blood sugar diagnostic (BLOOD GLUCOSE TEST) test strip Test blood suga(s) 2 times daily. Dx: Type 2 DM - Controlled E11.9 Insulin: No FLUoxetine HCl (PROZAC) 40 mg capsule Take 1 capsule by mouth once daily. benzonatate (TESSALON PERLES) 100 mg capsule Take 1 capsule by mouth three times daily as needed for cough. SITagliptin (JANUVIA) 100 mg tablet Take 1 tablet by mouth once daily. meloxicam (MOBIC) 15 mg tablet Take 1 tablet by mouth once daily. With food. tolterodine ER (DETROL LA) 2 mg 24 hr capsule Take 1 capsule by mouth once daily. buPROPion XL (WELLBUTRIN XL) 150 mg 24 hr tablet Take 1 tablet by mouth once daily. hydroCHLOROthiazide 12.5 mg capsule Take 1 capsule by mouth once daily. sAXagliptin (ONGLYZA) 5 mg tab Take 1 tablet by mouth once daily. nystatin (NYSTOP) powder Apply 1 application to affected area twice daily. gabapentin (NEURONTIN) 300 mg capsule Take 2 capsules by mouth daily at bedtime for 180 days. Patient also takes one pill in the morning as needed amLODIPine (NORVASC) 10 mg tablet Take 1 tablet by mouth once daily. ondansetron orally disintegrating (ZOFRAN ODT) 4 mg disintegrating tablet Take 1 tablet by mouth every 6 hours. meclizine (ANTIVERT) 12.5 mg tab Take 1 tablet by mouth every 6 hours as needed (dizziness). DETROL LA 2 mg 24 hr capsule Take 1 capsule by mouth once daily. blood sugar diagnostic (ACCU-CHEK GUILLERMINA) test strip Use twice a day as instructed. DX:E11.40 Insulin: No Magnesium Oxide 250 mg tab Take by mouth daily at bedtime. Blood-Glucose Meter (ACCU-CHEK GUILLERMINA PLUS METER) misc Use daily as instructed. DX:E11.40 Insulin: No clobetasol (TEMOVATE) 0.05 % ointment Apply to the severely and persistently itching patch of rash and bumps of left upper back post shoulder area dermatitis once to twice per day as tolerated; AVOID face, eyes/eyelids, and all deep fold areas. Can use for up to 2-4 weeks on a particular area, but then stop or taper off as able (sooner if cleared). (Patient taking differently: as needed. Apply to the severely and persistently itching patch of rash and bumps of left upper back post shoulder area dermatitis once to twice per day as tolerated; AVOID face, eyes/eyelids, and all deep fold areas. Can use for up to 2-4 weeks on a particular area, but then stop or taper off as able (sooner if cleared). ) hyoscyamine sublingual (LEVSIN SL) 0.125 mg subl Dissolve 1 tablet under the tongue every 4 hours as needed. Blood-Glucose Meter (ACCU-CHEK GUILLERMINA MONITORING) Misc Kit USE DIRECTED No current facility-administered medications for this visit. ALLERGIES: ALLERGIES Allergen Reactions Codeine Anaphylaxis Ambien [Zolpidem Ta* Mental Status Change Hallucinations. Crab Unknown Cymbalta [Duloxetin* Other: See Comments Made blood sugar go up. Hallucinations Oxaprozin Prednisone Other: See Comments Hyperglycemia. Vicodin [Hydrocodon* Anaphylaxis Levaquin [Levofloxa* Intolerance Had joint pain. Hallucinations. 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) PONV (postoperative nausea and vomiting) 06/24/2017 Pure hypercholesterolemia Retinal break of right eye 2016 Type II or unspecified type diabetes mellitus without mention of complication, not stated as uncontrolled PAST SURGICAL HISTORY Procedure Laterality Date ARTHROSCOPY KNEE DIAGNOSTIC W/WO SYNOVIAL BX SPX Right 03/2005 Arthroscopy, knee ARTHRP INTERPOS INTERCARPAL/METACARPAL JOINTS Right 08/27/2018 Right thumb CMC arthroplasty with LRTI, palmaris longes and Right carpal tunnel release ARTHRP KNE CONDYLE&PLATU MEDIAL&LAT COMPARTMENTS Right 07/10/2017 Knee replacement, total DELIVERY ONLY 08/04/1963 , low transverse DELIVERY ONLY 03/02/1972 , low transverse CHOLECYSTOSTOMY PRQ W/IMAGING & CATHETER PLMT 1991 COLONOSCOPY FLX DX W/COLLJ SPEC WHEN PFRMD 08/22/2011 Colonoscopy LAMINECTOMY W/O FFD 07/16 VERT SEG LUMBAR 01/2004 removal of blood clot at site LAPAROSCOPY SURG CHOLECYSTECTOMY 1996 PAST SURGICAL HISTORY OF Right 2017 cataract surgery PAST SURGICAL HISTORY OF Right 2016 Macular hole repair TOTAL ABDOMINAL HYSTERECT W/WO RMVL TUBE OVARY 1987 fibroid TX ECTOPIC ABDOMINAL/VAGINAL APPR 1967 FAMILY HISTORY Problem Relation Age of Onset Arthritis Mother Hypertension Father Stroke Father Diabetes Father at 71 of diabetes Heart Father LA Arthritis Maternal Grandmother other (Other) Maternal Grandmother parkinsons other (Other) Brother sarcoid other (Other. GB resection.) Daughter Social History Tobacco Use Smoking status: Former Smoker Packs/day: 0.30 Years: 12.00 Pack years: 3.60 Types: Cigarettes Start date: 06/14/1959 Quit date: 01/30/1971 Years since quittin.9 Smokeless tobacco: Never Used Tobacco comment: Parents smoked in childhood home. Spouse non-smoker. Substance Use Topics Alcohol use: No Drug use: No Reviewed current medications, allergies, past medical history, surgical history, family history and social history today. REVIEW OF SYSTEMS All other reviewed and negative other than HPI. HEALTH MAINTENANCE: Reviewed health maintenance issues today HBA1C due on 09/24/2021 LDL CHOLESTEROL due on 10/04/2021 VITALS: BP 128/62 Pulse 60 Resp 16 Wt 60.3 kg (133 lb) BMI 22.83 kg/m Last 4 Encounter Wt Readings: Date: Wt: 01/05/2022 60.3 kg (133 lb) 12/09/2021 61.9 kg (136 lb 6.4 oz) 11/08/2021 63 kg (138 lb 14.4 oz) 10/04/2021 64 kg (141 lb) PHYSICAL EXAMINATION: General appearance: Well appearing, alert, in no acute distress, well-hydrated, well nourished. and Wheelchair Skin: Skin color, texture, turgor normal, no suspicious rashes or lesions Head: Normocephalic, no masses, lesions, tenderness or abnormalities Neck: Supple, no adenopathy; thyroid symmetric, normal size, no bruits Back: Normal exam Lungs: Lungs clear to auscultation. No wheezing, rhonchi, rales Heart: RRR without murmur, gallop, or rubs. No ectopy Abdomen: Normal abdominal exam, Abdomen soft, non-tender. Bowel sounds normal. No masses, organomegaly Extremities: No deformities, edema, skin discoloration, clubbing or cyanosis. Good capillary refill. Musculoskeletal: No joint swelling, deformity, or tenderness Peripheral pulses: Normal Neuro: Negative. ASSESSMENT/PLAN: 1. 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 - CBC + DIFF - COMP METABOLIC PANEL - LIPID PANEL BASIC - HGB A1C - ALBUMIN/CREAT RATIO RND UR 2. Pure hypercholesterolemia - ICD9: 272.0, ICD10: E78.00 As above 3. Essential hypertension, benign - ICD9: 401.1, ICD10: I10 - Continue current medication(s) - Goal of BP <130/80 4. Microalbuminuria - ICD9: 791.0, ICD10: R80.9 - follow closely 5. Malignant neoplasm of overlapping sites of bladder (HCC) - ICD9: 188.8, ICD10: C67.8 - per urology 6. GERD without esophagitis - ICD9: 530.81, ICD10: K21.9 - add meds. - OMEPRAZOLE 20 MG CAPSULE,DELAYED RELEASE Kathie Julian documented in this encounter [facility] 01-05-2022 History of Present illness Narrative 01/05/2022 Patient presents with: Derm Problem: left elbow SUBJECTIVE: This is a 81 year old, accompanied by daughter, that is here today for Above Complaints.. ONSET: a month or so ago after a fall LOCATION: left elbow DURATION: constant CHARACTERISTICS: stabbing AGGRAVATING FEATURES: moving it ALLEVIATING FEATURES: not moving it RADIATION: upper arm and around to inner elbow Patient is left hand dominant Had a yellow blister about one week and then had some drainage from it. Elbow continues to be sore and she has a scab to it. 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 valsartan (DIOVAN) 320 mg tablet Take 1 tablet by mouth once daily. traMADol (ULTRAM) 50 mg tablet Take 50 mg by mouth every 6 hours as needed for pain. atorvastatin (LIPITOR) 40 mg tablet Take 1 tablet by mouth once daily. blood sugar diagnostic (BLOOD GLUCOSE TEST) test strip Test blood suga(s) 2 times daily. Dx: Type 2 DM - Controlled E11.9 Insulin: No FLUoxetine HCl (PROZAC) 40 mg capsule Take 1 capsule by mouth once daily. benzonatate (TESSALON PERLES) 100 mg capsule Take 1 capsule by mouth three times daily as needed for cough. SITagliptin (JANUVIA) 100 mg tablet Take 1 tablet by mouth once daily. meloxicam (MOBIC) 15 mg tablet Take 1 tablet by mouth once daily. With food. tolterodine ER (DETROL LA) 2 mg 24 hr capsule Take 1 capsule by mouth once daily. buPROPion XL (WELLBUTRIN XL) 150 mg 24 hr tablet Take 1 tablet by mouth once daily. hydroCHLOROthiazide 12.5 mg capsule Take 1 capsule by mouth once daily. sAXagliptin (ONGLYZA) 5 mg tab Take 1 tablet by mouth once daily. nystatin (NYSTOP) powder Apply 1 application to affected area twice daily. gabapentin (NEURONTIN) 300 mg capsule Take 2 capsules by mouth daily at bedtime for 180 days. Patient also takes one pill in the morning as needed amLODIPine (NORVASC) 10 mg tablet Take 1 tablet by mouth once daily. ondansetron orally disintegrating (ZOFRAN ODT) 4 mg disintegrating tablet Take 1 tablet by mouth every 6 hours. meclizine (ANTIVERT) 12.5 mg tab Take 1 tablet by mouth every 6 hours as needed (dizziness). DETROL LA 2 mg 24 hr capsule Take 1 capsule by mouth once daily. blood sugar diagnostic (ACCU-CHEK GUILLERMINA) test strip Use twice a day as instructed. DX:E11.40 Insulin: No Magnesium Oxide 250 mg tab Take by mouth daily at bedtime. Blood-Glucose Meter (ACCU-CHEK GUILLERMINA PLUS METER) misc Use daily as instructed. DX:E11.40 Insulin: No clobetasol (TEMOVATE) 0.05 % ointment Apply to the severely and persistently itching patch of rash and bumps of left upper back post shoulder area dermatitis once to twice per day as tolerated; AVOID face, eyes/eyelids, and all deep fold areas. Can use for up to 2-4 weeks on a particular area, but then stop or taper off as able (sooner if cleared). (Patient taking differently: as needed. Apply to the severely and persistently itching patch of rash and bumps of left upper back post shoulder area dermatitis once to twice per day as tolerated; AVOID face, eyes/eyelids, and all deep fold areas. Can use for up to 2-4 weeks on a particular area, but then stop or taper off as able (sooner if cleared). ) hyoscyamine sublingual (LEVSIN SL) 0.125 mg subl Dissolve 1 tablet under the tongue every 4 hours as needed. Blood-Glucose Meter (ACCU-CHEK GUILLERMINA MONITORING) Misc Kit USE DIRECTED No current facility-administered medications for this visit. Medications and allergies reviewed by this provider. SOCIAL HISTORY Social History Tobacco Use Smoking status: Former Smoker Packs/day: 0.30 Years: 12.00 Pack years: 3.60 Types: Cigarettes Start date: 06/14/1959 Quit date: 01/30/1971 Years since quittin.9 Smokeless tobacco: Never Used Tobacco comment: Parents smoked in childhood home. Spouse non-smoker. Substance Use Topics Alcohol use: No Drug use: No REVIEW OF SYSTEMS All other reviewed and negative other than HPI. OBJECTIVE: BP 112/58 Pulse 69 Resp 18 Wt 60.3 kg (133 lb) SpO2 98% BMI 22.83 kg/m . Vital signs reviewed by this provider. APPEARANCE Well appearing, alert, in no acute distress, well-hydrated, well nourished. EYES conjunctiva and sclera normal. LEFT ELBOW: approximately 50 cent sized mildly erythematous area with yellow scab in the middle. No active drainage. TTP. Discomfort with passive and active ROM. 2+ radial pulse SHINGRIX VACCINE(1 of 2) due on 07/14/2009 DEPRESSION SCREENING due on 12/23/2020 COVID-19 VACCINE(3 - Booster for Moderna series) due on 02/06/2021 ADVANCE DIRECTIVE DISCUSSION Never done HBA1C due on 09/24/2021 LDL CHOLESTEROL due on 10/04/2021 URINE ALBUMIN:CREATININE RATIO due on 03/27/2022 DIABETIC FOOT EXAM due on 07/12/2022 DILATED RETINAL EXAM due on 12/21/2022 ANNUAL PCP TEAM CHRONIC DISEASE VISIT due on 01/05/2023 BP CONTROLLED (<130/80) due on 01/05/2023 DTAP,TDAP,TD(2 - Td or Tdap) due on 10/18/2024 BONE DENSITY Completed INFLUENZA Completed PNEUMOCOCCAL: 65+ Completed ASSESSMENT/PLAN: 1. Left elbow pain - ICD9: 719.42, ICD10: M25.522 - discussed with Dr. Bliss in orthopedics - recommend ER evaluation for possible infected bursa - patient is agreeable to go to [facility]. Daughter will drive her Arpita Harvey APRN.CNP Prescription instructions reviewed with patient as applicable. Patient advised if symptoms do not improve or if symptoms worsen sooner, to contact their primary care physician. Potential red flag symptoms discussed with the patient. Reviewed appropriate action plan to take if red flag symptoms occur. Patient agreeable to treatment plan. documented in this encounter [facility] 01-04-2022 Miscellaneous Notes Patient calls to report that her left elbow isn't getting any better since her appointment at end of November. Patient reports that the scabbed area is now open and draining a small amount of yellow drainage. Redness noted to christopher-wound. PCP with no available appointments. Patient declined scheduling with PA. Patient requesting appointment with another provider in [facility]. Scheduled tomorrow per request. Jaylin Camacho RN documented in this encounter [facility] 12-18-2021 Miscellaneous Notes Script sent. Jeana Mendoza APRN.ANGI Scheduled 01/10/22 Pharmacy verified in [facility] Patient has been identified by name and date of : Yes Patient aware RX will be sent to pharmacy. No need to notify patient. Patient phones for refill(s): Pending Prescriptions Disp Refills METFORMIN 1,000 MG TABLET 180 tablet 0 Sig: Take 1 tablet by mouth twice daily with meals. TRIP: No Date of last office visit : 11/08/2021 Date of next office visit : 01/10/2022 Last 2 Encounter Wt Readings: Date: Wt: 12/09/2021 61.9 kg (136 lb 6.4 oz) 11/08/2021 63 kg (138 lb 14.4 oz) Not applicable Please advise. Katie Velasquez Pss Patient is out of metformin and called on Saturday, but I don't see a request. Please send in as soon as possible. Pharmacy verified in Epic Patient has been identified by name and date of : Yes Patient aware RX will be sent to pharmacy. No need to notify patient. Patient phones for refill(s): Pending Prescriptions Disp Refills METFORMIN 1,000 MG TABLET 180 tablet 0 Sig: Take 1 tablet by mouth twice daily with meals. TRIP: No Date of last office visit : 11/08/2021 Date of next office visit : 01/10/2022 Last 2 Encounter Wt Readings: Date: Wt: 12/09/2021 61.9 kg (136 lb 6.4 oz) 11/08/2021 63 kg (138 lb 14.4 oz) Please advise. Katie Velasquez Pss documented in this encounter [facility] 12-12-2021 Miscellaneous Notes Patient has been identified by name and date of : Yes Pending Prescriptions Disp Refills VALSARTAN 320 MG TABLET 90 tablet 3 Sig: Take 1 tablet by mouth once daily. TRIP: No RX INSTRUCTIONS: Patient requesting a call when RX is approved and sent to the pharmacy. Please call patient at: [phone]. Sheree Gonzalez Pss documented in this encounter [facility] 12-09-2021 History of Present illness Narrative This note was created using [employer]. Subjective Shanel Felton is a 81 year old female. HPI Patient presents with left elbow and shoulder pain for a week. She states she fell down her stairs to her basement. She did hit her head at that time but denies any loss of consciousness or significant headache. She states she has had inner ear problems her whole life and falls frequently. She states she let go of the rail and just lost her balance. Denies neck or back pain. She has had swelling and redness to her elbow which happened almost immediately after the fall. The redness and swelling actually has gotten better but was still bothering her so she came in for evaluation. She denies weakness or numbness. It is painful to lift her left shoulder as well. She states she tore her rotator cuff in that several years ago. No fever or chills. Review of Systems Musculoskeletal: Left elbow and shoulder pain All other systems reviewed and are negative. 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 atorvastatin (LIPITOR) 40 mg tablet Take 1 tablet by mouth once daily. 90 tablet 1 blood sugar diagnostic (BLOOD GLUCOSE TEST) test strip Test blood suga(s) 2 times daily. Dx: Type 2 DM - Controlled E11.9 Insulin: No 200 Strip 3 FLUoxetine HCl (PROZAC) 40 mg capsule Take 1 capsule by mouth once daily. 90 capsule 1 benzonatate (TESSALON PERLES) 100 mg capsule Take 1 capsule by mouth three times daily as needed for cough. 30 capsule 0 meloxicam (MOBIC) 15 mg tablet Take 1 tablet by mouth once daily. With food. 30 tablet 5 metFORMIN (GLUCOPHAGE) 1,000 mg tablet Take 1 tablet by mouth twice daily with meals. 180 tablet 0 tolterodine ER (DETROL LA) 2 mg 24 hr capsule Take 1 capsule by mouth once daily. 90 capsule 1 buPROPion XL (WELLBUTRIN XL) 150 mg 24 hr tablet Take 1 tablet by mouth once daily. 30 tablet 5 hydroCHLOROthiazide 12.5 mg capsule Take 1 capsule by mouth once daily. 30 capsule 12 sAXagliptin (ONGLYZA) 5 mg tab Take 1 tablet by mouth once daily. 90 tablet 3 nystatin (NYSTOP) powder Apply 1 application to affected area twice daily. 60 g 5 amLODIPine (NORVASC) 10 mg tablet Take 1 tablet by mouth once daily. 90 tablet 3 valsartan (DIOVAN) 320 mg tablet Take 1 tablet by mouth once daily. 90 tablet 3 ondansetron orally disintegrating (ZOFRAN ODT) 4 mg disintegrating tablet Take 1 tablet by mouth every 6 hours. 20 tablet 0 meclizine (ANTIVERT) 12.5 mg tab Take 1 tablet by mouth every 6 hours as needed (dizziness). 30 tablet 0 DETROL LA 2 mg 24 hr capsule Take 1 capsule by mouth once daily. 90 capsule 1 blood sugar diagnostic (ACCU-CHEK GUILLERMINA) test strip Use twice a day as instructed. DX:E11.40 Insulin: No 200 Strip 3 Magnesium Oxide 250 mg tab Take by mouth daily at bedtime. Blood-Glucose Meter (ACCU-CHEK GUILLERMINA PLUS METER) misc Use daily as instructed. DX:E11.40 Insulin: No 1 Each 0 clobetasol (TEMOVATE) 0.05 % ointment Apply to the severely and persistently itching patch of rash and bumps of left upper back post shoulder area dermatitis once to twice per day as tolerated; AVOID face, eyes/eyelids, and all deep fold areas. Can use for up to 2-4 weeks on a particular area, but then stop or taper off as able (sooner if cleared). (Patient taking differently: as needed. Apply to the severely and persistently itching patch of rash and bumps of left upper back post shoulder area dermatitis once to twice per day as tolerated; AVOID face, eyes/eyelids, and all deep fold areas. Can use for up to 2-4 weeks on a particular area, but then stop or taper off as able (sooner if cleared). ) 30 g 3 hyoscyamine sublingual (LEVSIN SL) 0.125 mg subl Dissolve 1 tablet under the tongue every 4 hours as needed. 30 tablet 5 Blood-Glucose Meter (ACCU-CHEK GUILLERMINA MONITORING) Misc Kit USE DIRECTED 1 0 cephALEXin (KEFLEX) 500 mg capsule Take 1 capsule by mouth three times daily for 7 days. 21 capsule 0 SITagliptin (JANUVIA) 100 mg tablet Take 1 tablet by mouth once daily. 60 tablet 0 gabapentin (NEURONTIN) 300 mg capsule Take 2 capsules by mouth daily at bedtime for 180 days. Patient also takes one pill in the morning as needed 270 capsule 1 No current facility-administered medications for this visit. PAST SURGICAL HISTORY Procedure Laterality Date ARTHROSCOPY KNEE DIAGNOSTIC W/WO SYNOVIAL BX SPX Right 03/2005 Arthroscopy, knee ARTHRP INTERPOS INTERCARPAL/METACARPAL JOINTS Right 08/27/2018 Right thumb CMC arthroplasty with LRTI, palmaris longes and Right carpal tunnel release ARTHRP KNE CONDYLE&PLATU MEDIAL&LAT COMPARTMENTS Right 07/10/2017 Knee replacement, total DELIVERY ONLY 08/04/1963 , low transverse DELIVERY ONLY 03/02/1972 , low transverse CHOLECYSTOSTOMY PRQ W/IMAGING & CATHETER PLMT 1991 COLONOSCOPY FLX DX W/COLLJ SPEC WHEN PFRMD 08/22/2011 Colonoscopy LAMINECTOMY W/O FFD 07/16 VERT SEG LUMBAR 01/2004 removal of blood clot at site LAPAROSCOPY SURG CHOLECYSTECTOMY 1996 PAST SURGICAL HISTORY OF Right 2016 cataract surgery PAST SURGICAL HISTORY OF Right 2016 Macular hole repair TOTAL ABDOMINAL HYSTERECT W/WO RMVL TUBE OVARY 1987 fibroid TX ECTOPIC ABDOMINAL/VAGINAL APPR 1967 FAMILY HISTORY Problem Relation Age of Onset Arthritis Mother Hypertension Father Stroke Father Diabetes Father at 71 of diabetes Heart Father LA Arthritis Maternal Grandmother other (Other) Maternal Grandmother parkinsons other (Other) Brother sarcoid other (Other. GB resection.) Daughter Social History Tobacco Use Smoking status: Former Smoker Packs/day: 0.30 Years: 12.00 Pack years: 3.60 Types: Cigarettes Start date: 06/14/1959 Quit date: 01/30/1971 Years since quittin.8 Smokeless tobacco: Never Used Tobacco comment: Parents smoked in childhood home. Spouse non-smoker. Substance Use Topics Alcohol use: No Drug use: No Objective BP 138/66 Pulse 75 Temp 36.3 C (97.4 F) Resp 20 Wt 61.9 kg (136 lb 6.4 oz) SpO2 97% BMI 23.41 kg/m Physical Exam Vitals reviewed. Constitutional: Appearance: Normal appearance. HENT: Head: Normocephalic and atraumatic. Musculoskeletal: Comments: Exam of the left elbow reveals swelling and mild erythema to the olecranon. Consistent with bursitis. Pain with flexion and extension of the elbow. Able to fully extend. Normal hand grasp strength. Radial pulse 2+. She does have an overlying scab over the elbow as well. No lymphangitic streaking. She has limited range of motion of the left shoulder with pain upon lifting the arm past 90 degrees on abduction. Skin: General: Skin is warm and dry. Neurological: General: No focal deficit present. Mental Status: She is alert and oriented to person, place, and time. Cranial Nerves: No cranial nerve deficit. Motor: No weakness. Gait: Gait normal. Assessment and Plan ASSESSMENT/PLAN: 1. Olecranon bursitis of left elbow - ICD9: 726.33, ICD10: M70.22 (primary diagnosis) X-ray was read by the radiologist as no fracture. I did place her in an Jose wrap and sling for comfort. Recommended ice, rest. I did cover her with Keflex as she does have an overlying scab and may have a secondary cellulitis. Do not feel she has a septic bursitis. Discussed if not improving to follow-up with PCP. Patient agreeable. - XR ELBOW SPECIAL VIEWS AP/LAT/OTHER LEFT 2. Acute pain of left shoulder - ICD9: 719.41, ICD10: M25.512 X-ray showed degenerative changes with no acute fracture. Discussed follow-up with PCP if not improving over the next 1 to 2 weeks. - XR SHOULDER GENERAL 3V OR MORE AP/TRUE AP/OTHER LEFT Jessica Rivera PA-C documented in this encounter [facility] 11-10-2021 Miscellaneous Notes Voicemails left 11/10/2021 by both patient and Ibis from [facility] in Dr. Mark's office in [place], [place] Requesting records from Dr. Pappas and Pattie Freed PA-C office to be faxed to [phone] Records sent via fax at this time documented in this encounter [facility] 11-09-2021 History of Present illness Narrative POPULATION HEALTH NAVIGATION OUTREACH Action/FYI [facility] Support: Called pt to schedule an appt in Pain Management. Patient Declined will stop down and schedule Pt identified by name and : YES, via phone Outreach Outcome/Action Spoke to patient or caregiver: Patient will return the call or ask for return call Reason for Outreach Care Gap or Scheduling/Wellness visits Payer: Payor: MEDICARE / Plan: MEDICARE A AND B / Product Type: Medicare / Care Gap Reviewed:: Specialty Scheduling consult Reminder: Reminder note to check Health Maintenance for items below Health Maintenance items due: BP CONTROLLED (<130/80) Never done SHINGRIX VACCINE(2 of 3) due on 07/14/2009 DILATED RETINAL EXAM due on 11/18/2020 DEPRESSION SCREENING due on 12/23/2020 COVID-19 VACCINE(3 - Booster for Moderna series) due on 02/06/2021 ADVANCE DIRECTIVE DISCUSSION Never done HBA1C due on 09/24/2021 LDL CHOLESTEROL due on 10/04/2021 Message Sent to Practice: No Navigation Signature: Katie Segura November 09, 2021 1:16 PM documented in this encounter [facility] 11-08-2021 Instructions Jeana Mendoza APRN.CNP - 11/08/2021 4:09 PM EDT 1. Please help schedule with pain management and ortho here in [place]. documented in this encounter [facility] 11-08-2021 History of Present illness Narrative This is a 81 year old female who presents today with: Patient presents with: Back Pain: LEFT leg/hip & back x 1 month HISTORY OF PRESENT ILLNESS: Shanel Felton is a 81 year old female. Patient presents with: Back Pain: LEFT leg/hip & back x 1 month Patient presents today with ongoing back and left leg pain. Refers that she is just having trouble tolerating the discomfort any longer. It is intermittent in nature -- not there right now. Gets n/t in the left leg. No loss of bowel/bladder. She has had injections in the past which have been very helpful. She reports that more recently, injection was in the hip and did not find this helpful. She would like to avoid pain medication. She is taking gabapentin, but reports that she doesn't think this is helpful. She is participating in PT. Should would like to try to get care more local. MRI 01/11/21 IMPRESSION: Lumbar spondylosis as discussed. There is some improvement in the AP dimension of the spinal canal related to prior laminectomies at L3-L4 and L4-L5. Loss of disc height, endplate osteophyte, lateral margins of the annulus, and facet degenerative change contribute to moderate foraminal narrowing L2-L3, severe foraminal narrowing at L3-L4 and L4-L5. Would expect radiculopathy as a consequence. Anatomic Thoracic/Lumbar Variant: None. L4-5 is considered the level of the iliac crest and assume there are 5 lumbar-type vertebrae. 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) PONV (postoperative nausea and vomiting) 06/24/2017 Pure hypercholesterolemia Retinal break of right eye 2016 Type II or unspecified type diabetes mellitus without mention of complication, not stated as uncontrolled PAST SURGICAL HISTORY Procedure Laterality Date ARTHROSCOPY KNEE DIAGNOSTIC W/WO SYNOVIAL BX SPX Right 03/2005 Arthroscopy, knee ARTHRP INTERPOS INTERCARPAL/METACARPAL JOINTS Right 08/27/2018 Right thumb CMC arthroplasty with LRTI, palmaris longes and Right carpal tunnel release ARTHRP KNE CONDYLE&PLATU MEDIAL&LAT COMPARTMENTS Right 07/10/2017 Knee replacement, total DELIVERY ONLY 08/04/1963 , low transverse DELIVERY ONLY 03/02/1972 , low transverse CHOLECYSTOSTOMY PRQ W/IMAGING & CATHETER PLMT 1991 COLONOSCOPY FLX DX W/COLLJ SPEC WHEN PFRMD 08/22/2011 Colonoscopy LAMINECTOMY W/O FFD 07/16 VERT SEG LUMBAR 01/2004 removal of blood clot at site LAPAROSCOPY SURG CHOLECYSTECTOMY 1996 PAST SURGICAL HISTORY OF Right 2017 cataract surgery PAST SURGICAL HISTORY OF Right 2016 Macular hole repair TOTAL ABDOMINAL HYSTERECT W/WO RMVL TUBE OVARY 1987 fibroid TX ECTOPIC ABDOMINAL/VAGINAL APPR 1967 ALLERGIES Codeine, Ambien [Zolpidem Tartrate], Crab, Cymbalta [Duloxetine], Oxaprozin, Prednisone, Vicodin [Hydrocodone-Acetaminophen], and Levaquin [Levofloxacin] MEDICATIONS Current Outpatient Medications Medication Sig blood sugar diagnostic (BLOOD GLUCOSE TEST) test strip Test blood suga(s) 2 times daily. Dx: Type 2 DM - Controlled E11.9 Insulin: No FLUoxetine HCl (PROZAC) 40 mg capsule Take 1 capsule by mouth once daily. benzonatate (TESSALON PERLES) 100 mg capsule Take 1 capsule by mouth three times daily as needed for cough. SITagliptin (JANUVIA) 100 mg tablet Take 1 tablet by mouth once daily. meloxicam (MOBIC) 15 mg tablet Take 1 tablet by mouth once daily. With food. metFORMIN (GLUCOPHAGE) 1,000 mg tablet Take 1 tablet by mouth twice daily with meals. tolterodine ER (DETROL LA) 2 mg 24 hr capsule Take 1 capsule by mouth once daily. buPROPion XL (WELLBUTRIN XL) 150 mg 24 hr tablet Take 1 tablet by mouth once daily. hydroCHLOROthiazide 12.5 mg capsule Take 1 capsule by mouth once daily. sAXagliptin (ONGLYZA) 5 mg tab Take 1 tablet by mouth once daily. atorvastatin (LIPITOR) 40 mg tablet Take 1 tablet by mouth once daily. nystatin (NYSTOP) powder Apply 1 application to affected area twice daily. amLODIPine (NORVASC) 10 mg tablet Take 1 tablet by mouth once daily. valsartan (DIOVAN) 320 mg tablet Take 1 tablet by mouth once daily. ondansetron orally disintegrating (ZOFRAN ODT) 4 mg disintegrating tablet Take 1 tablet by mouth every 6 hours. meclizine (ANTIVERT) 12.5 mg tab Take 1 tablet by mouth every 6 hours as needed (dizziness). DETROL LA 2 mg 24 hr capsule Take 1 capsule by mouth once daily. blood sugar diagnostic (ACCU-CHEK GUILLERMINA) test strip Use twice a day as instructed. DX:E11.40 Insulin: No Magnesium Oxide 250 mg tab Take by mouth daily at bedtime. Blood-Glucose Meter (ACCU-CHEK GUILLERMINA PLUS METER) [facility] [place] Use daily as instructed. DX:E11.40 Insulin: No clobetasol (TEMOVATE) 0.05 % ointment Apply to the severely and persistently itching patch of rash and bumps of left upper back post shoulder area dermatitis once to twice per day as tolerated; AVOID face, eyes/eyelids, and all deep fold areas. Can use for up to 2-4 weeks on a particular area, but then stop or taper off as able (sooner if cleared). (Patient taking differently: as needed. Apply to the severely and persistently itching patch of rash and bumps of left upper back post shoulder area dermatitis once to twice per day as tolerated; AVOID face, eyes/eyelids, and all deep fold areas. Can use for up to 2-4 weeks on a particular area, but then stop or taper off as able (sooner if cleared). ) hyoscyamine sublingual (LEVSIN SL) 0.125 mg subl Dissolve 1 tablet under the tongue every 4 hours as needed. Blood-Glucose Meter (ACCU-CHEK GUILLERMINA MONITORING) [facility] Kit USE DIRECTED gabapentin (NEURONTIN) 300 mg capsule Take 2 capsules by mouth daily at bedtime for 180 days. Patient also takes one pill in the morning as needed No current facility-administered medications for this visit. FAMILY HISTORY Problem Relation Age of Onset Arthritis Mother Hypertension Father Stroke Father Diabetes Father at 71 of diabetes Heart Father LA Arthritis Maternal Grandmother other (Other) Maternal Grandmother parkinsons other (Other) Brother sarcoid other (Other. GB resection.) Daughter Social History Tobacco Use Smoking status: Former Smoker Packs/day: 0.30 Years: 12.00 Pack years: 3.60 Types: Cigarettes Start date: 06/14/1959 Quit date: 01/30/1971 Years since quittin.8 Smokeless tobacco: Never Used Tobacco comment: Parents smoked in childhood home. Spouse non-smoker. Substance Use Topics Alcohol use: No Drug use: No EXAM: BP 134/62 Pulse 80 Resp 16 Wt 63 kg (138 lb 14.4 oz) SpO2 98% BMI 23.84 kg/m PHYSICAL EXAM: General Appearance: Well appearing, alert, in no acute distress, well-hydrated, well nourished.. Skin: Skin color, texture, turgor normal, no suspicious rashes or lesions. Head: Normocephalic, no masses, lesions, tenderness or abnormalities. Eyes: Anicteric sclera. Extraocular movements are intact. Back:no pain to palpation of vertebrae, good flexion and extension, good range of motion, no muscle tenderness. Some left leg weakness. Reflexes difficult to elicit, but appear decreased in the left. No foot drop. Lungs: Lungs clear to auscultation. No wheezing, rhonchi, rales.. Heart: RRR without murmur, gallop, or rubs. No ectopy. ASSESSMENT/PLAN: 1. Chronic left-sided low back pain with left-sided sciatica - ICD9: 724.2, 724.3, 338.29, ICD10: M54.42, G89.29 She is interested in other options for pain management. She would like to try to have this done locally. We will go ahead and refer to pain management and Ortho for further evaluation and treatment. - CONSULT TO PAIN MGT - CONSULT TO ORTHOPAEDICS Discussed treatment plan and patient voices understanding. Patient's questions answered appropriately. Medications and potential side effects were discussed and patient voices understanding. Return to the office as scheduled or as needed for worsening/no improvement. Jeana Mendoza APRN.ANGI This note was partially generated using Mingle360 voice recognition system. Note was reviewed for accuracy. There may be minor misspellings or grammar miscues with Mingle360 voice recognition. documented in this encounter [facility] 11-08-2021 Miscellaneous Notes Protocol Recommended: See PCP within 4 hours. No appt available with Dr. Julian today. Appt made with Jeana Mendoza at 3:20pm today. Thank you. Reason for Disposition [1] SEVERE pain (e.g., excruciating, unable to do any normal activities) AND [2] not improved after 2 hours of pain medicine Answer Assessment - Initial Assessment Questions 1. ONSET: Patient reports she has been dealing with left leg sciatica and low back pain for several months and has recently been ordered PT for this. She states the PT is making her pain worse at times. She rates her left leg pain as a 7-7.5 out of 10 now. Complaining of tingling to left knee, left thigh and left calf at this time. She states it has gotten progressively worse over the last few weeks. Heating pad or use of stationary bicycle helps left leg pain. Denies left leg being cool to touch and states it is normal in color. States her left leg has been itching intensely. 2. LOCATION:as above 3. PAIN: moderate 4. WORK OR EXERCISE:no 5. CAUSE: Patient unsure as to why it's worsening. 6. OTHER SYMPTOMS: Denies chest pain, back pain, breathing difficulty, swelling, rash, or fever. Reports numbness/tingling sensation and weakness to left leg due to not using it as much. She reports she has bladder cancer currently but no change to bladder or bowel function 7. :n/a Protocols used: LEG [id number] documented in this encounter [facility] 11-01-2021 Miscellaneous Notes Addended by: AMARA RAMIRES on: 11/01/2021 11:02 AM Modules accepted: Orders documented in this encounter [facility] 11-01-2021 History of Present illness Narrative Episode Visit Count: 1 Therapist That Will Oversee The Plan Of Care: Amara Ramires PT Start of Care Date: 10/31/21 Onset Date: 10/31/20 Plan of Care Certification Date: 10/31/21 Next Certification Due Date: 12/13/21 Patient Identified by Name and Date of : Yes REHABILITATION AND SPORTS THERAPY PHYSICAL THERAPY EVALUATION PLAN OF CARE: Assessment: Shanel Felton presents with diagnosis of left sided low back pain with left sided sciatica that interferes with standing;walking . She presents with impairments in ADL's, gait, independence in exercise, overall function and strength . Pt with good response to manual lumbar traction . Prognosis for therapy is Fair due to: chronic nature of impairments . She will benefit from skilled therapy services to meet the goals established for this plan of care as noted below. Classification Low Back Pain Subgroup Classification: Core stabilization subgroup: recommended visits 10. Goals for Episode of Care: created on 10/31/21 through 12/13/21 Independent in home exercises. Stand / Walk greater 10 min without pain/symptoms. increasing Patient will be able to tolerate functional activities without increased symptoms. Knowledgeable regarding prophylaxis. Patient will increase strength of core to 4+/5 to allow for improve ability to complete ADLs. Patient Goals: decrease pain , be able to walk and stand to do ADL's more . Planned Interventions, Frequency, and Duration: Current Frequency: 2x/week Duration: 4 weeks Total Number of Visits Planned: 8 Planned Treatment Interventions: Therapeutic exercise (89117);Neuromuscular re-education (20555);Manual therapy (54090);Therapeutic activities (05526);Self-senior care management (57467);Gait Training (07422);Patient/Family/Caregiver Education PLAN FOR NEXT VISIT: Will continue wtih progression of exs and manual traction Patient demonstrates good understanding of plan of care and treatment. The above goals and plan of care were discussed and agreed upon by patient/family. SUBJECTIVE: Shanel Felton is a 81 year old female seen today for Pt notes that she has been in agonizing pain for the last 2 years. Most recently had injection in hip which created alot of pain. Sitting is the only position that does not hurt. Pain in left s-I region which extends to the front and then thigh gets numb with pain down to ankle Patient Goals: decrease pain , be able to walk and stand to do ADL's more . Functional Limitations: standing;walking Prior Level of Function: Independent without limitations Relevant History Past Relevant Surgical Conditions: Total Knee Replacement-Right (right retinal tear surgery, years ago laminectomy surgery multiple levels) Preferred Language: Bangladeshi Employment: Retired Recreation / Current Exercise: bike 45 min twice daily Home Environment Patient Lives With: Self/Alone Home Type: Ranch Entry To Home: Stairs;Without Rail Intake Information: Prescription present Previous Treatment: Heat ;Topicals;Injections Falls Interview: No positive findings with falls interview Red Flags Cancer Red Flags: History of Cancer (undergoing current treatment) Red Flags - Cervical Cancer Red Flags: History of Cancer (undergoing current treatment) Spine History Symptoms Location at Onset: Back Pain is Worse Always: Standing;Walking Pain is Better Always: Lying;Sitting Sleeping Position: Side lying right;Side lying left Sleep Affected by Pain: Pain awakens Pain: Pain Pain Level: 9 Pain Location: Low Back/Lumbar Spine - Left Post Treatment Pain Post Treatment Pain Level: Better Post Treatment Pain Location: Low Back/Lumbar Spine - Left;Leg - Left Post Treatment Symptoms: feels so much better after traction PROMIS Scales Higher is Better 11/10/2015 12/13/2015 04/03/2017 GH Physical - Percentile 15 % 53 % 15 % GH Mental - Percentile 73 % 82 % 82 % T-scores: mean of general population = 50. 5 points is clinically meaningfully difference Percentiles provide an indication of how the patient's score ranks in relation to the general population. Higher percentile rankings indicate better function/quality of life. 50th percentile is the average of the general population and indicates half of respondents had a worse score. T-scores: mean of general population = 50. 5 points is clinically meaningfully difference Percentiles provide an indication of how the patient's score ranks in relation to the general population. Higher percentile rankings indicate better function/quality of life. 50th percentile is the average of the general population and indicates half of respondents had a worse score. OBJECTIVE MEASURES WITH LEVEL OF FUNCTION: Posture / Alignment Posture: Good Spine Observations Spine presents with: decreased lordosis L Lumbar Spine Palpation Tenderness: PSIS (posterior superior iliac spine);Piriformis;Greater trochanter Lumbar Spine AROM Lumbar Flexion: Normal Lumbar Extension: Minimal limitation LE Strength Trunk Strength: 3/5 R Hip Flexion (L2): 5/5 R Knee Extension (L3): 5/5 R Knee Flexion: 5/5 R Ankle Dorsiflexion (L4): 5/5 L Hip Flexion (L2): 4/5 L Knee Extension (L3): 5/5 L Knee Flexion: 5/5 L Ankle Dorsiflexion (L4): 5/5 Functional Strength Functional Strength: trouble with walking greater several minutes, standing limited Special Tests - Hip and Spine Hip and Spine Special Tests: SLR Test;Prashant's Test;SI Tests SLR Test: Right Negative;Left Negative Prashant's Test: Left Negative Supine to Long Sit Test : left is short to long Gait Weight Bearing Status: FWB Gait: Independent Gait Device: None Gait Deviations: Left Lower Extremity Gait Deviations Left Lower Extremity: Stance time decreased;Push off during terminal stance decreased Education: Education Learning Preferences: Demonstration;Explanation;Performa nce;Printed Materials Barriers: None Learning/educational needs: Home exercise program;Plan of Care Education Provided: Yes, see treatment interventions for education provided Education Provided To: Patient Education Mode/Type: Demonstration;Explanation/Discussi on;Literature/Printed Materials;Performance Response to Education/Teach Back: States/Identifies;Return Demonstration TREATMENT: PT Treatment Interventions: Therapeutic Exercise;Manual Therapy Evaluation Therapeutic Exercise: 1: hooklying TA 1x10 2: hooklying TA with bent knee falls outs 1x10 3: hooklying TA with marches 1x10 Skilled Intervention: Patient was educated in proper exercise technique and purpose for exercises. Skilled judgment was provided in selection of appropriate interventions. Provided written instruction for home exercise program to facilitate proper performance and compliance. Correct performance of therapeutic exercises was facilitated with verbal and visual cuing. Patient education as noted. Home Exercise Program Assigned: 1: Exs as outlined above Billing * Evaluation Low Complexity: 1 Unit Therapeutic Exercise Treatment Minutes: 20 Manual TherapyTreatment Minutes: 10 Total Treatment Time Minutes (timed/untimed): 30 Amara Ramires PT documented in this encounter [facility] documented as of this encounter (statuses as of 01/10/2022) [facility]2022 History of Past illness Narrative* Problem Noted Date Resolved Date Acute left-sided low back pain with left-sided s ciatica 10/31/2021 01/08/2022 Acute pancreatitis 05/03/2021 01/08/2022 Overview: 04/28/2021 presented to [facility] ED with complaint of mid abdominal pain, nausea and dry heaves with intermittent vomiting over 2 days[address] Has followed with Dr[address] Rich gastroenterology as outpatient. Vital signs 90 2E-70-59-126/59-100% RA. Exam is unremarkable. WBC 6.6 Hgb 12.9 HCT 40.7 PLT 175, absolute neuts normal, Ig percent 0.80. NA 139 K3.5 CL 100 CO2 28.0 BUN 20H- CRE 1.22H GLU 150 1H. Bili 1.60H, AST 41H, ALT 233H, ALP 135H, lipase 594H, lactic acid 1.7 CT ABD/PEL W0: Calcified granulomata lower lungs, ill-defined hypodensity in the liver previously described as hemangioma on MRI 2014 appearing stable. Gallbladder removed, normal spleen, normal pancreas, normal adrenal glands, normal kidneys, normal stomach and intestines, normal abdominal aorta, vena cava and retroperitoneum, possible lesion or debris or hematoma in urinary bladder poorly identified, uterus normal. Thecal sac surgically decompressed at L3-L4 and L4-L5 with laminectomies. Admitted from emergency department. Problem list: 1. Acute pancreatitis with elevated liver enzymes, IV fluids, plan MRCP and consult to gastroenterology 2. Elevated liver enzymes etiology unclear, unchanged from previous 3. Possible bladder mass, follow-up urology outpatient 4. Persistent nausea and vomiting unclear, IV fluid. 5. Cognitive impairment/dementia on Aricept 6. Type 2 diabetes controlled 7. Essential hypertension: Continue meds. Tendonitis, Achilles, right 02/05/201902/13 Knee joint replacement status, right 07/10/2017 07/11/2017 PONV (postoperative nausea and vomiting) 017 03/03/2019 Primary osteoarthritis of right knee 06/12/2017 07/11/2017 Overview: Added automatically from request for surgery [id number] Acute pain of right knee 05/08/2017 017 Decreased ROM of right knee 05/08/201702/13 Weakness 05/08/2017 03/03/2019 Degeneration of lumbar intervertebral disc 11/0903/03/2019 Uncontrolled type 2 diabetes with neuropathy 10/201508/28/2016 Diabetes mellitus with neuropathy 05/18/2014 03/14/2016 Neurodermatitis, localized 01/02/201303/14 Disturbance of skin sensation 01/02/2013 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/2013 03/14/2016 Lichenification and lichen simplex chronicus 11/28/2016 Eczematous dermatitis 12/09/2011 11/28/2016 Pruritus 12/09/2011 11/28/2016 Xerosis cutis 12/09/2011 03/14/2016 Actinic skin damage 12/09/2011 03/14/2016 Solar lentigo 12/09/2011 03/14/2016 Incontinence of urine 06/20/2011 03/03/2019 Other and unspecified hyperlipidemia 11/29/2009 03/14/2016 Lumbosacral spondylosis without myelopathy 06/2303/14/2016 Thoracic or lumbosacral neuritis or radiculitis, unspecified 01/07/2007 03/14/2016 Unspecified disorder of skin and subcutaneous ti ssue 05/08/2006 03/14/2016 Spinal stenosis, lumbar theresa on, without neurogenic claudication 11/15/2005 03/14/2016 Pain in joint, lower leg 05/15/2005 016 Abdominal migraine, not intractable 01/31/2004 03/14/2016 Diabetic polyneuropathy 01/31/2004 03/14/20 16 documented as of this encounter (statuses as of 01/12/2022) [facility] History of Past illness Narrative* Problem Noted Date Resolved Date Acute left-sided low back pain with left-sided s ciatica 10/31/2021 01/08/2022 Acute pancreatitis 05/03/2021 01/08/2022 Overview: 04/28/2021 presented to [facility] ED with complaint of mid abdominal pain, nausea and dry heaves with intermittent vomiting over 2 days. Has followed with Dr. Rich gastroenterology as outpatient. Vital signs 90 0I-37-44-126/59-100% RA. Exam is unremarkable. WBC 6.6 Hgb 12.9 HCT 40.7 PLT 175, absolute neuts normal, Ig percent 0.80. NA 139 K3.5 CL 100 CO2 28.0 BUN 20H- CRE 1.22H GLU 150 1H. Bili 1.60H, AST 41H, ALT 233H, ALP 135H, lipase 594H, lactic acid 1.7 CT ABD/PEL W0: Calcified granulomata lower lungs, ill-defined hypodensity in the liver previously described as hemangioma on MRI 2014 appearing stable. Gallbladder removed, normal spleen, normal pancreas, normal adrenal glands, normal kidneys, normal stomach and intestines, normal abdominal aorta, vena cava and retroperitoneum, possible lesion or debris or hematoma in urinary bladder poorly identified, uterus normal. Thecal sac surgically decompressed at L3-L4 and L4-L5 with laminectomies. Admitted from emergency department. Problem list: 1. Acute pancreatitis with elevated liver enzymes, IV fluids, plan MRCP and consult to gastroenterology 2. Elevated liver enzymes etiology unclear, unchanged from previous 3. Possible bladder mass, follow-up urology outpatient 4. Persistent nausea and vomiting unclear, IV fluid. 5. Cognitive impairment/dementia on Aricept 6. Type 2 diabetes controlled 7. Essential hypertension: Continue meds. Tendonitis, Achilles, right 02/05/201902/13 Knee joint replacement status, right 07/10/2017 07/11/2017 PONV (postoperative nausea and vomiting) 017 03/03/2019 Primary osteoarthritis of right knee 06/12/2017 07/11/2017 Overview: Added automatically from request for surgery [id number] Acute pain of right knee 05/08/2017 017 Decreased ROM of right knee 05/08/201702/13 Weakness 05/08/2017 03/03/2019 Degeneration of lumbar intervertebral disc 11/0903/03/2019 Uncontrolled type 2 diabetes with neuropathy 10/201508/28/2016 Diabetes mellitus with neuropathy 05/18/2014 03/14/2016 Neurodermatitis, localized 01/02/201303/14 Disturbance of skin sensation 01/02/2013 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/2013 03/14/2016 Lichenification and lichen simplex chronicus 11/28/2016 Eczematous dermatitis 12/09/2011 11/28/2016 Pruritus 12/09/2011 11/28/2016 Xerosis cutis 12/09/2011 03/14/2016 Actinic skin damage 12/09/2011 03/14/2016 Solar lentigo 12/09/2011 03/14/2016 Incontinence of urine 06/20/2011 03/03/2019 Other and unspecified hyperlipidemia 11/29/2009 03/14/2016 Lumbosacral spondylosis without myelopathy 06/2303/14/2016 Thoracic or lumbosacral neuritis or radiculitis, unspecified 01/07/2007 03/14/2016 Unspecified disorder of skin and subcutaneous ti ssue 05/08/2006 03/14/2016 Spinal stenosis, lumbar theresa on, without neurogenic claudication 11/15/2005 03/14/2016 Pain in joint, lower leg 05/15/2005 016 Abdominal migraine, not intractable 01/31/2004 03/14/2016 Diabetic polyneuropathy 01/31/2004 03/14/20 16 documented as of this encounter (statuses as of 01/18/2022) [facility]04-19-2022 History of Past illness Narrative* Problem Noted Date Resolved Date Acute left-sided low back pain with left-sided s ciatica 10/31/2021 01/08/2022 Acute pancreatitis 05/03/2021 01/08/2022 Overview: 04/28/2021 presented to [facility] ED with complaint of mid abdominal pain, nausea and dry heaves with intermittent vomiting over 2 days. Has followed with Dr. Rich gastroenterology as outpatient. Vital signs 90 3E-88-47-126/59-100% RA. Exam is unremarkable. WBC 6.6 Hgb 12.9 HCT 40.7 PLT 175, absolute neuts normal, Ig percent 0.80. NA 139 K3.5 CL 100 CO2 28.0 BUN 20H- CRE 1.22H GLU 150 1H. Bili 1.60H, AST 41H, ALT 233H, ALP 135H, lipase 594H, lactic acid 1.7 CT ABD/PEL W0: Calcified granulomata lower lungs, ill-defined hypodensity in the liver previously described as hemangioma on MRI 2013 appearing stable. Gallbladder removed, normal spleen, normal pancreas, normal adrenal glands, normal kidneys, normal stomach and intestines, normal abdominal aorta, vena cava and retroperitoneum, possible lesion or debris or hematoma in urinary bladder poorly identified, uterus normal. Thecal sac surgically decompressed at L3-L4 and L4-L5 with laminectomies. Admitted from emergency department. Problem list: 1. Acute pancreatitis with elevated liver enzymes, IV fluids, plan MRCP and consult to gastroenterology 2. Elevated liver enzymes etiology unclear, unchanged from previous 3. Possible bladder mass, follow-up urology outpatient 4. Persistent nausea and vomiting unclear, IV fluid. 5. Cognitive impairment/dementia on Aricept 6. Type 2 diabetes controlled 7. Essential hypertension: Continue meds. Tendonitis, Achilles, right 02/05/201902/13 Knee joint replacement status, right 07/10/2017 07/11/2017 PONV (postoperative nausea and vomiting) 017 03/03/2019 Primary osteoarthritis of right knee 06/12/2017 07/11/2017 Overview: Added automatically from request for surgery [id number] Acute pain of right knee 05/08/2017 017 Decreased ROM of right knee 05/08/201702/13 Weakness 05/08/2017 03/03/2019 Degeneration of lumbar intervertebral disc 11/0903/03/2019 Uncontrolled type 2 diabetes with neuropathy 10/201508/28/2016 Diabetes mellitus with neuropathy 05/18/2014 03/14/2016 Neurodermatitis, localized 01/02/201303/14 Disturbance of skin sensation 01/02/2013 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/2013 03/14/2016 Lichenification and lichen simplex chronicus 11/28/2016 Eczematous dermatitis 12/09/2011 11/28/2016 Pruritus 12/09/2011 11/28/2016 Xerosis cutis 12/09/2011 03/14/2016 Actinic skin damage 12/09/2011 03/14/2016 Solar lentigo 12/09/2011 03/14/2016 Incontinence of urine 06/20/2011 03/03/2019 Other and unspecified hyperlipidemia 11/29/2009 03/14/2016 Lumbosacral spondylosis without myelopathy 06/2303/14/2016 Thoracic or lumbosacral neuritis or radiculitis, unspecified 01/07/2007 03/14/2016 Unspecified disorder of skin and subcutaneous ti ssue 05/08/2006 03/14/2016 Spinal stenosis, lumbar theresa on, without neurogenic claudication 11/15/2005 03/14/2016 Pain in joint, lower leg 05/15/2005 016 Abdominal migraine, not intractable 01/31/2004 03/14/2016 Diabetic polyneuropathy 01/31/2004 03/14/20 16 documented as of this encounter (statuses as of 02/01/2022) [facility]04-19-2022 History of Past illness Narrative* Problem Noted Date Resolved Date Acute left-sided low back pain with left-sided s ciatica 10/31/2021 01/08/2022 Acute pancreatitis 05/03/2021 01/08/2022 Overview: 04/28/2021 presented to [facility] ED with complaint of mid abdominal pain, nausea and dry heaves with intermittent vomiting over 2 days. Has followed with Dr. Rich gastroenterology as outpatient. Vital signs 90 4R-70-13-126/59-100% RA. Exam is unremarkable. WBC 6.6 Hgb 12.9 HCT 40.7 PLT 175, absolute neuts normal, Ig percent 0.80. NA 139 K3.5 CL 100 CO2 28.0 BUN 20H- CRE 1.22H GLU 150 1H. Bili 1.60H, AST 41H, ALT 233H, ALP 135H, lipase 594H, lactic acid 1.7 CT ABD/PEL W0: Calcified granulomata lower lungs, ill-defined hypodensity in the liver previously described as hemangioma on MRI 2014 appearing stable. Gallbladder removed, normal spleen, normal pancreas, normal adrenal glands, normal kidneys, normal stomach and intestines, normal abdominal aorta, vena cava and retroperitoneum, possible lesion or debris or hematoma in urinary bladder poorly identified, uterus normal. Thecal sac surgically decompressed at L3-L4 and L4-L5 with laminectomies. Admitted from emergency department. Problem list: 1. Acute pancreatitis with elevated liver enzymes, IV fluids, plan MRCP and consult to gastroenterology 2. Elevated liver enzymes etiology unclear, unchanged from previous 3. Possible bladder mass, follow-up urology outpatient 4. Persistent nausea and vomiting unclear, IV fluid. 5. Cognitive impairment/dementia on Aricept 6. Type 2 diabetes controlled 7. Essential hypertension: Continue meds. Tendonitis, Achilles, right 02/05/201902/13 Knee joint replacement status, right 07/10/2017 07/11/2017 PONV (postoperative nausea and vomiting) 017 03/03/2019 Primary osteoarthritis of right knee 06/12/2017 07/11/2017 Overview: Added automatically from request for surgery [id number] Acute pain of right knee 05/08/2017 017 Decreased ROM of right knee 05/08/201702/13 Weakness 05/08/2017 03/03/2019 Degeneration of lumbar intervertebral disc 11/0903/03/2019 Uncontrolled type 2 diabetes with neuropathy 10/201508/28/2016 Diabetes mellitus with neuropathy 05/18/2014 03/14/2016 Neurodermatitis, localized 01/02/201303/14 Disturbance of skin sensation 01/02/2013 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/2013 03/14/2016 Lichenification and lichen simplex chronicus 11/28/2016 Eczematous dermatitis 12/09/2011 11/28/2016 Pruritus 12/09/2011 11/28/2016 Xerosis cutis 12/09/2011 03/14/2016 Actinic skin damage 12/09/2011 03/14/2016 Solar lentigo 12/09/2011 03/14/2016 Incontinence of urine 06/20/2011 03/03/2019 Other and unspecified hyperlipidemia 11/29/2009 03/14/2016 Lumbosacral spondylosis without myelopathy 06/2303/14/2016 Thoracic or lumbosacral neuritis or radiculitis, unspecified 01/07/2007 03/14/2016 Unspecified disorder of skin and subcutaneous ti ssue 05/08/2006 03/14/2016 Spinal stenosis, lumbar theresa on, without neurogenic claudication 11/15/2005 03/14/2016 Pain in joint, lower leg 05/15/2005 016 Abdominal migraine, not intractable 01/31/2004 03/14/2016 Diabetic polyneuropathy 01/31/2004 03/14/20 16 documented as of this encounter (statuses as of 02/09/2022) [facility]04-19-2022 History of Past illness Narrative* Problem Noted Date Resolved Date Acute left-sided low back pain with left-sided s ciatica 10/31/2021 01/08/2022 Acute pancreatitis 05/03/2021 01/08/2022 Overview: 04/28/2021 presented to [facility] ED with complaint of mid abdominal pain, nausea and dry heaves with intermittent vomiting over 2 days. Has followed with Dr. Rich gastroenterology as outpatient. Vital signs 90 8C-05-74-126/59-100% RA. Exam is unremarkable. WBC 6.6 Hgb 12.9 HCT 40.7 PLT 175, absolute neuts normal, Ig percent 0.80. NA 139 K3.5 CL 100 CO2 28.0 BUN 20H- CRE 1.22H GLU 150 1H. Bili 1.60H, AST 41H, ALT 233H, ALP 135H, lipase 594H, lactic acid 1.7 CT ABD/PEL W0: Calcified granulomata lower lungs, ill-defined hypodensity in the liver previously described as hemangioma on MRI 2014 appearing stable. Gallbladder removed, normal spleen, normal pancreas, normal adrenal glands, normal kidneys, normal stomach and intestines, normal abdominal aorta, vena cava and retroperitoneum, possible lesion or debris or hematoma in urinary bladder poorly identified, uterus normal. Thecal sac surgically decompressed at L3-L4 and L4-L5 with laminectomies. Admitted from emergency department. Problem list: 1. Acute pancreatitis with elevated liver enzymes, IV fluids, plan MRCP and consult to gastroenterology 2. Elevated liver enzymes etiology unclear, unchanged from previous 3. Possible bladder mass, follow-up urology outpatient 4. Persistent nausea and vomiting unclear, IV fluid. 5. Cognitive impairment/dementia on Aricept 6. Type 2 diabetes controlled 7. Essential hypertension: Continue meds. Tendonitis, Achilles, right 02/05/201902/13 Knee joint replacement status, right 07/10/2017 07/11/2017 PONV (postoperative nausea and vomiting) 017 03/03/2019 Primary osteoarthritis of right knee 06/12/2017 07/11/2017 Overview: Added automatically from request for surgery [id number] Acute pain of right knee 05/08/2017 017 Decreased ROM of right knee 05/08/201702/13 Weakness 05/08/2017 03/03/2019 Degeneration of lumbar intervertebral disc 11/0903/03/2019 Uncontrolled type 2 diabetes with neuropathy 10/201508/28/2016 Diabetes mellitus with neuropathy 05/18/2014 03/14/2016 Neurodermatitis, localized 01/02/201303/14 Disturbance of skin sensation 01/02/2013 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/2013 03/14/2016 Lichenification and lichen simplex chronicus 11/28/2016 Eczematous dermatitis 12/09/2011 11/28/2016 Pruritus 12/09/2011 11/28/2016 Xerosis cutis 12/09/2011 03/14/2016 Actinic skin damage 12/09/2011 03/14/2016 Solar lentigo 12/09/2011 03/14/2016 Incontinence of urine 06/20/2011 03/03/2019 Other and unspecified hyperlipidemia 11/29/2009 03/14/2016 Lumbosacral spondylosis without myelopathy 06/2303/14/2016 Thoracic or lumbosacral neuritis or radiculitis, unspecified 01/07/2007 03/14/2016 Unspecified disorder of skin and subcutaneous ti ssue 05/08/2006 03/14/2016 Spinal stenosis, lumbar theresa on, without neurogenic claudication 11/15/2005 03/14/2016 Pain in joint, lower leg 05/15/2005 016 Abdominal migraine, not intractable 01/31/2004 03/14/2016 Diabetic polyneuropathy 01/31/2004 03/14/20 16 documented as of this encounter (statuses as of 02/16/2022) [facility]04-19-2022 History of Past illness Narrative* Problem Noted Date Resolved Date Acute left-sided low back pain with left-sided s ciatica 10/31/2021 01/08/2022 Acute pancreatitis 05/03/2021 01/08/2022 Overview: 04/28/2021 presented to [facility] ED with complaint of mid abdominal pain, nausea and dry heaves with intermittent vomiting over 2 days. Has followed with Dr. Rich gastroenterology as outpatient. Vital signs 90 8O-07-53-126/59-100% RA. Exam is unremarkable. WBC 6.6-Hgb 12.9-HCT 40.7-PLT 175, absolute neuts normal, Ig percent 0.80. NA 139-K3.5-CL 100-CO2 28.0-BUN 20H--CRE 1.22H-GLU 150 1H. Bili 1.60H, AST 41H, ALT 233H, ALP 135H, lipase 594H, lactic acid 1.7 CT ABD/PEL W0: Calcified granulomata lower lungs, ill-defined hypodensity in the liver previously described as hemangioma on MRI 2013 appearing stable. Gallbladder removed, normal spleen, normal pancreas, normal adrenal glands, normal kidneys, normal stomach and intestines, normal abdominal aorta, vena cava and retroperitoneum, possible lesion or debris or hematoma in urinary bladder poorly identified, uterus normal. Thecal sac surgically decompressed at L3-L4 and L4-L5 with laminectomies. Admitted from emergency department. Problem list: 1. Acute pancreatitis with elevated liver enzymes, IV fluids, plan MRCP and consult to gastroenterology 2. Elevated liver enzymes etiology unclear, unchanged from previous 3. Possible bladder mass, follow-up urology outpatient 4. Persistent nausea and vomiting unclear, IV fluid. 5. Cognitive impairment/dementia on Aricept 6. Type 2 diabetes controlled 7. Essential hypertension: Continue meds. Tendonitis, Achilles, right 02/05/201902/13 Knee joint replacement status, right 07/10/2017 07/11/2017 PONV (postoperative nausea and vomiting) 017 03/03/2019 Primary osteoarthritis of right knee 06/12/2017 07/11/2017 Overview: Added automatically from request for surgery [id number] Acute pain of right knee 05/08/2017 017 Decreased ROM of right knee 05/08/201702/13 Weakness 05/08/2017 03/03/2019 Degeneration of lumbar intervertebral disc 11/0903/03/2019 Uncontrolled type 2 diabetes with neuropathy 10/201508/28/2016 Diabetes mellitus with neuropathy 05/18/2014 03/14/2016 Neurodermatitis, localized 01/02/201303/14 Disturbance of skin sensation 01/02/2013 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/2013 03/14/2016 Lichenification and lichen simplex chronicus 11/28/2016 Eczematous dermatitis 12/09/2011 11/28/2016 Pruritus 12/09/2011 11/28/2016 Xerosis cutis 12/09/2011 03/14/2016 Actinic skin damage 12/09/2011 03/14/2016 Solar lentigo 12/09/2011 03/14/2016 Incontinence of urine 06/20/2011 03/03/2019 Other and unspecified hyperlipidemia 11/29/2009 03/14/2016 Lumbosacral spondylosis without myelopathy 06/2303/14/2016 Thoracic or lumbosacral neuritis or radiculitis, unspecified 01/07/2007 03/14/2016 Unspecified disorder of skin and subcutaneous ti ssue 05/08/2006 03/14/2016 Spinal stenosis, lumbar theresa on, without neurogenic claudication 11/15/2005 03/14/2016 Pain in joint, lower leg 05/15/2005 016 Abdominal migraine, not intractable 01/31/2004 03/14/2016 Diabetic polyneuropathy 01/31/2004 03/14/20 16 documented as of this encounter (statuses as of 03/07/2022) [facility] History of Past illness Narrative* Problem Noted Date Resolved Date Acute left-sided low back pain with left-sided s ciatica 10/31/2021 01/08/2022 Acute pancreatitis 05/03/2021 01/08/2022 Overview: 04/28/2021 presented to [facility] ED with complaint of mid abdominal pain, nausea and dry heaves with intermittent vomiting over 2 days. Has followed with Dr. Rich gastroenterology as outpatient. Vital signs 90 7S-76-96-126/59-100% RA. Exam is unremarkable. WBC 6.6-Hgb 12.9-HCT 40.7-PLT 175, absolute neuts normal, Ig percent 0.80. NA 139-K3.5-CL 100-CO2 28.0-BUN 20H--CRE 1.22H-GLU 150 1H. Bili 1.60H, AST 41H, ALT 233H, ALP 135H, lipase 594H, lactic acid 1.7 CT ABD/PEL W0: Calcified granulomata lower lungs, ill-defined hypodensity in the liver previously described as hemangioma on MRI 2013 appearing stable. Gallbladder removed, normal spleen, normal pancreas, normal adrenal glands, normal kidneys, normal stomach and intestines, normal abdominal aorta, vena cava and retroperitoneum, possible lesion or debris or hematoma in urinary bladder poorly identified, uterus normal. Thecal sac surgically decompressed at L3-L4 and L4-L5 with laminectomies. Admitted from emergency department. Problem list: 1. Acute pancreatitis with elevated liver enzymes, IV fluids, plan MRCP and consult to gastroenterology 2. Elevated liver enzymes etiology unclear, unchanged from previous 3. Possible bladder mass, follow-up urology outpatient 4. Persistent nausea and vomiting unclear, IV fluid. 5. Cognitive impairment/dementia on Aricept 6. Type 2 diabetes controlled 7. Essential hypertension: Continue meds. Tendonitis, Achilles, right 02/05/201902/13 Knee joint replacement status, right 07/10/2017 07/11/2017 PONV (postoperative nausea and vomiting) 017 03/03/2019 Primary osteoarthritis of right knee 06/12/2017 07/11/2017 Overview: Added automatically from request for surgery [id number] Acute pain of right knee 05/08/2017 017 Decreased ROM of right knee 05/08/201702/13 Weakness 05/08/2017 03/03/2019 Degeneration of lumbar intervertebral disc 11/0903/03/2019 Uncontrolled type 2 diabetes with neuropathy 10/201508/28/2016 Diabetes mellitus with neuropathy 05/18/2014 03/14/2016 Neurodermatitis, localized 01/02/201303/14 Disturbance of skin sensation 01/02/2013 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/2013 03/14/2016 Lichenification and lichen simplex chronicus 11/28/2016 Eczematous dermatitis 12/09/2011 11/28/2016 Pruritus 12/09/2011 11/28/2016 Xerosis cutis 12/09/2011 03/14/2016 Actinic skin damage 12/09/2011 03/14/2016 Solar lentigo 12/09/2011 03/14/2016 Incontinence of urine 06/20/2011 03/03/2019 Other and unspecified hyperlipidemia 11/29/2009 03/14/2016 Lumbosacral spondylosis without myelopathy 06/2303/14/2016 Thoracic or lumbosacral neuritis or radiculitis, unspecified 01/07/2007 03/14/2016 Unspecified disorder of skin and subcutaneous ti ssue 05/08/2006 03/14/2016 Spinal stenosis, lumbar theresa on, without neurogenic claudication 11/15/2005 03/14/2016 Pain in joint, lower leg 05/15/2005 016 Abdominal migraine, not intractable 01/31/2004 03/14/2016 Diabetic polyneuropathy 01/31/2004 03/14/20 16 documented as of this encounter (statuses as of 03/12/2022) [facility] History of Past illness Narrative* Problem Noted Date Resolved Date Acute left-sided low back pain with left-sided s ciatica 10/31/2021 01/08/2022 Acute pancreatitis 05/03/2021 01/08/2022 Overview: 04/28/2021 presented to [facility] ED with complaint of mid abdominal pain, nausea and dry heaves with intermittent vomiting over 2 days. Has followed with Dr. Rich gastroenterology as outpatient. Vital signs 90 4Y-22-86-126/59-100% RA. Exam is unremarkable. WBC 6.6-Hgb 12.9-HCT 40.7-PLT 175, absolute neuts normal, Ig percent 0.80. NA 139-K3.5-CL 100-CO2 28.0-BUN 20H--CRE 1.22H-GLU 150 1H. Bili 1.60H, AST 41H, ALT 233H, ALP 135H, lipase 594H, lactic acid 1.7 CT ABD/PEL W0: Calcified granulomata lower lungs, ill-defined hypodensity in the liver previously described as hemangioma on MRI 2014 appearing stable. Gallbladder removed, normal spleen, normal pancreas, normal adrenal glands, normal kidneys, normal stomach and intestines, normal abdominal aorta, vena cava and retroperitoneum, possible lesion or debris or hematoma in urinary bladder poorly identified, uterus normal. Thecal sac surgically decompressed at L3-L4 and L4-L5 with laminectomies. Admitted from emergency department. Problem list: 1. Acute pancreatitis with elevated liver enzymes, IV fluids, plan MRCP and consult to gastroenterology 2. Elevated liver enzymes etiology unclear, unchanged from previous 3. Possible bladder mass, follow-up urology outpatient 4. Persistent nausea and vomiting unclear, IV fluid. 5. Cognitive impairment/dementia on Aricept 6. Type 2 diabetes controlled 7. Essential hypertension: Continue meds. Tendonitis, Achilles, right 02/05/201902/13 Knee joint replacement status, right 07/10/2017 07/11/2017 PONV (postoperative nausea and vomiting) 017 03/03/2019 Primary osteoarthritis of right knee 06/12/2017 07/11/2017 Overview: Added automatically from request for surgery [id number] Acute pain of right knee 05/08/2017 017 Decreased ROM of right knee 05/08/201702/13 Weakness 05/08/2017 03/03/2019 Degeneration of lumbar intervertebral disc 11/0903/03/2019 Uncontrolled type 2 diabetes with neuropathy 10/201508/28/2016 Diabetes mellitus with neuropathy 05/18/2014 03/14/2016 Neurodermatitis, localized 01/02/201303/14 Disturbance of skin sensation 01/02/2013 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/2013 03/14/2016 Lichenification and lichen simplex chronicus 11/28/2016 Eczematous dermatitis 12/09/2011 11/28/2016 Pruritus 12/09/2011 11/28/2016 Xerosis cutis 12/09/2011 03/14/2016 Actinic skin damage 12/09/2011 03/14/2016 Solar lentigo 12/09/2011 03/14/2016 Incontinence of urine 06/20/2011 03/03/2019 Other and unspecified hyperlipidemia 11/29/2009 03/14/2016 Lumbosacral spondylosis without myelopathy 06/2303/14/2016 Thoracic or lumbosacral neuritis or radiculitis, unspecified 01/07/2007 03/14/2016 Unspecified disorder of skin and subcutaneous ti ssue 05/08/2006 03/14/2016 Spinal stenosis, lumbar theresa on, without neurogenic claudication 11/15/2005 03/14/2016 Pain in joint, lower leg 05/15/2005 016 Abdominal migraine, not intractable 01/31/2004 03/14/2016 Diabetic polyneuropathy 01/31/2004 03/14/20 16 documented as of this encounter (statuses as of 03/12/2022) [facility] History of Past illness Narrative* Problem Noted Date Resolved Date Acute left-sided low back pain with left-sided s ciatica 10/31/2021 01/08/2022 Acute pancreatitis 05/03/2021 01/08/2022 Overview: 04/28/2021 presented to [facility] ED with complaint of mid abdominal pain, nausea and dry heaves with intermittent vomiting over 2 days. Has followed with Dr. Rich gastroenterology as outpatient. Vital signs 90 3I-82-19-126/59-100% RA. Exam is unremarkable. WBC 6.6-Hgb 12.9-HCT 40.7-PLT 175, absolute neuts normal, Ig percent 0.80. NA 139-K3.5-CL 100-CO2 28.0-BUN 20H--CRE 1.22H-GLU 150 1H. Bili 1.60H, AST 41H, ALT 233H, ALP 135H, lipase 594H, lactic acid 1.7 CT ABD/PEL W0: Calcified granulomata lower lungs, ill-defined hypodensity in the liver previously described as hemangioma on MRI 2014 appearing stable. Gallbladder removed, normal spleen, normal pancreas, normal adrenal glands, normal kidneys, normal stomach and intestines, normal abdominal aorta, vena cava and retroperitoneum, possible lesion or debris or hematoma in urinary bladder poorly identified, uterus normal. Thecal sac surgically decompressed at L3-L4 and L4-L5 with laminectomies. Admitted from emergency department. Problem list: 1. Acute pancreatitis with elevated liver enzymes, IV fluids, plan MRCP and consult to gastroenterology 2. Elevated liver enzymes etiology unclear, unchanged from previous 3. Possible bladder mass, follow-up urology outpatient 4. Persistent nausea and vomiting unclear, IV fluid. 5. Cognitive impairment/dementia on Aricept 6. Type 2 diabetes controlled 7. Essential hypertension: Continue meds. Tendonitis, Achilles, right 02/05/201902/13 Knee joint replacement status, right 07/10/2017 07/11/2017 PONV (postoperative nausea and vomiting) 017 03/03/2019 Primary osteoarthritis of right knee 06/12/2017 07/11/2017 Overview: Added automatically from request for surgery [id number] Acute pain of right knee 05/08/2017 017 Decreased ROM of right knee 05/08/201702/13 Weakness 05/08/2017 03/03/2019 Degeneration of lumbar intervertebral disc 11/0903/03/2019 Uncontrolled type 2 diabetes with neuropathy 10/201508/28/2016 Diabetes mellitus with neuropathy 05/18/2014 03/14/2016 Neurodermatitis, localized 01/02/201303/14 Disturbance of skin sensation 01/02/2013 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/2013 03/14/2016 Lichenification and lichen simplex chronicus 11/28/2016 Eczematous dermatitis 12/09/2011 11/28/2016 Pruritus 12/09/2011 11/28/2016 Xerosis cutis 12/09/2011 03/14/2016 Actinic skin damage 12/09/2011 03/14/2016 Solar lentigo 12/09/2011 03/14/2016 Incontinence of urine 06/20/2011 03/03/2019 Other and unspecified hyperlipidemia 11/29/2009 03/14/2016 Lumbosacral spondylosis without myelopathy 06/2303/14/2016 Thoracic or lumbosacral neuritis or radiculitis, unspecified 01/07/2007 03/14/2016 Unspecified disorder of skin and subcutaneous ti ssue 05/08/2006 03/14/2016 Spinal stenosis, lumbar theresa on, without neurogenic claudication 11/15/2005 03/14/2016 Pain in joint, lower leg 05/15/2005 016 Abdominal migraine, not intractable 01/31/2004 03/14/2016 Diabetic polyneuropathy 01/31/2004 03/14/20 16 documented as of this encounter (statuses as of 03/21/2022) [facility]04-19-2022 History of Past illness Narrative* Problem Noted Date Resolved Date Acute left-sided low back pain with left-sided s ciatica 10/31/2021 01/08/2022 Acute pancreatitis 05/03/2021 01/08/2022 Overview: 04/28/2021 presented to [facility] ED with complaint of mid abdominal pain, nausea and dry heaves with intermittent vomiting over 2 days[address] Has followed with Dr. Rich gastroenterology as outpatient. Vital signs 90 3E-73-75-126/59-100% RA. Exam is unremarkable. WBC 6.6-Hgb 12.9-HCT 40.7-PLT 175, absolute neuts normal, Ig percent 0.80. NA 139-K3.5-CL 100-CO2 28.0-BUN 20H--CRE 1.22H-GLU 150 1H. Bili 1.60H, AST 41H, ALT 233H, ALP 135H, lipase 594H, lactic acid 1.7 CT ABD/PEL W0: Calcified granulomata lower lungs, ill-defined hypodensity in the liver previously described as hemangioma on MRI 2014 appearing stable. Gallbladder removed, normal spleen, normal pancreas, normal adrenal glands, normal kidneys, normal stomach and intestines, normal abdominal aorta, vena cava and retroperitoneum, possible lesion or debris or hematoma in urinary bladder poorly identified, uterus normal. Thecal sac surgically decompressed at L3-L4 and L4-L5 with laminectomies. Admitted from emergency department. Problem list: 1. Acute pancreatitis with elevated liver enzymes, IV fluids, plan MRCP and consult to gastroenterology 2. Elevated liver enzymes etiology unclear, unchanged from previous 3. Possible bladder mass, follow-up urology outpatient 4. Persistent nausea and vomiting unclear, IV fluid. 5. Cognitive impairment/dementia on Aricept 6. Type 2 diabetes controlled 7. Essential hypertension: Continue meds. Tendonitis, Achilles, right 02/05/201902/13 Knee joint replacement status, right 07/10/2017 07/11/2017 PONV (postoperative nausea and vomiting) 017 03/03/2019 Primary osteoarthritis of right knee 06/12/2017 07/11/2017 Overview: Added automatically from request for surgery [id number] Acute pain of right knee 05/08/2017 017 Decreased ROM of right knee 05/08/201702/13 Weakness 05/08/2017 03/03/2019 Degeneration of lumbar intervertebral disc 11/0903/03/2019 Uncontrolled type 2 diabetes with neuropathy 10/201508/28/2016 Diabetes mellitus with neuropathy 05/18/2014 03/14/2016 Neurodermatitis, localized 01/02/201303/14 Disturbance of skin sensation 01/02/2013 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/2013 03/14/2016 Lichenification and lichen simplex chronicus 11/28/2016 Eczematous dermatitis 12/09/2011 11/28/2016 Pruritus 12/09/2011 11/28/2016 Xerosis cutis 12/09/2011 03/14/2016 Actinic skin damage 12/09/2011 03/14/2016 Solar lentigo 12/09/2011 03/14/2016 Incontinence of urine 06/20/2011 03/03/2019 Other and unspecified hyperlipidemia 11/29/2009 03/14/2016 Lumbosacral spondylosis without myelopathy 06/2303/14/2016 Thoracic or lumbosacral neuritis or radiculitis, unspecified 01/07/2007 03/14/2016 Unspecified disorder of skin and subcutaneous ti ssue 05/08/2006 03/14/2016 Spinal stenosis, lumbar theresa on, without neurogenic claudication 11/15/2005 03/14/2016 Pain in joint, lower leg 05/15/2005 016 Abdominal migraine, not intractable 01/31/2004 03/14/2016 Diabetic polyneuropathy 01/31/2004 03/14/20 16 documented as of this encounter (statuses as of 03/22/2022) [facility]04-19-2022 History of Past illness Narrative* Problem Noted Date Resolved Date Acute left-sided low back pain with left-sided s ciatica 10/31/2021 01/08/2022 Acute pancreatitis 05/03/2021 01/08/2022 Overview: 04/28/2021 presented to [facility] ED with complaint of mid abdominal pain, nausea and dry heaves with intermittent vomiting over 2 days. Has followed with Dr. Rich gastroenterology as outpatient. Vital signs 90 5Q-92-54-126/59-100% RA. Exam is unremarkable. WBC 6.6-Hgb 12.9-HCT 40.7-PLT 175, absolute neuts normal, Ig percent 0.80. NA 139-K3.5-CL 100-CO2 28.0-BUN 20H--CRE 1.22H-GLU 150 1H. Bili 1.60H, AST 41H, ALT 233H, ALP 135H, lipase 594H, lactic acid 1.7 CT ABD/PEL W0: Calcified granulomata lower lungs, ill-defined hypodensity in the liver previously described as hemangioma on MRI 2014 appearing stable. Gallbladder removed, normal spleen, normal pancreas, normal adrenal glands, normal kidneys, normal stomach and intestines, normal abdominal aorta, vena cava and retroperitoneum, possible lesion or debris or hematoma in urinary bladder poorly identified, uterus normal. Thecal sac surgically decompressed at L3-L4 and L4-L5 with laminectomies. Admitted from emergency department. Problem list: 1. Acute pancreatitis with elevated liver enzymes, IV fluids, plan MRCP and consult to gastroenterology 2. Elevated liver enzymes etiology unclear, unchanged from previous 3. Possible bladder mass, follow-up urology outpatient 4. Persistent nausea and vomiting unclear, IV fluid. 5. Cognitive impairment/dementia on Aricept 6. Type 2 diabetes controlled 7. Essential hypertension: Continue meds. Tendonitis, Achilles, right 02/05/201902/13 Knee joint replacement status, right 07/10/2017 07/11/2017 PONV (postoperative nausea and vomiting) 017 03/03/2019 Primary osteoarthritis of right knee 06/12/2017 07/11/2017 Overview: Added automatically from request for surgery [id number] Acute pain of right knee 05/08/2017 017 Decreased ROM of right knee 05/08/201702/13 Weakness 05/08/2017 03/03/2019 Degeneration of lumbar intervertebral disc 11/0903/03/2019 Uncontrolled type 2 diabetes with neuropathy 10/201508/28/2016 Diabetes mellitus with neuropathy 05/18/2014 03/14/2016 Neurodermatitis, localized 01/02/201303/14 Disturbance of skin sensation 01/02/2013 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/2013 03/14/2016 Lichenification and lichen simplex chronicus 11/28/2016 Eczematous dermatitis 12/09/2011 11/28/2016 Pruritus 12/09/2011 11/28/2016 Xerosis cutis 12/09/2011 03/14/2016 Actinic skin damage 12/09/2011 03/14/2016 Solar lentigo 12/09/2011 03/14/2016 Incontinence of urine 06/20/2011 03/03/2019 Other and unspecified hyperlipidemia 11/29/2009 03/14/2016 Lumbosacral spondylosis without myelopathy 06/2303/14/2016 Thoracic or lumbosacral neuritis or radiculitis, unspecified 01/07/2007 03/14/2016 Unspecified disorder of skin and subcutaneous ti ssue 05/08/2006 03/14/2016 Spinal stenosis, lumbar theresa on, without neurogenic claudication 11/15/2005 03/14/2016 Pain in joint, lower leg 05/15/2005 016 Abdominal migraine, not intractable 01/31/2004 03/14/2016 Diabetic polyneuropathy 01/31/2004 03/14/20 16 documented as of this encounter (statuses as of 03/23/2022) [facility]04-19-2022 History of Past illness Narrative* Problem Noted Date Resolved Date Acute left-sided low back pain with left-sided s ciatica 10/31/2021 01/08/2022 Acute pancreatitis 05/03/2021 01/08/2022 Overview: 04/28/2021 presented to [facility] ED with complaint of mid abdominal pain, nausea and dry heaves with intermittent vomiting over 2 days. Has followed with Dr. Rich gastroenterology as outpatient. Vital signs 90 4H-72-25-126/59-100% RA. Exam is unremarkable. WBC 6.6-Hgb 12.9-HCT 40.7-PLT 175, absolute neuts normal, Ig percent 0.80. NA 139-K3.5-CL 100-CO2 28.0-BUN 20H--CRE 1.22H-GLU 150 1H. Bili 1.60H, AST 41H, ALT 233H, ALP 135H, lipase 594H, lactic acid 1.7 CT ABD/PEL W0: Calcified granulomata lower lungs, ill-defined hypodensity in the liver previously described as hemangioma on MRI 2014 appearing stable. Gallbladder removed, normal spleen, normal pancreas, normal adrenal glands, normal kidneys, normal stomach and intestines, normal abdominal aorta, vena cava and retroperitoneum, possible lesion or debris or hematoma in urinary bladder poorly identified, uterus normal. Thecal sac surgically decompressed at L3-L4 and L4-L5 with laminectomies. Admitted from emergency department. Problem list: 1. Acute pancreatitis with elevated liver enzymes, IV fluids, plan MRCP and consult to gastroenterology 2. Elevated liver enzymes etiology unclear, unchanged from previous 3. Possible bladder mass, follow-up urology outpatient 4. Persistent nausea and vomiting unclear, IV fluid. 5. Cognitive impairment/dementia on Aricept 6. Type 2 diabetes controlled 7. Essential hypertension: Continue meds. Tendonitis, Achilles, right 02/05/201902/13 Knee joint replacement status, right 07/10/2017 07/11/2017 PONV (postoperative nausea and vomiting) 017 03/03/2019 Primary osteoarthritis of right knee 06/12/2017 07/11/2017 Overview: Added automatically from request for surgery [id number] Acute pain of right knee 05/08/2017 Decreased ROM of right knee 05/08/201702/13 Weakness 05/08/2017 03/03/2019 Degeneration of lumbar intervertebral disc 11/0903/03/2019 Uncontrolled type 2 diabetes with neuropathy 10/201508/28/2016 Diabetes mellitus with neuropathy 05/18/2014 03/14/2016 Neurodermatitis, localized 01/02/201303/14 Disturbance of skin sensation 01/02/2013 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/2013 03/14/2016 Lichenification and lichen simplex chronicus 11/28/2016 Eczematous dermatitis 12/09/2011 11/28/2016 Pruritus 12/09/2011 11/28/2016 Xerosis cutis 12/09/2011 03/14/2016 Actinic skin damage 12/09/2011 03/14/2016 Solar lentigo 12/09/2011 03/14/2016 Incontinence of urine 06/20/2011 03/03/2019 Other and unspecified hyperlipidemia 11/29/2009 03/14/2016 Lumbosacral spondylosis without myelopathy 06/2303/14/2016 Thoracic or lumbosacral neuritis or radiculitis, unspecified 01/07/2007 03/14/2016 Unspecified disorder of skin and subcutaneous ti ssue 05/08/2006 03/14/2016 Spinal stenosis, lumbar theresa on, without neurogenic claudication 11/15/2005 03/14/2016 Pain in joint, lower leg 05/15/2005 016 Abdominal migraine, not intractable 01/31/2004 03/14/2016 Diabetic polyneuropathy 01/31/2004 03/14/20 16 documented as of this encounter (statuses as of 04/03/2022) [facility]04-[facility]2022 History of Past illness Narrative* Problem Noted Date Resolved Date Acute left-sided low back pain with left-sided s ciatica 10/31/2021 01/08/2022 Acute pancreatitis 05/03/2021 01/08/2022 Overview: 04/28/2021 presented to [facility] ED with complaint of mid abdominal pain, nausea and dry heaves with intermittent vomiting over 2 days. Has followed with Dr. Rich gastroenterology as outpatient. Vital signs 90 4M-40-70-126/59-100% RA. Exam is unremarkable. WBC 6.6-Hgb 12.9-HCT 40.7-PLT 175, absolute neuts normal, Ig percent 0.80. NA 139-K3.5-CL 100-CO2 28.0-BUN 20H--CRE 1.22H-GLU 150 1H. Bili 1.60H, AST 41H, ALT 233H, ALP 135H, lipase 594H, lactic acid 1.7 CT ABD/PEL W0: Calcified granulomata lower lungs, ill-defined hypodensity in the liver previously described as hemangioma on MRI 2014 appearing stable. Gallbladder removed, normal spleen, normal pancreas, normal adrenal glands, normal kidneys, normal stomach and intestines, normal abdominal aorta, vena cava and retroperitoneum, possible lesion or debris or hematoma in urinary bladder poorly identified, uterus normal. Thecal sac surgically decompressed at L3-L4 and L4-L5 with laminectomies. Admitted from emergency department. Problem list: 1. Acute pancreatitis with elevated liver enzymes, IV fluids, plan MRCP and consult to gastroenterology 2. Elevated liver enzymes etiology unclear, unchanged from previous 3. Possible bladder mass, follow-up urology outpatient 4. Persistent nausea and vomiting unclear, IV fluid. 5. Cognitive impairment/dementia on Aricept 6. Type 2 diabetes controlled 7. Essential hypertension: Continue meds. Tendonitis, Achilles, right 02/05/201902/13 Knee joint replacement status, right 07/10/2017 07/11/2017 PONV (postoperative nausea and vomiting) 017 03/03/2019 Primary osteoarthritis of right knee 06/12/2017 07/11/2017 Overview: Added automatically from request for surgery [id number] Acute pain of right knee 05/08/2017 017 Decreased ROM of right knee 05/08/201702/13 Weakness 05/08/2017 03/03/2019 Degeneration of lumbar intervertebral disc 11/0903/03/2019 Uncontrolled type 2 diabetes with neuropathy 10/201508/28/2016 Diabetes mellitus with neuropathy 05/18/2014 03/14/2016 Neurodermatitis, localized 01/02/201303/14 Disturbance of skin sensation 01/02/2013 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/2013 03/14/2016 Lichenification and lichen simplex chronicus 11/28/2016 Eczematous dermatitis 12/09/2011 11/28/2016 Pruritus 12/09/2011 11/28/2016 Xerosis cutis 12/09/2011 03/14/2016 Actinic skin damage 12/09/2011 03/14/2016 Solar lentigo 12/09/2011 03/14/2016 Incontinence of urine 06/20/2011 03/03/2019 Other and unspecified hyperlipidemia 11/29/2009 03/14/2016 Lumbosacral spondylosis without myelopathy 06/2303/14/2016 Thoracic or lumbosacral neuritis or radiculitis, unspecified 01/07/2007 03/14/2016 Unspecified disorder of skin and subcutaneous ti ssue 05/08/2006 03/14/2016 Spinal stenosis, lumbar theresa on, without neurogenic claudication 11/15/2005 03/14/2016 Pain in joint, lower leg 05/15/2005 016 Abdominal migraine, not intractable 01/31/2004 03/14/2016 Diabetic polyneuropathy 01/31/2004 03/14/20 16 documented as of this encounter (statuses as of 04/05/2022) [facility] History of Past illness Narrative* Problem Noted Date Resolved Date Acute left-sided low back pain with left-sided s ciatica 10/31/2021 01/08/2022 Acute pancreatitis 05/03/2021 01/08/2022 Overview: 04/28/2021 presented to [facility] ED with complaint of mid abdominal pain, nausea and dry heaves with intermittent vomiting over 2 days. Has followed with Dr. Rich gastroenterology as outpatient. Vital signs 90 6J-30-40-126/59-100% RA. Exam is unremarkable. WBC 6.6-Hgb 12.9-HCT 40.7-PLT 175, absolute neuts normal, Ig percent 0.80. NA 139-K3.5-CL 100-CO2 28.0-BUN 20H--CRE 1.22H-GLU 150 1H. Bili 1.60H, AST 41H, ALT 233H, ALP 135H, lipase 594H, lactic acid 1.7 CT ABD/PEL W0: Calcified granulomata lower lungs, ill-defined hypodensity in the liver previously described as hemangioma on MRI 2014 appearing stable. Gallbladder removed, normal spleen, normal pancreas, normal adrenal glands, normal kidneys, normal stomach and intestines, normal abdominal aorta, vena cava and retroperitoneum, possible lesion or debris or hematoma in urinary bladder poorly identified, uterus normal. Thecal sac surgically decompressed at L3-L4 and L4-L5 with laminectomies. Admitted from emergency department. Problem list: 1. Acute pancreatitis with elevated liver enzymes, IV fluids, plan MRCP and consult to gastroenterology 2. Elevated liver enzymes etiology unclear, unchanged from previous 3. Possible bladder mass, follow-up urology outpatient 4. Persistent nausea and vomiting unclear, IV fluid. 5. Cognitive impairment/dementia on Aricept 6. Type 2 diabetes controlled 7. Essential hypertension: Continue meds. Tendonitis, Achilles, right 02/05/201902/13 Knee joint replacement status, right 07/10/2017 07/11/2017 PONV (postoperative nausea and vomiting) 017 03/03/2019 Primary osteoarthritis of right knee 06/12/2017 07/11/2017 Overview: Added automatically from request for surgery [id number] Acute pain of right knee 05/08/2017 017 Decreased ROM of right knee 05/08/201702/13 Weakness 05/08/2017 03/03/2019 Degeneration of lumbar intervertebral disc 11/0903/03/2019 Uncontrolled type 2 diabetes with neuropathy 10/201508/28/2016 Diabetes mellitus with neuropathy 05/18/2014 03/14/2016 Neurodermatitis, localized 01/02/201303/14 Disturbance of skin sensation 01/02/2013 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/2013 03/14/2016 Lichenification and lichen simplex chronicus 11/28/2016 Eczematous dermatitis 12/09/2011 11/28/2016 Pruritus 12/09/2011 11/28/2016 Xerosis cutis 12/09/2011 03/14/2016 Actinic skin damage 12/09/2011 03/14/2016 Solar lentigo 12/09/2011 03/14/2016 Incontinence of urine 06/20/2011 03/03/2019 Other and unspecified hyperlipidemia 11/29/2009 03/14/2016 Lumbosacral spondylosis without myelopathy 06/2303/14/2016 Thoracic or lumbosacral neuritis or radiculitis, unspecified 01/07/2007 03/14/2016 Unspecified disorder of skin and subcutaneous ti ssue 05/08/2006 03/14/2016 Spinal stenosis, lumbar theresa on, without neurogenic claudication 11/15/2005 03/14/2016 Pain in joint, lower leg 05/15/2005 016 Abdominal migraine, not intractable 01/31/2004 03/14/2016 Diabetic polyneuropathy 01/31/2004 03/14/20 16 documented as of this encounter (statuses as of 04/24/2022) [facility] History of Past illness Narrative* Problem Noted Date Resolved Date Acute left-sided low back pain with left-sided s ciatica 10/31/2021 01/08/2022 Acute pancreatitis 05/03/2021 01/08/2022 Overview: 04/28/2021 presented to [facility] ED with complaint of mid abdominal pain, nausea and dry heaves with intermittent vomiting over 2 days. Has followed with Dr. Rich gastroenterology as outpatient. Vital signs 90 4S-43-36-126/59-100% RA. Exam is unremarkable. WBC 6.6-Hgb 12.9-HCT 40.7-PLT 175, absolute neuts normal, Ig percent 0.80. NA 139-K3.5-CL 100-CO2 28.0-BUN 20H--CRE 1.22H-GLU 150 1H. Bili 1.60H, AST 41H, ALT 233H, ALP 135H, lipase 594H, lactic acid 1.7 CT ABD/PEL W0: Calcified granulomata lower lungs, ill-defined hypodensity in the liver previously described as hemangioma on MRI 2014 appearing stable. Gallbladder removed, normal spleen, normal pancreas, normal adrenal glands, normal kidneys, normal stomach and intestines, normal abdominal aorta, vena cava and retroperitoneum, possible lesion or debris or hematoma in urinary bladder poorly identified, uterus normal. Thecal sac surgically decompressed at L3-L4 and L4-L5 with laminectomies. Admitted from emergency department. Problem list: 1. Acute pancreatitis with elevated liver enzymes, IV fluids, plan MRCP and consult to gastroenterology 2. Elevated liver enzymes etiology unclear, unchanged from previous 3. Possible bladder mass, follow-up urology outpatient 4. Persistent nausea and vomiting unclear, IV fluid. 5. Cognitive impairment/dementia on Aricept 6. Type 2 diabetes controlled 7. Essential hypertension: Continue meds. Tendonitis, Achilles, right 02/05/201902/13 Knee joint replacement status, right 07/10/2017 07/11/2017 PONV (postoperative nausea and vomiting) 017 03/03/2019 Primary osteoarthritis of right knee 06/12/2017 07/11/2017 Overview: Added automatically from request for surgery [id number] Acute pain of right knee 05/08/2017 017 Decreased ROM of right knee 05/08/201702/13 Weakness 05/08/2017 03/03/2019 Degeneration of lumbar intervertebral disc 11/0903/03/2019 Uncontrolled type 2 diabetes with neuropathy 10/201508/28/2016 Diabetes mellitus with neuropathy 05/18/2014 03/14/2016 Neurodermatitis, localized 01/02/201303/14 Disturbance of skin sensation 01/02/2013 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/2013 03/14/2016 Lichenification and lichen simplex chronicus 11/28/2016 Eczematous dermatitis 12/09/2011 11/28/2016 Pruritus 12/09/2011 11/28/2016 Xerosis cutis 12/09/2011 03/14/2016 Actinic skin damage 12/09/2011 03/14/2016 Solar lentigo 12/09/2011 03/14/2016 Incontinence of urine 06/20/2011 03/03/2019 Other and unspecified hyperlipidemia 11/29/2009 03/14/2016 Lumbosacral spondylosis without myelopathy 06/2303/14/2016 Thoracic or lumbosacral neuritis or radiculitis, unspecified 01/07/2007 03/14/2016 Unspecified disorder of skin and subcutaneous ti ssue 05/08/2006 03/14/2016 Spinal stenosis, lumbar theersa on, without neurogenic claudication 11/15/2005 03/14/2016 Pain in joint, lower leg 05/15/2005 016 Abdominal migraine, not intractable 01/31/2004 03/14/2016 Diabetic polyneuropathy 01/31/2004 03/14/20 16 documented as of this encounter (statuses as of 05/03/2022) [facility] History of Past illness Narrative* Problem Noted Date Resolved Date Acute left-sided low back pain with left-sided s ciatica 10/31/2021 01/08/2022 Acute pancreatitis 05/03/2021 01/08/2022 Overview: 04/28/2021 presented to [facility] ED with complaint of mid abdominal pain, nausea and dry heaves with intermittent vomiting over 2 days. Has followed with Dr. Rich gastroenterology as outpatient. Vital signs 90 1M-92-15-126/59-100% RA. Exam is unremarkable. WBC 6.6-Hgb 12.9-HCT 40.7-PLT 175, absolute neuts normal, Ig percent 0.80. NA 139-K3.5-CL 100-CO2 28.0-BUN 20H--CRE 1.22H-GLU 150 1H. Bili 1.60H, AST 41H, ALT 233H, ALP 135H, lipase 594H, lactic acid 1.7 CT ABD/PEL W0: Calcified granulomata lower lungs, ill-defined hypodensity in the liver previously described as hemangioma on MRI 2013 appearing stable. Gallbladder removed, normal spleen, normal pancreas, normal adrenal glands, normal kidneys, normal stomach and intestines, normal abdominal aorta, vena cava and retroperitoneum, possible lesion or debris or hematoma in urinary bladder poorly identified, uterus normal. Thecal sac surgically decompressed at L3-L4 and L4-L5 with laminectomies. Admitted from emergency department. Problem list: 1. Acute pancreatitis with elevated liver enzymes, IV fluids, plan MRCP and consult to gastroenterology 2. Elevated liver enzymes etiology unclear, unchanged from previous 3. Possible bladder mass, follow-up urology outpatient 4. Persistent nausea and vomiting unclear, IV fluid. 5. Cognitive impairment/dementia on Aricept 6. Type 2 diabetes controlled 7. Essential hypertension: Continue meds. Tendonitis, Achilles, right 02/05/201902/13 Knee joint replacement status, right 07/10/2017 07/11/2017 PONV (postoperative nausea and vomiting) 017 03/03/2019 Primary osteoarthritis of right knee 06/12/2017 07/11/2017 Overview: Added automatically from request for surgery [id number] Acute pain of right knee 05/08/2017 017 Decreased ROM of right knee 05/08/201702/13 Weakness 05/08/2017 03/03/2019 Degeneration of lumbar intervertebral disc 11/0903/03/2019 Uncontrolled type 2 diabetes with neuropathy 10/201508/28/2016 Diabetes mellitus with neuropathy 05/18/2014 03/14/2016 Neurodermatitis, localized 01/02/201303/14 Disturbance of skin sensation 01/02/2013 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/2013 03/14/2016 Lichenification and lichen simplex chronicus 11/28/2016 Eczematous dermatitis 12/09/2011 11/28/2016 Pruritus 12/09/2011 11/28/2016 Xerosis cutis 12/09/2011 03/14/2016 Actinic skin damage 12/09/2011 03/14/2016 Solar lentigo 12/09/2011 03/14/2016 Incontinence of urine 06/20/2011 03/03/2019 Other and unspecified hyperlipidemia 11/29/2009 03/14/2016 Lumbosacral spondylosis without myelopathy 06/2303/14/2016 Thoracic or lumbosacral neuritis or radiculitis, unspecified 01/07/2007 03/14/2016 Unspecified disorder of skin and subcutaneous ti ssue 05/08/2006 03/14/2016 Spinal stenosis, lumbar theresa on, without neurogenic claudication 11/15/2005 03/14/2016 Pain in joint, lower leg 05/15/2005 016 Abdominal migraine, not intractable 01/31/2004 03/14/2016 Diabetic polyneuropathy 01/31/2004 03/14/20 16 documented as of this encounter (statuses as of 05/24/2022) [facility] History of Past illness Narrative* Problem Noted Date Resolved Date Acute left-sided low back pain with left-sided s ciatica 10/31/2021 01/08/2022 Acute pancreatitis 05/03/2021 01/08/2022 Overview: 04/28/2021 presented to [facility] ED with complaint of mid abdominal pain, nausea and dry heaves with intermittent vomiting over 2 days. Has followed with Dr. Rich gastroenterology as outpatient. Vital signs 90 0P-46-17-126/59-100% RA. Exam is unremarkable. WBC 6.6-Hgb 12.9-HCT 40.7-PLT 175, absolute neuts normal, Ig percent 0.80. NA 139-K3.5-CL 100-CO2 28.0-BUN 20H--CRE 1.22H-GLU 150 1H. Bili 1.60H, AST 41H, ALT 233H, ALP 135H, lipase 594H, lactic acid 1.7 CT ABD/PEL W0: Calcified granulomata lower lungs, ill-defined hypodensity in the liver previously described as hemangioma on MRI 2014 appearing stable. Gallbladder removed, normal spleen, normal pancreas, normal adrenal glands, normal kidneys, normal stomach and intestines, normal abdominal aorta, vena cava and retroperitoneum, possible lesion or debris or hematoma in urinary bladder poorly identified, uterus normal. Thecal sac surgically decompressed at L3-L4 and L4-L5 with laminectomies. Admitted from emergency department. Problem list: 1. Acute pancreatitis with elevated liver enzymes, IV fluids, plan MRCP and consult to gastroenterology 2. Elevated liver enzymes etiology unclear, unchanged from previous 3. Possible bladder mass, follow-up urology outpatient 4. Persistent nausea and vomiting unclear, IV fluid. 5. Cognitive impairment/dementia on Aricept 6. Type 2 diabetes controlled 7. Essential hypertension: Continue meds. Tendonitis, Achilles, right 02/05/201902/13 Knee joint replacement status, right 07/10/2017 07/11/2017 PONV (postoperative nausea and vomiting) 017 03/03/2019 Primary osteoarthritis of right knee 06/12/2017 07/11/2017 Overview: Added automatically from request for surgery [id number] Acute pain of right knee 05/08/2017 017 Decreased ROM of right knee 05/08/201702/13 Weakness 05/08/2017 03/03/2019 Degeneration of lumbar intervertebral disc 11/0903/03/2019 Uncontrolled type 2 diabetes with neuropathy 10/201508/28/2016 Diabetes mellitus with neuropathy 05/18/2014 03/14/2016 Neurodermatitis, localized 01/02/201303/14 Disturbance of skin sensation 01/02/2013 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/2013 03/14/2016 Lichenification and lichen simplex chronicus 11/28/2016 Eczematous dermatitis 12/09/2011 11/28/2016 Pruritus 12/09/2011 11/28/2016 Xerosis cutis 12/09/2011 03/14/2016 Actinic skin damage 12/09/2011 03/14/2016 Solar lentigo 12/09/2011 03/14/2016 Incontinence of urine 06/20/2011 03/03/2019 Other and unspecified hyperlipidemia 11/29/2009 03/14/2016 Lumbosacral spondylosis without myelopathy 06/2303/14/2016 Thoracic or lumbosacral neuritis or radiculitis, unspecified 01/07/2007 03/14/2016 Unspecified disorder of skin and subcutaneous ti ssue 05/08/2006 03/14/2016 Spinal stenosis, lumbar theresa on, without neurogenic claudication 11/15/2005 03/14/2016 Pain in joint, lower leg 05/15/2005 016 Abdominal migraine, not intractable 01/31/2004 03/14/2016 Diabetic polyneuropathy 01/31/2004 03/14/20 16 documented as of this encounter (statuses as of 06/06/2022) [facility]04-19-2022 History of Past illness Narrative* Problem Noted Date Resolved Date Acute left-sided low back pain with left-sided s ciatica 10/31/2021 01/08/2022 Acute pancreatitis 05/03/2021 01/08/2022 Overview: 04/28/2021 presented to [facility] ED with complaint of mid abdominal pain, nausea and dry heaves with intermittent vomiting over 2 days. Has followed with Dr. Rich gastroenterology as outpatient. Vital signs 90 0Q-33-29-126/59-100% RA. Exam is unremarkable. WBC 6.6-Hgb 12.9-HCT 40.7-PLT 175, absolute neuts normal, Ig percent 0.80. NA 139-K3.5-CL 100-CO2 28.0-BUN 20H--CRE 1.22H-GLU 150 1H. Bili 1.60H, AST 41H, ALT 233H, ALP 135H, lipase 594H, lactic acid 1.7 CT ABD/PEL W0: Calcified granulomata lower lungs, ill-defined hypodensity in the liver previously described as hemangioma on MRI 2014 appearing stable. Gallbladder removed, normal spleen, normal pancreas, normal adrenal glands, normal kidneys, normal stomach and intestines, normal abdominal aorta, vena cava and retroperitoneum, possible lesion or debris or hematoma in urinary bladder poorly identified, uterus normal. Thecal sac surgically decompressed at L3-L4 and L4-L5 with laminectomies. Admitted from emergency department. Problem list: 1. Acute pancreatitis with elevated liver enzymes, IV fluids, plan MRCP and consult to gastroenterology 2. Elevated liver enzymes etiology unclear, unchanged from previous 3. Possible bladder mass, follow-up urology outpatient 4. Persistent nausea and vomiting unclear, IV fluid. 5. Cognitive impairment/dementia on Aricept 6. Type 2 diabetes controlled 7. Essential hypertension: Continue meds. Tendonitis, Achilles, right 02/05/201902/13 Knee joint replacement status, right 07/10/2017 07/11/2017 PONV (postoperative nausea and vomiting) 017 03/03/2019 Primary osteoarthritis of right knee 06/12/2017 07/11/2017 Overview: Added automatically from request for surgery [id number] Acute pain of right knee 05/08/2017 017 Decreased ROM of right knee 05/08/201702/13 Weakness 05/08/2017 03/03/2019 Degeneration of lumbar intervertebral disc 11/0903/03/2019 Uncontrolled type 2 diabetes with neuropathy 10/201508/28/2016 Diabetes mellitus with neuropathy 05/18/2014 03/14/2016 Neurodermatitis, localized 01/02/201303/14 Disturbance of skin sensation 01/02/2013 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/2013 03/14/2016 Lichenification and lichen simplex chronicus 11/28/2016 Eczematous dermatitis 12/09/2011 11/28/2016 Pruritus 12/09/2011 11/28/2016 Xerosis cutis 12/09/2011 03/14/2016 Actinic skin damage 12/09/2011 03/14/2016 Solar lentigo 12/09/2011 03/14/2016 Incontinence of urine 06/20/2011 03/03/2019 Other and unspecified hyperlipidemia 11/29/2009 03/14/2016 Lumbosacral spondylosis without myelopathy 06/2303/14/2016 Thoracic or lumbosacral neuritis or radiculitis, unspecified 01/07/2007 03/14/2016 Unspecified disorder of skin and subcutaneous ti ssue 05/08/2006 03/14/2016 Spinal stenosis, lumbar theresa on, without neurogenic claudication 11/15/2005 03/14/2016 Pain in joint, lower leg 05/15/2005 016 Abdominal migraine, not intractable 01/31/2004 03/14/2016 Diabetic polyneuropathy 01/31/2004 03/14/20 16 documented as of this encounter (statuses as of 07/08/2022) [facility]04-19-2022 History of Past illness Narrative* Problem Noted Date Resolved Date Acute left-sided low back pain with left-sided s ciatica 10/31/2021 01/08/2022 Acute pancreatitis 05/03/2021 01/08/2022 Overview: 04/28/2021 presented to [facility] ED with complaint of mid abdominal pain, nausea and dry heaves with intermittent vomiting over 2 days. Has followed with Dr. Rich gastroenterology as outpatient. Vital signs 90 2M-22-28-126/59-100% RA. Exam is unremarkable. WBC 6.6-Hgb 12.9-HCT 40.7-PLT 175, absolute neuts normal, Ig percent 0.80. NA 139-K3.5-CL 100-CO2 28.0-BUN 20H--CRE 1.22H-GLU 150 1H. Bili 1.60H, AST 41H, ALT 233H, ALP 135H, lipase 594H, lactic acid 1.7 CT ABD/PEL W0: Calcified granulomata lower lungs, ill-defined hypodensity in the liver previously described as hemangioma on MRI 2014 appearing stable. Gallbladder removed, normal spleen, normal pancreas, normal adrenal glands, normal kidneys, normal stomach and intestines, normal abdominal aorta, vena cava and retroperitoneum, possible lesion or debris or hematoma in urinary bladder poorly identified, uterus normal. Thecal sac surgically decompressed at L3-L4 and L4-L5 with laminectomies. Admitted from emergency department. Problem list: 1. Acute pancreatitis with elevated liver enzymes, IV fluids, plan MRCP and consult to gastroenterology 2. Elevated liver enzymes etiology unclear, unchanged from previous 3. Possible bladder mass, follow-up urology outpatient 4. Persistent nausea and vomiting unclear, IV fluid. 5. Cognitive impairment/dementia on Aricept 6. Type 2 diabetes controlled 7. Essential hypertension: Continue meds. Tendonitis, Achilles, right 02/05/201902/13 Knee joint replacement status, right 07/10/2017 07/11/2017 PONV (postoperative nausea and vomiting) 017 03/03/2019 Primary osteoarthritis of right knee 06/12/2017 07/11/2017 Overview: Added automatically from request for surgery [id number] Acute pain of right knee 05/08/2017 017 Decreased ROM of right knee 05/08/201702/13 Weakness 05/08/2017 03/03/2019 Degeneration of lumbar intervertebral disc 11/0903/03/2019 Uncontrolled type 2 diabetes with neuropathy 10/201508/28/2016 Diabetes mellitus with neuropathy 05/18/2014 03/14/2016 Neurodermatitis, localized 01/02/201303/14 Disturbance of skin sensation 01/02/2013 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/2013 03/14/2016 Lichenification and lichen simplex chronicus 11/28/2016 Eczematous dermatitis 12/09/2011 11/28/2016 Pruritus 12/09/2011 11/28/2016 Xerosis cutis 12/09/2011 03/14/2016 Actinic skin damage 12/09/2011 03/14/2016 Solar lentigo 12/09/2011 03/14/2016 Incontinence of urine 06/20/2011 03/03/2019 Other and unspecified hyperlipidemia 11/29/2009 03/14/2016 Lumbosacral spondylosis without myelopathy 06/2303/14/2016 Thoracic or lumbosacral neuritis or radiculitis, unspecified 01/07/2007 03/14/2016 Unspecified disorder of skin and subcutaneous ti ssue 05/08/2006 03/14/2016 Spinal stenosis, lumbar theresa on, without neurogenic claudication 11/15/2005 03/14/2016 Pain in joint, lower leg 05/15/2005 016 Abdominal migraine, not intractable 01/31/2004 03/14/2016 Diabetic polyneuropathy 01/31/2004 03/14/20 16 documented as of this encounter (statuses as of 07/18/2022) [facility]04-19-2022 History of Past illness Narrative* Problem Noted Date Resolved Date Acute left-sided low back pain with left-sided s ciatica 10/31/2021 01/08/2022 Acute pancreatitis 05/03/2021 01/08/2022 Overview: 04/28/2021 presented to [facility] ED with complaint of mid abdominal pain, nausea and dry heaves with intermittent vomiting over 2 days. Has followed with Dr. Rich gastroenterology as outpatient. Vital signs 90 7M-84-24-126/59-100% RA. Exam is unremarkable. WBC 6.6-Hgb 12.9-HCT 40.7-PLT 175, absolute neuts normal, Ig percent 0.80. NA 139-K3.5-CL 100-CO2 28.0-BUN 20H--CRE 1.22H-GLU 150 1H. Bili 1.60H, AST 41H, ALT 233H, ALP 135H, lipase 594H, lactic acid 1.7 CT ABD/PEL W0: Calcified granulomata lower lungs, ill-defined hypodensity in the liver previously described as hemangioma on MRI 2014 appearing stable. Gallbladder removed, normal spleen, normal pancreas, normal adrenal glands, normal kidneys, normal stomach and intestines, normal abdominal aorta, vena cava and retroperitoneum, possible lesion or debris or hematoma in urinary bladder poorly identified, uterus normal. Thecal sac surgically decompressed at L3-L4 and L4-L5 with laminectomies. Admitted from emergency department. Problem list: 1. Acute pancreatitis with elevated liver enzymes, IV fluids, plan MRCP and consult to gastroenterology 2. Elevated liver enzymes etiology unclear, unchanged from previous 3. Possible bladder mass, follow-up urology outpatient 4. Persistent nausea and vomiting unclear, IV fluid. 5. Cognitive impairment/dementia on Aricept 6. Type 2 diabetes controlled 7. Essential hypertension: Continue meds. Tendonitis, Achilles, right 02/05/201902/13 Knee joint replacement status, right 07/10/2017 07/11/2017 PONV (postoperative nausea and vomiting) 017 03/03/2019 Primary osteoarthritis of right knee 06/12/2017 07/11/2017 Overview: Added automatically from request for surgery [id number] Acute pain of right knee 05/08/2017 017 Decreased ROM of right knee 05/08/201702/13 Weakness 05/08/2017 03/03/2019 Degeneration of lumbar intervertebral disc 11/0903/03/2019 Uncontrolled type 2 diabetes with neuropathy 10/201508/28/2016 Diabetes mellitus with neuropathy 05/18/2014 03/14/2016 Neurodermatitis, localized 01/02/201303/14 Disturbance of skin sensation 01/02/2013 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/2013 03/14/2016 Lichenification and lichen simplex chronicus 11/28/2016 Eczematous dermatitis 12/09/2011 11/28/2016 Pruritus 12/09/2011 11/28/2016 Xerosis cutis 12/09/2011 03/14/2016 Actinic skin damage 12/09/2011 03/14/2016 Solar lentigo 12/09/2011 03/14/2016 Incontinence of urine 06/20/2011 03/03/2019 Other and unspecified hyperlipidemia 11/29/2009 03/14/2016 Lumbosacral spondylosis without myelopathy 06/2303/14/2016 Thoracic or lumbosacral neuritis or radiculitis, unspecified 01/07/2007 03/14/2016 Unspecified disorder of skin and subcutaneous ti ssue 05/08/2006 03/14/2016 Spinal stenosis, lumbar theresa on, without neurogenic claudication 11/15/2005 03/14/2016 Pain in joint, lower leg 05/15/2005 016 Abdominal migraine, not intractable 01/31/2004 03/14/2016 Diabetic polyneuropathy 01/31/2004 03/14/20 16 documented as of this encounter (statuses as of 07/20/2022) [facility]04-19-2022 History of Past illness Narrative* Problem Noted Date Resolved Date Acute left-sided low back pain with left-sided s ciatica 10/31/2021 01/08/2022 Acute pancreatitis 05/03/2021 01/08/2022 Overview: 04/28/2021 presented to [facility] ED with complaint of mid abdominal pain, nausea and dry heaves with intermittent vomiting over 2 days. Has followed with Dr. Rich gastroenterology as outpatient. Vital signs 90 6Q-48-15-126/59-100% RA. Exam is unremarkable. WBC 6.6-Hgb 12.9-HCT 40.7-PLT 175, absolute neuts normal, Ig percent 0.80. NA 139-K3.5-CL 100-CO2 28.0-BUN 20H--CRE 1.22H-GLU 150 1H. Bili 1.60H, AST 41H, ALT 233H, ALP 135H, lipase 594H, lactic acid 1.7 CT ABD/PEL W0: Calcified granulomata lower lungs, ill-defined hypodensity in the liver previously described as hemangioma on MRI 2014 appearing stable. Gallbladder removed, normal spleen, normal pancreas, normal adrenal glands, normal kidneys, normal stomach and intestines, normal abdominal aorta, vena cava and retroperitoneum, possible lesion or debris or hematoma in urinary bladder poorly identified, uterus normal. Thecal sac surgically decompressed at L3-L4 and L4-L5 with laminectomies. Admitted from emergency department. Problem list: 1. Acute pancreatitis with elevated liver enzymes, IV fluids, plan MRCP and consult to gastroenterology 2. Elevated liver enzymes etiology unclear, unchanged from previous 3. Possible bladder mass, follow-up urology outpatient 4. Persistent nausea and vomiting unclear, IV fluid. 5. Cognitive impairment/dementia on Aricept 6. Type 2 diabetes controlled 7. Essential hypertension: Continue meds. Tendonitis, Achilles, right 02/05/201902/13 Knee joint replacement status, right 07/10/2017 07/11/2017 PONV (postoperative nausea and vomiting) 017 03/03/2019 Primary osteoarthritis of right knee 06/12/2017 07/11/2017 Overview: Added automatically from request for surgery [id number] Acute pain of right knee 05/08/2017 017 Decreased ROM of right knee 05/08/201702/13 Weakness 05/08/2017 03/03/2019 Degeneration of lumbar intervertebral disc 11/0903/03/2019 Uncontrolled type 2 diabetes with neuropathy 10/201508/28/2016 Diabetes mellitus with neuropathy 05/18/2014 03/14/2016 Neurodermatitis, localized 01/02/201303/14 Disturbance of skin sensation 01/02/2013 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/2013 03/14/2016 Lichenification and lichen simplex chronicus 11/28/2016 Eczematous dermatitis 12/09/2011 11/28/2016 Pruritus 12/09/2011 11/28/2016 Xerosis cutis 12/09/2011 03/14/2016 Actinic skin damage 12/09/2011 03/14/2016 Solar lentigo 12/09/2011 03/14/2016 Incontinence of urine 06/20/2011 03/03/2019 Other and unspecified hyperlipidemia 11/29/2009 03/14/2016 Lumbosacral spondylosis without myelopathy 06/2303/14/2016 Thoracic or lumbosacral neuritis or radiculitis, unspecified 01/07/2007 03/14/2016 Unspecified disorder of skin and subcutaneous ti ssue 05/08/2006 03/14/2016 Spinal stenosis, lumbar theresa on, without neurogenic claudication 11/15/2005 03/14/2016 Pain in joint, lower leg 05/15/2005 016 Abdominal migraine, not intractable 01/31/2004 03/14/2016 Diabetic polyneuropathy 01/31/2004 03/14/20 16 documented as of this encounter (statuses as of 07/30/2022) [facility]04-[facility] History of Past illness Narrative* Problem Noted Date Resolved Date Acute left-sided low back pain with left-sided s ciatica 10/31/2021 01/08/2022 Acute pancreatitis 05/03/2021 01/08/2022 Overview: 04/28/2021 presented to [facility] ED with complaint of mid abdominal pain, nausea and dry heaves with intermittent vomiting over 2 days. Has followed with Dr. Rich gastroenterology as outpatient. Vital signs 90 5M-85-53-126/59-100% RA. Exam is unremarkable. WBC 6.6-Hgb 12.9-HCT 40.7-PLT 175, absolute neuts normal, Ig percent 0.80. NA 139-K3.5-CL 100-CO2 28.0-BUN 20H--CRE 1.22H-GLU 150 1H. Bili 1.60H, AST 41H, ALT 233H, ALP 135H, lipase 594H, lactic acid 1.7 CT ABD/PEL W0: Calcified granulomata lower lungs, ill-defined hypodensity in the liver previously described as hemangioma on MRI 2013 appearing stable. Gallbladder removed, normal spleen, normal pancreas, normal adrenal glands, normal kidneys, normal stomach and intestines, normal abdominal aorta, vena cava and retroperitoneum, possible lesion or debris or hematoma in urinary bladder poorly identified, uterus normal. Thecal sac surgically decompressed at L3-L4 and L4-L5 with laminectomies. Admitted from emergency department. Problem list: 1. Acute pancreatitis with elevated liver enzymes, IV fluids, plan MRCP and consult to gastroenterology 2. Elevated liver enzymes etiology unclear, unchanged from previous 3. Possible bladder mass, follow-up urology outpatient 4. Persistent nausea and vomiting unclear, IV fluid. 5. Cognitive impairment/dementia on Aricept 6. Type 2 diabetes controlled 7. Essential hypertension: Continue meds. Tendonitis, Achilles, right 02/05/201902/13 Knee joint replacement status, right 07/10/2017 07/11/2017 PONV (postoperative nausea and vomiting) 017 03/03/2019 Primary osteoarthritis of right knee 06/12/2017 07/11/2017 Overview: Added automatically from request for surgery [id number] Acute pain of right knee 05/08/2017 017 Decreased ROM of right knee 05/08/201702/13 Weakness 05/08/2017 03/03/2019 Degeneration of lumbar intervertebral disc 11/0903/03/2019 Uncontrolled type 2 diabetes with neuropathy 10/201508/28/2016 Diabetes mellitus with neuropathy 05/18/2014 03/14/2016 Neurodermatitis, localized 01/02/201303/14 Disturbance of skin sensation 01/02/2013 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/2013 03/14/2016 Lichenification and lichen simplex chronicus 11/28/2016 Eczematous dermatitis 12/09/2011 11/28/2016 Pruritus 12/09/2011 11/28/2016 Xerosis cutis 12/09/2011 03/14/2016 Actinic skin damage 12/09/2011 03/14/2016 Solar lentigo 12/09/2011 03/14/2016 Incontinence of urine 06/20/2011 03/03/2019 Other and unspecified hyperlipidemia 11/29/2009 03/14/2016 Lumbosacral spondylosis without myelopathy 06/2303/14/2016 Thoracic or lumbosacral neuritis or radiculitis, unspecified 01/07/2007 03/14/2016 Unspecified disorder of skin and subcutaneous ti ssue 05/08/2006 03/14/2016 Spinal stenosis, lumbar theresa on, without neurogenic claudication 11/15/2005 03/14/2016 Pain in joint, lower leg 05/15/2005 016 Abdominal migraine, not intractable 01/31/2004 03/14/2016 Diabetic polyneuropathy 01/31/2004 03/14/20 16 documented as of this encounter (statuses as of 08/20/2022) [facility] History of Past illness Narrative* Problem Noted Date Resolved Date Acute left-sided low back pain with left-sided s ciatica 10/31/2021 01/08/2022 Acute pancreatitis 05/03/2021 01/08/2022 Overview: 04/28/2021 presented to [facility] ED with complaint of mid abdominal pain, nausea and dry heaves with intermittent vomiting over 2 days. Has followed with Dr. Rich gastroenterology as outpatient. Vital signs 90 9E-46-00-126/59-100% RA. Exam is unremarkable. WBC 6.6-Hgb 12.9-HCT 40.7-PLT 175, absolute neuts normal, Ig percent 0.80. NA 139-K3.5-CL 100-CO2 28.0-BUN 20H--CRE 1.22H-GLU 150 1H. Bili 1.60H, AST 41H, ALT 233H, ALP 135H, lipase 594H, lactic acid 1.7 CT ABD/PEL W0: Calcified granulomata lower lungs, ill-defined hypodensity in the liver previously described as hemangioma on MRI 2013 appearing stable. Gallbladder removed, normal spleen, normal pancreas, normal adrenal glands, normal kidneys, normal stomach and intestines, normal abdominal aorta, vena cava and retroperitoneum, possible lesion or debris or hematoma in urinary bladder poorly identified, uterus normal. Thecal sac surgically decompressed at L3-L4 and L4-L5 with laminectomies. Admitted from emergency department. Problem list: 1. Acute pancreatitis with elevated liver enzymes, IV fluids, plan MRCP and consult to gastroenterology 2. Elevated liver enzymes etiology unclear, unchanged from previous 3. Possible bladder mass, follow-up urology outpatient 4. Persistent nausea and vomiting unclear, IV fluid. 5. Cognitive impairment/dementia on Aricept 6. Type 2 diabetes controlled 7. Essential hypertension: Continue meds. Tendonitis, Achilles, right 02/05/201902/13 Knee joint replacement status, right 07/10/2017 07/11/2017 PONV (postoperative nausea and vomiting) 017 03/03/2019 Primary osteoarthritis of right knee 06/12/2017 07/11/2017 Overview: Added automatically from request for surgery [id number] Acute pain of right knee 05/08/2017 017 Decreased ROM of right knee 05/08/201702/13 Weakness 05/08/2017 03/03/2019 Degeneration of lumbar intervertebral disc 11/0903/03/2019 Uncontrolled type 2 diabetes with neuropathy 10/201508/28/2016 Diabetes mellitus with neuropathy 05/18/2014 03/14/2016 Neurodermatitis, localized 01/02/201303/14 Disturbance of skin sensation 01/02/2013 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/2013 03/14/2016 Lichenification and lichen simplex chronicus 11/28/2016 Eczematous dermatitis 12/09/2011 11/28/2016 Pruritus 12/09/2011 11/28/2016 Xerosis cutis 12/09/2011 03/14/2016 Actinic skin damage 12/09/2011 03/14/2016 Solar lentigo 12/09/2011 03/14/2016 Incontinence of urine 06/20/2011 03/03/2019 Other and unspecified hyperlipidemia 11/29/2009 03/14/2016 Lumbosacral spondylosis without myelopathy 06/2303/14/2016 Thoracic or lumbosacral neuritis or radiculitis, unspecified 01/07/2007 03/14/2016 Unspecified disorder of skin and subcutaneous ti ssue 05/08/2006 03/14/2016 Spinal stenosis, lumbar theresa on, without neurogenic claudication 11/15/2005 03/14/2016 Pain in joint, lower leg 05/15/2005 016 Abdominal migraine, not intractable 01/31/2004 03/14/2016 Diabetic polyneuropathy 01/31/2004 03/14/20 16 documented as of this encounter (statuses as of 08/31/2022) [facility] History of Past illness Narrative* Problem Noted Date Resolved Date Acute left-sided low back pain with left-sided s ciatica 10/31/2021 01/08/2022 Acute pancreatitis 05/03/2021 01/08/2022 Overview: 04/28/2021 presented to [facility] ED with complaint of mid abdominal pain, nausea and dry heaves with intermittent vomiting over 2 days. Has followed with Dr. Rich gastroenterology as outpatient. Vital signs 90 0U-12-77-126/59-100% RA. Exam is unremarkable. WBC 6.6-Hgb 12.9-HCT 40.7-PLT 175, absolute neuts normal, Ig percent 0.80. NA 139-K3.5-CL 100-CO2 28.0-BUN 20H--CRE 1.22H-GLU 150 1H. Bili 1.60H, AST 41H, ALT 233H, ALP 135H, lipase 594H, lactic acid 1.7 CT ABD/PEL W0: Calcified granulomata lower lungs, ill-defined hypodensity in the liver previously described as hemangioma on MRI 2014 appearing stable. Gallbladder removed, normal spleen, normal pancreas, normal adrenal glands, normal kidneys, normal stomach and intestines, normal abdominal aorta, vena cava and retroperitoneum, possible lesion or debris or hematoma in urinary bladder poorly identified, uterus normal. Thecal sac surgically decompressed at L3-L4 and L4-L5 with laminectomies. Admitted from emergency department. Problem list: 1. Acute pancreatitis with elevated liver enzymes, IV fluids, plan MRCP and consult to gastroenterology 2. Elevated liver enzymes etiology unclear, unchanged from previous 3. Possible bladder mass, follow-up urology outpatient 4. Persistent nausea and vomiting unclear, IV fluid. 5. Cognitive impairment/dementia on Aricept 6. Type 2 diabetes controlled 7. Essential hypertension: Continue meds. Tendonitis, Achilles, right 02/05/201902/13 Knee joint replacement status, right 07/10/2017 07/11/2017 PONV (postoperative nausea and vomiting) 017 03/03/2019 Primary osteoarthritis of right knee 06/12/2017 07/11/2017 Overview: Added automatically from request for surgery [id number] Acute pain of right knee 05/08/2017 017 Decreased ROM of right knee 05/08/201702/13 Weakness 05/08/2017 03/03/2019 Degeneration of lumbar intervertebral disc 11/0903/03/2019 Uncontrolled type 2 diabetes with neuropathy 10/201508/28/2016 Diabetes mellitus with neuropathy 05/18/2014 03/14/2016 Neurodermatitis, localized 01/02/201303/14 Disturbance of skin sensation 01/02/2013 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/2013 03/14/2016 Lichenification and lichen simplex chronicus 11/28/2016 Eczematous dermatitis 12/09/2011 11/28/2016 Pruritus 12/09/2011 11/28/2016 Xerosis cutis 12/09/2011 03/14/2016 Actinic skin damage 12/09/2011 03/14/2016 Solar lentigo 12/09/2011 03/14/2016 Incontinence of urine 06/20/2011 03/03/2019 Other and unspecified hyperlipidemia 11/29/2009 03/14/2016 Lumbosacral spondylosis without myelopathy 06/2303/14/2016 Thoracic or lumbosacral neuritis or radiculitis, unspecified 01/07/2007 03/14/2016 Unspecified disorder of skin and subcutaneous ti ssue 05/08/2006 03/14/2016 Spinal stenosis, lumbar theresa on, without neurogenic claudication 11/15/2005 03/14/2016 Pain in joint, lower leg 05/15/2005 016 Abdominal migraine, not intractable 01/31/2004 03/14/2016 Diabetic polyneuropathy 01/31/2004 03/14/20 16 documented as of this encounter (statuses as of 09/12/2022) [facility]04-19-2022 History of Past illness Narrative* Problem Noted Date Resolved Date Acute left-sided low back pain with left-sided s ciatica 10/31/2021 01/08/2022 Acute pancreatitis 05/03/2021 01/08/2022 Overview: 04/28/2021 presented to [facility] ED with complaint of mid abdominal pain, nausea and dry heaves with intermittent vomiting over 2 days. Has followed with Dr. Rich gastroenterology as outpatient. Vital signs 90 7H-84-52-126/59-100% RA. Exam is unremarkable. WBC 6.6-Hgb 12.9-HCT 40.7-PLT 175, absolute neuts normal, Ig percent 0.80. NA 139-K3.5-CL 100-CO2 28.0-BUN 20H--CRE 1.22H-GLU 150 1H. Bili 1.60H, AST 41H, ALT 233H, ALP 135H, lipase 594H, lactic acid 1.7 CT ABD/PEL W0: Calcified granulomata lower lungs, ill-defined hypodensity in the liver previously described as hemangioma on MRI 2014 appearing stable. Gallbladder removed, normal spleen, normal pancreas, normal adrenal glands, normal kidneys, normal stomach and intestines, normal abdominal aorta, vena cava and retroperitoneum, possible lesion or debris or hematoma in urinary bladder poorly identified, uterus normal. Thecal sac surgically decompressed at L3-L4 and L4-L5 with laminectomies. Admitted from emergency department. Problem list: 1. Acute pancreatitis with elevated liver enzymes, IV fluids, plan MRCP and consult to gastroenterology 2. Elevated liver enzymes etiology unclear, unchanged from previous 3. Possible bladder mass, follow-up urology outpatient 4. Persistent nausea and vomiting unclear, IV fluid. 5. Cognitive impairment/dementia on Aricept 6. Type 2 diabetes controlled 7. Essential hypertension: Continue meds. Tendonitis, Achilles, right 02/05/201902/13 Knee joint replacement status, right 07/10/2017 07/11/2017 PONV (postoperative nausea and vomiting) 017 03/03/2019 Primary osteoarthritis of right knee 06/12/2017 07/11/2017 Overview: Added automatically from request for surgery [id number] Acute pain of right knee 05/08/2017 017 Decreased ROM of right knee 05/08/201702/13 Weakness 05/08/2017 03/03/2019 Degeneration of lumbar intervertebral disc 11/0903/03/2019 Uncontrolled type 2 diabetes with neuropathy 10/201508/28/2016 Diabetes mellitus with neuropathy 05/18/2014 03/14/2016 Neurodermatitis, localized 01/02/201303/14 Disturbance of skin sensation 01/02/2013 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/2013 03/14/2016 Lichenification and lichen simplex chronicus 11/28/2016 Eczematous dermatitis 12/09/2011 11/28/2016 Pruritus 12/09/2011 11/28/2016 Xerosis cutis 12/09/2011 03/14/2016 Actinic skin damage 12/09/2011 03/14/2016 Solar lentigo 12/09/2011 03/14/2016 Incontinence of urine 06/20/2011 03/03/2019 Other and unspecified hyperlipidemia 11/29/2009 03/14/2016 Lumbosacral spondylosis without myelopathy 06/2303/14/2016 Thoracic or lumbosacral neuritis or radiculitis, unspecified 01/07/2007 03/14/2016 Unspecified disorder of skin and subcutaneous ti ssue 05/08/2006 03/14/2016 Spinal stenosis, lumbar theresa on, without neurogenic claudication 11/15/2005 03/14/2016 Pain in joint, lower leg 05/15/2005 016 Abdominal migraine, not intractable 01/31/2004 03/14/2016 Diabetic polyneuropathy 01/31/2004 03/14/20 16 documented as of this encounter (statuses as of 09/20/2022) [facility]04-19-2022 History of Past illness Narrative* Problem Noted Date Resolved Date Acute left-sided low back pain with left-sided s ciatica 10/31/2021 01/08/2022 Acute pancreatitis 05/03/2021 01/08/2022 Overview: 04/28/2021 presented to [facility] ED with complaint of mid abdominal pain, nausea and dry heaves with intermittent vomiting over 2 days. Has followed with Dr. Rich gastroenterology as outpatient. Vital signs 90 0G-59-57-126/59-100% RA. Exam is unremarkable. WBC 6.6-Hgb 12.9-HCT 40.7-PLT 175, absolute neuts normal, Ig percent 0.80. NA 139-K3.5-CL 100-CO2 28.0-BUN 20H--CRE 1.22H-GLU 150 1H. Bili 1.60H, AST 41H, ALT 233H, ALP 135H, lipase 594H, lactic acid 1.7 CT ABD/PEL W0: Calcified granulomata lower lungs, ill-defined hypodensity in the liver previously described as hemangioma on MRI 2014 appearing stable. Gallbladder removed, normal spleen, normal pancreas, normal adrenal glands, normal kidneys, normal stomach and intestines, normal abdominal aorta, vena cava and retroperitoneum, possible lesion or debris or hematoma in urinary bladder poorly identified, uterus normal. Thecal sac surgically decompressed at L3-L4 and L4-L5 with laminectomies. Admitted from emergency department. Problem list: 1. Acute pancreatitis with elevated liver enzymes, IV fluids, plan MRCP and consult to gastroenterology 2. Elevated liver enzymes etiology unclear, unchanged from previous 3. Possible bladder mass, follow-up urology outpatient 4. Persistent nausea and vomiting unclear, IV fluid. 5. Cognitive impairment/dementia on Aricept 6. Type 2 diabetes controlled 7. Essential hypertension: Continue meds. Tendonitis, Achilles, right 02/05/201902/13 Knee joint replacement status, right 07/10/2017 07/11/2017 PONV (postoperative nausea and vomiting) 017 03/03/2019 Primary osteoarthritis of right knee 06/12/2017 07/11/2017 Overview: Added automatically from request for surgery [id number] Acute pain of right knee 05/08/2017 017 Decreased ROM of right knee 05/08/201702/13 Weakness 05/08/2017 03/03/2019 Degeneration of lumbar intervertebral disc 11/0903/03/2019 Uncontrolled type 2 diabetes with neuropathy 10/201508/28/2016 Diabetes mellitus with neuropathy 05/18/2014 03/14/2016 Neurodermatitis, localized 01/02/201303/14 Disturbance of skin sensation 01/02/2013 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/2013 03/14/2016 Lichenification and lichen simplex chronicus 11/28/2016 Eczematous dermatitis 12/09/2011 11/28/2016 Pruritus 12/09/2011 11/28/2016 Xerosis cutis 12/09/2011 03/14/2016 Actinic skin damage 12/09/2011 03/14/2016 Solar lentigo 12/09/2011 03/14/2016 Incontinence of urine 06/20/2011 03/03/2019 Other and unspecified hyperlipidemia 11/29/2009 03/14/2016 Lumbosacral spondylosis without myelopathy 06/2303/14/2016 Thoracic or lumbosacral neuritis or radiculitis, unspecified 01/07/2007 03/14/2016 Unspecified disorder of skin and subcutaneous ti ssue 05/08/2006 03/14/2016 Spinal stenosis, lumbar theresa on, without neurogenic claudication 11/15/2005 03/14/2016 Pain in joint, lower leg 05/15/2005 016 Abdominal migraine, not intractable 01/31/2004 03/14/2016 Diabetic polyneuropathy 01/31/2004 03/14/20 16 documented as of this encounter (statuses as of 09/21/2022) [facility]04-19-2022 History of Past illness Narrative* Problem Noted Date Resolved Date Acute left-sided low back pain with left-sided s ciatica 10/31/2021 01/08/2022 Acute pancreatitis 05/03/2021 01/08/2022 Overview: 04/28/2021 presented to [facility] ED with complaint of mid abdominal pain, nausea and dry heaves with intermittent vomiting over 2 days. Has followed with Dr. Rich gastroenterology as outpatient. Vital signs 90 3H-68-52-126/59-100% RA. Exam is unremarkable. WBC 6.6-Hgb 12.9-HCT 40.7-PLT 175, absolute neuts normal, Ig percent 0.80. NA 139-K3.5-CL 100-CO2 28.0-BUN 20H--CRE 1.22H-GLU 150 1H. Bili 1.60H, AST 41H, ALT 233H, ALP 135H, lipase 594H, lactic acid 1.7 CT ABD/PEL W0: Calcified granulomata lower lungs, ill-defined hypodensity in the liver previously described as hemangioma on MRI 2014 appearing stable. Gallbladder removed, normal spleen, normal pancreas, normal adrenal glands, normal kidneys, normal stomach and intestines, normal abdominal aorta, vena cava and retroperitoneum, possible lesion or debris or hematoma in urinary bladder poorly identified, uterus normal. Thecal sac surgically decompressed at L3-L4 and L4-L5 with laminectomies. Admitted from emergency department. Problem list: 1. Acute pancreatitis with elevated liver enzymes, IV fluids, plan MRCP and consult to gastroenterology 2. Elevated liver enzymes etiology unclear, unchanged from previous 3. Possible bladder mass, follow-up urology outpatient 4. Persistent nausea and vomiting unclear, IV fluid. 5. Cognitive impairment/dementia on Aricept 6. Type 2 diabetes controlled 7. Essential hypertension: Continue meds. Tendonitis, Achilles, right 02/05/201902/13 Knee joint replacement status, right 07/10/2017 07/11/2017 PONV (postoperative nausea and vomiting) 017 03/03/2019 Primary osteoarthritis of right knee 06/12/2017 07/11/2017 Overview: Added automatically from request for surgery [id number] Acute pain of right knee 05/08/2017 017 Decreased ROM of right knee 05/08/201702/13 Weakness 05/08/2017 03/03/2019 Degeneration of lumbar intervertebral disc 11/0903/03/2019 Uncontrolled type 2 diabetes with neuropathy 10/201508/28/2016 Diabetes mellitus with neuropathy 05/18/2014 03/14/2016 Neurodermatitis, localized 01/02/201303/14 Disturbance of skin sensation 01/02/2013 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/2013 03/14/2016 Lichenification and lichen simplex chronicus 11/28/2016 Eczematous dermatitis 12/09/2011 11/28/2016 Pruritus 12/09/2011 11/28/2016 Xerosis cutis 12/09/2011 03/14/2016 Actinic skin damage 12/09/2011 03/14/2016 Solar lentigo 12/09/2011 03/14/2016 Incontinence of urine 06/20/2011 03/03/2019 Other and unspecified hyperlipidemia 11/29/2009 03/14/2016 Lumbosacral spondylosis without myelopathy 06/2303/14/2016 Thoracic or lumbosacral neuritis or radiculitis, unspecified 01/07/2007 03/14/2016 Unspecified disorder of skin and subcutaneous ti ssue 05/08/2006 03/14/2016 Spinal stenosis, lumbar theresa on, without neurogenic claudication 11/15/2005 03/14/2016 Pain in joint, lower leg 05/15/2005 016 Abdominal migraine, not intractable 01/31/2004 03/14/2016 Diabetic polyneuropathy 01/31/2004 03/14/20 16 documented as of this encounter (statuses as of 10/03/2022) [facility]04-19-2022 History of Past illness Narrative* Problem Noted Date Resolved Date Acute left-sided low back pain with left-sided s ciatica 10/31/2021 01/08/2022 Acute pancreatitis 05/03/2021 01/08/2022 Overview: 04/28/2021 presented to [facility] ED with complaint of mid abdominal pain, nausea and dry heaves with intermittent vomiting over 2 days. Has followed with Dr. Rich gastroenterology as outpatient. Vital signs 90 9X-01-87-126/59-100% RA. Exam is unremarkable. WBC 6.6-Hgb 12.9-HCT 40.7-PLT 175, absolute neuts normal, Ig percent 0.80. NA 139-K3.5-CL 100-CO2 28.0-BUN 20H--CRE 1.22H-GLU 150 1H. Bili 1.60H, AST 41H, ALT 233H, ALP 135H, lipase 594H, lactic acid 1.7 CT ABD/PEL W0: Calcified granulomata lower lungs, ill-defined hypodensity in the liver previously described as hemangioma on MRI 2014 appearing stable. Gallbladder removed, normal spleen, normal pancreas, normal adrenal glands, normal kidneys, normal stomach and intestines, normal abdominal aorta, vena cava and retroperitoneum, possible lesion or debris or hematoma in urinary bladder poorly identified, uterus normal. Thecal sac surgically decompressed at L3-L4 and L4-L5 with laminectomies. Admitted from emergency department. Problem list: 1. Acute pancreatitis with elevated liver enzymes, IV fluids, plan MRCP and consult to gastroenterology 2. Elevated liver enzymes etiology unclear, unchanged from previous 3. Possible bladder mass, follow-up urology outpatient 4. Persistent nausea and vomiting unclear, IV fluid. 5. Cognitive impairment/dementia on Aricept 6. Type 2 diabetes controlled 7. Essential hypertension: Continue meds. Tendonitis, Achilles, right 02/05/201902/13 Knee joint replacement status, right 07/10/2017 07/11/2017 PONV (postoperative nausea and vomiting) 017 03/03/2019 Primary osteoarthritis of right knee 06/12/2017 07/11/2017 Overview: Added automatically from request for surgery [id number] Acute pain of right knee 05/08/2017 017 Decreased ROM of right knee 05/08/201702/13 Weakness 05/08/2017 03/03/2019 Degeneration of lumbar intervertebral disc 11/0903/03/2019 Uncontrolled type 2 diabetes with neuropathy 10/201508/28/2016 Diabetes mellitus with neuropathy 05/18/2014 03/14/2016 Neurodermatitis, localized 01/02/201303/14 Disturbance of skin sensation 01/02/2013 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/2013 03/14/2016 Lichenification and lichen simplex chronicus 11/28/2016 Eczematous dermatitis 12/09/2011 11/28/2016 Pruritus 12/09/2011 11/28/2016 Xerosis cutis 12/09/2011 03/14/2016 Actinic skin damage 12/09/2011 03/14/2016 Solar lentigo 12/09/2011 03/14/2016 Incontinence of urine 06/20/2011 03/03/2019 Other and unspecified hyperlipidemia 11/29/2009 03/14/2016 Lumbosacral spondylosis without myelopathy 06/2303/14/2016 Thoracic or lumbosacral neuritis or radiculitis, unspecified 01/07/2007 03/14/2016 Unspecified disorder of skin and subcutaneous ti ssue 05/08/2006 03/14/2016 Spinal stenosis, lumbar theresa on, without neurogenic claudication 11/15/2005 03/14/2016 Pain in joint, lower leg 05/15/2005 016 Abdominal migraine, not intractable 01/31/2004 03/14/2016 Diabetic polyneuropathy 01/31/2004 03/14/20 16 documented as of this encounter (statuses as of 10/09/2022) [facility]04-[facility] History of Past illness Narrative* Problem Noted Date Resolved Date Acute left-sided low back pain with left-sided s ciatica 10/31/2021 01/08/2022 Acute pancreatitis 05/03/2021 01/08/2022 Overview: 04/28/2021 presented to [facility] ED with complaint of mid abdominal pain, nausea and dry heaves with intermittent vomiting over 2 days. Has followed with Dr. Rich gastroenterology as outpatient. Vital signs 90 7C-90-97-126/59-100% RA. Exam is unremarkable. WBC 6.6-Hgb 12.9-HCT 40.7-PLT 175, absolute neuts normal, Ig percent 0.80. NA 139-K3.5-CL 100-CO2 28.0-BUN 20H--CRE 1.22H-GLU 150 1H. Bili 1.60H, AST 41H, ALT 233H, ALP 135H, lipase 594H, lactic acid 1.7 CT ABD/PEL W0: Calcified granulomata lower lungs, ill-defined hypodensity in the liver previously described as hemangioma on MRI 2014 appearing stable. Gallbladder removed, normal spleen, normal pancreas, normal adrenal glands, normal kidneys, normal stomach and intestines, normal abdominal aorta, vena cava and retroperitoneum, possible lesion or debris or hematoma in urinary bladder poorly identified, uterus normal. Thecal sac surgically decompressed at L3-L4 and L4-L5 with laminectomies. Admitted from emergency department. Problem list: 1. Acute pancreatitis with elevated liver enzymes, IV fluids, plan MRCP and consult to gastroenterology 2. Elevated liver enzymes etiology unclear, unchanged from previous 3. Possible bladder mass, follow-up urology outpatient 4. Persistent nausea and vomiting unclear, IV fluid. 5. Cognitive impairment/dementia on Aricept 6. Type 2 diabetes controlled 7. Essential hypertension: Continue meds. Tendonitis, Achilles, right 02/05/201902/13 Knee joint replacement status, right 07/10/2017 07/11/2017 PONV (postoperative nausea and vomiting) 017 03/03/2019 Primary osteoarthritis of right knee 06/12/2017 07/11/2017 Overview: Added automatically from request for surgery [id number] Acute pain of right knee 05/08/2017 017 Decreased ROM of right knee 05/08/201702/13 Weakness 05/08/2017 03/03/2019 Degeneration of lumbar intervertebral disc 11/0903/03/2019 Uncontrolled type 2 diabetes with neuropathy 10/201508/28/2016 Diabetes mellitus with neuropathy 05/18/2014 03/14/2016 Neurodermatitis, localized 01/02/201303/14 Disturbance of skin sensation 01/02/2013 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/2013 03/14/2016 Lichenification and lichen simplex chronicus 11/28/2016 Eczematous dermatitis 12/09/2011 11/28/2016 Pruritus 12/09/2011 11/28/2016 Xerosis cutis 12/09/2011 03/14/2016 Actinic skin damage 12/09/2011 03/14/2016 Solar lentigo 12/09/2011 03/14/2016 Incontinence of urine 06/20/2011 03/03/2019 Other and unspecified hyperlipidemia 11/29/2009 03/14/2016 Lumbosacral spondylosis without myelopathy 06/2303/14/2016 Thoracic or lumbosacral neuritis or radiculitis, unspecified 01/07/2007 03/14/2016 Unspecified disorder of skin and subcutaneous ti ssue 05/08/2006 03/14/2016 Spinal stenosis, lumbar theresa on, without neurogenic claudication 11/15/2005 03/14/2016 Pain in joint, lower leg 05/15/2005 016 Abdominal migraine, not intractable 01/31/2004 03/14/2016 Diabetic polyneuropathy 01/31/2004 03/14/20 16 documented as of this encounter (statuses as of 10/12/2022) [facility] History of Past illness Narrative* Problem Noted Date Resolved Date Acute left-sided low back pain with left-sided s ciatica 10/31/2021 01/08/2022 Acute pancreatitis 05/03/2021 01/08/2022 Overview: 04/28/2021 presented to [facility] ED with complaint of mid abdominal pain, nausea and dry heaves with intermittent vomiting over 2 days. Has followed with Dr. Rich gastroenterology as outpatient. Vital signs 90 4F-31-04-126/59-100% RA. Exam is unremarkable. WBC 6.6-Hgb 12.9-HCT 40.7-PLT 175, absolute neuts normal, Ig percent 0.80. NA 139-K3.5-CL 100-CO2 28.0-BUN 20H--CRE 1.22H-GLU 150 1H. Bili 1.60H, AST 41H, ALT 233H, ALP 135H, lipase 594H, lactic acid 1.7 CT ABD/PEL W0: Calcified granulomata lower lungs, ill-defined hypodensity in the liver previously described as hemangioma on MRI 2014 appearing stable. Gallbladder removed, normal spleen, normal pancreas, normal adrenal glands, normal kidneys, normal stomach and intestines, normal abdominal aorta, vena cava and retroperitoneum, possible lesion or debris or hematoma in urinary bladder poorly identified, uterus normal. Thecal sac surgically decompressed at L3-L4 and L4-L5 with laminectomies. Admitted from emergency department. Problem list: 1. Acute pancreatitis with elevated liver enzymes, IV fluids, plan MRCP and consult to gastroenterology 2. Elevated liver enzymes etiology unclear, unchanged from previous 3. Possible bladder mass, follow-up urology outpatient 4. Persistent nausea and vomiting unclear, IV fluid. 5. Cognitive impairment/dementia on Aricept 6. Type 2 diabetes controlled 7. Essential hypertension: Continue meds. Tendonitis, Achilles, right 02/05/201902/13 Knee joint replacement status, right 07/10/2017 07/11/2017 PONV (postoperative nausea and vomiting) 017 03/03/2019 Primary osteoarthritis of right knee 06/12/2017 07/11/2017 Overview: Added automatically from request for surgery [id number] Acute pain of right knee 05/08/2017 017 Decreased ROM of right knee 05/08/201702/13 Weakness 05/08/2017 03/03/2019 Degeneration of lumbar intervertebral disc 11/0903/03/2019 Uncontrolled type 2 diabetes with neuropathy 10/201508/28/2016 Diabetes mellitus with neuropathy 05/18/2014 03/14/2016 Neurodermatitis, localized 01/02/201303/14 Disturbance of skin sensation 01/02/2013 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/2013 03/14/2016 Lichenification and lichen simplex chronicus 11/28/2016 Eczematous dermatitis 12/09/2011 11/28/2016 Pruritus 12/09/2011 11/28/2016 Xerosis cutis 12/09/2011 03/14/2016 Actinic skin damage 12/09/2011 03/14/2016 Solar lentigo 12/09/2011 03/14/2016 Incontinence of urine 06/20/2011 03/03/2019 Other and unspecified hyperlipidemia 11/29/2009 03/14/2016 Lumbosacral spondylosis without myelopathy 06/2303/14/2016 Thoracic or lumbosacral neuritis or radiculitis, unspecified 01/07/2007 03/14/2016 Unspecified disorder of skin and subcutaneous ti ssue 05/08/2006 03/14/2016 Spinal stenosis, lumbar theresa on, without neurogenic claudication 11/15/2005 03/14/2016 Pain in joint, lower leg 05/15/2005 016 Abdominal migraine, not intractable 01/31/2004 03/14/2016 Diabetic polyneuropathy 01/31/2004 03/14/20 16 documented as of this encounter (statuses as of 10/18/2022) [facility] History of Past illness Narrative* Problem Noted Date Resolved Date Acute left-sided low back pain with left-sided s ciatica 10/31/2021 01/08/2022 Acute pancreatitis 05/03/2021 01/08/2022 Overview: 04/28/2021 presented to [facility] ED with complaint of mid abdominal pain, nausea and dry heaves with intermittent vomiting over 2 days. Has followed with Dr. Rich gastroenterology as outpatient. Vital signs 90 0S-17-34-126/59-100% RA. Exam is unremarkable. WBC 6.6-Hgb 12.9-HCT 40.7-PLT 175, absolute neuts normal, Ig percent 0.80. NA 139-K3.5-CL 100-CO2 28.0-BUN 20H--CRE 1.22H-GLU 150 1H. Bili 1.60H, AST 41H, ALT 233H, ALP 135H, lipase 594H, lactic acid 1.7 CT ABD/PEL W0: Calcified granulomata lower lungs, ill-defined hypodensity in the liver previously described as hemangioma on MRI 2013 appearing stable. Gallbladder removed, normal spleen, normal pancreas, normal adrenal glands, normal kidneys, normal stomach and intestines, normal abdominal aorta, vena cava and retroperitoneum, possible lesion or debris or hematoma in urinary bladder poorly identified, uterus normal. Thecal sac surgically decompressed at L3-L4 and L4-L5 with laminectomies. Admitted from emergency department. Problem list: 1. Acute pancreatitis with elevated liver enzymes, IV fluids, plan MRCP and consult to gastroenterology 2. Elevated liver enzymes etiology unclear, unchanged from previous 3. Possible bladder mass, follow-up urology outpatient 4. Persistent nausea and vomiting unclear, IV fluid. 5. Cognitive impairment/dementia on Aricept 6. Type 2 diabetes controlled 7. Essential hypertension: Continue meds. Tendonitis, Achilles, right 02/05/201902/13 Knee joint replacement status, right 07/10/2017 07/11/2017 PONV (postoperative nausea and vomiting) 017 03/03/2019 Primary osteoarthritis of right knee 06/12/2017 07/11/2017 Overview: Added automatically from request for surgery [id number] Acute pain of right knee 05/08/2017 Decreased ROM of right knee 05/08/201702/13 Weakness 05/08/2017 03/03/2019 Degeneration of lumbar intervertebral disc 11/0903/03/2019 Uncontrolled type 2 diabetes with neuropathy 10/201508/28/2016 Diabetes mellitus with neuropathy 05/18/2014 03/14/2016 Neurodermatitis, localized 01/02/201303/14 Disturbance of skin sensation 01/02/2013 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/2013 03/14/2016 Lichenification and lichen simplex chronicus 11/28/2016 Eczematous dermatitis 12/09/2011 11/28/2016 Pruritus 12/09/2011 11/28/2016 Xerosis cutis 12/09/2011 03/14/2016 Actinic skin damage 12/09/2011 03/14/2016 Solar lentigo 12/09/2011 03/14/2016 Incontinence of urine 06/20/2011 03/03/2019 Other and unspecified hyperlipidemia 11/29/2009 03/14/2016 Lumbosacral spondylosis without myelopathy 06/2303/14/2016 Thoracic or lumbosacral neuritis or radiculitis, unspecified 01/07/2007 03/14/2016 Unspecified disorder of skin and subcutaneous ti ssue 05/08/2006 03/14/2016 Spinal stenosis, lumbar theresa on, without neurogenic claudication 11/15/2005 03/14/2016 Pain in joint, lower leg 05/15/2005 016 Abdominal migraine, not intractable 01/31/2004 03/14/2016 Diabetic polyneuropathy 01/31/2004 03/14/20 16 documented as of this encounter (statuses as of 12/14/2022) [facility] History of Past illness Narrative* Problem Noted Date Resolved Date Acute left-sided low back pain with left-sided s ciatica 10/31/2021 01/08/2022 Acute pancreatitis 05/03/2021 01/08/2022 Overview: 04/28/2021 presented to [facility] ED with complaint of mid abdominal pain, nausea and dry heaves with intermittent vomiting over 2 days[address] Has followed with Dr. Rich gastroenterology as outpatient. Vital signs 90 9B-96-54-126/59-100% RA. Exam is unremarkable. WBC 6.6-Hgb 12.9-HCT 40.7-PLT 175, absolute neuts normal, Ig percent 0.80. NA 139-K3.5-CL 100-CO2 28.0-BUN 20H--CRE 1.22H-GLU 150 1H. Bili 1.60H, AST 41H, ALT 233H, ALP 135H, lipase 594H, lactic acid 1.7 CT ABD/PEL W0: Calcified granulomata lower lungs, ill-defined hypodensity in the liver previously described as hemangioma on MRI 2014 appearing stable. Gallbladder removed, normal spleen, normal pancreas, normal adrenal glands, normal kidneys, normal stomach and intestines, normal abdominal aorta, vena cava and retroperitoneum, possible lesion or debris or hematoma in urinary bladder poorly identified, uterus normal. Thecal sac surgically decompressed at L3-L4 and L4-L5 with laminectomies. Admitted from emergency department. Problem list: 1. Acute pancreatitis with elevated liver enzymes, IV fluids, plan MRCP and consult to gastroenterology 2. Elevated liver enzymes etiology unclear, unchanged from previous 3. Possible bladder mass, follow-up urology outpatient 4. Persistent nausea and vomiting unclear, IV fluid. 5. Cognitive impairment/dementia on Aricept 6. Type 2 diabetes controlled 7. Essential hypertension: Continue meds. Tendonitis, Achilles, right 02/05/201902/13 Knee joint replacement status, right 07/10/2017 07/11/2017 PONV (postoperative nausea and vomiting) 017 03/03/2019 Primary osteoarthritis of right knee 06/12/2017 07/11/2017 Overview: Added automatically from request for surgery [id number] Acute pain of right knee 05/08/2017 017 Decreased ROM of right knee 05/08/201702/13 Weakness 05/08/2017 03/03/2019 Degeneration of lumbar intervertebral disc 11/0903/03/2019 Uncontrolled type 2 diabetes with neuropathy 10/201508/28/2016 Diabetes mellitus with neuropathy 05/18/2014 03/14/2016 Neurodermatitis, localized 01/02/201303/14 Disturbance of skin sensation 01/02/2013 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/2013 03/14/2016 Lichenification and lichen simplex chronicus 11/28/2016 Eczematous dermatitis 12/09/2011 11/28/2016 Pruritus 12/09/2011 11/28/2016 Xerosis cutis 12/09/2011 03/14/2016 Actinic skin damage 12/09/2011 03/14/2016 Solar lentigo 12/09/2011 03/14/2016 Incontinence of urine 06/20/2011 03/03/2019 Other and unspecified hyperlipidemia 11/29/2009 03/14/2016 Lumbosacral spondylosis without myelopathy 06/2303/14/2016 Thoracic or lumbosacral neuritis or radiculitis, unspecified 01/07/2007 03/14/2016 Unspecified disorder of skin and subcutaneous ti ssue 05/08/2006 03/14/2016 Spinal stenosis, lumbar theresa on, without neurogenic claudication 11/15/2005 03/14/2016 Pain in joint, lower leg 05/15/2005 016 Abdominal migraine, not intractable 01/31/2004 03/14/2016 Diabetic polyneuropathy 01/31/2004 03/14/20 16 documented as of this encounter (statuses as of 12/15/2022) [facility]04-19-2022 History of Past illness Narrative* Problem Noted Date Diagnosed Date Resolved Date Acute left-sided low back pa in with left-sided sciatica 10/31/2021 01/08/2022 Acute pancreatitis 05/03/2021 2 Overview: 04/28/2021 presented to [facility] ED with complaint of mid abdominal pain, nausea and dry heaves with intermittent vomiting over 2 days. Has followed with Dr. Rich gastroenterology as outpatient. Vital signs 90 6C-17-66-126/59-100% RA. Exam is unremarkable. WBC 6.6-Hgb 12.9-HCT 40.7-PLT 175, absolute neuts normal, Ig percent 0.80. NA 139-K3.5-CL 100-CO2 28.0-BUN 20H--CRE 1.22H-GLU 150 1H. Bili 1.60H, AST 41H, ALT 233H, ALP 135H, lipase 594H, lactic acid 1.7 CT ABD/PEL W0: Calcified granulomata lower lungs, ill-defined hypodensity in the liver previously described as hemangioma on MRI 2014 appearing stable. Gallbladder removed, normal spleen, normal pancreas, normal adrenal glands, normal kidneys, normal stomach and intestines, normal abdominal aorta, vena cava and retroperitoneum, possible lesion or debris or hematoma in urinary bladder poorly identified, uterus normal. Thecal sac surgically decompressed at L3-L4 and L4-L5 with laminectomies. Admitted from emergency department. Problem list: 1. Acute pancreatitis with elevated liver enzymes, IV fluids, plan MRCP and consult to gastroenterology 2. Elevated liver enzymes etiology unclear, unchanged from previous 3. Possible bladder mass, follow-up urology outpatient 4. Persistent nausea and vomiting unclear, IV fluid. 5. Cognitive impairment/dementia on Aricept 6. Type 2 diabetes controlled 7. Essential hypertension: Continue meds. Tendonitis, Achilles, right 02/05/2019 03/03/2019 Knee joint replacement status, right 07/10/2017 07/11/2017 PONV (postoperative nausea and vomiting) 06/24/2017 03/03/2019 Primary osteoarthritis of right knee 06/12/2017 07/11/2017 Overview: Added automatically from request for surgery [id number] Acute pain of right knee 05/08/201710/2016 Decreased ROM of right knee 05/08/2017 03/03/2019 Weakness 05/08/2017 03/03/2019 Degeneration of lumbar intervertebral disc 11/10/2015 03/03/2019 Uncontrolled type 2 diabetes with neuropathy 6 08/28/2016 Diabetes mellitus with neuropathy 05/18/2014 03/14/2016 Neurodermatitis, localized 01/02/2013 0 03/14/2016 Disturbance of skin sensation 01/02/2013 03/14/2016 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/20132015 Lichenification and lichen simplex chronicus 2 11/28/2016 Eczematous dermatitis 12/09/20112016 Pruritus 12/09/2011 11/28/2016 Xerosis cutis 12/09/2011 03/14/2016 Actinic skin damage 12/09/2011 03/14/20 16 Solar lentigo 12/09/2011 03/14/2016 Incontinence of urine 06/20/20112018 Other and unspecified hyperlipidemia 11/29/2009 03/14/2016 Lumbosacral spondylosis without myelopathy 06/23/2008 03/14/2016 Thoracic or lumbosacral neur itis or radiculitis, unspecified 01/07/2007 03/14/2016 Unspecified disorder of skin and subcutaneous tissue 05/08/2006 03/14/2016 Spinal stenosis, lumbar theresa on, without neurogenic claudication 11/15/2005 03/14/2016 Pain in joint, lower leg 05/15/2005 Abdominal migraine, not intractable 01/31/2004 03/14/2016 Diabetic polyneuropathy 01/31/200402/14 documented as of this encounter (statuses as of 02/11/2023) [facility]04-19-2022 History of Past illness Narrative* Problem Noted Date Diagnosed Date Resolved Date Acute left-sided low back pa in with left-sided sciatica 10/31/2021 01/08/2022 Acute pancreatitis 05/03/2021 Overview: 04/28/2021 presented to [facility] ED with complaint of mid abdominal pain, nausea and dry heaves with intermittent vomiting over 2 days. Has followed with Dr. Rich gastroenterology as outpatient. Vital signs 90 2U-89-02-126/59-100% RA. Exam is unremarkable. WBC 6.6-Hgb 12.9-HCT 40.7-PLT 175, absolute neuts normal, Ig percent 0.80. NA 139-K3.5-CL 100-CO2 28.0-BUN 20H--CRE 1.22H-GLU 150 1H. Bili 1.60H, AST 41H, ALT 233H, ALP 135H, lipase 594H, lactic acid 1.7 CT ABD/PEL W0: Calcified granulomata lower lungs, ill-defined hypodensity in the liver previously described as hemangioma on MRI 2014 appearing stable. Gallbladder removed, normal spleen, normal pancreas, normal adrenal glands, normal kidneys, normal stomach and intestines, normal abdominal aorta, vena cava and retroperitoneum, possible lesion or debris or hematoma in urinary bladder poorly identified, uterus normal. Thecal sac surgically decompressed at L3-L4 and L4-L5 with laminectomies. Admitted from emergency department. Problem list: 1. Acute pancreatitis with elevated liver enzymes, IV fluids, plan MRCP and consult to gastroenterology 2. Elevated liver enzymes etiology unclear, unchanged from previous 3. Possible bladder mass, follow-up urology outpatient 4. Persistent nausea and vomiting unclear, IV fluid. 5. Cognitive impairment/dementia on Aricept 6. Type 2 diabetes controlled 7. Essential hypertension: Continue meds. Tendonitis, Achilles, right 02/05/2019 03/03/2019 Knee joint replacement status, right 07/10/2017 07/11/2017 PONV (postoperative nausea and vomiting) 06/24/2017 03/03/2019 Primary osteoarthritis of right knee 06/12/2017 07/11/2017 Overview: Added automatically from request for surgery [id number] Acute pain of right knee 05/08/201710/2016 Decreased ROM of right knee 05/08/2017 03/03/2019 Weakness 05/08/2017 03/03/2019 Degeneration of lumbar intervertebral disc 11/10/2015 03/03/2019 Uncontrolled type 2 diabetes with neuropathy 6 08/28/2016 Diabetes mellitus with neuropathy 05/18/2014 03/14/2016 Neurodermatitis, localized 01/02/2013 0 03/14/2016 Disturbance of skin sensation 01/02/2013 03/14/2016 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/20132015 Lichenification and lichen simplex chronicus 2 11/28/2016 Eczematous dermatitis 12/09/20112016 Pruritus 12/09/2011 11/28/2016 Xerosis cutis 12/09/2011 03/14/2016 Actinic skin damage 12/09/2011 03/14/20 16 Solar lentigo 12/09/2011 03/14/2016 Incontinence of urine 06/20/20112018 Other and unspecified hyperlipidemia 11/29/2009 03/14/2016 Lumbosacral spondylosis without myelopathy 06/23/2008 03/14/2016 Thoracic or lumbosacral neur itis or radiculitis, unspecified 01/07/2007 03/14/2016 Unspecified disorder of skin and subcutaneous tissue 05/08/2006 03/14/2016 Spinal stenosis, lumbar theresa on, without neurogenic claudication 11/15/2005 03/14/2016 Pain in joint, lower leg 05/15/2005 Abdominal migraine, not intractable 01/31/2004 03/14/2016 Diabetic polyneuropathy 01/31/200402/14 documented as of this encounter (statuses as of 02/18/2023) [facility]04-19-2022 History of Past illness Narrative* Problem Noted Date Diagnosed Date Resolved Date Acute left-sided low back pa in with left-sided sciatica 10/31/2021 01/08/2022 Acute pancreatitis 05/03/2021 2 Overview: 04/28/2021 presented to [facility] ED with complaint of mid abdominal pain, nausea and dry heaves with intermittent vomiting over 2 days. Has followed with Dr. Rich gastroenterology as outpatient. Vital signs 90 3V-10-78-126/59-100% RA. Exam is unremarkable. WBC 6.6-Hgb 12.9-HCT 40.7-PLT 175, absolute neuts normal, Ig percent 0.80. NA 139-K3.5-CL 100-CO2 28.0-BUN 20H--CRE 1.22H-GLU 150 1H. Bili 1.60H, AST 41H, ALT 233H, ALP 135H, lipase 594H, lactic acid 1.7 CT ABD/PEL W0: Calcified granulomata lower lungs, ill-defined hypodensity in the liver previously described as hemangioma on MRI 2014 appearing stable. Gallbladder removed, normal spleen, normal pancreas, normal adrenal glands, normal kidneys, normal stomach and intestines, normal abdominal aorta, vena cava and retroperitoneum, possible lesion or debris or hematoma in urinary bladder poorly identified, uterus normal. Thecal sac surgically decompressed at L3-L4 and L4-L5 with laminectomies. Admitted from emergency department. Problem list: 1. Acute pancreatitis with elevated liver enzymes, IV fluids, plan MRCP and consult to gastroenterology 2. Elevated liver enzymes etiology unclear, unchanged from previous 3. Possible bladder mass, follow-up urology outpatient 4. Persistent nausea and vomiting unclear, IV fluid. 5. Cognitive impairment/dementia on Aricept 6. Type 2 diabetes controlled 7. Essential hypertension: Continue meds. Tendonitis, Achilles, right 02/05/2019 03/03/2019 Knee joint replacement status, right 07/10/2017 07/11/2017 PONV (postoperative nausea and vomiting) 06/24/2017 03/03/2019 Primary osteoarthritis of right knee 06/12/2017 07/11/2017 Overview: Added automatically from request for surgery [id number] Acute pain of right knee 05/08/201710/2016 Decreased ROM of right knee 05/08/2017 03/03/2019 Weakness 05/08/2017 03/03/2019 Degeneration of lumbar intervertebral disc 11/10/2015 03/03/2019 Uncontrolled type 2 diabetes with neuropathy 6 08/28/2016 Diabetes mellitus with neuropathy 05/18/2014 03/14/2016 Neurodermatitis, localized 01/02/2013 0 03/14/2016 Disturbance of skin sensation 01/02/2013 03/14/2016 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/20132015 Lichenification and lichen simplex chronicus 2 11/28/2016 Eczematous dermatitis 12/09/20112016 Pruritus 12/09/2011 11/28/2016 Xerosis cutis 12/09/2011 03/14/2016 Actinic skin damage 12/09/2011 03/14/20 16 Solar lentigo 12/09/2011 03/14/2016 Incontinence of urine 06/20/20112018 Other and unspecified hyperlipidemia 11/29/2009 03/14/2016 Lumbosacral spondylosis without myelopathy 06/23/2008 03/14/2016 Thoracic or lumbosacral neur itis or radiculitis, unspecified 01/07/2007 03/14/2016 Unspecified disorder of skin and subcutaneous tissue 05/08/2006 03/14/2016 Spinal stenosis, lumbar theresa on, without neurogenic claudication 11/15/2005 03/14/2016 Pain in joint, lower leg 05/15/2005 Abdominal migraine, not intractable 01/31/2004 03/14/2016 Diabetic polyneuropathy 01/31/200402/14 documented as of this encounter (statuses as of 02/20/2023) [facility]04-19-2022 History of Past illness Narrative* Problem Noted Date Diagnosed Date Resolved Date Acute left-sided low back pa in with left-sided sciatica 10/31/2021 01/08/2022 Acute pancreatitis 05/03/2021 Overview: 04/28/2021 presented to [facility] ED with complaint of mid abdominal pain, nausea and dry heaves with intermittent vomiting over 2 days. Has followed with Dr. Rich gastroenterology as outpatient. Vital signs 90 2J-61-38-126/59-100% RA. Exam is unremarkable. WBC 6.6-Hgb 12.9-HCT 40.7-PLT 175, absolute neuts normal, Ig percent 0.80. NA 139-K3.5-CL 100-CO2 28.0-BUN 20H--CRE 1.22H-GLU 150 1H. Bili 1.60H, AST 41H, ALT 233H, ALP 135H, lipase 594H, lactic acid 1.7 CT ABD/PEL W0: Calcified granulomata lower lungs, ill-defined hypodensity in the liver previously described as hemangioma on MRI 2014 appearing stable. Gallbladder removed, normal spleen, normal pancreas, normal adrenal glands, normal kidneys, normal stomach and intestines, normal abdominal aorta, vena cava and retroperitoneum, possible lesion or debris or hematoma in urinary bladder poorly identified, uterus normal. Thecal sac surgically decompressed at L3-L4 and L4-L5 with laminectomies. Admitted from emergency department. Problem list: 1. Acute pancreatitis with elevated liver enzymes, IV fluids, plan MRCP and consult to gastroenterology 2. Elevated liver enzymes etiology unclear, unchanged from previous 3. Possible bladder mass, follow-up urology outpatient 4. Persistent nausea and vomiting unclear, IV fluid. 5. Cognitive impairment/dementia on Aricept 6. Type 2 diabetes controlled 7. Essential hypertension: Continue meds. Tendonitis, Achilles, right 02/05/2019 03/03/2019 Knee joint replacement status, right 07/10/2017 07/11/2017 PONV (postoperative nausea and vomiting) 06/24/2017 03/03/2019 Primary osteoarthritis of right knee 06/12/2017 07/11/2017 Overview: Added automatically from request for surgery [id number] Acute pain of right knee 05/08/201710/2016 Decreased ROM of right knee 05/08/2017 03/03/2019 Weakness 05/08/2017 03/03/2019 Degeneration of lumbar intervertebral disc 11/10/2015 03/03/2019 Uncontrolled type 2 diabetes with neuropathy 6 08/28/2016 Diabetes mellitus with neuropathy 05/18/2014 03/14/2016 Neurodermatitis, localized 01/02/2013 0 03/14/2016 Disturbance of skin sensation 01/02/2013 03/14/2016 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/20132015 Lichenification and lichen simplex chronicus 2 11/28/2016 Eczematous dermatitis 12/09/20112016 Pruritus 12/09/2011 11/28/2016 Xerosis cutis 12/09/2011 03/14/2016 Actinic skin damage 12/09/2011 03/14/20 16 Solar lentigo 12/09/2011 03/14/2016 Incontinence of urine 06/20/20112018 Other and unspecified hyperlipidemia 11/29/2009 03/14/2016 Lumbosacral spondylosis without myelopathy 06/23/2008 03/14/2016 Thoracic or lumbosacral neur itis or radiculitis, unspecified 01/07/2007 03/14/2016 Unspecified disorder of skin and subcutaneous tissue 05/08/2006 03/14/2016 Spinal stenosis, lumbar theresa on, without neurogenic claudication 11/15/2005 03/14/2016 Pain in joint, lower leg 05/15/2005 Abdominal migraine, not intractable 01/31/2004 03/14/2016 Diabetic polyneuropathy 01/31/200402/14 documented as of this encounter (statuses as of 03/07/2023) [facility]04-[facility] History of Past illness Narrative* Problem Noted Date Diagnosed Date Resolved Date Acute left-sided low back pa in with left-sided sciatica 10/31/2021 01/08/2022 Acute pancreatitis 05/03/2021 2 Overview: 04/28/2021 presented to [facility] ED with complaint of mid abdominal pain, nausea and dry heaves with intermittent vomiting over 2 days. Has followed with Dr. Rich gastroenterology as outpatient. Vital signs 90 4F-85-85-126/59-100% RA. Exam is unremarkable. WBC 6.6-Hgb 12.9-HCT 40.7-PLT 175, absolute neuts normal, Ig percent 0.80. NA 139-K3.5-CL 100-CO2 28.0-BUN 20H--CRE 1.22H-GLU 150 1H. Bili 1.60H, AST 41H, ALT 233H, ALP 135H, lipase 594H, lactic acid 1.7 CT ABD/PEL W0: Calcified granulomata lower lungs, ill-defined hypodensity in the liver previously described as hemangioma on MRI 2014 appearing stable. Gallbladder removed, normal spleen, normal pancreas, normal adrenal glands, normal kidneys, normal stomach and intestines, normal abdominal aorta, vena cava and retroperitoneum, possible lesion or debris or hematoma in urinary bladder poorly identified, uterus normal. Thecal sac surgically decompressed at L3-L4 and L4-L5 with laminectomies. Admitted from emergency department. Problem list: 1. Acute pancreatitis with elevated liver enzymes, IV fluids, plan MRCP and consult to gastroenterology 2. Elevated liver enzymes etiology unclear, unchanged from previous 3. Possible bladder mass, follow-up urology outpatient 4. Persistent nausea and vomiting unclear, IV fluid. 5. Cognitive impairment/dementia on Aricept 6. Type 2 diabetes controlled 7. Essential hypertension: Continue meds. Tendonitis, Achilles, right 02/05/2019 03/03/2019 Knee joint replacement status, right 07/10/2017 07/11/2017 PONV (postoperative nausea and vomiting) 06/24/2017 03/03/2019 Primary osteoarthritis of right knee 06/12/2017 07/11/2017 Overview: Added automatically from request for surgery [id number] Acute pain of right knee 05/08/201710/2016 Decreased ROM of right knee 05/08/2017 03/03/2019 Weakness 05/08/2017 03/03/2019 Degeneration of lumbar intervertebral disc 11/10/2015 03/03/2019 Uncontrolled type 2 diabetes with neuropathy 6 08/28/2016 Diabetes mellitus with neuropathy 05/18/2014 03/14/2016 Neurodermatitis, localized 01/02/2013 0 03/14/2016 Disturbance of skin sensation 01/02/2013 03/14/2016 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/20132015 Lichenification and lichen simplex chronicus 2 11/28/2016 Eczematous dermatitis 12/09/20112016 Pruritus 12/09/2011 11/28/2016 Xerosis cutis 12/09/2011 03/14/2016 Actinic skin damage 12/09/2011 03/14/20 16 Solar lentigo 12/09/2011 03/14/2016 Incontinence of urine 06/20/20112018 Other and unspecified hyperlipidemia 11/29/2009 03/14/2016 Lumbosacral spondylosis without myelopathy 06/23/2008 03/14/2016 Thoracic or lumbosacral neur itis or radiculitis, unspecified 01/07/2007 03/14/2016 Unspecified disorder of skin and subcutaneous tissue 05/08/2006 03/14/2016 Spinal stenosis, lumbar theresa on, without neurogenic claudication 11/15/2005 03/14/2016 Pain in joint, lower leg 05/15/2005 Abdominal migraine, not intractable 01/31/2004 03/14/2016 Diabetic polyneuropathy 01/31/200402/14 documented as of this encounter (statuses as of 05/18/2023) [facility] History of Past illness Narrative* Problem Noted Date Diagnosed Date Resolved Date Acute left-sided low back pa in with left-sided sciatica 10/31/2021 01/08/2022 Acute pancreatitis 05/03/2021 2 Overview: 04/28/2021 presented to [facility] ED with complaint of mid abdominal pain, nausea and dry heaves with intermittent vomiting over 2 days. Has followed with Dr. Rich gastroenterology as outpatient. Vital signs 90 7Q-76-24-126/59-100% RA. Exam is unremarkable. WBC 6.6-Hgb 12.9-HCT 40.7-PLT 175, absolute neuts normal, Ig percent 0.80. NA 139-K3.5-CL 100-CO2 28.0-BUN 20H--CRE 1.22H-GLU 150 1H. Bili 1.60H, AST 41H, ALT 233H, ALP 135H, lipase 594H, lactic acid 1.7 CT ABD/PEL W0: Calcified granulomata lower lungs, ill-defined hypodensity in the liver previously described as hemangioma on MRI 2014 appearing stable. Gallbladder removed, normal spleen, normal pancreas, normal adrenal glands, normal kidneys, normal stomach and intestines, normal abdominal aorta, vena cava and retroperitoneum, possible lesion or debris or hematoma in urinary bladder poorly identified, uterus normal. Thecal sac surgically decompressed at L3-L4 and L4-L5 with laminectomies. Admitted from emergency department. Problem list: 1. Acute pancreatitis with elevated liver enzymes, IV fluids, plan MRCP and consult to gastroenterology 2. Elevated liver enzymes etiology unclear, unchanged from previous 3. Possible bladder mass, follow-up urology outpatient 4. Persistent nausea and vomiting unclear, IV fluid. 5. Cognitive impairment/dementia on Aricept 6. Type 2 diabetes controlled 7. Essential hypertension: Continue meds. Tendonitis, Achilles, right 02/05/2019 03/03/2019 Knee joint replacement status, right 07/10/2017 07/11/2017 PONV (postoperative nausea and vomiting) 06/24/2017 03/03/2019 Primary osteoarthritis of right knee 06/12/2017 07/11/2017 Overview: Added automatically from request for surgery [id number] Acute pain of right knee 05/08/201710/2016 Decreased ROM of right knee 05/08/2017 03/03/2019 Weakness 05/08/2017 03/03/2019 Degeneration of lumbar intervertebral disc 11/10/2015 03/03/2019 Uncontrolled type 2 diabetes with neuropathy 6 08/28/2016 Diabetes mellitus with neuropathy 05/18/2014 03/14/2016 Neurodermatitis, localized 01/02/2013 0 03/14/2016 Disturbance of skin sensation 01/02/2013 03/14/2016 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/20132015 Lichenification and lichen simplex chronicus 2 11/28/2016 Eczematous dermatitis 12/09/20112016 Pruritus 12/09/2011 11/28/2016 Xerosis cutis 12/09/2011 03/14/2016 Actinic skin damage 12/09/2011 03/14/20 16 Solar lentigo 12/09/2011 03/14/2016 Incontinence of urine 06/20/20112018 Other and unspecified hyperlipidemia 11/29/2009 03/14/2016 Lumbosacral spondylosis without myelopathy 06/23/2008 03/14/2016 Thoracic or lumbosacral neur itis or radiculitis, unspecified 01/07/2007 03/14/2016 Unspecified disorder of skin and subcutaneous tissue 05/08/2006 03/14/2016 Spinal stenosis, lumbar theresa on, without neurogenic claudication 11/15/2005 03/14/2016 Pain in joint, lower leg 05/15/2005 Abdominal migraine, not intractable 01/31/2004 03/14/2016 Diabetic polyneuropathy 01/31/200402/14 documented as of this encounter (statuses as of 05/23/2023) [facility] History of Past illness Narrative* Problem Noted Date Diagnosed Date Resolved Date Acute left-sided low back pa in with left-sided sciatica 10/31/2021 01/08/2022 Acute pancreatitis 05/03/2021 Overview: 04/28/2021 presented to [facility] ED with complaint of mid abdominal pain, nausea and dry heaves with intermittent vomiting over 2 days. Has followed with Dr. Rich gastroenterology as outpatient. Vital signs 90 0Z-48-61-126/59-100% RA. Exam is unremarkable. WBC 6.6-Hgb 12.9-HCT 40.7-PLT 175, absolute neuts normal, Ig percent 0.80. NA 139-K3.5-CL 100-CO2 28.0-BUN 20H--CRE 1.22H-GLU 150 1H. Bili 1.60H, AST 41H, ALT 233H, ALP 135H, lipase 594H, lactic acid 1.7 CT ABD/PEL W0: Calcified granulomata lower lungs, ill-defined hypodensity in the liver previously described as hemangioma on MRI 2014 appearing stable. Gallbladder removed, normal spleen, normal pancreas, normal adrenal glands, normal kidneys, normal stomach and intestines, normal abdominal aorta, vena cava and retroperitoneum, possible lesion or debris or hematoma in urinary bladder poorly identified, uterus normal. Thecal sac surgically decompressed at L3-L4 and L4-L5 with laminectomies. Admitted from emergency department. Problem list: 1. Acute pancreatitis with elevated liver enzymes, IV fluids, plan MRCP and consult to gastroenterology 2. Elevated liver enzymes etiology unclear, unchanged from previous 3. Possible bladder mass, follow-up urology outpatient 4. Persistent nausea and vomiting unclear, IV fluid. 5. Cognitive impairment/dementia on Aricept 6. Type 2 diabetes controlled 7. Essential hypertension: Continue meds. Tendonitis, Achilles, right 02/05/2019 03/03/2019 Knee joint replacement status, right 07/10/2017 07/11/2017 PONV (postoperative nausea and vomiting) 06/24/2017 03/03/2019 Primary osteoarthritis of right knee 06/12/2017 07/11/2017 Overview: Added automatically from request for surgery [id number] Acute pain of right knee 05/08/201710/2016 Decreased ROM of right knee 05/08/2017 03/03/2019 Weakness 05/08/2017 03/03/2019 Degeneration of lumbar intervertebral disc 11/10/2015 03/03/2019 Uncontrolled type 2 diabetes with neuropathy 6 08/28/2016 Diabetes mellitus with neuropathy 05/18/2014 03/14/2016 Neurodermatitis, localized 01/02/2013 0 03/14/2016 Disturbance of skin sensation 01/02/2013 03/14/2016 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/20132015 Lichenification and lichen simplex chronicus 2 11/28/2016 Eczematous dermatitis 12/09/20112016 Pruritus 12/09/2011 11/28/2016 Xerosis cutis 12/09/2011 03/14/2016 Actinic skin damage 12/09/2011 03/14/20 16 Solar lentigo 12/09/2011 03/14/2016 Incontinence of urine 06/20/20112018 Other and unspecified hyperlipidemia 11/29/2009 03/14/2016 Lumbosacral spondylosis without myelopathy 06/23/2008 03/14/2016 Thoracic or lumbosacral neur itis or radiculitis, unspecified 01/07/2007 03/14/2016 Unspecified disorder of skin and subcutaneous tissue 05/08/2006 03/14/2016 Spinal stenosis, lumbar theresa on, without neurogenic claudication 11/15/2005 03/14/2016 Pain in joint, lower leg 05/15/2005 Abdominal migraine, not intractable 01/31/2004 03/14/2016 Diabetic polyneuropathy 01/31/200402/14 documented as of this encounter (statuses as of 05/23/2023) [facility]22 History of Past illness Narrative* Problem Noted Date Diagnosed Date Resolved Date Acute left-sided low back pa in with left-sided sciatica 10/31/2021 01/08/2022 Acute pancreatitis 05/03/2021 2 Overview: 04/28/2021 presented to [facility] ED with complaint of mid abdominal pain, nausea and dry heaves with intermittent vomiting over 2 days[address] Has followed with Dr. Rich gastroenterology as outpatient. Vital signs 90 9O-38-96-126/59-100% RA. Exam is unremarkable. WBC 6.6-Hgb 12.9-HCT 40.7-PLT 175, absolute neuts normal, Ig percent 0.80. NA 139-K3.5-CL 100-CO2 28.0-BUN 20H--CRE 1.22H-GLU 150 1H. Bili 1.60H, AST 41H, ALT 233H, ALP 135H, lipase 594H, lactic acid 1.7 CT ABD/PEL W0: Calcified granulomata lower lungs, ill-defined hypodensity in the liver previously described as hemangioma on MRI 2013 appearing stable. Gallbladder removed, normal spleen, normal pancreas, normal adrenal glands, normal kidneys, normal stomach and intestines, normal abdominal aorta, vena cava and retroperitoneum, possible lesion or debris or hematoma in urinary bladder poorly identified, uterus normal. Thecal sac surgically decompressed at L3-L4 and L4-L5 with laminectomies. Admitted from emergency department. Problem list: 1. Acute pancreatitis with elevated liver enzymes, IV fluids, plan MRCP and consult to gastroenterology 2. Elevated liver enzymes etiology unclear, unchanged from previous 3. Possible bladder mass, follow-up urology outpatient 4. Persistent nausea and vomiting unclear, IV fluid. 5. Cognitive impairment/dementia on Aricept 6. Type 2 diabetes controlled 7. Essential hypertension: Continue meds. Tendonitis, Achilles, right 02/05/2019 03/03/2019 Knee joint replacement status, right 07/10/2017 07/11/2017 PONV (postoperative nausea and vomiting) 06/24/2017 03/03/2019 Primary osteoarthritis of right knee 06/12/2017 07/11/2017 Overview: Added automatically from request for surgery [id number] Acute pain of right knee 05/08/201710/2016 Decreased ROM of right knee 05/08/2017 03/03/2019 Weakness 05/08/2017 03/03/2019 Degeneration of lumbar intervertebral disc 11/10/2015 03/03/2019 Uncontrolled type 2 diabetes with neuropathy 6 08/28/2016 Diabetes mellitus with neuropathy 05/18/2014 03/14/2016 Neurodermatitis, localized 01/02/2013 0 03/14/2016 Disturbance of skin sensation 01/02/2013 03/14/2016 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/20132015 Lichenification and lichen simplex chronicus 2 11/28/2016 Eczematous dermatitis 12/09/20112016 Pruritus 12/09/2011 11/28/2016 Xerosis cutis 12/09/2011 03/14/2016 Actinic skin damage 12/09/2011 03/14/20 16 Solar lentigo 12/09/2011 03/14/2016 Incontinence of urine 06/20/20112018 Other and unspecified hyperlipidemia 11/29/2009 03/14/2016 Lumbosacral spondylosis without myelopathy 06/23/2008 03/14/2016 Thoracic or lumbosacral neur itis or radiculitis, unspecified 01/07/2007 03/14/2016 Unspecified disorder of skin and subcutaneous tissue 05/08/2006 03/14/2016 Spinal stenosis, lumbar theresa on, without neurogenic claudication 11/15/2005 03/14/2016 Pain in joint, lower leg 05/15/2005 Abdominal migraine, not intractable 01/31/2004 03/14/2016 Diabetic polyneuropathy 01/31/200402/14 documented as of this encounter (statuses as of 06/05/2023) [facility]04-[facility] History of Past illness Narrative* Problem Noted Date Diagnosed Date Resolved Date Acute left-sided low back pa in with left-sided sciatica 10/31/2021 01/08/2022 Acute pancreatitis 05/03/2021 Overview: 04/28/2021 presented to [facility] ED with complaint of mid abdominal pain, nausea and dry heaves with intermittent vomiting over 2 days. Has followed with Dr. Rich gastroenterology as outpatient. Vital signs 90 4I-10-68-126/59-100% RA. Exam is unremarkable. WBC 6.6-Hgb 12.9-HCT 40.7-PLT 175, absolute neuts normal, Ig percent 0.80. NA 139-K3.5-CL 100-CO2 28.0-BUN 20H--CRE 1.22H-GLU 150 1H. Bili 1.60H, AST 41H, ALT 233H, ALP 135H, lipase 594H, lactic acid 1.7 CT ABD/PEL W0: Calcified granulomata lower lungs, ill-defined hypodensity in the liver previously described as hemangioma on MRI 2013 appearing stable. Gallbladder removed, normal spleen, normal pancreas, normal adrenal glands, normal kidneys, normal stomach and intestines, normal abdominal aorta, vena cava and retroperitoneum, possible lesion or debris or hematoma in urinary bladder poorly identified, uterus normal. Thecal sac surgically decompressed at L3-L4 and L4-L5 with laminectomies. Admitted from emergency department. Problem list: 1. Acute pancreatitis with elevated liver enzymes, IV fluids, plan MRCP and consult to gastroenterology 2. Elevated liver enzymes etiology unclear, unchanged from previous 3. Possible bladder mass, follow-up urology outpatient 4. Persistent nausea and vomiting unclear, IV fluid. 5. Cognitive impairment/dementia on Aricept 6. Type 2 diabetes controlled 7. Essential hypertension: Continue meds. Tendonitis, Achilles, right 02/05/2019 03/03/2019 Knee joint replacement status, right 07/10/2017 07/11/2017 PONV (postoperative nausea and vomiting) 06/24/2017 03/03/2019 Primary osteoarthritis of right knee 06/12/2017 07/11/2017 Overview: Added automatically from request for surgery [id number] Acute pain of right knee 05/08/201710/2016 Decreased ROM of right knee 05/08/2017 03/03/2019 Weakness 05/08/2017 03/03/2019 Degeneration of lumbar intervertebral disc 11/10/2015 03/03/2019 Uncontrolled type 2 diabetes with neuropathy 6 08/28/2016 Diabetes mellitus with neuropathy 05/18/2014 03/14/2016 Neurodermatitis, localized 01/02/2013 0 03/14/2016 Disturbance of skin sensation 01/02/2013 03/14/2016 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/20132015 Lichenification and lichen simplex chronicus 2 11/28/2016 Eczematous dermatitis 12/09/20112016 Pruritus 12/09/2011 11/28/2016 Xerosis cutis 12/09/2011 03/14/2016 Actinic skin damage 12/09/2011 03/14/20 16 Solar lentigo 12/09/2011 03/14/2016 Incontinence of urine 06/20/20112018 Other and unspecified hyperlipidemia 11/29/2009 03/14/2016 Lumbosacral spondylosis without myelopathy 06/23/2008 03/14/2016 Thoracic or lumbosacral neur itis or radiculitis, unspecified 01/07/2007 03/14/2016 Unspecified disorder of skin and subcutaneous tissue 05/08/2006 03/14/2016 Spinal stenosis, lumbar theresa on, without neurogenic claudication 11/15/2005 03/14/2016 Pain in joint, lower leg 05/15/2005 Abdominal migraine, not intractable 01/31/2004 03/14/2016 Diabetic polyneuropathy 01/31/200402/14 documented as of this encounter (statuses as of 06/14/2023) [facility]04-19-[facility] History of Past illness Narrative* Problem Noted Date Diagnosed Date Resolved Date Acute left-sided low back pa in with left-sided sciatica 10/31/2021 01/08/2022 Acute pancreatitis 05/03/2021 2 Overview: 04/28/2021 presented to [facility] ED with complaint of mid abdominal pain, nausea and dry heaves with intermittent vomiting over 2 days. Has followed with Dr. Rich gastroenterology as outpatient. Vital signs 90 4W-11-65-126/59-100% RA. Exam is unremarkable. WBC 6.6-Hgb 12.9-HCT 40.7-PLT 175, absolute neuts normal, Ig percent 0.80. NA 139-K3.5-CL 100-CO2 28.0-BUN 20H--CRE 1.22H-GLU 150 1H. Bili 1.60H, AST 41H, ALT 233H, ALP 135H, lipase 594H, lactic acid 1.7 CT ABD/PEL W0: Calcified granulomata lower lungs, ill-defined hypodensity in the liver previously described as hemangioma on MRI 2014 appearing stable. Gallbladder removed, normal spleen, normal pancreas, normal adrenal glands, normal kidneys, normal stomach and intestines, normal abdominal aorta, vena cava and retroperitoneum, possible lesion or debris or hematoma in urinary bladder poorly identified, uterus normal. Thecal sac surgically decompressed at L3-L4 and L4-L5 with laminectomies. Admitted from emergency department. Problem list: 1. Acute pancreatitis with elevated liver enzymes, IV fluids, plan MRCP and consult to gastroenterology 2. Elevated liver enzymes etiology unclear, unchanged from previous 3. Possible bladder mass, follow-up urology outpatient 4. Persistent nausea and vomiting unclear, IV fluid. 5. Cognitive impairment/dementia on Aricept 6. Type 2 diabetes controlled 7. Essential hypertension: Continue meds. Tendonitis, Achilles, right 02/05/2019 03/03/2019 Knee joint replacement status, right 07/10/2017 07/11/2017 PONV (postoperative nausea and vomiting) 06/24/2017 03/03/2019 Primary osteoarthritis of right knee 06/12/2017 07/11/2017 Overview: Added automatically from request for surgery [id number] Acute pain of right knee 05/08/201710/2016 Decreased ROM of right knee 05/08/2017 03/03/2019 Weakness 05/08/2017 03/03/2019 Degeneration of lumbar intervertebral disc 11/10/2015 03/03/2019 Uncontrolled type 2 diabetes with neuropathy 6 08/28/2016 Diabetes mellitus with neuropathy 05/18/2014 03/14/2016 Neurodermatitis, localized 01/02/2013 0 03/14/2016 Disturbance of skin sensation 01/02/2013 03/14/2016 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/20132015 Lichenification and lichen simplex chronicus 2 11/28/2016 Eczematous dermatitis 12/09/20112016 Pruritus 12/09/2011 11/28/2016 Xerosis cutis 12/09/2011 03/14/2016 Actinic skin damage 12/09/2011 03/14/20 16 Solar lentigo 12/09/2011 03/14/2016 Incontinence of urine 06/20/20112018 Other and unspecified hyperlipidemia 11/29/2009 03/14/2016 Lumbosacral spondylosis without myelopathy 06/23/2008 03/14/2016 Thoracic or lumbosacral neur itis or radiculitis, unspecified 01/07/2007 03/14/2016 Unspecified disorder of skin and subcutaneous tissue 05/08/2006 03/14/2016 Spinal stenosis, lumbar theresa on, without neurogenic claudication 11/15/2005 03/14/2016 Pain in joint, lower leg 05/15/2005 Abdominal migraine, not intractable 01/31/2004 03/14/2016 Diabetic polyneuropathy 01/31/200402/14 documented as of this encounter (statuses as of 06/26/2023) [facility]04-18-2022 Miscellaneous Notes* Telephone Encounter - Dasia Cullen Ma - 10/30/2021 9:58 AM EDT Please assist patient with scheduling. * Telephone Encounter - Jeana Mendoza APRN.CNP - 10/30/2021 9:55 AM EDT Referral placed. Jeana Mendoza APRN.CNP * Telephone Encounter - Amara Moreira Ma - 10/30/2021 9:38 AM EDT Spoke with patient and advised of provider message. She says that it is difficult to get transportation to [place] to see Spine. Asking if she can try physical therapy first. If so, please place order and transfer to planner/scheduler. * Telephone Encounter - Jeana Mendoza APRN.CNP - 10/27/2021 5:44 PM EDT I think that we need to get her back into spine. I can see that she is seeing pain management, but I don't see where she has returned to spine since 01/27/2021. * Telephone Encounter - Yenny Ferrer RN - 10/27/2021 4:54 PM EDT Pt called in and reports provider had ordered PT for her for her sciatica and she had let it . She was going to a specialist up in [place] and reports he hasn't helped her one bit. Pt states shejust had a nerve shot in her spine and hip and they helped for a couple days and now the pain is worse than ever. Pt reports she will do PT or whatever else you want her to do, but she needs help with this pain. She states it comes and goes, but when it's at it's worst it's a 9/10, and she cannot even move her left leg. She has to just wait until her leg sorts itself out. The pain goes from her back to left hip, leg, down to the ankle. She states she will sit on a heating pad and that sometimeshelps. The pain will get so bad that it wakes her up at night. Please call and advise. [facility] Miscellaneous Notes* Telephone Encounter - Lucrecia Henry - 10/20/2021 12:28 PM EDT Patient has been identified by name and date of : Yes Pending Prescriptions Disp Refills FLUOXETINE 40 MG CAPSULE 90 capsule 1 Sig: Take 1 capsule by mouth once daily. TRIP: No RX INSTRUCTIONS: Patient aware RX will be sent to pharmacy. No need to notify patient. Lucrecia Henry documented in this encounterAs[facility] Miscellaneous Notes* Telephone Encounter - ANJELICA Oliva - 10/12/2021 3:48 PM EDT Sw spoke with patient in regards to below [employer] PAP information. Sw provided patient with below [facility] number for her to call when down to 14 days of medication. Patient thanked David for assistance. * Telephone Encounter - Kathie Julian MD - 10/12/2021 1:09 PM EDT Noted. Thank you * Telephone Encounter - ANJELICA Oliva - 10/12/2021 12:02 PM EDT David spoke with [employer] and patient has been approved for assistance with Januvia September-September. When patient needs refill on medication she is to call [facility] ph. [phone] 14 days before she is out of [facility]. [employer] dain notes that yes, they do use [facility] and they do not send approval letter. Medication is sent to patient home if they are approved and this is how they know that they have been approved. Sw will give patient pharmacy number up above and let her know about 14 days to call and request refill. * Telephone Encounter - ANJELICA Oliva - 10/12/2021 10:54 AM EDT Sw spoke with patient and she reports receiving 2 bottles of Januvia from a [facility]. Patient had applied to [employer] to see about assistance with Januvia.Patient reports that she has not received any letter from company stating that she was approved for assistance. Sw noted that she wouldcall and speak with [employer] and see what they say about patient assistance for patient. Patient wouldlike to know for how long she is approved. * Telephone Encounter - ANJELICA Oliva - 10/11/2021 12:15 PM EDT Patient called David back to let Sw know that she received 2 bottles of Januvia. Patient reports that the package says from [facility]. Sw called patient to talk with her to see if she has received a letter from [employer] in regards to the Januvia. Patient had applied to [employer] and had sent in her attestation form to [employer]. No answer and call was sent to patient vmail. Sw left patient message that she willcall patient later to discuss. Sw is not sure if [facility] is the pharmacy that [employer] uses. Patient noted that there was not chargeto her for the Januvia. documented in this encounterAs[facility]07[facility] History of Past illness Narrative* Problem Noted Date Resolved Date Tendonitis, Achilles, right 02/05/201902/13 Knee joint replacement status, right 07/10/2017 07/11/2017 PONV (postoperative nausea and vomiting) 017 03/03/2019 Primary osteoarthritis of right knee 06/12/2017 07/11/2017 Overview: Added automatically from request for surgery [id number] Acute pain of right knee 05/08/2017 017 Decreased ROM of right knee 05/08/201702/13 Weakness 05/08/2017 03/03/2019 Degeneration of lumbar intervertebral disc 11/0903/03/2019 Uncontrolled type 2 diabetes with neuropathy 10/201508/28/2016 Diabetes mellitus with neuropathy 05/18/2014 03/14/2016 Neurodermatitis, localized 01/02/201303/14 Disturbance of skin sensation 01/02/2013 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/2013 03/14/2016 Lichenification and lichen simplex chronicus 11/28/2016 Eczematous dermatitis 12/09/2011 11/28/2016 Pruritus 12/09/2011 11/28/2016 Xerosis cutis 12/09/2011 03/14/2016 Actinic skin damage 12/09/2011 03/14/2016 Solar lentigo 12/09/2011 03/14/2016 Incontinence of urine 06/20/2011 03/03/2019 Other and unspecified hyperlipidemia 11/29/2009 03/14/2016 Lumbosacral spondylosis without myelopathy 06/2303/14/2016 Thoracic or lumbosacral neuritis or radiculitis, unspecified 01/07/2007 03/14/2016 Unspecified disorder of skin and subcutaneous ti ssue 05/08/2006 03/14/2016 Spinal stenosis, lumbar theresa on, without neurogenic claudication 11/15/2005 03/14/2016 Pain in joint, lower leg 05/15/2005 016 Abdominal migraine, not intractable 01/31/2004 03/14/2016 Diabetic polyneuropathy 01/31/2004 03/14/20 16 documented as of this encounter (statuses as of 10/12/2021) [facility] of Past illness Narrative* Problem Noted Date Resolved Date Tendonitis, Achilles, right 02/05/201902/13 Knee joint replacement status, right 07/10/2017 07/11/2017 PONV (postoperative nausea and vomiting) 017 03/03/2019 Primary osteoarthritis of right knee 06/12/2017 07/11/2017 Overview: Added automatically from request for surgery [id number] Acute pain of right knee 05/08/2017 017 Decreased ROM of right knee 05/08/201702/13 Weakness 05/08/2017 03/03/2019 Degeneration of lumbar intervertebral disc 11/0903/03/2019 Uncontrolled type 2 diabetes with neuropathy 10/201508/28/2016 Diabetes mellitus with neuropathy 05/18/2014 03/14/2016 Neurodermatitis, localized 01/02/201303/14 Disturbance of skin sensation 01/02/2013 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/2013 03/14/2016 Lichenification and lichen simplex chronicus 11/28/2016 Eczematous dermatitis 12/09/2011 11/28/2016 Pruritus 12/09/2011 11/28/2016 Xerosis cutis 12/09/2011 03/14/2016 Actinic skin damage 12/09/2011 03/14/2016 Solar lentigo 12/09/2011 03/14/2016 Incontinence of urine 06/20/2011 03/03/2019 Other and unspecified hyperlipidemia 11/29/2009 03/14/2016 Lumbosacral spondylosis without myelopathy 06/2303/14/2016 Thoracic or lumbosacral neuritis or radiculitis, unspecified 01/07/2007 03/14/2016 Unspecified disorder of skin and subcutaneous ti ssue 05/08/2006 03/14/2016 Spinal stenosis, lumbar theresa on, without neurogenic claudication 11/15/2005 03/14/2016 Pain in joint, lower leg 05/15/2005 016 Abdominal migraine, not intractable 01/31/2004 03/14/2016 Diabetic polyneuropathy 01/31/2004 03/14/20 16 documented as of this encounter (statuses as of 10/20/2021) [facility] of [facility] Narrative* Problem Noted Date Resolved Date Tendonitis, Achilles, right 02/05/201902/13 Knee joint replacement status, right 07/10/2017 07/11/2017 PONV (postoperative nausea and vomiting) 017 03/03/2019 Primary osteoarthritis of right knee 06/12/2017 07/11/2017 Overview: Added automatically from request for surgery [id number] Acute pain of right knee 05/08/2017 017 Decreased ROM of right knee 05/08/201702/13 Weakness 05/08/2017 03/03/2019 Degeneration of lumbar intervertebral disc 11/0903/03/2019 Uncontrolled type 2 diabetes with neuropathy 10/201508/28/2016 Diabetes mellitus with neuropathy 05/18/2014 03/14/2016 Neurodermatitis, localized 01/02/201303/14 Disturbance of skin sensation 01/02/2013 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/2013 03/14/2016 Lichenification and lichen simplex chronicus 11/28/2016 Eczematous dermatitis 12/09/2011 11/28/2016 Pruritus 12/09/2011 11/28/2016 Xerosis cutis 12/09/2011 03/14/2016 Actinic skin damage 12/09/2011 03/14/2016 Solar lentigo 12/09/2011 03/14/2016 Incontinence of urine 06/20/2011 03/03/2019 Other and unspecified hyperlipidemia 11/29/2009 03/14/2016 Lumbosacral spondylosis without myelopathy 06/2303/14/2016 Thoracic or lumbosacral neuritis or radiculitis, unspecified 01/07/2007 03/14/2016 Unspecified disorder of skin and subcutaneous ti ssue 05/08/2006 03/14/2016 Spinal stenosis, lumbar theresa on, without neurogenic claudication 11/15/2005 03/14/2016 Pain in joint, lower leg 05/15/2005 016 Abdominal migraine, not intractable 01/31/2004 03/14/2016 Diabetic polyneuropathy 01/31/2004 03/14/20 16 documented as of this encounter (statuses as of 11/01/2021) [facility] Narrative* Problem Noted Date Resolved Date Tendonitis, Achilles, right 02/05/201902/13 Knee joint replacement status, right 07/10/2017 07/11/2017 PONV (postoperative nausea and vomiting) 017 03/03/2019 Primary osteoarthritis of right knee 06/12/2017 07/11/2017 Overview: Added automatically from request for surgery [id number] Acute pain of right knee 05/08/2017 017 Decreased ROM of right knee 05/08/201702/13 Weakness 05/08/2017 03/03/2019 Degeneration of lumbar intervertebral disc 11/0903/03/2019 Uncontrolled type 2 diabetes with neuropathy 10/201508/28/2016 Diabetes mellitus with neuropathy 05/18/2014 03/14/2016 Neurodermatitis, localized 01/02/201303/14 Disturbance of skin sensation 01/02/2013 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/2013 03/14/2016 Lichenification and lichen simplex chronicus 11/28/2016 Eczematous dermatitis 12/09/2011 11/28/2016 Pruritus 12/09/2011 11/28/2016 Xerosis cutis 12/09/2011 03/14/2016 Actinic skin damage 12/09/2011 03/14/2016 Solar lentigo 12/09/2011 03/14/2016 Incontinence of urine 06/20/2011 03/03/2019 Other and unspecified hyperlipidemia 11/29/2009 03/14/2016 Lumbosacral spondylosis without myelopathy 06/2303/14/2016 Thoracic or lumbosacral neuritis or radiculitis, unspecified 01/07/2007 03/14/2016 Unspecified disorder of skin and subcutaneous ti ssue 05/08/2006 03/14/2016 Spinal stenosis, lumbar theresa on, without neurogenic claudication 11/15/2005 03/14/2016 Pain in joint, lower leg 05/15/2005 016 Abdominal migraine, not intractable 01/31/2004 03/14/2016 Diabetic polyneuropathy 01/31/2004 03/14/20 16 documented as of this encounter (statuses as of 11/04/2021) [facility]* Problem Noted Date Resolved Date Tendonitis, Achilles, right 02/05/201902/13 Knee joint replacement status, right 07/10/2017 07/11/2017 PONV (postoperative nausea and vomiting) 017 03/03/2019 Primary osteoarthritis of right knee 06/12/2017 07/11/2017 Overview: Added automatically from request for surgery [id number] Acute pain of right knee 05/08/2017 017 Decreased ROM of right knee 05/08/201702/13 Weakness 05/08/2017 03/03/2019 Degeneration of lumbar intervertebral disc 11/0903/03/2019 Uncontrolled type 2 diabetes with neuropathy 10/201508/28/2016 Diabetes mellitus with neuropathy 05/18/2014 03/14/2016 Neurodermatitis, localized 01/02/201303/14 Disturbance of skin sensation 01/02/2013 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/2013 03/14/2016 Lichenification and lichen simplex chronicus 11/28/2016 Eczematous dermatitis 12/09/2011 11/28/2016 Pruritus 12/09/2011 11/28/2016 Xerosis cutis 12/09/2011 03/14/2016 Actinic skin damage 12/09/2011 03/14/2016 Solar lentigo 12/09/2011 03/14/2016 Incontinence of urine 06/20/2011 03/03/2019 Other and unspecified hyperlipidemia 11/29/2009 03/14/2016 Lumbosacral spondylosis without myelopathy 06/2303/14/2016 Thoracic or lumbosacral neuritis or radiculitis, unspecified 01/07/2007 03/14/2016 Unspecified disorder of skin and subcutaneous ti ssue 05/08/2006 03/14/2016 Spinal stenosis, lumbar theresa on, without neurogenic claudication 11/15/2005 03/14/2016 Pain in joint, lower leg 05/15/2005 016 Abdominal migraine, not intractable 01/31/2004 03/14/2016 Diabetic polyneuropathy 01/31/2004 03/14/20 16 documented as of this encounter (statuses as of 11/08/2021) [facility] History of Past illness Narrative* Problem Noted Date Resolved Date Tendonitis, Achilles, right 02/05/201902/13 Knee joint replacement status, right 07/10/2017 07/11/2017 PONV (postoperative nausea and vomiting) 017 03/03/2019 Primary osteoarthritis of right knee 06/12/2017 07/11/2017 Overview: Added automatically from request for surgery [id number] Acute pain of right knee 05/08/2017 017 Decreased ROM of right knee 05/08/201702/13 Weakness 05/08/2017 03/03/2019 Degeneration of lumbar intervertebral disc 11/0903/03/2019 Uncontrolled type 2 diabetes with neuropathy 10/201508/28/2016 Diabetes mellitus with neuropathy 05/18/2014 03/14/2016 Neurodermatitis, localized 01/02/201303/14 Disturbance of skin sensation 01/02/2013 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/2013 03/14/2016 Lichenification and lichen simplex chronicus 11/28/2016 Eczematous dermatitis 12/09/2011 11/28/2016 Pruritus 12/09/2011 11/28/2016 Xerosis cutis 12/09/2011 03/14/2016 Actinic skin damage 12/09/2011 03/14/2016 Solar lentigo 12/09/2011 03/14/2016 Incontinence of urine 06/20/2011 03/03/2019 Other and unspecified hyperlipidemia 11/29/2009 03/14/2016 Lumbosacral spondylosis without myelopathy 06/2303/14/2016 Thoracic or lumbosacral neuritis or radiculitis, unspecified 01/07/2007 03/14/2016 Unspecified disorder of skin and subcutaneous ti ssue 05/08/2006 03/14/2016 Spinal stenosis, lumbar theresa on, without neurogenic claudication 11/15/2005 03/14/2016 Pain in joint, lower leg 05/15/2005 016 Abdominal migraine, not intractable 01/31/2004 03/14/2016 Diabetic polyneuropathy 01/31/2004 03/14/20 16 documented as of this encounter (statuses as of 11/08/2021) [facility] History of Past illness Narrative* Problem Noted Date Resolved Date Tendonitis, Achilles, right 02/05/201902/13 Knee joint replacement status, right 07/10/2017 07/11/2017 PONV (postoperative nausea and vomiting) 017 03/03/2019 Primary osteoarthritis of right knee 06/12/2017 07/11/2017 Overview: Added automatically from request for surgery [id number] Acute pain of right knee 05/08/2017 017 Decreased ROM of right knee 05/08/201702/13 Weakness 05/08/2017 03/03/2019 Degeneration of lumbar intervertebral disc 11/0903/03/2019 Uncontrolled type 2 diabetes with neuropathy 10/201508/28/2016 Diabetes mellitus with neuropathy 05/18/2014 03/14/2016 Neurodermatitis, localized 01/02/201303/14 Disturbance of skin sensation 01/02/2013 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/2013 03/14/2016 Lichenification and lichen simplex chronicus 11/28/2016 Eczematous dermatitis 12/09/2011 11/28/2016 Pruritus 12/09/2011 11/28/2016 Xerosis cutis 12/09/2011 03/14/2016 Actinic skin damage 12/09/2011 03/14/2016 Solar lentigo 12/09/2011 03/14/2016 Incontinence of urine 06/20/2011 03/03/2019 Other and unspecified hyperlipidemia 11/29/2009 03/14/2016 Lumbosacral spondylosis without myelopathy 06/2303/14/2016 Thoracic or lumbosacral neuritis or radiculitis, unspecified 01/07/2007 03/14/2016 Unspecified disorder of skin and subcutaneous ti ssue 05/08/2006 03/14/2016 Spinal stenosis, lumbar theresa on, without neurogenic claudication 11/15/2005 03/14/2016 Pain in joint, lower leg 05/15/2005 016 Abdominal migraine, not intractable 01/31/2004 03/14/2016 Diabetic polyneuropathy 01/31/2004 03/14/20 16 documented as of this encounter (statuses as of 11/09/2021) [facility] History of Past illness Narrative* Problem Noted Date Resolved Date Tendonitis, Achilles, right 02/05/201902/13 Knee joint replacement status, right 07/10/2017 07/11/2017 PONV (postoperative nausea and vomiting) 017 03/03/2019 Primary osteoarthritis of right knee 06/12/2017 07/11/2017 Overview: Added automatically from request for surgery [id number] Acute pain of right knee 05/08/2017 017 Decreased ROM of right knee 05/08/201702/13 Weakness 05/08/2017 03/03/2019 Degeneration of lumbar intervertebral disc 11/0903/03/2019 Uncontrolled type 2 diabetes with neuropathy 10/201508/28/2016 Diabetes mellitus with neuropathy 05/18/2014 03/14/2016 Neurodermatitis, localized 01/02/201303/14 Disturbance of skin sensation 01/02/2013 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/2013 03/14/2016 Lichenification and lichen simplex chronicus 11/28/2016 Eczematous dermatitis 12/09/2011 11/28/2016 Pruritus 12/09/2011 11/28/2016 Xerosis cutis 12/09/2011 03/14/2016 Actinic skin damage 12/09/2011 03/14/2016 Solar lentigo 12/09/2011 03/14/2016 Incontinence of urine 06/20/2011 03/03/2019 Other and unspecified hyperlipidemia 11/29/2009 03/14/2016 Lumbosacral spondylosis without myelopathy 06/2303/14/2016 Thoracic or lumbosacral neuritis or radiculitis, unspecified 01/07/2007 03/14/2016 Unspecified disorder of skin and subcutaneous ti ssue 05/08/2006 03/14/2016 Spinal stenosis, lumbar theresa on, without neurogenic claudication 11/15/2005 03/14/2016 Pain in joint, lower leg 05/15/2005 016 Abdominal migraine, not intractable 01/31/2004 03/14/2016 Diabetic polyneuropathy 01/31/2004 03/14/20 16 documented as of this encounter (statuses as of 11/10/2021) [facility] History of Past illness Narrative* Problem Noted Date Resolved Date Tendonitis, Achilles, right 02/05/201902/13 Knee joint replacement status, right 07/10/2017 07/11/2017 PONV (postoperative nausea and vomiting) 017 03/03/2019 Primary osteoarthritis of right knee 06/12/2017 07/11/2017 Overview: Added automatically from request for surgery [id number] Acute pain of right knee 05/08/2017 017 Decreased ROM of right knee 05/08/201702/13 Weakness 05/08/2017 03/03/2019 Degeneration of lumbar intervertebral disc 11/0903/03/2019 Uncontrolled type 2 diabetes with neuropathy 10/201508/28/2016 Diabetes mellitus with neuropathy 05/18/2014 03/14/2016 Neurodermatitis, localized 01/02/201303/14 Disturbance of skin sensation 01/02/2013 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/2013 03/14/2016 Lichenification and lichen simplex chronicus 11/28/2016 Eczematous dermatitis 12/09/2011 11/28/2016 Pruritus 12/09/2011 11/28/2016 Xerosis cutis 12/09/2011 03/14/2016 Actinic skin damage 12/09/2011 03/14/2016 Solar lentigo 12/09/2011 03/14/2016 Incontinence of urine 06/20/2011 03/03/2019 Other and unspecified hyperlipidemia 11/29/2009 03/14/2016 Lumbosacral spondylosis without myelopathy 06/2303/14/2016 Thoracic or lumbosacral neuritis or radiculitis, unspecified 01/07/2007 03/14/2016 Unspecified disorder of skin and subcutaneous ti ssue 05/08/2006 03/14/2016 Spinal stenosis, lumbar theresa on, without neurogenic claudication 11/15/2005 03/14/2016 Pain in joint, lower leg 05/15/2005 016 Abdominal migraine, not intractable 01/31/2004 03/14/2016 Diabetic polyneuropathy 01/31/2004 03/14/20 16 documented as of this encounter (statuses as of 12/09/2021) [facility] History of Past illness Narrative* Problem Noted Date Resolved Date Tendonitis, Achilles, right 02/05/201902/13 Knee joint replacement status, right 07/10/2017 07/11/2017 PONV (postoperative nausea and vomiting) 017 03/03/2019 Primary osteoarthritis of right knee 06/12/2017 07/11/2017 Overview: Added automatically from request for surgery [id number] Acute pain of right knee 05/08/2017 017 Decreased ROM of right knee 05/08/201702/13 Weakness 05/08/2017 03/03/2019 Degeneration of lumbar intervertebral disc 11/0903/03/2019 Uncontrolled type 2 diabetes with neuropathy 10/201508/28/2016 Diabetes mellitus with neuropathy 05/18/2014 03/14/2016 Neurodermatitis, localized 01/02/201303/14 Disturbance of skin sensation 01/02/2013 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/2013 03/14/2016 Lichenification and lichen simplex chronicus 11/28/2016 Eczematous dermatitis 12/09/2011 11/28/2016 Pruritus 12/09/2011 11/28/2016 Xerosis cutis 12/09/2011 03/14/2016 Actinic skin damage 12/09/2011 03/14/2016 Solar lentigo 12/09/2011 03/14/2016 Incontinence of urine 06/20/2011 03/03/2019 Other and unspecified hyperlipidemia 11/29/2009 03/14/2016 Lumbosacral spondylosis without myelopathy 06/2303/14/2016 Thoracic or lumbosacral neuritis or radiculitis, unspecified 01/07/2007 03/14/2016 Unspecified disorder of skin and subcutaneous ti ssue 05/08/2006 03/14/2016 Spinal stenosis, lumbar theresa on, without neurogenic claudication 11/15/2005 03/14/2016 Pain in joint, lower leg 05/15/2005 016 Abdominal migraine, not intractable 01/31/2004 03/14/2016 Diabetic polyneuropathy 01/31/2004 03/14/20 16 documented as of this encounter (statuses as of 12/12/2021) [facility] History of Past illness Narrative* Problem Noted Date Resolved Date Tendonitis, Achilles, right 02/05/201902/13 Knee joint replacement status, right 07/10/2017 07/11/2017 PONV (postoperative nausea and vomiting) 017 03/03/2019 Primary osteoarthritis of right knee 06/12/2017 07/11/2017 Overview: Added automatically from request for surgery [id number] Acute pain of right knee 05/08/2017 017 Decreased ROM of right knee 05/08/201702/13 Weakness 05/08/2017 03/03/2019 Degeneration of lumbar intervertebral disc 11/0903/03/2019 Uncontrolled type 2 diabetes with neuropathy 10/201508/28/2016 Diabetes mellitus with neuropathy 05/18/2014 03/14/2016 Neurodermatitis, localized 01/02/201303/14 Disturbance of skin sensation 01/02/2013 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/2013 03/14/2016 Lichenification and lichen simplex chronicus 11/28/2016 Eczematous dermatitis 12/09/2011 11/28/2016 Pruritus 12/09/2011 11/28/2016 Xerosis cutis 12/09/2011 03/14/2016 Actinic skin damage 12/09/2011 03/14/2016 Solar lentigo 12/09/2011 03/14/2016 Incontinence of urine 06/20/2011 03/03/2019 Other and unspecified hyperlipidemia 11/29/2009 03/14/2016 Lumbosacral spondylosis without myelopathy 06/2303/14/2016 Thoracic or lumbosacral neuritis or radiculitis, unspecified 01/07/2007 03/14/2016 Unspecified disorder of skin and subcutaneous ti ssue 05/08/2006 03/14/2016 Spinal stenosis, lumbar theresa on, without neurogenic claudication 11/15/2005 03/14/2016 Pain in joint, lower leg 05/15/2005 016 Abdominal migraine, not intractable 01/31/2004 03/14/2016 Diabetic polyneuropathy 01/31/2004 03/14/20 16 documented as of this encounter (statuses as of 12/18/2021) [facility] History of Past illness Narrative* Problem Noted Date Resolved Date Tendonitis, Achilles, right 02/05/201902/13 Knee joint replacement status, right 07/10/2017 07/11/2017 PONV (postoperative nausea and vomiting) 017 03/03/2019 Primary osteoarthritis of right knee 06/12/2017 07/11/2017 Overview: Added automatically from request for surgery [id number] Acute pain of right knee 05/08/2017 017 Decreased ROM of right knee 05/08/201702/13 Weakness 05/08/2017 03/03/2019 Degeneration of lumbar intervertebral disc 11/0903/03/2019 Uncontrolled type 2 diabetes with neuropathy 10/201508/28/2016 Diabetes mellitus with neuropathy 05/18/2014 03/14/2016 Neurodermatitis, localized 01/02/201303/14 Disturbance of skin sensation 01/02/2013 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/2013 03/14/2016 Lichenification and lichen simplex chronicus 11/28/2016 Eczematous dermatitis 12/09/2011 11/28/2016 Pruritus 12/09/2011 11/28/2016 Xerosis cutis 12/09/2011 03/14/2016 Actinic skin damage 12/09/2011 03/14/2016 Solar lentigo 12/09/2011 03/14/2016 Incontinence of urine 06/20/2011 03/03/2019 Other and unspecified hyperlipidemia 11/29/2009 03/14/2016 Lumbosacral spondylosis without myelopathy 06/2303/14/2016 Thoracic or lumbosacral neuritis or radiculitis, unspecified 01/07/2007 03/14/2016 Unspecified disorder of skin and subcutaneous ti ssue 05/08/2006 03/14/2016 Spinal stenosis, lumbar theresa on, without neurogenic claudication 11/15/2005 03/14/2016 Pain in joint, lower leg 05/15/2005 016 Abdominal migraine, not intractable 01/31/2004 03/14/2016 Diabetic polyneuropathy 01/31/2004 03/14/20 16 documented as of this encounter (statuses as of 01/04/2022) [facility] History of Past illness Narrative* Problem Noted Date Resolved Date Tendonitis, Achilles, right 02/05/201902/13 Knee joint replacement status, right 07/10/2017 07/11/2017 PONV (postoperative nausea and vomiting) 017 03/03/2019 Primary osteoarthritis of right knee 06/12/2017 07/11/2017 Overview: Added automatically from request for surgery [id number] Acute pain of right knee 05/08/2017 017 Decreased ROM of right knee 05/08/201702/13 Weakness 05/08/2017 03/03/2019 Degeneration of lumbar intervertebral disc 11/0903/03/2019 Uncontrolled type 2 diabetes with neuropathy 10/201508/28/2016 Diabetes mellitus with neuropathy 05/18/2014 03/14/2016 Neurodermatitis, localized 01/02/201303/14 Disturbance of skin sensation 01/02/2013 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/2013 03/14/2016 Lichenification and lichen simplex chronicus 11/28/2016 Eczematous dermatitis 12/09/2011 11/28/2016 Pruritus 12/09/2011 11/28/2016 Xerosis cutis 12/09/2011 03/14/2016 Actinic skin damage 12/09/2011 03/14/2016 Solar lentigo 12/09/2011 03/14/2016 Incontinence of urine 06/20/2011 03/03/2019 Other and unspecified hyperlipidemia 11/29/2009 03/14/2016 Lumbosacral spondylosis without myelopathy 06/2303/14/2016 Thoracic or lumbosacral neuritis or radiculitis, unspecified 01/07/2007 03/14/2016 Unspecified disorder of skin and subcutaneous ti ssue 05/08/2006 03/14/2016 Spinal stenosis, lumbar theresa on, without neurogenic claudication 11/15/2005 03/14/2016 Pain in joint, lower leg 05/15/2005 016 Abdominal migraine, not intractable 01/31/2004 03/14/2016 Diabetic polyneuropathy 01/31/2004 03/14/20 16 documented as of this encounter (statuses as of 01/05/2022) [facility] Depression, unspecified [facility] Acute left-sided low back pain with left-sided sciatica [facility] Diagnosis Acute left-sided low back pain with left-sided sciatica- Primary [facility] Diagnosis Chronic left-sided low back pain with left-sided sciatica- Primary [facility] Diagnosis Olecranon bursitis of left elbow- Primary Olecranon bursitis Acute pain of left shoulder [facility] Diagnosis Left elbow pain- Primary Pain in joint, upper arm [facility]* Diagnosis 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 Type II or unspecified type diabetes mellitus with neurological manifestations, not stated as uncontrolled Pure hypercholesterolemia Essential hypertension, benign Microalbuminuria Proteinuria Malignant neoplasm of overlapping sites of bladder (HCC) Malignant neoplasm of other specified sites of bladder GERD without esophagitis Esophageal reflux [facility] Diagnosis Microcytosis- Primary Other abnormality of red blood cells 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) Type II or unspecified type diabetes mellitus with neurological manifestations, not stated as uncontrolled [facility] Change in bowel function- Primary Other symptoms involving digestive system Olecranon bursitis of left elbow Olecranon bursitis Screening for colon cancer Special screening for malignant neoplasms, colon [facility] Diagnosis Displacement of lumbar intervertebral disc without myelopathy- Primary [facility] Diagnosis Displacement of lumbar intervertebral disc without myelopathy- Primary Chronic left-sided low back pain with left-sided sciatica Chronic left shoulder pain Pain in joint, shoulder region [facility]* Diagnosis Controlled type 2 diabetes mellitus without complication, without long-term current use of insulin (HCC) [facility]* Diagnosis Pure hypercholesterolemia Anxiety with depression [facility]* Diagnosis Closed nondisplaced fracture of proximal phalanx of right thumb with routine healing, subsequent encounter- Primary [facility] Diagnosis Essential hypertension, benign [facility] Diagnosis Pure hypercholesterolemia- Primary 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) Type II or unspecified type diabetes mellitus with neurological manifestations, not stated as uncontrolled Essential hypertension, benign Malignant neoplasm of overlapping sites of bladder (HCC) Malignant neoplasm of other specified sites of bladder Displacement of lumbar intervertebral disc without myelopathy Postlaminectomy syndrome, lumbar region Microalbuminuria Proteinuria [facility] Diagnosis Anxiety with depression [facility] Diagnosis Screening mammogram for breast cancer- Primary [facility]* Diagnosis Controlled type 2 diabetes mellitus without complication, without long-term current use of insulin (HCC) [facility]* Diagnosis Essential hypertension, benign Benign paroxysmal positional vertigo, unspecified laterality GERD without esophagitis Esophageal reflux [facility]* Diagnosis Radiculopathy, lumbar region- Primary Thoracic or lumbosacral neuritis or radiculitis, unspecified Depression, unspecified depression type Essential hypertension, benign 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) Type II or unspecified type diabetes mellitus with neurological manifestations, not stated as uncontrolled Right carpal tunnel syndrome Carpal tunnel syndrome Pure hypercholesterolemia Malignant neoplasm of overlapping sites of bladder (HCC) Malignant neoplasm of other specified sites of bladder Displacement of lumbar intervertebral disc without myelopathy Primary osteoarthritis of first carpometacarpal joint of right hand Primary localized osteoarthrosis, hand Dementia without behavioral disturbance, psychotic disturbance, mood disturbance, or anxiety, unspecified dementia severity, unspecified dementia type (HCC) Heart murmur Undiagnosed cardiac murmurs Dermatitis Contact dermatitis and other eczema, due to unspecified cause [facility] this [facility] Diagnosis Renal insufficiency- Primary Unspecified disorder of kidney and ureter [facility] Diagnosis Esophageal spasm Dyskinesia of esophagus [facility] Diagnosis Esophageal spasm- Primary Dyskinesia of esophagus [facility] Diagnosis Renal insufficiency Unspecified disorder of kidney and ureter [facility] Diagnosis Anxiety with depression [facility] Diagnosis GERD without esophagitis Esophageal reflux documented in this encounter [facility] note* Diagnosis Radiculopathy, lumbar region- Primary Thoracic or lumbosacral neuritis or radiculitis, unspecified 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) Type II or unspecified type diabetes mellitus with neurological manifestations, not stated as uncontrolled Essential hypertension, benign Pure hypercholesterolemia Gastroesophageal reflux disease, unspecified whether esophagitis present Malignant neoplasm of overlapping sites of bladder (HCC) Malignant neoplasm of other specified sites of bladder [facility] this encounter [facility] Diagnosis Headache, unspecified headache type- Primary documented in this encounter [facility] for referral (narrative)* Diagnostic Procedure Only (Urgent) - Closed Specialty Diagnoses / Procedures Referred By Contac t Referred To Contact XR IMAGING Diagnoses Acute pain of left shoulder Procedures XR SHOULDER GENERAL 3V OR MORE AP/TRUE AP/OTHER LEFT RADEX SHOULDER COMPLETE MINIMUM 2 VIEWS Jessica Rivera PA-C [address] [place] [address] Xr Imaging Referral ID Status Reason Start Date Expiration Date V isits Requested Visits Authorized [id number] Closed Auto-Generate d Referral 12/09/2021 01/08/2023 1 1 * Diagnostic Procedure Only (Urgent) - Closed Specialty Diagnoses / Procedures Referred By Contac t Referred To Contact XR IMAGING Diagnoses Olecranon bursitis of left elbow Procedures XR ELBOW SPECIAL VIEWS AP/LAT/OTHER LEFT RADEX ELBOW COMPLETE MINIMUM 3 VIEWS Jessica Rivera PA-C [address] [place] [address] Xr Imaging Referral ID Status Reason Start Date Expiration Date V isits Requested Visits Authorized [id number] Closed Auto-Generate d Referral 12/09/2021 01/08/2023 1 1 [facility] for referral (narrative)* Outpatient Procedure (Routine) - Authorized Specialty Diagnoses / Procedures Referred By Contac t Referred To Contact [facility] Diagnoses Heart murmur Procedures ECHO ECHO TTHRC R-T 2D W/WOM-MODE COMPL SPEC&COLR D Kathie Julian MD [address] [place] [id number] [facility] [place] [address] [place] [address] Referral ID Status Reason Start Date Expiration Date Visits Requested Visits Authorized [id number] Authorized Auto-Generat ed Referral 12/13/2022 12/13/2023 1 1 [facility] for referral (narrative)* Diagnostic Procedure Only (Routine) - Closed Specialty Diagnoses / Procedures Referred By Contac Referred To Contact US IMAGING Diagnoses Renal insufficiency Procedures US KIDNEY/BLADDER US RETROPERITONEAL REAL TIME W/[place] [address] [place] [id number] [place] [id number] Referral ID Status Reason Start Date Expiration Date V isits Requested Visits Authorized [id number] Closed Auto-Generate d Referral 01/28/2023 02/27/2024 1 1 [facility] Summary Purpose Family History No Family History Records FoundNo Family History Records FoundNo Family History Records FoundNo Family History Records Found Advance Directives No Advanced Directives Records FoundDocuments on File 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 Advance Directive(s) 07/26/2021 10:03 AM Advance Directive(s) 06/30/2021 6:34 PM Advance Directive(s) 05/01/2021 8:04 AM Advance Directive(s) 02/17/2021 12:29 PM Sc anned 02-17-2021 Advance Directive(s) 02/17/2021 12:26 PM Advance Directive(s) 02/02/2021 2:49 PM Advance Directive(s) 12/17/2018 12:07 PM Advance Directive(s) 09/23/2018 10:20 AM Advance Directive(s) 07/29/2018 4:37 PM Advance Directive(s) 07/10/2017 6:25 AM Advance Directive(s) 09/11/2011 12:00 AM Advance Directive(s) 09/02/2006 12:00 AM Advance Directive(s) 08/29/2006 12:00 AM Documents on File 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 Advance Directive(s) 07/26/2021 10:03 AM Advance Directive(s) 06/30/2021 6:34 PM Advance Directive(s) 05/01/2021 8:04 AM Advance Directive(s) 02/17/2021 12:29 PM Hi anned 02-17-2021 Advance Directive(s) 02/17/2021 12:26 PM Advance Directive(s) 02/02/2021 2:49 PM Advance Directive(s) 12/17/2018 12:07 PM Advance Directive(s) 09/23/2018 10:20 AM Advance Directive(s) 07/29/2018 4:37 PM Advance Directive(s) 07/10/2017 6:25 AM Advance Directive(s) 09/11/2011 12:00 AM Advance Directive(s) 09/02/2006 12:00 AM Advance Directive(s) 08/29/2006 12:00 AM Documents on File 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 Advance Directive(s) 02/17/2021 12:26 PM Advance Directive(s) 09/11/2011 Advance Directive(s) 09/02/2006 Advance Directive(s) 08/29/2006 Documents on File 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 Advance Directive(s) 02/17/2021 12:26 PM Advance Directive(s) 09/11/2011 Advance Directive(s) 09/02/2006 Advance Directive(s) 08/29/2006 Reason for Referral Specialty Diagnoses / Procedures Referred By Contac t Referred To Contact [facility] Diagnoses Acute left-sided low back pain with left-sided sciatica Procedures CONSULT TO PHYSICAL THERAPY PHYSICAL THERAPY EVALUATION HIGH COMPLEX 45 MINS Kathie Julian MD [address] [place] [address] [facility] [place] [address] [place] [address] Referral ID Status Reason Start Date Expiration Date Visits Requested Visits Authorized [id number] Authorized PCP Requested Referral Auto-Generate d Referral 10/30/2021 10/30/2022 99 99 Specialty Diagnoses / Procedures Referred By Contac t Referred To Contact Orthopedics Diagnoses Chronic left-sided low back pain with left-sided sciatica Procedures CONSULT TO ORTHOPAEDICS OFFICE/OUTPATIENT [facility] 60-74 MINUTES Jeana Mendoza APRN.FACING MACHINE OPERATOR [address] [place] [address] Referral ID Status Reason Start Date Expiration Date Visits Requested Visits Authorized [id number] Authorized PCP Requested Referral 11/08/2021 11/08/2022 1 1 Specialty Diagnoses / Procedures Referred By Contac t Referred To Contact Pain Management Diagnoses Chronic left-sided low back pain with left-sided sciatica Procedures CONSULT TO PAIN MGT OFFICE/OUTPATIENT [facility] 60-74 MINUTES Jeana Mendoza, BENY.FACING MACHINE OPERATOR [address] [place] [address] Referral ID Status Reason Start Date Expiration Date Visits Requested Visits Authorized [id number] Authorized PCP Requested Referral 11/08/2021 11/08/2022 1 1 Specialty Diagnoses / Procedures Referred By Contac t Referred To Contact Orthopedics Diagnoses Olecranon bursitis of left elbow Procedures CONSULT TO ORTHOPAEDICS Kathie Julian MD [address] [place] [address] Referral ID Status Reason Start Date Expiration Date Visits Requested Visits Authorized [id number] Ref Not Required PCP Requested Referral 01/18/2022 01/18/2023 1 1 Specialty Diagnoses / Procedures Referred By Orlando t Referred To Contact Orthopedics Diagnoses Closed nondisplaced fracture of proximal phalanx of right thumb with routine healing, subsequent encounter Procedures CONSULT TO ORTHOPAEDICS Kathie Julian MD [address] [place] [address] Referral ID Status Reason Start Date Expiration Date Visits Requested Visits Authorized [id number] Ref Not Required PCP Requested Referral 03/23/2022 03/23/2023 1 1 Additional Source Comments INFORMATION SOURCE (unrecogn ized section and content) DATE CREATED AUTHOR AUTHOR'S ORGANIZ ATION 12/20/2018 [facility] DATE CREATED AUTHOR AUTHOR'S ORGANIZ ATION 07/28/2021 [facility] DATE CREATED AUTHOR AUTHOR'S ORGANIZ ATION 07/12/2023 [facility] Source Comments (unrecognize d section and content) In the event this informatio n is protected by the Federal Confidentiality of Alcohol and Drug Abuse Patient Records regulations: The Federal rules restrict any use of the information to criminally investigate or prosecute any alcohol or drug abuse patient.[facility] the event this information is protected by the Federal Confidentiality of Alcohol and Drug Abuse Patient Records regulations: The Federal rules restrict any use of the information to criminally investigate or prosecute any alcohol or drug abuse patient.[facility] Center[facility] the event this information is protected by the Federal Confidentiality of Alcohol and Drug Abuse Patient Records regulations: The Federal rules restrict any use of the information to criminally investigate or prosecute any alcohol or drug abuse patient.[facility] Center[facility] the event this information is protected by the Federal Confidentiality of Alcohol and Drug Abuse Patient Records regulations: The Federal rules restrict any use of the information to criminally investigate or prosecute any alcohol or drug abuse patient.[facility] CenterIn the event this information is protected by the Federal Confidentiality of Alcohol and Drug Abuse Patient Records regulations: The Federal rules restrict any use of the information to criminally investigate or prosecute any alcohol or drug abuse patient.[facility] CenterIn the event this information is protected by the Federal Confidentiality of Alcohol and Drug Abuse Patient Records regulations: The Federal rules restrict any use of the information to criminally investigate or prosecute any alcohol or drug abuse patient.[facility] CenterIn the event this information is protected by the Federal Confidentiality of Alcohol and Drug Abuse Patient Records regulations: The Federal rules restrict any use of the information to criminally investigate or prosecute any alcohol or drug abuse patient.[facility] CenterIn the event this information is protected by the Federal Confidentiality of Alcohol and Drug Abuse Patient Records regulations: The Federal rules restrict any use of the information to criminally investigate or prosecute any alcohol or drug abuse patient.[facility] CenterIn the event this information is protected by the Federal Confidentiality of Alcohol and Drug Abuse Patient Records regulations: The Federal rules restrict any use of the information to criminally investigate or prosecute any alcohol or drug abuse patient.[facility] CenterIn the event this information is protected by the Federal Confidentiality of Alcohol and Drug Abuse Patient Records regulations: The Federal rules restrict any use of the information to criminally investigate or prosecute any alcohol or drug abuse patient.[facility] CenterIn the event this information is protected by the Federal Confidentiality of Alcohol and Drug Abuse Patient Records regulations: The Federal rules restrict any use of the information to criminally investigate or prosecute any alcohol or drug abuse patient.[facility] CenterIn the event this information is protected by the Federal Confidentiality of Alcohol and Drug Abuse Patient Records regulations: The Federal rules restrict any use of the information to criminally investigate or prosecute any alcohol or drug abuse patient.[facility] CenterIn the event this information is protected by the Federal Confidentiality of Alcohol and Drug Abuse Patient Records regulations: The Federal rules restrict any use of the information to criminally investigate or prosecute any alcohol or drug abuse patient.[facility] CenterIn the event this information is protected by the Federal Confidentiality of Alcohol and Drug Abuse Patient Records regulations: The Federal rules restrict any use of the information to criminally investigate or prosecute any alcohol or drug abuse patient.[facility] CenterIn the event this information is protected by the Federal Confidentiality of Alcohol and Drug Abuse Patient Records regulations: The Federal rules restrict any use of the information to criminally investigate or prosecute any alcohol or drug abuse patient.[facility] CenterIn the event this information is protected by the Federal Confidentiality of Alcohol and Drug Abuse Patient Records regulations: The Federal rules restrict any use of the information to criminally investigate or prosecute any alcohol or drug abuse patient.[facility] CenterIn the event this information is protected by the Federal Confidentiality of Alcohol and Drug Abuse Patient Records regulations: The Federal rules restrict any use of the information to criminally investigate or prosecute any alcohol or drug abuse patient.[facility] CenterIn the event this information is protected by the Federal Confidentiality of Alcohol and Drug Abuse Patient Records regulations: The Federal rules restrict any use of the information to criminally investigate or prosecute any alcohol or drug abuse patient.[facility] CenterIn the event this information is protected by the Federal Confidentiality of Alcohol and Drug Abuse Patient Records regulations: The Federal rules restrict any use of the information to criminally investigate or prosecute any alcohol or drug abuse patient.[facility] CenterIn the event this information is protected by the Federal Confidentiality of Alcohol and Drug Abuse Patient Records regulations: The Federal rules restrict any use of the information to criminally investigate or prosecute any alcohol or drug abuse patient.[facility] CenterIn the event this information is protected by the Federal Confidentiality of Alcohol and Drug Abuse Patient Records regulations: The Federal rules restrict any use of the information to criminally investigate or prosecute any alcohol or drug abuse patient.[facility] CenterIn the event this information is protected by the Federal Confidentiality of Alcohol and Drug Abuse Patient Records regulations: The Federal rules restrict any use of the information to criminally investigate or prosecute any alcohol or drug abuse patient.[facility] CenterIn the event this information is protected by the Federal Confidentiality of Alcohol and Drug Abuse Patient Records regulations: The Federal rules restrict any use of the information to criminally investigate or prosecute any alcohol or drug abuse patient.[facility] CenterIn the event this information is protected by the Federal Confidentiality of Alcohol and Drug Abuse Patient Records regulations: The Federal rules restrict any use of the information to criminally investigate or prosecute any alcohol or drug abuse patient.[facility] CenterIn the event this information is protected by the Federal Confidentiality of Alcohol and Drug Abuse Patient Records regulations: The Federal rules restrict any use of the information to criminally investigate or prosecute any alcohol or drug abuse patient.[facility] CenterIn the event this information is protected by the Federal Confidentiality of Alcohol and Drug Abuse Patient Records regulations: The Federal rules restrict any use of the information to criminally investigate or prosecute any alcohol or drug abuse patient.[facility] CenterIn the event this information is protected by the Federal Confidentiality of Alcohol and Drug Abuse Patient Records regulations: The Federal rules restrict any use of the information to criminally investigate or prosecute any alcohol or drug abuse patient.[facility] CenterIn the event this information is protected by the Federal Confidentiality of Alcohol and Drug Abuse Patient Records regulations: The Federal rules restrict any use of the information to criminally investigate or prosecute any alcohol or drug abuse patient.[facility] CenterIn the event this information is protected by the Federal Confidentiality of Alcohol and Drug Abuse Patient Records regulations: The Federal rules restrict any use of the information to criminally investigate or prosecute any alcohol or drug abuse patient.[facility] CenterIn the event this information is protected by the Federal Confidentiality of Alcohol and Drug Abuse Patient Records regulations: The Federal rules restrict any use of the information to criminally investigate or prosecute any alcohol or drug abuse patient.[facility] CenterIn the event this information is protected by the Federal Confidentiality of Alcohol and Drug Abuse Patient Records regulations: The Federal rules restrict any use of the information to criminally investigate or prosecute any alcohol or drug abuse patient.[facility] CenterIn the event this information is protected by the Federal Confidentiality of Alcohol and Drug Abuse Patient Records regulations: The Federal rules restrict any use of the information to criminally investigate or prosecute any alcohol or drug abuse patient.[facility] CenterIn the event this information is protected by the Federal Confidentiality of Alcohol and Drug Abuse Patient Records regulations: The Federal rules restrict any use of the information to criminally investigate or prosecute any alcohol or drug abuse patient.[facility] CenterIn the event this information is protected by the Federal Confidentiality of Alcohol and Drug Abuse Patient Records regulations: The Federal rules restrict any use of the information to criminally investigate or prosecute any alcohol or drug abuse patient.[facility] CenterIn the event this information is protected by the Federal Confidentiality of Alcohol and Drug Abuse Patient Records regulations: The Federal rules restrict any use of the information to criminally investigate or prosecute any alcohol or drug abuse patient.[facility] CenterIn the event this information is protected by the Federal Confidentiality of Alcohol and Drug Abuse Patient Records regulations: The Federal rules restrict any use of the information to criminally investigate or prosecute any alcohol or drug abuse patient.[facility] CenterIn the event this information is protected by the Federal Confidentiality of Alcohol and Drug Abuse Patient Records regulations: The Federal rules restrict any use of the information to criminally investigate or prosecute any alcohol or drug abuse patient.[facility] CenterIn the event this information is protected by the Federal Confidentiality of Alcohol and Drug Abuse Patient Records regulations: The Federal rules restrict any use of the information to criminally investigate or prosecute any alcohol or drug abuse patient.[facility] CenterIn the event this information is protected by the Federal Confidentiality of Alcohol and Drug Abuse Patient Records regulations: The Federal rules restrict any use of the information to criminally investigate or prosecute any alcohol or drug abuse patient.[facility] CenterIn the event this information is protected by the Federal Confidentiality of Alcohol and Drug Abuse Patient Records regulations: The Federal rules restrict any use of the information to criminally investigate or prosecute any alcohol or drug abuse patient.[facility] CenterIn the event this information is protected by the Federal Confidentiality of Alcohol and Drug Abuse Patient Records regulations: The Federal rules restrict any use of the information to criminally investigate or prosecute any alcohol or drug abuse patient.[facility] CenterIn the event this information is protected by the Federal Confidentiality of Alcohol and Drug Abuse Patient Records regulations: The Federal rules restrict any use of the information to criminally investigate or prosecute any alcohol or drug abuse patient.[facility] CenterIn the event this information is protected by the Federal Confidentiality of Alcohol and Drug Abuse Patient Records regulations: The Federal rules restrict any use of the information to criminally investigate or prosecute any alcohol or drug abuse patient.[facility] CenterIn the event this information is protected by the Federal Confidentiality of Alcohol and Drug Abuse Patient Records regulations: The Federal rules restrict any use of the information to criminally investigate or prosecute any alcohol or drug abuse patient.[facility] CenterIn the event this information is protected by the Federal Confidentiality of Alcohol and Drug Abuse Patient Records regulations: The Federal rules restrict any use of the information to criminally investigate or prosecute any alcohol or drug abuse patient.[facility] CenterIn the event this information is protected by the Federal Confidentiality of Alcohol and Drug Abuse Patient Records regulations: The Federal rules restrict any use of the information to criminally investigate or prosecute any alcohol or drug abuse patient.[facility] CenterIn the event this information is protected by the Federal Confidentiality of Alcohol and Drug Abuse Patient Records regulations: The Federal rules restrict any use of the information to criminally investigate or prosecute any alcohol or drug abuse patient.[facility] CenterIn the event this information is protected by the Federal Confidentiality of Alcohol and Drug Abuse Patient Records regulations: The Federal rules restrict any use of the information to criminally investigate or prosecute any alcohol or drug abuse patient.[facility] CenterIn the event this information is protected by the Federal Confidentiality of Alcohol and Drug Abuse Patient Records regulations: The Federal rules restrict any use of the information to criminally investigate or prosecute any alcohol or drug abuse patient.[facility] CenterIn the event this information is protected by the Federal Confidentiality of Alcohol and Drug Abuse Patient Records regulations: The Federal rules restrict any use of the information to criminally investigate or prosecute any alcohol or drug abuse patient.[facility] CenterIn the event this information is protected by the Federal Confidentiality of Alcohol and Drug Abuse Patient Records regulations: The Federal rules restrict any use of the information to criminally investigate or prosecute any alcohol or drug abuse patient.[facility] CenterIn the event this information is protected by the Federal Confidentiality of Alcohol and Drug Abuse Patient Records regulations: The Federal rules restrict any use of the information to criminally investigate or prosecute any alcohol or drug abuse patient.[facility] CenterIn the event this information is protected by the Federal Confidentiality of Alcohol and Drug Abuse Patient Records regulations: The Federal rules restrict any use of the information to criminally investigate or prosecute any alcohol or drug abuse patient.[facility] CenterIn the event this information is protected by the Federal Confidentiality of Alcohol and Drug Abuse Patient Records regulations: The Federal rules restrict any use of the information to criminally investigate or prosecute any alcohol or drug abuse patient.[facility] CenterIn the event this information is protected by the Federal Confidentiality of Alcohol and Drug Abuse Patient Records regulations: The Federal rules restrict any use of the information to criminally investigate or prosecute any alcohol or drug abuse patient.[facility] CenterIn the event this information is protected by the Federal Confidentiality of Alcohol and Drug Abuse Patient Records regulations: The Federal rules restrict any use of the information to criminally investigate or prosecute any alcohol or drug abuse patient.[facility] Reason for Visit (unrecogniz ed section and content) Reason Onset Date Comments Refill Request 10/20/2021 Reason Comments PT Eval Patient Education Specialty Diagnoses / Procedures Referred By Orlando t Referred To Contact [facility] Diagnoses Acute left-sided low back pain with left-sided sciatica Procedures CONSULT TO PHYSICAL THERAPY PHYSICAL THERAPY EVALUATION HIGH COMPLEX 45 MINS Kathie Julian MD [address] [place] [address] [facility] [address] [place] [address] Referral ID Status Reason Start Date Expiration Date Visits Requested Visits Authorized [id number] Authorized PCP Requested Referral Auto-Generate d Referral 10/30/2021 10/30/2022 99 99 Reason Comments Orders Patient Update Reason Comments left leg sciatica Reason Comments Back Pain LEFT leg/hip & back x 1 month Reason Comments Release Of Medical Records Reason Comments Fall left elbow and shoul ceci pain x 1 week Reason Comments Prescription Refills Reason Onset Date Comments Refill Request 12/18/2021 Reason Comments Appointment Reason Comments Derm Problem left elbow Reason Comments F/U 6 months Reason Comments Results Reason Comments Change In Bowel Habits Reason Comments Patient Update Reason Comments Orders Reason Comments Wheelchair Evaluation Reason Onset Date Comments Refill Request 03/12/2022 Reason Comments preop clearance Reason Comments pre op clearance letter Reason Comments Results Reason Comments Home Health Orders Reason Comments Physical Therapy Plan of Care Reason Onset Date Comments Refill Request 04/24/2022 Reason Comments medication question/refill Reason Onset Date Comments Refill Request 06/06/2022 Reason Comments Patient Update Appointment Reason Comments Follow Up 6 month Reason Onset Date Comments Refill Request 07/19/2022 Reason Onset Date Comments Refill Request 07/30/2022 Reason Comments Patient Question Orders Reason Onset Date Comments Refill Request 09/11/2022 Reason Comments Refill Request Patient assistance Reason Comments Patient Assistance januvia Reason Onset Date Comments Refill Request 10/09/2022 Reason Onset Date Comments Refill Request 10/12/2022 Reason Comments Follow Up Reason Onset Date Comments Refill Request 02/18/2023 ER F/U 02/18/2023 esophageal spasm s Reason Comments ER F/U [facility] ER 02/18/23 dx: ab d pain Reason Onset Date Comments Refill Request 03/07/2023 Reason Comments Radiology US Specialty Diagnoses / Procedures Referred By Orlando t Referred To Contact US IMAGING Diagnoses Renal insufficiency Procedures US KIDNEY/BLADDER US RETROPERITONEAL REAL TIME W/IMAGE COMPLETE Kathie Julian MD [address] [place] [address] [place] [address] Referral ID Status Reason Start Date Expiration Date V isits Requested Visits Authorized [id number] Closed Auto-Generate d Referral 01/28/2023 02/27/2024 1 1 Reason Onset Date Comments Refill Request 05/22/2023 Reason Comments Medication Request Reason Onset Date Comments Refill Request 06/05/2023 Reason Comments 6 Month Exam Reason Comments Patient Update Patient Question Medication [facility] Teams (unrecognized sec tion and content) 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 Start Date End Date Kathie Julian MD [address] [place] [id number] PCP - General Family Practice 12/07/15 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 Start Date End Date Kathie Julian MD [address] [place] [id number] PCP - General Family Practice 12/07/15 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 Start Date End Date Kathie Julian MD [address] [place] [phone] PCP - General Family Practice 12/07/15 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 [place] [address] PCP - General Family Medicine 12/07/15 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 [place] [address] PCP - General Family Medicine 12/07/15 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 [place] [address] PCP - General Family Medicine 12/07/15 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 [place] [address] PCP - General Family Medicine 12/07/15 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 [place] [address] PCP - General Family Medicine 12/07/15 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 [place] [address] PCP - General Family Medicine 12/07/15 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 Start Date End Date Kathie Julian MD [address] [place] [address] PCP - General Family Medicine 12/07/15 FOR RECORDS PERTAINING TO PATIENTS WHO ARE OR HAVE BEEN ENROLLED IN A CHEMICAL DEPENDENCY/SUBSTANCEABUSE PROGRAM, SOME INFORMATION MAY BE OMITTED. This clinical summary was aggregated from multiple sources. Caution should be exercised in using it in the provision of clinical care. This summary normalizes information from multiple sources, and as a consequence, information in this document may materially change the coding, format and clinical context of patient data. In addition, data may be omitted in some cases. CLINICAL DECISIONS SHOULD BE BASED ON THE PRIMARY CLINICAL RECORDS. [employer] provides no warranty or guarantee of the accuracy or completeness of information in this document.
--- NOTE | 2023-08-04 20:24 | EDS_ITS ---
HPI <BRIAN Martinez - Last Filed: 08/04/23 21:31> HPI - GI History of Present Illness Chief Complaint: Constipation Narrative Narrative: Patient presenting today due to lower abdominal pain that has been sharp and, knife-like and intermittent since this afternoon. She reports that she has had 3-4 episodes of nausea and vomiting today. She reports concerns for constipation. She states that she normally has a bowel movement daily, she has not had a bowel movement today, last bowel movement was yesterday and was normal for her. She denies any history of bowel obstruction. Previous abdominal surgeries include cholecystectomy and 2 C-sections. Patient had [facility] where [facility] and has had lower back pain since. She denies fevers, chills, hematemesis, and urinary symptoms. PFS <BRIAN Martinez - Last Filed: 08/04/23 21:31> [facility] Medical History Ambulates with cane Arthritis Back pain Cancer Carpal tunnel syndrome Depression Diabetes Dietary restriction Essential hypertension Fecal incontinence Forgetfulness GI bleeding High cholesterol History of hiatal hernia History of pain when walking History of stress test Hx of cataract Hypertension Injury of back Kidney stone on left side Liver lesion, right lobe Migraine headache Multiple lung nodules Nausea Normal stress echocardiogram Open wound Pancreatitis Peripheral neuropathy Type II diabetes mellitus Wears glasses Home Medications atorvastatin 40 mg tablet 40 mg PO QHS cholestrol 02/14/14 [History Last Taken 10 Days Ago ~04/22/21] tolterodine 2 mg capsule,extended release 24 hr (Detrol LA) 2 mg PO QHS overactive bladder 02/14/14 [History Last Taken 05/01/21] valsartan 320 mg tablet 320 mg PO DAILY Cholesterol 04/10/21 [History Last Taken 07/05/21 06:30] amlodipine 10 mg tablet 10 mg PO DAILY bp 05/02/21 [History Last Taken 03/26/22 05:00] bupropion HCl 150 mg 24 hr tablet, extended release 150 mg PO DAILY mood 05/02/21 [History Last Taken 03/26/22 05:00] fluoxetine 40 mg capsule 40 mg PO DAILY depression 05/02/21 [History Last Taken 03/26/22 05:00] hydrochlorothiazide 12.5 mg capsule 12.5 mg PO DAILY bp/fluid 05/02/21 [History Last Taken 10 Days Ago ~04/22/21] metformin 1,000 mg tablet 1,000 mg PO BID dm 05/02/21 [History Last Taken 05/01/21] calcium carbonate 600 mg-vitamin D3 5 mcg (200 unit) tablet 1 tab PO DAILY Supplement 03/21/22 [History Last Taken Unknown] Lactobacillus acidophilus 20 billion cell capsule (Florajen Acidophilus) 20,000 mmu cells PO DAILY 01/25/23 [History Last Taken Unknown] clobetasol 0.05 % topical ointment 1 applic topical BID PRN rash 01/25/23 [History Last Taken Unknown] hyoscyamine sulfate 0.125 mg sublingual tablet 0.125 mg sublingual Q4H PRN dyspepsia 01/25/23 [History Last Taken Unknown] linagliptin 5 mg tablet 5 mg PO DAILY 01/25/23 [History Last Taken Unknown] meclizine 12.5 mg tablet 12.5 mg PO Q6H PRN dizziness 01/25/23 [History Last Taken Unknown] nystatin 100,000 unit/gram topical powder 1 applic topical BID PRN rash 02/13/23 [History Last Taken Unknown] ondansetron 4 mg disintegrating tablet 4 mg PO Q6H PRN nausea and vomiting 02/13/23 [History Last Taken Unknown] aspirin 81 mg chewable tablet 162 mg (2 x 81 mg) PO DAILYCM #30 tabs 06/21/23 [Rx Last Taken Unknown] acetaminophen 325 mg capsule (Tylenol) 650 mg PO Q4H PRN fever or pain 08/04/23 [History Last Taken Unknown] loperamide 2 mg capsule (Anti-Diarrheal (loperamide)) 2 mg PO Q6H PRN loose stool 08/04/23 [History Last Taken Unknown] magnesium hydroxide 400 mg/5 mL oral suspension (Milk of Magnesia) 30 ml PO DAILY PRN constipation 08/04/23 [History Last Taken Unknown] sennosides 8.6 mg-docusate sodium 50 mg capsule (Senna Plus) 1 tab-cap PO DAILY PRN constipation 08/04/23 [History Last Taken Unknown] Allergy/AdvReac Type Severity Reaction Status Date / Time acetaminophen [From Vicodin] Allergy Severe Anaphylaxis Verified 06/20/23 16:39 duloxetine Allergy Severe Hallucinati Verified 06/20/23 16:39 ons hydrocodone [From Vicodin] Allergy Severe Anaphylaxis Verified 06/20/23 16:39 levofloxacin [From Levaquin] Allergy Unknown Hallucinations, Verified 06/20/23 16:39 joint pain oxaprozin Allergy Unknown Unknown Verified 06/20/23 16:39 prednisone Allergy Unknown Unknown Verified 06/20/23 16:39 codeine Allergy Anaphylaxis Verified 06/20/23 16:39 crab Allergy Swollen Verified 06/20/23 16:39 lymph glands hydrocodone bitartrate AdvReac Vomiting Verified 06/20/23 16:39 [From Vicodin] zolpidem tartrate AdvReac Other Verified 06/20/23 16:39 [From Ambien] Family History Grandmother Parkinson disease Father Hypertension CVA (cerebral vascular accident) Diabetes Myocardial infarction Brother Sarcoid Surgical History H/O: hysterectomy History of 2 sections History of back surgery History of cataract extraction History of cholecystectomy Hx of cystoscopy Hx of detached retina repair Hx of total knee replacement S/P laminectomy Social History household members: none Smoking Status: Unknown if ever smoked how long ago did patient quit smokin alcohol intake: never substance use type: does not use caffeine: No ROS <BRIAN Martinez - Last Filed: 08/04/23 21:31> ROS ED Constitutional Constitutional ED: Denies chills or fever(s) Cardiovascular Cardiovascular: Denies chest pain Respiratory/Chest Respiratory/Chest: Denies cough or dyspnea Gastrointestinal Gastrointestinal: Reports abdominal pain, constipation, nausea and vomiting; Denies diarrhea Genitourinary Genitourinary ED: Denies dysuria, hematuria or urinary urgency Musculoskeletal Musculoskeletal: Reports back pain Integumentary Denies rash Neurologic Neurologic: Denies weakness EXAM <BRIAN Martinez - Last Filed: 08/04/23 21:31> Physical Exam Const Vital Signs: 08/04/23 19:42 Temperature 97.5 F L Temperature Source Temporal Pulse Rate 81 Respiratory Rate 16 Blood Pressure 129/65 H Blood Pressure Mean 86 Pulse Ox 99 Oxygen Delivery Method Room Air Positive well nourished, well developed and no apparent distress General Appearance ED: well developed HEENT Reports normocephalic and head/scalp atraumatic Mouth ED: Yes moist mucous membranes normal Eyes PERRL and EOMs intact bilaterally Neck full ROM and supple Chest Wall inspection of chest normal Resp normal respiratory effort and clear to auscultation bilaterally Cardio regular rate and regular rhythm GI soft to palpation, non-distended and no masses GI Narrative: Generalized lower abdominal tenderness to palpation, no rigidity, guarding, or peritoneal signs. Back/Spine normal ROM Back/Spine Narrative: Midline tenderness to the lumbar spine, no step-offs. Extremity normal to inspection and full ROM Neuro oriented x3, CN's II-XII intact bilaterally, moves all extremities, no focal motor deficits and no sensory deficits noted Sensorium / Orientation: awake and alert Psych mental status grossly normal and thought process normal Skin no rashes or lesions noted and no wounds <Tim Ontiveros MD - Last Filed: 08/04/23 23:42> Physical Exam Const Vital Signs: 08/04/23 19:42 Temperature 97.5 F L Temperature Source Temporal Pulse Rate 81 Respiratory Rate 16 Blood Pressure 129/65 H Blood Pressure Mean 86 Pulse Ox 99 Oxygen Delivery Method Room Air MDM <BRIAN Martinez - Last Filed: 08/04/23 21:31> [facility] Narrative Medical decision making narrative: Patient presenting due to abdominal pain, nausea, vomiting, and concerns for constipation. Last BM was yesterday. No history of bowel obstruction. She does have generalized tenderness to palpation to her abdomen. CT scan will be obtained to rule out bowel obstruction and other abdominal etiology. Labs will be obtained. She was reported low back pain after a mechanical fall that occurred a few days ago. She does have midline tenderness to her lumbar and sacral spine. CT of the lumbar spine will also be obtained. She was given half a liter of IV fluids. Workup is pending. Lab Data Attestation: I reviewed the patient's lab results. Lab results narrative: WBC 13.9, BUN 22, creatinine 1.3, glucose 233 Labs: Laboratory Results - last 24 hr 08/04/23 08/04/23 20:25 22:45 WBC 13.9 H RBC 5.02 Hgb 12.9 Hct 40.9 MCV 81.5 MCH 25.7 L MCHC 31.5 L RDW Std Deviation 45.8 H RDW Coeff of Finesse 15.4 H Plt Count 193 MPV 11.6 Immature Gran % (Auto) 0.500 Neut % (Auto) 78.5 H Lymph % (Auto) 13.1 L [place] % (Auto) 6.4 Eos % (Auto) 1.4 Baso % (Auto) 0.1 Absolute Neuts (auto) 10.9 H Absolute Lymphs (auto) 1.81 Nucleated RBC % 0 Sodium 136 Potassium 3.7 Chloride 99 Carbon Dioxide 30.0 Anion Gap 7 BUN 22 H Creatinine 1.30 H Estim Creat Clear Calc 27.60 Est GFR (MDRD) Af Amer 50 L Est GFR (MDRD) Non-Af 42 L BUN/Creatinine Ratio 16.9 Glucose 233 H Calcium 9.7 Total Bilirubin 0.90 AST 18 ALT 22 Alkaline Phosphatase 92 Total Protein 7.2 Albumin 3.5 Globulin 3.7 Albumin/Globulin Ratio 0.9 Lipase 60 Urine Color Yellow Urine Clarity Clear Urine pH 8.0 Ur Specific Rodney 1.010 Urine Protein 15 H Urine Glucose (UA) 1000 H Urine Ketones Negative Urine Occult Blood Negative Urine Nitrite Negative Urine Bilirubin Negative Urine Urobilinogen Normal Ur Leukocyte Esterase Negative Urine RBC 0 SEEN Urine WBC 0-5 SEEN Ur Squamous Epith Cells 0-5 SEEN Urine Bacteria 0 SEEN Urine Mucus 0 SEEN Radiography Diagnostic Testing: Clinical Impression(s) from Imaging Studies Abdomen/Pelvis CT 08/04/23 20:12 IMPRESSION: Constipation. Question severe distal proctitis versus rectal lesion/neoplasm not excluded. Correlation with physical exam recommended. Stable hypoattenuated linear density most compatible with benign process. Status post cholecystectomy. Mild hiatal hernia. Question minimal right hydronephrosis and hydroureter with etiology indeterminate. A distal stricture, lesion along the ureter or urinary bladder cannot be excluded, versus recently passed stone. Clinical correlation recommended. Electronically Signed: Ammy Hamm MD at 22:12 EST , Lumbar Spine CT 08/04/23 20:25 IMPRESSION: Fracture of S3 vertebral body and possible S2 with fracture of the S2 posterior elements/spinous process. 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 No acute fracture or subluxation of the lumbar spine. Electronically Signed: Ammy Hamm MD at 22:02 EST , <Tim Ontiveros MD - Last Filed: 08/04/23 23:42> [facility] Narrative Medical decision making narrative: Patient presenting due to abdominal pain, nausea, vomiting, and concerns for constipation. Last BM was yesterday. No history of bowel obstruction. She does have generalized tenderness to palpation to her abdomen. CT scan will be obtained to rule out bowel obstruction and other abdominal etiology. Labs will be obtained. She was reported low back pain after a mechanical fall that occurred a few days ago. She does have midline tenderness to her lumbar and sacral spine. CT of the lumbar spine will also be obtained. She was given half a liter of IV fluids. Workup is pending. Dr. Ontiveros: I have personally performed a face to face assessment of the patient and have reviewed the SHERYL Note. I performed a substantive portion of the visit including all aspects of the following. My lemon findings include: History is constipation, no bowel movement since yesterday with lower abdominal pain. History of recent fall, history and physical limited secondary to dementia. According to son, patient lives in assisted living at [place] and was told to bring patient to the emergency department secondary to lower abdominal pain, constipation. I reviewed her laboratory work and she has a leukocytosis of 13.9, platelet count normal at 193, hemoglobin normal at 12.9, electrolyte panel is grossly unremarkable with a normal sodium of 136 and potassium 3.7. Lipase is normal at 60. Urinalysis is negative for infection. I reviewed the radiology report of the CT of the lumbar spine and while there is degenerative changes there is a sacral fracture that is nondisplaced and a possible sacral spinous process fracture as well. Treatment be symptomatic. She was able to ambulate to the bathroom with a walker. Additionally, her CT of the abdomen and pelvis does show constipation and concern for proctitis. Rectal mass cannot be ruled out, and she may have thickening secondary to carcinoma versus fecal stasis. Chaperoned rectal examination was performed and there is no evidence of fecal impaction. Given her leukocytosis and proctitis, I discussed the patient with Dr. López for observation on the medical floor. She can be seen by her inspector repairer Dr. Rich. Disposition is assigned observation. Patient is in stable condition. Exam is afebrile. Vital signs noted. Abdomen soft and nontender with normal active bowel sounds. Chaperoned rectal examination reveals no fecal impaction. Medical Decision Making: As above. Assigned to observation. Other additions or changes: [None] History & Record Review Discussion w/independent historian: Patient and Family Lab Data Labs: Laboratory Results - last 24 hr 08/04/23 08/04/23 20:25 22:45 WBC 13.9 H RBC 5.02 Hgb 12.9 Hct 40.9 MCV 81.5 MCH 25.7 L MCHC 31.5 L RDW Std Deviation 45.8 H RDW Coeff of Finesse 15.4 H Plt Count 193 MPV 11.6 Immature Gran % (Auto) 0.500 Neut % (Auto) 78.5 H Lymph % (Auto) 13.1 L [place] % (Auto) 6.4 Eos % (Auto) 1.4 Baso % (Auto) 0.1 Absolute Neuts (auto) 10.9 H Absolute Lymphs (auto) 1.81 Nucleated RBC % 0 Sodium 136 Potassium 3.7 Chloride 99 Carbon Dioxide 30.0 Anion Gap 7 BUN 22 H Creatinine 1.30 H Estim Creat Clear Calc 27.60 Est GFR (MDRD) Af Amer 50 L Est GFR (MDRD) Non-Af 42 L BUN/Creatinine Ratio 16.9 Glucose 233 H Calcium 9.7 Total Bilirubin 0.90 AST 18 ALT 22 Alkaline Phosphatase 92 Total Protein 7.2 Albumin 3.5 Globulin 3.7 Albumin/Globulin Ratio 0.9 Lipase 60 Urine Color Yellow Urine Clarity Clear Urine pH 8.0 Ur Specific Rodney 1.010 Urine Protein 15 H Urine Glucose (UA) 1000 H Urine Ketones Negative Urine Occult Blood Negative Urine Nitrite Negative Urine Bilirubin Negative Urine Urobilinogen Normal Ur Leukocyte Esterase Negative Urine RBC 0 SEEN Urine WBC 0-5 SEEN Ur Squamous Epith Cells 0-5 SEEN Urine Bacteria 0 SEEN Urine Mucus 0 SEEN Radiography Diagnostic Testing: Clinical Impression(s) from Imaging Studies Abdomen/Pelvis CT 08/04/23 20:12 IMPRESSION: Constipation. Question severe distal proctitis versus rectal lesion/neoplasm not excluded. Correlation with physical exam recommended. Stable hypoattenuated linear density most compatible with benign process. Status post cholecystectomy. Mild hiatal hernia. Question minimal right hydronephrosis and hydroureter with etiology indeterminate. A distal stricture, lesion along the ureter or urinary bladder cannot be excluded, versus recently passed stone. Clinical correlation recommended. Electronically Signed: Ammy Hamm MD at 22:12 EST , Lumbar Spine CT 08/04/23 20:25 IMPRESSION: Fracture of S3 vertebral body and possible S2 with fracture of the S2 posterior elements/spinous process. 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 No acute fracture or subluxation of the lumbar spine. Electronically Signed: Ammy Hamm MD at 22:02 EST , Discharge Plan Dx/Rx/DC Orders Clinical Impression: Proctitis, Sacral fracture, Constipation Disposition Disposition: Acute Care Hospital [facility]
--- NOTE | 2023-08-04 20:25 | CT_ITS ---
STUDY: CT LUMBAR SPINE WITHOUT CONTRAST REASON FOR EXAM: Female, 83 years old. back pain, fall RADIATION DOSAGE (If Supplied By Facility): CTDIvol = ( 9.51 ) mGy, DLP = ( 876.03 ) mGycm TECHNIQUE: The patient was scanned in a multi detector CT scanner. High resolution transaxial imaging was performed. Images were obtained from T11-T12 to sacrococcygeal junction. Sagittal and coronal images were reconstructed. Individualized dose optimization techniques were used for this CT. COMPARISON: None FINDINGS: Normal lumbar lordosis. Mild scoliosis with convexity to the right versus tilted positioning. Normal alignment of the lumbar vertebral bodies. Normal vertebrae of the lumbar spine with no acute fracture. L1-2: Normal endplates. Normal disc height and morphology. Hypertrophy of the bilateral facet joints. Normal central canal and bilateral lateral recesses. Normal bilateral intervertebral neural foramina. L2-3: Severe disc degenerative disease with vacuum phenomenon and narrowing of disc height. Mild diffuse posterior disc bulge. Bilateral hypertrophy of ligamentum flavum and facet complex. Narrowing of thecal sac circumferentially with no severe spinal stenosis. L3-4: Severe degenerative disease with vacuum phenomenon. Status post posterior laminectomy. No spinal stenosis. No severe neural foramina encroachment. L4-5: Severe degenerative disease with prior laminectomy at L3 and L4. No severe spinal stenosis. No neural foraminal encroachment. L5-S1: Mild diffuse posterior disc bulge. Hypertrophy of ligamentum flavum and facet complex. No central canal stenosis or neural foraminal encroachment. There is a fracture through the spinous processes at S3 with a fracture through the vertebral body of S3 and possible S2. Mild prevertebral soft tissue swelling. CT/Spine Lumbar without Contrast IMPRESSION: Fracture of S3 vertebral body and possible S2 with fracture of the S2 posterior elements/spinous process. 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 No acute fracture or subluxation of the lumbar spine. Electronically Signed: Ammy Hamm MD at 22:02 EST ,
[2023-08-04 20:40] LABS: Absolute Lymphocyte Count 1.81 X10^3/uL (0.83-4.51); Absolute Neutrophil Count 10.9 X10^3/uL (2.0-7.7); Basophil# 0.02 X10^3/uL; Basophil% 0.1 % (0-1); Eosinophil# 0.19 X10^3/uL; Eosinophils% 1.4 % (0-5); Hematocrit 40.9 % (37-47); Hemoglobin 12.9 g/dL (12.0-15.0); Lymphocyte # 1.81 X10^3/ul (0.83-4.51); Lymphocyte % 13.1 % (19-41); Mean Corp Hgb Conc 31.5 g/dL (32-36); Mean Corpuscular Hgb 25.7 pg (27.0-32.0); Mean Corpuscular Volume 81.5 fL (81-99); Mean Platelet Vol. 11.6 fl (6.2-12.0); Monocyte# 0.89 X10^3/uL; Monocyte% 6.4 % (0-10); NRBC Flagged by Analyzer 0 % (0-5); Neutrophil # 10.88 X10^3/uL (2.7-7.7); Neutrophil % 78.5 % (47-70); Platelet Count 193 K/mm3 (150-450); RBC Distribution Width CV 15.4 % (11.6-14.6); RBC Distribution Width SD 45.8 fl (35.1-43.9); Red Blood Count 5.02 M/mm3 (4.2-5.4); White Blood Count 13.9 K/mm3 (4.4-11.0)
[2023-08-04 20:58] LABS: ALB/GLOB Ratio 0.9 RATIO (0.9-2.4); AST(SGOT) 18 U/L (15-37); Alanine Aminotransfer ALT/SGPT 22 U/L (13-56); Albumin, Serum 3.5 g/dL (3.2-5.0); Alkaline Phosphatase 92 U/L (45-117); Anion Gap 7 (5-15); BUN 22 mg/dL (7-18); BUN/Creat Ratio 16.9 RATIO (10-20); Calcium,Total 9.7 mg/dL (8.5-10.1); Chloride 99 mmol/L (98-107); EST Glomerular Filtration Rate 42 mL/min (>60); Est Glom Filt Rate - Afr Amer 50 mL/min (>60); Globulin 3.7 g/dL (2.2-4.2); Glucose 233 mg/dL (74-106); Lipase 60 U/L (13-75); Potassium 3.7 mmol/L (3.5-5.1); Protein, Total 7.2 g/dL (6.4-8.2); Sodium Level 136 mmol/L (136-145)
[2023-08-04] MEDS: 0.9% Normal Saline (500mL Bag) 500 ML 999 ML IV (21:50)
[2023-08-04 22:54] LABS: Bacteria 0 SEEN /hpf (None Seen); Mucous, Urine 0 SEEN /hpf (<or=2+); Red Blood Cells-Urine 0 SEEN /hpf (0-5)
[2023-08-04 22:55] LABS: Color, Urine Yellow (Yellow); Glucose, Dipstick 1000 mg/dl (Normal); Ketone-Dipstick Negative (Negative); Leukocyte Esterase-Dipstick Negative /ul (Negative); Nitrite-Dipstick Negative (Negative); Occult Blood-Urine Negative /ul (Negative); Protein-Dipstick 15 mg/dl (Negative); Urine Bilirubin Dipstick Negative (Negative); Urine Clarity Clear (Clear); Urine Urobilinogen Normal (Normal)
[2023-08-04 23:09] LABS: Squamous Epithelial Cells - UA 0-5 SEEN /hpf (5-10); White Blood Cells 0-5 SEEN /hpf (0-5)
--- NOTE | 2023-08-04 23:31 | PCM.HP.STD ---
[facility] - General General Date of Admission: 08/05/23 Date of Service: 08/04/23 Chief Complaint: Fall and Constipation. [facility] Narrative DILCIA HENRY, is a 83 F with a past medical history of essential hypertension, hyperlipidemia, diabetes mellitus type 2; of unknown control, peripheral neuropathy, history of dementia, history of BPPV; on prn meclizine, depression, history of aortic stenosis, overactive bladder, chronic constipation, osteoarthritis; of the left hip and chronic back pain with sciatica; s/p L3-L4 laminectomy and history of GI bleed followed by Dr. Rich of gastroenterology who presents to [facility] ER complaining of fall and constipation. Ms. Henry reports her symptoms began approximately 4 hours prior to to arrival with the abrupt onset of abdominal pain that was focused in her lower abdomen, sharp, intermittent and knifelike followed by severe nausea with 3-4 episodes of bilious emesis. She states she normally has one BM daily and her last normal BM was yesterday so she is concerned for constipation. Her previous abdominal surgeries include cholecystectomy, hysterectomy and two C-sections. She also admits to a mechanical fall at her [facility] when she fell onto her bottom with subsequent increased lower back pain since that time as she typically ambulates with a cane. She denies associated fever, chills, nausea, vomiting, hematemesis or dysuria. In the ER she was noted to have a CT scan of the abdomen and pelvis positive for evidence of Severe Distal Proctitis vs. Rectal Lesion/Neoplasm in addition to constipation complicated by Fracture of S3 vertebral body and possible S2 with Fracture of the posterior elements/spinous processes after a recent Mechanical Fall and she was then admitted to the general medical floor under observation status for ongoing care for a stay that is expected to be less than 48 hours. [facility] Medical History Ambulates with cane Arthritis Back pain Cancer Carpal tunnel syndrome Depression Diabetes Dietary restriction Essential hypertension Fecal incontinence Forgetfulness GI bleeding High cholesterol History of hiatal hernia History of pain when walking History of stress test Hx of cataract Hypertension Injury of back Irregular heart beat Kidney stone on left side Liver lesion, right lobe Migraine headache Multiple lung nodules Nausea Normal stress echocardiogram Open wound Pancreatitis Peripheral neuropathy Type II diabetes mellitus Wears glasses Home Medications atorvastatin 40 mg tablet 40 mg PO QHS cholestrol 02/14/14 [History Last Taken 10 Days Ago ~04/22/21] tolterodine 2 mg capsule,extended release 24 hr (Detrol LA) 2 mg PO QHS overactive bladder 02/14/14 [History Last Taken 05/01/21] valsartan 320 mg tablet 320 mg PO DAILY Cholesterol 04/10/21 [History Last Taken 07/05/21 06:30] amlodipine 10 mg tablet 10 mg PO DAILY bp 05/02/21 [History Last Taken 03/26/22 05:00] bupropion HCl 150 mg 24 hr tablet, extended release 150 mg PO DAILY mood 05/02/21 [History Last Taken 03/26/22 05:00] fluoxetine 40 mg capsule 40 mg PO DAILY depression 05/02/21 [History Last Taken 03/26/22 05:00] hydrochlorothiazide 12.5 mg capsule 12.5 mg PO DAILY bp/fluid 05/02/21 [History Last Taken 10 Days Ago ~04/22/21] metformin 1,000 mg tablet 1,000 mg PO BID dm 05/02/21 [History Last Taken 05/01/21] calcium carbonate 600 mg-vitamin D3 5 mcg (200 unit) tablet 1 tab PO DAILY Supplement 03/21/22 [History Last Taken Unknown] clobetasol 0.05 % topical ointment 1 applic topical BID PRN rash 01/25/23 [History Last Taken Unknown] hyoscyamine sulfate 0.125 mg sublingual tablet 0.125 mg sublingual Q4H PRN dyspepsia 01/25/23 [History Last Taken Unknown] linagliptin 5 mg tablet 5 mg PO DAILY 01/25/23 [History Last Taken Unknown] meclizine 12.5 mg tablet 12.5 mg PO Q6H PRN dizziness 01/25/23 [History Last Taken Unknown] nystatin 100,000 unit/gram topical powder 1 applic topical BID PRN rash 02/13/23 [History Last Taken Unknown] ondansetron 4 mg disintegrating tablet 4 mg PO Q6H PRN nausea and vomiting 02/13/23 [History Last Taken Unknown] aspirin 81 mg chewable tablet 162 mg (2 x 81 mg) PO DAILYCM #30 tabs 06/21/23 [Rx Last Taken Unknown] acetaminophen 325 mg capsule (Tylenol) 650 mg PO Q4H PRN fever or pain 08/04/23 [History Last Taken Unknown] loperamide 2 mg capsule (Anti-Diarrheal (loperamide)) 2 mg PO Q6H PRN loose stool 08/04/23 [History Last Taken Unknown] magnesium hydroxide 400 mg/5 mL oral suspension (Milk of Magnesia) 30 ml PO DAILY PRN constipation 08/04/23 [History Last Taken Unknown] sennosides 8.6 mg-docusate sodium 50 mg capsule (Senna Plus) 1 tab-cap PO DAILY PRN constipation 08/04/23 [History Last Taken Unknown] glimepiride 1 mg tablet 1 mg PO DAILY 08/05/23 [History Last Taken Unknown] Allergy/AdvReac Type Severity Reaction Status Date / Time acetaminophen [From Vicodin] Allergy Severe Anaphylaxis Verified 06/20/23 16:39 duloxetine Allergy Severe Hallucinati Verified 06/20/23 16:39 ons hydrocodone [From Vicodin] Allergy Severe Anaphylaxis Verified 06/20/23 16:39 levofloxacin [From Levaquin] Allergy Unknown Hallucinations, Verified 06/20/23 16:39 joint pain oxaprozin Allergy Unknown Unknown Verified 06/20/23 16:39 prednisone Allergy Unknown Unknown Verified 06/20/23 16:39 codeine Allergy Anaphylaxis Verified 06/20/23 16:39 crab Allergy Swollen Verified 06/20/23 16:39 lymph glands hydrocodone bitartrate AdvReac Vomiting Verified 06/20/23 16:39 [From Vicodin] zolpidem tartrate AdvReac Other Verified 06/20/23 16:39 [From Ambien] Family History Grandmother Parkinson disease Father Hypertension CVA (cerebral vascular accident) Diabetes Myocardial infarction Brother Sarcoid Surgical History H/O: hysterectomy History of 2 sections History of back surgery History of cataract extraction History of cholecystectomy Hx of cystoscopy Hx of detached retina repair Hx of total knee replacement S/P laminectomy Social History household members: none Smoking Status: Former smoker quit date: 01/30/71 how long ago did patient quit smokin alcohol intake: never substance use type: does not use caffeine: No ROS ROS Narrative Review of systems: General: Patient denies fevers or chills. HENT: Denies headache, denies stuffy nose, denies sore throat EYES: Denies changes in vision Resp: Denies cough, denies shortness of breath Cardiac: Denies chest pain or palpitations. GI: Patient admits to abdominal pain as noted in HPI followed by nausea with 3-4 episodes of bilious emesis. : Denies changes in urination Extremity: Denies swelling Musculoskeletal: Patient admits to increased back pain since her fall that is worse with activity but not completely relieved by rest. Neuro: Denies any numbness/tingling Heme: Denies any bleeding or bruising Skin: Denies rashes Psychiatric: No complaints voiced related to uncontrolled depression or anxiety. Endocrine: No polyuria, polydipsia or polyphagia. The rest of the 14 point ROS was negative except for positives in HPI. Vital Signs Vital Signs Vital Signs: 08/04/23 19:42 Temperature 97.5 F L Temperature Source Temporal Pulse Rate 81 Respiratory Rate 16 Blood Pressure 129/65 H Blood Pressure Mean 86 Pulse Ox 99 Oxygen Delivery Method Room Air Weight Weight: 132 lb 1.6 oz Body Mass Index (BMI) 23.3 Physical Exam Const alert, oriented x3, no apparent distress and average body habitus General Appearance: cooperative HEENT normocephalic, head/scalp atraumatic, hearing grossly normal bilaterally and moist oral mucous membranes Eyes PERRL and EOMs intact bilaterally Neck no lymphadenopathy and supple Resp normal respiratory effort, no retractions, no use of accessory muscles and clear to auscultation bilaterally Cardio regular rate and regular rhythm GI soft to palpation GI Narrative: Generalized lower abdominal tenderness to palpation with no guarding or peritoneal signs. Extremity normal to inspection Skin Skin Narrative: Patient has no evidence of rash at this time. Neuro oriented x3, CN's II-XII intact bilaterally, moves all extremities and no focal motor deficits Sensorium / Orientation: awake, alert, oriented to person and oriented to place Speech: speech normal Motor Exam: strength 5/5 throughout Psych affect normal Results Medical Records Data Attestation: I reviewed the patient's medical records Lab / Micro Data Attestation: I reviewed the patient's lab results. 08/05/23 05:52 08/04/23 20:25 Labs: Laboratory Results - last 24 hr 08/04/23 20:25: WBC 13.9 H, RBC 5.02, Hgb 12.9, Hct 40.9, MCV 81.5, MCH 25.7 L, MCHC 31.5 L, RDW Std Deviation 45.8 H, RDW Coeff of Finesse 15.4 H, Plt Count 193, MPV 11.6, Immature Gran % (Auto) 0.500, Neut % (Auto) 78.5 H, Lymph % (Auto) 13.1 L, Nicholas % (Auto) 6.4, Eos % (Auto) 1.4, Baso % (Auto) 0.1, Absolute Neuts (auto) 10.9 H, Absolute Lymphs (auto) 1.81, Nucleated RBC % 0, Sodium 136, Potassium 3.7, Chloride 99, Carbon Dioxide 30.0, Anion Gap 7, BUN 22 H, Creatinine 1.30 H, Estim Creat Clear Calc 27.60, Est GFR (MDRD) Af Amer 50 L, Est GFR (MDRD) Non-Af 42 L, BUN/Creatinine Ratio 16.9, Glucose 233 H, Calcium 9.7, Total Bilirubin 0.90, AST 18, ALT 22, Alkaline Phosphatase 92, Total Protein 7.2, Albumin 3.5, Globulin 3.7, Albumin/Globulin Ratio 0.9, Lipase 60 08/04/23 22:45: Urine Color Yellow, Urine Clarity Clear, Urine pH 8.0, Ur Specific [place] 1.010, Urine Protein 15 H, Urine Glucose (UA) 1000 H, Urine Ketones Negative, Urine Occult Blood Negative, Urine Nitrite Negative, Urine Bilirubin Negative, Urine Urobilinogen Normal, Ur Leukocyte Esterase Negative, Urine RBC 0 SEEN, Urine WBC 0-5 SEEN, Ur Squamous Epith Cells 0-5 SEEN, Urine Bacteria 0 SEEN, Urine Mucus 0 SEEN Imagaing Radiology Impression Abdomen/Pelvis CT 08/04/23 20:12 IMPRESSION: Constipation. Question severe distal proctitis versus rectal lesion/neoplasm not excluded. Correlation with physical exam recommended. Stable hypoattenuated linear density most compatible with benign process. Status post cholecystectomy. Mild hiatal hernia. Question minimal right hydronephrosis and hydroureter with etiology indeterminate. A distal stricture, lesion along the ureter or urinary bladder cannot be excluded, versus recently passed stone. Clinical correlation recommended. Electronically Signed: Ammy Mischiu, MD at 22:12 EST , Lumbar Spine CT 08/04/23 20:25 IMPRESSION: Fracture of S3 vertebral body and possible S2 with fracture of the S2 posterior elements/spinous process. 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 No acute fracture or subluxation of the lumbar spine. Electronically Signed: Ammy Hamm MD at 22:02 EST , Assessment & Plan Assessment/Plan (1) Proctitis: (2) Sacral fracture: QUALIFIERS: Encounter type: initial encounter Zone of sacrum fracture: unspecified portion of sacrum Fracture type: closed Qualified Code(s): S32.10XA - Unspecified fracture of sacrum, initial encounter for closed fracture (3) Constipation: QUALIFIERS: Constipation type: unspecified constipation type Qualified Code(s): K59.00 - Constipation, unspecified PLAN: Plan 1. CT evidence of Severe Distal Proctitis vs. Rectal Lesion/Neoplasm - Admit to general medical floor under observation status. Start empiric IV Zosyn to treat alleged proctitis and monitor for improvement. Give Zofran IV prn nausea. Finally, we will consult Dr. Rich of GI to see this patient on-rounds in the AM for further recommendations with help appreciated in advance. 2. Fracture of S3 vertebral body & possible S2 with Fracture of the posterior elements/spinous processes after a recent Mechanical Fall complicating #1 in the setting of osteoarthritis; of the left hip and chronic back pain with sciatica; s/p L3-L4 laminectomy - PT/OT to consult and treat. Patient has listed anaphylactic allergy to Tylenol so this agent should be avoided. 3. Pyenr-be-hoindcf constipation exacerbated by #1 & #2 with associated abdominal pain, nausea and vomiting - Give Lactulose 30 cc po once along with MiraLAX 17 g daily. 4. History of GI bleed followed by Dr. Friend of gastroenterology - Noted. 5. History of dementia; mild - Stable. 6. Essential hypertension - Continue home regimen plus give prn IV Hydralazine for systolic blood pressure > 160 mm Hg. 7. Hyperlipidemia - Resume statin as previous. 8. Diabetes mellitus type 2; of unknown control - NPO for now with potential colonoscopy. FSBS q. 6 hours plus lowest intensity SSI. 9. Peripheral neuropathy - Noted. 10. History of BPPV; on prn meclizine - Continue prn meclizine. 11. Depression - Resume home medications. 12. History of aortic stenosis - Noted. 13. Overactive bladder - Stable. 14. DVT prophylaxis - SCD's only with possible pending GI procedure. Total time: Approximately 70 minutes. Charges/Coding Visit Charges OBSV E&M: [id number] Observ/hosp same date L2
[2023-08-05 00:35] VITALS: BP 136/62; PULSE 69; RESP 18; TEMP 37.1; O2SAT 94
--- OUTSIDE RECORDS SUMMARY | 2023-08-05 02:18 | XMS RPT_ITS | CCD ---
Author Name Unknown Address [address] [place] [address] Organization [facility] Care Team Providers Care Chain Puller Name Role Phone Kathie Julian MD Primary [...] Translations: [HYDROCODONE-ACETA MINOPHEN] Drug Allergy 7 Anaphylaxis [facility] Work Phone: (20 sources) Codeine; Translations: [CODEINE] Drug Allergy 4 Anaphylaxis [facility] Work Phone: (20 sources) crab allergenic extract; Translations: [CRAB] Drug Allergy 6 Unknown [facility] (20 sources) DULoxetine; Translations: [DULOXETINE] Drug Allergy 4 Other: See Comments [facility] (20 sources) levoFLOXacin; Translations: [LEVOFLOXACIN] Drug Allergy 0 Intolerance [facility] Work Phone: (20 sources) oxaprozin; Translations: [OXAPROZIN] Drug Allergy 5 [facility] Work Phone: (20 sources) predniSONE; Translations: [PREDNISONE] Drug Allergy 5 Other: See Comments [facility] Work Phone: (20 sources) zolpidem; Translations: [ZOLPIDEM TARTRATE] Drug Allergy 4 Mental Status Change [facility] Work Phone: Medications Current Medications Medication Drug [...] 162.6 cm Kathie Julian MD Work Phone: [facility] 06-14-2023 15:38-0500 Body weight 64.32 kg Kathie Julian MD Work Phone: [facility] 06-14-2023 15:38-0500 Diastolic blood pressure 70 mm[Hg] Kathie Julian MD Work Phone: [facility] 06-14-2023 15:38-0500 Heart rate 67 /min Kathie Julian MD Work Phone: [facility] 06-14-2023 15:38-0500 SaO2% (BldA) [Mass fraction] 97 % Kathie Julian MD Work Phone: [facility] 06-14-2023 15:38-0500 Systolic blood pressure 146 mm[Hg] Kathie Julian MD Work Phone: [facility] 02-19-2023 15:30-0400 Diastolic blood pressure 70 mm[Hg] Jeana Mendoza ROOM SERVER.DISPENSARY TECHNICIAN Work Phone: [facility] 02-19-2023 15:30-0400 Heart rate 60 /min Jeana Mendoza ROOM SERVER.DISPENSARY TECHNICIAN Work Phone: [facility] 02-19-2023 15:30-0400 Respiratory rate 16 /min Jeana Mendoza ROOM SERVER.DISPENSARY TECHNICIAN Work Phone: [facility] 02-19-2023 15:30-0400 SaO2% (BldA) [Mass fraction] 98 % Jeana Mendoza ROOM SERVER.DISPENSARY TECHNICIAN Work Phone: [facility] 02-19-2023 15:30-0400 Systolic blood pressure 130 mm[Hg] Jeana Mendoza APRN.CNP Work Phone: [facility] 12-13-2022 15:28-0400 Body height 162.6 cm Kathie Julian MD Work Phone: [facility] 12-13-2022 15:28-0400 Body weight 62.41 kg Kathie Julian MD Work Phone: [facility] 12-13-2022 15:28-0400 Diastolic blood pressure 54 mm[Hg] Kathie Julian MD Work Phone: [facility] 12-13-2022 15:28-0400 Heart rate 69 /min Kathie Julian MD Work Phone: [facility] 12-13-2022 15:28-0400 SaO2% (BldA) [Mass fraction] 96 % Kathie Julian MD Work Phone: [facility] 12-13-2022 15:28-0400 Systolic blood pressure 118 mm[Hg] Kathie Julian MD Work Phone: [facility] 07-12-2022 11:08-0500 Body weight 60.6 kg Kathie Julian MD Work Phone: [facility] 07-12-2022 11:08-0500 Diastolic blood pressure 66 mm[Hg] Kathie Julian MD Work Phone: [facility] 07-12-2022 11:08-0500 Heart rate 66 /min Kathie Julian MD Work Phone: [facility] 07-12-2022 11:08-0500 Respiratory rate 20 /min Kathie Julian MD Work Phone: [facility] 07-12-2022 11:08-0500 SaO2% (BldA) [Mass fraction] 97 % Kathie Julian MD Work Phone: [facility] 07-12-2022 11:08-0500 Systolic blood pressure 144 mm[Hg] Kathie Julian MD Work Phone: [facility] 02-16-2022 10:15-0400 Body weight 59.88 kg Jeana Haagen ROOM SERVER.DISPENSARY TECHNICIAN Work Phone: [facility] 02-16-2022 10:15-0400 Diastolic blood pressure 66 mm[Hg] Jeana Haagen ROOM SERVER.DISPENSARY TECHNICIAN Work Phone: [facility] 02-16-2022 10:15-0400 Heart rate 58 /min Jeana Haagen ROOM SERVER.DISPENSARY TECHNICIAN Work Phone: [facility] 02-16-2022 10:15-0400 Respiratory rate 14 /min Jeana Haagen ROOM SERVER.DISPENSARY TECHNICIAN Work Phone: [facility] 02-16-2022 10:15-0400 SaO2% (BldA) [Mass fraction] 97 % Jeana Haagen ROOM SERVER.DISPENSARY TECHNICIAN Work Phone: [facility] 02-16-2022 10:15-0400 Systolic blood pressure 128 mm[Hg] Jeana Haagen ROOM SERVER.DISPENSARY TECHNICIAN Work Phone: [facility] 01-18-2022 11:34-0400 Body weight 61.69 kg Kathie Julian MD Work Phone: [facility] 01-18-2022 11:34-0400 Diastolic blood pressure 62 mm[Hg] Kathie Julian MD Work Phone: [facility] 01-18-2022 11:34-0400 Heart rate 60 /min Kathie Julian MD Work Phone: [facility] 01-18-2022 11:34-0400 Systolic blood pressure 132 mm[Hg] Kathie Julian MD Work Phone: [facility] 01-10-2022 11:21-0400 Diastolic blood pressure 62 mm[Hg] Kathie Julian MD Work Phone: [facility] 01-10-2022 11:21-0400 Systolic blood pressure 128 mm[Hg] Kathie Julian MD Work Phone: [facility] 01-10-2022 10:59-0400 Body weight 60.33 kg Kathie Julian MD Work Phone: [facility] 01-10-2022 10:59-0400 Heart rate 60 /min Kathie Julian MD Work Phone: [facility] 01-10-2022 10:59-0400 Respiratory rate 16 /min Kathie Julian MD Work Phone: [facility] 01-05-2022 13:32-0400 Body weight 60.33 kg Arpita Podlogar ROOM SERVER.DISPENSARY TECHNICIAN Work Phone: [facility] 01-05-2022 13:32-0400 Diastolic blood pressure 58 mm[Hg] Arpita Podlogar ROOM SERVER.DISPENSARY TECHNICIAN Work Phone: [facility] 01-05-2022 13:32-0400 Heart rate 69 /min Arpita Podlogar ROOM SERVER.DISPENSARY TECHNICIAN Work Phone: [facility] 01-05-2022 13:32-0400 Respiratory rate 18 /min Arpita Podlogar ROOM SERVER.DISPENSARY TECHNICIAN Work Phone: [facility] 01-05-2022 13:32-0400 SaO2% (BldA) [Mass fraction] 98 % Arpita Podlogar ROOM SERVER.DISPENSARY TECHNICIAN Work Phone: [facility] 01-05-2022 13:32-0400 Systolic blood pressure 112 mm[Hg] Arpita Podlogar ROOM SERVER.DISPENSARY TECHNICIAN Work Phone: [facility] 12-09-2021 09:00-0400 Body temperature 97.39 [degF] Jessica Athy PA-C Work Phone: [facility] 12-09-2021 09:00-0400 Body weight 61.87 kg Jessica Athy PA-C Work Phone: [facility] 12-09-2021 09:00-0400 Diastolic blood pressure 66 mm[Hg] Jessica Athy PA-C Work Phone: [facility] 12-09-2021 09:00-0400 Heart rate 75 /min Jessica Athy PA-C Work Phone: [facility] 12-09-2021 09:00-0400 Respiratory rate 20 /min Jessicabrittany Estevezmarianne PA-C Work Phone: [facility] 12-09-2021 09:00-0400 SaO2% (BldA) [Mass fraction] 97 % Jessicabrittany Estevezy PA-C Work Phone: [facility] 12-09-2021 09:00-0400 Systolic blood pressure 138 mm[Hg] Jessicabrittany Estevezy PA-C Work Phone: [facility] 11-08-2021 15:22-0400 Body weight 63.01 kg Jeana Haagen ROOM SERVER.DISPENSARY TECHNICIAN Work Phone: [facility] 11-08-2021 15:22-0400 Diastolic blood pressure 62 mm[Hg] Jeana Haagen ROOM SERVER.DISPENSARY TECHNICIAN Work Phone: [facility] 11-08-2021 15:22-0400 Heart rate 80 /min Jeana Haagen ROOM SERVER.DISPENSARY TECHNICIAN Work Phone: [facility] 11-08-2021 15:22-0400 Respiratory rate 16 /min Jeana Haagen ROOM SERVER.DISPENSARY TECHNICIAN Work Phone: [facility] 11-08-2021 15:22-0400 SaO2% (BldA) [Mass fraction] 98 % Jeana Haagen ROOM SERVER.DISPENSARY TECHNICIAN Work Phone: [facility] 11-08-2021 15:22-0400 Systolic blood pressure 134 mm[Hg] Jeana Haagen ROOM SERVER.DISPENSARY TECHNICIAN Work Phone: [facility] Encounters Encounter Date Encounter Type Care Provider Facility Start: 06-24-2023 Telephone encounter Kathie Julian MD Work Phone: [facility] Procedures Date Procedure Procedure Detail Performing Clinician Start: 01-31-2023 Us retroperitoneal r eal time w/image complete Kathie Julian MD Work Phone: Start: 12-24-2019 Adult depression scr eening assessment Khadijah Durandione SENIOR LEAD JAVA DEVELOPER Start: 12-17-2018 Electrocardiogram Plan of Treatment Date Care Activity Detail Author Start: 10-18-2024 Urine microalbumin profile [facility] Start: 06-14-2024 3 comp foot exam completed Diabetic Foot Exam [facility] Start: 06-14-2024 Diabetic foot examination Diabetic F oot Exam [facility] Start: 12-22-2023 Glaucoma screening Dilated Retinal E xam [facility] Start: 12-22-2023 Hepatitis C antibody , confirmatory test DILATED RETINAL EXAM [facility] Start: 12-14-2023 COVID-19 VACCINE (3 - Booster for Moderna series) COVID-19 VACCINE (3 - Booster for Moderna series) [facility] Immunizations Immunization Date Immunization Notes Care Provider Lisbet frausto 05-03-2021 influenza, seasonal, injectable, preservative free Kathie Julian MD Work Phone: [facility] 05-03-2021 influenza virus vacc ine, unspecified formulation Us Work Phone: [facility] 09-09-2020 COVID-19 vaccine, fu ll dose (MODERNA) Khadijah Schlechty [facility] 08-12-2020 COVID-19 vaccine, fu ll dose (MODERNA) Khadijah Schlechty [facility] 04-09-2020 influenza, high-dose , quadrivalent vaccine (FLUZONE HIGH DOSE QUADRIVALENT) Khadijah Schlecy [facility] Work Phone: 04-21-2019 influenza, high dose seasonal, preservative-free Khadijah Schlechty [facility] Work Phone: 04-28-2018 influenza, high dose seasonal, preservative-free Khadijah Schlechty [facility] 04-15-2017 influenza, high dose seasonal, preservative-free Khadijah Schlechty [facility] 05-08-2016 influenza, high dose seasonal, preservative-free Khadijah Schlechty [facility] Work Phone: 05-05-2015 influenza, high dose seasonal, preservative-free Khadijah Schlechty [facility] 01-05-2015 pneumococcal conjuga te vaccine, 13 valent [address]ij[address] [facility] 10-18-2014 tetanus toxoid, redu brie diphtheria toxoid, and acellular pertussis vaccine, adsorbed Khadijah Schlechty SENIOR LEAD JAVA DEVELOPER [facility] 04-21-2014 influenza, seasonal, injectable [facility] 02-17-2014 pneumococcal polysaccharide vaccine, 23 valent [facility] Work Phone: 05-23-2013 influenza virus vacc ine, unspecified formulation [facility] 04-19-2012 influenza virus vacc ine, unspecified formulation [facility] 07-15-2011 TD(adult) unspecifie d formulation Kathie Julian MD Work Phone: [facility] 06-20-2011 tetanus and diphther ia toxoids, adsorbed, preservative free, for adult use (2 Lf of tetanus toxoid and 2 Lf of diphtheria toxoid) [facility] 05-26-2011 influenza virus vacc ine, unspecified formulation [facility] Work Phone: 04-29-2010 influenza virus vacc ine, unspecified formulation [facility] Work Phone: 05-19-2009 zoster vaccine, live [facility] 04-16-2009 influenza virus vacc ine, unspecified formulation [facility] Work Phone: 05-20-2008 influenza virus vacc ine, unspecified formulation [facility] 07-25-2007 influenza virus vacc ine, unspecified formulation [facility] Work Phone: 06-11-2006 influenza virus vacc ine, unspecified formulation [facility] Work Phone: 04-30-2003 pneumococcal polysaccharide vaccine, 23 valent Jessica Rivera PA-C Work Phone: [facility] Work Phone: Payers Date Payer Category Payer Medicare [id number] 2020 Unknown MMO MMO MEDICARE SUPPLEMENT [id number] 2020-Present [phone] [address] [place] [address] Indemnity [id number] 2020 Unknown MMO MMO MEDICARE SUPPLEMENT [id number] 2020-Present [phone] [address] [place] [address] Indemnity [id number] 2013 Medicare MEDICARE MEDICAR E A AND B [id number] 2013-Present [phone] [address] [address] [place] [address] Medicare [id number] 2013 Medicare MEDICARE MEDICAR E A AND B [id number] 2013-Present [phone] [place] [address] Medicare [id number] 2013 Medicare [id number] Social History Date Type Detail Facility Start: 06-24-2014 End: 03-22-2022 Tobacco smoking status NHIS Ex-smoker [facility] Start: [birth year]-14-1959 End: 01-30-1971 History of tobacco use Current smoker [facility] Start: 06-14-1959 End: 01-30-1971 History of tobacco use Cigarette Smoker [facility] Start: 10-04-2021 End: 06-14-2023 Alcohol intake Current non-drinker of alcohol (finding) [facility] Start: 1940 Sex Assigned At Not on file [facility] Start: 09-24-2021 End: 03-22-2022 Exposure to SARS-CoV-2 (event) Not sure [facility] Start: 06-24-2014 End: 12-13-2022 Cigarettes smoked current (pack per day) - Reported 0.3 [facility] Work Phone: Start: 06-24-2014 End: 03-22-2022 Tobacco use and exposure Smokeless tobacco non-user [facility] Work Phone: Start: 03-22-2022 Tobacco Comment Parents smoked in childhood home. Spouse non-smoker. [facility] Start: 12-24-2019 End: 12-13-2022 Tobacco use panel [facility] Work Phone: Adult Depression Screening Assessment 6 [facility] Work Phone: Medical Equipment Procedure Code Equipment Code Equipment Origin al Text Equipment Identifier Dates Cement Simplex B one High Viscosity - [id number] Start: 07-10-2017 Insert Triathlon 3 X3 11mm Tibial Posterior Stabilized Primary Knee - [id number] Start: 07-10-2017 Component Triath bere 3 Femoral Cemented Posterior Stabilize Knee Right - [id number] Start: 07-10-2017 Component Triath bere 32mm Asymmetric X3 10mm Patellar Knee - [id number] Start: 07-10-2017 Baseplate Triath bere 3 Tibial Primary Cement Knee - [id number] Start: 07-10-2017 Start: 11-25-2018 End: 07-12-2022 [...] question. Amara states patient is only at [facility] for respite care until they can find a place for patient. Reports patient is not admitted there, and they are not doing a thing for patient. Reports they are trying to get patient into [facility], and [facility] will see patient tomorrow, to do an assessment, to see if she is a good candidate for [facility]. Daughter asking if pcp can order the sed rate, for patient to come to lab to have blood draw, since she is only at [facility] for respite care? Please advise daughterAmara. Is she doing rehab at [facility]. If we are not managing. I [...] dentist. Pt stated there was a birthday green party at the dentist that she was going to. Pt was redirected back home by a neighbor. Pt also voiced to dtr that she had fallen twice that day () and had a headache and was vomiting. Due to pt's abrupt memory change as well as other sx's, dtr took pt to [facility] ER. Pt was admitted and is still there this morning. Pt believes it is the year 1988. Dtr states a complete stroke work up was completed and nothing was found . The plan is for pt to be discharged from [facility] today and pt will go to [facility] memory care unit under respite care for now until a further plan is determined. Daughter states [facility] has discontinued pt's gabapaentin, which has been [...] Ginny Zacarias RN documented in this encounter [facility] 06-14-2023 Note HNO ID: [id number] Author: Kathie Julian MD Service: ? Author [...] and abnormal moveme (more content not included)... [facility] 06-14-2023 History of Present illness Narrative [...] Father at 71 of diabetes Heart Father PA Arthritis Maternal Grandmother other (Other) Maternal Grandmother [...] in six months. documented in this encounter [facility] 06-05-2023 Miscellaneous Notes Patient has been identified [...] Graciela Tello LPN. documented in this encounter [facility] 05-23-2023 Miscellaneous Notes The following approved medication requests have been transmitted electronically. Requested Prescriptions Signed Prescriptions Disp Refills meloxicam (MOBIC) 15 mg tablet 30 tablet 5 Sig: Take 1 tablet by mouth once daily. With food. Authorizing Provider: EJ SMITH MD Shanel Felton is calling Kathie Julian MD today requesting an prescription meloxicam (MOBIC) 15 mg tablet Please send to [facility]/ Alex documented in this encounter [facility] 05-22-2023 Miscellaneous Notes Patient has been identified [...] patient. Lucrecia Henry documented in this encounter [facility] 03-07-2023 Miscellaneous Notes Medication refill requested by pharmacy. Requested Prescriptions Pending Prescriptions Disp Refills metFORMIN (GLUCOPHAGE) 1,000 mg tablet 180 tablet 1 Sig: Take 1 tablet by mouth twice daily with meals. Last encounter with this provider: 02/19/2023 Next appt: 06/14/2023 Ginny Zacarias RN documented in this encounter [facility] 02-19-2023 Note HNO ID: [id number] Author: Jeana Mendoza APRN.DISPENSARY TECHNICIAN Service: ? Author Type: Nurse Practitioner Type: Progress Notes Filed: 02/19/2023 5:28 PM Note Text: This is a 82 year old female who presents today with: Patient presents with: ER F/U: [facility] ER 02/18/23 dx: abd pain HISTORY OF PRESENT ILLNESS: Shanel Felton is a 82 year old female. Patient presents with: ER F/U: [facility] ER 02/18/23 dx: abd pain Pt presents [...] questionable evidence of a atrial mass. A dihzz-oc-lhdq ultrasound was obtained and revealed no evidence of obvious intra atrial mass. [place] that the imaging was likely showing artifact. [...] 1 mg tablet (more content not included)... [facility] 02-19-2023 Instructions Jeana Mendoza APRN.CNP - 02/19/2023 3:57 PM EDT Take the levsin as needed. Let us know if you get any further episode. documented in this encounter [facility] 02-19-2023 History of Present illness Narrative This is a 82 year old female who presents today with: Patient presents with: ER F/U: [facility] ER 02/18/23 dx: abd pain HISTORY OF PRESENT ILLNESS: Shanel Felton is a 82 year old female. Patient presents with: ER F/U: [facility] ER 02/18/23 dx: abd pain Pt presents [...] questionable evidence of a atrial mass. A zwdck-db-gaix ultrasound was obtained and revealed no evidence of obvious intra atrial mass. [place] that the imaging was likely showing artifact. [...] Father at 71 of diabetes Heart Father PA Arthritis Maternal Grandmother other (Other) Maternal Grandmother [...] Esophageal spasm - ICD9: 530.5, ICD10: K22.4 [place] symptoms related to esophageal spasm. Improved today. Has prn levsyn. She is aware to notify provider of any new/recurrent/worsening symptoms. Discussed treatment plan and patient voices understanding. Patient's questions answered appropriately. Medications and potential side effects were discussed and patient voices understanding. Return to the office as scheduled or as needed for worsening/no improvement. Jeana Mendoza APRN.DISPENSARY TECHNICIAN documented in this encounter [facility] 02-18-2023 Miscellaneous Notes Pt's daughter Amara calling [...] Jessica Persaud RN documented in this encounter [facility] 02-11-2023 Miscellaneous Notes Amara calls to request results of US Kidney/bladder. Reviewed Negative results. Amara verbalizes understanding. Jaylin Camacho RN documented in this encounter [facility] 01-31-2023 Note HNO ID: [id number] Author: Anamaria Giron RDMS Service: ? Author Type: Knockdown Man Type: Progress Notes Filed: 01/31/2023 10:30 AM [...] Giron RDMS January 31, 2023 10:[address] [facility] 01-31-2023 History of Present illness Narrative [...] 2023 10:30 AM documented in this encounter [facility] 12-14-2022 Miscellaneous Notes Patient notified. Ginny Zacarias RN Labs are stable except kidney function is down a little. Can be due to hydration. Push fluids. Recheck bmp in two weeks. documented in this encounter [facility] 12-13-2022 Note HNO ID: [id number] Author: Kathie Julian MD Service: ? Author [...] as needed. Blood-Glucose Meter (ACCU-CHEK GUILLERMINA MONITORING) [facility] Kit USE DIRECTED No current facility-administered medications [...] SURGICAL HISTORY Pro (more content not included)... [facility] 12-13-2022 History of Present illness Narrative [...] as needed. Blood-Glucose Meter (ACCU-CHEK GUILLERMINA MONITORING) [facility] Kit USE DIRECTED No current facility-administered medications [...] Father at 71 of diabetes Heart Father PA Arthritis Maternal Grandmother other (Other) Maternal Grandmother [...] months and prn. documented in this encounter [facility] 10-18-2022 Miscellaneous Notes Patient was notified Honey [...] Sw know that patient received message from [employer] that she was over income for help with Januvia assistance. Sw reviewed income that patient reported last year and now this year. There was a change in income and patient daughter notes that patient has a pension that she does not always remember that she has at times. So now, this has placed patient over income for assistance. documented in this encounter [facility] 10-12-2022 Miscellaneous Notes Patient said she didn't [...] Taylor Marin Pss documented in this encounter [facility] 10-09-2022 Miscellaneous Notes Patient phones requesting refills as follows: Requested Prescriptions Pending Prescriptions Disp Refills hydroCHLOROthiazide 12.5 mg capsule 30 capsule 12 Sig: Take 1 capsule by mouth once daily. omeprazole (PRILOSEC) 20 mg capsule 30 capsule 5 Sig: Take 1 capsule by mouth daily before breakfast. 1/2 hr before meal. MARLENA 07/12/22 NOV 12/13/22 Please review and advise. Cayden Patterson LPN documented in this encounter [facility] 10-03-2022 Miscellaneous Notes Application mailed to [email or web address]. Copy sent to scanning. done Application on [...] forms to . documented in this encounter [facility] 09-21-2022 Miscellaneous Notes Faxing as requested. Sw checked with [facility] regarding [facility] Fax. The rep said that the fax number is [phone]. Sw will send to OSITO Cruz to see about refaxing patient Januvia prescription. documented in this encounter [facility] 09-19-2022 Miscellaneous Notes Script faxed as requested. Printed. Patient called Sw regarding refill through [facility] PAP. Patient notes that she called [facility] and they need a new prescription for Januvia refill to be processed. Sw notes that she will check with [facility] to see where prescription needs to be sent and about yearly application. [facility] needs new Januvia prescription faxed to them. Patient is able then to have refill on current PAP application. Patient is in need of applying to [employer] as application will 09/27/22. Please fax Januvia prescription to [facility] fax#[phone]. Sw will also assist patient with applying again to [employer] and mail application along with consent for release form to patient home. documented in this encounter [facility] 09-11-2022 Miscellaneous Notes Patient has been identified [...] to take this. documented in this encounter [facility] 08-31-2022 Miscellaneous Notes Pt returned call. Message [...] scheduled. Please advise documented in this encounter [facility] 08-20-2022 Miscellaneous Notes Spoke with patient. Informed [...] pasta, rice, corn, corn syrup. Jeana Mendoza APRN.DISPENSARY TECHNICIAN documented in this encounter [facility] 07-30-2022 Miscellaneous Notes Patient has been identified [...] Tamiko Rosario RN documented in this encounter [facility] 07-19-2022 Miscellaneous Notes Patient calling pharmacy is [...] Graciela Tello LPN documented in this encounter [facility] 07-12-2022 History of Present illness Narrative Patient [...] bedtime. Blood-Glucose Meter (ACCU-CHEK GUILLERMINA PLUS METER) [facility] Use daily as instructed. DX:E11.40 Insulin: No [...] Father at 71 of diabetes Heart Father PA Arthritis Maternal Grandmother other (Other) Maternal Grandmother [...] months and prn. documented in this encounter [facility] 06-06-2022 Miscellaneous Notes MARLENA 03/22/2022 Appointment scheduled [...] you. Shawna Roberts documented in this encounter [facility] 05-24-2022 Miscellaneous Notes Pt calling and states if she needs to continue medication below she will need a refill called. CHELLE Johnson will mail it to her. Please advise pt. Magig Gonzalez [facility] Patient has been identified by name and [...] Maggi Gonzalez LPN documented in this encounter [facility] 05-03-2022 Miscellaneous Notes Patient reports that she spoke with [facility] and she is eligible for refill on her Januvia on 06/18/22. Patient notes that she will contact [facility] at that time to request refill. Patient thanked David for assistance. Patient reports that she is getting low on her Januvia. She has number for [facility] and will call to see when she is eligible for refill on Januvia. Sw noted that she would check with [employer] [facility] and see when patient needs to complete new yearly application. Sw will let patient know what she learns from [employer]. Sw received message from patient requesting SW call her to discuss prescription assistance needs. Sw noted that she would reach out to patient tomorrow 05/03 @10am. documented in this encounter [facility] 04-24-2022 Miscellaneous Notes Patient has been identified [...] Rocio Tran LPN documented in this encounter [facility] 04-05-2022 Miscellaneous Notes ok Katie BOYD calling from [facility] to report plan of care for patient and Physical Therapy will visit patient 1 time a week for first week and 2 times a week for 4 weeks. Physical therapy will work with patient on Strengthening, Pain Management, and Gait/Transfer Safety. No Call Back needed. Pham Clemente RN documented in this encounter [facility] 04-03-2022 Miscellaneous Notes Liliam notified. Cayden Patterson LPN Yes Liliam from [facility] calls and states that patient is being discharged from [facility] on 04/04/2022 with the diagnosis of Laminectomy L3-L4 . Liliam asking if provider willing to follow patient with orders for Physical Therapy? If agreeable please give Liliam a call back . Thank you, Pham Clemente RN documented in this encounter [facility] 03-23-2022 Miscellaneous Notes Daughter was here picked up splint. Spoke with her about care of fracture. Spoke with pt 's daughter and information listed below given. Pt 's daughter verbalizes understanding. Daughter will cigar packer and picker down stairs. Please advise if this [...] see Alex lopez. documented in this encounter [facility] 03-22-2022 Miscellaneous Notes OV faxed See ov Dasia with Dr. Fam's office called to check on medical clearance for surgery on Saturday03-26-22. I let her know pt it having a pre op clearance apt today. She is asking to have everything faxed to [phone]. If there is any problems please call [phone]. Maggi Gonzalez LPN documented in this encounter [facility] 03-21-2022 Miscellaneous Notes TC to pt, she states surgery is scheduled for next Saturday (03/26). Appt scheduled for tomorrow (03/22) @ 4:20 with PCP. She is complicated enough, I would prefer to do a preop visit. Received fax from [facility] requesting medical clearance letter and any other pertinent information for patient to proceed with a repeat laminectomy L3-4 left side. They did not fax any type of form to be signed. Ok for letter? Advise. Lizeth Washington documented in this encounter [facility] 03-12-2022 Miscellaneous Notes Shanel is asking for a 90 script for all of the medication. Pharmacy verified in [facility] Patient has been identified by name [...] Katie Velasquez Pss documented in this encounter [facility] 03-06-2022 Miscellaneous Notes 2 week supply sent. Jeana Mendoza APRN.ANGI [place] spoke with patient and she reports that she did call [facility] Patient Assistance program for Januvia. Patient reports that the automated message stated that prescription refill was now in process. Patient notes that [facility] did not mention how long it [...] note that patient would need to call [facility] to request Januvia refill. Patient notes that she will tell [facility] that she is out of medication and [...] let know what she finds out from [facility]. documented in this encounter [facility] 02-16-2022 History of Present illness Narrative This [...] bedtime. Blood-Glucose Meter (ACCU-CHEK GUILLERMINA PLUS METER) [facility] Use daily as instructed. DX:E11.40 Insulin: No [...] as needed. Blood-Glucose Meter (ACCU-CHEK GUILLERMINA MONITORING) [facility] Kit USE DIRECTED No current facility-administered medications for this visit. FAMILY HISTORY Problem Relation Age of Onset Arthritis Mother Hypertension Father Stroke Father Diabetes Father at 71 of diabetes Heart Father PA Arthritis Maternal Grandmother other (Other) Maternal Grandmother [...] as needed for worsening/no improvement. Jeana Mendoza APRN.DISPENSARY TECHNICIAN documented in this encounter [facility] 02-09-2022 Miscellaneous Notes Appointment has been scheduled. [...] order to pend. documented in this encounter [facility] 02-01-2022 Miscellaneous Notes noted Patient reports she [...] medication. Thank you. documented in this encounter [facility] 01-18-2022 Instructions Kathie Julian MD - 01/18/2022 11:54 AM EDT Call with an update next week on the bowels. Call if worsens. documented in this encounter [facility] 01-18-2022 Nurse Note Bowels have changed noticed that are very thin skinny formed. Left leg itching 2-3 weeks. No visible rash. Elbow is tool tender from fall. Bleed again through the night. Still on clindamycin for her elbow also. documented in this encounter [facility] 01-18-2022 History of Present illness Narrative Patient [...] 2-3 weeks. No visible rash. Elbow is tool tender from fall. Bleed again through the night. [...] bedtime. Blood-Glucose Meter (ACCU-CHEK GUILLERMINA PLUS METER) [facility] Use daily as instructed. DX:E11.40 Insulin: No [...] as needed. Blood-Glucose Meter (ACCU-CHEK GUILLERMINA MONITORING) [facility] Kit USE DIRECTED No current facility-administered medications [...] Father at 71 of diabetes Heart Father PA Arthritis Maternal Grandmother other (Other) Maternal Grandmother [...] TEST Kathie Julian documented in this encounter [facility] 01-17-2022 Miscellaneous Notes Pt called in and [...] at 1120 am. documented in this encounter [facility] 01-12-2022 Miscellaneous Notes Patient was notified [facility] [employer] Ma 1. Sugars are up. Watch diet and call sugars in two weeks. Get a1c in three months. 2. Protein in urine is better. Stay on bp meds 3. Red blood cells are smaller. Check iron in the week or two . documented in this encounter [facility] 01-10-2022 History of Present illness Narrative No [...] Father at 71 of diabetes Heart Father PA Arthritis Maternal Grandmother other (Other) Maternal Grandmother [...] RELEASE Kathie Julian documented in this encounter [facility] 01-05-2022 History of Present illness Narrative 01/05/2022 [...] - patient is agreeable to go to [place] [facility]. Daughter will drive her Arpita Harvey APRN.CNP Prescription instructions reviewed with patient as applicable. Patient advised if symptoms do not improve or if symptoms worsen sooner, to contact their primary care physician. Potential red flag symptoms discussed with the patient. Reviewed appropriate action plan to take if red flag symptoms occur. Patient agreeable to treatment plan. documented in this encounter [facility] 01-04-2022 Miscellaneous Notes Patient calls to report that her left elbow isn't getting any better since her appointment at end of November. Patient reports that the scabbed area is now open and draining a small amount of yellow drainage. Redness noted to christopher-wound. PCP with no available appointments. Patient declined scheduling with PA. Patient requesting appointment with another provider in [facility]. Scheduled tomorrow per request. Jaylin Camacho RN documented in this encounter [facility] 12-18-2021 Miscellaneous Notes Script sent. Jeana Mendoza APRN.ANGI Scheduled 01/10/22 Pharmacy verified in [facility] Patient has been identified by name [...] Katie Velasquez Pss documented in this encounter [facility] 12-12-2021 Miscellaneous Notes Patient has been identified by name and date of : Yes Pending Prescriptions Disp Refills VALSARTAN 320 MG TABLET 90 tablet 3 Sig: Take 1 tablet by mouth once daily. TRIP: No RX INSTRUCTIONS: Patient requesting a call when RX is approved and sent to the pharmacy. Please call patient at: [phone]. Sheree Gonzalez Pss documented in this encounter [facility] 12-09-2021 History of Present illness Narrative This note was created using [employer]. Subjective Shanel Felton is a 81 year [...] Father at 71 of diabetes Heart Father PA Arthritis Maternal Grandmother other (Other) Maternal Grandmother [...] Jessica Rivera PA-C documented in this encounter [facility] 11-10-2021 Miscellaneous Notes Voicemails left 11/10/2021 by both patient and Ibis from [facility] in Dr. Mark's office in [place], [place] Requesting records from Dr. Pappas and Pattie Freed PA-C office to be faxed to [phone] Records sent via fax at this time documented in this encounter [facility] 11-09-2021 History of Present illness Narrative POP[facility] NAVIGATION OUTREACH Action/[facility] [place] Support: Called pt to schedule an appt [...] 2021 1:16 PM documented in this encounter [facility] 11-08-2021 Instructions Jeana Mendoza APRN.CNP - 11/08/2021 4:09 PM EDT 1. Please help schedule with pain management and ortho here in [place]. documented in this encounter [facility] 11-08-2021 History of Present illness Narrative This [...] bedtime. Blood-Glucose Meter (ACCU-CHEK GUILLERMINA PLUS METER) [facility] Use daily as instructed. DX:E11.40 Insulin: No [...] as needed. Blood-Glucose Meter (ACCU-CHEK GUILLERMINA MONITORING) [facility] Kit USE DIRECTED gabapentin (NEURONTIN) 300 mg capsule Take 2 capsules by mouth daily at bedtime for 180 days. Patient also takes one pill in the morning as needed No current facility-administered medications for this visit. FAMILY HISTORY Problem Relation Age of Onset Arthritis Mother Hypertension Father Stroke Father Diabetes Father at 71 of diabetes Heart Father PA Arthritis Maternal Grandmother other (Other) Maternal Grandmother [...] scheduled or as needed for worsening/no improvement. eJana Mendoza APRN.ANGI This note was partially generated using [employer] voice recognition system. Note was reviewed for accuracy. There may be minor misspellings or grammar miscues with [employer] voice recognition. documented in this encounter [facility] 11-08-2021 Miscellaneous Notes Protocol Recommended: See PCP [...] bowel function 7. :n/a Protocols used: LEG [id number] documented in this encounter [facility] 11-01-2021 Miscellaneous Notes Addended by: AMARA RAMIRES on: 11/01/2021 11:02 AM Modules accepted: Orders documented in this encounter [facility] 11-01-2021 History of Present illness Narrative Episode [...] Planned: 8 Planned Treatment Interventions: Therapeutic exercise (95349);Neuromuscular re-education (41543);Manual therapy (01624);Therapeutic activities (67924);Self-group home management (37699);Gait Training (51541);Patient/Family/Caregiver Education PLAN FOR NEXT VISIT: Will continue [...] ago laminectomy surgery multiple levels) Preferred Language: Monegasque Employment: Retired Recreation / Current Exercise: bike [...] Amara Ramires PT documented in this encounter [facility] documented as of this encounter (statuses as of 01/10/2022) [facility] History of Past illness Narrative* Problem Noted Date Resolved Date Acute left-sided low back pain with left-sided s ciatica 10/31/2021 01/08/2022 Acute pancreatitis 05/03/2021 01/08/2022 Overview: 04/28/2021 presented to [facility] ED with complaint of mid abdominal pain, nausea and dry heaves with intermittent vomiting over 2 days[address] Has followed with Dr[address] Rich gastroenterology as outpatient. Vital signs 90 2M-60-16-126/59-100% RA. Exam is unremarkable. WBC 6.6 Hgb [...] Overview: Added automatically from request for surgery [id number] Acute pain of right knee 05/08/2017 017 [...] of this encounter (statuses as of 01/12/2022) [facility] History of Past illness Narrative* Problem Noted Date Resolved Date Acute left-sided low back pain with left-sided s ciatica 10/31/2021 01/08/2022 Acute pancreatitis 05/03/2021 01/08/2022 Overview: 04/28/2021 presented to [facility] ED with complaint of mid abdominal pain, nausea and dry heaves with intermittent vomiting over 2 days. Has followed with Dr. Rich gastroenterology as outpatient. Vital signs 90 8B-80-39-126/59-100% RA. Exam is unremarkable. WBC 6.6 Hgb [...] Overview: Added automatically from request for surgery [id number] Acute pain of right knee 05/08/2017 017 [...] of this encounter (statuses as of 01/18/2022) [facility] History of Past illness Narrative* Problem Noted Date Resolved Date Acute left-sided low back pain with left-sided s ciatica 10/31/2021 01/08/2022 Acute pancreatitis 05/03/2021 01/08/2022 Overview: 04/28/2021 presented to [facility] ED with complaint of mid abdominal pain, nausea and dry heaves with intermittent vomiting over 2 days. Has followed with Dr. Rich gastroenterology as outpatient. Vital signs 90 6J-82-69-126/59-100% RA. Exam is unremarkable. WBC 6.6 Hgb [...] Overview: Added automatically from request for surgery [id number] Acute pain of right knee 05/08/2017 017 [...] of this encounter (statuses as of 02/01/2022) [facility] History of Past illness Narrative* Problem Noted Date Resolved Date Acute left-sided low back pain with left-sided s ciatica 10/31/2021 01/08/2022 Acute pancreatitis 05/03/2021 01/08/2022 Overview: 04/28/2021 presented to [facility] ED with complaint of mid abdominal pain, nausea and dry heaves with intermittent vomiting over 2 days. Has followed with Dr. Rich gastroenterology as outpatient. Vital signs 90 7D-21-42-126/59-100% RA. Exam is unremarkable. WBC 6.6 Hgb [...] Overview: Added automatically from request for surgery [id number] Acute pain of right knee 05/08/2017 017 [...] of this encounter (statuses as of 02/09/2022) [facility] History of Past illness Narrative* Problem Noted Date Resolved Date Acute left-sided low back pain with left-sided s ciatica 10/31/2021 01/08/2022 Acute pancreatitis 05/03/2021 01/08/2022 Overview: 04/28/2021 presented to [facility] ED with complaint of mid abdominal pain, nausea and dry heaves with intermittent vomiting over 2 days. Has followed with Dr. Rich gastroenterology as outpatient. Vital signs 90 9E-40-32-126/59-100% RA. Exam is unremarkable. WBC 6.6 Hgb [...] Overview: Added automatically from request for surgery [id number] Acute pain of right knee 05/08/2017 017 [...] of this encounter (statuses as of 02/16/2022) [facility] History of Past illness Narrative* Problem Noted Date Resolved Date Acute left-sided low back pain with left-sided s ciatica 10/31/2021 01/08/2022 Acute pancreatitis 05/03/2021 01/08/2022 Overview: 04/28/2021 presented to [facility] ED with complaint of mid abdominal pain, nausea and dry heaves with intermittent vomiting over 2 days. Has followed with Dr. Rich gastroenterology as outpatient. Vital signs 90 3F-21-37-126/59-100% RA. Exam is unremarkable. WBC 6.6-Hgb 12.9-HCT [...] Overview: Added automatically from request for surgery [id number] Acute pain of right knee 05/08/2017 017 [...] of this encounter (statuses as of 03/07/2022) [facility] of Past illness Narrative* Problem Noted Date Resolved Date Acute left-sided low back pain with left-sided s ciatica 10/31/2021 01/08/2022 Acute pancreatitis 05/03/2021 01/08/2022 Overview: 04/28/2021 presented to [facility] ED with complaint of mid abdominal pain, nausea and dry heaves with intermittent vomiting over 2 days. Has followed with Dr. Rich gastroenterology as outpatient. Vital signs 90 8N-21-83-126/59-100% RA. Exam is unremarkable. WBC 6.6-Hgb 12.9-HCT [...] Overview: Added automatically from request for surgery [id number] Acute pain of right knee 05/08/2017 017 [...] of this encounter (statuses as of 03/12/2022) [facility] of Past illness Narrative* Problem Noted Date Resolved Date Acute left-sided low back pain with left-sided s ciatica 10/31/2021 01/08/2022 Acute pancreatitis 05/03/2021 01/08/2022 Overview: 04/28/2021 presented to [facility] ED with complaint of mid abdominal pain, nausea and dry heaves with intermittent vomiting over 2 days. Has followed with Dr. Rich gastroenterology as outpatient. Vital signs 90 8L-02-36-126/59-100% RA. Exam is unremarkable. WBC 6.6-Hgb 12.9-HCT [...] Overview: Added automatically from request for surgery [id number] Acute pain of right knee 05/08/2017 017 [...] of this encounter (statuses as of 03/12/2022) [facility] of Past illness Narrative* Problem Noted Date Resolved Date Acute left-sided low back pain with left-sided s ciatica 10/31/2021 01/08/2022 Acute pancreatitis 05/03/2021 01/08/2022 Overview: 04/28/2021 presented to [facility] ED with complaint of mid abdominal pain, nausea and dry heaves with intermittent vomiting over 2 days. Has followed with Dr. Rich gastroenterology as outpatient. Vital signs 90 4L-48-28-126/59-100% RA. Exam is unremarkable. WBC 6.6-Hgb 12.9-HCT [...] Overview: Added automatically from request for surgery [id number] Acute pain of right knee 05/08/2017 017 [...] of this encounter (statuses as of 03/21/2022) [facility] of Past illness Narrative* Problem Noted Date Resolved Date Acute left-sided low back pain with left-sided s ciatica 10/31/2021 01/08/2022 Acute pancreatitis 05/03/2021 01/08/2022 Overview: 04/28/2021 presented to [facility] ED with complaint of mid abdominal pain, nausea and dry heaves with intermittent vomiting over 2 days. Has followed with Dr. Rich gastroenterology as outpatient. Vital signs 90 1Q-31-56-126/59-100% RA. Exam is unremarkable. WBC 6.6-Hgb 12.9-HCT [...] Overview: Added automatically from request for surgery [id number] Acute pain of right knee 05/08/2017 017 [...] of this encounter (statuses as of 03/22/2022) [facility] of Past illness Narrative* Problem Noted Date Resolved Date Acute left-sided low back pain with left-sided s ciatica 10/31/2021 01/08/2022 Acute pancreatitis 05/03/2021 01/08/2022 Overview: 04/28/2021 presented to [facility] ED with complaint of mid abdominal pain, nausea and dry heaves with intermittent vomiting over 2 days. Has followed with Dr. Rich gastroenterology as outpatient. Vital signs 90 4N-30-10-126/59-100% RA. Exam is unremarkable. WBC 6.6-Hgb 12.9-HCT [...] Overview: Added automatically from request for surgery [id number] Acute pain of right knee 05/08/2017 017 [...] of this encounter (statuses as of 03/23/2022) [facility] of Past illness Narrative* Problem Noted Date Resolved Date Acute left-sided low back pain with left-sided s ciatica 10/31/2021 01/08/2022 Acute pancreatitis 05/03/2021 01/08/2022 Overview: 04/28/2021 presented to [facility] ED with complaint of mid abdominal pain, nausea and dry heaves with intermittent vomiting over 2 days. Has followed with Dr. Rich gastroenterology as outpatient. Vital signs 90 4O-71-96-126/59-100% RA. Exam is unremarkable. WBC 6.6-Hgb 12.9-HCT [...] Overview: Added automatically from request for surgery [id number] Acute pain of right knee 05/08/2017 Decreased [...] of this encounter (statuses as of 04/03/2022) [facility] of Past illness Narrative* Problem Noted Date Resolved Date Acute left-sided low back pain with left-sided s ciatica 10/31/2021 01/08/2022 Acute pancreatitis 05/03/2021 01/08/2022 Overview: 04/28/2021 presented to [facility] ED with complaint of mid abdominal pain, nausea and dry heaves with intermittent vomiting over 2 days. Has followed with Dr. Rich gastroenterology as outpatient. Vital signs 90 4U-04-55-126/59-100% RA. Exam is unremarkable. WBC 6.6-Hgb 12.9-HCT [...] Overview: Added automatically from request for surgery [id number] Acute pain of right knee 05/08/2017 017 [...] of this encounter (statuses as of 04/05/2022) [facility] History of Past illness Narrative* Problem Noted Date Resolved Date Acute left-sided low back pain with left-sided s ciatica 10/31/2021 01/08/2022 Acute pancreatitis 05/03/2021 01/08/2022 Overview: 04/28/2021 presented to [facility] ED with complaint of mid abdominal pain, nausea and dry heaves with intermittent vomiting over 2 days[address] Has followed with Dr[address] Rich gastroenterology as outpatient. Vital signs 90 6U-65-73-126/59-100% RA. Exam is unremarkable. WBC 6.6-Hgb 12.9-HCT [...] Overview: Added automatically from request for surgery [id number] Acute pain of right knee 05/08/2017 017 [...] of this encounter (statuses as of 04/24/2022) [facility] History of Past illness Narrative* Problem Noted Date Resolved Date Acute left-sided low back pain with left-sided s ciatica 10/31/2021 01/08/2022 Acute pancreatitis 05/03/2021 01/08/2022 Overview: 04/28/2021 presented to [facility] ED with complaint of mid abdominal pain, nausea and dry heaves with intermittent vomiting over 2 days. Has followed with Dr. Rich gastroenterology as outpatient. Vital signs 90 8V-90-40-126/59-100% RA. Exam is unremarkable. WBC 6.6-Hgb 12.9-HCT [...] Overview: Added automatically from request for surgery [id number] Acute pain of right knee 05/08/2017 017 [...] of this encounter (statuses as of 05/03/2022) [facility] History of Past illness Narrative* Problem Noted Date Resolved Date Acute left-sided low back pain with left-sided s ciatica 10/31/2021 01/08/2022 Acute pancreatitis 05/03/2021 01/08/2022 Overview: 04/28/2021 presented to [facility] ED with complaint of mid abdominal pain, nausea and dry heaves with intermittent vomiting over 2 days. Has followed with Dr. Rich gastroenterology as outpatient. Vital signs 90 9W-37-04-126/59-100% RA. Exam is unremarkable. WBC 6.6-Hgb 12.9-HCT [...] Overview: Added automatically from request for surgery [id number] Acute pain of right knee 05/08/2017 017 [...] of this encounter (statuses as of 05/24/2022) [facility] History of Past illness Narrative* Problem Noted Date Resolved Date Acute left-sided low back pain with left-sided s ciatica 10/31/2021 01/08/2022 Acute pancreatitis 05/03/2021 01/08/2022 Overview: 04/28/2021 presented to [facility] ED with complaint of mid abdominal pain, nausea and dry heaves with intermittent vomiting over 2 days. Has followed with Dr. Rich gastroenterology as outpatient. Vital signs 90 0T-36-71-126/59-100% RA. Exam is unremarkable. WBC 6.6-Hgb 12.9-HCT [...] Overview: Added automatically from request for surgery [id number] Acute pain of right knee 05/08/2017 017 [...] of this encounter (statuses as of 06/06/2022) [facility] History of Past illness Narrative* Problem Noted Date Resolved Date Acute left-sided low back pain with left-sided s ciatica 10/31/2021 01/08/2022 Acute pancreatitis 05/03/2021 01/08/2022 Overview: 04/28/2021 presented to [facility] ED with complaint of mid abdominal pain, nausea and dry heaves with intermittent vomiting over 2 days. Has followed with Dr. Rich gastroenterology as outpatient. Vital signs 90 6Q-56-15-126/59-100% RA. Exam is unremarkable. WBC 6.6-Hgb 12.9-HCT [...] Overview: Added automatically from request for surgery [id number] Acute pain of right knee 05/08/2017 017 [...] of this encounter (statuses as of 07/08/2022) [facility] History of Past illness Narrative* Problem Noted Date Resolved Date Acute left-sided low back pain with left-sided s ciatica 10/31/2021 01/08/2022 Acute pancreatitis 05/03/2021 01/08/2022 Overview: 04/28/2021 presented to [facility] ED with complaint of mid abdominal pain, nausea and dry heaves with intermittent vomiting over 2 days. Has followed with Dr. Rich gastroenterology as outpatient. Vital signs 90 9J-07-63-126/59-100% RA. Exam is unremarkable. WBC 6.6-Hgb 12.9-HCT [...] Overview: Added automatically from request for surgery [id number] Acute pain of right knee 05/08/2017 017 [...] of this encounter (statuses as of 07/18/2022) [facility] History of Past illness Narrative* Problem Noted Date Resolved Date Acute left-sided low back pain with left-sided s ciatica 10/31/2021 01/08/2022 Acute pancreatitis 05/03/2021 01/08/2022 Overview: 04/28/2021 presented to [facility] ED with complaint of mid abdominal pain, nausea and dry heaves with intermittent vomiting over 2 days. Has followed with Dr. Rich gastroenterology as outpatient. Vital signs 90 6V-43-28-126/59-100% RA. Exam is unremarkable. WBC 6.6-Hgb 12.9-HCT [...] Overview: Added automatically from request for surgery [id number] Acute pain of right knee 05/08/2017 017 [...] of this encounter (statuses as of 07/20/2022) [facility] History of Past illness Narrative* Problem Noted Date Resolved Date Acute left-sided low back pain with left-sided s ciatica 10/31/2021 01/08/2022 Acute pancreatitis 05/03/2021 01/08/2022 Overview: 04/28/2021 presented to [facility] ED with complaint of mid abdominal pain, nausea and dry heaves with intermittent vomiting over 2 days. Has followed with Dr. Rich gastroenterology as outpatient. Vital signs 90 8X-92-12-126/59-100% RA. Exam is unremarkable. WBC 6.6-Hgb 12.9-HCT [...] Overview: Added automatically from request for surgery [id number] Acute pain of right knee 05/08/2017 017 [...] of this encounter (statuses as of 07/30/2022) [facility] History of Past illness Narrative* Problem Noted Date Resolved Date Acute left-sided low back pain with left-sided s ciatica 10/31/2021 01/08/2022 Acute pancreatitis 05/03/2021 01/08/2022 Overview: 04/28/2021 presented to [facility] ED with complaint of mid abdominal pain, nausea and dry heaves with intermittent vomiting over 2 days. Has followed with Dr. Rcih gastroenterology as outpatient. Vital signs 90 1U-93-72-126/59-100% RA. Exam is unremarkable. WBC 6.6-Hgb 12.9-HCT [...] Overview: Added automatically from request for surgery [id number] Acute pain of right knee 05/08/2017 017 [...] of this encounter (statuses as of 08/20/2022) [facility] History of Past illness Narrative* Problem Noted Date Resolved Date Acute left-sided low back pain with left-sided s ciatica 10/31/2021 01/08/2022 Acute pancreatitis 05/03/2021 01/08/2022 Overview: 04/28/2021 presented to [facility] ED with complaint of mid abdominal pain, nausea and dry heaves with intermittent vomiting over 2 days. Has followed with Dr. Rich gastroenterology as outpatient. Vital signs 90 9I-80-88-126/59-100% RA. Exam is unremarkable. WBC 6.6-Hgb 12.9-HCT [...] Overview: Added automatically from request for surgery [id number] Acute pain of right knee 05/08/2017 017 [...] of this encounter (statuses as of 08/31/2022) [facility] History of Past illness Narrative* Problem Noted Date Resolved Date Acute left-sided low back pain with left-sided s ciatica 10/31/2021 01/08/2022 Acute pancreatitis 05/03/2021 01/08/2022 Overview: 04/28/2021 presented to [facility] ED with complaint of mid abdominal pain, nausea and dry heaves with intermittent vomiting over 2 days. Has followed with Dr. Rich gastroenterology as outpatient. Vital signs 90 9M-33-70-126/59-100% RA. Exam is unremarkable. WBC 6.6-Hgb 12.9-HCT [...] Overview: Added automatically from request for surgery [id number] Acute pain of right knee 05/08/2017 017 [...] of this encounter (statuses as of 09/12/2022) [facility] History of Past illness Narrative* Problem Noted Date Resolved Date Acute left-sided low back pain with left-sided s ciatica 10/31/2021 01/08/2022 Acute pancreatitis 05/03/2021 01/08/2022 Overview: 04/28/2021 presented to [facility] ED with complaint of mid abdominal pain, nausea and dry heaves with intermittent vomiting over 2 days. Has followed with Dr. Rich gastroenterology as outpatient. Vital signs 90 3S-22-13-126/59-100% RA. Exam is unremarkable. WBC 6.6-Hgb 12.9-HCT [...] Overview: Added automatically from request for surgery [id number] Acute pain of right knee 05/08/2017 017 [...] of this encounter (statuses as of 09/20/2022) [facility] History of Past illness Narrative* Problem Noted Date Resolved Date Acute left-sided low back pain with left-sided s ciatica 10/31/2021 01/08/2022 Acute pancreatitis 05/03/2021 01/08/2022 Overview: 04/28/2021 presented to [facility] ED with complaint of mid abdominal pain, nausea and dry heaves with intermittent vomiting over 2 days. Has followed with Dr. Rich gastroenterology as outpatient. Vital signs 90 9O-48-61-126/59-100% RA. Exam is unremarkable. WBC 6.6-Hgb 12.9-HCT [...] Overview: Added automatically from request for surgery [id number] Acute pain of right knee 05/08/2017 017 [...] of this encounter (statuses as of 09/21/2022) [facility] History of Past illness Narrative* Problem Noted Date Resolved Date Acute left-sided low back pain with left-sided s ciatica 10/31/2021 01/08/2022 Acute pancreatitis 05/03/2021 01/08/2022 Overview: 04/28/2021 presented to [facility] ED with complaint of mid abdominal pain, nausea and dry heaves with intermittent vomiting over 2 days. Has followed with Dr. Rich gastroenterology as outpatient. Vital signs 90 8E-53-25-126/59-100% RA. Exam is unremarkable. WBC 6.6-Hgb 12.9-HCT [...] Overview: Added automatically from request for surgery [id number] Acute pain of right knee 05/08/2017 017 [...] of this encounter (statuses as of 10/03/2022) [facility] History of Past illness Narrative* Problem Noted Date Resolved Date Acute left-sided low back pain with left-sided s ciatica 10/31/2021 01/08/2022 Acute pancreatitis 05/03/2021 01/08/2022 Overview: 04/28/2021 presented to [facility] ED with complaint of mid abdominal pain, nausea and dry heaves with intermittent vomiting over 2 days. Has followed with Dr. Rich gastroenterology as outpatient. Vital signs 90 1Y-20-39-126/59-100% RA. Exam is unremarkable. WBC 6.6-Hgb 12.9-HCT [...] Overview: Added automatically from request for surgery [id number] Acute pain of right knee 05/08/2017 017 [...] of this encounter (statuses as of 10/09/2022) [facility] History of Past illness Narrative* Problem Noted Date Resolved Date Acute left-sided low back pain with left-sided s ciatica 10/31/2021 01/08/2022 Acute pancreatitis 05/03/2021 01/08/2022 Overview: 04/28/2021 presented to [facility] ED with complaint of mid abdominal pain, nausea and dry heaves with intermittent vomiting over 2 days. Has followed with Dr. Rich gastroenterology as outpatient. Vital signs 90 8Q-17-78-126/59-100% RA. Exam is unremarkable. WBC 6.6-Hgb 12.9-HCT [...] Overview: Added automatically from request for surgery [id number] Acute pain of right knee 05/08/2017 017 [...] of this encounter (statuses as of 10/12/2022) [facility] History of Past illness Narrative* Problem Noted Date Resolved Date Acute left-sided low back pain with left-sided s ciatica 10/31/2021 01/08/2022 Acute pancreatitis 05/03/2021 01/08/2022 Overview: 04/28/2021 presented to [facility] ED with complaint of mid abdominal pain, nausea and dry heaves with intermittent vomiting over 2 days. Has followed with Dr. Rich gastroenterology as outpatient. Vital signs 90 4C-58-44-126/59-100% RA. Exam is unremarkable. WBC 6.6-Hgb 12.9-HCT [...] Overview: Added automatically from request for surgery [id number] Acute pain of right knee 05/08/2017 017 [...] of this encounter (statuses as of 10/18/2022) [facility] History of Past illness Narrative* Problem Noted Date Resolved Date Acute left-sided low back pain with left-sided s ciatica 10/31/2021 01/08/2022 Acute pancreatitis 05/03/2021 01/08/2022 Overview: 04/28/2021 presented to [facility] ED with complaint of mid abdominal pain, nausea and dry heaves with intermittent vomiting over 2 days. Has followed with Dr. Rich gastroenterology as outpatient. Vital signs 90 1Q-21-20-126/59-100% RA. Exam is unremarkable. WBC 6.6-Hgb 12.9-HCT [...] Overview: Added automatically from request for surgery [id number] Acute pain of right knee 05/08/2017 Decreased [...] of this encounter (statuses as of 12/14/2022) [facility] History of Past illness Narrative* Problem Noted Date Resolved Date Acute left-sided low back pain with left-sided s ciatica 10/31/2021 01/08/2022 Acute pancreatitis 05/03/2021 01/08/2022 Overview: 04/28/2021 presented to [facility] ED with complaint of mid abdominal pain, nausea and dry heaves with intermittent vomiting over 2 days. Has followed with Dr. Rich gastroenterology as outpatient. Vital signs 90 2M-94-91-126/59-100% RA. Exam is unremarkable. WBC 6.6-Hgb 12.9-HCT [...] Overview: Added automatically from request for surgery [id number] Acute pain of right knee 05/08/2017 017 [...] of this encounter (statuses as of 12/15/2022) [facility] History of Past illness Narrative* Problem Noted Date Diagnosed Date Resolved Date Acute left-sided low back pa in with left-sided sciatica 10/31/2021 01/08/2022 Acute pancreatitis 05/03/2021 2 Overview: 04/28/2021 presented to [facility] ED with complaint of mid abdominal pain, nausea and dry heaves with intermittent vomiting over 2 days. Has followed with Dr. Rich gastroenterology as outpatient. Vital signs 90 8C-76-29-126/59-100% RA. Exam is unremarkable. WBC 6.6-Hgb 12.9-HCT [...] Overview: Added automatically from request for surgery [id number] Acute pain of right knee 05/08/201710/2016 Decreased [...] of this encounter (statuses as of 02/11/2023) [facility] History of Past illness Narrative* Problem Noted Date Diagnosed Date Resolved Date Acute left-sided low back pa in with left-sided sciatica 10/31/2021 01/08/2022 Acute pancreatitis 05/03/2021 Overview: 04/28/2021 presented to [facility] ED with complaint of mid abdominal pain, nausea and dry heaves with intermittent vomiting over 2 days. Has followed with Dr. Rich gastroenterology as outpatient. Vital signs 90 4I-46-69-126/59-100% RA. Exam is unremarkable. WBC 6.6-Hgb 12.9-HCT [...] Overview: Added automatically from request for surgery [id number] Acute pain of right knee 05/08/201710/2016 Decreased [...] of this encounter (statuses as of 02/18/2023) [facility] History of Past illness Narrative* Problem Noted Date Diagnosed Date Resolved Date Acute left-sided low back pa in with left-sided sciatica 10/31/2021 01/08/2022 Acute pancreatitis 05/03/2021 2 Overview: 04/28/2021 presented to [facility] ED with complaint of mid abdominal pain, nausea and dry heaves with intermittent vomiting over 2 days. Has followed with Dr. Rich gastroenterology as outpatient. Vital signs 90 8S-18-21-126/59-100% RA. Exam is unremarkable. WBC 6.6-Hgb 12.9-HCT [...] Overview: Added automatically from request for surgery [id number] Acute pain of right knee 05/08/201710/2016 Decreased [...] of this encounter (statuses as of 02/20/2023) [facility] History of Past illness Narrative* Problem Noted Date Diagnosed Date Resolved Date Acute left-sided low back pa in with left-sided sciatica 10/31/2021 01/08/2022 Acute pancreatitis 05/03/2021 Overview: 04/28/2021 presented to [facility] ED with complaint of mid abdominal pain, nausea and dry heaves with intermittent vomiting over 2 days. Has followed with Dr. Rich gastroenterology as outpatient. Vital signs 90 6B-10-59-126/59-100% RA. Exam is unremarkable. WBC 6.6-Hgb 12.9-HCT [...] Overview: Added automatically from request for surgery [id number] Acute pain of right knee 05/08/201710/2016 Decreased [...] of this encounter (statuses as of 03/07/2023) [facility] History of Past illness Narrative* Problem Noted Date Diagnosed Date Resolved Date Acute left-sided low back pa in with left-sided sciatica 10/31/2021 01/08/2022 Acute pancreatitis 05/03/2021 2 Overview: 04/28/2021 presented to [facility] ED with complaint of mid abdominal pain, nausea and dry heaves with intermittent vomiting over 2 days. Has followed with Dr. Rich gastroenterology as outpatient. Vital signs 90 5I-59-17-126/59-100% RA. Exam is unremarkable. WBC 6.6-Hgb 12.9-HCT [...] Overview: Added automatically from request for surgery [id number] Acute pain of right knee 05/08/201710/2016 Decreased [...] of this encounter (statuses as of 05/18/2023) [facility] History of Past illness Narrative* Problem Noted Date Diagnosed Date Resolved Date Acute left-sided low back pa in with left-sided sciatica 10/31/2021 01/08/2022 Acute pancreatitis 05/03/2021 2 Overview: 04/28/2021 presented to [facility] ED with complaint of mid abdominal pain, nausea and dry heaves with intermittent vomiting over 2 days. Has followed with Dr. Rich gastroenterology as outpatient. Vital signs 90 3X-68-71-126/59-100% RA. Exam is unremarkable. WBC 6.6-Hgb 12.9-HCT [...] Overview: Added automatically from request for surgery [id number] Acute pain of right knee 05/08/201710/2016 Decreased [...] of this encounter (statuses as of 05/23/2023) [facility] History of Past illness Narrative* Problem Noted Date Diagnosed Date Resolved Date Acute left-sided low back pa in with left-sided sciatica 10/31/2021 01/08/2022 Acute pancreatitis 05/03/2021 Overview: 04/28/2021 presented to [facility] ED with complaint of mid abdominal pain, nausea and dry heaves with intermittent vomiting over 2 days. Has followed with Dr. Rich gastroenterology as outpatient. Vital signs 90 0V-00-88-126/59-100% RA. Exam is unremarkable. WBC 6.6-Hgb 12.9-HCT [...] Overview: Added automatically from request for surgery [id number] Acute pain of right knee 05/08/201710/2016 Decreased [...] of this encounter (statuses as of 05/23/2023) [facility] History of Past illness Narrative* Problem Noted Date Diagnosed Date Resolved Date Acute left-sided low back pa in with left-sided sciatica 10/31/2021 01/08/2022 Acute pancreatitis 05/03/2021 2 Overview: 04/28/2021 presented to [facility] ED with complaint of mid abdominal pain, nausea and dry heaves with intermittent vomiting over 2 days. Has followed with Dr. Rich gastroenterology as outpatient. Vital signs 90 6Y-13-37-126/59-100% RA. Exam is unremarkable. WBC 6.6-Hgb 12.9-HCT [...] Overview: Added automatically from request for surgery [id number] Acute pain of right knee 05/08/201710/2016 Decreased [...] of this encounter (statuses as of 06/05/2023) [facility] History of Past illness Narrative* Problem Noted Date Diagnosed Date Resolved Date Acute left-sided low back pa in with left-sided sciatica 10/31/2021 01/08/2022 Acute pancreatitis 05/03/2021 Overview: 04/28/2021 presented to [facility] ED with complaint of mid abdominal pain, nausea and dry heaves with intermittent vomiting over 2 days. Has followed with Dr. Rich gastroenterology as outpatient. Vital signs 90 5H-17-52-126/59-100% RA. Exam is unremarkable. WBC 6.6-Hgb 12.9-HCT [...] Overview: Added automatically from request for surgery [id number] Acute pain of right knee 05/08/201710/2016 Decreased [...] of this encounter (statuses as of 06/14/2023) [facility] History of Past illness Narrative* Problem Noted Date Diagnosed Date Resolved Date Acute left-sided low back pa in with left-sided sciatica 10/31/2021 01/08/2022 Acute pancreatitis 05/03/2021 2 Overview: 04/28/2021 presented to [facility] ED with complaint of mid abdominal pain, nausea and dry heaves with intermittent vomiting over 2 days. Has followed with Dr. Rich gastroenterology as outpatient. Vital signs 90 5Y-05-91-126/59-100% RA. Exam is unremarkable. WBC 6.6-Hgb 12.9-HCT [...] Overview: Added automatically from request for surgery [id number] Acute pain of right knee 05/08/201710/2016 Decreased [...] of this encounter (statuses as of 06/26/2023) [facility]04[facility]18[facility] Miscellaneous Notes* Telephone Encounter - Dasia Cullen [...] it is difficult to get transportation to [place] to see Spine. Asking if she can try physical therapy first. If so, please place order and transfer to computer processing scheduler. * Telephone Encounter - Jeana Mendoza APRN.CNP [...] was going to a specialist up in [place] and reports he hasn't helped her one [...] Please call and advise. [facility] Miscellaneous Notes* Telephone Encounter - Lucrecia Henry [...] notify patient. Lucrecia Henry [facility] Miscellaneous Notes* Telephone Encounter - ANJELICA Oliva - 10/12/2021 3:48 PM EDT Sw spoke with patient in regards to below [employer] PAP information. Sw provided patient with below [facility] number for her to call when down to 14 days of medication. Patient thanked David for assistance. * Telephone Encounter - Kathie Julian MD - 10/12/2021 1:09 PM EDT Noted. Thank you * Telephone Encounter - ANJELICA Oliva - 10/12/2021 12:02 PM EDT David spoke with [employer] and patient has been approved for assistance with Januvia September-September. When patient needs refill on medication she is to call [facility] ph. [phone] 14 days before she is out of [facility]. [employer] dain notes that yes, they do use [facility] and they do not send approval [...] receiving 2 bottles of Januvia from a [facility]. Patient had applied to [employer] to see about assistance with Januvia.Patient reports that she has not received any letter from company stating that she was approved for assistance. Sw noted that she wouldcall and speak with [employer] and see what they say about patient assistance for patient. Patient wouldlike to know for how long she is approved. * Telephone Encounter - ANJELICA Oliva - 10/11/2021 12:15 PM EDT Patient called David back to let Sw know that she received 2 bottles of Januvia. Patient reports that the package says from [facility]. Sw called patient to talk with her to see if she has received a letter from [employer] in regards to the Januvia. Patient had applied to [employer] and had sent in her attestation form to [employer]. No answer and call was sent to patient vmail. Sw left patient message that she willcall patient later to discuss. Sw is not sure if [facility] is the pharmacy that [employer] uses. Patient noted that there was not chargeto her for the Januvia. [facility] History of Past illness Narrative* Problem Noted Date Resolved Date Tendonitis, Achilles, right 02/05/201902/13 Knee joint replacement status, right 07/10/2017 07/11/2017 PONV (postoperative nausea and vomiting) 017 03/03/2019 Primary osteoarthritis of right knee 06/12/2017 07/11/2017 Overview: Added automatically from request for surgery [id number] Acute pain of right knee 05/08/2017 017 [...] of this encounter (statuses as of 10/12/2021) [facility] Narrative* Problem Noted Date Resolved Date Tendonitis, Achilles, right 02/05/201902/13 Knee joint replacement status, right 07/10/2017 07/11/2017 PONV (postoperative nausea and vomiting) 017 03/03/2019 Primary osteoarthritis of right knee 06/12/2017 07/11/2017 Overview: Added automatically from request for surgery [id number] Acute pain of right knee 05/08/2017 017 [...] of this encounter (statuses as of 10/20/2021) [facility] Narrative* Problem Noted Date Resolved Date Tendonitis, Achilles, right 02/05/201902/13 Knee joint replacement status, right 07/10/2017 07/11/2017 PONV (postoperative nausea and vomiting) 017 03/03/2019 Primary osteoarthritis of right knee 06/12/2017 07/11/2017 Overview: Added automatically from request for surgery [id number] Acute pain of right knee 05/08/2017 017 [...] of this encounter (statuses as of 11/01/2021) [facility] History of Past illness Narrative* Problem Noted Date Resolved Date Tendonitis, Achilles, right 02/05/201902/13 Knee joint replacement status, right 07/10/2017 07/11/2017 PONV (postoperative nausea and vomiting) 017 03/03/2019 Primary osteoarthritis of right knee 06/12/2017 07/11/2017 Overview: Added automatically from request for surgery [id number] Acute pain of right knee 05/08/2017 017 [...] of this encounter (statuses as of 11/04/2021) [facility] History of Past illness Narrative* Problem Noted Date Resolved Date Tendonitis, Achilles, right 02/05/201902/13 Knee joint replacement status, right 07/10/2017 07/11/2017 PONV (postoperative nausea and vomiting) 017 03/03/2019 Primary osteoarthritis of right knee 06/12/2017 07/11/2017 Overview: Added automatically from request for surgery [id number] Acute pain of right knee 05/08/2017 017 [...] of this encounter (statuses as of 11/08/2021) [facility] History of Past illness Narrative* Problem Noted Date Resolved Date Tendonitis, Achilles, right 02/05/201902/13 Knee joint replacement status, right 07/10/2017 07/11/2017 PONV (postoperative nausea and vomiting) 017 03/03/2019 Primary osteoarthritis of right knee 06/12/2017 07/11/2017 Overview: Added automatically from request for surgery [id number] Acute pain of right knee 05/08/2017 017 [...] of this encounter (statuses as of 11/08/2021) [facility] History of Past illness Narrative* Problem Noted Date Resolved Date Tendonitis, Achilles, right 02/05/201902/13 Knee joint replacement status, right 07/10/2017 07/11/2017 PONV (postoperative nausea and vomiting) 017 03/03/2019 Primary osteoarthritis of right knee 06/12/2017 07/11/2017 Overview: Added automatically from request for surgery [id number] Acute pain of right knee 05/08/2017 017 [...] of this encounter (statuses as of 11/09/2021) [facility] History of Past illness Narrative* Problem Noted Date Resolved Date Tendonitis, Achilles, right 02/05/201902/13 Knee joint replacement status, right 07/10/2017 07/11/2017 PONV (postoperative nausea and vomiting) 017 03/03/2019 Primary osteoarthritis of right knee 06/12/2017 07/11/2017 Overview: Added automatically from request for surgery [id number] Acute pain of right knee 05/08/2017 017 [...] of this encounter (statuses as of 11/10/2021) [facility] History of Past illness Narrative* Problem Noted Date Resolved Date Tendonitis, Achilles, right 02/05/201902/13 Knee joint replacement status, right 07/10/2017 07/11/2017 PONV (postoperative nausea and vomiting) 017 03/03/2019 Primary osteoarthritis of right knee 06/12/2017 07/11/2017 Overview: Added automatically from request for surgery [id number] Acute pain of right knee 05/08/2017 017 [...] of this encounter (statuses as of 12/09/2021) [facility] History of Past illness Narrative* Problem Noted Date Resolved Date Tendonitis, Achilles, right 02/05/201902/13 Knee joint replacement status, right 07/10/2017 07/11/2017 PONV (postoperative nausea and vomiting) 017 03/03/2019 Primary osteoarthritis of right knee 06/12/2017 07/11/2017 Overview: Added automatically from request for surgery [id number] Acute pain of right knee 05/08/2017 017 [...] of this encounter (statuses as of 12/12/2021) [facility] History of Past illness Narrative* Problem Noted Date Resolved Date Tendonitis, Achilles, right 02/05/201902/13 Knee joint replacement status, right 07/10/2017 07/11/2017 PONV (postoperative nausea and vomiting) 017 03/03/2019 Primary osteoarthritis of right knee 06/12/2017 07/11/2017 Overview: Added automatically from request for surgery [id number] Acute pain of right knee 05/08/2017 017 [...] of this encounter (statuses as of 12/18/2021) [facility] History of Past illness Narrative* Problem Noted Date Resolved Date Tendonitis, Achilles, right 02/05/201902/13 Knee joint replacement status, right 07/10/2017 07/11/2017 PONV (postoperative nausea and vomiting) 017 03/03/2019 Primary osteoarthritis of right knee 06/12/2017 07/11/2017 Overview: Added automatically from request for surgery [id number] Acute pain of right knee 05/08/2017 017 [...] of this encounter (statuses as of 01/04/2022) [facility] History of Past illness Narrative* Problem Noted Date Resolved Date Tendonitis, Achilles, right 02/05/201902/13 Knee joint replacement status, right 07/10/2017 07/11/2017 PONV (postoperative nausea and vomiting) 017 03/03/2019 Primary osteoarthritis of right knee 06/12/2017 07/11/2017 Overview: Added automatically from request for surgery [id number] Acute pain of right knee 05/08/2017 017 [...] of this encounter (statuses as of 01/05/2022) [facility] [place] [facility] Diagnosis Depression, unspecified [facility] Diagnosis Acute left-sided low back pain with left-sided sciatica [facility] Diagnosis Acute left-sided low back pain with left-sided sciatica- Primary [facility] Diagnosis Chronic left-sided low back pain with left-sided sciatica- Primary [facility] Diagnosis Olecranon bursitis of left elbow- Primary Olecranon bursitis Acute pain of left shoulder [facility] Diagnosis Left elbow pain- Primary Pain in joint, upper arm [facility]* Diagnosis 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 Type II or unspecified type diabetes mellitus with neurological manifestations, not stated as uncontrolled Pure hypercholesterolemia Essential hypertension, benign Microalbuminuria Proteinuria Malignant neoplasm of overlapping sites of bladder (HCC) Malignant neoplasm of other specified sites of bladder GERD without esophagitis Esophageal reflux [facility]* Diagnosis Microcytosis- Primary Other abnormality of red blood cells 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) Type II or unspecified type diabetes mellitus with neurological manifestations, not stated as uncontrolled [facility] Change in bowel function- Primary Other symptoms involving digestive system Olecranon bursitis of left elbow Olecranon bursitis Screening for colon cancer Special screening for malignant neoplasms, colon [facility] Diagnosis Displacement of lumbar intervertebral disc without myelopathy- [facility] Diagnosis Displacement of lumbar intervertebral disc without myelopathy- Primary Chronic left-sided low back pain with left-sided sciatica Chronic left shoulder pain Pain in joint, shoulder region [facility] Diagnosis Controlled type 2 diabetes mellitus without complication, without long-term current use of insulin (HCC) [facility]* Diagnosis Pure hypercholesterolemia Anxiety with depression [facility]* Diagnosis Closed nondisplaced fracture of proximal phalanx of right thumb with routine healing, subsequent encounter- Primary [facility]* Diagnosis Essential hypertension, benign [facility] Diagnosis Pure hypercholesterolemia- Primary 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) Type II or unspecified type diabetes mellitus with neurological manifestations, not stated as uncontrolled Essential hypertension, benign Malignant neoplasm of overlapping sites of bladder (HCC) Malignant neoplasm of other specified sites of bladder Displacement of lumbar intervertebral disc without myelopathy Postlaminectomy syndrome, lumbar region Microalbuminuria Proteinuria [facility] Diagnosis Anxiety with depression [facility]* Diagnosis Screening mammogram for breast cancer- Primary [facility]* Diagnosis Controlled type 2 diabetes mellitus without complication, without long-term current use of insulin (HCC) [facility]* Diagnosis Essential hypertension, benign Benign paroxysmal positional vertigo, unspecified laterality GERD without esophagitis Esophageal reflux [facility]* Diagnosis Radiculopathy, lumbar region- Primary [...] to unspecified cause [facility] [place] [facility] Diagnosis Renal insufficiency- Primary Unspecified disorder of kidney and ureter [facility] [place] [facility]* Diagnosis Esophageal spasm Dyskinesia of esophagus [facility] [place] [facility] Diagnosis Esophageal spasm- Primary Dyskinesia of esophagus [facility] [place] [facility]* Diagnosis Renal insufficiency Unspecified disorder of kidney and ureter [facility] [place] [facility]* Diagnosis Anxiety with depression [facility] [place] [facility]* Diagnosis GERD without esophagitis Esophageal reflux documented in this encounter [facility] note* Diagnosis Radiculopathy, lumbar region- Primary Thoracic [...] sites of bladder [facility] [place] [facility]* Diagnosis Headache, unspecified headache type- Primary documented in this encounter [facility] for referral (narrative)* Diagnostic Procedure Only (Urgent) - Closed Specialty Diagnoses / Procedures Referred By Contac t Referred To Contact XR IMAGING Diagnoses Acute pain of left shoulder Procedures XR SHOULDER GENERAL 3V OR MORE AP/TRUE AP/OTHER LEFT RADEX SHOULDER COMPLETE MINIMUM 2 VIEWS Jessica Rivera PA-C [address] [place] [address] Xr Imaging Referral ID Status Reason Start Date Expiration Date V isits Requested Visits Authorized [id number] Closed Auto-Generate d Referral 12/09/2021 01/08/2023 1 1 * Diagnostic Procedure Only (Urgent) - Closed Specialty Diagnoses / Procedures Referred By Contac t Referred To Contact XR IMAGING Diagnoses Olecranon bursitis of left elbow Procedures XR ELBOW SPECIAL VIEWS AP/LAT/OTHER LEFT RADEX ELBOW COMPLETE MINIMUM 3 VIEWS Jessica Rivera PA-C [address] [place] [address] Xr Imaging Referral ID Status Reason Start Date Expiration Date V isits Requested Visits Authorized [id number] Closed Auto-Generate d Referral 12/09/2021 01/08/2023 1 1 [facility] for referral (narrative)* Outpatient Procedure (Routine) - Authorized Specialty Diagnoses / Procedures Referred By Contac t Referred To Contact [facility] [place] Diagnoses Heart murmur Procedures ECHO ECHO TTHRC R-T 2D W/WOM-MODE COMPL SPEC&COLR D Kathie Julian MD [address] [place] [address] [facility] [place] [address] [place] [address] Referral ID Status Reason Start Date Expiration Date Visits Requested Visits Authorized [id number] Authorized Auto-Generat ed Referral 12/13/2022 12/13/2023 1 1 [facility] for referral (narrative)* Diagnostic Procedure Only (Routine) - Closed Specialty Diagnoses / Procedures Referred By Contac Referred To Contact US IMAGING Diagnoses Renal insufficiency Procedures US KIDNEY/BLADDER US RETROPERITONEAL REAL TIME W/[place] [address] [place] [address] [place] [address] Referral ID Status Reason Start Date Expiration Date V isits Requested Visits Authorized [id number] Closed Auto-Generate d Referral 01/28/2023 02/27/2024 1 1 [facility] Summary Purpose Family History No Family History Records FoundNo Family History Records FoundNo Family History Records FoundNo Family History Records Found Advance Directives No Advanced Directives Records FoundDocuments on File Type Date Recorded Patient Porcelain Slusher Expl anation Advance Directive(s) 07/26/2021 10:03 AM [...] Documents on File Type Date Recorded Patient Porcelain Slusher Expl anation Advance Directive(s) 07/26/2021 10:03 AM Advance Directive(s) 06/30/2021 6:34 PM Advance Directive(s) 05/01/2021 8:04 AM Advance Directive(s) 02/17/2021 12:29 PM Me anned 02-17-2021 Advance Directive(s) 02/17/2021 12:26 PM Advance Directive(s) 02/02/2021 2:49 PM Advance Directive(s) 12/17/2018 12:07 PM Advance Directive(s) 09/23/2018 10:20 AM Advance Directive(s) 07/29/2018 4:37 PM Advance Directive(s) 07/10/2017 6:25 AM Advance Directive(s) 09/11/2011 12:00 AM Advance Directive(s) 09/02/2006 12:00 AM Advance Directive(s) 08/29/2006 12:00 AM Documents on File Type Date Recorded Patient Porcelain Slusher Expl anation Advance Directive(s) 02/17/2021 12:26 PM Advance Directive(s) 09/11/2011 Advance Directive(s) 09/02/2006 Advance Directive(s) 08/29/2006 Documents on File Type Date Recorded Patient Porcelain Slusher Expl anation Advance Directive(s) 02/17/2021 12:26 PM Advance Directive(s) 09/11/2011 Advance Directive(s) 09/02/2006 Advance Directive(s) 08/29/2006 Reason for Referral Specialty Diagnoses / Procedures Referred By Contac t Referred To Contact [facility] Diagnoses Acute left-sided low back pain with left-sided sciatica Procedures CONSULT TO PHYSICAL THERAPY PHYSICAL THERAPY EVALUATION HIGH COMPLEX 45 MINS Kathie Julian MD [address] [place] [address] [facility] [place] [address] [place] [address] Referral ID Status Reason Start Date Expiration Date Visits Requested Visits Authorized [id number] Authorized PCP Requested Referral Auto-Generate d Referral 10/30/2021 10/30/2022 99 99 Specialty Diagnoses / Procedures Referred By Contac t Referred To Contact Orthopedics Diagnoses Chronic left-sided low back pain with left-sided sciatica Procedures CONSULT TO ORTHOPAEDICS OFFICE/OUTPATIENT [facility] 60-74 MINUTES Jeana Mendoza APRN.DISPENSARY TECHNICIAN [address] [place] [address] Referral ID Status Reason Start Date Expiration Date Visits Requested Visits Authorized [id number] Authorized PCP Requested Referral 11/08/2021 11/08/2022 1 1 Specialty Diagnoses / Procedures Referred By Contac t Referred To Contact Pain Management Diagnoses Chronic left-sided low back pain with left-sided sciatica Procedures CONSULT TO PAIN MGT OFFICE/OUTPATIENT [facility] 60-74 MINUTES Jeana Mendoza, BENY.DISPENSARY TECHNICIAN [address] [place] [address] Referral ID Status Reason Start Date Expiration Date Visits Requested Visits Authorized [id number] Authorized PCP Requested Referral 11/08/2021 11/08/2022 1 1 Specialty Diagnoses / Procedures Referred By Contac t Referred To Contact Orthopedics Diagnoses Olecranon bursitis of left elbow Procedures CONSULT TO ORTHOPAEDICS Kathie Julian MD [address] [place] [address] Referral ID Status Reason Start Date Expiration Date Visits Requested Visits Authorized [id number] Ref Not Required PCP Requested Referral 01/18/2022 01/18/2023 1 1 Specialty Diagnoses / Procedures Referred By [place] t Referred To Contact Orthopedics Diagnoses Closed nondisplaced fracture of proximal phalanx of right thumb with routine healing, subsequent encounter Procedures CONSULT TO ORTHOPAEDICS Kathie Julian MD [address] [place] [address] Referral ID Status Reason Start Date Expiration Date Visits Requested Visits Authorized [id number] Ref Not Required PCP Requested Referral 03/23/2022 03/23/2023 1 1 Additional Source Comments INFORMATION SOURCE (unrecogn ized section and content) DATE CREATED AUTHOR AUTHOR'S ORGANIZ ATION 12/20/2018 [facility] DATE CREATED AUTHOR AUTHOR'S ORGANIZ ATION 07/28/2021 [facility] DATE CREATED AUTHOR AUTHOR'S ORGANIZ ATION 07/12/2023 [facility] Source Comments (unrecognize d section and content) In the event this informatio n is protected by the Federal Confidentiality of Alcohol and Drug Abuse Patient Records regulations: The Federal rules restrict any use of the information to criminally investigate or prosecute any alcohol or drug abuse patient.[facility] the event this information is protected by the Federal Confidentiality of Alcohol and Drug Abuse Patient Records regulations: The Federal rules restrict any use of the information to criminally investigate or prosecute any alcohol or drug abuse patient.[facility] HospitalIn the event this information is protected by the Federal Confidentiality of Alcohol and Drug Abuse Patient Records regulations: The Federal rules restrict any use of the information to criminally investigate or prosecute any alcohol or drug abuse patient.[facility] HospitalIn the event this information is protected by the Federal Confidentiality of Alcohol and Drug Abuse Patient Records regulations: The Federal rules restrict any use of the information to criminally investigate or prosecute any alcohol or drug abuse patient.[facility] HospitalIn the event this information is protected by the Federal Confidentiality of Alcohol and Drug Abuse Patient Records regulations: The Federal rules restrict any use of the information to criminally investigate or prosecute any alcohol or drug abuse patient.[facility] HospitalIn the event this information is protected by the Federal Confidentiality of Alcohol and Drug Abuse Patient Records regulations: The Federal rules restrict any use of the information to criminally investigate or prosecute any alcohol or drug abuse patient.[facility] HospitalIn the event this information is protected by the Federal Confidentiality of Alcohol and Drug Abuse Patient Records regulations: The Federal rules restrict any use of the information to criminally investigate or prosecute any alcohol or drug abuse patient.[facility] HospitalIn the event this information is protected by the Federal Confidentiality of Alcohol and Drug Abuse Patient Records regulations: The Federal rules restrict any use of the information to criminally investigate or prosecute any alcohol or drug abuse patient.[facility] HospitalIn the event this information is protected by the Federal Confidentiality of Alcohol and Drug Abuse Patient Records regulations: The Federal rules restrict any use of the information to criminally investigate or prosecute any alcohol or drug abuse patient.[facility] HospitalIn the event this information is protected by the Federal Confidentiality of Alcohol and Drug Abuse Patient Records regulations: The Federal rules restrict any use of the information to criminally investigate or prosecute any alcohol or drug abuse patient.[facility] HospitalIn the event this information is protected by the Federal Confidentiality of Alcohol and Drug Abuse Patient Records regulations: The Federal rules restrict any use of the information to criminally investigate or prosecute any alcohol or drug abuse patient.[facility] HospitalIn the event this information is protected by the Federal Confidentiality of Alcohol and Drug Abuse Patient Records regulations: The Federal rules restrict any use of the information to criminally investigate or prosecute any alcohol or drug abuse patient.[facility] HospitalIn the event this information is protected by the Federal Confidentiality of Alcohol and Drug Abuse Patient Records regulations: The Federal rules restrict any use of the information to criminally investigate or prosecute any alcohol or drug abuse patient.[facility] HospitalIn the event this information is protected by the Federal Confidentiality of Alcohol and Drug Abuse Patient Records regulations: The Federal rules restrict any use of the information to criminally investigate or prosecute any alcohol or drug abuse patient.[facility] HospitalIn the event this information is protected by the Federal Confidentiality of Alcohol and Drug Abuse Patient Records regulations: The Federal rules restrict any use of the information to criminally investigate or prosecute any alcohol or drug abuse patient.[facility] HospitalIn the event this information is protected by the Federal Confidentiality of Alcohol and Drug Abuse Patient Records regulations: The Federal rules restrict any use of the information to criminally investigate or prosecute any alcohol or drug abuse patient.[facility] HospitalIn the event this information is protected by the Federal Confidentiality of Alcohol and Drug Abuse Patient Records regulations: The Federal rules restrict any use of the information to criminally investigate or prosecute any alcohol or drug abuse patient.[facility] HospitalIn the event this information is protected by the Federal Confidentiality of Alcohol and Drug Abuse Patient Records regulations: The Federal rules restrict any use of the information to criminally investigate or prosecute any alcohol or drug abuse patient.[facility] HospitalIn the event this information is protected by the Federal Confidentiality of Alcohol and Drug Abuse Patient Records regulations: The Federal rules restrict any use of the information to criminally investigate or prosecute any alcohol or drug abuse patient.[facility] HospitalIn the event this information is protected by the Federal Confidentiality of Alcohol and Drug Abuse Patient Records regulations: The Federal rules restrict any use of the information to criminally investigate or prosecute any alcohol or drug abuse patient.[facility] HospitalIn the event this information is protected by the Federal Confidentiality of Alcohol and Drug Abuse Patient Records regulations: The Federal rules restrict any use of the information to criminally investigate or prosecute any alcohol or drug abuse patient.[facility] HospitalIn the event this information is protected by the Federal Confidentiality of Alcohol and Drug Abuse Patient Records regulations: The Federal rules restrict any use of the information to criminally investigate or prosecute any alcohol or drug abuse patient.[facility] HospitalIn the event this information is protected by the Federal Confidentiality of Alcohol and Drug Abuse Patient Records regulations: The Federal rules restrict any use of the information to criminally investigate or prosecute any alcohol or drug abuse patient.[facility] HospitalIn the event this information is protected by the Federal Confidentiality of Alcohol and Drug Abuse Patient Records regulations: The Federal rules restrict any use of the information to criminally investigate or prosecute any alcohol or drug abuse patient.[facility] HospitalIn the event this information is protected by the Federal Confidentiality of Alcohol and Drug Abuse Patient Records regulations: The Federal rules restrict any use of the information to criminally investigate or prosecute any alcohol or drug abuse patient.[facility] HospitalIn the event this information is protected by the Federal Confidentiality of Alcohol and Drug Abuse Patient Records regulations: The Federal rules restrict any use of the information to criminally investigate or prosecute any alcohol or drug abuse patient.[facility] HospitalIn the event this information is protected by the Federal Confidentiality of Alcohol and Drug Abuse Patient Records regulations: The Federal rules restrict any use of the information to criminally investigate or prosecute any alcohol or drug abuse patient.[facility] HospitalIn the event this information is protected by the Federal Confidentiality of Alcohol and Drug Abuse Patient Records regulations: The Federal rules restrict any use of the information to criminally investigate or prosecute any alcohol or drug abuse patient.[facility] HospitalIn the event this information is protected by the Federal Confidentiality of Alcohol and Drug Abuse Patient Records regulations: The Federal rules restrict any use of the information to criminally investigate or prosecute any alcohol or drug abuse patient.[facility] HospitalIn the event this information is protected by the Federal Confidentiality of Alcohol and Drug Abuse Patient Records regulations: The Federal rules restrict any use of the information to criminally investigate or prosecute any alcohol or drug abuse patient.[facility] HospitalIn the event this information is protected by the Federal Confidentiality of Alcohol and Drug Abuse Patient Records regulations: The Federal rules restrict any use of the information to criminally investigate or prosecute any alcohol or drug abuse patient.[facility] HospitalIn the event this information is protected by the Federal Confidentiality of Alcohol and Drug Abuse Patient Records regulations: The Federal rules restrict any use of the information to criminally investigate or prosecute any alcohol or drug abuse patient.[facility] HospitalIn the event this information is protected by the Federal Confidentiality of Alcohol and Drug Abuse Patient Records regulations: The Federal rules restrict any use of the information to criminally investigate or prosecute any alcohol or drug abuse patient.[facility] HospitalIn the event this information is protected by the Federal Confidentiality of Alcohol and Drug Abuse Patient Records regulations: The Federal rules restrict any use of the information to criminally investigate or prosecute any alcohol or drug abuse patient.[facility] HospitalIn the event this information is protected by the Federal Confidentiality of Alcohol and Drug Abuse Patient Records regulations: The Federal rules restrict any use of the information to criminally investigate or prosecute any alcohol or drug abuse patient.[facility] HospitalIn the event this information is protected by the Federal Confidentiality of Alcohol and Drug Abuse Patient Records regulations: The Federal rules restrict any use of the information to criminally investigate or prosecute any alcohol or drug abuse patient.[facility] HospitalIn the event this information is protected by the Federal Confidentiality of Alcohol and Drug Abuse Patient Records regulations: The Federal rules restrict any use of the information to criminally investigate or prosecute any alcohol or drug abuse patient.[facility] HospitalIn the event this information is protected by the Federal Confidentiality of Alcohol and Drug Abuse Patient Records regulations: The Federal rules restrict any use of the information to criminally investigate or prosecute any alcohol or drug abuse patient.[facility] HospitalIn the event this information is protected by the Federal Confidentiality of Alcohol and Drug Abuse Patient Records regulations: The Federal rules restrict any use of the information to criminally investigate or prosecute any alcohol or drug abuse patient.[facility] HospitalIn the event this information is protected by the Federal Confidentiality of Alcohol and Drug Abuse Patient Records regulations: The Federal rules restrict any use of the information to criminally investigate or prosecute any alcohol or drug abuse patient.[facility] HospitalIn the event this information is protected by the Federal Confidentiality of Alcohol and Drug Abuse Patient Records regulations: The Federal rules restrict any use of the information to criminally investigate or prosecute any alcohol or drug abuse patient.[facility] HospitalIn the event this information is protected by the Federal Confidentiality of Alcohol and Drug Abuse Patient Records regulations: The Federal rules restrict any use of the information to criminally investigate or prosecute any alcohol or drug abuse patient.[facility] HospitalIn the event this information is protected by the Federal Confidentiality of Alcohol and Drug Abuse Patient Records regulations: The Federal rules restrict any use of the information to criminally investigate or prosecute any alcohol or drug abuse patient.[facility] HospitalIn the event this information is protected by the Federal Confidentiality of Alcohol and Drug Abuse Patient Records regulations: The Federal rules restrict any use of the information to criminally investigate or prosecute any alcohol or drug abuse patient.[facility] HospitalIn the event this information is protected by the Federal Confidentiality of Alcohol and Drug Abuse Patient Records regulations: The Federal rules restrict any use of the information to criminally investigate or prosecute any alcohol or drug abuse patient.[facility] HospitalIn the event this information is protected by the Federal Confidentiality of Alcohol and Drug Abuse Patient Records regulations: The Federal rules restrict any use of the information to criminally investigate or prosecute any alcohol or drug abuse patient.[facility] HospitalIn the event this information is protected by the Federal Confidentiality of Alcohol and Drug Abuse Patient Records regulations: The Federal rules restrict any use of the information to criminally investigate or prosecute any alcohol or drug abuse patient.[facility] HospitalIn the event this information is protected by the Federal Confidentiality of Alcohol and Drug Abuse Patient Records regulations: The Federal rules restrict any use of the information to criminally investigate or prosecute any alcohol or drug abuse patient.[facility] HospitalIn the event this information is protected by the Federal Confidentiality of Alcohol and Drug Abuse Patient Records regulations: The Federal rules restrict any use of the information to criminally investigate or prosecute any alcohol or drug abuse patient.[facility] HospitalIn the event this information is protected by the Federal Confidentiality of Alcohol and Drug Abuse Patient Records regulations: The Federal rules restrict any use of the information to criminally investigate or prosecute any alcohol or drug abuse patient.[facility] HospitalIn the event this information is protected by the Federal Confidentiality of Alcohol and Drug Abuse Patient Records regulations: The Federal rules restrict any use of the information to criminally investigate or prosecute any alcohol or drug abuse patient.[facility] HospitalIn the event this information is protected by the Federal Confidentiality of Alcohol and Drug Abuse Patient Records regulations: The Federal rules restrict any use of the information to criminally investigate or prosecute any alcohol or drug abuse patient.[facility] HospitalIn the event this information is protected by the Federal Confidentiality of Alcohol and Drug Abuse Patient Records regulations: The Federal rules restrict any use of the information to criminally investigate or prosecute any alcohol or drug abuse patient.[facility] HospitalIn the event this information is protected by the Federal Confidentiality of Alcohol and Drug Abuse Patient Records regulations: The Federal rules restrict any use of the information to criminally investigate or prosecute any alcohol or drug abuse patient.[facility] HospitalIn the event this information is protected by the Federal Confidentiality of Alcohol and Drug Abuse Patient Records regulations: The Federal rules restrict any use of the information to criminally investigate or prosecute any alcohol or drug abuse patient.[facility] HospitalIn the event this information is protected by the Federal Confidentiality of Alcohol and Drug Abuse Patient Records regulations: The Federal rules restrict any use of the information to criminally investigate or prosecute any alcohol or drug abuse patient.[facility] Reason for Visit (unrecogniz ed section and content) Reason Onset Date Comments Refill Request 10/20/2021 Reason Comments PT Eval Patient Education Specialty Diagnoses / Procedures Referred By Orlando t Referred To Contact [facility] Diagnoses Acute left-sided low back pain with left-sided sciatica Procedures CONSULT TO PHYSICAL THERAPY PHYSICAL THERAPY EVALUATION HIGH COMPLEX 45 MINS Kathie Julian MD [address] [place] [address] [facility] [address] [place] [address] Referral ID Status Reason Start Date Expiration Date Visits Requested Visits Authorized [id number] Authorized PCP Requested Referral Auto-Generate d Referral [...] esophageal spasm s Reason Comments ER F/U [facility] ER 02/18/23 dx: ab d pain Reason Onset Date Comments Refill Request 03/07/2023 Reason Comments Radiology US Specialty Diagnoses / Procedures Referred By Orlando t Referred To Contact [facility] Diagnoses Renal insufficiency Procedures US KIDNEY/BLADDER US RETROPERITONEAL REAL TIME W/IMAGE COMPLETE Kathie Julian MD [address] [place] [address] [place] [address] Referral ID Status Reason Start Date Expiration Date V isits Requested Visits Authorized [id number] Closed Auto-Generate d Referral 01/28/2023 02/27/2024 1 1 Reason Onset Date Comments Refill Request 05/22/2023 Reason Comments Medication Request Reason Onset Date Comments Refill Request 06/05/2023 Reason Comments 6 Month Exam Reason Comments Patient Update Patient Question Medication Problem [facility] Teams (unrecognized sec tion and content) Chain Puller Relationship Specialty Start Date End Date Kathie Julian MD [address] [place] [address] PCP - General Family Practice 12/07/15 Chain Puller Relationship Specialty Start Date End Date Kathie Julian MD [address] [place] [id number] PCP - General Family Practice 12/07/15 Chain Puller Relationship Specialty Start Date End Date Kathie Julian MD [address] [place] [address] PCP - General Family Practice 12/07/15 Chain Puller Relationship Specialty Start Date End Date Kathie Julian MD [address] [place] [address] PCP - General Family Practice 12/07/15 Chain Puller Relationship Specialty Start Date End Date Kathie Julian MD [address] [place] [address] PCP - General Family Practice 12/07/15 Chain Puller Relationship Specialty Start Date End Date Kathie Julian MD [address] [place] [address] PCP - General Family Practice 12/07/15 Chain Puller Relationship Specialty Start Date End Date Kathie Julian MD [address] [facility] [place] [address] PCP - General Family Practice 12/07/15 Chain Puller Relationship Specialty Start Date End Date Kathie Julian MD [address] [facility] [place] [address] PCP - General Family Practice 12/07/15 Chain Puller Relationship Specialty Start Date End Date Kathie Julian MD [address] [facility] [place] [address] PCP - General Family Practice 12/07/15 Chain Puller Relationship Specialty Start Date End Date Kathie Julian MD [address] [facility] [place] [address] PCP - General Family Practice 12/07/15 Chain Puller Relationship Specialty Start Date End Date Kathie Julian MD [address] [facility] [place] [address] PCP - General Family Practice 12/07/15 Chain Puller Relationship Specialty Start Date End Date Kathie Julian MD [address] [facility] [place] [address] PCP - General Family Practice 12/07/15 Chain Puller Relationship Specialty Start Date End Date Kathie Julian MD [address] [facility] [place] [address] PCP - General Family Practice 12/07/15 Chain Puller Relationship Specialty Start Date End Date Kathie Julian MD [address] [facility] [place] [address] PCP - General Family Practice 12/07/15 Chain Puller Relationship Specialty Start Date End Date Kathie Julian MD [address] [facility] [place] [address] PCP - General Family Medicine 12/07/15 Chain Puller Relationship Specialty Start Date End Date Kathie Julian MD [address] [facility] [place] [address] PCP - General Family Medicine 12/07/15 Chain Puller Relationship Specialty Start Date End Date Kathie Julian MD [address] [facility] [place] [address] PCP - General Family Medicine 12/07/15 Chain Puller Relationship Specialty Start Date End Date Kathie Julian MD [address] [facility] [place] [address] PCP - General Family Medicine 12/07/15 Chain Puller Relationship Specialty Start Date End Date Kathie Julian MD [address] [facility] [place] [address] PCP - General Family Medicine 12/07/15 Chain Puller Relationship Specialty Start Date End Date Kathie Julian MD [address] [facility] [place] [address] PCP - General Family Medicine 12/07/15 Chain Puller Relationship Specialty Start Date End Date Kathie Julian MD [address] [place] [place] [address] PCP - General Family Medicine 12/07/15 Chain Puller Relationship Specialty Start Date End Date Kathie Julian MD [address] [facility] [place] [address] PCP - General Family Medicine 12/07/15 Chain Puller Relationship Specialty Start Date End Date Kathie Julian MD [address] [facility] [place] [address] PCP - General Family Medicine 12/07/15 Chain Puller Relationship Specialty Start Date End Date Kathie Julian MD [address] [facility] [place] [address] PCP - General Family Medicine 12/07/15 Chain Puller Relationship Specialty Start Date End Date Kathie Julian MD [address] [place] [place] [address] PCP - General Family Medicine 12/07/15 Chain Puller Relationship Specialty Start Date End Date Kathie Julian MD [address] [place] [place] [address] PCP - General Family Medicine 12/07/15 Chain Puller Relationship Specialty Start Date End Date Kathie Julian MD [address] [place] [place] [address] PCP - General Family Medicine 12/07/15 Chain Puller Relationship Specialty Start Date End Date Kathie Julian MD [address] [facility] [place] [address] PCP - General Family Medicine 12/07/15 Chain Puller Relationship Specialty Start Date End Date Kathie Julian MD [address] [facility] [place] [address] PCP - General Family Medicine 12/07/15 Chain Puller Relationship Specialty Start Date End Date Kathie Julian MD [address] [place] [place] [address] PCP - General Family Medicine 12/07/15 Chain Puller Relationship Specialty Start Date End Date Kathie Julian MD [address] [facility] [place] [address] PCP - General Family Medicine 12/07/15 Chain Puller Relationship Specialty Start Date End Date Kathie Julian MD [address] [place] [address] PCP - General Family Medicine 12/07/15 Chain Puller Relationship Specialty Start Date End Date Kathie uJlian MD [address] [place] [address] PCP - General Family Medicine 12/07/15 FOR [...] BE BASED ON THE PRIMARY CLINICAL RECORDS. [employer] provides no warranty or guarantee of the accuracy or completeness of information in this document.
[2023-08-05] MEDS: Morphine 2 MG/ML Syringe 1 MG IV (02:44)
[2023-08-05 02:58] VITALS: BP 136/73; PULSE 67; RESP 16; TEMP 36.8; O2SAT 98
[2023-08-05 02:59] VITALS: BMI 22.8
[2023-08-05] MEDS: Lactulose 20 GM/30 ML UDC 30 GM PO (03:34)
[2023-08-05] MEDS: Lactated Ringers 1,000 ML 75 ML IV ×2 (03:35→17:56)
[2023-08-05] MEDS: Piperacil/Tazobactam 3.375 GM in 0.9% Normal Saline (50mL MB+) 50 ML IV ×2 (03:42→13:09)
[2023-08-05 06:00] VITALS: BMI 22.8
[2023-08-05 06:31] LABS: Absolute Lymphocyte Count 2.25 X10^3/uL (0.83-4.51); Absolute Neutrophil Count 6.7 X10^3/uL (2.0-7.7); Basophil# 0.03 X10^3/uL; Basophil% 0.3 % (0-1); Eosinophil# 0.19 X10^3/uL; Eosinophils% 1.9 % (0-5); Hematocrit 37.3 % (37-47); Hemoglobin 11.9 g/dL (12.0-15.0); Lymphocyte # 2.25 X10^3/ul (0.83-4.51); Lymphocyte % 22.3 % (19-41); Mean Corp Hgb Conc 31.9 g/dL (32-36); Mean Corpuscular Hgb 25.2 pg (27.0-32.0); Mean Corpuscular Volume 78.9 fL (81-99); Monocyte# 0.87 X10^3/uL; Monocyte% 8.6 % (0-10); NRBC Flagged by Analyzer 0 % (0-5); Neutrophil % 66.4 % (47-70); Platelet Count 178 K/mm3 (150-450); RBC Distribution Width CV 15.6 % (11.6-14.6); RBC Distribution Width SD 44.6 fl (35.1-43.9); Red Blood Count 4.73 M/mm3 (4.2-5.4); White Blood Count 10.1 K/mm3 (4.4-11.0)
[2023-08-05 06:59] LABS: ALB/GLOB Ratio 0.9 RATIO (0.9-2.4); AST(SGOT) 18 U/L (15-37); Alanine Aminotransfer ALT/SGPT 19 U/L (13-56); Albumin, Serum 3.2 g/dL (3.2-5.0); Alkaline Phosphatase 80 U/L (45-117); Anion Gap 6 (5-15); BUN 17 mg/dL (7-18); BUN/Creat Ratio 14.4 RATIO (10-20); Chloride 106 mmol/L (98-107); Creatinine, Serum 1.18 mg/dL (0.55-1.02); EST Glomerular Filtration Rate 47 mL/min (>60); Est Glom Filt Rate - Afr Amer 56 mL/min (>60); Estimated Creatinine Clearance 30.41 ml/min; Globulin 3.4 g/dL (2.2-4.2); Glucose 165 mg/dL (74-106); Magnesium 2.8 mg/dL (1.6-2.6); Phosphorus 2.9 mg/dL (2.5-4.9); Potassium 3.8 mmol/L (3.5-5.1); Protein, Total 6.6 g/dL (6.4-8.2); Sodium Level 138 mmol/L (136-145); Thyroid Stim Hormone (TSH) 2.74 uIU/mL (0.358-3.74)
--- NOTE | 2023-08-05 08:04 | PN.HOSP_ITS ---
Reason for Visit Reason for Visit: Diagnoses Constipation, unspecified (08/05/23) Other specified diseases of anus and rectum (08/05/23) Unspecified fracture of sacrum, initial encounter for closed fracture (08/05/23) Objective Data Objective Data Vital Signs: Vital Signs Temp Pulse Resp BP Pulse Ox O2 Del Method 98.3 F 67 16 136/73 H 98 Room Air 08/05/23 02:58 08/05/23 02:58 08/05/23 02:58 08/05/23 02:58 08/05/23 02:58 08/05/23 02:58 Oxygen Delivery Method Room Air Weight: 128 lb 15.527 oz Body Mass Index (BMI) 22.8 Intake & Output: Intake and Output for Last 24 Hours 08/03/23 08/04/23 08/05/23 23:59 23:59 23:59 Intake Total 500 / 500 250 / 250 Balance 500 / 500 250 / 250 Lab / Micro Data 08/05/23 05:52 08/05/23 05:52 Labs: Laboratory Results - last 24 hr 08/04/23 20:25: WBC 13.9 H, RBC 5.02, Hgb 12.9, Hct 40.9, MCV 81.5, MCH 25.7 L, MCHC 31.5 L, RDW Std Deviation 45.8 H, RDW Coeff of Finesse 15.4 H, Plt Count 193, MPV 11.6, Immature Gran % (Auto) 0.500, Neut % (Auto) 78.5 H, Lymph % (Auto) 13.1 L, [place] % (Auto) 6.4, Eos % (Auto) 1.4, Baso % (Auto) 0.1, Absolute Neuts (auto) 10.9 H, Absolute Lymphs (auto) 1.81, Nucleated RBC % 0, Sodium 136, Potassium 3.7, Chloride 99, Carbon Dioxide 30.0, Anion Gap 7, BUN 22 H, Cre atinine 1.30 H, Estim Creat Clear Calc 27.60, Est GFR (MDRD) Af Amer 50 L, Est GFR (MDRD) Non-Af 42 L, BUN/Creatinine Ratio 16.9, Glucose 233 H, Calcium 9.7, Total Bilirubin 0.90, AST 18, ALT 22, Alkaline Phosphatase 92, Total Protein 7.2, Albumin 3.5, Globulin 3.7, Albumin/Globulin Ratio 0.9, Lipase 60 08/04/23 22:45: Urine Color Yellow, Urine Clarity Clear, Urine pH 8.0, Ur Specific [place] 1.010, Urine Protein 15 H, Urine Glucose (UA) 1000 H, Urine Ketones Negative, Urine Occult Blood Negative, Urine Nitrite Negative, Urine Bilirubin Negative, Urine Urobilinogen Normal, Ur Leukocyte Esterase Negative, Urine RBC 0 SEEN, Urine WBC 0-5 SEEN, Ur Squamous Epith Cells 0-5 SEEN, Urine Bacteria 0 SEEN, Urine Mucus 0 SEEN 08/05/23 05:52: WBC 10.1, RBC 4.73, Hgb 11.9 L, Hct 37.3, MCV 78.9 L, MCH 25.2 L , MCHC 31.9 L, RDW Std Deviation 44.6 H, RDW Coeff of Finesse 15.6 H, Plt Count 178, MPV 12.0, Immature Gran % (Auto) 0.500, Neut % (Auto) 66.4, Lymph % (Auto) 22.3, [place] % (Auto) 8.6, Eos % (Auto) 1.9, Baso % (Auto) 0.3, Absolute Neuts (auto) 6.7, Absolute Lymphs (auto) 2.25, Nucleated RBC % 0, Sodium 138, Potassium 3.8, Chloride 106, Carbon Dioxide 26.0, Anion Gap 6, BUN 17, Creatinine 1.18 H, Estim Creat Clear Calc 30.41, Est GFR (MDRD) Af Amer 56 L, Est GFR (MDRD) Non-Af 47 L, BUN/Creatinine Ratio 14.4, Glucose 165 H, Calcium 9.0, Phosphorus 2.9, Magnesium 2.8 H, Total Bilirubin 1.10 H, AST 18, ALT 19, Alkaline Phosphatase 80, Total Protein 6.6, Albumin 3.2, Globulin 3.4, Albumin/Globulin Ratio 0.9, TSH 2.74 Radiography Diagnostic Testing: Radiology Impression Abdomen/Pelvis CT 08/04/23 20:12 IMPRESSION: Constipation. Question severe distal proctitis versus rectal lesion/neoplasm not excluded. Correlation with physical exam recommended. Stable hypoattenuated linear density most compatible with benign process. Status post cholecystectomy. Mild hiatal hernia. Question minimal right hydronephrosis and hydroureter with etiology indeterminate. A distal stricture, lesion along the ureter or urinary bladder cannot be excluded, versus recently passed stone. Clinical correlation recommended. Electronically Signed: Ammy Hamm MD at 22:12 EST , Lumbar Spine CT 08/04/23 20:25 IMPRESSION: Fracture of S3 vertebral body and possible S2 with fracture of the S2 posterior elements/spinous process. 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 No acute fracture or subluxation of the lumbar spine. Electronically Signed: Ammy Hamm MD at 22:02 EST , Physical Exam Narrative Seen and examined. Patient complains of lower back pain in sacral region. Patient had fall on her buttock. She is also constipated but denies any rectal pain or rectal bleeding. She said ED physician did rectal exam and said fecal impaction. After some time patient had large bowel movement liquid bowel movement. She had colonoscopy few years ago and was normal as per the patient. Physical exam General: Alert, Oriented x3, Cooperative HEENT: Atraumatic, PERRLA, EOMI, Normocephalic Oral: No Gingival or Mucosal Lesions/ Ulcerations Neck: Supple, No JVD, Negative Carotid Bruits Lungs: Air entry diminished in bilateral lung bases. No crepitation/rhonchi Cardiovascular: Regular rate, Regular Rhythm, Normal S1, Normal S2, No murmurs Abdomen: Bowel Sounds Present, Soft, Non Tender, Non-Distended : No renal angle tenderness. No suprapubic tenderness. Extremities: No edema, Capillary Refill Less than 3 Seconds Skin: No rashes, No breakdown Musculoskeletal: Tenderness about sacral region. Hard time in rolling lateral or prone position. No Tenderness to Palpation of Joints or Extremities Neurological: Cranial nerves II-XII grossly intact, DTR 2+/4. No acute focal neurological deficit. Psych/Mental Status: Normal Affect, Appropriate. Assessment & Plan Assessment/Plan (1) Proctitis: (2) Sacral fracture: QUALIFIERS: Encounter type: initial encounter Fracture type: closed Zone of sacrum fracture: unspecified portion of sacrum Qualified Code(s): S32.10XA - Unspecified fracture of sacrum, initial encounter for closed fracture (3) Constipation: QUALIFIERS: Constipation type: unspecified constipation type Qualified Code(s): K59.00 - Constipation, unspecified PLAN: Plan The patient was admitted after fall. Patient admitted to general [facility] floor. 1. Fall and Fracture of S3 vertebral body & possible S2 with Fracture of the posterior elements/spinous processes after a recent Mechanical Fall due to osteoarthritis; of the left hip and chronic back pain with sciatica; s/p L3-L4 laminectomy - PT/OT to consult and treat. Patient has listed anaphylactic allergy to Tylenol so this agent should be avoided. Fracture of S3 vertebral body and possible S2 with fracture of the S2 posterior elements/spinous process. 2. CT showing suspicion of distal proctitis: As per the patient there was no rectal tenderness or rectal bleeding. She had rectal exam by by ED physician and fecal impaction was found. She had good bowel movement soft to liquid on floor before enema was given. As per the patient she had colonoscopy which was benign few years ago therefore I hardly suspect neoplasm. Will discontinue the antibiotic and monitor off antibiotic. 3. [id number] constipation exacerbated by fall/sacral fracture with associated abdominal pain, nausea and vomiting - Give Lactulose 30 cc po once along with MiraLAX 17 g daily. 4. History of GI bleed followed by Dr. Rich of gastroenterology - Noted. 5. History of dementia; mild - 6. Essential hypertension - Continue home regimen plus give prn IV Hydralazine for systolic blood pressure > 160 mm Hg. 7. Hyperlipidemia - Resume statin as previous. 8. Diabetes mellitus type 2; of unknown control - NPO for now with potential colonoscopy. FSBS q. 6 hours plus lowest intensity SSI. 9. Peripheral neuropathy - Noted. 10. History of BPPV; on prn meclizine - Continue prn meclizine. 11. Depression - Resume home medications. 12. History of aortic stenosis - Noted. 13. Overactive bladder - Stable. 14. DVT prophylaxis - SCD's only with possible pending GI procedure. Clinical Impression(s) from Imaging Studies Abdomen/Pelvis CT 08/04/23 20:12 IMPRESSION: Constipation. Question severe distal proctitis versus rectal lesion/neoplasm not excluded. Correlation with physical exam recommended. Stable hypoattenuated linear density most compatible with benign process. Status post cholecystectomy. Mild hiatal hernia. Question minimal right hydronephrosis and hydroureter with etiology indeterminate. A distal stricture, lesion along the ureter or urinary bladder cannot be excluded, versus recently passed stone. Clinical correlation recommended. Electronically Signed: Ammy Hamm MD at 22:12 EST , Lumbar Spine CT 08/04/23 20:25 IMPRESSION: Fracture of S3 vertebral body and possible S2 with fracture of the S2 posterior elements/spinous process. 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 No acute fracture or subluxation of the lumbar spine. Charges/Coding Visit Charges Inpatient E&M: 80183 Subs Hosp L2
[2023-08-05 08:26] VITALS: O2SAT 98
[2023-08-05 10:01] VITALS: BP 122/67; PULSE 63; RESP 16; TEMP 36.8; O2SAT 94
[2023-08-05] MEDS: amLODIPine 10 MG Tablet PO (10:06)
[2023-08-05] MEDS: Losartan Potassium 100 MG Tablet PO (10:06)
[2023-08-05] MEDS: hydroCHLOROthiazide 12.5mg 12.5 MG PO (10:06)
[2023-08-05] MEDS: Calcium Carb/Vitamin D 1 TABLET Tablet PO (10:06)
[2023-08-05] MEDS: Fluoxetine HCl 40 MG CAPSULE PO (10:07)
[2023-08-05] MEDS: buPROPion (XL) 150 MG TABLET.XL PO (10:08)
--- NOTE | 2023-08-05 11:24 | CASEMGMT ---
Discharge Planning Updates faxed to [facility]. Hattie Mayen, Discharge Planning Asst.
--- NOTE | 2023-08-05 11:37 | CASEMGMT ---
Social Work [facility] KUMAR spoke w/d/c cyber policy and strategy planner Hattie, she sent updates. JANELLE spoke w/daughter/POA Amara Kaplan. She confirms plan will be for pt to return to [place], if they are able to take pt back, when pt is ready. JANELLE will continue to follow. PAPO King
[2023-08-05] MEDS: Flu Vacc QS2023-24(65YR UP)/PF 240 MCG/0.7 ML Syringe IM (13:10)
[2023-08-05 16:00] VITALS: BP 129/72; PULSE 63; RESP 18; TEMP 37; O2SAT 96
--- NOTE | 2023-08-05 16:08 | CHAPLAIN ---
Type of Pastoral Visit _x__ Initial Visit ___ Follow-up Visit ___ On-call Visit ___ General Patient Visit ___ Spiritual Assessment ___ Family Conference ___ Bereavement ___ Rapid Response ___ Code Blue ___ Other (describe below) Pastoral Care Referral From _x__ Patient ___ Family ___ Nurse ___ Physician ___ Work Force Advisor ___ Consultant Internship ___ Other (describe below) Sacrament/Intervention _x__ Active listening ___ Anointing ___ Temple ___ Bereavement ___ Communion _x__ Susi exploration ___ _x__ Life review _x__ Prayer ___ Reconciliation ___ Sacrament of Sick _x__ Supportive presence ___ Wedding ___ Other (describe below) Pastoral Comments patient is very talkative and time is given to listen to her life story, recent events, fears, and things unsettling to her; pt has had memory lapses and she is concerned about the future; pt is and she also dwells on that and how she has learned to face the new situation; pt does have family support and a strong connection to a methodist; pt has moved to [place] and accepts the reality of her circumstances with dmitri and susi; presence and prayers were welcomed
[2023-08-05 20:59] VITALS: BP 130/62; PULSE 62; RESP 16; TEMP 36.9; O2SAT 94
[2023-08-05] MEDS: Tolterodine Tartrate 2 MG CAP.SA PO (20:59)
[2023-08-05] MEDS: Atorvastatin Calcium 40 MG Tablet PO (20:59)
[2023-08-06] MEDS: MELATONIN 3 MG TABLET PO (00:28)
[2023-08-06 01:38] VITALS: BMI 22.9
[2023-08-06 05:41] VITALS: BP 152/60; PULSE 55; RESP 16; TEMP 36.6; O2SAT 96
[2023-08-06] MEDS: Meclizine 12.5 MG Tablet PO (05:49)
[2023-08-06] MEDS: Lactated Ringers 1,000 ML 75 ML IV (06:40)
[2023-08-06 06:53] LABS: Absolute Lymphocyte Count 2.05 X10^3/uL (0.83-4.51); Absolute Neutrophil Count 3.8 X10^3/uL (2.0-7.7); Basophil# 0.03 X10^3/uL; Basophil% 0.4 % (0-1); Eosinophil# 0.21 X10^3/uL; Hematocrit 37.2 % (37-47); Hemoglobin 11.9 g/dL (12.0-15.0); Lymphocyte # 2.05 X10^3/ul (0.83-4.51); Lymphocyte % 29.8 % (19-41); Mean Corpuscular Hgb 25.5 pg (27.0-32.0); Mean Corpuscular Volume 79.7 fL (81-99); Mean Platelet Vol. 11.4 fl (6.2-12.0); Monocyte# 0.76 X10^3/uL; NRBC Flagged by Analyzer 0 % (0-5); Neutrophil % 55.2 % (47-70); Platelet Count 167 K/mm3 (150-450); RBC Distribution Width CV 15.8 % (11.6-14.6); RBC Distribution Width SD 45.2 fl (35.1-43.9); Red Blood Count 4.67 M/mm3 (4.2-5.4); White Blood Count 6.9 K/mm3 (4.4-11.0)
[2023-08-06 07:10] VITALS: O2SAT 96
[2023-08-06 07:18] LABS: Anion Gap 5 (5-15); BUN 10 mg/dL (7-18); BUN/Creat Ratio 10.7 RATIO (10-20); Chloride 106 mmol/L (98-107); Creatinine, Serum 0.93 mg/dL (0.55-1.02); EST Glomerular Filtration Rate 61 mL/min (>60); Est Glom Filt Rate - Afr Amer 74 mL/min (>60); Estimated Creatinine Clearance 38.58 ml/min; Glucose 153 mg/dL (74-106); Potassium 3.8 mmol/L (3.5-5.1); Sodium Level 138 mmol/L (136-145)
[2023-08-06 08:46] VITALS: BP 151/65; PULSE 59; RESP 16; TEMP 36.9; O2SAT 95
[2023-08-06 08:49] VITALS: PULSE 58
[2023-08-06] MEDS: Losartan Potassium 100 MG Tablet PO (08:52)
[2023-08-06] MEDS: Calcium Carb/Vitamin D 1 TABLET Tablet PO (08:53)
[2023-08-06] MEDS: Fluoxetine HCl 40 MG CAPSULE PO (08:53)
[2023-08-06] MEDS: hydroCHLOROthiazide 12.5mg 12.5 MG PO (08:53)
[2023-08-06] MEDS: amLODIPine 10 MG Tablet PO (08:54)
[2023-08-06] MEDS: buPROPion (XL) 150 MG TABLET.XL PO (08:55)
--- NOTE | 2023-08-06 10:14 | PN.GI_ITS ---
Subjective Subjective Patient states that she feels a lot better and is having more bowel movements than previously. It was thought that she possibly had worsening constipation secondary to narcotics that she received from a recent sacral fracture. She states that she wants to go and she is feeling a lot better. She does not want to have a colonoscopy to look at the abnormality seen on the CT scan of the abdomen pelvis. Objective Data Objective Data Vital Signs: Vital Signs Temp Pulse Resp BP Pulse Ox O2 Del Method O2 Flow Rate 98.4 F 58 L 16 151/65 H 95 Room Air 6 08/06/23 08:46 08/06/23 08:49 08/06/23 08:46 08/06/23 08:46 08/06/23 08:46 08/06/23 08:49 08/06/23 03:04 Oxygen Flow Rate (L/min) 6 Oxygen Delivery Method Room Air Weight: 129 lb 6.581 oz Body Mass Index (BMI) 22.9 Intake & Output: Intake and Output for Last 24 Hours 08/04/23 08/05/23 08/06/23 23:59 23:59 23:59 Intake Total 500 / 500 1750 / 1950 1255 / 1255 Balance 500 / 500 1750 / 1950 1255 / 1255 Medical Nutrition Assessment Dietitian: Malnutrition Criteria Met Start: 08/05/23 14:39 Freq: Status: Active Protocol: Document 08/05/23 14:39 SLA (Rec: 08/05/23 14:39 SLA Desktop) Nutrition Malnutrition Evidence of Malnutrition Exists Yes Malnutrition (severe): Acute Illness/Injury Evidenced By Suboptimal Energy Intake ( Severe),Weight Loss (Severe) Clinical Problem Acute Disease or Injury Related Malnutrition Etiology related to acute illness and inadequate energy intake Signs/Symptoms as evidenced by 4.6% unintended wt loss and <75% of est 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 Rec change to glucerna shake tid w/ medpass Lab / Micro Data 08/06/23 06:25 08/06/23 06:25 Labs: Laboratory Results - last 24 hr 08/06/23 06:25: WBC 6.9, RBC 4.67, Hgb 11.9 L, Hct 37.2, MCV 79.7 L, MCH 25.5 L, MCHC 32.0, RDW Std Deviation 45.2 H, RDW Coeff of Finesse 15.8 H, Plt Count 167, MPV 11.4, Immature Gran % (Auto) 0.600, Neut % (Auto) 55.2, Lymph % (Auto) 29.8, [place] % (Auto) 11.0 H, Eos % (Auto) 3.0, Baso % (Auto) 0.4, Absolute Neuts (auto) 3.8, Absolute Lymphs (auto) 2.05, Nucleated RBC % 0, Sodium 138, Potassium 3.8, Chloride 106, Carbon Dioxide 27.0, Anion Gap 5, BUN 10, Creatinine 0.93, Estim Creat Clear Calc 38.58, Est GFR (MDRD) Af Amer 74, Est GFR (MDRD) Non-Af 61, BUN/Creatinine Ratio 10.7, Glucose 153 H, Calcium 9.0 Physical Exam Const alert, oriented x3, no apparent distress and average body habitus General Appearance: cooperative HEENT normocephalic, head/scalp atraumatic, hearing grossly normal bilaterally and moist oral mucous membranes Eyes PERRL and EOMs intact bilaterally Neck no lymphadenopathy and supple Resp normal respiratory effort, no retractions, no use of accessory muscles and clear to auscultation bilaterally Cardio regular rate and regular rhythm GI soft to palpation GI Narrative: Generalized lower abdominal tenderness to palpation with no guarding or peritoneal signs. Extremity normal to inspection Skin Skin Narrative: Patient has no evidence of rash at this time. Neuro oriented x3, CN's II-XII intact bilaterally, moves all extremities and no focal motor deficits Sensorium / Orientation: awake, alert, oriented to person and oriented to place Speech: speech normal Motor Exam: strength 5/5 throughout Psych affect normal Assessment & Plan Assessment/Plan (1) Proctitis: (2) Sacral fracture: QUALIFIERS: Encounter type: initial encounter Zone of sacrum fracture: unspecified portion of sacrum Fracture type: closed Qualified Code(s): S32.10XA - Unspecified fracture of sacrum, initial encounter for closed fracture (3) Constipation: QUALIFIERS: Constipation type: unspecified constipation type Qualified Code(s): K59.00 - Constipation, unspecified PLAN: Plan 83-year-old with worsening abdominal pain, lower GI bleeding and constipation : 1. CT evidence of Severe Distal Proctitis vs. Rectal Lesion/Neoplasm -I suspect she has elements of ischemic colitis or sigmoid colitis associated with diverticulosis and constipation. However she should undergo direct endoscopic evaluation. She has done well on IV Zosyn to treat alleged proctitis and has had improvement in her bowel movements with aggressive bowel regimen. 2. Fracture of S3 vertebral body & possible S2 with Fracture of the posterior elements/spinous processes after a recent Mechanical Fall complicating #1 in the setting of osteoarthritis. Avoid narcotics is much as possible and recommend Colace 100 mg twice a day with MiraLAX 17 g at night. Charges/Coding Visit Charges Inpatient E&M: 02801 Subs Hosp L3
--- NOTE | 2023-08-06 10:29 | CT_ITS ---
STUDY: CT CHEST, ABDOMEN T PELVIS WITHOUT CONTRAST REASON FOR EXAM: Female, 83 years old. Left atrial mass, rectal/sigmoid mass/stricture?. History of bladder cancer. RADIATION DOSAGE (If Supplied By Facility): CTDIvol = ( 9.26 ) mGy, DLP = ( 784.62 ) mGycm TECHNIQUE: Transaxial imaging was performed without the administration of intravenous contrast material. Individualized dose optimization techniques were used for this CT. COMPARISON: Comparison is made with prior study dated August 04, 2023. FINDINGS: CHEST Calcified granuloma in the peripheral lateral anterior aspect of the right lower lobe. Calcified granuloma in the right lower lobe adjacent to the right hemidiaphragm as well as in the left lower lobe. There is no demonstrated pleural abnormality. There are calcifications of the coronary arteries. Findings suggestive of persistent left atrial mass although without intravenous contrast menstruation, the evaluation is limited. Normal mediastinum. Calcified bilateral hilar lymph nodes. Normal unenhanced pulmonary arteries. There is atherosclerotic calcification of the aortic arch with tortuosity and elongation of the aortic arch and descending thoracic aorta. There are multi-level degenerative changes of the thoracic spine. ABDOMEN Normal liver. The gallbladder is contracted. Normal spleen. Normal pancreas. Normal bilateral adrenal glands. Normal right kidney. Normal left kidney. There is a small hiatal hernia. Normal small intestine. As again, there appears to be circumferential wall thickening of the rectum with increased markings in the surrounding fat. The appendix is visualized and appears normal. There is diffuse atherosclerotic calcification of the abdominal aorta, without a demonstrated aneurysm. Normal inferior vena cava. Normal retroperitoneum. Normal abdominal wall. There are diffuse degenerative changes of the visualized lumbar spine. PELVIS Normal urinary bladder. There is no pelvic fluid. There is no pelvic lymphadenopathy or mass lesion. There is diffuse atherosclerotic calcification of the pelvic arteries. CT/CT Chest, Abd, Pelvis WO Cont IMPRESSION: Persistent filling defect in the left atrium. Calcified granulomas in both lungs. Status post cholecystectomy. Circumferential wall thickening of the rectum with increased markings in the surrounding peritoneal fat. Electronically Signed: Ben Mathew MD at 14:19 EST ,
--- NOTE | 2023-08-06 10:31 | PCM.DC ---
Discharge Instructions Diet Discharge Diet: No restrictions Activity Discharge Activity: Return to Normal Activity Weight Bearing Status: Weight bearing as tolerated Dressing / Incision Call your doctor if you observe: Fever of 101 or Higher, Coldness, Increased Pain, Numbness or Tingling, Change in Color, Inability to urinate, Inability to have a bowel movement, Using more than 1 pad per hour, Shortness of breath, Dizziness, Fainting spells, Swelling in the ankles, Chest pain, Prolonged hiccupping, Increased palpitations (irregular heartbeat) and Calf discomfort Follow Up Care When: IN 2 WEEKS Test Results: Test results from this visit will be discussed in further detail at your follow-up appointment, if applicable. Discharge Plan Admission Admit Date/Time: 08/05/23 12:15 Attending Provider: Arturo Rico Primary Care Provider: Dhiraj Julian Consulting Providers: Surjit Guerrero Discharge Orders/Prescriptions Prescriptions: New polyethylene glycol 3350 17 gram Powder In Packet 17 g PO DAILY Qty: 0 0RF sennosides-docusate sodium [Senna-S] 8.6-50 mg tablet 2 tab-cap PO BID Qty: 60 0RF Rx Instructions: Hold it if more than 1 bowel movement per day. Continued valsartan 320 mg tablet 320 mg PO DAILY Patient Comments: TAKE 1 TABLET BY MOUTH EVERY DAY meclizine 12.5 mg tablet 12.5 mg PO Q6H PRN (Reason: dizziness) clobetasol 0.05 % ointment 1 applic topical BID PRN (Reason: rash) hyoscyamine sulfate 0.125 mg tablet, sublingual 0.125 mg sublingual Q4H PRN (Reason: dyspepsia) linagliptin 5 mg tablet 5 mg PO DAILY nystatin 100,000 unit/gram powder 1 applic topical BID PRN (Reason: rash) ondansetron 4 mg tablet,disintegrating 4 mg PO Q6H PRN (Reason: nausea and vomiting) tolterodine [Detrol LA] 2 MG capsule,extended release 24hr 2 mg PO QHS Patient Comments: URINARY MEDICATION atorvastatin 40 MG tablet 40 mg PO QHS Patient Comments: CHOLESTEROL fluoxetine 40 mg capsule 40 mg PO DAILY amlodipine 10 mg tablet 10 mg PO DAILY hydrochlorothiazide 12.5 mg capsule 12.5 mg PO DAILY bupropion HCl 150 mg tablet extended release 24 hr 150 mg PO DAILY calcium carbonate-vitamin D3 600 mg-5 mcg (200 unit) Tablet 1 tab PO DAILY aspirin 81 mg Tablet,Chewable 162 mg PO DAILYCM Qty: 30 0RF loperamide [Anti-Diarrheal (loperamide)] 2 mg capsule 2 mg PO Q6H PRN (Reason: loose stool) magnesium hydroxide [Milk of Magnesia] 400 mg/5 mL suspension 30 ml PO DAILY PRN (Reason: constipation) acetaminophen [Tylenol] 325 mg capsule 650 mg PO Q4H PRN (Reason: fever or pain) Hold Instructions: her Dtr told her to lay off due to liver issues glimepiride 1 mg tablet 1 mg PO DAILY Patient Comments: TAKE 1 TABLET BY MOUTH EVERY DAY WITH BREAKFAST Held metformin 1,000 mg tablet 1,000 mg PO BID Hold Instructions: Hold for 3 days then start as metformin 500 mg (half tablet)twice daily Discontinued Senna Plus 8.6-50 mg capsule 1 tab-cap PO DAILY PRN (Reason: constipation) Referrals / Follow Up: Vitor Franklin MD [Med Staff - Active Staff] - Within 1 Month Antonio Rich DO [Med Staff - Active Staff] - Within 1 Month Dhiraj Julian MD [Primary Care Provider] - Disposition Disposition (needs filled in before D/C Order can be placed): Home, Self Care
--- NOTE | 2023-08-06 10:44 | CASEMGMT ---
Noted no PT or OT recommended. Pt to dc back to [place].
--- NOTE | 2023-08-06 11:27 | CASEMGMT ---
Discharge Planning Updates, including therapy evals, faxed to [facility]. Notified them of possible dc for today. Hattie Mayen, Discharge Planning Asst.
--- NOTE | 2023-08-06 15:07 | DS.PCM_ITS ---
Providers Date of Admission: 08/05/23 Date of Discharge: 08/06/23 Primary Care Physician: Dr. Dhiraj Julian MD Consultations 08/05/23 02:26 Consult: Gastroenterology Routine Consulting Provider: [facility] Reason for Consult: CT ssuspicious of rectal lesion/neoplasm EMERGENT Consult: No MD Notified: Yes Date Notified: 08/05/23 Time Notified: 07:56 Method of Notification: Text Reason For Visit: RECTAL LESION ON CT FOR NEOPLASM, FALL WITH SACRAL Diagnosis Discharge Diagnosis (1) Proctitis: Status: Acute Code(s): K62.89 - Other specified diseases of anus and rectum (2) Sacral fracture: Status: Acute Code(s): S32.10XA - Unspecified fracture of sacrum, initial encounter for closed fracture Qualifiers: Encounter type: initial encounter Zone of sacrum fracture: unspecified portion of sacrum Fracture type: closed Qualified Code(s): S32.10XA - Unspecified fracture of sacrum, initial encounter for closed fracture (3) Constipation: Status: Acute Code(s): K59.00 - Constipation, unspecified Qualifiers: Constipation type: unspecified constipation type Qualified Code(s): K59.00 - Constipation, unspecified Plan The patient was admitted after fall. [facility] 1. Fall and Fracture of S3 vertebral body & possible S2 with Fracture of the posterior elements/spinous processes after a recent Mechanical Fall due to osteoarthritis; of the left hip and chronic back pain with sciatica; s/p L3-L4 laminectomy - PT/OT to consult and treat. Patient has listed anaphylactic allergy to Tylenol so this agent should be avoided. Fracture of S3 vertebral body and possible S2 with fracture of the S2 posterior elements/spinous process. 08/06: Pain is better. Patient able to walk and sitting on the chair. She states he wants to go home. Patient follows Dr. Mark. She had lumbar laminectomy by Dr. Fam in the past. 2. CT showing suspicion of distal proctitis: As per the patient there was no rectal tenderness or rectal bleeding. She had rectal exam by by ED physician and fecal impaction was found. She had good bowel movement soft to liquid on floor before enema was given. As per the patient she had colonoscopy which was benign few years ago therefore I hardly suspect neoplasm. Will discontinue the antibiotic and monitor off antibiotic. 1/23: Repeat CT with oral contrast was done after discussion with Dr. Rich. CT abdomen shows small hiatus hernia, circumferential wall thickening of rectum with increased markings surrounding fat. Appendix visualized and appears normal. Normal small intestine. Advised to follow-up with Dr. Rich in 1 month for repeat colonoscopy. 3. Finding of left atrial mass. She had CT abdomen pelvis in February 2023 reported as low-density mass measuring 2.6 cm in the right atrium near the interatrial septum. The patient had CT abdomen during this admission which reported 3.8 x 3.1 cm right atrial hypoattenuated mass. Subsequently patient had CT chest without IV contrast as patient just had CT abdomen with IV contrast. This reports mass in the left atrium, exam limited without IV contrast. Prior to that patient had 2D echo about a month ago which reported as severely dilated left atrium. Filamentous structure noted in the left atrium. Cannot rule out left atrial mass. Recommend AGA or cardiac MRI for further evaluation. The right atrium is mildly enlarged. Bubble contrast study negative for right to left interatrial shunt. This was discussed with the patient's son. This was further discussed with patient's primary b2b appointment setter who she will follow-up. Due to increased age and history of dementia and limited functional capacity, Dr. Franklin did not want to do a aggressive approach like AGA but will follow-up. 3. [id number] constipation exacerbated by fall/sacral fracture with associated abdominal pain, nausea and vomiting - Give Lactulose 30 cc po once along with MiraLAX 17 g daily. Patient moved her bowel. Advised to continue MiraLAX 17 g daily and senna S2 tablet twice daily. 4. History of GI bleed followed by Dr. Rich of gastroenterology - Noted. 5. History of dementia; mild - 6. Essential hypertension - Continue home regimen plus give prn IV Hydralazine for systolic blood pressure > 160 mm Hg. 7. Hyperlipidemia - Resume statin as previous. 8. Diabetes mellitus type 2; of unknown control - NPO for now with potential colonoscopy. FSBS q. 6 hours plus lowest intensity SSI. 9. Peripheral neuropathy - Noted. 10. History of BPPV; on prn meclizine - Continue prn meclizine. 11. Depression - Resume home medications. 12. History of aortic stenosis - Noted. 13. Overactive bladder - Stable. 14. DVT prophylaxis - SCD's only with possible pending GI procedure. Discharge medication reconciliation done. Discharge follow-up instructions completed. Discharge process discussed with the patient and all questions were answered to patient's satisfaction. Follow with PCP in 1 to 2 weeks Total time spent, exact 35 minutes on discharge meds reconciliation, examination, coordination of care with nurses and ancillary staff, review of imaging and blood test and discussion with the patient on follow-up instructions. Clinical Impression(s) from Imaging Studies Abdomen/Pelvis CT 08/04/23 20:12 IMPRESSION: Constipation. Question severe distal proctitis versus rectal lesion/neoplasm not excluded. Correlation with physical exam recommended. Stable hypoattenuated linear density most compatible with benign process. Status post cholecystectomy. Mild hiatal hernia. Question minimal right hydronephrosis and hydroureter with etiology indeterminate. A distal stricture, lesion along the ureter or urinary bladder cannot be excluded, versus recently passed stone. Clinical correlation recommended. Electronically Signed: Ammy Hamm MD at 22:12 EST , Lumbar Spine CT 08/04/23 20:25 IMPRESSION: Fracture of S3 vertebral body and possible S2 with fracture of the S2 posterior elements/spinous process. 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 No acute fracture or subluxation of the lumbar spine. Medications at Discharge Home Medications atorvastatin 40 mg tablet 40 mg PO QHS cholestrol 02/14/14 tolterodine 2 mg capsule,extended release 24 hr (Detrol LA) 2 mg PO QHS overactive bladder 02/14/14 valsartan 320 mg tablet 320 mg PO DAILY Cholesterol 04/10/21 amlodipine 10 mg tablet 10 mg PO DAILY bp 05/02/21 bupropion HCl 150 mg 24 hr tablet, extended release 150 mg PO DAILY mood 05/02/21 fluoxetine 40 mg capsule 40 mg PO DAILY depression 05/02/21 hydrochlorothiazide 12.5 mg capsule 12.5 mg PO DAILY bp/fluid 05/02/21 metformin 1,000 mg tablet 1,000 mg PO BID dm 05/02/21 calcium carbonate 600 mg-vitamin D3 5 mcg (200 unit) tablet 1 tab PO DAILY Supplement 03/21/22 clobetasol 0.05 % topical ointment 1 applic topical BID PRN rash 01/25/23 hyoscyamine sulfate 0.125 mg sublingual tablet 0.125 mg sublingual Q4H PRN dyspe psia 01/25/23 linagliptin 5 mg tablet 5 mg PO DAILY 01/25/23 meclizine 12.5 mg tablet 12.5 mg PO Q6H PRN dizziness 01/25/23 nystatin 100,000 unit/gram topical powder 1 applic topical BID PRN rash 02/13/23 ondansetron 4 mg disintegrating tablet 4 mg PO Q6H PRN nausea and vomiting 02/13/23 aspirin 81 mg chewable tablet 162 mg (2 x 81 mg) PO DAILYCM #30 tabs 06/21/23 acetaminophen 325 mg capsule (Tylenol) 650 mg PO Q4H PRN fever or pain 08/04/23 loperamide 2 mg capsule (Anti-Diarrheal (loperamide)) 2 mg PO Q6H PRN loose stool 08/04/23 magnesium hydroxide 400 mg/5 mL oral suspension (Milk of Magnesia) 30 ml PO DAILY PRN constipation 08/04/23 glimepiride 1 mg tablet 1 mg PO DAILY 08/05/23 polyethylene glycol 3350 17 gram oral powder packet 17 g PO DAILY #0 ea 08/06/23 sennosides 8.6 mg-docusate sodium 50 mg tablet (Senna-S) 2 tab-cap (2 x 8.6-50 mg) PO BID #60 tabs 08/06/23 Physical Exam Narrative Seen and examined. Her pain has much improved. Patient had fall on her buttock. She is also constipated but denies any rectal pain or rectal bleeding. She said ED physician did rectal exam and said fecal impaction. After some time patient had large bowel movement liquid bowel movement. She had colonoscopy few years ago and was normal as per the patient. Physical exam General: Alert, Oriented x3, Cooperative HEENT: Atraumatic, PERRLA, EOMI, Normocephalic Oral: No Gingival or Mucosal Lesions/ Ulcerations Neck: Supple, No JVD, Negative Carotid Bruits Lungs: Air entry diminished in bilateral lung bases. No crepitation/rhonchi Cardiovascular: Regular rate, Regular Rhythm, Normal S1, Normal S2, No murmurs Abdomen: Bowel Sounds Present, Soft, Non Tender, Non-Distended : No renal angle tenderness. No suprapubic tenderness. Extremities: No edema, Capillary Refill Less than 3 Seconds Skin: No rashes, No breakdown Musculoskeletal: Tenderness about sacral region. Hard time in rolling lateral or prone position. No Tenderness to Palpation of Joints or Extremities Neurological: Cranial nerves II-XII grossly intact, DTR 2+/4. No acute focal neurological deficit. Psych/Mental Status: Dementia but she talks more. Limited understanding and memory. 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 Rec change to glucerna shake tid w/ medpass Weight / BMI Weight Weight: 129 lb 6.581 oz Body Mass Index (BMI) 22.9 ABG / Lab / Microbiology Data 08/06/23 06:25 08/06/23 06:25 Laboratory: Laboratory Results - last 24 hr 08/06/23 06:25: WBC 6.9, RBC 4.67, Hgb 11.9 L, Hct 37.2, MCV 79.7 L, MCH 25.5 L, MCHC 32.0, RDW Std Deviation 45.2 H, RDW Coeff of Finesse 15.8 H, Plt Count 167, MPV 11.4, Immature Gran % (Auto) 0.600, Neut % (Auto) 55.2, Lymph % (Auto) 29.8, [place] % (Auto) 11.0 H, Eos % (Auto) 3.0, Baso % (Auto) 0.4, Absolute Neuts (auto) 3.8, Absolute Lymphs (auto) 2.05, Nucleated RBC % 0, Sodium 138, Potassium 3.8, Chloride 106, Carbon Dioxide 27.0, Anion Gap 5, BUN 10, Creatinine 0.93, Estim Creat Clear Calc 38.58, Est GFR (MDRD) Af Amer 74, Est GFR (MDRD) Non-Af 61, BUN/Creatinine Ratio 10.7, Glucose 153 H, Calcium 9.0 Radiography Diagnostic Testing: Radiology Impression Chest/Abdomen/Pelvis CT 08/06/23 10:29 IMPRESSION: Persistent filling defect in the left atrium. Calcified granulomas in both lungs. Status post cholecystectomy. Circumferential wall thickening of the rectum with increased markings in the surrounding peritoneal fat. Electronically Signed: Ben Mathew MD at 14:19 EST , D/C Instructions Discharge Diet: No restrictions Weight Bearing Status: Weight bearing as tolerated Call your doctor if you observe: Fever of 101 or Higher, Coldness, Increased Pain, Numbness or Tingling, Change in Color, Inability to urinate, Inability to have a bowel movement, Using more than 1 pad per hour, Shortness of breath, Dizziness, Fainting spells, Swelling in the ankles, Chest pain, Prolonged hiccupping, Increased palpitations (irregular heartbeat) and Calf discomfort When: IN 2 WEEKS Meaningful Use Info Meaningful Use Diagnoses (Choose all that apply): None applicable Discharge Plan Admission Admit Date/Time: 08/05/23 12:15 Attending Provider: Arturo Rico Primary Care Provider: Dhiraj Julian Consulting Providers: Surjit Guerrero Discharge Orders/Prescriptions Prescriptions: New polyethylene glycol 3350 17 gram Powder In Packet 17 g PO DAILY Qty: 0 0RF sennosides-docusate sodium [Senna-S] 8.6-50 mg tablet 2 tab-cap PO BID Qty: 60 0RF Rx Instructions: Hold it if more than 1 bowel movement per day. Continued valsartan 320 mg tablet 320 mg PO DAILY Patient Comments: TAKE 1 TABLET BY MOUTH EVERY DAY meclizine 12.5 mg tablet 12.5 mg PO Q6H PRN (Reason: dizziness) clobetasol 0.05 % ointment 1 applic topical BID PRN (Reason: rash) hyoscyamine sulfate 0.125 mg tablet, sublingual 0.125 mg sublingual Q4H PRN (Reason: dyspepsia) linagliptin 5 mg tablet 5 mg PO DAILY nystatin 100,000 unit/gram powder 1 applic topical BID PRN (Reason: rash) ondansetron 4 mg tablet,disintegrating 4 mg PO Q6H PRN (Reason: nausea and vomiting) tolterodine [Detrol LA] 2 MG capsule,extended release 24hr 2 mg PO QHS Patient Comments: URINARY MEDICATION atorvastatin 40 MG tablet 40 mg PO QHS Patient Comments: CHOLESTEROL fluoxetine 40 mg capsule 40 mg PO DAILY amlodipine 10 mg tablet 10 mg PO DAILY hydrochlorothiazide 12.5 mg capsule 12.5 mg PO DAILY bupropion HCl 150 mg tablet extended release 24 hr 150 mg PO DAILY calcium carbonate-vitamin D3 600 mg-5 mcg (200 unit) Tablet 1 tab PO DAILY aspirin 81 mg Tablet,Chewable 162 mg PO DAILYCM Qty: 30 0RF loperamide [Anti-Diarrheal (loperamide)] 2 mg capsule 2 mg PO Q6H PRN (Reason: loose stool) magnesium hydroxide [Milk of Magnesia] 400 mg/5 mL suspension 30 ml PO DAILY PRN (Reason: constipation) acetaminophen [Tylenol] 325 mg capsule 650 mg PO Q4H PRN (Reason: fever or pain) Hold Instructions: her Dtr told her to lay off due to liver issues glimepiride 1 mg tablet 1 mg PO DAILY Patient Comments: TAKE 1 TABLET BY MOUTH EVERY DAY WITH BREAKFAST Held metformin 1,000 mg tablet 1,000 mg PO BID Hold Instructions: Hold for 3 days then start as metformin 500 mg (half tablet)twice daily Discontinued Senna Plus 8.6-50 mg capsule 1 tab-cap PO DAILY PRN (Reason: constipation) Referrals / Follow Up: Vitor Franklin MD [Med Staff - Active Staff] - Within 1 Month Antonio Rich DO [Med Staff - Active Staff] - Within 1 Month Dhiraj Julian MD [Primary Care Provider] - Disposition Disposition (needs filled in before D/C Order can be placed): Home, Self Care Charges/Coding Visit Charges Inpatient E&M: 72981 Disch Hosp >30min
--- NOTE | 2023-08-06 15:41 | CASEMGMT ---
Discharge Planning Discharge Instructions and Summary faxed to Gloria. Hattie Mayen, Discharge Planning Asst.
[2023-08-06 16:30] VITALS: BP 126/83; PULSE 65; RESP 18; TEMP 36.6; O2SAT 97
== END 2023-08-06 16:29 | disposition home or self-care (01) | DRG 393 ==
LOC: ED 22:41 → MS3 08-05 02:15
PROVIDERS: Physician Assistant; Admitting Provider Internal Medicine; Emergency Provider Emergency Medicine; PCP Family Medicine; Visit Provider Internal Medicine
DX: K62.89 Other specified diseases of anus and rectum (principal); E43 Unspecified severe protein-calorie malnutrition; S32.10XA Unspecified fracture of sacrum, initial encounter for closed fracture; E11.42 Type 2 diabetes mellitus with diabetic polyneuropathy; F03.A0 Unspecified dementia, mild, without behavioral disturbance, psychotic disturbance, mood disturbance, and anxiety; I10 Essential (primary) hypertension; F32.A Depression, unspecified; K59.09 Other constipation; E78.00 Pure hypercholesterolemia, unspecified; W18.30XA Fall on same level, unspecified, initial encounter; M16.12 Unilateral primary osteoarthritis, left hip; I51.89 Other ill-defined heart diseases; N32.81 Overactive bladder; G89.29 Other chronic pain; Z68.22 Body mass index [BMI] 22.0-22.9, adult; Z98.1 Arthrodesis status; Z90.49 Acquired absence of other specified parts of digestive tract; Z79.82 Long term (current) use of aspirin; Z79.84 Long term (current) use of oral hypoglycemic drugs; Z79.899 Other long term (current) drug therapy; Z87.19 Personal history of other diseases of the digestive system; Z87.891 Personal history of nicotine dependence; Z23 Encounter for immunization
CPT/HCPCS: 36415; 71250; 72131; 74176; 74177; 80048; 80053; 81001; 83690; 83735; 84100; 84443; 85025; 97161; 97166; 97802; 99284; J7040; J7120; Q9967; 90662; A4216

== ENCOUNTER → 2023-09-11 | Outpatient (CLI) | payer MEDICARE, OTHER, SELFPAY ==
--- NOTE | 2023-09-11 09:54 | ECHOTEE_ITS ---
Reason For Study: HTN Medication AGA probe 6VT-D (SN [id number]) passed without difficulty. No complications were noted. Cetacaine Topical [place] given X3 orally. Versed 2 mg given slow IVP. Fentanyl 50 mcg given slow IVP. Performed a rapid injection of agitated mix of 9 cc saline and 1cc air to assess for atrial septal defect. Left Ventricle Normal LV size. Left ventricular systolic function is normal. The estimated ejection fraction is 60 %. No regional wall motion abnormalities noted. Right Ventricle Normal RV size. Normal systolic function. Atria Normal atrial septum. Bubble contrast study negative for right to left interatrial shunt. Normal left atrium. No thrombus is detected in the left atrial appendage. No mass noted in LA. Normal right atrium. Probable chiari network. Mitral Valve Normal mitral valve. Tricuspid Valve Normal tricuspid valve. Aortic Valve Normal aortic valve. Trisinus/trileaflet aortic valve. Pulmonic Valve Normal pulmonic valve. Vessels Normal aortic root. Pericardium No pericardial effusion. ECHO/Echo Transesophageal (AGA) Interpretation Summary Normal LV size. Left ventricular systolic function is normal. The estimated ejection fraction is 60 %. Bubble contrast study negative for right to left interatrial shunt. Normal left atrium. No mass noted in LA Ordering Physician: Vitor Franklin Referring Physician: Dihraj Julian Performed By: Bee Ospina, RDCS, RVT
--- OUTSIDE RECORDS SUMMARY | 2023-09-11 18:12 | XMS RPT_ITS | CCD ---
Author Name Unknown Address [address] [place] [address] Organization [facility] Care Team Providers Care Clinical Product Manager Name Role Phone Kathie Julian MD Primary [...] MINOPHEN] Drug Allergy 7 Anaphylaxis [facility] Work Phone: (20 sources) Codeine; Translations: [CODEINE] Drug Allergy 4 Anaphylaxis [facility] Work Phone: (20 sources) crab allergenic extract; Translations: [CRAB] Drug Allergy 6 Unknown [facility] (20 sources) DULoxetine; Translations: [DULOXETINE] Drug Allergy 4 Other: See Comments [facility] (20 sources) levoFLOXacin; Translations: [LEVOFLOXACIN] Drug Allergy 0 Intolerance [facility] Work Phone: (20 sources) oxaprozin; Translations: [OXAPROZIN] Drug Allergy 5 [facility] Work Phone: (20 sources) predniSONE; Translations: [PREDNISONE] Drug Allergy 5 Other: See Comments [facility] Work Phone: (20 sources) zolpidem; Translations: [ZOLPIDEM TARTRATE] Drug Allergy 4 Mental Status Change [facility] Work Phone: Medications Current Medications Medication [...] Kathie Julian MD Work Phone: [facility] 06-14-2023 15:38-0500 Body weight 64.32 kg Kathie Julian MD Work Phone: [facility] 06-14-2023 15:38-0500 Diastolic blood pressure 70 mm[Hg] Kathie Julian MD Work Phone: [facility] 06-14-2023 15:38-0500 Heart rate 67 /min Kathie Julian MD Work Phone: [facility] 06-14-2023 15:38-0500 SaO2% (BldA) [Mass fraction] 97 % Kathie Julian MD Work Phone: [facility] 06-14-2023 15:38-0500 Systolic blood pressure 146 mm[Hg] Kathie Julian MD Work Phone: [facility] 02-19-2023 15:30-0400 Diastolic blood pressure 70 mm[Hg] Jeana Mendoza MOTOR OPERATOR.PET COUNSELOR Work Phone: [facility] 02-19-2023 15:30-0400 Heart rate 60 /min Jeana Mendoza MOTOR OPERATOR.PET COUNSELOR Work Phone: [facility] 02-19-2023 15:30-0400 Respiratory rate 16 /min Jeana Mendoza MOTOR OPERATOR.PET COUNSELOR Work Phone: [facility] 02-19-2023 15:30-0400 SaO2% (BldA) [Mass fraction] 98 % Jeana Mendoza MOTOR OPERATOR.PET COUNSELOR Work Phone: [facility] 02-19-2023 15:30-0400 Systolic blood pressure 130 mm[Hg] Jeana Mendoza APRN.CNP Work Phone: [facility] 12-13-2022 15:28-0400 Body height 162.6 cm Kathie Julian MD Work Phone: [facility] 12-13-2022 15:28-0400 Body weight 62.41 kg Kathie Julian MD Work Phone: [facility] 12-13-2022 15:28-0400 Diastolic blood pressure 54 mm[Hg] Kathie Julian MD Work Phone: [facility] 12-13-2022 15:28-0400 Heart rate 69 /min Kathie Julian MD Work Phone: [facility] 12-13-2022 15:28-0400 SaO2% (BldA) [Mass fraction] 96 % Kathie Julian MD Work Phone: [facility] 12-13-2022 15:28-0400 Systolic blood pressure 118 mm[Hg] Kathie Julian MD Work Phone: [facility] 07-12-2022 11:08-0500 Body weight 60.6 kg Kathie Julian MD Work Phone: [facility] 07-12-2022 11:08-0500 Diastolic blood pressure 66 mm[Hg] Kathie Julian MD Work Phone: [facility] 07-12-2022 11:08-0500 Heart rate 66 /min Kathie Julian MD Work Phone: [facility] 07-12-2022 11:08-0500 Respiratory rate 20 /min Kathie Julian MD Work Phone: [facility] 07-12-2022 11:08-0500 SaO2% (BldA) [Mass fraction] 97 % Kathie Julian MD Work Phone: [facility] 07-12-2022 11:08-0500 Systolic blood pressure 144 mm[Hg] Kathie Julian MD Work Phone: [facility] 02-16-2022 10:15-0400 Body weight 59.88 kg Jeana Haagen MOTOR OPERATOR.PET COUNSELOR Work Phone: [facility] 02-16-2022 10:15-0400 Diastolic blood pressure 66 mm[Hg] Jeana Haagen MOTOR OPERATOR.PET COUNSELOR Work Phone: [facility] 02-16-2022 10:15-0400 Heart rate 58 /min Jeana Haagen MOTOR OPERATOR.PET COUNSELOR Work Phone: [facility] 02-16-2022 10:15-0400 Respiratory rate 14 /min Jeana Haagen MOTOR OPERATOR.PET COUNSELOR Work Phone: [facility] 02-16-2022 10:15-0400 SaO2% (BldA) [Mass fraction] 97 % Jeana Haagen MOTOR OPERATOR.PET COUNSELOR Work Phone: [facility] 02-16-2022 10:15-0400 Systolic blood pressure 128 mm[Hg] Jeana Haagen MOTOR OPERATOR.PET COUNSELOR Work Phone: [facility] 01-18-2022 11:34-0400 Body weight 61.69 kg Kathie Julian MD Work Phone: [facility] 01-18-2022 11:34-0400 Diastolic blood pressure 62 mm[Hg] Kathie Julian MD Work Phone: [facility] 01-18-2022 11:34-0400 Heart rate 60 /min Kathie Julian MD Work Phone: [facility] 01-18-2022 11:34-0400 Systolic blood pressure 132 mm[Hg] Kathie Julian MD Work Phone: [facility] 01-10-2022 11:21-0400 Diastolic blood pressure 62 mm[Hg] Kathie Julian MD Work Phone: [facility] 01-10-2022 11:21-0400 Systolic blood pressure 128 mm[Hg] Kathie Julian MD Work Phone: [facility] 01-10-2022 10:59-0400 Body weight 60.33 kg Kathie Julian MD Work Phone: [facility] 01-10-2022 10:59-0400 Heart rate 60 /min Kathie Julian MD Work Phone: [facility] 01-10-2022 10:59-0400 Respiratory rate 16 /min Kathie Julian MD Work Phone: [facility] 01-05-2022 13:32-0400 Body weight 60.33 kg Arpita Podlogar MOTOR OPERATOR.PET COUNSELOR Work Phone: [facility] 01-05-2022 13:32-0400 Diastolic blood pressure 58 mm[Hg] Arpita Podlogar MOTOR OPERATOR.PET COUNSELOR Work Phone: [facility] 01-05-2022 13:32-0400 Heart rate 69 /min Arpita Podlogar MOTOR OPERATOR.PET COUNSELOR Work Phone: [facility] 01-05-2022 13:32-0400 Respiratory rate 18 /min Arpita Podlogar MOTOR OPERATOR.PET COUNSELOR Work Phone: [facility] 01-05-2022 13:32-0400 SaO2% (BldA) [Mass fraction] 98 % Arpita Podlogar MOTOR OPERATOR.PET COUNSELOR Work Phone: [facility] 01-05-2022 13:32-0400 Systolic blood pressure 112 mm[Hg] Arpita Podlogar MOTOR OPERATOR.PET COUNSELOR Work Phone: [facility] 12-09-2021 09:00-0400 Body temperature 97.39 [degF] Jessica Athy PA-C Work Phone: [facility] 12-09-2021 09:00-0400 Body weight 61.87 kg Jessica Athy PA-C Work Phone: [facility] 12-09-2021 09:00-0400 Diastolic blood pressure 66 mm[Hg] Jessica Athy PA-C Work Phone: [facility] 12-09-2021 09:00-0400 Heart rate 75 /min Jessica Athy PA-C Work Phone: [facility] 12-09-2021 09:00-0400 Respiratory rate 20 /min Jessicabrittany Estevezmarianne PA-C Work Phone: [facility] 12-09-2021 09:00-0400 SaO2% (BldA) [Mass fraction] 97 % Jessicabrittany Estevezy PA-C Work Phone: [facility] 12-09-2021 09:00-0400 Systolic blood pressure 138 mm[Hg] Jessicabrittany Estevezy PA-C Work Phone: [facility] 11-08-2021 15:22-0400 Body weight 63.01 kg Jeana Haagen MOTOR OPERATOR.PET COUNSELOR Work Phone: [facility] 11-08-2021 15:22-0400 Diastolic blood pressure 62 mm[Hg] Jeana Haagen MOTOR OPERATOR.PET COUNSELOR Work Phone: [facility] 11-08-2021 15:22-0400 Heart rate 80 /min Jeana Haagen MOTOR OPERATOR.PET COUNSELOR Work Phone: [facility] 11-08-2021 15:22-0400 Respiratory rate 16 /min Jeana Haagen MOTOR OPERATOR.PET COUNSELOR Work Phone: [facility] 11-08-2021 15:22-0400 SaO2% (BldA) [Mass fraction] 98 % Jeana Haagen MOTOR OPERATOR.PET COUNSELOR Work Phone: [facility] 11-08-2021 15:22-0400 Systolic blood pressure 134 mm[Hg] Jeana Haagen MOTOR OPERATOR.PET COUNSELOR Work Phone: [facility] Encounters Encounter Date Encounter Type Care Provider Facility Start: 06-24-2023 Telephone encounter Kathie Julian MD Work Phone: [facility] Procedures Date Procedure Procedure Detail Performing Clinician Start: 01-31-2023 Us retroperitoneal r eal time w/image complete Kathie Julian MD Work Phone: Start: 12-24-2019 Adult depression scr eening assessment Khadijah Durandione PHYSICAL AERODYNAMICIST Start: 12-17-2018 Electrocardiogram Plan of Treatment Date Care Activity Detail Author Start: 10-18-2024 Urine microalbumin profile [facility] Start: 06-14-2024 3 comp foot exam completed Diabetic Foot Exam [facility] Start: 06-14-2024 Diabetic foot examination Diabetic F oot Exam [facility] Start: 12-22-2023 Glaucoma screening Dilated Retinal E xam [facility] Start: 12-22-2023 Hepatitis C antibody , confirmatory test DILATED RETINAL EXAM [facility] Start: 12-14-2023 COVID-19 VACCINE (3 - Booster for Moderna series) COVID-19 VACCINE (3 - Booster for Moderna series) [facility] Immunizations Immunization Date Immunization Notes Care Provider Lisbet frausto 05-03-2021 influenza, seasonal, injectable, preservative free Kathie Julian MD Work Phone: [facility] 05-03-2021 influenza virus vacc ine, unspecified formulation Us Work Phone: [facility] 09-09-2020 COVID-19 vaccine, fu ll dose (MODERNA) Khadijah Schlechty [facility] 08-12-2020 COVID-19 vaccine, fu ll dose (MODERNA) Khadijah Schlechty [facility] 04-09-2020 influenza, high-dose , quadrivalent vaccine (FLUZONE HIGH DOSE QUADRIVALENT) Khadijah Schlecy [facility] Work Phone: 04-21-2019 influenza, high dose seasonal, preservative-free Khadijah Schlechty [facility] Work Phone: 04-28-2018 influenza, high dose seasonal, preservative-free Khadijah Schlechty [facility] 04-15-2017 influenza, high dose seasonal, preservative-free Khadijah Schlechty [facility] 05-08-2016 influenza, high dose seasonal, preservative-free Khadijah Schlechty [facility] Work Phone: 05-05-2015 influenza, high dose seasonal, preservative-free Khadijah Schlechty [facility] 01-05-2015 pneumococcal conjuga te vaccine, 13 valent Khadijah Schlechty [facility] 10-18-2014 tetanus toxoid, redu brie diphtheria toxoid, and acellular pertussis vaccine, adsorbed Khadijah Schlechty PHYSICAL AERODYNAMICIST [facility] 04-21-2014 influenza, seasonal, injectable [facility] 02-17-2014 pneumococcal polysaccharide vaccine, 23 valent [facility] Work Phone: 05-23-2013 influenza virus vacc ine, unspecified formulation Khadijah [facility] 04-19-2012 influenza virus vacc ine, unspecified formulation [facility] 07-15-2011 TD(adult) unspecifie d formulation Kathie Julian MD Work Phone: [facility] 06-20-2011 tetanus and diphther ia toxoids, adsorbed, preservative free, for adult use (2 Lf of tetanus toxoid and 2 Lf of diphtheria toxoid) [facility] 05-26-2011 influenza virus vacc ine, unspecified formulation [facility] Work Phone: 04-29-2010 influenza virus vacc ine, unspecified formulation [facility] Work Phone: 05-19-2009 zoster vaccine, live [facility] 04-16-2009 influenza virus vacc ine, unspecified formulation [facility] Work Phone: 05-20-2008 influenza virus vacc ine, unspecified formulation Khadijah [facility] 07-25-2007 influenza virus vacc ine, unspecified formulation [facility] Work Phone: 06-11-2006 influenza virus vacc ine, unspecified formulation Khadijah [facility] Work Phone: 04-30-2003 pneumococcal polysaccharide vaccine, 23 valent Jessica Rivera PA-C Work Phone: [facility] Work Phone: Payers Date Payer Category Payer Medicare [id number] 2020 Unknown MMO MMO MEDICARE SUPPLEMENT [id number] 2020-Present [phone] [address] [place] [address] Indemnity [id number] 2020 Unknown MMO MMO MEDICARE SUPPLEMENT [id number] 2020-Present [phone] [address] [place] [address] Indemnity [id number] 2013 Medicare MEDICARE MEDICAR E A AND B [id number] 2013-Present [phone] [address] [address] [place] [address] Medicare [id number] 2013 Medicare MEDICARE MEDICAR E A AND B [id number] 2013-Present [phone] [place] [address] Medicare [id number] 2013 Medicare [id number] Social History Date Type Detail Facility Start: 06-24-2014 End: 03-22-2022 Tobacco smoking status NHIS Ex-smoker [facility] Start: [birth year]-14-1959 End: 01-30-1971 History of tobacco use Current smoker [facility] Start: 06-14-1959 End: 01-30-1971 History of tobacco use Cigarette Smoker [facility] Start: 10-04-2021 End: 06-14-2023 Alcohol intake Current non-drinker of alcohol (finding) [facility] Start: 1940 Sex Assigned At Not on file [facility] Start: 09-24-2021 End: 03-22-2022 Exposure to SARS-CoV-2 (event) Not sure [facility] Start: 06-24-2014 End: 12-13-2022 Cigarettes smoked current (pack per day) - Reported 0.3 [facility] Work Phone: Start: 06-24-2014 End: 03-22-2022 Tobacco use and exposure Smokeless tobacco non-user [facility] Work Phone: Start: 03-22-2022 Tobacco Comment Parents smoked in childhood home. Spouse non-smoker. [facility] Start: 12-24-2019 End: 12-13-2022 Tobacco use panel [facility] Work Phone: Adult Depression Screening Assessment 6 [facility] Work Phone: Medical Equipment Procedure Code Equipment Code Equipment Origin al Text Equipment Identifier Dates Cement Simplex B one High Viscosity - [id number] Start: 07-10-2017 Insert Triathlon 3 X3 11mm Tibial Posterior Stabilized Primary Knee - [id number] Start: 07-10-2017 Component Triath bere 3 Femoral Cemented Posterior Stabilize Knee Right - [id number] Start: 07-10-2017 Component Triath bere 32mm Asymmetric X3 10mm Patellar Knee - [id number] Start: 07-10-2017 Baseplate Triath bere 3 Tibial Primary Cement Knee - [id number] Start: 07-10-2017 Start: 11-25-2018 End: 07-12-2022 [...] question. Amara states patient is only at [facility] for respite care until they can find a place for patient. Reports patient is not admitted there, and they are not doing a thing for patient. Reports they are trying to get patient into [facility], and [facility] will see patient tomorrow, to do an assessment, to see if she is a good candidate for [facility]. Daughter asking if pcp can order the sed rate, for patient to come to lab to have blood draw, since she is only at [facility] for respite care? Please advise daughterAmara. Is she doing rehab at [facility]. If we are not managing. I cannot [...] dentist. Pt stated there was a birthday alliance party at the dentist that she was going to. Pt was redirected back home by a neighbor. Pt also voiced to dtr that she had fallen twice that day () and had a headache and was vomiting. Due to pt's abrupt memory change as well as other sx's, dtr took pt to [facility] ER. Pt was admitted and is still there this morning. Pt believes it is the year 1988. Dtr states a complete stroke work up was completed and nothing was found . The plan is for pt to be discharged from [facility] today and pt will go to [facility] memory care unit under respite care for now until a further plan is determined. Daughter states [facility] has discontinued pt's gabapaentin, which has [...] RN documented in this encounter [facility] 06-14-2023 Note HNO ID: [id number] Author: Kathie Julian MD Service: ? Author [...] and abnormal moveme (more content not included)... [facility] 06-14-2023 History of Present illness Narrative [...] Father at 71 of diabetes Heart Father [place] Arthritis Maternal Grandmother other (Other) Maternal Grandmother [...] months. documented in this encounter [facility] 06-05-2023 Miscellaneous Notes Patient has been [...] LPN. documented in this encounter [facility] 05-23-2023 Miscellaneous Notes The following approved medication requests have been transmitted electronically. Requested Prescriptions Signed Prescriptions Disp Refills meloxicam (MOBIC) 15 mg tablet 30 tablet 5 Sig: Take 1 tablet by mouth once daily. With food. Authorizing Provider: EJ SMITH MD Shanel Felton is calling Kathie Julian MD today requesting an prescription meloxicam (MOBIC) 15 mg tablet Please send to [facility]/ [place] documented in this encounter [facility] 05-22-2023 Miscellaneous Notes Patient has been [...] Henry documented in this encounter [facility] 03-07-2023 Miscellaneous Notes Medication refill requested by pharmacy. Requested Prescriptions Pending Prescriptions Disp Refills metFORMIN (GLUCOPHAGE) 1,000 mg tablet 180 tablet 1 Sig: Take 1 tablet by mouth twice daily with meals. Last encounter with this provider: 02/19/2023 Next appt: 06/14/2023 Ginny Zacarias RN documented in this encounter [facility] 02-19-2023 Note HNO ID: [id number] Author: Jeana Mendoza APRN.PET COUNSELOR Service: ? Author Type: Nurse Practitioner Type: Progress Notes Filed: 02/19/2023 5:28 PM Note Text: This is a 82 year old female who presents today with: Patient presents with: ER F/U: [facility] ER 02/18/23 dx: abd pain HISTORY OF PRESENT ILLNESS: Shanel Felton is a 82 year old female. Patient presents with: ER F/U: [facility] ER 02/18/23 dx: abd pain Pt [...] questionable evidence of a atrial mass. A rjhsh-di-ukwl ultrasound was obtained and revealed no evidence of obvious intra atrial mass. [place] that the imaging was likely showing artifact. [...] 1 mg tablet (more content not included)... [facility] 02-19-2023 Instructions Jeana Mendoza APRN.CNP - 02/19/2023 3:57 PM EDT Take the levsin as needed. Let us know if you get any further episode. documented in this encounter [facility] 02-19-2023 History of Present illness Narrative This is a 82 year old female who presents today with: Patient presents with: ER F/U: [facility] ER 02/18/23 dx: abd pain HISTORY OF PRESENT ILLNESS: Shanel Felton is a 82 year old female. Patient presents with: ER F/U: [facility] ER 02/18/23 dx: abd pain Pt [...] questionable evidence of a atrial mass. A qirik-hd-ktph ultrasound was obtained and revealed no evidence of obvious intra atrial mass. [place] that the imaging was likely showing artifact. [...] Father at 71 of diabetes Heart Father [place] Arthritis Maternal Grandmother other (Other) Maternal Grandmother [...] Esophageal spasm - ICD9: 530.5, ICD10: K22.4 [place] symptoms related to esophageal spasm. Improved today. Has prn levsyn. She is aware to notify provider of any new/recurrent/worsening symptoms. Discussed treatment plan and patient voices understanding. Patient's questions answered appropriately. Medications and potential side effects were discussed and patient voices understanding. Return to the office as scheduled or as needed for worsening/no improvement. Jeana Mendoza APRN.PET COUNSELOR documented in this encounter [facility] 02-18-2023 Miscellaneous Notes Pt's daughter Amara [...] RN documented in this encounter [facility] 02-11-2023 Miscellaneous Notes Amara calls to request results of US Kidney/bladder. Reviewed Negative results. Amara verbalizes understanding. Jaylin Camacho RN documented in this encounter [facility] 01-31-2023 Note HNO ID: [id number] Author: Anamaria Giron RDMS Service: ? Author Type: Assistant Chief Train Dispatcher Type: Progress Notes Filed: 01/31/2023 10:30 AM [...] Giron RDMS January 31, 2023 10:30 AM [facility] 01-31-2023 History of Present illness Narrative [...] AM documented in this encounter [facility] 12-14-2022 Miscellaneous Notes Patient notified. Ginny Zacarias RN Labs are stable except kidney function is down a little. Can be due to hydration. Push fluids. Recheck bmp in two weeks. documented in this encounter [facility] 12-13-2022 Note HNO ID: [id number] Author: Kathie Julian MD Service: ? Author [...] as needed. Blood-Glucose Meter (ACCU-CHEK GUILLERMINA MONITORING) [facility] [place] [place] Kit USE DIRECTED No current facility-administered medications [...] SURGICAL HISTORY Pro (more content not included)... [facility] 12-13-2022 History of Present illness Narrative [...] as needed. Blood-Glucose Meter (ACCU-CHEK GUILLERMINA MONITORING) [facility] [place] [place] Kit USE DIRECTED No current facility-administered medications [...] Father at 71 of diabetes Heart Father [place] Arthritis Maternal Grandmother other (Other) Maternal Grandmother [...] prn. documented in this encounter [facility] 10-18-2022 Miscellaneous Notes Patient was notified [...] Sw know that patient received message from [employer] that she was over income for help [...] assistance. documented in this encounter [facility] 10-12-2022 Miscellaneous Notes Patient said she [...] Pss documented in this encounter [facility] 10-09-2022 Miscellaneous Notes Patient phones requesting [...] LPN documented in this encounter [facility] 10-03-2022 Miscellaneous Notes Application mailed to [employer]. Copy sent to scanning. done Application on [...] . documented in this encounter [facility] 09-21-2022 Miscellaneous Notes Faxing as requested. Sw checked with [facility] regarding [facility] Fax. The rep said that the fax number is [phone]. Sw will send to OSITO Cruz to see about refaxing patient Januvia prescription. documented in this encounter [facility] 09-19-2022 Miscellaneous Notes Script faxed as requested. Printed. Patient called Sw regarding refill through [facility] P[facility]. Patient notes that she called [facility] and they need a new prescription for Januvia refill to be processed. Sw notes that she will check with [facility] to see where prescription needs to be sent and about yearly application. [facility] needs new Januvia prescription faxed to them. Patient is able then to have refill on current PAP application. Patient is in need of applying to [employer] PAP as application will 09/27/22. Please [facility] [facility] fax#[phone]. Sw will also assist patient with applying again to [employer] and mail application along with consent for release form to patient home. documented in this encounter [facility] 09-11-2022 Miscellaneous Notes Patient has been [...] for Mobic [facility] [place] if PCP is still wanting her to take this. documented in this encounter [facility] 08-31-2022 Miscellaneous Notes Pt returned call. [...] advise documented in this encounter [facility] 08-20-2022 Miscellaneous Notes Spoke with patient. [...] pasta, rice, corn, corn syrup. Jeana Mendoza APRN.PET COUNSELOR documented in this encounter [facility] 07-30-2022 Miscellaneous Notes Patient has been [...] RN documented in this encounter [facility] 07-19-2022 Miscellaneous Notes Patient calling pharmacy [...] LPN documented in this encounter [facility] 07-12-2022 History of Present illness Narrative [...] bedtime. Blood-Glucose Meter (ACCU-CHEK GUILLERMINA PLUS METER) [facility] Use daily as instructed. DX:E11.40 Insulin: No [...] Father at 71 of diabetes Heart Father [place] Arthritis Maternal Grandmother other (Other) Maternal Grandmother [...] prn. documented in this encounter [facility] 06-06-2022 Miscellaneous Notes MARLENA 03/22/2022 Appointment [...] Roberts documented in this encounter [facility] 05-24-2022 Miscellaneous Notes Pt calling and states if she needs to continue medication below she will need a refill called. CHELLE Johnson will mail it to her. Please advise pt. Maggi Gonzalez [facility] Patient has been identified by name [...] LPN documented in this encounter [facility] 05-03-2022 Miscellaneous Notes Patient reports that she spoke with [facility] and she is eligible for refill on her Januvia on 06/18/22. Patient notes that she will contact [facility] at that time to request refill. Patient thanked David for assistance. Patient reports that she is getting low on her Januvia. She has number for [facility] and will call to see when she is eligible for refill on Januvia. Sw noted that she would check with [employer] and see when patient needs to complete new yearly application. Sw will let patient know what she learns from [employer]. Sw received message from patient requesting SW call her to discuss prescription assistance needs. Sw noted that she would reach out to patient tomorrow 05/03 @10am. documented in this encounter [facility] 04-24-2022 Miscellaneous Notes Patient has been [...] LPN documented in this encounter [facility] 04-05-2022 Miscellaneous Notes ok Katie BOYD calling from [facility] to report plan of care for patient and Physical Therapy will visit patient 1 time a week for first week and 2 times a week for 4 weeks. Physical therapy will work with patient on Strengthening, Pain Management, and Gait/Transfer Safety. No Call Back needed. Pham Clemente RN documented in this encounter [facility] 04-03-2022 Miscellaneous Notes Liliam notified. Cayden Patterson LPN Yes Liliam from [facility] calls and states that patient is being discharged from [facility] on 04/04/2022 with the diagnosis of Laminectomy L3-L4 . Liliam asking if provider willing to follow patient with orders for Physical Therapy? If agreeable please give Liliam a call back . Thank you, Pham Clemente RN documented in this encounter [facility] 03-23-2022 Miscellaneous Notes Daughter was here picked up splint. Spoke with her about care of fracture. Spoke with pt 's daughter and information listed below given. Pt 's daughter verbalizes understanding. Daughter will cotton picking machine operator down stairs. Please advise if this is [...] lopez. documented in this encounter [facility] 03-22-2022 Miscellaneous Notes OV faxed See ov Dasia with Dr. Fam's office called to check on medical clearance for surgery on Saturday03-26-22. I let her know pt it having a pre op clearance apt today. She is asking to have everything faxed to [phone]. If there is any problems please call [phone]. Maggi Gonzalez LPN documented in this encounter [facility] 03-21-2022 Miscellaneous Notes TC to pt, she states surgery is scheduled for next Saturday (03/26). Appt scheduled for tomorrow (03/22) @ 4:20 with PCP. She is complicated enough, I would prefer to do a preop visit. Received fax from [facility] requesting medical clearance letter and any other pertinent information for patient to proceed with a repeat laminectomy L3-4 left side. They did not fax any type of form to be signed. Ok for letter? Advise. Lizeth Washington documented in this encounter [facility] 03-12-2022 Miscellaneous Notes Shanel is asking for a 90 script for all of the medication. Pharmacy verified in [facility] Patient has been identified by name [...] Pss documented in this encounter [facility] 03-06-2022 Miscellaneous Notes 2 week supply sent. Jeana Mendoza APRN.ANGI [place] spoke with patient and she reports that she did call [facility] Patient Assistance program for Januvia. Patient reports that the automated message stated that prescription refill was now in process. Patient notes that [facility] did not mention how [...] that patient would need to call [facility] to request Januvia refill. Patient notes that she will tell [facility] that she is out of [...] know what she finds out from [facility]. documented in this encounter [facility] 02-16-2022 History of Present illness Narrative [...] bedtime. Blood-Glucose Meter (ACCU-CHEK GUILLERMINA PLUS METER) [facility] Use daily as instructed. DX:E11.40 Insulin: No [...] as needed. Blood-Glucose Meter (ACCU-CHEK GUILLERMINA MONITORING) [facility] [place] [place] Kit USE DIRECTED No current facility-administered medications for this visit. FAMILY HISTORY Problem Relation Age of Onset Arthritis Mother Hypertension Father Stroke Father Diabetes Father at 71 of diabetes Heart Father ME Arthritis Maternal Grandmother other (Other) Maternal Grandmother [...] as needed for worsening/no improvement. Jeana Mendoza APRN.PET COUNSELOR documented in this encounter [facility] 02-09-2022 Miscellaneous Notes Appointment has been [...] pend. documented in this encounter [facility] 02-01-2022 Miscellaneous Notes noted Patient reports [...] you. documented in this encounter [facility] 01-18-2022 Instructions Kathie Julian MD - 01/18/2022 11:54 AM EDT Call with an update next week on the bowels. Call if worsens. documented in this encounter [facility] 01-18-2022 Nurse Note Bowels have changed noticed that are very thin skinny formed. Left leg itching 2-3 weeks. No visible rash. Elbow is unit tender from fall. Bleed again through the night. Still on clindamycin for her elbow also. documented in this encounter [facility] 01-18-2022 History of Present illness Narrative [...] 2-3 weeks. No visible rash. Elbow is unit tender from fall. Bleed again through the [...] bedtime. Blood-Glucose Meter (ACCU-CHEK GUILLERMINA PLUS METER) [facility] Use daily as instructed. DX:E11.40 Insulin: No [...] as needed. Blood-Glucose Meter (ACCU-CHEK GUILLERMINA MONITORING) [facility] [place] [place] Kit USE DIRECTED No current facility-administered medications [...] Father at 71 of diabetes Heart Father ME Arthritis Maternal Grandmother other (Other) Maternal Grandmother [...] Julian documented in this encounter [facility] 01-17-2022 Miscellaneous Notes Pt called in [...] am. documented in this encounter [facility] 01-12-2022 Miscellaneous Notes Patient was notified [employer] Ma 1. Sugars are up. Watch diet and call sugars in two weeks. Get a1c in three months. 2. Protein in urine is better. Stay on bp meds 3. Red blood cells are smaller. Check iron in the week or two . documented in this encounter [facility] 01-10-2022 History of Present illness Narrative [...] Father at 71 of diabetes Heart Father ME Arthritis Maternal Grandmother other (Other) Maternal Grandmother [...] Julian documented in this encounter [facility] 01-05-2022 History of Present illness Narrative [...] - patient is agreeable to go to [place] ER. Daughter will drive her Arpita Harvey APRN.CNP Prescription instructions reviewed with patient as applicable. Patient advised if symptoms do not improve or if symptoms worsen sooner, to contact their primary care physician. Potential red flag symptoms discussed with the patient. Reviewed appropriate action plan to take if red flag symptoms occur. Patient agreeable to treatment plan. documented in this encounter [facility] 01-04-2022 Miscellaneous Notes Patient calls to report that her left elbow isn't getting any better since her appointment at end of November. Patient reports that the scabbed area is now open and draining a small amount of yellow drainage. Redness noted to christopher-wound. PCP with no available appointments. Patient declined scheduling with PA. Patient requesting appointment with another provider in [facility]. Scheduled tomorrow per request. Jaylin Camacho RN documented in this encounter [facility] 12-18-2021 Miscellaneous Notes Script sent. Jeana Mendoza APRN.ANGI Scheduled 01/10/22 Pharmacy verified in [facility] Patient has been identified by name [...] Pss documented in this encounter [facility] 12-12-2021 Miscellaneous Notes Patient has been identified by name and date of : Yes Pending Prescriptions Disp Refills VALSARTAN 320 MG TABLET 90 tablet 3 Sig: Take 1 tablet by mouth once daily. TRIP: No RX INSTRUCTIONS: Patient requesting a call when RX is approved and sent to the pharmacy. Please call patient at: [phone]. Sheree Gonzalez Pss documented in this encounter [facility] 12-09-2021 History of Present illness Narrative This note was created using [employer]. Subjective Shanel Felton is a 81 year [...] Father at 71 of diabetes Heart Father ME Arthritis Maternal Grandmother other (Other) Maternal Grandmother [...] PA-C documented in this encounter [facility] 11-10-2021 Miscellaneous Notes Voicemails left 11/10/2021 by both patient and Ibis from [facility] in Dr. Mark's office in [place], [place] Requesting records from Dr. Pappas and Pattie Freed PA-C office to be faxed to [phone] Records sent via fax at this time documented in this encounter [facility] 11-09-2021 History of Present illness Narrative POPULATION HEALTH NAVIGATION OUTREACH Action/FYI [facility] Support: Called pt to schedule an appt [...] PM documented in this encounter [facility] 11-08-2021 Instructions Jeana Mendoza APRN.CNP - 11/08/2021 4:09 PM EDT 1. Please help schedule with pain management and ortho here in [place]. documented in this encounter [facility] 11-08-2021 History of Present illness Narrative [...] bedtime. Blood-Glucose Meter (ACCU-CHEK GUILLERMINA PLUS METER) [facility] Use daily as instructed. DX:E11.40 Insulin: No [...] as needed. Blood-Glucose Meter (ACCU-CHEK GUILLERMINA MONITORING) [facility] [place] [place] Kit USE DIRECTED gabapentin (NEURONTIN) 300 mg capsule Take 2 capsules by mouth daily at bedtime for 180 days. Patient also takes one pill in the morning as needed No current facility-administered medications for this visit. FAMILY HISTORY Problem Relation Age of Onset Arthritis Mother Hypertension Father Stroke Father Diabetes Father at 71 of diabetes Heart Father ME Arthritis Maternal Grandmother other (Other) Maternal Grandmother [...] APRN.ANGI This note was partially generated using [employer] voice recognition system. Note was reviewed for accuracy. There may be minor misspellings or grammar miscues with [employer] voice recognition. documented in this encounter [facility] 11-08-2021 Miscellaneous Notes Protocol Recommended: See [...] bowel function 7. :n/a Protocols used: LEG [id number] documented in this encounter [facility] 11-01-2021 Miscellaneous Notes Addended by: AMARA RAMIRES on: 11/01/2021 11:02 AM Modules accepted: Orders documented in this encounter [facility] 11-01-2021 History of Present illness Narrative [...] Planned: 8 Planned Treatment Interventions: Therapeutic exercise (50831);Neuromuscular re-education (64773);Manual therapy (22627);Therapeutic activities (17593);Self-mcfp management (64906);Gait Training (82468);Patient/Family/Caregiver Education PLAN FOR NEXT VISIT: Will continue [...] ago laminectomy surgery multiple levels) Preferred Language: Tunisian Employment: Retired Recreation / Current Exercise: bike [...] PT documented in this encounter [facility] documented as of this encounter (statuses as of 01/10/2022) [facility]04-19[facility]2022 History of Past illness Narrative* Problem Noted Date Resolved Date Acute left-sided low back pain with left-sided s ciatica 10/31/2021 01/08/2022 Acute pancreatitis 05/03/2021 01/08/2022 Overview: 04/28/2021 presented to [facility] ED with complaint of mid abdominal pain, nausea and dry heaves with intermittent vomiting over 2 days. Has followed with Dr. Rich gastroenterology as outpatient. Vital signs 90 4V-52-30-126/59-100% RA. Exam is unremarkable. WBC 6.6 Hgb [...] Overview: Added automatically from request for surgery [id number] Acute pain of right knee 05/08/2017 017 [...] encounter (statuses as of 01/12/2022) [facility] History of Past illness Narrative* Problem Noted Date Resolved Date Acute left-sided low back pain with left-sided s ciatica 10/31/2021 01/08/2022 Acute pancreatitis 05/03/2021 01/08/2022 Overview: 04/28/2021 presented to [facility] ED with complaint of mid abdominal pain, nausea and dry heaves with intermittent vomiting over 2 days. Has followed with Dr. Rich gastroenterology as outpatient. Vital signs 90 1K-98-09-126/59-100% RA. Exam is unremarkable. WBC 6.6 Hgb [...] Overview: Added automatically from request for surgery [id number] Acute pain of right knee 05/08/2017 017 [...] encounter (statuses as of 01/18/2022) [facility] History of Past illness Narrative* Problem Noted Date Resolved Date Acute left-sided low back pain with left-sided s ciatica 10/31/2021 01/08/2022 Acute pancreatitis 05/03/2021 01/08/2022 Overview: 04/28/2021 presented to [facility] ED with complaint of mid abdominal pain, nausea and dry heaves with intermittent vomiting over 2 days. Has followed with Dr. Rich gastroenterology as outpatient. Vital signs 90 5X-48-63-126/59-100% RA. Exam is unremarkable. WBC 6.6 Hgb [...] Overview: Added automatically from request for surgery [id number] Acute pain of right knee 05/08/2017 017 [...] encounter (statuses as of 02/01/2022) [facility] History of Past illness Narrative* Problem Noted Date Resolved Date Acute left-sided low back pain with left-sided s ciatica 10/31/2021 01/08/2022 Acute pancreatitis 05/03/2021 01/08/2022 Overview: 04/28/2021 presented to [facility] ED with complaint of mid abdominal pain, nausea and dry heaves with intermittent vomiting over 2 days. Has followed with Dr. Rich gastroenterology as outpatient. Vital signs 90 9V-25-98-126/59-100% RA. Exam is unremarkable. WBC 6.6 Hgb [...] Overview: Added automatically from request for surgery [id number] Acute pain of right knee 05/08/2017 017 [...] encounter (statuses as of 02/09/2022) [facility] History of Past illness Narrative* Problem Noted Date Resolved Date Acute left-sided low back pain with left-sided s ciatica 10/31/2021 01/08/2022 Acute pancreatitis 05/03/2021 01/08/2022 Overview: 04/28/2021 presented to [facility] ED with complaint of mid abdominal pain, nausea and dry heaves with intermittent vomiting over 2 days. Has followed with Dr. Rich gastroenterology as outpatient. Vital signs 90 9Y-67-72-126/59-100% RA. Exam is unremarkable. WBC 6.6 Hgb [...] Overview: Added automatically from request for surgery [id number] Acute pain of right knee 05/08/2017 017 [...] encounter (statuses as of 02/16/2022) [facility] History of Past illness Narrative* Problem Noted Date Resolved Date Acute left-sided low back pain with left-sided s ciatica 10/31/2021 01/08/2022 Acute pancreatitis 05/03/2021 01/08/2022 Overview: 04/28/2021 presented to [facility] ED with complaint of mid abdominal pain, nausea and dry heaves with intermittent vomiting over 2 days. Has followed with Dr. Rich gastroenterology as outpatient. Vital signs 90 4Y-60-23-126/59-100% RA. Exam is unremarkable. WBC 6.6-Hgb 12.9-HCT [...] Overview: Added automatically from request for surgery [id number] Acute pain of right knee 05/08/2017 017 [...] encounter (statuses as of 03/07/2022) [facility] History of Past illness Narrative* Problem Noted Date Resolved Date Acute left-sided low back pain with left-sided s ciatica 10/31/2021 01/08/2022 Acute pancreatitis 05/03/2021 01/08/2022 Overview: 04/28/2021 presented to [facility] ED with complaint of mid abdominal pain, nausea and dry heaves with intermittent vomiting over 2 days. Has followed with Dr. Rich gastroenterology as outpatient. Vital signs 90 2Z-03-24-126/59-100% RA. Exam is unremarkable. WBC 6.6-Hgb 12.9-HCT [...] Overview: Added automatically from request for surgery [id number] Acute pain of right knee 05/08/2017 017 [...] encounter (statuses as of 03/12/2022) [facility] History of Past illness Narrative* Problem Noted Date Resolved Date Acute left-sided low back pain with left-sided s ciatica 10/31/2021 01/08/2022 Acute pancreatitis 05/03/2021 01/08/2022 Overview: 04/28/2021 presented to [facility] ED with complaint of mid abdominal pain, nausea and dry heaves with intermittent vomiting over 2 days. Has followed with Dr. Rich gastroenterology as outpatient. Vital signs 90 0O-17-16-126/59-100% RA. Exam is unremarkable. WBC 6.6-Hgb 12.9-HCT [...] Overview: Added automatically from request for surgery [id number] Acute pain of right knee 05/08/2017 017 [...] encounter (statuses as of 03/12/2022) [facility] of Past illness Narrative* Problem Noted Date Resolved Date Acute left-sided low back pain with left-sided s ciatica 10/31/2021 01/08/2022 Acute pancreatitis 05/03/2021 01/08/2022 Overview: 04/28/2021 presented to [facility] ED with complaint of mid abdominal pain, nausea and dry heaves with intermittent vomiting over 2 days. Has followed with Dr. Rich gastroenterology as outpatient. Vital signs 90 8S-80-22-126/59-100% RA. Exam is unremarkable. WBC 6.6-Hgb 12.9-HCT [...] Overview: Added automatically from request for surgery [id number] Acute pain of right knee 05/08/2017 017 [...] encounter (statuses as of 03/21/2022) [facility] of Past illness Narrative* Problem Noted Date Resolved Date Acute left-sided low back pain with left-sided s ciatica 10/31/2021 01/08/2022 Acute pancreatitis 05/03/2021 01/08/2022 Overview: 04/28/2021 presented to [facility] ED with complaint of mid abdominal pain, nausea and dry heaves with intermittent vomiting over 2 days. Has followed with Dr. Rich gastroenterology as outpatient. Vital signs 90 6R-39-68-126/59-100% RA. Exam is unremarkable. WBC 6.6-Hgb 12.9-HCT [...] Overview: Added automatically from request for surgery [id number] Acute pain of right knee 05/08/2017 017 [...] encounter (statuses as of 03/22/2022) [facility] History of Past illness Narrative* Problem Noted Date Resolved Date Acute left-sided low back pain with left-sided s ciatica 10/31/2021 01/08/2022 Acute pancreatitis 05/03/2021 01/08/2022 Overview: 04/28/2021 presented to [facility] ED with complaint of mid abdominal pain, nausea and dry heaves with intermittent vomiting over 2 days. Has followed with Dr. Rich gastroenterology as outpatient. Vital signs 90 5U-07-50-126/59-100% RA. Exam is unremarkable. WBC 6.6-Hgb 12.9-HCT [...] Overview: Added automatically from request for surgery [id number] Acute pain of right knee 05/08/2017 017 [...] encounter (statuses as of 03/23/2022) [facility] History of Past illness Narrative* Problem Noted Date Resolved Date Acute left-sided low back pain with left-sided s ciatica 10/31/2021 01/08/2022 Acute pancreatitis 05/03/2021 01/08/2022 Overview: 04/28/2021 presented to [facility] ED with complaint of mid abdominal pain, nausea and dry heaves with intermittent vomiting over 2 days. Has followed with Dr. Rich gastroenterology as outpatient. Vital signs 90 7B-94-34-126/59-100% RA. Exam is unremarkable. WBC 6.6-Hgb 12.9-HCT [...] Overview: Added automatically from request for surgery [id number] Acute pain of right knee 05/08/2017 Decreased [...] encounter (statuses as of 04/03/2022) [facility] of Past illness Narrative* Problem Noted Date Resolved Date Acute left-sided low back pain with left-sided s ciatica 10/31/2021 01/08/2022 Acute pancreatitis 05/03/2021 01/08/2022 Overview: 04/28/2021 presented to [facility] ED with complaint of mid abdominal pain, nausea and dry heaves with intermittent vomiting over 2 days. Has followed with Dr. Rich gastroenterology as outpatient. Vital signs 90 8E-82-35-126/59-100% RA. Exam is unremarkable. WBC 6.6-Hgb 12.9-HCT [...] Overview: Added automatically from request for surgery [id number] Acute pain of right knee 05/08/2017 017 [...] encounter (statuses as of 04/05/2022) [facility] of Past illness Narrative* Problem Noted Date Resolved Date Acute left-sided low back pain with left-sided s ciatica 10/31/2021 01/08/2022 Acute pancreatitis 05/03/2021 01/08/2022 Overview: 04/28/2021 presented to [facility] ED with complaint of mid abdominal pain, nausea and dry heaves with intermittent vomiting over 2 days. Has followed with Dr. Rich gastroenterology as outpatient. Vital signs 90 6C-21-62-126/59-100% RA. Exam is unremarkable. WBC 6.6-Hgb 12.9-HCT [...] Overview: Added automatically from request for surgery [id number] Acute pain of right knee 05/08/2017 017 [...] encounter (statuses as of 04/24/2022) [facility] of Past illness Narrative* Problem Noted Date Resolved Date Acute left-sided low back pain with left-sided s ciatica 10/31/2021 01/08/2022 Acute pancreatitis 05/03/2021 01/08/2022 Overview: 04/28/2021 presented to [facility] ED with complaint of mid abdominal pain, nausea and dry heaves with intermittent vomiting over 2 days. Has followed with Dr. Rich gastroenterology as outpatient. Vital signs 90 1F-82-06-126/59-100% RA. Exam is unremarkable. WBC 6.6-Hgb 12.9-HCT [...] Overview: Added automatically from request for surgery [id number] Acute pain of right knee 05/08/2017 017 [...] encounter (statuses as of 05/03/2022) [facility] History of Past illness Narrative* Problem Noted Date Resolved Date Acute left-sided low back pain with left-sided s ciatica 10/31/2021 01/08/2022 Acute pancreatitis 05/03/2021 01/08/2022 Overview: 04/28/2021 presented to [facility] ED with complaint of mid abdominal pain, nausea and dry heaves with intermittent vomiting over 2 days[address] Has followed with Dr[address] Rich gastroenterology as outpatient. Vital signs 90 1E-24-11-126/59-100% RA. Exam is unremarkable. WBC 6.6-Hgb 12.9-HCT [...] Overview: Added automatically from request for surgery [id number] Acute pain of right knee 05/08/2017 017 [...] encounter (statuses as of 05/24/2022) [facility] History of Past illness Narrative* Problem Noted Date Resolved Date Acute left-sided low back pain with left-sided s ciatica 10/31/2021 01/08/2022 Acute pancreatitis 05/03/2021 01/08/2022 Overview: 04/28/2021 presented to [facility] ED with complaint of mid abdominal pain, nausea and dry heaves with intermittent vomiting over 2 days. Has followed with Dr. Rich gastroenterology as outpatient. Vital signs 90 1H-23-86-126/59-100% RA. Exam is unremarkable. WBC 6.6-Hgb 12.9-HCT [...] Overview: Added automatically from request for surgery [id number] Acute pain of right knee 05/08/2017 017 [...] encounter (statuses as of 06/06/2022) [facility] History of Past illness Narrative* Problem Noted Date Resolved Date Acute left-sided low back pain with left-sided s ciatica 10/31/2021 01/08/2022 Acute pancreatitis 05/03/2021 01/08/2022 Overview: 04/28/2021 presented to [facility] ED with complaint of mid abdominal pain, nausea and dry heaves with intermittent vomiting over 2 days. Has followed with Dr. Rich gastroenterology as outpatient. Vital signs 90 0N-54-99-126/59-100% RA. Exam is unremarkable. WBC 6.6-Hgb 12.9-HCT [...] Overview: Added automatically from request for surgery [id number] Acute pain of right knee 05/08/2017 017 [...] encounter (statuses as of 07/08/2022) [facility] History of Past illness Narrative* Problem Noted Date Resolved Date Acute left-sided low back pain with left-sided s ciatica 10/31/2021 01/08/2022 Acute pancreatitis 05/03/2021 01/08/2022 Overview: 04/28/2021 presented to [facility] ED with complaint of mid abdominal pain, nausea and dry heaves with intermittent vomiting over 2 days. Has followed with Dr. Rich gastroenterology as outpatient. Vital signs 90 0O-55-83-126/59-100% RA. Exam is unremarkable. WBC 6.6-Hgb 12.9-HCT [...] Overview: Added automatically from request for surgery [id number] Acute pain of right knee 05/08/2017 017 [...] encounter (statuses as of 07/18/2022) [facility] History of Past illness Narrative* Problem Noted Date Resolved Date Acute left-sided low back pain with left-sided s ciatica 10/31/2021 01/08/2022 Acute pancreatitis 05/03/2021 01/08/2022 Overview: 04/28/2021 presented to [facility] ED with complaint of mid abdominal pain, nausea and dry heaves with intermittent vomiting over 2 days. Has followed with Dr. Rich gastroenterology as outpatient. Vital signs 90 4Z-06-77-126/59-100% RA. Exam is unremarkable. WBC 6.6-Hgb 12.9-HCT [...] Overview: Added automatically from request for surgery [id number] Acute pain of right knee 05/08/2017 017 [...] encounter (statuses as of 07/20/2022) [facility] History of Past illness Narrative* Problem Noted Date Resolved Date Acute left-sided low back pain with left-sided s ciatica 10/31/2021 01/08/2022 Acute pancreatitis 05/03/2021 01/08/2022 Overview: 04/28/2021 presented to [facility] ED with complaint of mid abdominal pain, nausea and dry heaves with intermittent vomiting over 2 days. Has followed with Dr. Rich gastroenterology as outpatient. Vital signs 90 1J-15-65-126/59-100% RA. Exam is unremarkable. WBC 6.6-Hgb 12.9-HCT [...] Overview: Added automatically from request for surgery [id number] Acute pain of right knee 05/08/2017 017 [...] encounter (statuses as of 07/30/2022) [facility] History of Past illness Narrative* Problem Noted Date Resolved Date Acute left-sided low back pain with left-sided s ciatica 10/31/2021 01/08/2022 Acute pancreatitis 05/03/2021 01/08/2022 Overview: 04/28/2021 presented to [facility] ED with complaint of mid abdominal pain, nausea and dry heaves with intermittent vomiting over 2 days. Has followed with Dr. Rich gastroenterology as outpatient. Vital signs 90 0P-12-48-126/59-100% RA. Exam is unremarkable. WBC 6.6-Hgb 12.9-HCT [...] Overview: Added automatically from request for surgery [id number] Acute pain of right knee 05/08/2017 017 [...] encounter (statuses as of 08/20/2022) [facility] History of Past illness Narrative* Problem Noted Date Resolved Date Acute left-sided low back pain with left-sided s ciatica 10/31/2021 01/08/2022 Acute pancreatitis 05/03/2021 01/08/2022 Overview: 04/28/2021 presented to [facility] ED with complaint of mid abdominal pain, nausea and dry heaves with intermittent vomiting over 2 days. Has followed with Dr. Rich gastroenterology as outpatient. Vital signs 90 8G-60-62-126/59-100% RA. Exam is unremarkable. WBC 6.6-Hgb 12.9-HCT [...] Overview: Added automatically from request for surgery [id number] Acute pain of right knee 05/08/2017 017 [...] encounter (statuses as of 08/31/2022) [facility] History of Past illness Narrative* Problem Noted Date Resolved Date Acute left-sided low back pain with left-sided s ciatica 10/31/2021 01/08/2022 Acute pancreatitis 05/03/2021 01/08/2022 Overview: 04/28/2021 presented to [facility] ED with complaint of mid abdominal pain, nausea and dry heaves with intermittent vomiting over 2 days. Has followed with Dr. Rich gastroenterology as outpatient. Vital signs 90 8U-39-94-126/59-100% RA. Exam is unremarkable. WBC 6.6-Hgb 12.9-HCT [...] Overview: Added automatically from request for surgery [id number] Acute pain of right knee 05/08/2017 017 [...] encounter (statuses as of 09/12/2022) [facility] History of Past illness Narrative* Problem Noted Date Resolved Date Acute left-sided low back pain with left-sided s ciatica 10/31/2021 01/08/2022 Acute pancreatitis 05/03/2021 01/08/2022 Overview: 04/28/2021 presented to [facility] ED with complaint of mid abdominal pain, nausea and dry heaves with intermittent vomiting over 2 days. Has followed with Dr. Rich gastroenterology as outpatient. Vital signs 90 9Z-24-28-126/59-100% RA. Exam is unremarkable. WBC 6.6-Hgb 12.9-HCT [...] Overview: Added automatically from request for surgery [id number] Acute pain of right knee 05/08/2017 017 [...] encounter (statuses as of 09/20/2022) [facility] History of Past illness Narrative* Problem Noted Date Resolved Date Acute left-sided low back pain with left-sided s ciatica 10/31/2021 01/08/2022 Acute pancreatitis 05/03/2021 01/08/2022 Overview: 04/28/2021 presented to [facility] ED with complaint of mid abdominal pain, nausea and dry heaves with intermittent vomiting over 2 days. Has followed with Dr. Rich gastroenterology as outpatient. Vital signs 90 4M-05-38-126/59-100% RA. Exam is unremarkable. WBC 6.6-Hgb 12.9-HCT [...] Overview: Added automatically from request for surgery [id number] Acute pain of right knee 05/08/2017 017 [...] encounter (statuses as of 09/21/2022) [facility] History of Past illness Narrative* Problem Noted Date Resolved Date Acute left-sided low back pain with left-sided s ciatica 10/31/2021 01/08/2022 Acute pancreatitis 05/03/2021 01/08/2022 Overview: 04/28/2021 presented to [facility] ED with complaint of mid abdominal pain, nausea and dry heaves with intermittent vomiting over 2 days. Has followed with Dr. Rich gastroenterology as outpatient. Vital signs 90 9B-89-19-126/59-100% RA. Exam is unremarkable. WBC 6.6-Hgb 12.9-HCT [...] Overview: Added automatically from request for surgery [id number] Acute pain of right knee 05/08/2017 017 [...] encounter (statuses as of 10/03/2022) [facility] History of Past illness Narrative* Problem Noted Date Resolved Date Acute left-sided low back pain with left-sided s ciatica 10/31/2021 01/08/2022 Acute pancreatitis 05/03/2021 01/08/2022 Overview: 04/28/2021 presented to [facility] ED with complaint of mid abdominal pain, nausea and dry heaves with intermittent vomiting over 2 days. Has followed with Dr. Rich gastroenterology as outpatient. Vital signs 90 6J-13-20-126/59-100% RA. Exam is unremarkable. WBC 6.6-Hgb 12.9-HCT [...] Overview: Added automatically from request for surgery [id number] Acute pain of right knee 05/08/2017 017 [...] encounter (statuses as of 10/09/2022) [facility] History of Past illness Narrative* Problem Noted Date Resolved Date Acute left-sided low back pain with left-sided s ciatica 10/31/2021 01/08/2022 Acute pancreatitis 05/03/2021 01/08/2022 Overview: 04/28/2021 presented to [facility] ED with complaint of mid abdominal pain, nausea and dry heaves with intermittent vomiting over 2 days. Has followed with Dr. Rich gastroenterology as outpatient. Vital signs 90 5E-46-23-126/59-100% RA. Exam is unremarkable. WBC 6.6-Hgb 12.9-HCT [...] Overview: Added automatically from request for surgery [id number] Acute pain of right knee 05/08/2017 017 [...] encounter (statuses as of 10/12/2022) [facility] History of Past illness Narrative* Problem Noted Date Resolved Date Acute left-sided low back pain with left-sided s ciatica 10/31/2021 01/08/2022 Acute pancreatitis 05/03/2021 01/08/2022 Overview: 04/28/2021 presented to [facility] ED with complaint of mid abdominal pain, nausea and dry heaves with intermittent vomiting over 2 days. Has followed with Dr. Rich gastroenterology as outpatient. Vital signs 90 9V-73-75-126/59-100% RA. Exam is unremarkable. WBC 6.6-Hgb 12.9-HCT [...] Overview: Added automatically from request for surgery [id number] Acute pain of right knee 05/08/2017 017 [...] encounter (statuses as of 10/18/2022) [facility] History of Past illness Narrative* Problem Noted Date Resolved Date Acute left-sided low back pain with left-sided s ciatica 10/31/2021 01/08/2022 Acute pancreatitis 05/03/2021 01/08/2022 Overview: 04/28/2021 presented to [facility] ED with complaint of mid abdominal pain, nausea and dry heaves with intermittent vomiting over 2 days. Has followed with Dr. Rich gastroenterology as outpatient. Vital signs 90 0N-92-50-126/59-100% RA. Exam is unremarkable. WBC 6.6-Hgb 12.9-HCT [...] Overview: Added automatically from request for surgery [id number] Acute pain of right knee 05/08/2017 Decreased [...] encounter (statuses as of 12/14/2022) [facility] History of Past illness Narrative* Problem Noted Date Resolved Date Acute left-sided low back pain with left-sided s ciatica 10/31/2021 01/08/2022 Acute pancreatitis 05/03/2021 01/08/2022 Overview: 04/28/2021 presented to [facility] ED with complaint of mid abdominal pain, nausea and dry heaves with intermittent vomiting over 2 days. Has followed with Dr. Rich gastroenterology as outpatient. Vital signs 90 1Y-42-11-126/59-100% RA. Exam is unremarkable. WBC 6.6-Hgb 12.9-HCT [...] Overview: Added automatically from request for surgery [id number] Acute pain of right knee 05/08/2017 017 [...] encounter (statuses as of 12/15/2022) [facility] History of Past illness Narrative* Problem Noted Date Diagnosed Date Resolved Date Acute left-sided low back pa in with left-sided sciatica 10/31/2021 01/08/2022 Acute pancreatitis 05/03/2021 2 Overview: 04/28/2021 presented to [facility] ED with complaint of mid abdominal pain, nausea and dry heaves with intermittent vomiting over 2 days. Has followed with Dr. Rich gastroenterology as outpatient. Vital signs 90 9M-51-91-126/59-100% RA. Exam is unremarkable. WBC 6.6-Hgb 12.9-HCT [...] Overview: Added automatically from request for surgery [id number] Acute pain of right knee 05/08/201710/2016 Decreased [...] encounter (statuses as of 02/11/2023) [facility] History of Past illness Narrative* Problem Noted Date Diagnosed Date Resolved Date Acute left-sided low back pa in with left-sided sciatica 10/31/2021 01/08/2022 Acute pancreatitis 05/03/2021 Overview: 04/28/2021 presented to [facility] ED with complaint of mid abdominal pain, nausea and dry heaves with intermittent vomiting over 2 days. Has followed with Dr. Rich gastroenterology as outpatient. Vital signs 90 4M-44-67-126/59-100% RA. Exam is unremarkable. WBC 6.6-Hgb 12.9-HCT [...] Overview: Added automatically from request for surgery [id number] Acute pain of right knee 05/08/201710/2016 Decreased [...] encounter (statuses as of 02/18/2023) [facility] History of Past illness Narrative* Problem Noted Date Diagnosed Date Resolved Date Acute left-sided low back pa in with left-sided sciatica 10/31/2021 01/08/2022 Acute pancreatitis 05/03/2021 2 Overview: 04/28/2021 presented to [facility] ED with complaint of mid abdominal pain, nausea and dry heaves with intermittent vomiting over 2 days. Has followed with Dr. Rich gastroenterology as outpatient. Vital signs 90 0I-44-35-126/59-100% RA. Exam is unremarkable. WBC 6.6-Hgb 12.9-HCT [...] Overview: Added automatically from request for surgery [id number] Acute pain of right knee 05/08/201710/2016 Decreased [...] encounter (statuses as of 02/20/2023) [facility] History of Past illness Narrative* Problem Noted Date Diagnosed Date Resolved Date Acute left-sided low back pa in with left-sided sciatica 10/31/2021 01/08/2022 Acute pancreatitis 05/03/2021 Overview: 04/28/2021 presented to [facility] ED with complaint of mid abdominal pain, nausea and dry heaves with intermittent vomiting over 2 days. Has followed with Dr. Rich gastroenterology as outpatient. Vital signs 90 8P-80-06-126/59-100% RA. Exam is unremarkable. WBC 6.6-Hgb 12.9-HCT [...] Overview: Added automatically from request for surgery [id number] Acute pain of right knee 05/08/201710/2016 Decreased [...] encounter (statuses as of 03/07/2023) [facility] History of Past illness Narrative* Problem Noted Date Diagnosed Date Resolved Date Acute left-sided low back pa in with left-sided sciatica 10/31/2021 01/08/2022 Acute pancreatitis 05/03/2021 2 Overview: 04/28/2021 presented to [facility] ED with complaint of mid abdominal pain, nausea and dry heaves with intermittent vomiting over 2 days. Has followed with Dr. Rich gastroenterology as outpatient. Vital signs 90 2H-57-70-126/59-100% RA. Exam is unremarkable. WBC 6.6-Hgb 12.9-HCT [...] Overview: Added automatically from request for surgery [id number] Acute pain of right knee 05/08/201710/2016 Decreased [...] encounter (statuses as of 05/18/2023) [facility] of Past illness Narrative* Problem Noted Date Diagnosed Date Resolved Date Acute left-sided low back pa in with left-sided sciatica 10/31/2021 01/08/2022 Acute pancreatitis 05/03/2021 2 Overview: 04/28/2021 presented to [facility] ED with complaint of mid abdominal pain, nausea and dry heaves with intermittent vomiting over 2 days. Has followed with Dr. Rich gastroenterology as outpatient. Vital signs 90 6Z-10-37-126/59-100% RA. Exam is unremarkable. WBC 6.6-Hgb 12.9-HCT [...] Overview: Added automatically from request for surgery [id number] Acute pain of right knee 05/08/201710/2016 Decreased [...] encounter (statuses as of 05/23/2023) [facility] History of Past illness Narrative* Problem Noted Date Diagnosed Date Resolved Date Acute left-sided low back pa in with left-sided sciatica 10/31/2021 01/08/2022 Acute pancreatitis 05/03/2021 Overview: 04/28/2021 presented to [facility] ED with complaint of mid abdominal pain, nausea and dry heaves with intermittent vomiting over 2 days. Has followed with Dr. Rich gastroenterology as outpatient. Vital signs 90 9N-50-60-126/59-100% RA. Exam is unremarkable. WBC 6.6-Hgb 12.9-HCT [...] Overview: Added automatically from request for surgery [id number] Acute pain of right knee 05/08/201710/2016 Decreased [...] encounter (statuses as of 05/23/2023) [facility] History of Past illness Narrative* Problem Noted Date Diagnosed Date Resolved Date Acute left-sided low back pa in with left-sided sciatica 10/31/2021 01/08/2022 Acute pancreatitis 05/03/2021 2 Overview: 04/28/2021 presented to [facility] ED with complaint of mid abdominal pain, nausea and dry heaves with intermittent vomiting over 2 days. Has followed with Dr. Rich gastroenterology as outpatient. Vital signs 90 1X-30-95-126/59-100% RA. Exam is unremarkable. WBC 6.6-Hgb 12.9-HCT [...] Overview: Added automatically from request for surgery [id number] Acute pain of right knee 05/08/201710/2016 Decreased [...] encounter (statuses as of 06/05/2023) [facility] of Past illness Narrative* Problem Noted Date Diagnosed Date Resolved Date Acute left-sided low back pa in with left-sided sciatica 10/31/2021 01/08/2022 Acute pancreatitis 05/03/2021 Overview: 04/28/2021 presented to [facility] ED with complaint of mid abdominal pain, nausea and dry heaves with intermittent vomiting over 2 days. Has followed with Dr. Rich gastroenterology as outpatient. Vital signs 90 2F-83-25-126/59-100% RA. Exam is unremarkable. WBC 6.6-Hgb 12.9-HCT [...] Overview: Added automatically from request for surgery [id number] Acute pain of right knee 05/08/201710/2016 Decreased [...] encounter (statuses as of 06/14/2023) [facility] History of Past illness Narrative* Problem Noted Date Diagnosed Date Resolved Date Acute left-sided low back pa in with left-sided sciatica 10/31/2021 01/08/2022 Acute pancreatitis 05/03/2021 2 Overview: 04/28/2021 presented to [facility] ED with complaint of mid abdominal pain, nausea and dry heaves with intermittent vomiting over 2 days. Has followed with Dr. Rich gastroenterology as outpatient. Vital signs 90 8Q-94-79-126/59-100% RA. Exam is unremarkable. WBC 6.6-Hgb 12.9-HCT [...] Overview: Added automatically from request for surgery [id number] Acute pain of right knee 05/08/201710/2016 Decreased [...] encounter (statuses as of 06/26/2023) [facility] Miscellaneous Notes* Telephone Encounter - Dasia [...] it is difficult to get transportation to [place] to see Spine. Asking if she can try physical therapy first. If so, please place order and transfer to furniture rental consultant. * Telephone Encounter - Jeana Mendoza APRN.CNP [...] was going to a specialist up in [place] and reports he hasn't helped her one [...] and advise. [facility] Miscellaneous Notes* Telephone Encounter - Lucrecia [...] Lucrecia Henry documented in [facility] Miscellaneous Notes* Telephone Encounter - ANJELICA Oliva - 10/12/2021 3:48 PM EDT Sw spoke with patient in regards to below [employer] P[employer] information. Sw provided patient with below [facility] number for her to call when down to 14 days of medication. Patient thanked David for assistance. * Telephone Encounter - Kathie Julian MD - 10/12/2021 1:09 PM EDT Noted. Thank you * Telephone Encounter - ANJELICA Oliva - 10/12/2021 12:02 PM EDT David spoke with [employer] and patient has been approved for assistance with Januvia September-September. When patient needs refill on medication she is to call [facility] ph. [phone] 14 days before she is out of [facility]. [employer] dain notes that yes, they do use [facility] and they do not [...] 2 bottles of Januvia from a [facility]. Patient had applied to [employer] to see about assistance with Januvia.Patient reports that she has not received any letter from company stating that she was approved for assistance. Sw noted that she wouldcall and speak with [employer] and see what they say about patient assistance for patient. Patient wouldlike to know for how long she is approved. * Telephone Encounter - ANJELICA Oliva - 10/11/2021 12:15 PM EDT Patient called David back to let Sw know that she received 2 bottles of Januvia. Patient reports that the package says from [facility]. Sw called patient to talk with her to see if she has received a letter from [employer] in regards to the Januvia. Patient had applied to [employer] and had sent in her attestation form to [employer]. No answer and call was sent to patient vmail. Sw left patient message that she willcall patient later to discuss. Sw is not sure if [facility] is the pharmacy that [employer] uses. Patient noted that there was not chargeto her for the Januvia. [facility] History of Past illness Narrative* Problem Noted Date Resolved Date Tendonitis, Achilles, right 02/05/201902/13 Knee joint replacement status, right 07/10/2017 07/11/2017 PONV (postoperative nausea and vomiting) 017 03/03/2019 Primary osteoarthritis of right knee 06/12/2017 07/11/2017 Overview: Added automatically from request for surgery [id number] Acute pain of right knee 05/08/2017 017 [...] encounter (statuses as of 10/12/2021) [facility] Narrative* Problem Noted Date Resolved Date Tendonitis, Achilles, right 02/05/201902/13 Knee joint replacement status, right 07/10/2017 07/11/2017 PONV (postoperative nausea and vomiting) 017 03/03/2019 Primary osteoarthritis of right knee 06/12/2017 07/11/2017 Overview: Added automatically from request for surgery [id number] Acute pain of right knee 05/08/2017 017 [...] encounter (statuses as of 10/20/2021) [facility] Narrative* Problem Noted Date Resolved Date Tendonitis, Achilles, right 02/05/201902/13 Knee joint replacement status, right 07/10/2017 07/11/2017 PONV (postoperative nausea and vomiting) 017 03/03/2019 Primary osteoarthritis of right knee 06/12/2017 07/11/2017 Overview: Added automatically from request for surgery [id number] Acute pain of right knee 05/08/2017 017 [...] encounter (statuses as of 11/01/2021) [facility] Narrative* Problem Noted Date Resolved Date Tendonitis, Achilles, right 02/05/201902/13 Knee joint replacement status, right 07/10/2017 07/11/2017 PONV (postoperative nausea and vomiting) 017 03/03/2019 Primary osteoarthritis of right knee 06/12/2017 07/11/2017 Overview: Added automatically from request for surgery [id number] Acute pain of right knee 05/08/2017 017 [...] encounter (statuses as of 11/04/2021) [facility] Narrative* Problem Noted Date Resolved Date Tendonitis, Achilles, right 02/05/201902/13 Knee joint replacement status, right 07/10/2017 07/11/2017 PONV (postoperative nausea and vomiting) 017 03/03/2019 Primary osteoarthritis of right knee 06/12/2017 07/11/2017 Overview: Added automatically from request for surgery [id number] Acute pain of right knee 05/08/2017 017 [...] encounter (statuses as of 11/08/2021) [facility] History of Past illness Narrative* Problem Noted Date Resolved Date Tendonitis, Achilles, right 02/05/201902/13 Knee joint replacement status, right 07/10/2017 07/11/2017 PONV (postoperative nausea and vomiting) 017 03/03/2019 Primary osteoarthritis of right knee 06/12/2017 07/11/2017 Overview: Added automatically from request for surgery [id number] Acute pain of right knee 05/08/2017 017 [...] encounter (statuses as of 11/08/2021) [facility] History of Past illness Narrative* Problem Noted Date Resolved Date Tendonitis, Achilles, right 02/05/201902/13 Knee joint replacement status, right 07/10/2017 07/11/2017 PONV (postoperative nausea and vomiting) 017 03/03/2019 Primary osteoarthritis of right knee 06/12/2017 07/11/2017 Overview: Added automatically from request for surgery [id number] Acute pain of right knee 05/08/2017 017 [...] encounter (statuses as of 11/09/2021) [facility] History of Past illness Narrative* Problem Noted Date Resolved Date Tendonitis, Achilles, right 02/05/201902/13 Knee joint replacement status, right 07/10/2017 07/11/2017 PONV (postoperative nausea and vomiting) 017 03/03/2019 Primary osteoarthritis of right knee 06/12/2017 07/11/2017 Overview: Added automatically from request for surgery [id number] Acute pain of right knee 05/08/2017 017 [...] encounter (statuses as of 11/10/2021) [facility] History of Past illness Narrative* Problem Noted Date Resolved Date Tendonitis, Achilles, right 02/05/201902/13 Knee joint replacement status, right 07/10/2017 07/11/2017 PONV (postoperative nausea and vomiting) 017 03/03/2019 Primary osteoarthritis of right knee 06/12/2017 07/11/2017 Overview: Added automatically from request for surgery [id number] Acute pain of right knee 05/08/2017 017 [...] encounter (statuses as of 12/09/2021) [facility] History of Past illness Narrative* Problem Noted Date Resolved Date Tendonitis, Achilles, right 02/05/201902/13 Knee joint replacement status, right 07/10/2017 07/11/2017 PONV (postoperative nausea and vomiting) 017 03/03/2019 Primary osteoarthritis of right knee 06/12/2017 07/11/2017 Overview: Added automatically from request for surgery [id number] Acute pain of right knee 05/08/2017 017 [...] encounter (statuses as of 12/12/2021) [facility] History of Past illness Narrative* Problem Noted Date Resolved Date Tendonitis, Achilles, right 02/05/201902/13 Knee joint replacement status, right 07/10/2017 07/11/2017 PONV (postoperative nausea and vomiting) 017 03/03/2019 Primary osteoarthritis of right knee 06/12/2017 07/11/2017 Overview: Added automatically from request for surgery [id number] Acute pain of right knee 05/08/2017 017 [...] encounter (statuses as of 12/18/2021) [facility] History of Past illness Narrative* Problem Noted Date Resolved Date Tendonitis, Achilles, right 02/05/201902/13 Knee joint replacement status, right 07/10/2017 07/11/2017 PONV (postoperative nausea and vomiting) 017 03/03/2019 Primary osteoarthritis of right knee 06/12/2017 07/11/2017 Overview: Added automatically from request for surgery [id number] Acute pain of right knee 05/08/2017 017 [...] encounter (statuses as of 01/04/2022) [facility] History of Past illness Narrative* Problem Noted Date Resolved Date Tendonitis, Achilles, right 02/05/201902/13 Knee joint replacement status, right 07/10/2017 07/11/2017 PONV (postoperative nausea and vomiting) 017 03/03/2019 Primary osteoarthritis of right knee 06/12/2017 07/11/2017 Overview: Added automatically from request for surgery [id number] Acute pain of right knee 05/08/2017 017 [...] encounter (statuses as of 01/05/2022) [facility] Depression, unspecified depression type [facility] Diagnosis Acute left-sided low back pain with left-sided sciatica [facility] Diagnosis Acute left-sided low back pain with left-sided sciatica- Primary [facility] Diagnosis Chronic left-sided low back pain with left-sided sciatica- Primary [facility] Diagnosis Olecranon bursitis of left elbow- Primary Olecranon bursitis Acute pain of left shoulder [facility] Diagnosis Left elbow pain- Primary Pain in joint, upper arm [facility]* Diagnosis 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 Type II or unspecified type diabetes mellitus with neurological manifestations, not stated as uncontrolled Pure hypercholesterolemia Essential hypertension, benign Microalbuminuria Proteinuria Malignant neoplasm of overlapping sites of bladder (HCC) Malignant neoplasm of other specified sites of bladder GERD without esophagitis Esophageal reflux [facility] Diagnosis Microcytosis- Primary Other abnormality of red blood cells 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) Type II or unspecified type diabetes mellitus with neurological manifestations, not stated as uncontrolled [facility] Diagnosis Change in bowel function- Primary Other symptoms involving digestive system Olecranon bursitis of left elbow Olecranon bursitis Screening for colon cancer Special screening for malignant neoplasms, colon [facility] Diagnosis Displacement of lumbar intervertebral disc without myelopathy- [facility] Diagnosis Displacement of lumbar intervertebral disc without myelopathy- Primary Chronic left-sided low back pain with left-sided sciatica Chronic left shoulder pain Pain in joint, shoulder region [facility] Diagnosis Controlled type 2 diabetes mellitus without complication, without long-term current use of insulin (HCC) [facility] Diagnosis Pure hypercholesterolemia Anxiety with depression [facility]* Diagnosis Closed nondisplaced fracture of proximal phalanx of right thumb with routine healing, subsequent encounter- Primary [facility]* Diagnosis Essential hypertension, benign [facility] Diagnosis Pure hypercholesterolemia- Primary 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) Type II or unspecified type diabetes mellitus with neurological manifestations, not stated as uncontrolled Essential hypertension, benign Malignant neoplasm of overlapping sites of bladder (HCC) Malignant neoplasm of other specified sites of bladder Displacement of lumbar intervertebral disc without myelopathy Postlaminectomy syndrome, lumbar region Microalbuminuria Proteinuria [facility] Diagnosis Anxiety with depression [facility]* Diagnosis Screening mammogram for breast cancer- Primary [facility]* Diagnosis Controlled type 2 diabetes mellitus without complication, without long-term current use of insulin (HCC) [facility]* Diagnosis Essential hypertension, benign Benign paroxysmal positional vertigo, unspecified laterality GERD without esophagitis Esophageal reflux [facility]* Diagnosis Radiculopathy, lumbar region- Primary [...] cause [facility] Diagnosis Renal insufficiency- Primary Unspecified disorder of kidney and ureter [facility] Diagnosis Esophageal spasm Dyskinesia of esophagus [facility] Diagnosis Esophageal spasm- Primary Dyskinesia of esophagus [facility] Diagnosis Renal insufficiency Unspecified disorder of kidney and ureter [facility] Diagnosis Anxiety with depression [facility] Diagnosis GERD without esophagitis Esophageal reflux documented in this encounter [facility]* Diagnosis Radiculopathy, lumbar region- Primary Thoracic [...] bladder [facility] Diagnosis Headache, unspecified headache type- Primary documented in this encounter [facility] for referral (narrative)* Diagnostic Procedure Only (Urgent) - Closed Specialty Diagnoses / Procedures Referred By Contac t Referred To Contact XR IMAGING Diagnoses Acute pain of left shoulder Procedures XR SHOULDER GENERAL 3V OR MORE AP/TRUE AP/OTHER LEFT RADEX SHOULDER COMPLETE MINIMUM 2 VIEWS Jessica Rivera PA-C [address] [place] [address] Xr Imaging Referral ID Status Reason Start Date Expiration Date V isits Requested Visits Authorized [id number] Closed Auto-Generate d Referral 12/09/2021 01/08/2023 1 1 * Diagnostic Procedure Only (Urgent) - Closed Specialty Diagnoses / Procedures Referred By Contac t Referred To Contact XR IMAGING Diagnoses Olecranon bursitis of left elbow Procedures XR ELBOW SPECIAL VIEWS AP/LAT/OTHER LEFT RADEX ELBOW COMPLETE MINIMUM 3 VIEWS Jessica Rivera PA-C [address] [place] [address] Xr Imaging Referral ID Status Reason Start Date Expiration Date V isits Requested Visits Authorized [id number] Closed Auto-Generate d Referral 12/09/2021 01/08/2023 1 1 [facility] for referral (narrative)* Outpatient Procedure (Routine) - Authorized Specialty Diagnoses / Procedures Referred By Contac t Referred To Contact [facility] Diagnoses Heart murmur Procedures ECHO ECHO TTHRC R-T 2D W/WOM-MODE COMPL SPEC&COLR D Kathie Julian MD [address] [place] [address] [facility] [place] [address] [place] [address] Referral ID Status Reason Start Date Expiration Date Visits Requested Visits Authorized [id number] Authorized Auto-Generat ed Referral 12/13/2022 12/13/2023 1 1 [facility] for referral (narrative)* Diagnostic Procedure Only (Routine) - Closed Specialty Diagnoses / Procedures Referred By Contac Referred To Contact US IMAGING Diagnoses Renal insufficiency Procedures US KIDNEY/BLADDER US RETROPERITONEAL REAL TIME W/[place] [address] [place] [address] [place] [address] Referral ID Status Reason Start Date Expiration Date V isits Requested Visits Authorized [id number] Closed Auto-Generate d Referral 01/28/2023 02/27/2024 1 1 [facility] Summary Purpose Family History No Family History Records FoundNo Family History Records FoundNo Family History Records FoundNo Family History Records Found Advance Directives No Advanced Directives Records FoundDocuments on File Type Date Recorded 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 Advance Directive(s) 07/26/2021 10:03 AM [...] Documents on File Type Date Recorded 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 Advance Directive(s) 07/26/2021 10:03 AM Advance Directive(s) 06/30/2021 6:34 PM Advance Directive(s) 05/01/2021 8:04 AM Advance Directive(s) 02/17/2021 12:29 PM Vt anned 02-17-2021 Advance Directive(s) 02/17/2021 12:26 PM Advance Directive(s) 02/02/2021 2:49 PM Advance Directive(s) 12/17/2018 12:07 PM Advance Directive(s) 09/23/2018 10:20 AM Advance Directive(s) 07/29/2018 4:37 PM Advance Directive(s) 07/10/2017 6:25 AM Advance Directive(s) 09/11/2011 12:00 AM Advance Directive(s) 09/02/2006 12:00 AM Advance Directive(s) 08/29/2006 12:00 AM Documents on File Type Date Recorded 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 Advance Directive(s) 02/17/2021 12:26 PM Advance Directive(s) 09/11/2011 Advance Directive(s) 09/02/2006 Advance Directive(s) 08/29/2006 Documents on File Type Date Recorded 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 Advance Directive(s) 02/17/2021 12:26 PM Advance Directive(s) 09/11/2011 Advance Directive(s) 09/02/2006 Advance Directive(s) 08/29/2006 Reason for Referral Specialty Diagnoses / Procedures Referred By Contac t Referred To Contact [facility] Diagnoses Acute left-sided low back pain with left-sided sciatica Procedures CONSULT TO PHYSICAL THERAPY PHYSICAL THERAPY EVALUATION HIGH COMPLEX 45 MINS Kathie Julian MD [address] [place] [address] [facility] [place] [address] [place] [address] Referral ID Status Reason Start Date Expiration Date Visits Requested Visits Authorized [id number] Authorized PCP Requested Referral Auto-Generate d Referral 10/30/2021 10/30/2022 99 99 Specialty Diagnoses / Procedures Referred By Contac t Referred To Contact Orthopedics Diagnoses Chronic left-sided low back pain with left-sided sciatica Procedures CONSULT TO ORTHOPAEDICS OFFICE/OUTPATIENT [facility] 60-74 MINUTES Jeana Mendoza APRN.PET COUNSELOR [address] [place] [address] Referral ID Status Reason Start Date Expiration Date Visits Requested Visits Authorized [id number] Authorized PCP Requested Referral 11/08/2021 11/08/2022 1 1 Specialty Diagnoses / Procedures Referred By Contac t Referred To Contact Pain Management Diagnoses Chronic left-sided low back pain with left-sided sciatica Procedures CONSULT TO PAIN [facility]GT OFFICE/OUTPATIENT [facility] 60-74 MINUTES Jeana Mendoza, BENY.PET COUNSELOR [address] [place] [address] Referral ID Status Reason Start Date Expiration Date Visits Requested Visits Authorized [id number] Authorized PCP Requested Referral 11/08/2021 11/08/2022 1 1 Specialty Diagnoses / Procedures Referred By Contac t Referred To Contact Orthopedics Diagnoses Olecranon bursitis of left elbow Procedures CONSULT TO ORTHOPAEDICS Kathie Julian MD [address] [place] [address] Referral ID Status Reason Start Date Expiration Date Visits Requested Visits Authorized [id number] Ref Not Required PCP Requested Referral 01/18/2022 01/18/2023 1 1 Specialty Diagnoses / Procedures Referred By [place] t Referred To Contact Orthopedics Diagnoses Closed nondisplaced fracture of proximal phalanx of right thumb with routine healing, subsequent encounter Procedures CONSULT TO ORTHOPAEDICS Kathie Julian MD [address] [place] [address] Referral ID Status Reason Start Date Expiration Date Visits Requested Visits Authorized [id number] Ref Not Required PCP Requested Referral 03/23/2022 03/23/2023 1 1 Additional Source Comments INFORMATION SOURCE (unrecogn ized section and content) DATE CREATED AUTHOR AUTHOR'S ORGANIZ ATION 12/20/2018 [facility] DATE CREATED AUTHOR AUTHOR'S ORGANIZ ATION 07/28/2021 [facility] DATE CREATED AUTHOR AUTHOR'S ORGANIZ ATION 07/12/2023 [facility] Source Comments (unrecognize d section and content) In the event this informatio n is protected by the Federal Confidentiality of Alcohol and Drug Abuse Patient Records regulations: The Federal rules restrict any use of the information to criminally investigate or prosecute any alcohol or drug abuse patient.[facility] the event this information is protected by the Federal Confidentiality of Alcohol and Drug Abuse Patient Records regulations: The Federal rules restrict any use of the information to criminally investigate or prosecute any alcohol or drug abuse patient.[facility] the event this information is protected by the Federal Confidentiality of Alcohol and Drug Abuse Patient Records regulations: The Federal rules restrict any use of the information to criminally investigate or prosecute any alcohol or drug abuse patient.[facility] the event this information is protected by the Federal Confidentiality of Alcohol and Drug Abuse Patient Records regulations: The Federal rules restrict any use of the information to criminally investigate or prosecute any alcohol or drug abuse patient.[facility] the event this information is protected by the Federal Confidentiality of Alcohol and Drug Abuse Patient Records regulations: The Federal rules restrict any use of the information to criminally investigate or prosecute any alcohol or drug abuse patient.[facility] the event this information is protected by the Federal Confidentiality of Alcohol and Drug Abuse Patient Records regulations: The Federal rules restrict any use of the information to criminally investigate or prosecute any alcohol or drug abuse patient.[facility] the event this information is protected by the Federal Confidentiality of Alcohol and Drug Abuse Patient Records regulations: The Federal rules restrict any use of the information to criminally investigate or prosecute any alcohol or drug abuse patient.[facility] the event this information is protected by the Federal Confidentiality of Alcohol and Drug Abuse Patient Records regulations: The Federal rules restrict any use of the information to criminally investigate or prosecute any alcohol or drug abuse patient.[facility] the event this information is protected by the Federal Confidentiality of Alcohol and Drug Abuse Patient Records regulations: The Federal rules restrict any use of the information to criminally investigate or prosecute any alcohol or drug abuse patient.[facility] the event this information is protected by the Federal Confidentiality of Alcohol and Drug Abuse Patient Records regulations: The Federal rules restrict any use of the information to criminally investigate or prosecute any alcohol or drug abuse patient.[facility]In the event this information is protected by the Federal Confidentiality of Alcohol and Drug Abuse Patient Records regulations: The Federal rules restrict any use of the information to criminally investigate or prosecute any alcohol or drug abuse patient.[facility] the event this information is protected by the Federal Confidentiality of Alcohol and Drug Abuse Patient Records regulations: The Federal rules restrict any use of the information to criminally investigate or prosecute any alcohol or drug abuse patient.[facility] HospitalIn the event this information is protected by the Federal Confidentiality of Alcohol and Drug Abuse Patient Records regulations: The Federal rules restrict any use of the information to criminally investigate or prosecute any alcohol or drug abuse patient.[facility] HospitalIn the event this information is protected by the Federal Confidentiality of Alcohol and Drug Abuse Patient Records regulations: The Federal rules restrict any use of the information to criminally investigate or prosecute any alcohol or drug abuse patient.[facility] HospitalIn the event this information is protected by the Federal Confidentiality of Alcohol and Drug Abuse Patient Records regulations: The Federal rules restrict any use of the information to criminally investigate or prosecute any alcohol or drug abuse patient.[facility] HospitalIn the event this information is protected by the Federal Confidentiality of Alcohol and Drug Abuse Patient Records regulations: The Federal rules restrict any use of the information to criminally investigate or prosecute any alcohol or drug abuse patient.[facility] the event this information is protected by the Federal Confidentiality of Alcohol and Drug Abuse Patient Records regulations: The Federal rules restrict any use of the information to criminally investigate or prosecute any alcohol or drug abuse patient.[facility] HospitalIn the event this information is protected by the Federal Confidentiality of Alcohol and Drug Abuse Patient Records regulations: The Federal rules restrict any use of the information to criminally investigate or prosecute any alcohol or drug abuse patient.[facility] HospitalIn the event this information is protected by the Federal Confidentiality of Alcohol and Drug Abuse Patient Records regulations: The Federal rules restrict any use of the information to criminally investigate or prosecute any alcohol or drug abuse patient.[facility] HospitalIn the event this information is protected by the Federal Confidentiality of Alcohol and Drug Abuse Patient Records regulations: The Federal rules restrict any use of the information to criminally investigate or prosecute any alcohol or drug abuse patient.[facility] HospitalIn the event this information is protected by the Federal Confidentiality of Alcohol and Drug Abuse Patient Records regulations: The Federal rules restrict any use of the information to criminally investigate or prosecute any alcohol or drug abuse patient.[facility] HospitalIn the event this information is protected by the Federal Confidentiality of Alcohol and Drug Abuse Patient Records regulations: The Federal rules restrict any use of the information to criminally investigate or prosecute any alcohol or drug abuse patient.[facility] HospitalIn the event this information is protected by the Federal Confidentiality of Alcohol and Drug Abuse Patient Records regulations: The Federal rules restrict any use of the information to criminally investigate or prosecute any alcohol or drug abuse patient.[facility] HospitalIn the event this information is protected by the Federal Confidentiality of Alcohol and Drug Abuse Patient Records regulations: The Federal rules restrict any use of the information to criminally investigate or prosecute any alcohol or drug abuse patient.[facility] HospitalIn the event this information is protected by the Federal Confidentiality of Alcohol and Drug Abuse Patient Records regulations: The Federal rules restrict any use of the information to criminally investigate or prosecute any alcohol or drug abuse patient.[facility] HospitalIn the event this information is protected by the Federal Confidentiality of Alcohol and Drug Abuse Patient Records regulations: The Federal rules restrict any use of the information to criminally investigate or prosecute any alcohol or drug abuse patient.[facility] HospitalIn the event this information is protected by the Federal Confidentiality of Alcohol and Drug Abuse Patient Records regulations: The Federal rules restrict any use of the information to criminally investigate or prosecute any alcohol or drug abuse patient.[facility] HospitalIn the event this information is protected by the Federal Confidentiality of Alcohol and Drug Abuse Patient Records regulations: The Federal rules restrict any use of the information to criminally investigate or prosecute any alcohol or drug abuse patient.[facility] HospitalIn the event this information is protected by the Federal Confidentiality of Alcohol and Drug Abuse Patient Records regulations: The Federal rules restrict any use of the information to criminally investigate or prosecute any alcohol or drug abuse patient.[facility] HospitalIn the event this information is protected by the Federal Confidentiality of Alcohol and Drug Abuse Patient Records regulations: The Federal rules restrict any use of the information to criminally investigate or prosecute any alcohol or drug abuse patient.[facility] HospitalIn the event this information is protected by the Federal Confidentiality of Alcohol and Drug Abuse Patient Records regulations: The Federal rules restrict any use of the information to criminally investigate or prosecute any alcohol or drug abuse patient.[facility] HospitalIn the event this information is protected by the Federal Confidentiality of Alcohol and Drug Abuse Patient Records regulations: The Federal rules restrict any use of the information to criminally investigate or prosecute any alcohol or drug abuse patient.[facility] HospitalIn the event this information is protected by the Federal Confidentiality of Alcohol and Drug Abuse Patient Records regulations: The Federal rules restrict any use of the information to criminally investigate or prosecute any alcohol or drug abuse patient.[facility] HospitalIn the event this information is protected by the Federal Confidentiality of Alcohol and Drug Abuse Patient Records regulations: The Federal rules restrict any use of the information to criminally investigate or prosecute any alcohol or drug abuse patient.[facility] HospitalIn the event this information is protected by the Federal Confidentiality of Alcohol and Drug Abuse Patient Records regulations: The Federal rules restrict any use of the information to criminally investigate or prosecute any alcohol or drug abuse patient.[facility] HospitalIn the event this information is protected by the Federal Confidentiality of Alcohol and Drug Abuse Patient Records regulations: The Federal rules restrict any use of the information to criminally investigate or prosecute any alcohol or drug abuse patient.[facility] HospitalIn the event this information is protected by the Federal Confidentiality of Alcohol and Drug Abuse Patient Records regulations: The Federal rules restrict any use of the information to criminally investigate or prosecute any alcohol or drug abuse patient.[facility] HospitalIn the event this information is protected by the Federal Confidentiality of Alcohol and Drug Abuse Patient Records regulations: The Federal rules restrict any use of the information to criminally investigate or prosecute any alcohol or drug abuse patient.[facility] HospitalIn the event this information is protected by the Federal Confidentiality of Alcohol and Drug Abuse Patient Records regulations: The Federal rules restrict any use of the information to criminally investigate or prosecute any alcohol or drug abuse patient.[facility] HospitalIn the event this information is protected by the Federal Confidentiality of Alcohol and Drug Abuse Patient Records regulations: The Federal rules restrict any use of the information to criminally investigate or prosecute any alcohol or drug abuse patient.[facility] HospitalIn the event this information is protected by the Federal Confidentiality of Alcohol and Drug Abuse Patient Records regulations: The Federal rules restrict any use of the information to criminally investigate or prosecute any alcohol or drug abuse patient.[facility] HospitalIn the event this information is protected by the Federal Confidentiality of Alcohol and Drug Abuse Patient Records regulations: The Federal rules restrict any use of the information to criminally investigate or prosecute any alcohol or drug abuse patient.[facility] HospitalIn the event this information is protected by the Federal Confidentiality of Alcohol and Drug Abuse Patient Records regulations: The Federal rules restrict any use of the information to criminally investigate or prosecute any alcohol or drug abuse patient.[facility] HospitalIn the event this information is protected by the Federal Confidentiality of Alcohol and Drug Abuse Patient Records regulations: The Federal rules restrict any use of the information to criminally investigate or prosecute any alcohol or drug abuse patient.[facility] HospitalIn the event this information is protected by the Federal Confidentiality of Alcohol and Drug Abuse Patient Records regulations: The Federal rules restrict any use of the information to criminally investigate or prosecute any alcohol or drug abuse patient.[facility] HospitalIn the event this information is protected by the Federal Confidentiality of Alcohol and Drug Abuse Patient Records regulations: The Federal rules restrict any use of the information to criminally investigate or prosecute any alcohol or drug abuse patient.[facility] HospitalIn the event this information is protected by the Federal Confidentiality of Alcohol and Drug Abuse Patient Records regulations: The Federal rules restrict any use of the information to criminally investigate or prosecute any alcohol or drug abuse patient.[facility] HospitalIn the event this information is protected by the Federal Confidentiality of Alcohol and Drug Abuse Patient Records regulations: The Federal rules restrict any use of the information to criminally investigate or prosecute any alcohol or drug abuse patient.[facility] HospitalIn the event this information is protected by the Federal Confidentiality of Alcohol and Drug Abuse Patient Records regulations: The Federal rules restrict any use of the information to criminally investigate or prosecute any alcohol or drug abuse patient.[facility] HospitalIn the event this information is protected by the Federal Confidentiality of Alcohol and Drug Abuse Patient Records regulations: The Federal rules restrict any use of the information to criminally investigate or prosecute any alcohol or drug abuse patient.[facility] HospitalIn the event this information is protected by the Federal Confidentiality of Alcohol and Drug Abuse Patient Records regulations: The Federal rules restrict any use of the information to criminally investigate or prosecute any alcohol or drug abuse patient.[facility] HospitalIn the event this information is protected by the Federal Confidentiality of Alcohol and Drug Abuse Patient Records regulations: The Federal rules restrict any use of the information to criminally investigate or prosecute any alcohol or drug abuse patient.[facility] HospitalIn the event this information is protected by the Federal Confidentiality of Alcohol and Drug Abuse Patient Records regulations: The Federal rules restrict any use of the information to criminally investigate or prosecute any alcohol or drug abuse patient.[facility] HospitalIn the event this information is protected by the Federal Confidentiality of Alcohol and Drug Abuse Patient Records regulations: The Federal rules restrict any use of the information to criminally investigate or prosecute any alcohol or drug abuse patient.[facility] HospitalIn the event this information is protected by the Federal Confidentiality of Alcohol and Drug Abuse Patient Records regulations: The Federal rules restrict any use of the information to criminally investigate or prosecute any alcohol or drug abuse patient.[facility] HospitalIn the event this information is protected by the Federal Confidentiality of Alcohol and Drug Abuse Patient Records regulations: The Federal rules restrict any use of the information to criminally investigate or prosecute any alcohol or drug abuse patient.[facility] Reason for Visit (unrecogniz ed section and content) Reason Onset Date Comments Refill Request 10/20/2021 Reason Comments PT Eval Patient Education Specialty Diagnoses / Procedures Referred By Orlando t Referred To Contact [facility] Diagnoses Acute left-sided low back pain with left-sided sciatica Procedures CONSULT TO PHYSICAL THERAPY PHYSICAL THERAPY EVALUATION HIGH COMPLEX 45 MINS Kathie Julian MD [address] [place] [address] [facility] [address] [place] [address] Referral ID Status Reason Start Date Expiration Date Visits Requested Visits Authorized [id number] Authorized PCP Requested Referral Auto-Generate d Referral [...] esophageal spasm s Reason Comments ER F/U [facility] ER 02/18/23 dx: ab d pain Reason Onset Date Comments Refill Request 03/07/2023 Reason Comments Radiology US Specialty Diagnoses / Procedures Referred By Orlando t Referred To Contact [facility] Diagnoses Renal insufficiency Procedures US KIDNEY/BLADDER US RETROPERITONEAL REAL TIME W/IMAGE COMPLETE Kathie Julian MD [address] [place] [address] [place] [address] Referral ID Status Reason Start Date Expiration Date V isits Requested Visits Authorized [id number] Closed Auto-Generate d Referral 01/28/2023 02/27/2024 1 1 Reason Onset Date Comments Refill Request 05/22/2023 Reason Comments Medication Request Reason Onset Date Comments Refill Request 06/05/2023 Reason Comments 6 Month Exam Reason Comments Patient Update Patient Question Medication Problem [facility] Teams (unrecognized sec tion and content) Clinical Product Manager Relationship Specialty Start Date End Date Kathie Julian MD [address] [place] [id number] PCP - General Family Practice 12/07/15 Clinical Product Manager Relationship Specialty Start Date End Date Kathie Julian MD [address] [place] [address] PCP - General Family Practice 12/07/15 Clinical Product Manager Relationship Specialty Start Date End Date Kathie Julian MD [address] [place] [id number] PCP - General Family Practice 12/07/15 Clinical Product Manager Relationship Specialty Start Date End Date Kathie Julian MD [address] [place] [address] PCP - General Family Practice 12/07/15 Clinical Product Manager Relationship Specialty Start Date End Date Kathie Julian MD [address] [place] [phone] PCP - General Family Practice 12/07/15 Clinical Product Manager Relationship Specialty Start Date End Date Kathie Julian MD [address] [place] [phone] PCP - General Family Practice 12/07/15 Clinical Product Manager Relationship Specialty Start Date End Date Kathie Julian MD [address] [facility] [place] [address] PCP - General Family Practice 12/07/15 Clinical Product Manager Relationship Specialty Start Date End Date Kathie Julian MD [address] [facility] [place] [address] PCP - General Family Practice 12/07/15 Clinical Product Manager Relationship Specialty Start Date End Date Kathie Julian MD [address] [facility] [place] [address] PCP - General Family Practice 12/07/15 Clinical Product Manager Relationship Specialty Start Date End Date Kathie Julian MD [address] [facility] [place] [address] PCP - General Family Practice 12/07/15 Clinical Product Manager Relationship Specialty Start Date End Date Kathie Julian MD [address] [facility] [place] [address] PCP - General Family Practice 12/07/15 Clinical Product Manager Relationship Specialty Start Date End Date Kathie Julian MD [address] [facility] [place] [address] PCP - General Family Practice 12/07/15 Clinical Product Manager Relationship Specialty Start Date End Date Kathie Julian MD [address] [facility] [place] [address] PCP - General Family Practice 12/07/15 Clinical Product Manager Relationship Specialty Start Date End Date Kathie Julian MD [address] [facility] [place] [address] PCP - General Family Practice 12/07/15 Clinical Product Manager Relationship Specialty Start Date End Date Kathie Julian MD [address] [facility] [place] [address] PCP - General Family Medicine 12/07/15 Clinical Product Manager Relationship Specialty Start Date End Date Kathie Julian MD [address] [facility] [place] [address] PCP - General Family Medicine 12/07/15 Clinical Product Manager Relationship Specialty Start Date End Date Kathie Julian MD [address] [facility] [place] [address] PCP - General Family Medicine 12/07/15 Clinical Product Manager Relationship Specialty Start Date End Date Kathie Julian MD [address] [facility] [place] [address] PCP - General Family Medicine 12/07/15 Clinical Product Manager Relationship Specialty Start Date End Date Kathie Julian MD [address] [facility] [place] [address] PCP - General Family Medicine 12/07/15 Clinical Product Manager Relationship Specialty Start Date End Date Kathie Julian MD [address] [facility] [place] [address] PCP - General Family Medicine 12/07/15 Clinical Product Manager Relationship Specialty Start Date End Date Kathie Julian MD [address] [facility] [place] [address] PCP - General Family Medicine 12/07/15 Clinical Product Manager Relationship Specialty Start Date End Date Kathie Julian MD [address] [facility] [place] [address] PCP - General Family Medicine 12/07/15 Clinical Product Manager Relationship Specialty Start Date End Date Kathie Julian MD [address] [facility] [place] [address] PCP - General Family Medicine 12/07/15 Clinical Product Manager Relationship Specialty Start Date End Date Kathie Julian MD [address] [facility] [place] [address] PCP - General Family Medicine 12/07/15 Clinical Product Manager Relationship Specialty Start Date End Date Kathie Julian MD [address] [facility] [place] [address] PCP - General Family Medicine 12/07/15 Clinical Product Manager Relationship Specialty Start Date End Date Kathie Julian MD [address] [facility] [place] [address] PCP - General Family Medicine 12/07/15 Clinical Product Manager Relationship Specialty Start Date End Date Kathie Julian MD [address] [facility] [place] [address] PCP - General Family Medicine 12/07/15 Clinical Product Manager Relationship Specialty Start Date End Date Kathie Julian MD [address] [facility] [place] [address] PCP - General Family Medicine 12/07/15 Clinical Product Manager Relationship Specialty Start Date End Date Kathie Julian MD [address] [facility] [place] [address] PCP - General Family Medicine 12/07/15 Clinical Product Manager Relationship Specialty Start Date End Date Kathie Julian MD [address] [facility] [place] [address] PCP - General Family Medicine 12/07/15 Clinical Product Manager Relationship Specialty Start Date End Date Kathie Julian MD [address] [facility] [place] [address] PCP - General Family Medicine 12/07/15 Clinical Product Manager Relationship Specialty Start Date End Date Kathie Julian MD [address] [facility] [place] [address] PCP - General Family Medicine 12/07/15 Clinical Product Manager Relationship Specialty Start Date End Date Kathie Julian MD [address] [place] [address] PCP - General Family Medicine 12/07/15 FOR [...] BE BASED ON THE PRIMARY CLINICAL RECORDS. [employer] provides no warranty or guarantee of the accuracy or completeness of information in this document.
== END | disposition home or self-care (01) ==
LOC: CVS 09:52
PROVIDERS: PCP Family Medicine; Referring Provider Internal Medicine Cardiovascular Disease; Visit Provider Internal Medicine Cardiovascular Disease
DX: I35.0 Nonrheumatic aortic (valve) stenosis (principal); I49.9 Cardiac arrhythmia, unspecified; E78.5 Hyperlipidemia, unspecified; I10 Essential (primary) hypertension
CPT/HCPCS: 93312; 93320; 93325

== ENCOUNTER 2024-12-17 16:05 | Emergency (ER) | payer MEDICARE, OTHER, SELFPAY ==
[2024-12-17 16:10] VITALS: BP 128/74; PULSE 69; RESP 16; TEMP 35.9; O2SAT 98
--- NOTE | 2024-12-17 16:10 | RAD_ITS ---
PROCEDURE: CERV SPINE 2 OR 3 VIEWS 12/17/2024 REASON FOR EXAM: NECK PAIN FOR 2 WEEKS. TECHNIQUE: 3 views of the cervical spine. COMPARISON: CT cervical dated [id number]. FINDINGS: Vertebra: Vertebral bodies normal in height. C1-C2: Atlantoaxial articulation is maintained. Alignment: Mild grade 1 anterolisthesis of C3 on C4 of approximately 3 mm. Discs: Narrowing of the C2-C3 interspace. Facets: Multilevel facet arthropathy at C2 through C5. Soft tissues: Prevertebral soft tissues are normal. RAD/Cerv Spine 2 or 3 Views IMPRESSION: Mild anterolisthesis of C3 on C4. This may be degenerative. 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 Multilevel facet arthropathy. Reading Location: [place] [address]
--- NOTE | 2024-12-17 16:11 | EDS_ITS ---
HPI History of Present Illness Chief Complaint: General Illness Narrative Narrative: Presents her daughter for evaluation. Nontraumatic neck pain for 3 days. History of mild dementia. Daughter brought patient to urgent care this morning did not feel anything urgent. Daughter picked up soft collar for the patient as it seemed to help her. She reports pain down her right arm towards her thumb. No weakness. She has an appointment with her pain doctor at 4 PM, Dr. Mark. She is on gabapentin and 2.5 mg oxycodone every 8 hours. She is a diabetic states sugars are stable. Daughter brought her from nursing facility for evaluation she has been there for nearly 2 years. Pain worse with movement. Patient has had lumbar surgery x 2 has had lumbar injections by her pain doctor. [facility] Medical History Nonrheumatic aortic (valve) stenosis Irregular heart beat Constipation Sacral fracture Essential hypertension Forgetfulness Pancreatitis Wears glasses Depression Cancer Open wound Diabetes Ambulates with cane Injury of back Back pain Migraine headache Dietary restriction History of hiatal hernia History of pain when walking Normal stress echocardiogram History of stress test Hx of cataract Nausea Fecal incontinence GI bleeding High cholesterol Carpal tunnel syndrome Arthritis Liver lesion, right lobe Kidney stone on left side Peripheral neuropathy Multiple lung nodules Type II diabetes mellitus Hypertension Home Medications ?Medication ?Instructions ?Recorded ?Last Taken ?Type atorvastatin 40 mg tablet 40 mg PO QHS cholestrol 09/25 10 Days Ago History ~04/22/21 tolterodine 2 mg capsule,extended 2 mg PO QHS overacti ve bladder 02/14/14 05/01/21 History release 24 hr (Detrol LA) valsartan 320 mg tablet 320 mg PO DAILY Cholesterol 04/10/21 07/05/21 06:30 History amlodipine 10 mg tablet 10 mg PO DAILY bp 05/02/21 0 03/26/22 05:00 History bupropion HCl 150 mg 24 hr tablet, 150 mg PO DAILY moo d 05/02/21 03/26/22 05:00 History extended release fluoxetine 40 mg capsule 40 mg PO DAILY depression 03/26/22 05:00 History hydrochlorothiazide 12.5 mg capsule 12.5 mg PO DAILY b p/fluid 05/02/21 10 Days Ago History ~04/22/21 metformin 1,000 mg tablet 1,000 mg PO BID dm 05/02/21 05/01/21 History Held on 08/06/23. Instructions: Hold for 3 days then start as metformin 500 mg (half tablet)twice daily calcium 600 mg (as 1 tab PO DAILY Supplement Unknown History carbonate)-vitamin D3 5 mcg (200 unit) tablet clobetasol 0.05 % topical ointment 1 applic topical BI D PRN rash 01/25/23 Unknown History hyoscyamine sulfate 0.125 mg 0.125 mg sublingual Q4H P RN 01/25/23 Unknown History sublingual tablet dyspepsia linagliptin 5 mg tablet 5 mg PO DAILY 01/25/23 Unkno wn History meclizine 12.5 mg tablet 12.5 mg PO Q6H PRN dizziness 01/25/23 Unknown History nystatin 100,000 unit/gram topical 1 applic topical BI D PRN rash 02/13/23 Unknown History powder ondansetron 4 mg disintegrating 4 mg PO Q6H PRN nausea and vomiting 02/13/23 Unknown History tablet aspirin 81 mg chewable tablet 162 mg (2 x 81 mg) PO DA ILYCM #30 06/21/23 Unknown Rx tabs acetaminophen 325 mg capsule 650 mg PO Q4H PRN fever o r pain 08/04/23 Unknown Hi story (Tylenol) magnesium hydroxide 400 mg/5 mL 30 ml PO DAILY PRN con stipation 08/04/23 Unknown History oral suspension (Milk of Magnesia) glimepiride 1 mg tablet 1 mg PO DAILY 08/05/23 Unkno wn History Lactobacillus acidophilus 20 20,000 mmu cells PO QDAY #90 caps 07/30/24 Unknown Rx billion cell capsule (Florajen Acidophilus) polyethylene glycol 3350 17 8.5 g PO ONCE #850 grams 0 07/30/24 Unknown Rx gram/dose oral powder (Miralax) Allergy/AdvReac Type Severity Reaction Status Date / Time acetaminophen (From Vicodin) Allergy Severe Anaphylaxis Verified 12/17/24 16:12 duloxetine Allergy Severe Hallucinati Verified 12/17/24 16:12 ons hydrocodone (From Vicodin) Allergy Severe Anaphylaxis Verified 12/17/24 16:12 levofloxacin (From Levaquin) Allergy Unknown Hallucinations, Verified 12/17/24 16:12 joint pain oxaprozin Allergy Unknown Unknown Verified 12/17/24 16:12 prednisone Allergy Unknown Unknown Verified 12/17/24 16:12 codeine Allergy Anaphylaxis Verified 12/17/24 16:12 crab Allergy Swollen Verified 12/17/24 16:12 lymph glands hydrocodone bitartrate (From AdvReac Vomiting Verified 12/17/24 16:12 Vicodin) zolpidem tartrate (From AdvReac Other Verified 12/17/24 16:12 Ambien) Family History Grandmother Parkinson disease Father Hypertension CVA (cerebral vascular accident) Diabetes Myocardial infarction Brother Sarcoid Surgical History History of cataract extraction S/P laminectomy Hx of cystoscopy History of back surgery History of 2 sections Hx of detached retina repair Hx of total knee replacement History of cholecystectomy H/O: hysterectomy Social History household members: none Smoking Status: Former smoker quit date: 01/30/71 how long ago did patient quit smokin alcohol intake: never substance use type: does not use caffeine: No ROS ROS ED Constitutional Constitutional ED: Denies fever(s) Cardiovascular Cardiovascular: Denies chest pain Respiratory/Chest Respiratory/Chest: Denies cough Gastrointestinal Gastrointestinal: Denies diarrhea or vomiting Musculoskeletal Musculoskeletal: Reports neck pain Integumentary Denies rash or wounds Neurologic Neurologic: Denies weakness EXAM Physical Exam Const Vital Signs: 12/17/24 16:10 12/17/24 16:13 12/17/24 16:15 Temperature 96.6 F L 96.6 F L Temperature Source Temporal Pulse Rate 69 69 Respiratory Rate 16 16 Respiratory Effort Normal Non-Labored Blood Pressure 128/74 H 128/74 H Blood Pressure Mean 92 92 Pulse Ox 98 98 Oxygen Delivery Method Room Air 12/17/24 16:21 Temperature 96.6 F L Temperature Source Pulse Rate 69 Respiratory Rate 16 Respiratory Effort Blood Pressure 128/74 H Blood Pressure Mean 92 Pulse Ox 98 Oxygen Delivery Method Positive well nourished and well developed General Appearance ED: well developed HEENT normocephalic and atraumatic Eyes General Eye ED: Yes normal appearance of both eyes Neck Neck Narrative: Soft collar, removed paracervical tenderness. Spurling test negative. Resp normal respiratory effort and normal air movement Cardio regular rate and regular rhythm GI soft to palpation Extremity normal to inspection and full ROM Neuro oriented x3 Neuro Narrative: 5 symmetric strength bilateral shoulder abduction, elbow flexion extension and college advisor strength. Pulses intact distally. Skin no rashes or lesions noted and no wounds MDM MDM MDM Narrative Medical decision making narrative: Interventions / MDM: Differential diagnosis: Acute neck pain, right cervical radiculopathy C6. Diagnosis considered but do not suspect: N/A My EKG interpretation: N/A Imaging independently reviewed and interpreted by myself: Cervical spine x-ray 3 views: Degenerative changes seen cervical spine. No fractures. External documents reviewed: N/A Test considered but not ordered:N/A ED course: Patient nontraumatic neck pain having radicular symptoms right C6. On gabapentin she is on oxycodone. Daughter reports may need a refill from her pain management doctor. Discussed best evaluation would be through her pain doctor. This is new neck pain. I will obtain cervical x-ray however we will plan discharge so she can keep her appointment to be evaluated specially needing refills of her opiates. Daughter understands and agrees with plan. I spoke with office to make them aware of patient being here and will be discharged to be seen in the office for treatment plans. Re-evaluation: stable Disposition discussed with patient/family/significant other: Patient and daughter Case discussed with consulting clinician: Pain management office This note was generated with [employer] dictation software. It may contain incorrect words, spelling, and punctuation that were not noted in checking the note before signing. Radiography Diagnostic Testing: Clinical Impression(s) from Imaging Studies Cervical Spine X-Ray 12/17/24 16:10 IMPRESSION: Mild anterolisthesis of C3 on C4. This may be degenerative. 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 Multilevel facet arthropathy. Reading Location: [place] [id number] Discharge Plan Triage Chief Complaint: General Illness ED Provider: Jaden Vargas Dx/Rx/DC Orders Clinical Impression: Acute neck pain, Cervical radiculopathy at C6 Instructions: Cervical Radiculopathy Prescriptions: No Action valsartan 320 mg tablet 320 mg PO DAILY Patient Comments: TAKE 1 TABLET BY MOUTH EVERY DAY meclizine 12.5 mg tablet 12.5 mg PO Q6H PRN (Reason: dizziness) clobetasol 0.05 % ointment 1 applic topical BID PRN (Reason: rash) hyoscyamine sulfate 0.125 mg tablet, sublingual 0.125 mg sublingual Q4H PRN (Reason: dyspepsia) linagliptin 5 mg tablet 5 mg PO DAILY nystatin 100,000 unit/gram powder 1 applic topical BID PRN (Reason: rash) ondansetron 4 mg tablet,disintegrating 4 mg PO Q6H PRN (Reason: nausea and vomiting) Florajen Acidophilus 20 billion cell capsule 20,000 mmu cells PO QDAY Qty: 90 1RF polyethylene glycol 3350 [Miralax] 17 gram/dose powder 8.5 g PO ONCE Qty: 850 1RF tolterodine [Detrol LA] 2 MG capsule,extended release 24hr 2 mg PO QHS Patient Comments: URINARY MEDICATION atorvastatin 40 MG tablet 40 mg PO QHS Patient Comments: CHOLESTEROL fluoxetine 40 mg capsule 40 mg PO DAILY amlodipine 10 mg tablet 10 mg PO DAILY metformin 1,000 mg tablet 1,000 mg PO BID hydrochlorothiazide 12.5 mg capsule 12.5 mg PO DAILY bupropion HCl 150 mg tablet extended release 24 hr 150 mg PO DAILY calcium carbonate-vitamin D3 600 mg-5 mcg (200 unit) Tablet 1 tab PO DAILY aspirin 81 mg Tablet,Chewable 162 mg PO DAILYCM Qty: 30 0RF magnesium hydroxide [Milk of Magnesia] 400 mg/5 mL suspension 30 ml PO DAILY PRN (Reason: constipation) acetaminophen [Tylenol] 325 mg capsule 650 mg PO Q4H PRN (Reason: fever or pain) glimepiride 1 mg tablet 1 mg PO DAILY Patient Comments: TAKE 1 TABLET BY MOUTH EVERY DAY WITH BREAKFAST Primary Care Provider: Dhiraj Julian Referrals: Jazmin Mark MD [Med Staff - Active Staff] - Dhiraj Julian MD [Primary Care Provider] - Activity Restrictions/Additional Instructions: neck pain, right cervical radiculopathy. xray done in ED. Go to your appointment with Dr. Mark from here for evaluation and treatment. Print Language: Burkinan Disposition Disposition: Home, Self Care Discharge Date/Time: 12/17/24 16:21
[2024-12-17 16:15] VITALS: BP 128/74; PULSE 69; RESP 16; TEMP 35.9; O2SAT 98
[2024-12-17 16:21] VITALS: BP 128/74; PULSE 69; RESP 16; TEMP 35.9; O2SAT 98
== END 2024-12-17 16:21 | disposition home or self-care (01) ==
PROVIDERS: Emergency Provider Emergency Medicine; PCP Family Medicine; Referring Provider Emergency Medicine; Visit Provider Emergency Medicine
DX: M47.22 Other spondylosis with radiculopathy, cervical region (principal); E11.42 Type 2 diabetes mellitus with diabetic polyneuropathy; Z87.891 Personal history of nicotine dependence
CPT/HCPCS: 72040; 99282

== ENCOUNTER → 2025-01-14 | Outpatient (CLI) | payer MEDICARE, OTHER, SELFPAY ==
[2025-01-14 17:10] LABS: Barbiturate Urine NEGATIVE (< 200 ng/mL); Benzodiazepine Urine NEGATIVE (< 200 ng/mL); PCP Urine NEGATIVE (< 25 ng/mL); THC Urine NEGATIVE (< 50 ng/mL)
== END | disposition home or self-care (01) ==
LOC: LAB 15:13
PROVIDERS: PCP Family Medicine; Referring Provider Anesthesiology Pain Medicine; Visit Provider Anesthesiology Pain Medicine
DX: F11.20 Opioid dependence, uncomplicated (principal)
CPT/HCPCS: 80307

== ENCOUNTER 2025-02-08 12:09 | Emergency (ER) | payer MEDICARE, OTHER, SELFPAY ==
[2025-02-08 12:09] VITALS: BP 86/75; PULSE 52; RESP 18; TEMP 36.6; O2SAT 99
[2025-02-08 13:07] VITALS: BMI 27.3
--- NOTE | 2025-02-08 13:09 | EDS_ITS ---
HPI History of Present Illness Chief Complaint: Fall Occured/Mechanism Mechanism/Context: Yes fall PFSH PFSH Medical History Nonrheumatic aortic (valve) stenosis Irregular heart beat Constipation Sacral fracture Essential hypertension Forgetfulness Pancreatitis Wears glasses Depression Cancer Open wound Diabetes Ambulates with cane Injury of back Back pain Migraine headache Dietary restriction History of hiatal hernia History of pain when walking Normal stress echocardiogram History of stress test Hx of cataract Nausea Fecal incontinence GI bleeding High cholesterol Carpal tunnel syndrome Arthritis Liver lesion, right lobe Kidney stone on left side Peripheral neuropathy Multiple lung nodules Type II diabetes mellitus Hypertension Home Medications ?Medication ?Instructions ?Recorded ?Last Taken ?Type atorvastatin 40 mg tablet 40 mg PO QHS cholestrol 09/25 10 Days Ago History ~04/22/21 tolterodine 2 mg capsule,extended 2 mg PO QHS overacti ve bladder 02/14/14 05/01/21 History release 24 hr (Detrol LA) valsartan 320 mg tablet 320 mg PO DAILY Cholesterol 04/10/21 07/05/21 06:30 History amlodipine 10 mg tablet 10 mg PO DAILY bp 05/02/21 0 03/26/22 05:00 History bupropion HCl 150 mg 24 hr tablet, 150 mg PO DAILY moo d 05/02/21 03/26/22 05:00 History extended release fluoxetine 40 mg capsule 40 mg PO DAILY depression 03/26/22 05:00 History hydrochlorothiazide 12.5 mg capsule 12.5 mg PO DAILY b p/fluid 05/02/21 10 Days Ago History ~04/22/21 metformin 1,000 mg tablet 1,000 mg PO BID dm 05/02/21 05/01/21 History Held on 08/06/23. Instructions: Hold for 3 days then start as metformin 500 mg (half tablet)twice daily calcium 600 mg (as 1 tab PO DAILY Supplement Unknown History carbonate)-vitamin D3 5 mcg (200 unit) tablet clobetasol 0.05 % topical ointment 1 applic topical BI D PRN rash 01/25/23 Un known History hyoscyamine sulfate 0.125 mg 0.125 mg sublingual Q4H P RN 01/25/23 Unknown History sublingual tablet dyspepsia linagliptin 5 mg tablet 5 mg PO DAILY 01/25/23 Unkno wn History meclizine 12.5 mg tablet 12.5 mg PO Q6H PRN dizziness 01/25/23 Unknown History nystatin 100,000 unit/gram topical 1 applic topical BI D PRN rash 02/13/23 Unknown History powder ondansetron 4 mg disintegrating 4 mg PO Q6H PRN nausea and vomiting 02/13/23 Unknown History tablet aspirin 81 mg chewable tablet 162 mg (2 x 81 mg) PO DA ILYCM #30 06/21/23 Unknown Rx tabs acetaminophen 325 mg capsule 650 mg PO Q4H PRN fever o r pain 08/04/23 Unknown History (Tylenol) magnesium hydroxide 400 mg/5 mL 30 ml PO DAILY PRN con stipation 08/04/23 Unknown History oral suspension (Milk of Magnesia) glimepiride 1 mg tablet 1 mg PO DAILY 08/05/23 Unkno wn History Lactobacillus acidophilus 20 20,000 mmu cells PO QDAY #90 caps 07/30/24 Unknown Rx billion cell capsule (Florajen Acidophilus) polyethylene glycol 3350 17 8.5 g PO ONCE #850 grams 0 07/30/24 Unknown Rx gram/dose oral powder (Miralax) gabapentin 100 mg capsule PO 02/08/25 Unknown History oxycodone 5 mg tablet PO 02/08/25 Unknown History Allergy/AdvReac Type Severity Reaction Status Date / Time acetaminophen (From Vicodin) Allergy Severe Anaphylaxis Verified 02/08/25 12:11 duloxetine Allergy Severe Hallucinati Verified 02/08/25 12:11 ons hydrocodone (From Vicodin) Allergy Severe Anaphylaxis Verified 02/08/25 12:11 levofloxacin (From Levaquin) Allergy Unknown Hallucinations, Verified 02/08/25 12:11 joint pain oxaprozin Allergy Unknown Unknown Verified 12/17/24 16:12 prednisone Allergy Unknown Unknown Verified 12/17/24 16:12 codeine Allergy Anaphylaxis Verified 12/17/24 16:12 crab Allergy Swollen Verified 12/17/24 16:12 lymph glands hydrocodone bitartrate (From AdvReac Vomiting Verified 12/17/24 16:12 Vicodin) zolpidem tartrate (From AdvReac Other Verified 12/17/24 16:12 Ambien) Family History Grandmother Parkinson disease Father Hypertension CVA (cerebral vascular accident) Diabetes Myocardial infarction Brother Sarcoid Surgical History History of cataract extraction S/P laminectomy Hx of cystoscopy History of back surgery History of 2 sections Hx of detached retina repair Hx of total knee replacement History of cholecystectomy H/O: hysterectomy Social History household members: none Smoking Status: Former smoker quit date: 01/30/71 how long ago did patient quit smokin alcohol intake: never substance use type: does not use caffeine: No EXAM Physical Exam Const Vital Signs: 02/08/25 12:09 Temperature 98 F Temperature Source Oral Pulse Rate 52 L Respiratory Rate 18 Blood Pressure 86/75 L Blood Pressure Mean 78 Pulse Ox 99 Oxygen Delivery Method Room Air Discharge Plan Triage Chief Complaint: Fall ED Provider: Perico Bar Dx/Rx/DC Orders Prescriptions: No Action valsartan 320 mg tablet 320 mg PO DAILY Patient Comments: TAKE 1 TABLET BY MOUTH EVERY DAY meclizine 12.5 mg tablet 12.5 mg PO Q6H PRN (Reason: dizziness) clobetasol 0.05 % ointment 1 applic topical BID PRN (Reason: rash) hyoscyamine sulfate 0.125 mg tablet, sublingual 0.125 mg sublingual Q4H PRN (Reason: dyspepsia) linagliptin 5 mg tablet 5 mg PO DAILY nystatin 100,000 unit/gram powder 1 applic topical BID PRN (Reason: rash) ondansetron 4 mg tablet,disintegrating 4 mg PO Q6H PRN (Reason: nausea and vomiting) Florajen Acidophilus 20 billion cell capsule 20,000 mmu cells PO QDAY Qty: 90 1RF polyethylene glycol 3350 [Miralax] 17 gram/dose powder 8.5 g PO ONCE Qty: 850 1RF tolterodine [Detrol LA] 2 MG capsule,extended release 24hr 2 mg PO QHS Patient Comments: URINARY MEDICATION atorvastatin 40 MG tablet 40 mg PO QHS Patient Comments: CHOLESTEROL fluoxetine 40 mg capsule 40 mg PO DAILY amlodipine 10 mg tablet 10 mg PO DAILY metformin 1,000 mg tablet 1,000 mg PO BID hydrochlorothiazide 12.5 mg capsule 12.5 mg PO DAILY bupropion HCl 150 mg tablet extended release 24 hr 150 mg PO DAILY calcium carbonate-vitamin D3 600 mg-5 mcg (200 unit) Tablet 1 tab PO DAILY aspirin 81 mg Tablet,Chewable 162 mg PO DAILYCM Qty: 30 0RF magnesium hydroxide [Milk of Magnesia] 400 mg/5 mL suspension 30 ml PO DAILY PRN (Reason: constipation) acetaminophen [Tylenol] 325 mg capsule 650 mg PO Q4H PRN (Reason: fever or pain) glimepiride 1 mg tablet 1 mg PO DAILY Patient Comments: TAKE 1 TABLET BY MOUTH EVERY DAY WITH BREAKFAST gabapentin 100 mg capsule PO oxycodone 5 mg tablet PO Primary Care Provider: Dhiraj Julian Referrals: Dhiraj Julian MD [Primary Care Provider] - Print Language: Telugu
--- NOTE | 2025-02-08 13:09 | EX.ED.UPPERE ---
HPI History of Present Illness HPI Narrative: Patient presents with right shoulder pain that began after a fall. Patient states it was a mechanical fall. Patient [place] today [place] the [place]. Patient denies hitting her head. Patient denies any loss of consciousness. Patient states her pain is sharp. Patient states it is worse with any movement of her shoulder. Patient denies any paresthesias or weakness. Patient denies any other injuries. Chief Complaint: Fall Informant: patient Occured/Mechanism Mechanism/Context: Yes fall Onset/Context/Timing Onset: Today Context: Sudden Onset Timing: Continuous Quality of Pain: Sharp Location: Right shoulder Worsened by: Movement Relieved by: Rest Associated Symptoms Associated Symptoms: Negative for Parasthesia, Weakness or [facility] History Nonrheumatic aortic (valve) stenosis Irregular heart beat Constipation Sacral fracture Essential hypertension Forgetfulness Pancreatitis Wears glasses Depression Cancer Open wound Diabetes Ambulates with cane Injury of back Back pain Migraine headache Dietary restriction History of hiatal hernia History of pain when walking Normal stress echocardiogram History of stress test Hx of cataract Nausea Fecal incontinence GI bleeding High cholesterol Carpal tunnel syndrome Arthritis Liver lesion, right lobe Kidney stone on left side Peripheral neuropathy Multiple lung nodules Type II diabetes mellitus Hypertension Home Medications ?Medication ?Instructions ?Recorded ?Last Taken ?Type atorvastatin 40 mg tablet 40 mg PO QHS cholestrol 02/14/14 10 Days Ago History ~04/22/21 tolterodine 2 mg capsule,extended 2 mg PO QHS overactive bladder 02/14/14 05/01/21 History release 24 hr (Detrol LA) valsartan 320 mg tablet 320 mg PO DAILY Cholesterol 04/10/21 07/05/21 06:30 History amlodipine 10 mg tablet 10 mg PO DAILY bp 05/02/21 03/26/22 05:00 History bupropion HCl 150 mg 24 hr tablet, 150 mg PO DAILY mood 05/02/21 03/26/22 05:00 History extended release fluoxetine 40 mg capsule 40 mg PO DAILY depression 05/02/21 03/26/22 05:00 History hydrochlorothiazide 12.5 mg capsule 12.5 mg PO DAILY bp/fluid 05/02/21 10 Days Ago History ~04/22/21 clobetasol 0.05 % topical ointment 1 applic topical BID PRN rash 01/25/23 Unknown History hyoscyamine sulfate 0.125 mg 0.125 mg sublingual Q4H PRN 01/25/23 Unknown History sublingual tablet dyspepsia linagliptin 5 mg tablet 5 mg PO DAILY 01/25/23 Unknown History meclizine 12.5 mg tablet 12.5 mg PO Q6H PRN dizziness 01/25/23 Unknown History ondansetron 4 mg disintegrating 4 mg PO Q6H PRN nausea and vomiting 02/13/23 Unknown History tablet magnesium hydroxide 400 mg/5 mL 30 ml PO DAILY PRN constipation 08/04/23 Unknown History oral suspension (Milk of Magnesia) glimepiride 1 mg tablet 1 mg PO DAILY 08/05/23 Unknown History Lactobacillus acidophilus 20 20,000 mmu cells PO QDAY #90 caps 07/30/24 Unknown Rx billion cell capsule (Florajen Acidophilus) cyanocobalamin (vitamin B-12) 1,000 mcg PO DAILY 02/08/25 Unknown History 1,000 mcg tablet gabapentin 100 mg capsule PO 02/08/25 Unknown History inulin 1.7 gram chewable tablet 1.7 g PO DAILY 02/08/25 Unknown History (Fiber Gummies) lactase 3,000 unit tablet (Lactaid) 3,000 unit PO BID FOR LACTOSE 02/08/25 Unknown History INTOLERANCE loperamide 2 mg capsule 2 mg PO PRN LOOSE STOOL 02/08/25 Unknown History (Anti-Diarrheal (loperamide)) metformin 500 mg tablet 500 mg PO BID 02/08/25 Unknown History multivitamin with minerals 1 tab PO DAILY 02/08/25 Unknown History (Multiple Vitamin-Minerals tablet) oxycodone 5 mg tablet PO 02/08/25 Unknown History polyethylene glycol 3350 17 17 g PO QODAY CONSTIPATION 02/08/25 Unknown History gram/dose oral powder (Miralax) Allergy/AdvReac Type Severity Reaction Status Date / Time acetaminophen (From Vicodin) Allergy Severe Anaphylaxis Verified 02/08/25 12:11 duloxetine Allergy Severe Hallucinati Verified 02/08/25 12:11 ons hydrocodone (From Vicodin) Allergy Severe Anaphylaxis Verified 02/08/25 12:11 levofloxacin (From Levaquin) Allergy Unknown Hallucinations, Verified 02/08/25 12:11 joint pain oxaprozin Allergy Unknown Unknown Verified 12/17/24 16:12 prednisone Allergy Unknown Unknown Verified 12/17/24 16:12 codeine Allergy Anaphylaxis Verified 12/17/24 16:12 crab Allergy Swollen Verified 12/17/24 16:12 lymph glands hydrocodone bitartrate (From AdvReac Vomiting Verified 12/17/24 16:12 Vicodin) zolpidem tartrate (From AdvReac Other Verified 12/17/24 16:12 Ambien) Family History Grandmother Parkinson disease Father Hypertension CVA (cerebral vascular accident) Diabetes Myocardial infarction Brother Sarcoid Surgical History History of cataract extraction S/P laminectomy Hx of cystoscopy History of back surgery History of 2 sections Hx of detached retina repair Hx of total knee replacement History of cholecystectomy H/O: hysterectomy Social History household members: none Smoking Status: Former smoker quit date: 01/30/71 how long ago did patient quit smokin alcohol intake: never substance use type: does not use caffeine: No ROS ROS ED Constitutional Constitutional ED: Denies chills or fever(s) Eyes Eyes: Denies blurry vision or change in vision ENT ENT ED: Denies rhinorrhea or sore throat Cardiovascular Cardiovascular: Denies chest pain or palpitations Respiratory/Chest Respiratory/Chest: Denies cough or dyspnea Gastrointestinal Gastrointestinal: Denies nausea or vomiting Genitourinary Genitourinary ED: Denies dysuria or hematuria Musculoskeletal Musculoskeletal: Reports back pain and neck pain Integumentary Denies abscess or rash Neurologic Neurologic: Denies headache(s) or weakness Allergic/Immunologic Allergic/Immunologic ED: Denies mouth swelling or urticaria EXAM Physical Exam Const Vital Signs: 02/08/25 12:09 Temperature 98 F Temperature Source Oral Pulse Rate 52 L Respiratory Rate 18 Blood Pressure 86/75 L Blood Pressure Mean 78 Pulse Ox 99 Oxygen Delivery Method Room Air Positive well nourished and well developed Constitutional Narrative: BMI is 27.3. General Appearance ED: well developed and NAD HEENT Reports moist mucous membranes Neck full ROM and supple Resp normal respiratory effort and clear to auscultation bilaterally Cardio regular rate and regular rhythm GI non-tender and non-distended Palpation: soft Extremity Extremity Narrative: There is tenderness over the right shoulder and proximal humerus. There is no deformity noted. There is no ecchymosis noted. Range of motion is limited in all motions of the right shoulder secondary to pain. Strength is 5/5 in the radial, median, and ulnar areas. Sensation was intact to light touch in the radial, median, and ulnar areas. There is good radial pulse noted. Neuro oriented x3, CN's II-XII intact bilaterally, moves all extremities, no focal motor deficits and no sensory deficits noted Sensorium / Orientation: alert Motor Exam: strength 5/5 throughout Psych mental status grossly normal MDM MDM MDM Narrative Medical decision making narrative: Differential diagnosis includes fracture, sprain, and contusion. X-rays of the right shoulder will be obtained to assess for fracture and dislocation. Radiography Diagnostic Testing: X-rays of the right shoulder were obtained. There are 4 views. On my independent interpretation, there is no acute fracture. There are some degenerative changes noted. There is no dislocation noted. Radiologist also interpreted the x-rays and agrees. Treatment and Re-Evaluation Narrative: Patient was advised of her findings. Patient instructed use ice to the area. Patient was instructed to take Tylenol or ibuprofen as needed for pain. Patient was instructed to follow-up with her primary care physician in 5 to 7 days. Patient was given a sling for comfort. Patient was instructed to take this off at bedtime. Patient was instructed to return if worse in any way. Patient understood and was agreeable with the plan. All questions were answered. Discharge Plan Triage Chief Complaint: Fall ED Provider: Perico Bar Dx/Rx/DC Orders Clinical Impression: Contusion of right shoulder, Fall, Type II diabetes mellitus, Dementia Instructions: ED Shoulder Bruise Prescriptions: No Action valsartan 320 mg tablet 320 mg PO DAILY Patient Comments: TAKE 1 TABLET BY MOUTH EVERY DAY meclizine 12.5 mg tablet 12.5 mg PO Q6H PRN (Reason: dizziness) clobetasol 0.05 % ointment 1 applic topical BID PRN (Reason: rash) hyoscyamine sulfate 0.125 mg tablet, sublingual 0.125 mg sublingual Q4H PRN (Reason: dyspepsia) linagliptin 5 mg tablet 5 mg PO DAILY nystatin 100,000 unit/gram powder 1 applic topical BID PRN (Reason: rash) ondansetron 4 mg tablet,disintegrating 4 mg PO Q6H PRN (Reason: nausea and vomiting) Florajen Acidophilus 20 billion cell capsule 20,000 mmu cells PO QDAY Qty: 90 1RF polyethylene glycol 3350 [Miralax] 17 gram/dose powder 8.5 g PO ONCE Qty: 850 1RF tolterodine [Detrol LA] 2 MG capsule,extended release 24hr 2 mg PO QHS Patient Comments: URINARY MEDICATION atorvastatin 40 MG tablet 40 mg PO QHS Patient Comments: CHOLESTEROL fluoxetine 40 mg capsule 40 mg PO DAILY amlodipine 10 mg tablet 10 mg PO DAILY metformin 1,000 mg tablet 1,000 mg PO BID hydrochlorothiazide 12.5 mg capsule 12.5 mg PO DAILY bupropion HCl 150 mg tablet extended release 24 hr 150 mg PO DAILY calcium carbonate-vitamin D3 600 mg-5 mcg (200 unit) Tablet 1 tab PO DAILY aspirin 81 mg Tablet,Chewable 162 mg PO DAILYCM Qty: 30 0RF magnesium hydroxide [Milk of Magnesia] 400 mg/5 mL suspension 30 ml PO DAILY PRN (Reason: constipation) acetaminophen [Tylenol] 325 mg capsule 650 mg PO Q4H PRN (Reason: fever or pain) glimepiride 1 mg tablet 1 mg PO DAILY Patient Comments: TAKE 1 TABLET BY MOUTH EVERY DAY WITH BREAKFAST gabapentin 100 mg capsule PO oxycodone 5 mg tablet PO Primary Care Provider: Jose E Garcia Referrals: Dhiraj Julian MD [Non-Staff] - 5-7 Days Print Language: Romanian Disposition Disposition: Home, Self Care
--- NOTE | 2025-02-08 13:40 | RAD_ITS ---
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 The AC joint is aligned with the mild hypertrophy. There is no acute fracture or dislocation identified. Osteopenia is noted. Vascular calcifications are present. RAD/Shoulder min 2 Views IMPRESSION: No acute fracture or dislocation is identified. Reading Location: [facility]
[2025-02-08 14:09] VITALS: BP 144/86; PULSE 93; RESP 18; O2SAT 100
[2025-02-08 15:13] VITALS: BP 140/82; PULSE 93; RESP 18; TEMP 36.7; O2SAT 98
== END 2025-02-08 15:16 | disposition home or self-care (01) ==
PROVIDERS: Emergency Provider Emergency Medicine; PCP Family Medicine; Visit Provider Emergency Medicine
DX: S40.011A Contusion of right shoulder, initial encounter (principal); F03.90 Unspecified dementia, unspecified severity, without behavioral disturbance, psychotic disturbance, mood disturbance, and anxiety; E11.42 Type 2 diabetes mellitus with diabetic polyneuropathy; I10 Essential (primary) hypertension; E78.00 Pure hypercholesterolemia, unspecified; Z79.84 Long term (current) use of oral hypoglycemic drugs; Z79.899 Other long term (current) drug therapy; Z87.891 Personal history of nicotine dependence; W19.XXXA Unspecified fall, initial encounter
CPT/HCPCS: 73030; 99283

== ENCOUNTER 2025-04-24 17:58 | Observation (INO) | payer MEDICARE, OTHER, SELFPAY ==
[2025-04-24 17:59] VITALS: BP 118/65; PULSE 68; RESP 16; TEMP 36.4; O2SAT 100
--- NOTE | 2025-04-24 18:23 | EKG12_ITS ---
Test Reason : FALL Blood Pressure : */* mmHG Vent. Rate : 72 BPM Atrial Rate : 72 BPM P-R Int : 146 ms QRS Dur : 86 ms QT Int : 416 ms P-R-T Axes : 75 -26 70 degrees QTcB Int : 455 ms Sinus rhythm with occasional Premature ventricular complexes Otherwise normal ECG Confirmed by HEMALATHA AREVALO, ELADIO ([id number]), photography editor ANGELA DAVIDSON ([id number]) on 04/27/2025 7:39:55 AM Referred By: KRISTEN Confirmed By: ELADIO PENNY MD
--- NOTE | 2025-04-24 18:23 | EKG12_ITS ---
Test Reason : FALL Blood Pressure : */* mmHG Vent. Rate : 72 BPM Atrial Rate : 72 BPM P-R Int : 146 ms QRS Dur : 86 ms QT Int : 416 ms P-R-T Axes : 75 -26 70 degrees QTcB Int : 455 ms Sinus rhythm with occasional Premature ventricular complexes Otherwise normal ECG Confirmed by HEMALATHA AREVALO, ELADIO ([id number]), desk editor ANGELA DAVIDSON ([id number]) on 04/27/2025 7:39:55 AM Referred By: KRISTEN Confirmed By: ELADIO PENNY MD
--- NOTE | 2025-04-24 18:23 | RAD_ITS ---
PROCEDURE: PELVIS 1 OR 2 VIEWS 04/24/2025 REASON FOR EXAM: FALL TECHNIQUE: Procedure Code: RADPEL Modality: DX Procedure: PELVIS 1 OR 2 VIEWS FINDINGS: AP view of the pelvis demonstrates no fracture or dislocation RAD/Pelvis 1 or 2 Views IMPRESSION: Negative for fracture Reading [facility]
--- NOTE | 2025-04-24 18:23 | RAD_ITS ---
PROCEDURE: PELVIS 1 OR 2 VIEWS 04/24/2025 REASON FOR EXAM: FALL TECHNIQUE: Procedure Code: RADPEL Modality: DX Procedure: PELVIS 1 OR 2 VIEWS FINDINGS: AP view of the pelvis demonstrates no fracture or dislocation RAD/Pelvis 1 or 2 Views IMPRESSION: Negative for fracture Reading [facility]
--- NOTE | 2025-04-24 18:23 | RAD_ITS ---
PROCEDURE: KNEE 1 OR 2 VIEWS 04/24/2025 REASON FOR EXAM: FALL TECHNIQUE: Procedure Code: RADK Modality: DX Procedure: KNEE 1 OR 2 VIEWS Laterality: Left FINDINGS: Two views of the left knee demonstrate tibiofemoral and patellofemoral joint space narrowing with osteophytic spurring and chondrocalcinosis. Small joint effusion. No fracture RAD/Knee 1 or 2 Views IMPRESSION: Degenerative changes without fracture Reading Location[facility]
--- NOTE | 2025-04-24 18:23 | RAD_ITS ---
PROCEDURE: KNEE 1 OR 2 VIEWS 04/24/2025 REASON FOR EXAM: FALL TECHNIQUE: Procedure Code: RADK Modality: DX Procedure: KNEE 1 OR 2 VIEWS Laterality: Left FINDINGS: Two views of the left knee demonstrate tibiofemoral and patellofemoral joint space narrowing with osteophytic spurring and chondrocalcinosis. Small joint effusion. No fracture RAD/Knee 1 or 2 Views IMPRESSION: Degenerative changes without fracture Reading Location: [facility]
--- NOTE | 2025-04-24 18:24 | CT_ITS ---
PROCEDURE: BRAIN/HEAD WITHOUT CONTRAST 04/24/2025 REASON FOR EXAM: AMS, FALL TECHNIQUE: Procedure Code: CTBR Modality: CT Procedure: BRAIN/HEAD WITHOUT CONTRAST Coronal and Sagittal reconstruction series were provided. One or more dose reduction techniques were used (e.g., Automated exposure control, adjustment of the mA and/or kV according to patient size, use of iterative reconstruction technique. COMPARISON: 06/20/2023 FINDINGS: There is no extra-axial or intra-axial intracranial hemorrhage. No mass effect or midline shift is seen. Generalized intracranial volume loss and findings compatible with chronic microvascular white matter ischemia. There is normal dumont-white matter differentiation. The posterior fossa is grossly unremarkable. The skull is unremarkable. Visualized paranasal sinuses are clear. The mastoid air cells show normal translucency. CT/Brain/Head without Contrast IMPRESSION: 1. No intracranial hemorrhage. No mass effect or midline shift. 2. Chronic involutional and ischemic gliotic white matter changes. Reading Location: [facility]
--- NOTE | 2025-04-24 18:24 | CT_ITS ---
PROCEDURE: BRAIN/HEAD WITHOUT CONTRAST 04/24/2025 REASON FOR EXAM: AMS, FALL TECHNIQUE: Procedure Code: CTBR Modality: CT Procedure: BRAIN/HEAD WITHOUT CONTRAST Coronal and Sagittal reconstruction series were provided. One or more dose reduction techniques were used (e.g., Automated exposure control, adjustment of the mA and/or kV according to patient size, use of iterative reconstruction technique. COMPARISON: 06/20/2023 FINDINGS: There is no extra-axial or intra-axial intracranial hemorrhage. No mass effect or midline shift is seen. Generalized intracranial volume loss and findings compatible with chronic microvascular white matter ischemia. There is normal dumont-white matter differentiation. The posterior fossa is grossly unremarkable. The skull is unremarkable. Visualized paranasal sinuses are clear. The mastoid air cells show normal translucency. CT/Brain/Head without Contrast IMPRESSION: 1. No intracranial hemorrhage. No mass effect or midline shift. 2. Chronic involutional and ischemic gliotic white matter changes. Reading Location: [facility]
--- NOTE | 2025-04-24 18:25 | CT_ITS ---
PROCEDURE: SPINE CERVICAL WITHOUT CONTRAS 04/24/2025 REASON FOR EXAM: FALL TECHNIQUE: Procedure Code: CTSPC Modality: CT Procedure: SPINE CERVICAL WITHOUT CONTRAS Coronal and Sagittal reconstruction series were provided. One or more dose reduction techniques were used (e.g., Automated exposure control, adjustment of the mA and/or kV according to patient size, use of iterative reconstruction technique. RADIATION DOSE SUMMARY: CTDlvol: 15.9 mGy DLP: 325 mGycm COMPARISON: Cervical spine radiographs 12/17/2024 FINDINGS: Cervical vertebral body heights are maintained. There is minimal anterolisthesis from C3 through C6 which is unchanged. No displaced fracture. There are calcifications surrounding the odontoid process. Multilevel disc height loss with uncovertebral and facet arthropathy, worst at C6-7. Prevertebral soft tissues are unremarkable. Carotid atherosclerosis. Lung apices are clear. Right mastoid effusion. CT/Spine Cervical without Contras IMPRESSION: No displaced fracture or traumatic malalignment of the cervical spine. Multile shivam degenerative changes worst at C6-7. Reading Location: [facility]
--- NOTE | 2025-04-24 18:25 | CT_ITS ---
PROCEDURE: SPINE CERVICAL WITHOUT CONTRAS 04/24/2025 REASON FOR EXAM: FALL TECHNIQUE: Procedure Code: CTSPC Modality: CT Procedure: SPINE CERVICAL WITHOUT CONTRAS Coronal and Sagittal reconstruction series were provided. One or more dose reduction techniques were used (e.g., Automated exposure control, adjustment of the mA and/or kV according to patient size, use of iterative reconstruction technique. RADIATION DOSE SUMMARY: CTDlvol: 15.9 mGy DLP: 325 mGycm COMPARISON: Cervical spine radiographs 12/17/2024 FINDINGS: Cervical vertebral body heights are maintained. There is minimal anterolisthesis from C3 through C6 which is unchanged. No displaced fracture. There are calcifications surrounding the odontoid process. Multilevel disc height loss with uncovertebral and facet arthropathy, worst at C6-7. Prevertebral soft tissues are unremarkable. Carotid atherosclerosis. Lung apices are clear. Right mastoid effusion. CT/Spine Cervical without Contras IMPRESSION: No displaced fracture or traumatic malalignment of the cervical spine. Multile shivam degenerative changes worst at C6-7. Reading Location: [facility]
[2025-04-24 18:41] LABS: Mucous, Urine 0 SEEN /hpf (<or=2+); Red Blood Cells-Urine 0 SEEN /hpf (0-5)
[2025-04-24 18:43] LABS: Hematocrit 40.0 % (37-47); Hemoglobin 13.1 g/dL (12.0-15.0); Immature Granulocytes Count 0.040 X10^3/uL (0.0-0.0); Mean Corp Hgb Conc 32.8 g/dL (32-36); Mean Corpuscular Volume 81.1 fL (81-99); Mean Platelet Vol. 12.0 fl (6.2-12.0); NRBC Flagged by Analyzer 0 % (0-5); Platelet Count 199 K/mm3 (150-450); RBC Distribution Width CV 13.8 % (11.6-14.6); RBC Distribution Width SD 40.3 fl (35.1-43.9); Red Blood Count 4.93 M/mm3 (4.2-5.4); White Blood Count 11.3 K/mm3 (4.4-11.0)
[2025-04-24 18:43] LABS: Color, Urine Yellow (Yellow); Glucose, Dipstick 1000 mg/dl (Normal); Ketone-Dipstick Negative (Negative); Leukocyte Esterase-Dipstick Negative /ul (Negative); Nitrite-Dipstick Negative (Negative); Occult Blood-Urine Negative /ul (Negative); Protein-Dipstick 30 mg/dl (Negative); Specific Gravity, Urine 1.010 (1.002-1.030); Urine Bilirubin Dipstick Negative (Negative)
--- NOTE | 2025-04-24 18:43 | EDS_ITS ---
HPI History of Present Illness Chief Complaint: Fall Narrative Narrative: Patient is a 85-year-old female with a past medical history of depression, migraine headaches, chronic neck and back pain, hypercholesteremia, type 2 diabetes, hypertension who presented to the emergency department with a chief complaint of left leg pain and inability to fall. According to the daughter at bedside who provides history of present illness secondary to her dementia and confusion she states that she fell yesterday and notes that she has had worsening pain and inability to ambulate therefore she was concerned that something may be broken prompting her to come here for further evaluation management. She states that last week they checked her for a UTI and noted that this was negative. She states that she is unsure if she does have a urinary tract infection or if the pain is causing her confusion and hallucinations. States that this was a witnessed fall and notes that she did not hit her head she did not pass out. She denies any blood thinning medications. [facility] Medical History Nonrheumatic aortic (valve) stenosis Irregular heart beat Constipation Sacral fracture Essential hypertension Forgetfulness Pancreatitis Wears glasses Depression Cancer Open wound Diabetes Ambulates with cane Injury of back Back pain Migraine headache Dietary restriction History of hiatal hernia History of pain when walking Normal stress echocardiogram History of stress test Hx of cataract Nausea Fecal incontinence GI bleeding High cholesterol Carpal tunnel syndrome Arthritis Liver lesion, right lobe Kidney stone on left side Peripheral neuropathy Multiple lung nodules Type II diabetes mellitus Hypertension Home Medications ?Medication ?Instructions ?Recorded ?Last Taken ?Type atorvastatin 40 mg tablet 40 mg PO QHS cholestrol 09/25 10 Days Ago History ~04/22/21 tolterodine 2 mg capsule,extended 2 mg PO QHS overacti ve bladder 02/14/14 05/01/21 History release 24 hr (Detrol LA) valsartan 320 mg tablet 320 mg PO DAILY HTN 04/10/21 07/05/21 06:30 History amlodipine 10 mg tablet 10 mg PO DAILY bp 05/02/21 0 03/26/22 05:00 History bupropion HCl 150 mg 24 hr tablet, 150 mg PO DAILY moo d 05/02/21 03/26/22 05:00 History extended release fluoxetine 40 mg capsule 40 mg PO DAILY depression 03/26/22 05:00 History hydrochlorothiazide 12.5 mg capsule 12.5 mg PO DAILY b p/fluid 05/02/21 10 Days Ago History ~04/22/21 clobetasol 0.05 % topical ointment 1 applic topical BI D PRN rash 01/25/23 Unknown History hyoscyamine sulfate 0.125 mg 0.125 mg sublingual Q4H P RN 01/25/23 Unknown History sublingual tablet dyspepsia linagliptin 5 mg tablet 5 mg PO DAILY 01/25/23 Unkno wn History meclizine 12.5 mg tablet 12.5 mg PO Q6H PRN dizziness 01/25/23 02/08/25 History ondansetron 4 mg disintegrating 4 mg PO Q6H PRN nausea and vomiting 02/13/23 Unknown History tablet magnesium hydroxide 400 mg/5 mL 30 ml PO DAILY PRN con stipation 08/04/23 Unknown History oral suspension (Milk of Magnesia) glimepiride 1 mg tablet 1 mg PO DAILY 08/05/23 Unkno wn History Lactobacillus acidophilus 20 20,000 mmu cells PO QDAY #90 caps 07/30/24 Unknown Rx billion cell capsule (Florajen Acidophilus) cyanocobalamin (vitamin B-12) 1,000 mcg PO DAILY 02/08 Unknown History 1,000 mcg tablet inulin 1.7 gram chewable tablet 1.7 g PO DAILY 5 Unknown History (Fiber Gummies) lactase 3,000 unit tablet (Lactaid) 3,000 unit PO BID FOR LACTOSE 02/08/25 Unknown History INTOLERANCE loperamide 2 mg capsule 2 mg PO PRN LOOSE STOOL 01/13 03/08 Unknown History (Anti-Diarrheal (loperamide)) metformin 500 mg tablet 500 mg PO BID 02/08/25 Unkno wn History multivitamin with minerals 1 tab PO DAILY 02/08/25 Unk nown History (Multiple Vitamin-Minerals tablet) oxycodone 5 mg tablet 2.5 mg PO BID PRN pain 02/08 Unknown History polyethylene glycol 3350 17 17 g PO QODAY CONSTIPATION 02/08/25 Unknown History gram/dose oral powder (Miralax) Allergy/AdvReac Type Severity Reaction Status Date / Time acetaminophen (From Vicodin) Allergy Severe Anaphylaxis Verified 04/24/25 18:01 duloxetine Allergy Severe Hallucinati Verified 04/24/25 18:01 ons hydrocodone (From Vicodin) Allergy Severe Anaphylaxis Verified 04/24/25 18:01 levofloxacin (From Levaquin) Allergy Unknown Hallucinations, Verified 04/24/25 18:01 joint pain oxaprozin Allergy Unknown Unknown Verified 04/24/25 18:01 prednisone Allergy Unknown Unknown Verified 04/24/25 18:01 codeine Allergy Anaphylaxis Verified 04/24/25 18:01 crab Allergy Swollen Verified 04/24/25 18:01 lymph glands hydrocodone bitartrate (From AdvReac Vomiting Verified 04/24/25 18:01 Vicodin) zolpidem tartrate (From AdvReac Other Verified 04/24/25 18:01 Ambien) Family History Grandmother Parkinson disease Father Hypertension CVA (cerebral vascular accident) Diabetes Myocardial infarction Brother Sarcoid Surgical History History of cataract extraction S/P laminectomy Hx of cystoscopy History of back surgery History of 2 sections Hx of detached retina repair Hx of total knee replacement History of cholecystectomy H/O: hysterectomy Social History household members: none Smoking Status: Former smoker quit date: 01/30/71 how long ago did patient quit smokin alcohol intake: never substance use type: does not use caffeine: No ROS ROS ED ROS Narrative Constitutional: Denies headache, fevers, chills Eyes: Denies double vision Cardiovascular: Denies chest pain Respiratory: Denies shortness of breath Abdomen: Denies any abdominal pain nausea vomit diarrhea : Denies urinary symptoms Neurological: Denies any numbness or tingling Musculoskeletal: Complains of left leg pain Skin: Denies any rashes or lesions EXAM Physical Exam Narrative Exam Narrative: General: Patient was lying in bed resting comfortably did not appear to be in acute distress Head: Atraumatic, normocephalic Eyes: PERRL bilaterally, EOMI bilaterally, no conjunctival injection noted Neck: Soft, supple, trachea midline Cardiovascular: Regular rate and rhythm Respiratory: Clear to auscultation bilaterally Abdomen: Soft, nondistended, no tenderness to palpation Musculoskeletal: Patient has tenderness palpation of the left proximal tibia/fibula, left knee, left distal femur although bony prominence palpated joints taken to full range of motion no pain elicited Extremities: Radial pulses +2/4 in the bilateral extremities Neurological: Patient knew that she was at the hospital is slightly more confused according to daughter at bedside Skin: Warm, dry, tact no rashes or lesions noted Const Vital Signs: 04/24/25 17:59 04/24/25 18:23 04/24/25 20:00 Temperature 97.5 F L Temperature Source Temporal Pulse Rate 68 70 Respiratory Rate 16 16 Respiratory Effort Normal Respiratory Depth Normal Respiratory Pattern Normal Blood Pressure 118/65 131/59 H Blood Pressure Mean 82 83 Pulse Ox 100 95 Oxygen Delivery Method Room Air Room Air 04/24/25 22:00 04/24/25 22:00 04/25/25 00:00 Temperature 98.2 F Temperature Source Pulse Rate 70 70 63 Respiratory Rate 16 16 16 Respiratory Effort Respiratory Depth Respiratory Pattern Blood Pressure 119/74 119/74 119/57 L Blood Pressure Mean 89 89 77 Pulse Ox 98 98 100 Oxygen Delivery Method Room Air Room Air MDM MDM MDM Narrative Medical decision making narrative: Patient is 85-year-old female who presents to the emergency department the chief complaint of left leg pain and confusion after fall yesterday. On the differential diagnose includes but not limited to intracranial hemorrhage, UTI, distal femur fracture, tibial plateau fracture. Once workup is obtained reviewed she will be reevaluated. Patient CBC was reviewed and showed a white blood cell count of 11,000, he was 13.1, platelet count was noted be 199. Patient sodium was 134, potassium was 3.6, creatinine was elevated 1.22. Patient's AST and ALT are 29 and 26 respectively. Patient's lipase was 63, urinalysis reviewed and showed no evidence of infection. Patient's x-ray were delayed and took significant time to return. Patient x-ray of femur reviewed and showed no acute fracture or dislocation the show reviewed by myself and by radiology. Patient's pelvis x-ray reviewed by myself by radiology which showed no acute fracture or dislocation. Patient x- ray of her knee reviewed by myself by radiology showed no acute fracture or dislocation degenerative changes noted. Patient CT head brain without contrast showed no acute intracranial hemorrhage chronic involutional changes noted. Patient CT cervical spine reviewed which showed no acute fracture or listhesis multilevel degenerative changes worse at C6 and C7. Patient is unable to ambulate secondary to pain therefore we will discuss case with hospitalist for admission as she is in assisted living currently and will likely require placement for rehab. Lab Data Labs: Laboratory Results - last 24 hr 04/24/25 04/24/25 18:15 18:16 WBC 11.3 H RBC 4.93 Hgb 13.1 Hct 40.0 MCV 81.1 MCH 26.6 L MCHC 32.8 RDW Std Deviation 40.3 RDW Coeff of [place] 13.8 Plt Count 199 MPV 12.0 Immature Gran % (Auto) 0.400 Neut % (Auto) 56.9 Lymph % (Auto) 28.9 [place] % (Auto) 13.2 H Eos % (Auto) 0.4 Baso % (Auto) 0.2 Absolute Neuts (auto) 6.4 Absolute Lymphs (auto) 3.25 Nucleated RBC % 0 Sodium 134 Potassium 3.6 Chloride 98 Carbon Dioxide 21.5 Anion Gap 15 BUN 25 H Creatinine 1.22 H Est GFR (MDRD) Non-Af 44 L BUN/Creatinine Ratio 20.6 H Glucose 151 H Calcium 10.0 Total Bilirubin 1.63 H AST 29 ALT 26 Alkaline Phosphatase 126 H Total Protein 7.3 Albumin 4.0 Globulin 3.3 Albumin/Globulin Ratio 1.2 Lipase 63 Urine Color Yellow Urine Clarity Clear Urine pH 7.0 Ur Specific [place] 1.010 Urine Protein 30 H Urine Glucose (UA) 1000 H Urine Ketones Negative Urine Occult Blood Negative Urine Nitrite Negative Urine Bilirubin Negative Urine Urobilinogen Normal Ur Leukocyte Esterase Negative Urine RBC 0 SEEN Urine WBC 0-5 SEEN Ur Squamous Epith Cells 0-5 SEEN Urine Bacteria RARE Urine Mucus 0 SEEN Radiography Diagnostic Testing: Clinical Impression(s) from Imaging Studies Knee X-Ray 04/24/25 18:23 IMPRESSION: Degenerative changes without fracture Reading Location: [facility] Pelvis X-Ray 04/24/25 18:23 IMPRESSION: Negative for fracture Reading Location: [facility] Brain CT 04/24/25 18:24 IMPRESSION: 1. No intracranial hemorrhage. No mass effect or midline shift. 2. Chronic involutional and ischemic gliotic white matter changes. Reading [facility] Cervical Spine CT 04/24/25 18:25 IMPRESSION: No displaced fracture or traumatic malalignment of the cervical spine. Multilevel degenerative changes worst at C6-7. Reading Location: [facility] Femur X-Ray 04/24/25 19:10 IMPRESSION: Negative for fracture Reading Location[facility] Discharge Plan Triage Chief Complaint: Fall ED Provider: Dave Laguerre Dx/Rx/DC Orders Prescriptions: No Action valsartan 320 mg tablet 320 mg PO DAILY Patient Comments: TAKE 1 TABLET BY MOUTH EVERY DAY meclizine 12.5 mg tablet 12.5 mg PO Q6H PRN (Reason: dizziness) clobetasol 0.05 % ointment 1 applic topical BID PRN (Reason: rash) hyoscyamine sulfate 0.125 mg tablet, sublingual 0.125 mg sublingual Q4H PRN (Reason: dyspepsia) linagliptin 5 mg tablet 5 mg PO DAILY ondansetron 4 mg tablet,disintegrating 4 mg PO Q6H PRN (Reason: nausea and vomiting) Florajen Acidophilus 20 billion cell capsule 20,000 mmu cells PO QDAY Qty: 90 1RF tolterodine [Detrol LA] 2 MG capsule,extended release 24hr 2 mg PO QHS Patient Comments: URINARY MEDICATION atorvastatin 40 MG tablet 40 mg PO QHS Patient Comments: CHOLESTEROL fluoxetine 40 mg capsule 40 mg PO DAILY amlodipine 10 mg tablet 10 mg PO DAILY hydrochlorothiazide 12.5 mg capsule 12.5 mg PO DAILY bupropion HCl 150 mg tablet extended release 24 hr 150 mg PO DAILY magnesium hydroxide [Milk of Magnesia] 400 mg/5 mL suspension 30 ml PO DAILY PRN (Reason: constipation) glimepiride 1 mg tablet 1 mg PO DAILY Patient Comments: TAKE 1 TABLET BY MOUTH EVERY DAY WITH BREAKFAST oxycodone 5 mg tablet 2.5 mg PO BID PRN (Reason: pain) Multiple Vitamin-Minerals Tablet 1 tab PO DAILY cyanocobalamin (vitamin B-12) 1,000 mcg tablet 1,000 mcg PO DAILY Fiber Gummies 1.7 gram tablet,chewable 1.7 g PO DAILY Rx Instructions: MED LIST FROM [facility] DOES NOT SPECIFY STRENGHTH lactase [Lactaid] 3,000 unit tablet 3,000 unit PO BID Rx Instructions: [facility] LIST DOES NOT SPECIFY STRENGTH metformin 500 mg tablet 500 mg PO BID loperamide [Anti-Diarrheal (loperamide)] 2 mg capsule 2 mg PO PRN Rx Instructions: T1T PRN EACH ADDITIONAL LOOSE STOOL polyethylene glycol 3350 [Miralax] 17 gram/dose powder 17 g PO QODAY Primary Care Provider: Jose E Garcia Referrals: Jose E Garcia MD [Primary Care Provider, Family Practice] Print Language: Italian
[2025-04-24] MEDS: 0.9% Normal Saline (1000mL) 1,000 ML 999 ML IV (18:48)
[2025-04-24 18:49] LABS: Squamous Epithelial Cells - UA 0-5 SEEN /hpf (5-10)
[2025-04-24 19:05] LABS: Lipase 63 U/L (13-75)
[2025-04-24 19:09] LABS: AST(SGOT) 29 U/L (<=31); Alanine Aminotransfer ALT/SGPT 26 U/L (<=34); Albumin, Serum 4.0 g/dL (3.4-4.8); Alkaline Phosphatase 126 U/L (35-104); Anion Gap 15 (5-15); BUN 25 mg/dL (4-19); BUN/Creat Ratio 20.6 RATIO (10-20); Calcium,Total 10.0 mg/dL (7.6-11.0); Carbon Dioxide 21.5 mmol/L (21.0-32.0); Chloride 98 mmol/L (98-108); Globulin 3.3 g/dL (2.2-4.2); Glucose 151 mg/dL (70-99); Potassium 3.6 mmol/L (3.3-5.1)
--- NOTE | 2025-04-24 19:10 | RAD_ITS ---
PROCEDURE: FEMUR MIN 2 VIEWS 04/24/2025 REASON FOR EXAM: FALL TECHNIQUE: Procedure Code: RADFEM Modality: DX Procedure: FEMUR MIN 2 VIEWS Laterality: Left FINDINGS: AP and lateral views left femur demonstrate no fracture RAD/Femur Min 2 Views IMPRESSION: Negative for fracture Reading [facility]
--- NOTE | 2025-04-24 19:10 | RAD_ITS ---
PROCEDURE: FEMUR MIN 2 VIEWS 04/24/2025 REASON FOR EXAM: FALL TECHNIQUE: Procedure Code: RADFEM Modality: DX Procedure: FEMUR MIN 2 VIEWS Laterality: Left FINDINGS: AP and lateral views left femur demonstrate no fracture RAD/Femur Min 2 Views IMPRESSION: Negative for fracture Reading [facility]
[2025-04-24] MEDS: fentaNYL 100 MCG/2 ML Ampul 50 MCG IV (19:23)
[2025-04-24 20:00] VITALS: BP 131/59; PULSE 70; RESP 16; O2SAT 95
[2025-04-24 22:00] VITALS: BP 119/74; PULSE 70; RESP 16; TEMP 36.8; O2SAT 98
[2025-04-25] VITALS: BP 119/57; PULSE 63; RESP 16; O2SAT 100
--- NOTE | 2025-04-25 00:32 | PCM.HP.STD ---
[facility] General Date of Admission: 04/25/25 Date of Service: 04/25/25 Chief Complaint: Fall with Left Leg Pain and Inability to Ambulate [facility] Narrative DILCIA HENRY, is a 85 F with a past medical history of essential hypertension; on valsartan, amlodipine and hydrochlorothiazide, hyperlipidemia; on atorvastatin, diabetes mellitus type 2; of unknown control on glimepiride, linagliptin and metformin twice daily, history of mild dementia; but the patient still lives independently, remote history of Young's palsy; with persistent Left facial droop, vertigo; on as needed meclizine, history of migraine headaches, history of nonrheumatic aortic valve stenosis, history of pancreatitis (2020), history of GI bleed, depression; since the of her approximately 4 years ago on bupropion and fluoxetine, history of bladder cancer, OAB; on tolterodine nightly, peripheral neuropathy, essential tremor, chronic constipation; on polyethylene glycol daily, and osteoarthritis; status post Left total knee replacement with chronic back/neck in the setting of spinal stenosis; s/p laminectomy with decreased sensation in the Left lower extremity on as needed oxycodone twice daily who presents to [facility] ER complaining of fall with Left leg pain and inability to ambulate. Ms. Henry is not a fully reliable historian at this time so information was gathered from chart, medical staff and computer. According to the records the patient's daughter informed the ER physician that she fell yesterday with worsening pain and inability to ambulate since that time so she decided to have her brought in for further evaluation and treatment because of elevated concern for underlying fracture. She states her mother tested negative for UTI last week which was done because of increasing confusion and hallucinations. The daughter also stated the fall was witnessed and she did not have LOC or significant head trauma. There was no report of associated fever, chills, changes in vision, discharge from eyes, chest pain, palpitations, heart racing, lower extremity edema, abdominal pain, nausea, vomiting, diarrhea, dysuria, hematuria, headache, paresthesias or rash. In the ER she underwent x-rays of her Left knee, pelvis and femur that were negative for acute fracture or dislocation in addition to CT scans of the brain and spine that were negative for acute pathologic changes with Leukocytosis of 11.3 K present on admission and a mild Hyperbilirubinemia of 1.63 mg/dL present on admission. She was then diagnosed with Left leg pain causing Ambulatory Dysfunction after recent Fall in the setting of worsening Chronic Dementia and she was then admitted to the general medical floor under observation status for a stay that is expected to be less than 2 midnights. [facility] Medical History Nonrheumatic aortic (valve) stenosis Irregular heart beat Constipation Sacral fracture Essential hypertension Forgetfulness Pancreatitis Wears glasses Depression Cancer Open wound Diabetes Ambulates with cane Injury of back Back pain Migraine headache Dietary restriction History of hiatal hernia History of pain when walking Normal stress echocardiogram History of stress test Hx of cataract Nausea Fecal incontinence GI bleeding High cholesterol Carpal tunnel syndrome Arthritis Liver lesion, right lobe Kidney stone on left side Peripheral neuropathy Multiple lung nodules Type II diabetes mellitus Hypertension Home Medications ?Medication ?Instructions ?Recorded ?Last Taken ?Type atorvastatin 40 mg tablet 40 mg PO QHS cholestrol 02/14/14 10 Days Ago History ~04/22/21 tolterodine 2 mg capsule,extended 2 mg PO QHS overactive bladder 02/14/14 05/01/21 History release 24 hr (Detrol [place]) valsartan 320 mg tablet 320 mg PO DAILY HTN 04/10/21 07/05/21 06:30 History amlodipine 10 mg tablet 10 mg PO DAILY bp 05/02/21 03/26/22 05:00 History bupropion HCl 150 mg 24 hr tablet, 150 mg PO DAILY mood 05/02/21 03/26/22 05:00 History extended release fluoxetine 40 mg capsule 40 mg PO DAILY depression 05/02/21 03/26/22 05:00 History hydrochlorothiazide 12.5 mg capsule 12.5 mg PO DAILY bp/fluid 05/02/21 10 Days Ago History ~04/22/21 clobetasol 0.05 % topical ointment 1 applic topical BID PRN rash 01/25/23 Unknown History hyoscyamine sulfate 0.125 mg 0.125 mg sublingual Q4H PRN 01/25/23 Unknown History sublingual tablet dyspepsia linagliptin 5 mg tablet 5 mg PO DAILY 01/25/23 Unknown History meclizine 12.5 mg tablet 12.5 mg PO Q6H PRN dizziness 01/25/23 02/08/25 History ondansetron 4 mg disintegrating 4 mg PO Q6H PRN nausea and vomiting 02/13/23 Unknown History tablet magnesium hydroxide 400 mg/5 mL 30 ml PO DAILY PRN constipation 08/04/23 Unknown History oral suspension (Milk of Magnesia) glimepiride 1 mg tablet 1 mg PO DAILY 08/05/23 Unknown History Lactobacillus acidophilus 20 20,000 mmu cells PO QDAY #90 caps 07/30/24 Unknown Rx billion cell capsule (Florajen Acidophilus) cyanocobalamin (vitamin B-12) 1,000 mcg PO DAILY 02/08/25 Unknown History 1,000 mcg tablet inulin 1.7 gram chewable tablet 1.7 g PO DAILY 02/08/25 Unknown History (Fiber Gummies) lactase 3,000 unit tablet (Lactaid) 3,000 unit PO BID FOR LACTOSE 02/08/25 Unknown History INTOLERANCE loperamide 2 mg capsule 2 mg PO PRN LOOSE STOOL 02/08/25 Unknown History (Anti-Diarrheal (loperamide)) metformin 500 mg tablet 500 mg PO BID 02/08/25 Unknown History multivitamin with minerals 1 tab PO DAILY 02/08/25 Unknown History (Multiple Vitamin-Minerals tablet) oxycodone 5 mg tablet 2.5 mg PO TID PRN PRN pain 02/08/25 Unknown History polyethylene glycol 3350 17 17 g PO QODAY CONSTIPATION 02/08/25 Unknown History gram/dose oral powder (Miralax) Allergy/AdvReac Type Severity Reaction Status Date / Time duloxetine Allergy Severe Hallucinati Verified 04/24/25 18:01 ons hydrocodone (From Vicodin) Allergy Severe Anaphylaxis Verified 04/24/25 18:01 levofloxacin (From Levaquin) Allergy Unknown Hallucinations, Verified 04/24/25 18:01 joint pain oxaprozin Allergy Unknown Unknown Verified 04/24/25 18:01 prednisone Allergy Unknown Unknown Verified 04/24/25 18:01 codeine Allergy Anaphylaxis Verified 04/24/25 18:01 crab Allergy Swollen Verified 04/24/25 18:01 lymph glands hydrocodone bitartrate (From AdvReac Vomiting Verified 04/24/25 18:01 Vicodin) zolpidem tartrate (From AdvReac Other Verified 04/24/25 18:01 Ambien) Family History Grandmother Parkinson disease Father Hypertension CVA (cerebral vascular accident) Diabetes Myocardial infarction Brother Sarcoid Surgical History History of cataract extraction S/P laminectomy Hx of cystoscopy History of back surgery History of 2 sections Hx of detached retina repair Hx of total knee replacement History of cholecystectomy H/O: hysterectomy Social History household members: none Smoking Status: Former smoker quit date: 01/30/71 how long ago did patient quit smokin alcohol intake: never substance use type: does not use caffeine: No ROS ROS Narrative Full ROS was not possible due to patient's dementia. Vital Signs Vital Signs Vital Signs: 04/24/25 17:59 04/24/25 18:23 04/24/25 20:00 Temperature 97.5 F L Temperature Source Temporal Pulse Rate 68 70 Respiratory Rate 16 16 Respiratory Effort Normal Respiratory Depth Normal Respiratory Pattern Normal Blood Pressure 118/65 131/59 H Blood Pressure Mean 82 83 Pulse Ox 100 95 Oxygen Delivery Method Room Air Room Air 04/24/25 22:00 04/24/25 22:00 04/25/25 00:00 Temperature 98.2 F Temperature Source Pulse Rate 70 70 63 Respiratory Rate 16 16 16 Respiratory Effort Respiratory Depth Respiratory Pattern Blood Pressure 119/74 119/74 119/57 L Blood Pressure Mean 89 89 77 Pulse Ox 98 98 100 Oxygen Delivery Method Room Air Room Air Results Medical Records Data Attestation: I reviewed the patient's medical records Lab / Micro Data Attestation: I reviewed the patient's lab results. 04/25/25 03:26 04/25/25 03:26 Labs: Laboratory Results - last 24 hr 04/24/25 18:15: Urine Color Yellow, Urine Clarity Clear, Urine pH 7.0, Ur Specific [place] 1.010, Urine Protein 30 H, Urine Glucose (UA) 1000 H, Urine Ketones Negative, Urine Occult Blood Negative, Urine Nitrite Negative, Urine Bilirubin Negative, Urine Urobilinogen Normal, Ur Leukocyte Esterase Negative, Urine RBC 0 SEEN, Urine WBC 0-5 SEEN, Ur Squamous Epith Cells 0-5 SEEN, Urine Bacteria RARE, Urine Mucus 0 SEEN 04/24/25 18:16: WBC 11.3 H, RBC 4.93, Hgb 13.1, Hct 40.0, MCV 81.1, MCH 26.6 L, MCHC 32.8, RDW Std Deviation 40.3, RDW Coeff of Finesse 13.8, Plt Count 199, MPV 12.0, Immature Gran % (Auto) 0.400, Neut % (Auto) 56.9, Lymph % (Auto) 28.9, [place] % (Auto) 13.2 H, Eos % (Auto) 0.4, Baso % (Auto) 0.2, Absolute Neuts (auto) 6.4, Absolute Lymphs (auto) 3.25, Nucleated RBC % 0, Sodium 134, Potassium 3.6, Chloride 98, Carbon Dioxide 21.5, Anion Gap 15, BUN 25 H, Creatinine 1.22 H, Est GFR (MDRD) Non-Af 44 L, BUN/Creatinine Ratio 20.6 H, Glucose 151 H, Calcium 10.0, Total Bilirubin 1.63 H, AST 29, ALT 26, Alkaline Phosphatase 126 H, Total Protein 7.3, Albumin 4.0, Globulin 3.3, Albumin/Globulin Ratio 1.2, Lipase 63 Imaging Radiology Impression Knee X-Ray 04/24/25 18:23 IMPRESSION: Degenerative changes without fracture Reading Location: [facility] Pelvis X-Ray 04/24/25 18:23 IMPRESSION: Negative for fracture Reading Location: [facility] Brain CT 04/24/25 18:24 IMPRESSION: 1. No intracranial hemorrhage. No mass effect or midline shift. 2. Chronic involutional and ischemic gliotic white matter changes. [facility] Cervical Spine CT 04/24/25 18:25 IMPRESSION: No displaced fracture or traumatic malalignment of the cervical spine. Multilevel degenerative changes worst at C6-7. Reading Location: [id number] Femur X-Ray 04/24/25 19:10 IMPRESSION: Negative for fracture Reading Location: [facility] Assessment & Plan Assessment/Plan (1) Inability to ambulate due to left knee: (2) Left leg pain: (3) Generalized weakness: (4) Fall: QUALIFIERS: Encounter type: initial encounter Qualified Code(s): W19.XXXA - Unspecified fall, initial encounter (5) Dementia: QUALIFIERS: Dementia behavioral or psychological symptom: with other behavioral disturbance Dementia severity: severe Dementia type: unspecified type Qualified Code(s): F03.C18 - Unspecified dementia, severe, with other behavioral disturbance (6) Leukocytosis: QUALIFIERS: Leukocytosis type: unspecified Qualified Code(s): D72.829 - Elevated white blood cell count, unspecified (7) Hyperbilirubinemia: PLAN: Plan 1. Left leg/knee pain causing Ambulatory Dysfunction and Generalized Weakness after recent Fall in the setting of previously known Osteoarthritis; status post Left total knee replacement with chronic back/neck in the setting of spinal stenosis; s/p laminectomy with decreased sensation in the Left lower extremity on as needed oxycodone twice daily plus history of Vertigo - Admit to general medical floor under observation status. Give ketorolac IV every 8 hours as needed for [id number] (level 1-5/10) pain or fever. Continue oxycodone twice daily as needed for severe (level 6-10/10) pain. Finally, we will consult PT/OT and Case Management sees patient on rounds in the a.m. as she will likely not be able to return to assisted living and will need a higher level of care with help appreciated in advance. 2. Acute worsening of Chronic Dementia complicating #1 - Check TSH, B12, Folate, HgbA1c and LINDSAY to evaluate for potentially reversible causes of confusion. Otherwise, continue current therapy as outlined above and monitor for improvement. 3. Leukocytosis of 11.3 K present on admission suspected to be due to acute stress response with no overt signs of infection at this time - Recheck CBC in AM to follow trend. 4. Hyperbilirubinemia of 1.63 mg/dL present on admission; incidentally noted with no active complaints related to this issue at this time - Serialize CMP to follow trend. 5. Essential hypertension; on valsartan, amlodipine and hydrochlorothiazide - Continue home regimen as before. 6. Hyperlipidemia; on atorvastatin - Resume statin and check Lipid Profile. 7. Diabetes mellitus type 2; of unknown control on glimepiride, linagliptin and metformin twice daily - Hold oral hypoglycemic agents while inpatient. Give cardiac/ADA diet and check FSBS q. ACHS plus lowest-intensity SSI. Check hemoglobin A1c to objectively evaluate quality of diabetic control. 8. Remote history of Young's palsy; with persistent Left facial droop - Noted. 9. History of migraine headaches - Noted with no active complaints related to this issue at this time. 10. History of nonrheumatic aortic valve stenosis - Noted. 11. History of pancreatitis (2020) - Noted. 12. History of GI bleed - Noted with no active signs of bleeding at this time. 13. Depression; since the of her approximately 4 years ago on bupropion and fluoxetine - Maintain home regimen as previous. 14. History of bladder cancer - Noted. 15. OAB; on tolterodine nightly - Current therapy to continue. 16. Peripheral neuropathy - Stable. 17. Essential tremor - Noted. 18. Chronic constipation; on polyethylene glycol daily - Resume current bowel regimen. 19. DVT prophylaxis - Enoxaparin 30 mg sq daily plus SCD's. Total time: Approximately (but not less than) 70 minutes. Charges/Coding Visit Charges OBSV E&M: 50197 Observ/hosp same date L2
[2025-04-25 01:53] VITALS: BMI 26.5
[2025-04-25 01:59] VITALS: BP 139/90; PULSE 68; RESP 18; TEMP 37.1; O2SAT 95
[2025-04-25] MEDS: MELATONIN 3 MG TABLET PO (02:10)
[2025-04-25] MEDS: 0.9% Normal Saline (1000mL) 1,000 ML 70 ML IV (02:10)
[2025-04-25 02:39] LABS: Magnesium 1.6 mg/dL (1.5-2.2)
[2025-04-25 02:40] LABS: FOLATES,SERUM (FOLIC ACID) 22.70 ng/mL (4.60-34.80)
[2025-04-25 03:09] LABS: Vitamin B12 1794 pg/mL (180-914)
[2025-04-25 03:57] LABS: Hematocrit 34.3 % (37-47); Hemoglobin 11.4 g/dL (12.0-15.0); Immature Granulocytes Count 0.030 X10^3/uL (0.0-0.0); Mean Corp Hgb Conc 33.2 g/dL (32-36); Mean Corpuscular Volume 81.5 fL (81-99); Mean Platelet Vol. 12.3 fl (6.2-12.0); NRBC Flagged by Analyzer 0 % (0-5); Platelet Count 160 K/mm3 (150-450); RBC Distribution Width CV 14.1 % (11.6-14.6); RBC Distribution Width SD 41.2 fl (35.1-43.9); Red Blood Count 4.21 M/mm3 (4.2-5.4); White Blood Count 9.8 K/mm3 (4.4-11.0)
[2025-04-25 04:27] LABS: AST(SGOT) 22 U/L (<=31); Alanine Aminotransfer ALT/SGPT 21 U/L (<=34); Albumin, Serum 3.4 g/dL (3.4-4.8); Alkaline Phosphatase 103 U/L (35-104); Anion Gap 11 (5-15); BUN 20 mg/dL (4-19); BUN/Creat Ratio 18.5 RATIO (10-20); Calcium,Total 8.6 mg/dL (7.6-11.0); Carbon Dioxide 22.1 mmol/L (21.0-32.0); Chloride 103 mmol/L (98-108); Estimated Creatinine Clearance 36.23 ml/min (50-250); Globulin 2.7 g/dL (2.2-4.2); Glucose 209 mg/dL (70-99); Potassium 3.7 mmol/L (3.3-5.1)
[2025-04-25] MEDS: 0.9% Saline Lock 10 ML Syringe IV (06:31)
--- NOTE | 2025-04-25 06:50 | PN.HOSP_ITS ---
Hospitalist Note Mrs. Felton is an 85-year-old female with pretty significant memory impairment who currently is a resident at [facility] and has had multiple falls presented to the emergency department late last evening after sustaining a fall the day prior to presentation. The patient has had several falls. She has had worsening pain and the inability to ambulate and her daughter was concerned that she might have a fracture. They did check for UTI this week at the nursing facility and it was unremarkable findings. Her mother has had some confusion and hallucinations. The most recent fall was witnessed and she did not hit her head or pass out. She is not on any blood thinners. Vitals showed a temperature of 97.5, heart rate 68, respiratory rate 16, blood pressure was 116/65 and pulse ox 100% on room air. Her CBC showed a very mild leukocytosis with a white count of 11.3. She did not have a left shift. Chemistry panel was overtly unremarkable. Liver functions were normal. UA is not consistent with infection. Patient was complaining of left knee pain and x-ray was performed and showed degenerative changes without fracture. Pelvic x-ray was unremarkable for any acute findings. CT of the brain showed chronic involutional changes and ischemia with gliotic white matter changes but no acute changes. Cervical spine CT was unremarkable for any acute findings but did show multilevel degenerative changes that were most severe at C6-C7. Femoral x-ray showed no fracture. I obtained a CT of the pelvis at area and proximal femurs which showed no fracture. I did discuss with the patient if she was actually using her walker when she was ambulating and fell. She denies using the walker when she fell but she also has not a great historian due to her memory issues. Ongoing physical therapy evaluation and hopeful for discharge back to [facility]. Patient might need more supervision then can be provided.
--- NOTE | 2025-04-25 07:30 | CT_ITS ---
PROCEDURE: PELVIS WITHOUT IV CONTRAST 04/25/2025 REASON FOR EXAM: PAIN AFTER FALL Or TECHNIQUE: Procedure Code: CTPEL Modality: CT Procedure: PELVIS WITHOUT IV CONTRAST One or more dose reduction techniques were used (e.g., Automated exposure control, adjustment of the mA and/or kV according to patient size, use of iterative reconstruction technique). RADIATION DOSE SUMMARY: CTDlvol: 15.2 mGy DLP: 475 mGycm COMPARISON: None FINDINGS: Bones: Prefer degenerative changes in the lumbar spine with surgical changes the lower lumbar spine. No definitive fracture Hip Joints: Degenerative changes in both hips marginal osteophyte formation. SI Joints: Nearly fused Soft Tissues: Intrapelvic contents negative. Vascular calcifications abdominal its branches. In the bladder negative. Hysterectomy. CT/Pelvis without IV Contrast IMPRESSION: Degenerative changes in the hips and pelvis. Negative for acute abnormality of the pelvis/hips. Reading Location: [id number]
--- NOTE | 2025-04-25 07:30 | CT_ITS ---
PROCEDURE: PELVIS WITHOUT IV CONTRAST 04/25/2025 REASON FOR EXAM: PAIN AFTER FALL Or TECHNIQUE: Procedure Code: CTPEL Modality: CT Procedure: PELVIS WITHOUT IV CONTRAST One or more dose reduction techniques were used (e.g., Automated exposure control, adjustment of the mA and/or kV according to patient size, use of iterative reconstruction technique). RADIATION DOSE SUMMARY: CTDlvol: 15.2 mGy DLP: 475 mGycm COMPARISON: None FINDINGS: Bones: Prefer degenerative changes in the lumbar spine with surgical changes the lower lumbar spine. No definitive fracture Hip Joints: Degenerative changes in both hips marginal osteophyte formation. SI Joints: Nearly fused Soft Tissues: Intrapelvic contents negative. Vascular calcifications abdominal its branches. In the bladder negative. Hysterectomy. CT/Pelvis without IV Contrast IMPRESSION: Degenerative changes in the hips and pelvis. Negative for acute abnormality of the pelvis/hips. Reading Location: [id number]
[2025-04-25 08:07] VITALS: BP 137/61; PULSE 61; RESP 18; TEMP 36.8; O2SAT 96
[2025-04-25] MEDS: Lactobacillis Acidophilus 1 CAP PO (08:22)
[2025-04-25] MEDS: LACTASE 9000 UNIT PO ×2 (08:23→16:33)
[2025-04-25] MEDS: buPROPion (XL) 150 MG TABLET.XL PO (08:26)
--- NOTE | 2025-04-25 09:23 | NURSING ---
Per nurse Abeba Castro, there is no current or historical order for weight bearing status.
--- NOTE | 2025-04-25 09:23 | NURSING ---
Per nurse Abeba Castro, there is no current or historical order for weight bearing status.
[2025-04-25] MEDS: FLU VACCINE HIGH DOSE 25-26(65YR UP) 180 MCG/0.5 ML SYRINGE IM (11:44)
[2025-04-25 14:04] VITALS: BP 131/58; PULSE 65; RESP 16; TEMP 36.6; O2SAT 100
[2025-04-25 20:41] VITALS: BP 122/55; PULSE 59; RESP 16; TEMP 36.8; O2SAT 100
[2025-04-26] VITALS (7 sets, daily range): BP systolic 115–154; BP diastolic 58–76; PULSE 56–70; RESP 16–18; TEMP 36.3–36.9; O2SAT 95–100; BMI 26.5
[2025-04-26 06:45] LABS: Hematocrit 38.9 % (37-47); Hemoglobin 12.6 g/dL (12.0-15.0); Mean Corp Hgb Conc 32.4 g/dL (32-36); Mean Corpuscular Volume 82.4 fL (81-99); Mean Platelet Vol. 12.0 fl (6.2-12.0); Platelet Count 173 K/mm3 (150-450); RBC Distribution Width CV 14.0 % (11.6-14.6); RBC Distribution Width SD 41.5 fl (35.1-43.9); Red Blood Count 4.72 M/mm3 (4.2-5.4); White Blood Count 9.8 K/mm3 (4.4-11.0)
[2025-04-26 07:35] LABS: Anion Gap 12 (5-15); BUN 33 mg/dL (4-19); BUN/Creat Ratio 15.1 RATIO (10-20); Calcium,Total 9.1 mg/dL (7.6-11.0); Carbon Dioxide 22.5 mmol/L (21.0-32.0); Chloride 105 mmol/L (98-108); Estimated Creatinine Clearance 17.95 ml/min (50-250); Glucose 225 mg/dL (70-99); Potassium 3.9 mmol/L (3.3-5.1)
[2025-04-26] MEDS: Lactobacillis Acidophilus 1 CAP PO (08:22)
[2025-04-26] MEDS: buPROPion (XL) 150 MG TABLET.XL PO (08:23)
[2025-04-26] MEDS: LACTASE 9000 UNIT PO ×2 (08:24→16:18)
--- NOTE | 2025-04-26 08:31 | PN.HOSP_ITS ---
Reason for Visit Chief Complaint: Fall with Left Leg Pain and Inability to Ambulate Subjective Subjective Patient is an 85-year-old lady admitted with progressive generalized weakness and left knee pain Objective Data Objective Data Vital Signs: Vital Signs Temp Pulse Resp BP Pulse Ox O2 Del Method 98.4 F 62 16 143/64 H 97 Room Air 04/26/25 07:46 04/26/25 07:46 04/26/25 07:46 04/26/25 07:46 04/26/25 07:46 04/26/25 07:46 Oxygen Delivery Method Room Air Weight: 68 kg Body Mass Index (BMI) 26.5 Intake & Output: Intake and Output for Last 24 Hours 04/24/25 04/25/25 04/26/25 23:59 23:59 23:59 Intake Total 1000 / 1000 1129.83 / 1129.83 Output Total 450 / 450 700 / 700 Balance 1000 / 1000 679.83 / 679.83 -700 / -700 Lab / Micro Data 04/26/25 06:32 04/26/25 06:32 Labs: Laboratory Results - last 24 hr 04/25/25 11:40: POC Glucose 289 H 04/25/25 16:31: POC Glucose 224 H 04/25/25 20:48: POC Glucose 171 H 04/26/25 06:06: POC Glucose 211 H 04/26/25 06:32: WBC 9.8, RBC 4.72, Hgb 12.6, Hct 38.9, MCV 82.4, MCH 26.7 L, MCHC 32.4, RDW Std Deviation 41.5, RDW Coeff of Finesse 14.0, Plt Count 173, MPV 12.0, Sodium 139, Potassium 3.9, Chloride 105, Carbon Dioxide 22.5, Anion Gap 12, BUN 33 H, Creatinine 2.16 H, Estim Creat Clear Calc 17.95 L, Est GFR (MDRD) Non-Af 22 L, BUN/Creatinine Ratio 15.1, Glucose 225 H, Calcium 9.1 Physical Exam Narrative GENERAL: cooperative HEENT: Atraumatic; normocephalic EYES; Anicteric, Normal Conjunctiva NECK; supple, normal thyroid, RESPIRATORY: Diminished to auscultation CARDIOVASCULAR: Regular S1 S2, GI: soft, normoactive bowel sounds, : No Renal angle tenderness; EXTREMITIES: No edema, no clubbing, MUSCULOSKELETAL: no muscle wasting NEURO: Awake; no lateralizing signs. SKIN: No Rash PSYCH; Flat affect Assessment & Plan Assessment/Plan (1) Inability to ambulate due to left knee: (2) Left leg pain: (3) Generalized weakness: (4) Fall: QUALIFIERS: Encounter type: initial encounter Qualified Code(s): W19.XXXA - Unspecified fall, initial encounter PLAN: Plan Patient is an 85-year-old lady admitted with progressive generalized weakness and left knee pain 1. Physical deconditioning ? Secondary to severe osteoarthritis with significant debility with left knee pain. Requested for PT OT eval and child protective services social worker to assist with discharge planning 2. Recurrent falls ? Requested for PT OT eval 3. Alzheimer's dementia with progressive decline ? Will continue supportive care 4. Diabetes mellitus type II -patient's oral hypoglycemics held. Placed on Accu-Cheks a.c. and at bedtime and covered with sliding scale insulin. 5. Hypertension - Blood pressure controlled, home medications continued with dose adjustment as needed 6. Dyslipidemia -Patient is on statin therapy, continued at home dose 7. History of bladder cancer ? 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 DVT prophylaxis - On enoxaparin Time spent in the patient's overall evaluation,decision-making process, review of diagnostic data, adjustment of management, discussion with other providers, nursing nursing and ancillary staff involved in patient's care documentation, 36 Minutes Charges/Coding Visit Charges Inpatient E&M: 61747 Subs Hosp L2
--- NOTE | 2025-04-26 12:32 | CHAPLAIN ---
Type of Pastoral Visit _x__ Initial Visit ___ Follow-up Visit ___ On-call Visit ___ General Patient Visit ___ Spiritual Assessment ___ Family Conference ___ Bereavement ___ Rapid Response ___ Code Blue ___ Other (describe below) Pastoral Care Referral From _x__ Patient ___ Family ___ Nurse ___ Physician ___ Plant Electrician ___ Patient Information Coordinator ___ Other (describe below) Sacrament/Intervention _x__ Active listening ___ Anointing ___ Hindu ___ Bereavement ___ Communion ___ Susi exploration ___ _x__ Life review _x__ Prayer ___ Reconciliation ___ Sacrament of Sick _x__ Supportive presence ___ Wedding ___ Other (describe below) Pastoral Comments patient is welcoming and very talkative; pt is excitedly watching the news for world events that are unfolding; pt talks much about her family and her style of parenting; pt does not bring up her medical condition but believes that she is doing well and has more time left when asked about her health and feelings of it; pt is a Adventist and welcomes prayer; pt has not been in sabianist for a long time due to her concerns for health issues while in a sabianist service; pt has great family support which she describes
--- NOTE | 2025-04-26 12:32 | CHAPLAIN ---
Type of Pastoral Visit _x__ Initial Visit ___ Follow-up Visit ___ On-call Visit ___ General Patient Visit ___ Spiritual Assessment ___ Family Conference ___ Bereavement ___ Rapid Response ___ Code Blue ___ Other (describe below) Pastoral Care Referral From _x__ Patient ___ Family ___ Nurse ___ Physician ___ Strategic Sourcing Consultant ___ Superintendent Menagerie ___ Other (describe below) Sacrament/Intervention _x__ Active listening ___ Anointing ___ Hoahaoism ___ Bereavement ___ Communion ___ Susi exploration ___ _x__ Life review _x__ Prayer ___ Reconciliation ___ Sacrament of Sick _x__ Supportive presence ___ Wedding ___ Other (describe below) Pastoral Comments patient is welcoming and very talkative; pt is excitedly watching the news for world events that are unfolding; pt talks much about her family and her style of parenting; pt does not bring up her medical condition but believes that she is doing well and has more time left when asked about her health and feelings of it; pt is a Congregational and welcomes prayer; pt has not been in christian for a long time due to her concerns for health issues while in a christian service; pt has great family support which she describes
--- NOTE | 2025-04-26 13:30 | CASEMGMT ---
Social Work- SW spoke with dtr Amara regarding discharge planning. SW introduced self and role; pt dtr agreeable to discussion. Pt dtr reports that the plan will be to return to [facility] with main campus medical center, which pt has had for about a month following a previous fall. [facility] updated. Hospitalist updated. SW remains available to follow. Plan: FELICITA Ramírez
--- NOTE | 2025-04-26 13:30 | CASEMGMT ---
Social Work- SW spoke with dtr Amara regarding discharge planning. SW introduced self and role; pt dtr agreeable to discussion. Pt dtr reports that the plan will be to return to [place] with [facility], which pt has had for about a month following a previous fall. DCA updated. Hospitalist updated. SW remains available to follow. Plan: FELICITA Ramírez
--- NOTE | 2025-04-26 14:39 | CASEMGMT ---
Discharge Planning Updates faxed to Shavon @ [facility]. Fax confirmation rec'jamel. Hattie Mayen DC Planning Asst.
--- NOTE | 2025-04-26 14:39 | CASEMGMT ---
Discharge Planning Updates faxed to Shavon @ [place]. Fax confirmation rec'jamel. Hattie Mayen DC Planning Asst.
--- NOTE | 2025-04-26 15:31 | CASEMGMT ---
CRAWFORD Met with patient to complete CRAWFORD form. CRAWFORD form and its content were verbally explained and patient's questions were answered to the best of my ability.? Patient voiced understanding and signed CRAWFORD form.? Patient provided a copy of signed CRAWFORD form and original placed in patient's chart.? Patient had no further questions. Hattie Mayen, Discharge Planning Asst
[2025-04-26] MEDS: Senna/Docusate Sodium 1 Tablet PO (22:59)
[2025-04-26] MEDS: 0.9% Saline Lock 10 ML Syringe IV (23:00)
[2025-04-27 04:43] VITALS: BMI 26.6
[2025-04-27 06:38] VITALS: BP 134/64; PULSE 61; RESP 16; TEMP 36.5; O2SAT 100
--- NOTE | 2025-04-27 07:50 | PCM.PN.HOSP ---
Reason for Visit Chief Complaint: Fall with Left Leg Pain and Inability to Ambulate Objective Data Objective Data Vital Signs: Vital Signs Temp Pulse Resp BP Pulse Ox O2 Del Method 97.7 F L 61 16 134/64 H 100 Room Air 04/27/25 06:38 04/27/25 06:38 04/27/25 06:38 04/27/25 06:38 04/27/25 06:38 04/27/25 07:10 Oxygen Delivery Method Room Air Weight: 68.1 kg Body Mass Index (BMI) 26.6 Intake & Output: Intake and Output for Last 24 Hours 04/25/25 04/26/25 04/27/25 23:59 23:59 23:59 Intake Total 1129.83 / 1129.83 1050 / 1050 Output Total 450 / 450 2400 / 2400 800 / 800 Balance 679.83 / 679.83 -1350 / -1350 -800 / -800 Lab / Micro Data 04/26/25 06:32 04/26/25 06:32 Labs: Laboratory Results - last 24 hr 04/26/25 11:13: POC Glucose 294 H 04/26/25 16:16: POC Glucose 180 H 04/26/25 22:58: POC Glucose 159 H 04/27/25 06:46: POC Glucose 180 H Physical Exam Narrative GENERAL: cooperative HEENT: Atraumatic; normocephalic EYES; Anicteric, Normal Conjunctiva NECK; supple, normal thyroid, RESPIRATORY: Diminished to auscultation CARDIOVASCULAR: Regular S1 S2, GI: soft, normoactive bowel sounds, : No Renal angle tenderness; EXTREMITIES: No edema, no clubbing, MUSCULOSKELETAL: no muscle wasting NEURO: Awake; no lateralizing signs. SKIN: No Rash PSYCH; Flat affect Assessment & Plan Assessment/Plan (1) Inability to ambulate due to left knee: (2) Left leg pain: (3) Generalized weakness: (4) Fall: QUALIFIERS: Encounter type: initial encounter Qualified Code(s): W19.XXXA - Unspecified fall, initial encounter PLAN: Plan Patient is an 85-year-old lady admitted with progressive generalized weakness and left knee pain 1. Physical deconditioning ? Secondary to severe osteoarthritis with significant debility with left knee pain. Requested for PT OT eval and transition social worker to assist with discharge planning ? 04/27/2025; patient back to baseline plan is for patient to be discharged back to her assisted living facility with home health 2. Recurrent falls ? Requested for PT OT eval 3. Alzheimer's dementia with progressive decline ? Will continue supportive care 4. Diabetes mellitus type II -patient's oral hypoglycemics held. Placed on Accu-Cheks a.c. and at bedtime and covered with sliding scale insulin. 5. Hypertension - Blood pressure controlled, home medications continued with dose adjustment as needed 6. Dyslipidemia -Patient is on statin therapy, continued at home dose 7. History of bladder cancer ? 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 DVT prophylaxis - On enoxaparin Time spent in the patient's overall evaluation,decision-making process, review of diagnostic data, adjustment of management, discussion with other providers, nursing nursing and ancillary staff involved in patient's care documentation, 35 Minutes Charges/Coding Visit Charges Inpatient E&M: 66085 Subs Hosp L2
[2025-04-27] MEDS: LACTASE 9000 UNIT PO (09:08)
[2025-04-27] MEDS: Lactobacillis Acidophilus 1 CAP PO (09:08)
[2025-04-27] MEDS: Senna/Docusate Sodium 1 Tablet PO (09:09)
[2025-04-27] MEDS: buPROPion (XL) 150 MG TABLET.XL PO (09:09)
[2025-04-27 09:16] VITALS: BP 154/71; PULSE 60; RESP 18; TEMP 36.6; O2SAT 98
--- NOTE | 2025-04-27 09:17 | PCM.DC.SUM ---
Providers Date of Admission: 04/25/25 Date of Discharge: 04/27/25 Primary Care Physician: Dr. Jose E Garcia MD Reason For Visit: FALL WITH LLE PAIN AND INABILITY TO AMBULATE Diagnosis Discharge Diagnosis (1) Inability to ambulate due to left knee: Status: Acute Code(s): R26.2 - Difficulty in walking, not elsewhere classified (2) Left leg pain: Status: Acute Code(s): M79.605 - Pain in left leg (3) Generalized weakness: Status: Acute Code(s): R53.1 - Weakness (4) Fall: Status: Acute Code(s): W19.XXXA - Unspecified fall, initial encounter Qualifiers: Encounter type: initial encounter Qualified Code(s): W19.XXXA - Unspecified fall, initial encounter Plan Patient is an 85-year-old lady admitted with progressive generalized weakness and left knee pain 1. Physical deconditioning ? Secondary to severe osteoarthritis with significant debility with left knee pain. Requested for PT OT eval and social service director to assist with discharge planning ? 04/27/2025; patient back to baseline plan is for patient to be discharged back to her assisted living facility with home health 2. Recurrent falls ? Requested for PT OT eval 3. Alzheimer's dementia with progressive decline ? Will continue supportive care 4. Diabetes mellitus type II -patient's oral hypoglycemics held. Placed on Accu-Cheks a.c. and at bedtime and covered with sliding scale insulin. 5. Hypertension - Blood pressure controlled, home medications continued with dose adjustment as needed 6. Dyslipidemia -Patient is on statin therapy, continued at home dose 7. History of bladder cancer ? 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 DVT prophylaxis - On enoxaparin Time spent in the patient's overall evaluation,decision-making process, review of diagnostic data, adjustment of management, discussion with other providers, nursing nursing and ancillary staff involved in patient's care documentation, 35 Minutes Medications at Discharge Home Medications atorvastatin 40 mg tablet 40 mg PO QHS cholestrol 02/14/14 tolterodine 2 mg capsule,extended release 24 hr (Detrol LA) 2 mg PO QHS overactive bladder 02/14/14 valsartan 320 mg tablet 320 mg PO DAILY HTN 04/10/21 amlodipine 10 mg tablet 10 mg PO DAILY bp 05/02/21 bupropion HCl 150 mg 24 hr tablet, extended release 150 mg PO DAILY mood 05/02/21 fluoxetine 40 mg capsule 40 mg PO DAILY depression 05/02/21 hydrochlorothiazide 12.5 mg capsule 12.5 mg PO DAILY bp/fluid 05/02/21 clobetasol 0.05 % topical ointment 1 applic topical BID PRN rash 01/25/23 hyoscyamine sulfate 0.125 mg sublingual tablet 0.125 mg sublingual Q4H PRN dyspepsia 01/25/23 linagliptin 5 mg tablet 5 mg PO DAILY 01/25/23 meclizine 12.5 mg tablet 12.5 mg PO Q6H PRN dizziness 01/25/23 ondansetron 4 mg disintegrating tablet 4 mg PO Q6H PRN nausea and vomiting 02/13/23 magnesium hydroxide 400 mg/5 mL oral suspension (Milk of Magnesia) 30 ml PO DAILY PRN constipation 08/04/23 glimepiride 1 mg tablet 1 mg PO DAILY 08/05/23 Lactobacillus acidophilus 20 billion cell capsule (Florajen Acidophilus) 20,000 mmu cells PO QDAY #90 caps 07/30/24 cyanocobalamin (vitamin B-12) 1,000 mcg tablet 1,000 mcg PO DAILY 02/08/25 inulin 1.7 gram chewable tablet (Fiber Gummies) 1.7 g PO DAILY 02/08/25 lactase 3,000 unit tablet (Lactaid) 3,000 unit PO BID FOR LACTOSE INTOLERANCE 02/08/25 loperamide 2 mg capsule (Anti-Diarrheal (loperamide)) 2 mg PO PRN LOOSE STOOL 02/08/25 metformin 500 mg tablet 500 mg PO BID 02/08/25 multivitamin with minerals (Multiple Vitamin-Minerals tablet) 1 tab PO DAILY 02/08/25 oxycodone 5 mg tablet 2.5 mg PO TID PRN PRN pain 02/08/25 polyethylene glycol 3350 17 gram/dose oral powder (Miralax) 17 g PO QODAY CONSTIPATION 02/08/25 Physical Exam Narrative GENERAL: cooperative HEENT: Atraumatic; normocephalic EYES; Anicteric, Normal Conjunctiva NECK; supple, normal thyroid, RESPIRATORY: Diminished to auscultation CARDIOVASCULAR: Regular S1 S2, GI: soft, normoactive bowel sounds, : No Renal angle tenderness; EXTREMITIES: No edema, no clubbing, MUSCULOSKELETAL: no muscle wasting NEURO: Awake; no lateralizing signs. SKIN: No Rash PSYCH; Flat affect Weight / BMI Weight Weight: 68.1 kg Body Mass Index (BMI) 26.6 ABG / Lab / Microbiology Data 04/26/25 06:32 04/26/25 06:32 Laboratory: Laboratory Results - last 24 hr 04/26/25 11:13: POC Glucose 294 H 04/26/25 16:16: POC Glucose 180 H 04/26/25 22:58: POC Glucose 159 H 04/27/25 06:46: POC Glucose 180 H D/C Instructions Discharge Activity: Return to Normal Activity Call your doctor if you observe: Fever of 101 or Higher, Shortness of breath, Fainting spells and Chest pain DC O2, CPAP, BIPAP Needs Home O2 Discharge instructions: No Meaningful Use Info Meaningful Use Meaningful Use Diagnoses (Choose all that apply): None applicable Discharge Plan Admission Admit Date/Time: 04/25/25 00:56 Attending Provider: Surjit Johns Primary Care Provider: Jose E Garcia Consulting Providers: Surjit Guerrero; Meenakshi Hutchinson Discharge Orders/Prescriptions Prescriptions: Continued valsartan 320 mg tablet 320 mg PO DAILY Patient Comments: TAKE 1 TABLET BY MOUTH EVERY DAY meclizine 12.5 mg tablet 12.5 mg PO Q6H PRN (Reason: dizziness) clobetasol 0.05 % ointment 1 applic topical BID PRN (Reason: rash) hyoscyamine sulfate 0.125 mg tablet, sublingual 0.125 mg sublingual Q4H PRN (Reason: dyspepsia) linagliptin 5 mg tablet 5 mg PO DAILY ondansetron 4 mg tablet,disintegrating 4 mg PO Q6H PRN (Reason: nausea and vomiting) Florajen Acidophilus 20 billion cell capsule 20,000 mmu cells PO QDAY Qty: 90 1RF tolterodine [Detrol LA] 2 MG capsule,extended release 24hr 2 mg PO QHS Patient Comments: URINARY MEDICATION atorvastatin 40 MG tablet 40 mg PO QHS Patient Comments: CHOLESTEROL fluoxetine 40 mg capsule 40 mg PO DAILY amlodipine 10 mg tablet 10 mg PO DAILY hydrochlorothiazide 12.5 mg capsule 12.5 mg PO DAILY bupropion HCl 150 mg tablet extended release 24 hr 150 mg PO DAILY magnesium hydroxide [Milk of Magnesia] 400 mg/5 mL suspension 30 ml PO DAILY PRN (Reason: constipation) glimepiride 1 mg tablet 1 mg PO DAILY Patient Comments: TAKE 1 TABLET BY MOUTH EVERY DAY WITH BREAKFAST oxycodone 5 mg tablet 2.5 mg PO TID PRN PRN (Reason: pain) Multiple Vitamin-Minerals Tablet 1 tab PO DAILY cyanocobalamin (vitamin B-12) 1,000 mcg tablet 1,000 mcg PO DAILY Fiber Gummies 1.7 gram tablet,chewable 1.7 g PO DAILY Rx Instructions: MED LIST FROM [facility] DOES NOT SPECIFY STRENGHTH lactase [Lactaid] 3,000 unit tablet 3,000 unit PO BID Rx Instructions: PRISON LIST DOES NOT SPECIFY STRENGTH metformin 500 mg tablet 500 mg PO BID loperamide [Anti-Diarrheal (loperamide)] 2 mg capsule 2 mg PO PRN Rx Instructions: T1T PRN EACH ADDITIONAL LOOSE STOOL polyethylene glycol 3350 [Miralax] 17 gram/dose powder 17 g PO QODAY Referrals / Follow Up: Jose E Garcia MD [Primary Care Provider, Family Practice] - Within 2 Weeks Disposition Disposition (needs filled in before D/C Order can be placed): Home Health Service Charges/Coding Visit Charges Inpatient E&M: 53484 Disch Hosp >30min
--- NOTE | 2025-04-27 09:49 | CASEMGMT ---
Addendum entered by Jessica Sheikh 04/27/25 11:02: Social Work SW spoke w/pt's daughter Amara, she spoke to Lesly at [facility] who states the doctor here said pt needs a higher level of care. SW read through the H&P, it seems this was written prior to pt having PT. Pt came in w/inability to ambulate but walked 200 feet with PT, so it seems physician was stating needed a higher level of care due to original diagnosis. JANELLE explained will call [facility] and explain this to them. SW also spoke w/physician caring for pt today. He does think pt will need memory care, though does think it's fair to have pt return to her original room to see how she does, and if she cannot manage then have pt moved to memory care. JANELLE called Lesly at [facility]. JANELLE explained to Lesly that the H&P where it is documented pt needs a higher level of care was written prior to pt having PT. Pt walked 200 feet contact guard w/PT. JANELLE explained did speak w/pt's physician today who does think pt will need memory care but thought it would be reasonable to have pt return to her regular room to see how she does, then move her if needed. Lesly states that they did have this conversation already with the daughter as well, and told her they would have pt return to her original room for 72 hours to see how she does and then make a decision. She also informed SW that pt's son is already planning to pick pt up between 3-3:30pm. JANELLE faxed the discharge summary to [facility]. JANELLE called Amara back, relayed the above information, and that SW was already aware pt's son is picking her up between 3:30. SW did let her know that the physician here does think pt may need memory care at some point but agreeable that pt could return to her regular room to see how she does. JANELLE reiterated what Lesly said, that pt can return to her room for 72 hours and they will see how she does, and then decide if she needs to go to memory care. JANELLE did mention that the RN at [facility] said pt tried to wander out of the building so that is concerning. Daughter states that this was an exaggerated situation, pt was following her son out as she wanted to say bye to him one more time. At this time no further needs, pt will return to [facility], summary faxed, HHC resumed with [facility](not [facility]), and son will cotton picker pt between 3-3:30pm. [facility] Original Note: Social Work SW called [facility], spoke w/nurse Radha. SW explained pt is ready to return today, inquired what HHC agency pt has. She called the [facility], who said it is [facility]. JANELLE then informed as per Shavon, they do not want pt returning to [place] unless she comes back to their memory care unit, as pt tried to wander out of the facility recently, they do not feel is safe. SW inquired if Shavon has spoken w/family about this yet, JANELLE informed no, Shavon was hoping to speak to family before pt is d/c. SW explained pt is d/c, and they need to speak w/the family today. SW explained will call the daughter and ask her to call the [facility]. JANELLE called Amara, pt's daughter. SW let her know pt is d/c, however as per [facility], they want pt to move to memory care, SW confirmed w/daughter that [facility] has not spoken w/her about this. JANELLE asked her to call the [facility], and then asked her to call JANELLE back. SW will await return calls from [facility] and daughter. SW asked d/c development and planning engineer to reach out to [facility] regarding the [facility]. Daughter also has stated she can take pt back when it is worked out where pt is going at [facility]. [facility]
--- NOTE | 2025-04-27 09:49 | CASEMGMT ---
Addendum entered by Jessica Sheikh 04/27/25 11:02: Social Work SW spoke w/pt's daughter Amara, she spoke to Lesly at [facility] who states the doctor here said pt needs a higher level of care. SW read through the H&P, it seems this was written prior to pt having PT. Pt came in w/inability to ambulate but walked 200 feet with PT, so it seems physician was stating needed a higher level of care due to original diagnosis. JANELLE explained will call [facility] and explain this to them. SW also spoke w/physician caring for pt today. He does think pt will need memory care, though does think it's fair to have pt return to her original room to see how she does, and if she cannot manage then have pt moved to memory care. JANELLE called Lesly at [facility]. JANELLE explained to Lesly that the H&P where it is documented pt needs a higher level of care was written prior to pt having PT. Pt walked 200 feet contact guard w/PT. JANELLE explained did speak w/pt's physician today who does think pt will need memory care but thought it would be reasonable to have pt return to her regular room to see how she does, then move her if needed. Lesly states that they did have this conversation already with the daughter as well, and told her they would have pt return to her original room for 72 hours to see how she does and then make a decision. She also informed SW that pt's son is already planning to pick pt up between 3-3:30pm. JANELLE faxed the discharge summary to [facility]. JANELLE called [facility] back, relayed the above information, and that SW was already aware pt's son is picking her up between 3:30. SW did let her know that the physician here does think pt may need memory care at some point but agreeable that pt could return to her regular room to see how she does. JANELLE reiterated what Lesly said, that pt can return to her room for 72 hours and they will see how she does, and then decide if she needs to go to memory care. JANELLE did mention that the RN at [facility] said pt tried to wander out of the building so that is concerning. Daughter states that this was an exaggerated situation, pt was following her son out as she wanted to say bye to him one more time. At this time no further needs, pt will return to [facility], summary faxed, HHC resumed with [facility](not [facility]), and son will pick up attendant pt between 3-3:30pm. [facility] [place] Original Note: Social Work SW called [facility], spoke w/nurse Radha. SW explained pt is ready to return today, inquired what HHC agency pt has. She called the [facility], who said it is [facility]. JANELLE then informed as per [facility], they do not want pt returning to [place] unless she comes back to their memory care unit, as pt tried to wander out of the facility recently, they do not feel is safe. SW inquired if Shavon has spoken w/family about this yet, JANELLE informed no, Shavon was hoping to speak to family before pt is d/c. SW explained pt is d/c, and they need to speak w/the family today. SW explained will call the daughter and ask her to call the [facility]. JANELLE called Amara, pt's daughter. SW let her know pt is d/c, however as per [facility], they want pt to move to memory care, SW confirmed w/daughter that [facility] has not spoken w/her about this. JANELLE asked her to call the [facility], and then asked her to call JANELLE back. SW will await return calls from [facility] and daughter. SW asked d/c desk assistant to reach out to [facility] regarding the [facility]. Daughter also has stated she can take pt back when it is worked out where pt is going at [facility]. [facility]
--- NOTE | 2025-04-27 10:02 | CASEMGMT ---
Discharge Planning VM left for Shavon [facility] to get contact information for [facility]. Hattie Mayen DC Planning Asst.
--- NOTE | 2025-04-27 10:02 | CASEMGMT ---
Discharge Planning VM left for Shavon [facility] to get contact information for [facility]. Hattie Mayen DC Planning Asst.
--- NOTE | 2025-04-27 10:30 | CASEMGMT ---
Addendum entered by Hattie Mayen 04/27/25 10:52: Pt currently receives PT only. Original Note: Discharge Planning Pt is active with [facility]. Referral sent via [facility] with note asking for verification of disciplines currently receiving. Hattie Mayen DC Planning Asst.
--- NOTE | 2025-04-27 15:14 | PHA.DC.MR.R ---
Pharmacy [place] Med Reconciliation Pharmacy Service has performed discharge medication reconciliation for this patient. The patient's discharge medication list was reviewed for discrepancies and discrepancies were resolved. Medications at Discharge Home Medications atorvastatin 40 mg tablet 40 mg PO QHS cholestrol 02/14/14 tolterodine 2 mg capsule,extended release 24 hr (Detrol LA) 2 mg PO QHS overactive bladder 02/14/14 valsartan 320 mg tablet 320 mg PO DAILY HTN 04/10/21 amlodipine 10 mg tablet 10 mg PO DAILY bp 05/02/21 bupropion HCl 150 mg 24 hr tablet, extended release 150 mg PO DAILY mood 05/02/21 fluoxetine 40 mg capsule 40 mg PO DAILY depression 05/02/21 hydrochlorothiazide 12.5 mg capsule 12.5 mg PO DAILY bp/fluid 05/02/21 clobetasol 0.05 % topical ointment 1 applic topical BID PRN rash 01/25/23 hyoscyamine sulfate 0.125 mg sublingual tablet 0.125 mg sublingual Q4H PRN dyspepsia 01/25/23 linagliptin 5 mg tablet 5 mg PO DAILY 01/25/23 meclizine 12.5 mg tablet 12.5 mg PO Q6H PRN dizziness 01/25/23 ondansetron 4 mg disintegrating tablet 4 mg PO Q6H PRN nausea and vomiting 02/13/23 magnesium hydroxide 400 mg/5 mL oral suspension (Milk of Magnesia) 30 ml PO DAILY PRN constipation 08/04/23 glimepiride 1 mg tablet 1 mg PO DAILY 08/05/23 Lactobacillus acidophilus 20 billion cell capsule (Florajen Acidophilus) 20,000 mmu cells PO QDAY #90 caps 07/30/24 cyanocobalamin (vitamin B-12) 1,000 mcg tablet 1,000 mcg PO DAILY 02/08/25 inulin 1.7 gram chewable tablet (Fiber Gummies) 1.7 g PO DAILY 02/08/25 lactase 3,000 unit tablet (Lactaid) 3,000 unit PO BID FOR LACTOSE INTOLERANCE 02/08/25 loperamide 2 mg capsule (Anti-Diarrheal (loperamide)) 2 mg PO PRN LOOSE STOOL 02/08/25 metformin 500 mg tablet 500 mg PO BID 02/08/25 multivitamin with minerals (Multiple Vitamin-Minerals tablet) 1 tab PO DAILY 02/08/25 oxycodone 5 mg tablet 2.5 mg PO TID PRN PRN pain 02/08/25 polyethylene glycol 3350 17 gram/dose oral powder (Miralax) 17 g PO QODAY CONSTIPATION 02/08/25
[2025-04-27 15:16] VITALS: BP 126/57; PULSE 63; RESP 16; TEMP 36.7; O2SAT 100
== END 2025-04-27 15:26 | disposition home health service (06) ==
LOC: ED 04-25 00:35 → MS3 04-25 01:06
PROVIDERS: Internal Medicine; Admitting Provider Internal Medicine; Emergency Provider Emergency Medicine; PCP Family Medicine; Visit Provider Internal Medicine
DX: M17.12 Unilateral primary osteoarthritis, left knee (principal); F03.C18 Unspecified dementia, severe, with other behavioral disturbance; G30.9 Alzheimer's disease, unspecified; E11.42 Type 2 diabetes mellitus with diabetic polyneuropathy; Z79.4 Long term (current) use of insulin; R53.1 Weakness; I10 Essential (primary) hypertension; R26.2 Difficulty in walking, not elsewhere classified; D72.829 Elevated white blood cell count, unspecified; I49.3 Ventricular premature depolarization; E80.6 Other disorders of bilirubin metabolism; R53.81 Other malaise; Z87.891 Personal history of nicotine dependence; W19.XXXA Unspecified fall, initial encounter; Z79.84 Long term (current) use of oral hypoglycemic drugs; E78.00 Pure hypercholesterolemia, unspecified; F32.A Depression, unspecified; Z79.899 Other long term (current) drug therapy; R29.810 Facial weakness; N32.81 Overactive bladder; G25.0 Essential tremor; K59.09 Other constipation; R29.6 Repeated falls
CPT/HCPCS: 36415; 70450; 72125; 72170; 72192; 73552; 73560; 80048; 80053; 81001; 82607; 82746; 82962; 83036; 83690; 83735; 84100; 84443; 85025; 85027; 93005; 96361; 96372; 96374; 96375; 97162; 97165; 97530; 97535; 99221; 99285; A4216; G0378; J2405